=== PATIENT | female | born 1940 | race Caucasian/White ===

== ENCOUNTER → 2018-06-13 12:58 | Outpatient (CLI) | payer MEDICARE, SELFPAY ==
[2018-06-13 13:28] LABS: Abs Immature Grans 0.01 k/cumm (0.0-0.09); Absolute Basophil Count 0.02 k/cumm (0.0-0.2); Absolute Eosinophil Count 0.13 k/cumm (0.0-0.7); Absolute Lymphocyte Count 2.21 k/cumm (1.2-3.4); Absolute Monocyte Count 0.52 k/cumm (0.11-0.7); Absolute Neutrophil Count 5.07 k/cumm (1.2-6.7); Basophils % 0.3; Eosinophils % 1.6; HCT 43.7 % (36.0-46.0); HGB 13.7 g/dL (12.0-15.5); Immature Grans % 0.1; Lymphocytes % 27.8; Mean Corp. HGB Concentration 31.4 g/dL (32.0-36.0); Mean Corpuscular Hemoglobin 28.7 pg (27.0-33.0); Mean Corpuscular Volume 91.4 fL (80-95); Mean Platelet Volume 9.6 fL (8.0-11.0); Monocytes % 6.5; Neutrophils % 63.7; Platelet Count 222 x1000/uL (130-400); RBC 4.78 m/cumm (4.00-5.20); RBC Distribution Width 14.5 % (11.7-14.6); White Blood Cell Count 7.96 k/cumm (4.4-10.8)
[2018-06-13 13:50] LABS: ALT 19 U/L (12-78); AST 15 U/L (15-37); Albumin 3.5 g/dL (3.4-5.0); Alkaline Phosphatase 76 U/L (46-116); Anion Gap 8.9 mmol/L (3-11); BUN 17 mg/dL (7-18); Bilirubin, Total 0.2 mg/dL (0.2-1.0); CO2 30.1 mmol/L (21.0-32.0); CREATININE 1.22 mg/dL (0.55-1.02); Calcium 8.8 mg/dL (8.5-10.1); Chloride 104 mmol/L (98-107); Estimated GFR 42.85 (mL/min/1.73m2); Glucose 100 mg/dL (70-100); Potassium 3.7 mmol/L (3.5-5.1); Sodium 143 mmol/L (136-145); Total Protein 7.6 g/dL (6.4-8.2)
[2018-06-15 11:46] LABS: CEA 0.9 ng/ml
== END ==
PROVIDERS: PCP Family Medicine; Visit Provider Internal Medicine Hematology & Oncology
DX: C50.911 Malignant neoplasm of unspecified site of right female breast (principal); C18.2 Malignant neoplasm of ascending colon; Z17.0 Estrogen receptor positive status [ER+]
CPT/HCPCS: 36415; 80053; 82378; 85025

== ENCOUNTER 2018-08-07 10:46 | Outpatient (CLI) | payer MEDICARE, SELFPAY ==
[2018-08-07 11:08] LABS: Abs Immature Grans 0.01 k/cumm (0.0-0.09); Absolute Basophil Count 0.03 k/cumm (0.0-0.2); Absolute Lymphocyte Count 2.07 k/cumm (1.2-3.4); Absolute Monocyte Count 0.57 k/cumm (0.11-0.7); Absolute Neutrophil Count 3.74 k/cumm (1.2-6.7); Basophils % 0.5; Eosinophils % 1.5; HCT 43.6 % (36.0-46.0); HGB 13.6 g/dL (12.0-15.5); Immature Grans % 0.2; Lymphocytes % 31.7; Mean Corp. HGB Concentration 31.2 g/dL (32.0-36.0); Mean Corpuscular Hemoglobin 28.6 pg (27.0-33.0); Mean Corpuscular Volume 91.6 fL (80-95); Mean Platelet Volume 9.5 fL (8.0-11.0); Monocytes % 8.7; Neutrophils % 57.4; Platelet Count 249 x1000/uL (130-400); RBC 4.76 m/cumm (4.00-5.20); RBC Distribution Width 15.2 % (11.7-14.6); White Blood Cell Count 6.52 k/cumm (4.4-10.8)
[2018-08-07 11:16] LABS: ALT 23 U/L (12-78); AST 17 U/L (15-37); Albumin 3.5 g/dL (3.4-5.0); Alkaline Phosphatase 73 U/L (46-116); Anion Gap 8.6 mmol/L (3-11); BUN 15 mg/dL (7-18); Bilirubin, Total 0.2 mg/dL (0.2-1.0); CO2 31.4 mmol/L (21.0-32.0); CREATININE 1.12 mg/dL (0.55-1.02); Calcium 9.4 mg/dL (8.5-10.1); Chloride 102 mmol/L (98-107); Glucose 97 mg/dL (70-100); Sodium 142 mmol/L (136-145); Total Protein 7.5 g/dL (6.4-8.2)
[2018-08-08 10:03] LABS: CEA 1.3 ng/ml
== END 2018-08-07 11:06 ==
PROVIDERS: PCP Family Medicine; Visit Provider Nurse Practitioner Adult Health
DX: C50.911 Malignant neoplasm of unspecified site of right female breast (principal); Z17.0 Estrogen receptor positive status [ER+]; C18.2 Malignant neoplasm of ascending colon
CPT/HCPCS: 36415; 80053; 82378; 85025

== ENCOUNTER 2018-08-15 00:40 | Outpatient (CLI) | payer MEDICARE, SELFPAY ==
--- NOTE | 2018-08-15 08:55 | DI.NM_ITS ---
SYMPTOMS/DIAGNOSIS: RIGHT HIP PAIN, H/O COLON CA AND BREAST CA, ? METS, D05.90 , C18.2 WHOLE BODY BONE SCAN: Comparison is made with CT of the chest, abdomen and pelvis dated March,. 24.0 mCi of technetium 99m MDP were administered IV. There is mildly increased uptake in the mid thoracic spine and lower lumbar spine. Significant degenerative changes are seen on the CT. Mildly increased activity is also seen in both hips. Degenerative changes are seen at the inferior hip joints bilaterally. There are bilateral knee prostheses. There is increased activity in the right foot and ankle, also likely representing degenerative changes. IMPRESSION: Areas of increased activity consistent with degenerative changes in the spine, hips and right foot. There are no findings to suggest metastatic disease.
== END 2018-08-15 01:00 ==
PROVIDERS: PCP Family Medicine; Visit Provider Nurse Practitioner Adult Health
DX: M25.551 Pain in right hip (principal); M16.11 Unilateral primary osteoarthritis, right hip; M19.071 Primary osteoarthritis, right ankle and foot; Z96.653 Presence of artificial knee joint, bilateral
CPT/HCPCS: 78306

== ENCOUNTER 2018-10-04 14:55 | Outpatient (CLI) | payer MEDICARE, SELFPAY ==
[2018-10-04 15:39] LABS: Abs Immature Grans 0.01 k/cumm (0.0-0.09); Absolute Basophil Count 0.02 k/cumm (0.0-0.2); Absolute Eosinophil Count 0.13 k/cumm (0.0-0.7); Absolute Lymphocyte Count 1.85 k/cumm (1.2-3.4); Absolute Monocyte Count 0.59 k/cumm (0.11-0.7); Absolute Neutrophil Count 4.96 k/cumm (1.2-6.7); Basophils % 0.3; Eosinophils % 1.7; HCT 42.3 % (36.0-46.0); HGB 13.5 g/dL (12.0-15.5); Immature Grans % 0.1; Lymphocytes % 24.5; Mean Corp. HGB Concentration 31.9 g/dL (32.0-36.0); Mean Corpuscular Volume 90.8 fL (80-95); Mean Platelet Volume 9.5 fL (8.0-11.0); Monocytes % 7.8; Neutrophils % 65.6; Platelet Count 230 x1000/uL (130-400); RBC 4.66 m/cumm (4.00-5.20); RBC Distribution Width 14.7 % (11.7-14.6); White Blood Cell Count 7.56 k/cumm (4.4-10.8)
[2018-10-04 15:48] LABS: ALT 21 U/L (12-78); AST 16 U/L (15-37); Albumin 3.5 g/dL (3.4-5.0); Alkaline Phosphatase 86 U/L (46-116); Anion Gap 8.4 mmol/L (3-11); BUN 19 mg/dL (7-18); Bilirubin, Total 0.2 mg/dL (0.2-1.0); CO2 30.6 mmol/L (21.0-32.0); Calcium 8.8 mg/dL (8.5-10.1); Chloride 103 mmol/L (98-107); Estimated GFR 53.91 (mL/min/1.73m2); Glucose 119 mg/dL (70-100); Potassium 3.3 mmol/L (3.5-5.1); Sodium 142 mmol/L (136-145); Total Protein 7.4 g/dL (6.4-8.2)
== END 2018-10-04 15:15 ==
PROVIDERS: PCP Family Medicine; Visit Provider Nurse Practitioner Adult Health
DX: C18.2 Malignant neoplasm of ascending colon (principal); C50.911 Malignant neoplasm of unspecified site of right female breast; Z17.0 Estrogen receptor positive status [ER+]
CPT/HCPCS: 36415; 80053; 85025

== ENCOUNTER 2018-10-13 01:22 | Outpatient (CLI) | payer MEDICARE, SELFPAY ==
--- NOTE | 2018-10-13 10:15 | DI.CT_ITS ---
SYMPTOM/DIAGNOSIS: H/O COLON CA AND BREAST CA. RESTAGE, C50.911, Z17.0 CT CHEST, ABDOMEN AND PELVIS: The study is compared with the previous abdominal CT of 09/08/2017 and was carried out with an intravenous injection of 100 cc Omnipaque 350. CHEST CT: There are emphysematous changes in the lungs. No mass or infiltrate is seen. There is no evidence of hilar or mediastinal adenopathy. There is no pleural effusion. The heart is not enlarged. There is no pericardial effusion. There is no evidence of pulmonary emboli. There are atherosclerotic changes involving the aorta without evidence of an aneurysm. There are no bony findings to suggest metastatic disease. Note is made of bilateral breast implants. There is no evidence of implant rupture. SUMMARY: No evidence of metastatic disease in the chest. ABDOMINAL CT: The with intravenous contrast enhanced CT examination of the abdomen was carried out according to the usual protocol. The liver is intact. The patient is status post cholecystectomy. The pancreas is somewhat atrophic. There is no evidence of a pancreatic mass. There is no evidence of biliary dilatation. The spleen is intact. A small splenule is noted lying anterior to the tip of the spleen. The kidneys and bladder appear unremarkable save for a very small right renal cyst. There is prominence of the left adrenal gland is noted. The findings most likely represent hypertrophy. There is no demonstrated bowel abnormality identified. There is no evidence of obstruction. There is no evidence of an acute appendix. There is no evidence of free air or fluid in the intraperitoneal space in the abdomen or pelvis. Bladder wall thickening is noted likely on the basis of nondistension. The patient is status post hysterectomy. There are degenerative changes throughout the dorsal and lumbar spine in this patient with no evidence of a localized area of bony sclerosis, expansion or destruction. Nothing specific to suggest metastatic disease. When compared with the prior study there is nothing on today's examination to suggest metastatic disease involving the chest, abdomen or pelvis. Note is made of bilateral breast implants without evidence of implant rupture. She is status post hysterectomy. There is also no evidence of metastatic bony disease.
[2018-10-13] MEDS: Omnipaque 350 MG/ML 100 ML BTL IJ (10:21)
== END 2018-10-13 01:42 ==
PROVIDERS: PCP Family Medicine; Visit Provider Nurse Practitioner Adult Health
DX: Z85.038 Personal history of other malignant neoplasm of large intestine (principal); C50.911 Malignant neoplasm of unspecified site of right female breast; Z17.0 Estrogen receptor positive status [ER+]; Z98.82 Breast implant status
CPT/HCPCS: 74177; 71260; J3490

== ENCOUNTER 2018-11-07 10:36 | Outpatient (CLI) | payer MEDICARE, SELFPAY ==
[2018-11-07 11:20] LABS: Abs Immature Grans 0.01 k/cumm (0.0-0.09); Absolute Basophil Count 0.02 k/cumm (0.0-0.2); Absolute Eosinophil Count 0.09 k/cumm (0.0-0.7); Absolute Lymphocyte Count 2.06 k/cumm (1.2-3.4); Absolute Monocyte Count 0.48 k/cumm (0.11-0.7); Absolute Neutrophil Count 4.05 k/cumm (1.2-6.7); Basophils % 0.3; Eosinophils % 1.3; HGB 13.5 g/dL (12.0-15.5); Immature Grans % 0.1; Lymphocytes % 30.7; Mean Corp. HGB Concentration 31.4 g/dL (32.0-36.0); Mean Corpuscular Hemoglobin 28.7 pg (27.0-33.0); Mean Corpuscular Volume 91.3 fL (80-95); Monocytes % 7.2; Neutrophils % 60.4; Platelet Count 216 x1000/uL (130-400); RBC 4.71 m/cumm (4.00-5.20); RBC Distribution Width 14.2 % (11.7-14.6); White Blood Cell Count 6.71 k/cumm (4.4-10.8)
[2018-11-07 11:26] LABS: ALT 22 U/L (12-78); AST 16 U/L (15-37); Albumin 3.3 g/dL (3.4-5.0); Alkaline Phosphatase 78 U/L (46-116); Anion Gap 9.5 mmol/L (3-11); BUN 20 mg/dL (7-18); Bilirubin, Total 0.3 mg/dL (0.2-1.0); CO2 31.5 mmol/L (21.0-32.0); CREATININE 1.01 mg/dL (0.55-1.02); Calcium 9.3 mg/dL (8.5-10.1); Chloride 102 mmol/L (98-107); Estimated GFR 53.29 (mL/min/1.73m2); Glucose 93 mg/dL (70-100); Potassium 4.1 mmol/L (3.5-5.1); Sodium 143 mmol/L (136-145); Total Protein 7.4 g/dL (6.4-8.2)
[2018-11-09 10:24] LABS: CEA 0.8 ng/ml
== END 2018-11-07 10:56 ==
PROVIDERS: PCP Family Medicine; Visit Provider Nurse Practitioner Adult Health
DX: C50.911 Malignant neoplasm of unspecified site of right female breast (principal); Z17.0 Estrogen receptor positive status [ER+]; C18.2 Malignant neoplasm of ascending colon
CPT/HCPCS: 36415; 80053; 82378; 85025

== ENCOUNTER 2019-02-01 10:17 | Outpatient (CLI) | payer MEDICARE, SELFPAY ==
[2019-02-01 10:45] LABS: Abs Immature Grans 0.01 k/cumm (0.0-0.09); Absolute Basophil Count 0.02 k/cumm (0.0-0.2); Absolute Eosinophil Count 0.15 k/cumm (0.0-0.7); Absolute Lymphocyte Count 1.82 k/cumm (1.2-3.4); Absolute Monocyte Count 0.55 k/cumm (0.11-0.7); Absolute Neutrophil Count 4.86 k/cumm (1.2-6.7); Basophils % 0.3; HCT 42.9 % (36.0-46.0); HGB 13.5 g/dL (12.0-15.5); Immature Grans % 0.1; Lymphocytes % 24.6; Mean Corp. HGB Concentration 31.5 g/dL (32.0-36.0); Mean Corpuscular Hemoglobin 28.5 pg (27.0-33.0); Mean Corpuscular Volume 90.5 fL (80-95); Mean Platelet Volume 9.7 fL (8.0-11.0); Monocytes % 7.4; Neutrophils % 65.6; Platelet Count 223 x1000/uL (130-400); RBC 4.74 m/cumm (4.00-5.20); RBC Distribution Width 14.9 % (11.7-14.6); White Blood Cell Count 7.41 k/cumm (4.4-10.8)
[2019-02-01 11:30] LABS: ALT 28 U/L (12-78); AST 20 U/L (15-37); Albumin 3.4 g/dL (3.4-5.0); Alkaline Phosphatase 94 U/L (46-116); Anion Gap 7.5 mmol/L (3-11); BUN 14 mg/dL (7-18); Bilirubin, Total 0.3 mg/dL (0.2-1.0); CO2 30.5 mmol/L (21.0-32.0); CREATININE 1.08 mg/dL (0.55-1.02); Calcium 9.2 mg/dL (8.5-10.1); Chloride 102 mmol/L (98-107); Estimated GFR 49.33 (mL/min/1.73m2); Glucose 101 mg/dL (70-100); Potassium 4.1 mmol/L (3.5-5.1); Sodium 140 mmol/L (136-145); Total Protein 7.5 g/dL (6.4-8.2)
[2019-02-02 10:07] LABS: CEA 1.2 ng/ml
== END 2019-02-01 10:37 ==
PROVIDERS: PCP Family Medicine; Visit Provider Internal Medicine Hematology & Oncology
DX: C18.2 Malignant neoplasm of ascending colon (principal); R53.81 Other malaise
CPT/HCPCS: 36415; 80053; 82378; 85025

== ENCOUNTER 2019-05-14 00:40 | Outpatient (CLI) | payer MEDICARE, SELFPAY ==
[2019-05-14 11:47] LABS: Abs Immature Grans 0.02 k/cumm (0.0-0.09); Absolute Basophil Count 0.01 k/cumm (0.0-0.2); Absolute Eosinophil Count 0.11 k/cumm (0.0-0.7); Absolute Lymphocyte Count 2.03 k/cumm (1.2-3.4); Absolute Monocyte Count 0.49 k/cumm (0.11-0.7); Absolute Neutrophil Count 3.14 k/cumm (1.2-6.7); Basophils % 0.2; Eosinophils % 1.9; HCT 42.9 % (36.0-46.0); HGB 13.5 g/dL (12.0-15.5); Immature Grans % 0.3; Mean Corp. HGB Concentration 31.5 g/dL (32.0-36.0); Mean Corpuscular Hemoglobin 28.5 pg (27.0-33.0); Mean Corpuscular Volume 90.5 fL (80-95); Mean Platelet Volume 10.1 fL (8.0-11.0); Monocytes % 8.4; Neutrophils % 54.2; Platelet Count 233 x1000/uL (130-400); RBC 4.74 m/cumm (4.00-5.20); RBC Distribution Width 14.9 % (11.7-14.6)
[2019-05-14 12:05] LABS: ALT 23 U/L (12-78); AST 15 U/L (15-37); Albumin 3.3 g/dL (3.4-5.0); Alkaline Phosphatase 85 U/L (46-116); Anion Gap 8.6 mmol/L (3-11); BUN 16 mg/dL (7-18); Bilirubin, Total 0.3 mg/dL (0.2-1.0); CO2 28.4 mmol/L (21.0-32.0); CREATININE 1.08 mg/dL (0.55-1.02); Calcium 8.6 mg/dL (8.5-10.1); Chloride 105 mmol/L (98-107); Estimated GFR 49.19 (mL/min/1.73m2); Glucose 86 mg/dL (70-100); Potassium 4.1 mmol/L (3.5-5.1); Sodium 142 mmol/L (136-145); Total Protein 7.1 g/dL (6.4-8.2)
[2019-05-14] MEDS: Omnipaque 350 MG/ML 100 ML BTL IJ (12:25)
--- NOTE | 2019-05-14 12:30 | DI.CT_ITS ---
SYMPTOM/DIAGNOSIS: MALIGNANT NEOPLASM RIGHT BREAST C50.911 Z17.0, MALIGNANT NEOPLASM COLON C18.2 CT CHEST, ABDOMEN AND PELVIS: Comparison is 10/13/18, CT scan of the chest, abdomen and pelvis was performed following oral and intravenous contrast material. CT ABDOMEN AND PELVIS: The liver is normal in size. No suspicious hepatic mass is seen. The portal, superior mesenteric and splenic veins are patent. The patient is status post cholecystectomy. There is no biliary ductal dilatation. The pancreas is unremarkable as is the spleen. Incidental note is made of an accessory spleen. There is unchanged nodularity of the adrenal glands bilaterally. This has been stable compared to the older CT scan available on 01/23/17 The kidneys show normal and symmetric enhancement. There are stable bilateral renal cysts present. No suspicious renal masses are identified. No evidence of obstruction is present. The urinary bladder is intact. The patient appears to be status post hysterectomy. There is atherosclerosis of the abdominal aorta but no aneurysmal dilatation is present. No significant abdominal or pelvic adenopathy, ascites or pneumoperitoneum is present. There is diverticulosis of the colon but no evidence of acute diverticulitis. There is a moderate amount of retained stool throughout the colon. The bowel shows no evidence of obstruction or inflammation. There is no evidence of acute appendicitis present. Degenerative changes are seen in the spine. No evidence of osseous metastatic disease is present. IMPRESSION: No evidence of abdominal or pelvic metastatic disease. Incidental findings in the abdomen and pelvis as described above. CT CHEST: The thoracic aorta is of normal caliber with mild atherosclerosis. Heart size is within normal limits. No significant pericardial effusion is seen. Mild coronary artery calcifications present. No significant thoracic adenopathy is appreciated. No pleural effusion or pneumothorax is identified. Moderately severe central lobular emphysematous are present in the lungs. There is scarring in the lung bases. No focal consolidating infiltrates are seen. No suspicious noncalcified pulmonary nodules are appreciated. There is a triangular 5 mm nodule seen associated with the lateral aspect of the left major fissure likely reflecting an intrapulmonary lymph node. This is unchanged. The tracheobronchial tree is unremarkable. Degenerative changes are seen in the spine. No sclerotic lesions are seen in the bones. IMPRESSION: No evidence of thoracic metastatic disease.
== END 2019-05-14 01:00 ==
PROVIDERS: PCP Family Medicine; Visit Provider Nurse Practitioner Adult Health
DX: C50.911 Malignant neoplasm of unspecified site of right female breast (principal); Z17.0 Estrogen receptor positive status [ER+]; C18.2 Malignant neoplasm of ascending colon; Z90.49 Acquired absence of other specified parts of digestive tract; Z90.710 Acquired absence of both cervix and uterus
CPT/HCPCS: 36415; 74177; 80053; 71260; 82378; 85025; J3490

== ENCOUNTER → 2019-07-26 13:37 | Outpatient (BNVA) | payer MEDICARE, SELFPAY | PROVIDERS: PCP Family Medicine; Referring Provider Family Medicine; Visit Provider Nurse Practitioner Adult Health | DX: G56.21 Lesion of ulnar nerve, right upper limb (principal); G56.01 Carpal tunnel syndrome, right upper limb; I10 Essential (primary) hypertension; J44.9 Chronic obstructive pulmonary disease, unspecified | CPT/HCPCS: 95909; 99203; 99214 ==

== ENCOUNTER → 2019-07-30 08:50 | Outpatient (BNVA) | payer MEDICARE, SELFPAY | PROVIDERS: PCP Family Medicine; Referring Provider Family Medicine; Visit Provider Psychiatry & Neurology Neurology | DX: R69 Illness, unspecified (principal) ==

== ENCOUNTER 2019-09-10 09:02 | Outpatient (CLI) | payer MEDICARE, SELFPAY ==
[2019-09-10 09:29] LABS: Abs Immature Grans 0.01 k/cumm (0.0-0.09); Absolute Basophil Count 0.02 k/cumm (0.0-0.2); Absolute Eosinophil Count 0.09 k/cumm (0.0-0.7); Absolute Monocyte Count 0.49 k/cumm (0.11-0.7); Absolute Neutrophil Count 4.45 k/cumm (1.2-6.7); Basophils % 0.3; Eosinophils % 1.4; HCT 42.1 % (36.0-46.0); HGB 13.2 g/dL (12.0-15.5); Immature Grans % 0.2; Mean Corp. HGB Concentration 31.4 g/dL (32.0-36.0); Mean Corpuscular Hemoglobin 28.6 pg (27.0-33.0); Mean Corpuscular Volume 91.3 fL (80-95); Mean Platelet Volume 9.5 fL (8.0-11.0); Monocytes % 7.4; Neutrophils % 66.7; Platelet Count 243 x1000/uL (130-400); RBC 4.61 m/cumm (4.00-5.20); RBC Distribution Width 14.6 % (11.7-14.6); White Blood Cell Count 6.66 k/cumm (4.4-10.8)
[2019-09-10 09:42] LABS: ALT 26 U/L (14-59); AST 15 U/L (15-37); Albumin 3.4 g/dL (3.4-5.0); Alkaline Phosphatase 75 U/L (46-116); Anion Gap 6.7 mmol/L (3-11); BUN 18 mg/dL (7-18); Bilirubin, Total 0.3 mg/dL (0.2-1.0); CO2 32.3 mmol/L (21.0-32.0); CREATININE 1.06 mg/dL (0.55-1.02); Calcium 8.8 mg/dL (8.5-10.1); Chloride 102 mmol/L (98-107); Estimated GFR 50.27 (mL/min/1.73m2); Glucose 102 mg/dL (70-100); Potassium 3.8 mmol/L (3.5-5.1); Sodium 141 mmol/L (136-145); Total Protein 7.4 g/dL (6.4-8.2)
[2019-09-11 10:46] LABS: CEA 1.3 ng/mL (See Note)
== END 2019-09-10 09:22 ==
PROVIDERS: PCP Family Medicine; Visit Provider Internal Medicine Hematology & Oncology
DX: C18.2 Malignant neoplasm of ascending colon (principal)
CPT/HCPCS: 36415; 80053; 82378; 85025

== ENCOUNTER 2019-11-13 10:43 | Outpatient (CLI) | payer MEDICARE, SELFPAY ==
[2019-11-13 11:14] LABS: Abs Immature Grans 0.02 k/cumm (0.0-0.09); Absolute Basophil Count 0.02 k/cumm (0.0-0.2); Absolute Monocyte Count 0.53 k/cumm (0.11-0.7); Absolute Neutrophil Count 5.33 k/cumm (1.2-6.7); Basophils % 0.3; Eosinophils % 1.3; HCT 43.8 % (36.0-46.0); HGB 13.7 g/dL (12.0-15.5); Immature Grans % 0.3 %; Lymphocytes % 23.1; Mean Corp. HGB Concentration 31.3 g/dL (32.0-36.0); Mean Corpuscular Hemoglobin 28.5 pg (27.0-33.0); Mean Corpuscular Volume 91.1 fL (80-95); Mean Platelet Volume 9.3 fL (8.0-11.0); Monocytes % 6.8; Neutrophils % 68.2; Platelet Count 239 x1000/uL (130-400); RBC 4.81 m/cumm (4.00-5.20); RBC Distribution Width 14.6 % (11.7-14.6)
[2019-11-13 11:28] LABS: ALT 17 U/L (14-59); AST 15 U/L (15-37); Albumin 3.4 g/dL (3.4-5.0); Alkaline Phosphatase 75 U/L (46-116); Anion Gap 7.8 mmol/L (3-11); BUN 18 mg/dL (7-18); Bilirubin, Total 0.3 mg/dL (0.2-1.0); CO2 30.2 mmol/L (21.0-32.0); CREATININE 0.97 mg/dL (0.55-1.02); Calcium 9.4 mg/dL (8.5-10.1); Chloride 104 mmol/L (98-107); Estimated GFR 55.69 (mL/min/1.73m2); Glucose 98 mg/dL (74-106); Potassium 4.3 mmol/L (3.5-5.1); Sodium 142 mmol/L (136-145); Total Protein 7.3 g/dL (6.4-8.2)
[2019-11-14 10:20] LABS: CEA 0.8 ng/mL (See Note)
== END 2019-11-13 11:03 ==
PROVIDERS: PCP Family Medicine; Visit Provider Internal Medicine Hematology & Oncology
DX: C18.2 Malignant neoplasm of ascending colon (principal)
CPT/HCPCS: 36415; 80053; 82378; 85025

== ENCOUNTER 2019-11-16 15:06 | Outpatient (CLI) | payer MEDICARE, SELFPAY ==
[2019-11-16] MEDS: Omnipaque 350 MG/ML 100 ML BTL IJ (14:59)
--- NOTE | 2019-11-16 15:01 | DI.CT_ITS ---
EXAM: CT CHEST PE CTA CLINICAL HISTORY: BREAST CANCER C50.911, DYSPNEA R06.00, COLON CANCER C18.2 TECHNIQUE: CT angiography of the chest was performed with a bolus infusion of 100 cc of Omnipaque 35 0. COMPARISON: CT CHEST/ABD/PEL W from 05/14/2019 FINDINGS: Images obtained through the upper abdomen show unremarkable appearance of visualized portions of live r, spleen, pancreas, adrenals, and kidneys. There is a hiatal hernia. There is no evidence of pulmonary embolic disease. No thoracic aortic aneurysm or dissection. Lungs are generally clear. Pulmonary scarring noted at the lung bases and mild emphysematous changes are noted. No mediastinal or hilar adenopathy. 13 millimeter superior mediastinal node, probably unchanged from prior study of 05/14/2019. IMPRESSION: No evidence of pulmonary embolic disease. No gross evidence of intrathoracic metastatic disease in a patient with a history of breast carcinoma.
== END 2019-11-16 15:26 ==
PROVIDERS: PCP Family Medicine; Visit Provider Internal Medicine Hematology & Oncology
DX: R06.09 Other forms of dyspnea (principal); C18.2 Malignant neoplasm of ascending colon; C50.911 Malignant neoplasm of unspecified site of right female breast; K44.9 Diaphragmatic hernia without obstruction or gangrene; R59.0 Localized enlarged lymph nodes
CPT/HCPCS: 71275; J3490

== ENCOUNTER 2019-11-22 01:14 | Outpatient (CLI) | payer MEDICARE, SELFPAY ==
--- NOTE | 2019-11-22 10:46 | DI.NM_ITS ---
APPROVED REPORT Exam: Exercise Treadmill Patient Location: Out-Patient Room/Bed: Stress Nurse: Anu Naidu RN BMI: 37.90 Baseline Rhythm: Sinus Rhythm Indications: Patient reports since last June she has been having SOB and cough with activity (cl imbing stairs, showers, and making bed) that is associated with a ???dull ache??? across her anterior mid chest. The SOB and ???dull ache??? stops with rest. Medical History Medical History: Breast Cancer Cardiac Medications: Aspirin, Hydrochlorothiazide, Potassium Chloride Allergies: Sulfonamide, Letrozole Cardiac Risk Factors: FHX of CAD, HTN, Asthma, COPD Previous Cardiac Procedures: None Pretest Chest Pain Characteristics: None Exercise History: Sedentary Physical Disabilities: None Lung Sounds: Clear to auscultation Heart Sounds: Regular Stress Test Details Test: Exercise stress testing was performed using a Blair protocol. Nuclear Acquisition: Stress Tc-99m/Stress Tc-99m 1 day Rest Isotope: Tc-99m Sestamibi. Dose: 11.0 Date: 11/22/2019 Injection Time: 0930 Stress Isotope: Tc-99m Sestamibi. Dose: 33.0 Date: 11/22/2019 Injection Time: 1120 HR Max Heart Rate (APMHR): 143 bpm Resting HR Supine: 71 bpm Target HR (85% APMHR): 121 bpm Resting HR Standin bpm Max HR Achieved: 135 bpm % of APMHR: 94 HR response to stress: Normal HR response to stress BP Resting BP Supine: 140/82 mmHg Resting BP Standin/80 mmHg Max BP: 180/90 mmHg BP response to stress: Normal blood pressure response to stress. ECG Resting ECG: Sinus Rhythm ST Change: Normal Ectopy: none Stress ECG: Sinus Tachycardia ST Change: Normal Arrhythmia: None Recovery ECG: Sinus Rhythm Recovery ST Change: Normal Recovery Arrhythmia: None Clinical Reason for Termination: Dyspnea, Dizziness Stress Symptoms: Dyspnea Exercise duration: 3 min4 sec Highest Stage Achieved: Stage 2: 2.5 mph at 12% grade. Exercise capacity: 4.71 METs Functional Capacity: Mildly deminished capacity Stress ECG Conclusion 1. Patient exercised for 3 minutes (4.7 METS) 2. There was no evidence of ischemia on the ECG portion of this exam Protocol Used: Blair Protocol Stress Test Summary STAGE Time (mins) Speed (mph) Grade (%) HR BP SYMPTOMS METS Supine 71 140/82 Standing 82 150/80 1 3 1.7 10 4.6 2 6 2.5 12 7 3 9 3.4 14 10.2 4 12 4.2 16 12.9 5 15 5.0 18 17.2 1 min recovery 118 180/70 3 min recovery 90 180/90 6 min recovery 85 160/90 MPI Conclusion Ejection fraction was 71%. There were no wall motion abnormalities. There is no evidence of ischemia on the imaging portion of this exam. This represents a normal SPECT stress test.
== END 2019-11-22 01:34 ==
PROVIDERS: PCP Family Medicine; Visit Provider Family Medicine
DX: R07.89 Other chest pain (principal); R06.02 Shortness of breath; I10 Essential (primary) hypertension; R42 Dizziness and giddiness; R05 Cough; Z82.49 Family history of ischemic heart disease and other diseases of the circulatory system
CPT/HCPCS: 78452; 93016; 93018; 93017

== ENCOUNTER 2019-12-12 02:31 | Outpatient (CLI) | payer MEDICARE, SELFPAY ==
--- NOTE | 2019-12-12 07:29 | DI.US_ITS ---
APPROVED REPORT EXAM: Comprehensive 2D, Doppler, and color-flow Echocardiogram Patient Location: Out-Patient [employer] Specialist: Rimma Guevara RDCS (AE) Rhythm: NSR Indications: DYSPNEA R06.00, COUGH r05, COPD J44.9 Conclusion Mild concentric left ventricular hypertrophy. Estimated ejection fraction is 65 to 70%. The LV is s mall and hypercontractile Mildly dilated left atrium The aortic valve is trileaflet and sclerotic without stenosis or regurgitation Moderate mitral annular calcification. Mitral leaflets are thickened. There is mild mitral stenosis and mild regurgitation Mild tricuspid regurgitation Trace pulmonic regurgitation The ascending aorta is mildly dilated measuring 3.7 cm Wall motion Left Ventricle The left ventricle is normal size. Left ventricular systolic function is hyperdynamic. Mild left vent ricular hypertrophy. There is normal LV segmental wall motion. elevated left ventricular filling pres sures. LVEF is estimated to be 65-70%. Right Ventricle The right ventricle is normal size. The right ventricular systolic function is normal. Atria Left atrium is mildly dilated. The right atrium size is normal. Aortic Valve The Aortic valve is sclerotic. Aortic valve is trileaflet. There is no aortic valvular stenosis. No a ortic regurgitation is present. Mitral Valve Moderate mitral annular calcification. Mild mitral stenosis. Mild mitral regurgitation. Tricuspid Valve The tricuspid valve is normal in structure. Mild tricuspid regurgitation. Pulmonic Valve Trace to mild pulmonic regurgitation. . Great Vessels The aortic root is normal in size. The ascending aorta is mildly dilated. IVC is normal in size and c ollapses >50% with inspiration. Pericardium Prominent anterior epicardial fat pad is present. 2D Dimensions IVSD d PLAX 1.44 cm F: 0.6-1.0 LV Vol A2C d MOD 41.2 mL LVPW d PLAX 1.24 cm F: 0.6 - 1.0 LV Vol A4C d MOD 39.8 mL LVID d PLAX 4.14 cm F: 3.8 - 5.2 LA vol/ BSA A4C s A-L 34.1 mL/m2 LVDs 2.00 cm F: 2.2 - 3.5 LA Area A4C s MOD 20.38 cm2 Ao Root d 2.93 cm F: 2.7 - 3.3 LV EF A4C MOD 76.6 % RVID Base (AP4) 2.95 cm (M/F) 2.5-4.1 LV EF A2C MOD 65.0 % RA Area A4C 12.85 cm2 LV EF Biplane MOD 71.9 % RA Vol/ BSA A4C s A-L 15.8 mL/m2 IVC Diam exp d SLAX 1.05 cm Ao Asc Diam d 3.72 cm F: 2.3 - 3.1 LV EF Teichholz 82.6 % LVEF (Cash's) 71.89 % F: 54 - 74 LV Volume 31.34 mL F: 46 - 106 LV Volume Index 15.98 mL/m2 F: 29 - 61 LV Vol Biplane MOD 41.5 mL FS 50.95 % M-Mode TAPSE 2.04 cm (M/F) <1.7 LV Diastology MV E' medial 0.053 (>0.07 m/s) E/A Ratio 0.7 LV E/e MED 21.15 (<14) MV E Vmax 1.13 (0.4-1.3 m/s) MV E' lateral 0.045 (>0.1 m/s) MV A Vmax 1.65 (0.4-1.3 m/s) LV E/e LAT 24.80 (<14) MV E/A Ratio 0.67 MV E/E' medial 21.16 MV E/E' lateral 24.84 Aortic Valve LVOT Area 2.91 cm2 AoV Area Vmax 2.14 cm2 LVOT Vmax 1.08 m/s AoV Area/ BSA (Vmax) 1.09 cm2/m2 LVOT Mean Felipe. 0.79 m/s NOEMY Mean Felipe. 2.31 cm2 LVOT Peak Grad 4.6 mmHg NOEMY Mean Felipe. Index 1.18 cm2/m2 LVOT Mean Grad 2.7 mmHg LVOT VTI 0.268 m LVOT Diam s 1.90 cm (M/F) 1.5-2.5 AoV Vmax 1.47 (0.5-1.3 m/s) Velocity Ratio 0.73 AoV Mean Felipe. 0.99 m/s AoV Peak Grad 8.6 mmHg LVOT SV 78.10 mL AoV Mean Grad 4.4 (<5 mmHg) AoV VTI 0.318 (0.18-0.25 m) AoV Area VTI 2.45 (2.5-4.5 cm2) AoV Area/ BSA (VTI) 1.25 cm/m2 Mitral Valve MV DT 287 (160-240 msec) MV Peak Grad 14.2 mmHg MV Mean Grad 5.5 (<2mmHg) MV PHT 83 msec MV Area PHT 2.64 cm2 MV VTI 0.282 m MV Area VTI 2.77 (4.0-6.0 cm2) Pulmonary Valve RVOT Peak Gr. 3.10 mmHg RVOT Mean Gr. 1.95 mmHg RVOT VTI 0.214 m RVOT Vmax 0.88 m/s Tricuspid Valve TR Peak Grad 31.0 mmHg TR Vmax 2.79 m/s RA Pressure 3.00 mmHg RVSP (TR) 34.1 mmHg
== END 2019-12-12 02:51 ==
PROVIDERS: PCP Family Medicine; Visit Provider Family Medicine
DX: R06.09 Other forms of dyspnea (principal); R05 Cough; J44.9 Chronic obstructive pulmonary disease, unspecified; I34.2 Nonrheumatic mitral (valve) stenosis; I34.0 Nonrheumatic mitral (valve) insufficiency
CPT/HCPCS: 93306

== ENCOUNTER 2019-12-27 03:02 | Outpatient (CLI) | payer MEDICARE, SELFPAY ==
--- NOTE | 2019-12-27 12:36 | PFT_ITS ---
PULMONARY FUNCTION TEST REPORT DATE OF SERVICE: December 27, 2019 REQUESTING PROVIDER: Poly Copeland M.D. Spirometry shows mild obstructive airways disease with no significant bronchodilator response. Lung volumes show no evidence of restriction. Diffusion capacity moderately reduced, which is mildly reduced when corrected to alveolar volume. Airways resistance elevated. IMPRESSION: Mild obstructive airways disease with no significant bronchodilator response. This is associated with moderate diffusion defect. Clinical correlation recommended. When this study was compared to previous ones from 01/21/10, 07/05/11, 03/29/13 and 01/18/17, the patient has a basically stable FVC and slight decline in FEV1, a total of 200 cc's. JS/calosl D/
[2019-12-27] MEDS: Inhaler, Assist Device 1 EACH MC (16:18)
[2019-12-27] MEDS: Albuterol HFA 18 GM 200 PUFF INH IH (16:19)
== END 2019-12-27 03:22 ==
PROVIDERS: PCP Family Medicine; Visit Provider Family Medicine
DX: R06.09 Other forms of dyspnea (principal); J43.9 Emphysema, unspecified; J98.4 Other disorders of lung
CPT/HCPCS: 94060; 94726; 94729

== ENCOUNTER 2020-01-24 02:22 | Outpatient (CLI) | payer MEDICARE, SELFPAY ==
[2020-01-24 08:22] LABS: Abs Immature Grans 0.02 k/cumm (0.0-0.09); Absolute Basophil Count 0.02 k/cumm (0.0-0.2); Absolute Eosinophil Count 0.12 k/cumm (0.0-0.7); Absolute Monocyte Count 0.64 k/cumm (0.11-0.7); Absolute Neutrophil Count 5.41 k/cumm (1.2-6.7); Basophils % 0.2; Eosinophils % 1.5; HCT 43.6 % (36.0-46.0); HGB 13.9 g/dL (12.0-15.5); Immature Grans % 0.2 %; Lymphocytes % 22.5; Mean Corp. HGB Concentration 31.9 g/dL (32.0-36.0); Mean Corpuscular Hemoglobin 28.6 pg (27.0-33.0); Mean Corpuscular Volume 89.7 fL (80-95); Mean Platelet Volume 9.8 fL (8.0-11.0); Neutrophils % 67.6; Platelet Count 236 x1000/uL (130-400); RBC 4.86 m/cumm (4.00-5.20); RBC Distribution Width 14.9 % (11.7-14.6); White Blood Cell Count 8.01 k/cumm (4.4-10.8)
[2020-01-24 08:37] LABS: ALT 22 U/L (14-59); AST 15 U/L (15-37); Albumin 3.5 g/dL (3.4-5.0); Alkaline Phosphatase 78 U/L (46-116); Anion Gap 7.9 mmol/L (3-11); BUN 16 mg/dL (7-18); Bilirubin, Total 0.4 mg/dL (0.2-1.0); CO2 31.1 mmol/L (21.0-32.0); CREATININE 1.08 mg/dL (0.55-1.02); Calcium 9.6 mg/dL (8.5-10.1); Chloride 102 mmol/L (98-107); Estimated GFR 49.19 (mL/min/1.73m2); Glucose 108 mg/dL (74-106); Sodium 141 mmol/L (136-145); Total Protein 7.8 g/dL (6.4-8.2)
[2020-01-25 10:07] LABS: CEA 1.3 ng/mL (See Note)
== END 2020-01-24 02:42 ==
PROVIDERS: PCP Family Medicine; Visit Provider Internal Medicine Hematology & Oncology
DX: C18.2 Malignant neoplasm of ascending colon (principal)
CPT/HCPCS: 36415; 80053; 82378; 85025

== ENCOUNTER 2020-06-25 04:32 | Outpatient (CLI) | payer MEDICARE, SELFPAY ==
--- NOTE | 2020-06-25 | DI.CT_ITS ---
EXAM: CT CHEST/ABD/PEL W CLINICAL HISTORY: BREAST CA STAGE 1 RT, C50.911, NEOPLASM ASCENDING COLON TECHNIQUE: Imaging Protocol: Axial computed tomography images with coronal and sagittal reformatted images were created and reviewed CONTRAST MATERIAL: Intravenous: Omnipaque 350 Contrast volume:100 mL Oral: Yes COMPARISON: CR RIGHT SHOULDER COMPLETE from 07/05/[address] CHEST/ABD/PEL W from 05/14/[address] CHEST PE CTA from 11/16/2019 FINDINGS: CHEST: Tracheobronchial tree: Patent where visualized. Mediastinum and Dari: No dominant adenopathy or fluid collection. Hiatal hernia. Pulmonary parenchyma: No focal consolidation. Atelectasis or scarring is seen in the right middle lo be and left lingula. There are a few tiny noncalcified pulmonary nodules associated with the fissure s likely reflecting lymph nodes. These appears stable. There is a 3 mm pulmonary nodule in the supe rior segment of the left lower lobe not definitely appreciated on the prior examinations. Centrilobu lar emphysema. Pleura: No effusion or pneumothorax. Heart: The heart is not dilated. Mild coronary artery calcification. No pericardial effusion. Aorta: Thoracic aorta non-dilated. Atherosclerosis. Lymph nodes: Within normal limits. Bones:Degenerative changes. Soft tissues: Unremarkable. ABDOMEN: Liver: Normal density. No measurable mass. Portal, Superior Mesenteric, and Splenic Veins: Unremarkable. Gallbladder and Biliary Tract: Status post cholecystectomy. No biliary ductal dilatation. Pancreas: Normal density, no abnormal calcifications or inflammatory process. Spleen: Normal. Adrenals: Stable bilateral adrenal nodules. Kidneys: Normal size, contour and axis. No radiodense stones or obstructive uropathy. No masses seen. Abdominal Aorta: Abdominal portion non-dilated. Atherosclerosis. Bowel: No obstruction or bowel wall thickening. Appendix is unremarkable. Colonic diverticulosis. No evidence of acute diverticulitis. Small hiatal hernia. Peritoneal Cavity: No ascites, collection or mesenteric inflammatory response. Lymph Nodes: Within normal limits. Bones: Degenerative changes are present. Soft Tissues: Fat containing midline upper abdominal wall hernia. Fat containing bilateral inguinal hernia. PELVIS: Bladder: Symmetric distention, no gross wall thickening. Reproductive Organs: Status post hysterectomy. Lymph Nodes: Within normal limits. Bones: Degenerative changes. IMPRESSION: 1. Stable CT scan of the abdomen and pelvis. No evidence of abdominal or pelvic metastatic disease. 2. 3 mm pulmonary nodule in the superior segment of the left lower lobe. 3. Centrilobular emphysema. 4. Otherwise stable CT scan of the chest. RADIATION DOSE DELIVERED: Total DLP DATA REPOSITORY: All CT scans at this facility are submitted to the National Radiology Data Registry (NRDR) Dose Index Registry (DIR) with the [employer] (A[employer]). RADIATION OPTIMIZATION: All CT scans at this facility use at least one of these dose optimization te chniques: automated exposure control; mA and/or kV adjustment per patient size (includes targeted exa ms where dose is matched to clinical indication); or iterative reconstruction.
[2020-06-25] MEDS: Breeza Beverage 473 ML BTL PO ×2 (08:11→08:12)
[2020-06-25] MEDS: Omnipaque 350 MG/ML 50 ML BTL PO (08:12)
[2020-06-25 08:45] LABS: CREATININE 1.05 mg/dL (0.55-1.02); Estimated GFR 50.69 (mL/min/1.73m2)
[2020-06-25] MEDS: Normal Saline - Diluent 50 ML VIAL IV (10:00)
[2020-06-25] MEDS: Omnipaque 350 MG/ML 100 ML BTL IJ (10:10)
== END 2020-06-25 04:52 ==
PROVIDERS: PCP Family Medicine; Visit Provider Internal Medicine Hematology & Oncology
DX: C50.911 Malignant neoplasm of unspecified site of right female breast (principal); R91.1 Solitary pulmonary nodule; J43.2 Centrilobular emphysema
CPT/HCPCS: 74177; 71260; 82565; J3490; Q9967

== ENCOUNTER 2020-07-14 11:09 | Outpatient (CLI) | payer MEDICARE, SELFPAY ==
--- NOTE | 2020-07-11 | DI.US_ITS ---
EXAM: US LOWER EXTREMITY VENOUS RT CLINICAL HISTORY: RT LEG EDEMA, R60.0, H/O BREAST AND COLON CA, ? DVT. TECHNIQUE: Ultrasound performed using standard protocol. COMPARISON: US US ECHOCARDIOGRAM from 12/12/2019 FINDINGS: Duplex venous ultrasound was performed according to the usual protocol. The deep veins are freely com pressible throughout and there is normal flow augmentation with manual calf compression. 2D and Doppl er evaluation are unremarkable. IMPRESSION: No evidence of deep venous thrombosis of the right lower extremity DATA REPOSITORY:
== END 2020-07-14 11:29 ==
PROVIDERS: PCP Family Medicine; Visit Provider Internal Medicine Hematology & Oncology
DX: R60.0 Localized edema (principal)
CPT/HCPCS: 93971

== ENCOUNTER 2020-10-27 02:06 | Outpatient (CLI) | payer MEDICARE, SELFPAY ==
--- NOTE | 2020-10-27 | DI.CT_ITS ---
EXAM: CT CHEST W CLINICAL HISTORY: H/O BREAST AND COLON CA,C18.2,F/U NEW NODULE LT LOWER LOBE,R91.1. TECHNIQUE: Multi planar reconstructions were performed. CONTRAST MATERIAL: Omnipaque 350; 70 cc COMPARISON: CT CHEST WITH CONTRAST from 03/18/[address] CHEST/ABD/PEL W from 05/14/[address] CHEST PE CTA from 11/16/2019 FINDINGS: CHEST: LUNGS: In the right lung there is a pleural based noncalcified 5 millimeter nodule posteriorly in the right upper lobe which is unchanged. It is also unchanged from a chest CT a scan performed 11/16/19 and February 2017. also unchanged from CT scan April 2019. No new focal right lung findings. In the oppo site-left lung there are increased markings in the lingular segment which are unchanged from at least April 2019. No new focal left lung findings. No pleural effusions on either side. MEDIASTINUM: There is no new hilar nor mediastinal adenopathy. Previously described small benign-appe aring lymph node in the mediastinal fat is unchanged. There is no new mediastinal nor subcarinal gurjit opathy. There is no axillary adenopathy. Visualized thyroid unremarkable. CARDIAC: Heart size is normal. There is no pericardial effusion.Caliber of the thoracic aorta is wit hin normal limits. VISUALIZED UPPER ABDOMEN:There are no significant adrenal masses. Gallbladder surgically absent. Christopher ateral mastectomies. OSSEOUS: No significant osseous lesions.. IMPRESSION: 1. Stable bilateral pulmonary findings. No new ominous pulmonary nodules nor pleural effusions nor ne w significant intrathoracic adenopathy. 2. No new significant osseous lesions. 3. Small retrocardiac hiatal hernia noted. RADIATION DOSE DELIVERED: 557.18mGy.cm Total DLP DATA REPOSITORY: All CT scans at this facility are submitted to the National Radiology Data Registry (NRDR) Dose Index Registry (DIR) with the [employer] (ACR). RADIATION OPTIMIZATION: All CT scans at this facility use at least one of these dose optimization te chniques: automated exposure control; mA and/or kV adjustment per patient size (includes targeted exa ms where dose is matched to clinical indication); or iterative reconstruction.
[2020-10-27 12:29] LABS: Abs Immature Grans 0.02 10^3/uL (0.0-0.06); Absolute Basophil Count 0.03 10^3/uL (0.0-0.2); Absolute Eosinophil Count 0.13 10^3/uL (0.0-0.7); Absolute Lymphocyte Count 1.68 10^3/uL (1.2-3.4); Absolute Monocyte Count 0.45 10^3/uL (0.1-0.8); Basophils % 0.4; Eosinophils % 1.9; HCT 43.1 % (36.0-46.0); HGB 13.4 g/dL (11.2-15.7); Immature Grans % 0.3; Lymphocytes % 24.3; MCH 28.5 pg (27.0-33.0); MCHC 31.1 % (32.0-36.0); MCV 91.7 fL (80-95); MPV 9.9 fL (8.0-11.0); Monocytes % 6.5; Neutrophils % 66.6; Nucleated RBC 0 %; Platelet Count 234 10^3/uL (130-400); RDW 13.6 % (11.7-14.6); RDW-SD 46.5 fL; WBC 6.91 10^3/uL (4.4-10.8)
[2020-10-27 12:55] LABS: ALT 21 U/L (14-59); AST 18 U/L (15-37); Albumin 3.5 g/dL (3.4-5.0); Alkaline Phosphatase 70 U/L (46-116); Anion Gap 5.6 mmol/L (3-11); BUN 15 mg/dL (7-18); Bilirubin, Total 0.2 mg/dL (0.2-1.0); CO2 30.4 mmol/L (21.0-32.0); CREATININE 1.11 mg/dL (0.55-1.02); Calcium 9.1 mg/dL (8.5-10.1); Chloride 103 mmol/L (98-107); Estimated GFR 47.54 (mL/min/1.73m2); Glucose 111 mg/dL (74-106); Potassium 3.3 mmol/L (3.5-5.1); Sodium 139 mmol/L (136-145); Total Protein 7.5 g/dL (6.4-8.2)
[2020-10-27] MEDS: Omnipaque 350 MG/ML 100 ML BTL IV (13:17)
== END 2020-10-27 02:26 ==
PROVIDERS: PCP Family Medicine; Visit Provider Internal Medicine Hematology & Oncology
DX: C18.2 Malignant neoplasm of ascending colon (principal); R91.8 Other nonspecific abnormal finding of lung field; K44.9 Diaphragmatic hernia without obstruction or gangrene; I10 Essential (primary) hypertension
CPT/HCPCS: 80053; 71260; 82378; 85025; J3490

== ENCOUNTER 2021-02-27 16:08 | Emergency (ER) | payer MEDICARE, SELFPAY ==
[2021-02-27 16:27] VITALS: BP 181/95; PULSE 80; RESP 18; TEMP 36.4; O2SAT 98
--- NOTE | 2021-02-27 16:45 | DI.RAD_ITS ---
Exam(s) XR HAND LT COMPLETE EXAM: XR HAND LT COMPLETE CLINICAL HISTORY: 4th finger injury/lac. TECHNIQUE: 2D digital imaging was performed. COMPARISON: No exams were available for comparison FINDINGS: No evidence of acute fracture nor subluxation. Advanced degenerative changes at the articulation bet ween the thumb metacarpal and trapezium are noted. No osseous lesions.. There is mild soft tissue s welling around the proximal phalanx of the 4th-ring finger. No fracture at this level and no radiopa que foreign body. No erosions. IMPRESSION: DATA REPOSITORY: RADIATION DOSE DELIVERED:
--- NOTE | 2021-02-27 16:53 | ED.GENADUL_ITS ---
Discharge Plan Disposition Patient Disposition: HOME Condition: Stable Discharge Details Clinical Impression: Finger laceration Primary Care Provider: Poly Copeland ED Provider: Benoit Corado Home Meds and New Rx's Prescriptions: Continued [id number] 600 mg calcium- 800 unit-50 mg tablet 1 tab PO DAILY RF: 0 albuterol sulfate [Ventolin HFA] 90 mcg/actuation HFA aerosol inhaler 2 puff Inhalation QID PRN (Reason: bronchospasm) Qty: 3 RF: 4 cholecalciferol (vitamin D3) 1,000 unit capsule 1,000 unit PO DAILY RF: 0 telmisartan [Micardis] 40 mg tablet 40 mg PO DAILY Qty: 90 RF: 7 furosemide 40 mg tablet 40 mg PO DAILY Qty: 90 RF: 5 triamcinolone acetonide 0.1 % cream 1 applic TP BID PRNRF: 0 aspirin [Aspirin Low-Strength] 81 MG tablet,chewable 81 mg PO DAILY RF: 0 polyethylene glycol 3350 [Miralax] 527 GM powder 17 g PO .QOD PRNQty: 3 RF: 4 cyanocobalamin (vitamin B-12) 2,000 mcg tablet 2,000 mcg PO DAILY Qty: 100 RF: 12 potassium chloride 20 mEq tablet,ER particles/crystals 20 meq PO DAILY Qty: 90 RF: 4 fluticasone propion-salmeterol [Advair Diskus] 250-50 mcg/dose blister with device 1 inh Inhalation BID Qty: 180 RF: 4 omeprazole 20 mg capsule,delayed release(DR/EC) 20 mg PO DAILY Qty: 90 RF: 12 Incruse Ellipta 62.5 mcg/actuation blister with device 1 inh Inhalation DAILY Qty: 90 RF: 12 multivitamin [Daily Multiple] 1 EACH tablet 1 ea PO DAILY RF: 0 No Action Toviaz 8 mg tablet extended release 24 hr 8 mg PO DAILY Qty: 90 RF: 5 Discharge Instructions Instructions: Finger Laceration (ED) Additional Instructions: Laceration repaired with a total of 6 sutures. X-ray was unremarkable. Please keep the laceration clean and dry, leave the initial dressing on for the next 36-48 hours and then change daily. Rest, elevate, cool compresses as tolerated. Over the counter medications such as Tylenol as directed for discomfort. Please watch for new or worsening symptoms and return to the ER for any concerns. I would like you to have the sutures removed in approximately 10 days. I do recommend contacting your primary care provider for a wound recheck sometime next week to be sure there is no signs of infection. Discharge Data Discharge Date/Time-TO BE ENTERED AT DEPARTURE: 02/27/21 17:42 Medical Decision Making <SARAH Carrizales - Last Filed: 02/27/21 17:56> 80-year-old female, [id number] presents for a left fourth finger injury. It appears as though her last tetanus update was 2012. Will obtain x-ray to rule any bony involvement, will update tetanus, and this will need to be repaired. Neuro, vascular, tendon intact. Dr. Marquez personally evaluated the patient, please see his note. X-ray unremarkable as reviewed by me and confirmed by radiology. Discussed x-ray findings with patient. No indication for antibiotic therapy. Digital block was performed and laceration was repaired with difficulty, patient tolerated well. Wound was then dressed with a nonsticky antibiotic dressing. Patient has no additional questions or concerns and is comfortable discharge. Medical Records Medical records reviewed: Yes I reviewed the patient's medical records. Imaging Data Radiologic Study: Attestation: I personally reviewed and interpreted this imaging study as follows: Radiologist's impression: Left hand negative <Luke Marquez MD - Last Filed: 03/10/21 21:45> Patient seen, examined, and discussed with SARAH Corado. I agree with treatment plan as discussed/documented. HPI <SARAH Carrizales - Last Filed: 02/27/21 17:56> General Mode of arrival: ambulatory . Date/Time Provider Initiated Documentation: 02/27/21 16:37 . Limitations to Documentation: no limitations . Information obtained by: patient . HPI Narrative: This is a 80-year-old female, [id number], presenting to the ER for a left fourth digit injury that occurred just prior to arrival. She states that she was using a sewing machine at home, caught her fourth finger on the sewing machine needle and then pulled a way. Reports mild pain, denies any numbness, tingling, weakness. Denies any other injury. Unsure of her last tetanus status. Reports that the bleeding is controlled. Did not take any medication for discomfort prior to arrival. Patient with a past medical history of asthma, hypertension, GERD. Related Data Home Medications Medication Instructions Recorded Confirmed aspirin [Aspirin Low-Strength] 81 mg PO DAILY tab-cap 11/05/15 03/10/21 polyethylene glycol 3350 [Miralax] 17 g PO .QOD PRN #3 12/16/15 03/10/21 multivitamin [Daily Multiple] 1 ea PO DAILY 04/07/17 03/10/21 calcium 600 mg-D3 800 unit-mag11 1 tab PO DAILY 01/15/19 03/10/21 50 gi-hubv-wbrlcj-bandar-s.borat tablet cholecalciferol (vitamin D3) 25 1,000 unit PO DAILY 07/26/19 03/10/21 mcg (1,000 unit) capsule triamcinolone acetonide 0.1 % 1 applic TP BID PRN gm 11/19/19 03/10/21 topical cream albuterol sulfate 90 mcg/actuation 2 puff INHALATION QID PRN #3 ea 01/17/20 03/10/21 aerosol inhaler cyanocobalamin (vitamin B-12) 2,000 mcg PO DAILY #100 tab 02/10/21 03/10/21 2,000 mcg tablet fluticasone 250 mcg-salmeterol 50 1 inh INHALATION BID #180 each 02/10/21 03/10/21 mcg/dose blistr powdr for inhalation omeprazole 20 mg capsule,delayed 20 mg PO DAILY #90 tab-cap 02/10/21 03/10/21 release potassium chloride 20 mEq 20 meq PO DAILY #90 tab 02/10/21 03/10/21 tablet,extended release(part/cryst) umeclidinium 62.5 mcg/actuation 1 inh INHALATION DAILY #90 each 02/10/21 03/10/21 blister powder for inhalation Micardis 40 mg tablet 40 mg PO DAILY #90 tab NS 02/26/21 03/10/21 furosemide 40 mg tablet 40 mg PO DAILY #90 tab 02/26/21 03/10/21 Toviaz 8 mg tablet,extended release 8 mg PO DAILY #90 tab NS 03/05/21 03/10/21 Previous Rx's Medication Instructions Recorded albuterol sulfate 90 mcg/actuation 2 puff INHALATION QID PRN #3 ea 01/17/20 aerosol inhaler cyanocobalamin (vitamin B-12) 2,000 mcg PO DAILY #100 tab 02/10/21 2,000 mcg tablet fluticasone 250 mcg-salmeterol 50 1 inh INHALATION BID #180 each 02/10/21 mcg/dose blistr powdr for inhalation omeprazole 20 mg capsule,delayed 20 mg PO DAILY #90 tab-cap 02/10/21 release potassium chloride 20 mEq 20 meq PO DAILY #90 tab 02/10/21 tablet,extended release(part/cryst) umeclidinium 62.5 mcg/actuation 1 inh INHALATION DAILY #90 each 02/10/21 blister powder for inhalation Micardis 40 mg tablet 40 mg PO DAILY #90 tab NS 02/26/21 furosemide 40 mg tablet 40 mg PO DAILY #90 tab 02/26/21 Toviaz 8 mg tablet,extended release 8 mg PO DAILY #90 tab NS 03/05/21 Allergies Allergy/AdvReac Type Severity Reaction Status Date / Time Sulfa (Sulfonamide Allergy Intermediate BURNING Verified 03/10/21 09:38 Antibiotics) TONGUE letrozole AdvReac Intermediate Insomnia, Verified 03/10/21 09:38 depression General Stated Complaint: Laceration LALA: 4 Review of Systems <SARAH Carrizales - Last Filed: 02/27/21 17:56> Constitutional Constitutional: Denies fever(s) and Denies weakness Musculoskeletal Musculoskeletal: Denies arthralgias, Denies numbness and Denies tingling Integumentary/Breasts Skin/Breast: Denies erythema and Denies rash Neurologic Neurologic: Denies numbness, Denies tingling and Denies weakness [facility] <SARAH Carrizales - Last Filed: 02/27/21 17:56> Medical History Anticoagulated on warfarin W/U neg. Asthma Breast cancer Carpal tunnel syndrome Cholecystitis 10/29/09 unspecified Cholecystitis (10/29/09) Chronic obstructive lung disease, type A (03/26/13) Colon cancer Colon polyp COPD (chronic obstructive pulmonary disease) Disorder of vitamin B12 Diverticulosis Diverticulosis of colon without diverticulitis (11/19/08) As found during colonoscopy on 11/06/08 Essential hypertension (10/05/13) Gastroesophageal reflux disease without esophagitis Hiatal hernia (09/02/08) Hypertension Impacted cerumen of right ear 01/15/15 Impacted cerumen of right ear (01/15/15) Malignant neoplasm of female breast (12/21/08) left mastectomy Metastatic colon cancer in female (01/23/17) 01/23/2017; 11/06 L.N. + ; S/P RIGHT HEMICOLECTOMY Obesity Osteoarthritis of right knee (10/29/15) 10/29/15; END STAGE RIGHT KNEE Renal insufficiency, mild Sensory hearing loss, bilateral (01/15/15) Shortness of breath w/u neg Smoker 1PPD/47 years--quit 10/24/2002 Smoker Tinnitus (01/15/15) Urinary, incontinence, stress female (05/04/11) Vitamin D deficiency Vitamin D deficiency disease (08/12/08) Surgical History Arthroplasty 10/29/15; RIGHT KNEE; DR. FORBES Breast, Mastectomy Cholecystectomy (~10/2009) Colectomy right hemicolectomy. Colonoscopy - MAC (04/12/17) Colonoscopy - MAC (05/12/18) H/O mastectomy Hemicolectomy (01/23/17) RIGHT History of mastectomy Hysterectomy, Laproscopic (~1978) Replacement of total knee joint (~2002) LEFT S/P laparoscopic hysterectomy S/P left mastectomy 12/10/14 S/P total knee replacement left-2002; right-10/2005 Status post cholecystectomy Status post laparoscopic hysterectomy Status post left mastectomy (12/10/14) Status post total knee replacement Family History Mother , 71 Heart disease Colon cancer Father , 75 Essential hypertension Heart disease Alcohol abuse Maternal Grandfather , 82 Essential hypertension Heart disease Stroke Paternal Grandfather , 62 Heart disease Maternal Grandmother , 88 Essential hypertension Breast cancer Paternal Grandmother , 98 Diabetes Essential hypertension Stroke Sister Asthma Sister No problems noted. Sister No problems noted. Son No problems noted. Son No problems noted. Son No problems noted. 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 Pets and animals: No Sexually active: No Do you think of yourself as: straight/heterosexual Current gender identity: female What is your relationship status?: How often do you talk on the phone with friends or family?: three or more times per week How often do you get together with friends or relatives?: three or more times per week How often do you attend anabaptist or evangelical services?: decline to answer Do you belong to any clubs or organized social groups?: no Panel score (0-1 are the most socially isolated patients): 1 What type of physical activity do you participate in: other Details: Treadmill Duration: 15-30 minutes/day Frequency: daily Tabatha/Rastafari: Yazidi Special tabatha needs: No Seatbelt use: always Helmet use: No Drive intox or ride w/intox 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 Do you feel safe at home: Yes Exam <SARAH Carrizales - Last Filed: 02/27/21 17:56> Const General: cooperative, healthy appearing, comfortable and no acute distress Orientation: alert and awake [facility] Head: normal to inspection, normocephalic and atraumatic Eyes General: appearance normal, both eyes and all related structures Conjunctivae: conjunctivae normal Neck Neck: normal visual inspection, trachea midline and supple Resp Effort & Inspection: normal respiratory effort and able to speak in complete sentences Cardio Rate: regular rate Rhythm: regular rhythm Skin General skin exam: no rashes or lesions noted Neuro General: patient alert, patient awake, moves all extremities and no focal motor deficits Motor: muscle tone normal throughout Sensory Exam: no sensory deficits noted and normal double simultaneous stimulation Extrem General: full ROM and capillary refill normal Other: Left hand fourth digit along the flexor aspect at and distal to the DIP joint there is an irregular laceration approximately 2-1/2 cm in total length. This laceration is noncircumferential and does not evolve the nail. Neuro, vascular, tendon intact. No obvious foreign body. No arterial bleeding. 5 out of 5 strength. Psych Appearance: grossly normal Mental Status: mental status grossly normal Course <SARAH Carrizales - Last Filed: 02/27/21 17:56> Vital Signs Vital signs: Vital Signs Temperature 36.4 C L 02/27/21 16:27 Pulse 80 02/27/21 16:27 Respiratory Rate 18 02/27/21 16:27 Blood Pressure 181/95 H 02/27/21 16:27 Pulse Oximetry 98 02/27/21 16:27 Temperature 36.4 C L 02/27/21 16:27 Temperature Source Skin 02/27/21 16:27 Pulse 80 02/27/21 16:27 Respiratory Rate 18 02/27/21 16:27 Blood Pressure 181/95 H 02/27/21 16:27 Blood Pressure Position Sitting 02/27/21 16:27 Pulse Oximetry 98 02/27/21 16:27 Pain Level 2 02/27/21 16:27 Procedures <SARAH Carrizales - Last Filed: 02/27/21 17:56> Laceration Laceration 1: Site: hand Side (If applicable): left Size (cm): 2.5 Description: irregular Depth: simple, single layer Local Anesthetic: Lidocaine 1% Amount of anesthesia used (mL): 5 Pre-repair: wound explored, irrigated extensively and deep structures intact Skin layer closed with: nylon Size (cm): 4-0 Number of sutures: 6 Technique: simple, interrupted
--- NOTE | 2021-02-27 17:03 | DI.VRAD_ITS ---
PROCEDURE INFORMATION: Exam: XR Left Hand Exam date and time: 02/27/2021 4:38 PM Age: 80 years old Clinical indication: Other: 4th finger injury, lac; Additional info: Caught finger in knitting machine TECHNIQUE: Imaging protocol: XR Left hand. Views: 3 or more views. COMPARISON: NM WHOLE BODY BONE SCAN 08/15/2018 12:17 PM FINDINGS: Bones/joints: Hypertrophic degenerative changes of the 1st carpometacarpal joint are present with joint space narrowing and subchondral sclerosis. No acute fracture or dislocation is seen. Soft tissues: Soft tissue swelling is present involving the 4th finger. IMPRESSION: 1. Soft tissue swelling. 2. No acute fracture. 3. Chronic degenerative changes are present primarily at the 1st carpometacarpal joint. Dictated and Authenticated by: Gustavo Hays MD. Ordering:MARTINEZ Laboy MD
== END 2021-02-27 17:42 | disposition home or self-care (01) ==
PROVIDERS: Emergency Provider Physician Assistant; PCP Family Medicine
DX: S61.215A Laceration without foreign body of left ring finger without damage to nail, initial encounter (principal); W27.3XXA Contact with needle (sewing), initial encounter
CPT/HCPCS: 12001; 90471; 99281; 73130

== ENCOUNTER 2021-03-27 02:46 | Outpatient (CLI) | payer MEDICARE, SELFPAY ==
[2021-03-27 11:09] LABS: ALT 18 U/L (14-59); AST 16 U/L (15-37); Albumin 3.6 g/dL (3.4-5.0); Alkaline Phosphatase 75 U/L (46-116); BUN 19 mg/dL (7-18); Bilirubin, Total 0.3 mg/dL (0.2-1.0); Chloride 104 mmol/L (98-107); Estimated GFR 53.48 (mL/min/1.73m2); Glucose 89 mg/dL (74-106); NT-proBNP 121 pg/mL (<300); Potassium 4.1 mmol/L (3.5-5.1); Sodium 144 mmol/L (136-145); Total Protein 7.6 g/dL (6.4-8.2)
[2021-03-27 11:48] LABS: Vitamin B12 1721 pg/mL (193-986)
[2021-03-30 05:25] LABS: Vitamin D 25 Total 47.5 ng/mL (30-100)
== END 2021-03-27 02:47 | disposition home or self-care (01) ==
LOC: LBO 02:46
PROVIDERS: PCP Family Medicine; Visit Provider Family Medicine
DX: I10 Essential (primary) hypertension (principal); R06.09 Other forms of dyspnea; E55.9 Vitamin D deficiency, unspecified; E53.8 Deficiency of other specified B group vitamins
CPT/HCPCS: 36415; 80053; 82306; 82607; 83880

== ENCOUNTER 2021-05-11 01:35 | Outpatient (CLI) | payer MEDICARE, SELFPAY ==
--- NOTE | 2021-05-11 | DI.CT_ITS ---
Exam(s) CT CHEST/ABD/PEL W EXAM: CT CHEST/ABD/PEL W CLINICAL HISTORY: COLON CA,C18.2,S/P RT HEMICOLECTOMY,RESTAGING EXAM. TECHNIQUE: Imaging Protocol: Axial computed tomography images with coronal and sagittal reformatted images were created and reviewed CONTRAST MATERIAL: Intravenous: Omnipaque 350 Contrast volume:100 ml Oral: Yes COMPARISON: CT CT CHEST/ABD/PEL W from 06/25/2020 FINDINGS: CHEST: LUNGS: Infiltrate in the lingular segment of left lung is unchanged. No new areas of infiltrate in e ither lung field and there are no new pulmonary nodules. There are no pleural effusions. No focal f indings in trachea and mainstem bronchi. MEDIASTINUM: There is no hilar nor mediastinal adenopathy. Small-moderate size hiatal hernia noted, s imilar to previous. CARDIAC: Heart size upper normal. Mitral valve calcification noted.No pericardial effusion. OSSEOUS: No significant osseous lesions.. ABDOMEN: There is no ascites. LIVER: There are no focal hepatic lesions nor dilatation of intrahepatic ducts. GALLBLADDER/BILIARY: The gallbladder is again noted to be surgically absent. CBD is not dilated. PANCREAS: No evidence of pancreatic mass nor dilatation of the pancreatic duct. Few small calcifications are noted in the uncinate process tip of the pancreas, unchanged. No new pa ncreatic findings. \ SPLEEN: Spleen is not enlarged. There are no intrasplenic lesions. Splenic and portal veins are marcos nt. ADRENALS: There is slight thickening of the left adrenal gland which is unchanged. The lesser thicke marlyn of the right adrenal gland again noted KIDNEYS: There is 1 cm cyst again noted in the superior pole of the right, unchanged. LYMPH NODES: There is no retroperitoneal nor paraaortic adenopathy. ABDOMINAL WALL: No evidence of significant anterior abdominal wall hernia. GI: Again noted is partial right hemicolectomy. There is no evidence of small-bowel obstruction.No a bnormal collection around the level of the right-sided anastomosis. No mesenteric streaking PELVIS: LYMPH NODES: There is no intrapelvic nor inguinal adenopathy. GI: Appendix is surgically absent. There is extensive sigmoid diverticulosis. No obvious acute dive rticulitis. URINARY BLADDER: No calculi nor masses evident REPRODUCTIVE: Uterus is surgically absent. There are no abnormal adnexal masses nor free fluid in th e pelvis. OSSEOUS: No significant osseous lesions. IMPRESSION: 1. Compared to the previous study June 2020 there is again noted evidence of partial right hemic olectomy. There is no bowel obstruction. No free air. No abscess. No obvious lymphadenopathy. 2. Slight thickening of the left adrenal gland is again noted 3. No new intrathoracic findings evident. Previously present mild infiltrate in the lingular segment of the left lung is unchanged. No new pulmonary nodules nor pleural effusions are no intrathoracic adenopathy. 4. No significant osseous lesions. RADIATION DOSE DELIVERED: 2,192.37mGy.cm Total DLP DATA REPOSITORY: All CT scans at this facility are submitted to the National Radiology Data Registry (NRDR) Dose Index Registry (DIR) with the [employer] (A[employer]). RADIATION OPTIMIZATION: All CT scans at this facility use at least one of these dose optimization te chniques: automated exposure control; mA and/or kV adjustment per patient size (includes targeted exa ms where dose is matched to clinical indication); or iterative reconstruction.
[2021-05-11] MEDS: Breeza Beverage 473 ML BTL PO ×2 (08:39→08:41)
[2021-05-11] MEDS: Omnipaque 350 MG/ML 50 ML BTL PO (08:41)
[2021-05-11 09:16] LABS: Abs Immature Grans 0.02 10^3/uL (0.0-0.06); Absolute Basophil Count 0.02 10^3/uL (0.0-0.2); Absolute Eosinophil Count 0.13 10^3/uL (0.0-0.7); Absolute Lymphocyte Count 1.83 10^3/uL (1.2-3.4); Absolute Monocyte Count 0.62 10^3/uL (0.1-0.8); Absolute Neutrophil Count 5.35 10^3/uL (1.2-6.7); Basophils % 0.3; Eosinophils % 1.6; HCT 43.3 % (36.0-46.0); HGB 13.4 g/dL (11.2-15.7); Immature Grans % 0.3; MCH 27.9 pg (27.0-33.0); MCHC 30.9 % (32.0-36.0); MPV 10.3 fL (8.0-11.0); Monocytes % 7.8; Nucleated RBC 0 %; Platelet Count 219 10^3/uL (130-400); RBC 4.81 10^6/uL (3.93-5.22); RDW 14.6 % (11.7-14.6); RDW-SD 48.5 fL; WBC 7.97 10^3/uL (4.4-10.8)
[2021-05-11] MEDS: Normal Saline - Diluent 50 ML VIAL IV (09:30)
[2021-05-11] MEDS: Omnipaque 350 MG/ML 100 ML BTL IJ (09:30)
[2021-05-11] MEDS: Normal Saline Flush 10 ML SYR IVP (09:31)
[2021-05-11 10:10] LABS: ALT 22 U/L (14-59); AST 15 U/L (15-37); Albumin 3.5 g/dL (3.4-5.0); Alkaline Phosphatase 68 U/L (46-116); Anion Gap 6.4 mmol/L (3-11); BUN 23 mg/dL (7-18); Bilirubin, Total 0.2 mg/dL (0.2-1.0); CO2 31.6 mmol/L (21.0-32.0); CREATININE 1.1 mg/dL (0.55-1.02); Chloride 106 mmol/L (98-107); Estimated GFR 47.91 (mL/min/1.73m2); Glucose 100 mg/dL (74-106); Potassium 3.8 mmol/L (3.5-5.1); Sodium 144 mmol/L (136-145); Total Protein 7.8 g/dL (6.4-8.2)
[2021-05-11 17:17] LABS: CEA <2.0 ng/mL (See Note)
== END 2021-05-11 01:55 ==
PROVIDERS: PCP Family Medicine; Visit Provider Internal Medicine Hematology & Oncology
DX: C18.2 Malignant neoplasm of ascending colon (principal); E27.9 Disorder of adrenal gland, unspecified; R91.8 Other nonspecific abnormal finding of lung field; Z90.49 Acquired absence of other specified parts of digestive tract
CPT/HCPCS: 74177; 80053; 71260; 82378; 85025; J3490; Q9967

== ENCOUNTER 2021-06-02 16:46 | Emergency (ER) | payer MEDICARE, SELFPAY ==
[2021-06-02 16:51] VITALS: BP 168/87; PULSE 79; RESP 17; TEMP 37.1; O2SAT 93
--- NOTE | 2021-06-02 16:52 | ED.GENADUL_ITS ---
Discharge Plan Disposition Patient Disposition: HOME Condition: Stable Discharge Details Clinical Impression: Muscle strain of right upper arm, Contusion of arm, right Primary Care Provider: Poly Copeland ED Provider: Syl Durbin Home Meds and New Rx's Prescriptions: New methocarbamol 500 mg tablet 500 mg PO Q6H PRN (Reason: muscle spasm) Qty: 14 RF: 0 Continued [id number] 600 mg calcium- 800 unit-50 mg tablet 1 tab PO DAILY RF: 0 cholecalciferol (vitamin D3) 1,000 unit capsule 1,000 unit PO DAILY RF: 0 furosemide 40 mg tablet 40 mg PO DAILY Qty: 90 RF: 5 Trelegy Ellipta 100-62.5-25 mcg blister with device 1 inh inhalation DAILY Qty: 60 RF: 4 omeprazole 20 mg capsule,delayed release(DR/EC) 20 mg PO DAILY Qty: 90 RF: 12 triamcinolone acetonide 0.1 % cream 1 applic TP BID PRNRF: 0 aspirin [Aspirin Low-Strength] 81 MG tablet,chewable 81 mg PO DAILY RF: 0 polyethylene glycol 3350 [Miralax] 527 GM powder 17 g PO .QOD PRNQty: 3 RF: 4 potassium chloride 20 mEq tablet,ER particles/crystals 20 meq PO DAILY Qty: 90 RF: 4 Toviaz 8 mg tablet extended release 24 hr 8 mg PO DAILY Qty: 90 RF: 5 multivitamin [Daily Multiple] 1 EACH tablet 1 ea PO DAILY RF: 0 Discharge Instructions Instructions: Muscle Strain (ED), Contusion in Adults (ED) Additional Instructions: Apply ice to the affected area several times daily for 20 minutes at a time. Alternate tylenol and motrin as needed and directed for pain. Take the muscle relaxer and pain medication as needed and directed for pain not relieved with Tylenol or Motrin. Follow-up with your primary care doctor in 1 week and for referral to orthopedics if your symptoms do not improve or worsen. Return to the emergency department with any worsening or new concerning symptoms. Referrals: Andres Cast MD [ [facility] STAFF PHYSICIAN] - Discharge Data Discharge Date/Time-TO BE ENTERED AT DEPARTURE: 06/02/21 19:50 Discharge Physician: Syl Durbin Medical Decision Making 81-year-old female presents with right upper arm pain after slip and fall hitting her right arm on a table at home prior to arrival. She has tenderness at right upper arm with pain with range of motion. No tenderness or pain with range of motion to remainder of upper extremity. She is neurovascular intact. No obvious deformity. We will give a dose of oxycodone refer for x-rays. Right humerus x-ray negative. On reassessment, patient is now complaining of pain in her right elbow. She now has tenderness to palpation at the right radial head. She had no relief with oxycodone. Will obtain right elbow x-ray and give another dose of oxycodone and Valium. Right elbow x-ray negative. Patient reassessed and she had pain relief with the Valium. She feels that the sling causes her more pain. Her mechanism of injury with direct blunt injury of her right upper arm onto the table indicates most likely contusion but she is presenting with strain versus sprain as the x-rays are negative. She appears mainly to have pain in her right upper arm with abduction of her upper extremity and now with pain in her elbow with range of motion. She is advised to apply ice several times daily. We will give her sling to go. We will send a prescription for muscle relaxers electronically to her pharmacy. Advised to call her PCP tomorrow for follow-up. She was advised to follow-up with orthopedics if her symptoms do not improve or worsen. Usual and customary return precautions given prior to discharge. Medical Records Medical records reviewed: Yes I reviewed the patient's medical records. Imaging Data Radiologic Study: Radiologist's impression: XR Right Humerus Exam date and time: 06/02/2021 5:06 PM Age: 81 years old Clinical indication: Other: S/P fall , R/O acute FX TECHNIQUE: Imaging protocol: XR Right humerus. Views: 2 or more views. COMPARISON: NM WHOLE BODY BONE SCAN 08/15/2018 12:17 PM FINDINGS: Bones/joints: No fracture. No malalignment. Mild degenerative changes in the AC joint and glenohumeral joint. Soft tissues: Soft tissues are unremarkable. IMPRESSION: No acute osseous abnormality XR Right Elbow Exam date and time: 06/02/2021 6:50 PM Age: 81 years old Clinical indication: Injury or trauma; Blunt trauma (contusions or hematomas); Elbow; Right; Injury date: 06/02/21; Injury details: Fall, arm pain TECHNIQUE: Imaging protocol: XR Right elbow. Views: 3 or more views. COMPARISON: NM WHOLE BODY BONE SCAN 08/15/2018 12:17 PM FINDINGS: Bones/joints: No fracture. No malalignment. Question small joint effusion. Soft tissues: Normal. IMPRESSION: No evidence of acute osseous injury HPI General Mode of arrival: ambulatory . Date/Time Provider Initiated Documentation: 06/02/21 16:47 . Limitations to Documentation: no limitations . Information obtained by: patient . HPI Narrative: Patient is a 81-year-old female who presents with right upper arm pain after slip and fall at home prior to arrival. Patient states she was busy during multiple tasks at home when she lost her balance and turned and hit her right upper arm on the table. She is complaining of pain mainly in her right upper arm. She took 2 Tylenol prior to arrival without relief. She denies any head injury including head injury, neck pain or any other extremity injury. Related Data Home Medications Medication Instructions Recorded Confirmed aspirin [Aspirin Low-Strength] 81 mg PO DAILY tab-cap 11/05/15 06/02/21 polyethylene glycol 3350 [Miralax] 17 g PO .QOD PRN #3 12/16/15 06/02/21 multivitamin [Daily Multiple] 1 ea PO DAILY 04/07/17 06/02/21 calcium 600 mg-D3 800 unit-mag11 1 tab PO DAILY 01/15/19 06/02/21 50 vw-lkui-fntiun-bandar-s.borat tablet cholecalciferol (vitamin D3) 25 1,000 unit PO DAILY 07/26/19 06/02/21 mcg (1,000 unit) capsule triamcinolone acetonide 0.1 % 1 applic TP BID PRN gm 11/19/19 06/02/21 topical cream potassium chloride 20 mEq 20 meq PO DAILY #90 tab 02/10/21 06/02/21 tablet,extended release(part/cryst) furosemide 40 mg tablet 40 mg PO DAILY #90 tab 02/26/21 06/02/21 Toviaz 8 mg tablet,extended release 8 mg PO DAILY #90 tab NS 03/05/21 06/02/21 fluticasone fur. 100 mcg-umeclid 1 inh INHALATION DAILY #60 ea 04/07/21 06/02/21 62.5 mcg-vilant 25 mcg inhalat.powder omeprazole 20 mg capsule,delayed 20 mg PO DAILY #90 tab-cap 04/07/21 06/02/21 release methocarbamol 500 mg PO Q6H PRN #14 tab 06/02/21 Previous Rx's Medication Instructions Recorded potassium chloride 20 mEq 20 meq PO DAILY #90 tab 02/10/21 tablet,extended release(part/cryst) furosemide 40 mg tablet 40 mg PO DAILY #90 tab 02/26/21 Toviaz 8 mg tablet,extended release 8 mg PO DAILY #90 tab NS 03/05/21 fluticasone fur. 100 mcg-umeclid 1 inh INHALATION DAILY #60 ea 04/07/21 62.5 mcg-vilant 25 mcg inhalat.powder omeprazole 20 mg capsule,delayed 20 mg PO DAILY #90 tab-cap 04/07/21 release methocarbamol 500 mg PO Q6H PRN #14 tab 06/02/21 Allergies Allergy/AdvReac Type Severity Reaction Status Date / Time Sulfa (Sulfonamide Allergy Intermediate BURNING Verified 06/02/21 16:54 Antibiotics) TONGUE letrozole AdvReac Intermediate Insomnia, Verified 06/02/21 16:54 depression General LALA: 4 Review of Systems All systems reviewed & are unremarkable except as noted in HPI and below Constitutional Constitutional: Reports as per HPI, Denies chills and Denies fever(s) Eyes Eyes: Denies blurry vision ENT Ears, Nose, Mouth, and Throat: Denies dizziness, Denies sore throat and Denies throat swelling Cardiovascular Cardiovascular: Denies chest pain and Denies dyspnea Respiratory Respiratory: Denies cough and Denies dyspnea Gastrointestinal Gastrointestinal: Denies abdominal pain, Denies diarrhea and Denies vomiting Genitourinary Genitourinary: Denies hematuria and Denies dysuria Musculoskeletal Musculoskeletal: Denies back pain, Denies numbness and Reports other (R upper arm pain) Integumentary/Breasts Skin/Breast: Denies lesions and Denies rash Neurologic Neurologic: Denies dizziness, Denies localized weakness and Denies numbness Allergic/Immunologic Allergic/Immunologic: Denies throat swelling [facility] Medical History Anticoagulated on warfarin W/U neg. Asthma Breast cancer Carpal tunnel syndrome Cholecystitis 10/29/09 unspecified Cholecystitis (10/29/09) Chronic obstructive lung disease, type A (03/26/13) Colon cancer Colon polyp COPD (chronic obstructive pulmonary disease) Disorder of vitamin B12 Diverticulosis Diverticulosis of colon without diverticulitis (11/19/08) As found during colonoscopy on 11/06/08 Essential hypertension (10/05/13) Gastroesophageal reflux disease without esophagitis Hiatal hernia (09/02/08) Hypertension Impacted cerumen of right ear 01/15/15 Impacted cerumen of right ear (01/15/15) Malignant neoplasm of female breast (12/21/08) left mastectomy Metastatic colon cancer in female (01/23/17) 01/23/2017; 11/06 L.N. + ; S/P RIGHT HEMICOLECTOMY Obesity Osteoarthritis of right knee (10/29/15) 10/29/15; END STAGE RIGHT KNEE Renal insufficiency, mild Sensory hearing loss, bilateral (01/15/15) Shortness of breath w/u neg Smoker 1PPD/47 years--quit 10/24/2002 Smoker Tinnitus (01/15/15) Urinary, incontinence, stress female (05/04/11) Vitamin D deficiency Vitamin D deficiency disease (08/12/08) Surgical History Arthroplasty 10/29/15; RIGHT KNEE; DR. FORBES Breast, Mastectomy Cholecystectomy (~10/2009) Colectomy right hemicolectomy. Colonoscopy - MAC (04/12/17) Colonoscopy - MAC (05/12/18) H/O mastectomy Hemicolectomy (01/23/17) RIGHT History of mastectomy Hysterectomy, Laproscopic (~1978) Replacement of total knee joint (~2002) LEFT S/P laparoscopic hysterectomy S/P left mastectomy 12/10/14 S/P total knee replacement left-2002; right-10/2005 Status post cholecystectomy Status post laparoscopic hysterectomy Status post left mastectomy (12/10/14) Status post total knee replacement Family History Mother , 71 Heart disease Colon cancer Father , 75 Essential hypertension Heart disease Alcohol abuse Maternal Grandfather , 82 Essential hypertension Heart disease Stroke Paternal Grandfather , 62 Heart disease Maternal Grandmother , 88 Essential hypertension Breast cancer Paternal Grandmother , 98 Diabetes Essential hypertension Stroke Sister Asthma Sister No problems noted. Sister No problems noted. Son No problems noted. Son No problems noted. Son No problems noted. 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 Pets and animals: No Sexually active: No Do you think of yourself as: straight/heterosexual Current gender identity: female What is your relationship status?: How often do you talk on the phone with friends or family?: three or more times per week How often do you get together with friends or relatives?: three or more times per week How often do you attend presybeterian or baptist services?: decline to answer Do you belong to any clubs or organized social groups?: no Panel score (0-1 are the most socially isolated patients): 1 What type of physical activity do you participate in: other Details: Treadmill Duration: 15-30 minutes/day Frequency: daily Tabatha/Lutheran: Religious Special tabatha needs: No Seatbelt use: always Helmet use: No Drive intox or ride w/intox local hazmat driver: No Do you feel safe at home: Yes Do you feel safe in your relationship?: Yes Exam Const General: cooperative and no acute distress HENMT Head: normal to inspection Mouth: oral mucosae normal Eyes General: appearance normal, both eyes and all related structures Neck Neck: normal visual inspection Resp Effort & Inspection: normal respiratory effort and able to speak in complete sentences Cardio Rate: regular rate Skin General skin exam: no rashes or lesions noted Neuro General: patient alert, patient awake and patient oriented x3 Motor: muscle tone normal throughout Extrem Shoulder/upper arm images: 1. Tenderness to palpation to right proximal, mid and distal upper arm. There is no obvious deformity noted. No open wounds. Pain in right upper arm reprod ucible with movement and range of motion at right wrist and elbow. Other: Right radial and ulnar pulses intact. Psych Appearance: grossly normal Affect: normal affect
--- NOTE | 2021-06-02 17:00 | DI.RAD_ITS ---
Exam(s) XR HUMERUS RT EXAM: XR HUMERUS RT CLINICAL HISTORY: s/p fall, r/o acute fx. TECHNIQUE: 2D digital imaging was performed. COMPARISON: No exams were available for comparison FINDINGS: BONES: No acute fracture is present. No bony destructive lesion is seen. Visualized portion of elbow and shoulder joints are unremarkable. Degenerative changes are noted at the AC joint and glenohumera l joint. SOFT TISSUE: Normal. IMPRESSION: No acute abnormality. DATA REPOSITORY: RADIATION DOSE DELIVERED:
[2021-06-02] MEDS: oxyCODONE 5 MG TAB PO ×2 (17:20→19:01)
--- NOTE | 2021-06-02 18:00 | DI.VRAD_ITS ---
PROCEDURE INFORMATION: Exam: XR Right Humerus Exam date and time: 06/02/2021 5:06 PM Age: 81 years old Clinical indication: Other: S/P fall , R/O acute FX TECHNIQUE: Imaging protocol: XR Right humerus. Views: 2 or more views. COMPARISON: MD WHOLE BODY BONE SCAN 08/15/2018 12:17 PM FINDINGS: Bones/joints: No fracture. No malalignment. Mild degenerative changes in the AC joint and glenohumeral joint. Soft tissues: Soft tissues are unremarkable. IMPRESSION: No acute osseous abnormality Dictated and Authenticated by: Carlito Cuadra MD. Ordering:KAVON Streeter MD
--- NOTE | 2021-06-02 18:45 | DI.RAD_ITS ---
Exam(s) XR ELBOW RT COMPLETE EXAM: XR ELBOW RT COMPLETE CLINICAL HISTORY: s/p fall, r/o acute fx. TECHNIQUE: 2D digital imaging was performed. COMPARISON: No exams were available for comparison FINDINGS: BONES: No acute fracture is present. No bony destructive lesion is seen. Spurring at the epicondyles . JOINTS: The elbow is normally aligned. A small joint effusion is questioned. SOFT TISSUE: Normal. IMPRESSION: Question of a small joint effusion. No evidence of fracture.. DATA REPOSITORY: RADIATION DOSE DELIVERED:
[2021-06-02] MEDS: diazePAM 5 MG TAB PO (19:01)
--- NOTE | 2021-06-02 19:19 | DI.VRAD_ITS ---
PROCEDURE INFORMATION: Exam: XR Right Elbow Exam date and time: 06/02/2021 6:50 PM Age: 81 years old Clinical indication: Injury or trauma; Blunt trauma (contusions or hematomas); Elbow; Right; Injury date: 06/02/21; Injury details: Fall, arm pain TECHNIQUE: Imaging protocol: XR Right elbow. Views: 3 or more views. COMPARISON: NM WHOLE BODY BONE SCAN 08/15/2018 12:17 PM FINDINGS: Bones/joints: No fracture. No malalignment. Question small joint effusion. Soft tissues: Normal. IMPRESSION: No evidence of acute osseous injury Dictated and Authenticated by: Carlito Cuadra MD. Ordering:KAVON Streeter MD
[2021-06-02] MEDS: diazePAM 5 MG TAB 10 MG PO (19:49)
== END 2021-06-02 19:50 | disposition home or self-care (01) ==
PROVIDERS: Emergency Provider Physician Assistant; PCP Family Medicine
DX: S46.811A Strain of other muscles, fascia and tendons at shoulder and upper arm level, right arm, initial encounter (principal); S40.021A Contusion of right upper arm, initial encounter; W01.190A Fall on same level from slipping, tripping and stumbling with subsequent striking against furniture, initial encounter
CPT/HCPCS: 99284; 73060; 73080; 99283

== ENCOUNTER 2021-11-06 04:16 | Outpatient (CLI) | payer MEDICARE, SELFPAY ==
[2021-11-06 13:48] LABS: Abs Immature Grans 0.02 10^3/uL (0.0-0.06); Absolute Basophil Count 0.02 10^3/uL (0.0-0.2); Absolute Eosinophil Count 0.12 10^3/uL (0.0-0.7); Absolute Lymphocyte Count 0.87 10^3/uL (1.2-3.4); Absolute Monocyte Count 0.52 10^3/uL (0.1-0.8); Absolute Neutrophil Count 5.78 10^3/uL (1.2-6.7); Basophils % 0.3; Eosinophils % 1.6; HCT 43.9 % (36.0-46.0); HGB 13.4 g/dL (11.2-15.7); Immature Grans % 0.3; Lymphocytes % 11.9; MCHC 30.5 % (32.0-36.0); MCV 91.6 fL (80-95); MPV 9.3 fL (8.0-11.0); Monocytes % 7.1; Neutrophils % 78.8; Nucleated RBC 0 %; Platelet Count 207 10^3/uL (130-400); RBC 4.79 10^6/uL (3.93-5.22); RDW 13.8 % (11.7-14.6); RDW-SD 46.9 fL; WBC 7.33 10^3/uL (4.4-10.8)
[2021-11-06 15:11] LABS: ALT 22 U/L (14-59); AST 16 U/L (15-37); Albumin 3.6 g/dL (3.4-5.0); Alkaline Phosphatase 84 U/L (46-116); Anion Gap 10.3 mmol/L (3-11); BUN 19 mg/dL (7-18); Bilirubin, Total 0.3 mg/dL (0.2-1.0); CO2 25.7 mmol/L (21.0-32.0); CREATININE 1.3 mg/dL (0.55-1.02); Calcium 8.8 mg/dL (8.5-10.1); Chloride 103 mmol/L (98-107); Estimated GFR 39.51 (mL/min/1.73m2); Glucose 106 mg/dL (74-106); Potassium 4.1 mmol/L (3.5-5.1); Sodium 139 mmol/L (136-145); Total Protein 7.2 g/dL (6.4-8.2)
[2021-11-06 22:46] LABS: CEA 1.1 ng/mL (See Note)
== END 2021-11-06 04:17 | disposition home or self-care (01) ==
LOC: LBO 04:16
PROVIDERS: PCP Family Medicine; Visit Provider Internal Medicine Hematology & Oncology
DX: C18.2 Malignant neoplasm of ascending colon (principal)
CPT/HCPCS: 36415; 80053; 82378; 85025

== ENCOUNTER → 2021-11-26 11:24 | Outpatient (BNVA) | payer MEDICARE, SELFPAY | PROVIDERS: PCP Family Medicine; Referring Provider Family Medicine; Visit Provider Physical Therapy Assistant | DX: Z12.11 Encounter for screening for malignant neoplasm of colon (principal); Z85.038 Personal history of other malignant neoplasm of large intestine; Z80.0 Family history of malignant neoplasm of digestive organs; J44.9 Chronic obstructive pulmonary disease, unspecified ==

== ENCOUNTER 2021-12-28 04:06 | Outpatient (CLI) | payer MEDICARE, SELFPAY ==
[2021-12-28 12:47] LABS: Source Nasal/Nares
[2021-12-28 16:04] LABS: COVID-19 PCR Negative (Negative)
== END 2021-12-28 04:07 | disposition home or self-care (01) ==
LOC: LBO 04:06
PROVIDERS: PCP Family Medicine; Visit Provider Surgery
DX: Z20.822 Contact with and (suspected) exposure to COVID-19 (principal); Z01.818 Encounter for other preprocedural examination
CPT/HCPCS: 87635; U0005

== ENCOUNTER 2021-12-30 09:44 | Day surgery (SDC) | payer MEDICARE, SELFPAY ==
--- NOTE | 2021-12-30 06:55 | HPE_ITS ---
Assessment and Plan Assessment and plan (1) Screening for colon cancer: Status: Acute Assessment and plan: The patient is here for Colonoscopy pre-op. Her last screening was in 2018, which was unremarkable. Recommended 3 yr f/u secondary to personal history of colon cancer.? She reports a family history of colon cancer in her mother in her late 60s. She has not had any bowel habit changes. -Discussed colonoscopy bowel prep as well as the procedure. Discussed possible complications of the procedure to include bleeding, pain, perforation, missed small lesion/polyp, sore throat, aspiration and adverse reaction to the medications. Questions were answered to patient?s satisfaction. No guarantees were implied or given.? P// Colonoscopy under sedation. History of Present Illness Narrative: 81 y/o female with history of colon cancer (s/p right hemicolectomy in 2017; she was also treated with Chemotherapy), GERD, obesity and COPD presents for colonoscopy screening pre-op. Her last screening was in 2018, which was unremarkable. Recommended 3 yr f/u secondary to personal history of colon cancer.? She reports a family history of colon cancer in her mother in her late 60s. She denies any changes in bowel habits including black tarry stools, abdominal pain, diarrhea or constipation.? She describes intermittent bloody stools, which she relates to hemorrhoids. She denies constitutional symptoms. Denies use of marijuana or any other recreational or illegal drugs. She denies chest pain, palpitations, dyspnea or dyspnea with exertion. She states that she does have wheezing, which improves with use of her inhalers. She denies prior history or family history of adverse reactions or complications with anesthesia. The patient denies any history of stroke, SD, seizures, bleeding or clotting disorders. She has metal implanted in kiara. knees. Review of Systems Cardiovascular Cardiovascular: Denies chest pain, Denies chest pain at rest, Denies irregular heart rhythm, Denies palpitations and Denies dyspnea Respiratory Respiratory: Denies cough and Denies dyspnea Gastrointestinal Gastrointestinal: Reports as per HPI Endocrine Endocrine: Denies palpitations PFSH All Active Problems Essential hypertension (Acute 10/05/13) Screening for colon cancer (Acute) SOB (shortness of breath) (Acute) Ascending aorta dilatation (Acute) 3.7 cm on 11/2019 Obesity (Chronic) Gastroesophageal reflux disease without esophagitis (Chronic) Chronic obstructive lung disease, type A (Chronic 03/26/13) Medical History Anticoagulated on warfarin W/U neg. Asthma Breast cancer Carpal tunnel syndrome Cholecystitis 10/29/09 unspecified Colon polyp Contusion of arm, right Disorder of vitamin B12 Diverticulosis of colon without diverticulitis (11/19/08) As found during colonoscopy on 11/06/08 Edema Hiatal hernia (09/02/08) Impacted cerumen of right ear 01/15/15 Malignant neoplasm of female breast (12/21/08) left mastectomy Metastatic colon cancer in female (01/23/17) 01/23/2017; 11/06 L.N. + ; S/P RIGHT HEMICOLECTOMY Muscle strain of right upper arm Osteoarthritis of right knee (10/29/15) 10/29/15; END STAGE RIGHT KNEE Renal insufficiency, mild Sensory hearing loss, bilateral (01/15/15) Smoker 1PPD/47 years--quit 10/24/2002 Tinnitus (01/15/15) Ulnar neuropathy Urinary, incontinence, stress female (05/04/11) Vitamin D deficiency disease (08/12/08) Surgical History Arthroplasty 10/29/15; RIGHT KNEE; DR. FORBES Breast, Mastectomy Cholecystectomy (~10/2009) Colonoscopy - MAC (04/12/17) Colonoscopy - MAC (05/12/18) Hemicolectomy (01/23/17) RIGHT Hysterectomy, Laproscopic (~1978) S/P laparoscopic hysterectomy S/P total knee replacement left-2002; right-10/2005 Status post cholecystectomy Status post laparoscopic hysterectomy Status post left mastectomy (12/10/14) Family History Mother , 71 Heart disease Colon cancer Father , 75 Essential hypertension Heart disease Alcohol abuse Maternal Grandfather , 82 Essential hypertension Heart disease Stroke Paternal Grandfather , 62 Heart disease Maternal Grandmother , 88 Essential hypertension Breast cancer Paternal Grandmother , 98 Diabetes Essential hypertension Stroke Sister Asthma Sister No problems noted. Sister No problems noted. Son No problems noted. Son No problems noted. Son No problems noted. 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 Pets and animals: No Sexually active: No Do you think of yourself as: straight/heterosexual Current gender identity: female What is your relationship status?: How often do you talk on the phone with friends or family?: three or more times per week How often do you get together with friends or relatives?: three or more times per week How often do you attend christian or orthodoxy services?: decline to answer Do you belong to any clubs or organized social groups?: no Panel score (0-1 are the most socially isolated patients): 1 What type of physical activity do you participate in: other Details: Treadmill Duration: 15-30 minutes/day Frequency: daily Tabatha/Episcopalian: Jew Special tabatha needs: No Seatbelt use: always Helmet use: No Drive intox or ride w/intox airport shuttle driver: No Do you feel safe at home: Yes Do you feel safe in your relationship?: Yes Meds Allergies and Home Medications Allergies Allergy/AdvReac Type Severity Reaction Status Date / Time Sulfa (Sulfonamide Allergy Intermediate BURNING Verified 12/30/21 10:11 Antibiotics) TONGUE letrozole AdvReac Intermediate Insomnia, Verified 12/30/21 10:11 depression Home Medications Medication Instructions Recorded Confirmed Type aspirin 81 mg chewable tablet 81 mg PO DAILY tab-cap 11/05/15 12/30/21 History (Aspirin Low-Strength) polyethylene glycol 3350 17 17 g PO .QOD PRN #3 12/16/15 12/30/21 History gram/dose oral powder (Miralax) multivitamin (Daily Multiple) 1 ea PO DAILY 04/07/17 12/30/21 History calcium 600 mg-D3 800 unit-mag11 1 tab PO DAILY 01/15/19 12/30/21 History 50 sv-cyai-iajocd-bandar-s.borat tablet cholecalciferol (vitamin D3) 25 1,000 unit PO DAILY 07/26/19 12/30/21 History mcg (1,000 unit) capsule triamcinolone acetonide 0.1 % 1 applic TP BID PRN gm 11/19/19 12/29/21 History topical cream bisacodyl 5 mg tablet,delayed 5 mg PO ONCE #4 tab 11/26/21 12/30/21 Rx release (Dulcolax (bisacodyl)) polyethylene glycol 3350 17 17 g PO ONCE #238 g 11/26/21 12/30/21 Rx gram/dose oral powder fluticasone fur. 100 mcg-umeclid 1 inh INHALATION DAILY #180 ea 12/14/21 12/29/21 Rx 62.5 mcg-vilant 25 mcg inhalat.powder (Trelegy Ellipta) Toviaz 8 mg tablet,extended 8 mg PO DAILY #90 tab NS 12/15/21 12/30/21 Rx release (fesoterodine) furosemide 40 mg tablet 40 mg PO DAILY #90 tab 12/15/21 12/30/21 Rx omeprazole 20 mg capsule,delayed 20 mg PO DAILY #90 tab-cap 12/15/21 12/30/21 Rx release potassium chloride 20 mEq 20 meq PO DAILY #90 tab 12/15/21 12/30/21 Rx tablet,extended release(part/cryst) albuterol sulfate 90 mcg/actuation 2 puff INHALATION PRN PRN 12/30/21 12/30/21 History aerosol inhaler Exam Const General: cooperative, comfortable and no acute distress Resp Effort & Inspection: normal respiratory effort Auscultation: clear to auscultation bilaterally Cardio Rate: regular rate Rhythm: regular rhythm Heart Sounds: no gallops, no murmurs and no rubs
--- NOTE | 2021-12-30 06:58 | COLE_ITS ---
Colonoscopy Report Date of procedure: 12/30/21 Pre-op diagnosis general: Colon cancer screening and personal Hx of colon cancer Post-op diagnosis procedure note: same (polyps) Procedure: Colonoscopy with polypectomy Surgeon: Oneyda Alves Anesthesia Type: General:No Airway Estimated blood loss (mL): 3 Pathology: other (transverse polyp and rectal polyp) Complications: None Disposition: same day Indications: The patient is here for Colonoscopy pre-op. Her last screening was in 2018, which was unremarkable. Recommended 3 yr f/u secondary to personal history of colon cancer.? She reports a family history of colon cancer in her mother in her late 60s. She has not had any bowel habit changes. -Discussed colonoscopy bowel prep as well as the procedure. Discussed possible complications of the procedure to include bleeding, pain, perforation, missed small lesion/polyp, sore throat, aspiration and adverse reaction to the medications. Questions were answered to patient?s satisfaction. No guarantees were implied or given.? P// Colonoscopy under sedation. Prep: Miralax/Dulcolax Procedure Start Time: 12:35 Procedure End Time: 13:05 Findings: 2 small sessile polyps Procedure Description: After informed consent was obtained the patient was taken to the procedure room and placed in a left decubitous position. Monitors were applied and a time out was done. The patients name, date of , procedure, allergies to medications and metal in their body was reviewed. The patient was then sedated. Once sedated and comfortable a rectal exam was done. External exam was normal. Internal exam revealed a normal sphincter tone and no palpable masses. The scope was then introduced and retro-flexed. Grade 1 internal hemorrhoids were identified on retro-flexion. No polyps or masses were identified on retro- flexion. The scope was then advanced to the cecum with difficulty due to severe sigmoid diverticulosis. Theanastamosis was identified. The prep was adequate. The scope was then slowly retracted over 6 minutes back into the rectum. Polyps were removed with cold forceps in the transverse colon and rectum. There was severe sigmoid diverticulosis noted. The scope was removed and the patient was woken up and taken back to Same day surgery in stable condition. The patient tolerated the procedure well and there were no immediate complications. Follow up: Follow up will be as needed
--- NOTE | 2021-12-30 07:03 | W.PM.DSUDISC ---
Discharge Plan Disposition Patient Disposition: HOME Condition: Good Discharge Details Reason For Visit: Colonoscopy Attending Provider: Oneyda Alves Primary Care Provider: Poly Copeland Home Meds and New Rx's Prescriptions: Continued [id number] 600 mg calcium- 800 unit-50 mg tablet 1 tab PO DAILY 0RF cholecalciferol (vitamin D3) 1,000 unit capsule 1,000 unit PO DAILY 0RF furosemide 40 mg tablet 40 mg PO DAILY Qty: 90 5RF omeprazole 20 mg capsule,delayed release(DR/EC) 20 mg PO DAILY Qty: 90 12RF potassium chloride 20 mEq tablet,ER particles/crystals 20 meq PO DAILY Qty: 90 4RF Toviaz 8 mg tablet extended release 24 hr 8 mg PO DAILY Qty: 90 5RF triamcinolone acetonide 0.1 % cream 1 applic TP BID PRN0RF Rx Instructions: apply to back and chin aspirin [Aspirin Low-Strength] 81 MG tablet,chewable 81 mg PO DAILY 0RF polyethylene glycol 3350 [Miralax] 527 GM powder 17 g PO .QOD PRNQty: 3 4RF Trelegy Ellipta 100-62.5-25 mcg blister with device 1 inh inhalation DAILY Qty: 180 4RF Rx Instructions: please dispense 3 months albuterol sulfate 90 mcg/actuation HFA aerosol inhaler 2 puff INHALATION PRN PRN0RF Label Comments: INHALE TWO PUFFS BY MOUTH FOUR TIMES A DAY NEEDED FOR BRONCHOSPASM multivitamin [Daily Multiple] 1 EACH tablet 1 ea PO DAILY 0RF Discontinued bisacodyl [Dulcolax (bisacodyl)] 5 mg tablet,delayed release (DR/EC) 5 mg PO ONCE Qty: 4 0RF Rx Instructions: Take according to provider's instructions for colonoscopy prep. polyethylene glycol 3350 17 gram/dose powder 17 g PO ONCE Qty: 238 0RF Rx Instructions: To be taken as directed by prescriber's office for colonoscopy prep. Discharge Instructions Additional Instructions: Findings: 2 polyps Diverticulosis Follow up: as needed Please call if you develop: fevers >101.5 Nausea or Vomiting Abdominal pain that is not transient Rectal bleeding that is more then a tbsp A hard abdomen and inability to pass gas DAY SURGERY UNIT POST ENDOSCOPY INSTRUCTIONS Instructions for everyone who is given Anesthesia: For your safety, please do the following for the next 24 Hours: a. Do not drive or operate dangerous equipment b. Do not drink alcohol beverages or use any recreational drugs for the first 24 hours or while taking pain medications. The medications in your body may have a reaction that can be dangerous. c. Do not make any important decisions or sign any important papers 1. Generally there are no restrictions on your activity after a day or so has gone by, but you may feel a bit fatigued for a few days. 2. After you arrive home you may have a light meal and return to a normal diet as you can tolerate it without feeling sick to your stomach. 3. After surgery, you may feel pain or discomfort. This should be only transient, but if it persists please contact your doctor. 4. If there are any questions regarding the findings of your procedure, please feel free to contact your doctor. 6. If you are unable to contact your doctor with a problem, contact the hospital at [phone]. 7. Continue all your regular medications unless directed otherwise. I understand the above instructions and have no questions. Signature of Patient or Responsible Adult Escort Date/Time Name of Responsible Adult Escort Signature of Nurse Date/Time Activity:: Activity as Tolerated Diet:: As Tolerated Discharge Orders Discharge Orders: Discharge Order (Routine); Ordered 12/30/21 Ordered By: Oneyda Alves DS: Diagnosis Discharge Diagnosis (1) Screening for colon cancer: Status: Acute
--- NOTE | 2021-12-30 08:15 | W.ANESPRE ---
General Info Date of Service Date Performed: 12/30/21 Height: 5 ft 3 in Weight: 96.672 kg Body Mass Index (BMI): 37.7 Surgical Procedure: Operation Date: 12/30/21 11:50 Proposed Procedure Side Surgeon p Colonoscopy Oneyda Alves MD Meds Allergies and Home Medications Allergies Allergy/AdvReac Type Severity Reaction Status Date / Time Sulfa (Sulfonamide Allergy Intermediate BURNING Verified 12/30/21 10:11 Antibiotics) TONGUE letrozole AdvReac Intermediate Insomnia, Verified 12/30/21 10:11 depression Home Medication Medication Instructions Recorded aspirin 81 mg chewable tablet 81 mg PO DAILY tab-cap 11/05/15 (Aspirin Low-Strength) polyethylene glycol 3350 17 17 g PO .QOD PRN #3 12/16/15 gram/dose oral powder (Miralax) multivitamin (Daily Multiple) 1 ea PO DAILY 04/07/17 calcium 600 mg-D3 800 unit-mag11 1 tab PO DAILY 01/15/19 50 qz-ekgz-wecfxw-bandar-s.borat tablet cholecalciferol (vitamin D3) 25 1,000 unit PO DAILY 07/26/19 mcg (1,000 unit) capsule triamcinolone acetonide 0.1 % 1 applic TP BID PRN gm 11/19/19 topical cream bisacodyl 5 mg tablet,delayed 5 mg PO ONCE #4 tab 11/26/21 release (Dulcolax (bisacodyl)) polyethylene glycol 3350 17 17 g PO ONCE #238 g 11/26/21 gram/dose oral powder fluticasone fur. 100 mcg-umeclid 1 inh INHALATION DAILY #180 ea 12/14/21 62.5 mcg-vilant 25 mcg inhalat.powder (Trelegy Ellipta) Toviaz 8 mg tablet,extended 8 mg PO DAILY #90 tab NS 12/15/21 release (fesoterodine) furosemide 40 mg tablet 40 mg PO DAILY #90 tab 12/15/21 omeprazole 20 mg capsule,delayed 20 mg PO DAILY #90 tab-cap 12/15/21 release potassium chloride 20 mEq 20 meq PO DAILY #90 tab 12/15/21 tablet,extended release(part/cryst) albuterol sulfate 90 mcg/actuation 2 puff INHALATION PRN PRN 12/30/21 aerosol inhaler Current Visit Medications: Current Medications Generic Name Dose Route Start Last Admin Trade Name Freq PRN Reason Stop Dose Admin Hyoscyamine Sulfate 0.125 mg 12/30/21 07:04 Hyoscyamine 0.125 Mg Sl/Oral/Chew SL DIRECTED PRN Ringer's Solution 1,000 mls @ 80 mls/hr 12/30/21 06:00 IV 01/21/22 23:59 INFUSION [facility] IV Miscellaneous Supplies 1 each 12/30/21 06:00 Iv Access IV 01/21/22 23:59 DIRECTED JANET Ondansetron HCl 4 mg 12/30/21 07:04 Ondansetron 4 Mg/2 Ml Vial IVP Q4H PRN PRN Nausea / Vomiting Sodium Chloride 0 ml 12/30/21 06:00 Normal Saline Flush 10 Ml Syr IV 01/21/22 23:59 PRN PRN Sodium Chloride 0 ml 12/30/21 06:00 Normal Saline 10 Ml Vial IJ 01/21/22 23:59 DIRECTED PRN Sterile Water 0 ml 12/30/21 06:00 Water,Injection,Sterile 10 Ml Vial IJ 01/21/22 23:59 DIRECTED PRN PFSH Active Problems Active Problems: Problem Status Onset Code Essential hypertension 10/05/13 I10 Screening for colon cancer Z12.11 SOB (shortness of breath) R06.02 Ascending aorta dilatation I77.810 Obesity E66.9 Gastroesophageal reflux disease without esophagitis K21.9 Chronic obstructive lung disease, type A 03/26/13 J43.9 Medical History Medical History Anticoagulated on warfarin W/U neg. Asthma Breast cancer Carpal tunnel syndrome Cholecystitis 10/29/09 unspecified Colon polyp Contusion of arm, right Disorder of vitamin B12 Diverticulosis of colon without diverticulitis (11/19/08) As found during colonoscopy on 11/06/08 Edema Hiatal hernia (09/02/08) Impacted cerumen of right ear 01/15/15 Malignant neoplasm of female breast (12/21/08) left mastectomy Metastatic colon cancer in female (01/23/17) 01/23/2017; 11/06 L.N. + ; S/P RIGHT HEMICOLECTOMY Muscle strain of right upper arm Osteoarthritis of right knee (10/29/15) 10/29/15; END STAGE RIGHT KNEE Renal insufficiency, mild Sensory hearing loss, bilateral (01/15/15) Smoker 1PPD/47 years--quit 10/24/2002 Tinnitus (01/15/15) Ulnar neuropathy Urinary, incontinence, stress female (05/04/11) Vitamin D deficiency disease (08/12/08) Surgical History Surgical History Arthroplasty 10/29/15; RIGHT KNEE; DR. FORBES Breast, Mastectomy Cholecystectomy (~10/2009) Colonoscopy - MAC (04/12/17) Colonoscopy - MAC (05/12/18) Hemicolectomy (01/23/17) RIGHT Hysterectomy, Laproscopic (~1978) S/P laparoscopic hysterectomy S/P total knee replacement left-2002; right-10/2005 Status post cholecystectomy Status post laparoscopic hysterectomy Status post left mastectomy (12/10/14) Tobacco Smoking/Tobacco Use Status: Former Tobacco Use Second hand exposure: Yes Alcohol Alcohol Intake: never Substance Use Substance use: Never Substance use type: does not use Vital Signs and Lab Results Lab Results Blood Type / Crossmatch: No Data to Display Complete Blood Count: No Data to Display Complete Metabolic Panel: No Data to Display Liver Function Panel: No Data to Display Coagulation Panel: No Data to Display Cardiac Panel: No Data to Display Arterial Blood Gas: No Data to Display Venous Blood Gas: No Data to Display Pancreas Panel: No Data to Display Thyroid Panel: No Data to Display Infectious Disease: Coronavirus (COVID-19)(PCR) Negative (Negative) 12/28/21 09:24 12/28/21 Coronavirus 2019 Source Nasal/Nares 12/28/21 09:24 12/28/21 Blood Cultures: No Data to Display Toxicology Panel: No Data to Display Anesthesia Assessment and Plan Anesthesia History Personal History: No History of Anesthesia Complications Family History: No Family History of Anesthesia Complications Exercise Tolerance Exercise Tolerance: Metabolic Equivalents<4 Pertinent Negatives Pertinent Negatives: No Symptoms of GERD, No Major Cardiovascular Symptoms or Complaints, No Major Pulmonary Symptoms or Complaints and No History of CVA/TIA Cardiac & Pulmonary Exam Cardiac Exam: Normal S1/S2 Heart Sounds Pulmonary Exam: Clear Bilateral Breath Sounds Implantable Cardiac Device Does patient have a Pacemaker or an ICD?: No Airway Exam Known Difficult Airway: No Mallampati Class: 3 Mouth Opening: Narrow (< 3cm) Thyromental Distance: Less than 3 cm Neck Range of Motion: Full ROM Neck Circumference: Normal Teeth Condition: Removable Dentures/Plates Upper ASA Classification ASA Score: ASA 2 Emergency Case?: No NPO Status NPO Status: NPO Clears >2 hours, Solids >8 hours Anesthesia Plan Resuscitation Status: Full Code Anesthesia Technique: General Anesthesia Airway Planned: Natural Airway Monitors Used: Standard Monitors
[2021-12-30 10:17] VITALS: BP 154/67; PULSE 91; RESP 17; TEMP 36.4; O2SAT 94
[2021-12-30] MEDS: Lactated Ringers 1,000 ML 80 ML IV (10:50)
[2021-12-30 12:39] VITALS: BMI 37.7
--- NOTE | 2021-12-30 12:54 | BOWEL_PTH ---
PATIENT: Kelly Strickland LOC: [facility] U#:[id number] AGE/SX: 81/F ROOM: RE12/30/[address]: Oneyda Alves MD : [id number] BED: DIS: 12/30/2021 SPEC #: [id number] RECD: 12/30/21 13:16 STATUS: LANCE RE #: [id number] YUE: 12/30/21 12:[address]: Oneyda Alves DEPT: Surgical Specimen RECD BY: Naila Katz ENTERED: 12/30/21 13:17 SP TYPE: Bowel OTHR DR: Poly Copeland MD, DC Tissues: 1 - BIOPSY BOWEL 2 - BIOPSY BOWEL Procedures: GROSS AND MICRO LEVEL 4 Comments: [id number]
[2021-12-30 13:10] VITALS: BP 141/59; PULSE 77; RESP 16; TEMP 36; O2SAT 96
[2021-12-30 13:40] VITALS: BP 144/82; PULSE 73; RESP 16; TEMP 36.1; O2SAT 95
--- NOTE | 2021-12-30 15:31 | W.ANESPOSTOP ---
Postoperative Evaluation Date, Time and Location Date Performed: 12/30/21 Time Performed: 15:32 Patient Location: Day Surgery Unit Vital Signs Most Recent Imported Vital Signs: Most Recent Vital Signs Temp Pulse Resp BP Pulse Ox 36.1 C L 73 16 144/82 H 95 12/30/21 13:40 12/30/21 13:40 12/30/21 13:40 12/30/21 13:40 12/30/21 13:40 Pain Score Most Recent Pain Score: Most Recent Pain Score Pain Level 0 12/30/21 13:40 Assessment Mental Status: Awake (Alert & Oriented to Patient Baseline) Airway and Respiratory Function: Patent airway with normal (patient baseline) respiratory exam Cardiovascular Function: Hemodynamically Stable Hydration Status: Adequately Hydrated Nausea & Vomiting: No Nausea or Vomiting Pain: Pt. Denies Any Pain Peripheral Nerve Block: Patient did not receive a nerve block
== END 2021-12-30 14:00 | disposition home or self-care (01) ==
LOC: SUR 09:45
PROVIDERS: PCP Family Medicine; Visit Provider Surgery
PROC: 0DJD8ZZ Inspection of Lower Intestinal Tract, Via Natural or Artificial Opening Endoscopic (ICD-10-PCS; CPT 45378; principal; 2021-12-30 11:45)
DX: Z12.11 Encounter for screening for malignant neoplasm of colon (principal); Z80.0 Family history of malignant neoplasm of digestive organs; K63.5 Polyp of colon; Z85.038 Personal history of other malignant neoplasm of large intestine; J44.9 Chronic obstructive pulmonary disease, unspecified; K21.9 Gastro-esophageal reflux disease without esophagitis; Z98.0 Intestinal bypass and anastomosis status; K57.30 Diverticulosis of large intestine without perforation or abscess without bleeding; K62.1 Rectal polyp; K64.0 First degree hemorrhoids
CPT/HCPCS: 45380; 88305; J2001

== ENCOUNTER → 2022-02-01 13:22 | Outpatient (CLI) | payer MEDICARE, SELFPAY | PROVIDERS: PCP Family Medicine; Visit Provider Family Medicine ==

== ENCOUNTER → 2022-02-01 13:29 | Outpatient (CLI) | payer MEDICARE, SELFPAY ==
--- NOTE | 2022-02-01 11:00 | DI.RAD_ITS ---
Exam(s) XR HAND LT COMPLETE EXAM: XR HAND LT COMPLETE CLINICAL HISTORY: Contusion of Left Hand S60.222A. TECHNIQUE: 2D digital imaging was performed. Three views. COMPARISON: CR,XR XR HAND LT COMPLETE from 02/27/2021 FINDINGS: BONES: No acute fracture is present. No bony destructive lesion is seen. JOINTS: No dislocation present. Severe deep degenerative changes 1st CMC joint. Mild to moderate de generative changes of the interphalangeal joints. SOFT TISSUE: Dorsal soft tissue swelling over the metacarpal region.. No foreign body. IMPRESSION: Dorsal soft tissue swelling. No evidence of fracture. DATA REPOSITORY: RADIATION DOSE DELIVERED:
== END ==
PROVIDERS: PCP Family Medicine; Visit Provider Family Medicine
DX: S60.222A Contusion of left hand, initial encounter (principal); M18.12 Unilateral primary osteoarthritis of first carpometacarpal joint, left hand; M79.89 Other specified soft tissue disorders
CPT/HCPCS: 73130

== ENCOUNTER 2022-04-24 08:57 | Emergency (ER) | payer MEDICARE, SELFPAY ==
[2022-04-24 09:00] VITALS: BP 145/56; PULSE 94; RESP 16; TEMP 36.8; O2SAT 98
--- NOTE | 2022-04-24 09:18 | W.ED.GENAD ---
Discharge Plan Disposition Patient Disposition: HOME Condition: Stable Discharge Details Clinical Impression: Cellulitis, Tick bite Primary Care Provider: Poly Copeland ED Provider: Nicolas Scanlon Home Meds and New Rx's Prescriptions: New cephalexin 500 mg tablet 500 mg PO QID 7 Days Qty: 28 0RF Continued [id number]-vtc 600 mg calcium- 800 unit-50 mg tablet 1 tab PO DAILY cholecalciferol (vitamin D3) 1,000 unit capsule 1,000 unit PO DAILY furosemide 40 mg tablet 40 mg PO DAILY Qty: 90 5RF potassium chloride 20 mEq tablet,ER particles/crystals 20 meq PO DAILY Qty: 90 4RF Toviaz 8 mg tablet extended release 24 hr 8 mg PO DAILY Qty: 90 5RF triamcinolone acetonide 0.1 % cream 1 applic TP BID PRN Rx Instructions: apply to back and chin aspirin [Aspirin Low-Strength] 81 MG tablet,chewable 81 mg PO DAILY polyethylene glycol 3350 [Miralax] 527 GM powder 17 g PO .QOD PRNQty: 3 Trelegy Ellipta 100-62.5-25 mcg blister with device 1 inh inhalation DAILY Qty: 180 4RF Rx Instructions: please dispense 3 months omeprazole 20 mg capsule,delayed release(DR/EC) 20 mg PO DAILY Qty: 90 3RF albuterol sulfate 90 mcg/actuation HFA aerosol inhaler 2 puff INHALATION PRN PRN Label Comments: INHALE TWO PUFFS BY MOUTH FOUR TIMES A DAY NEEDED FOR BRONCHOSPASM multivitamin [Daily Multiple] 1 EACH tablet 1 ea PO DAILY Discharge Instructions Instructions: Cellulitis (ED), Tick Bite (ED) Additional Instructions: Continue to monitor your symptoms and if you have any significant worsening please return to the emergency department. Otherwise you should start having signs of improvement in the next 24 to 48 hours. If not improving by next week follow-up with your primary care provider for reassessment. We will contact you with the results of your send out test as these take a couple days to receive results. Referrals: Poly Copeland MD, [place] [Primary Care Provider] - Discharge Data Discharge Date/Time-TO BE ENTERED AT DEPARTURE: 04/24/22 09:31 Medical Decision Making Patient presenting to the emergency department for chief complaint of tick bite. Patient the tick was attached for less than 24 hours and was not engorged and was barelyattached. She stated that it came off with ease. Within the next 24 hours she started noticing worsening pain and discomfort and redness. Patient now complaining of having some chills and feeling somewhat ill physical exam is consistent with bite with surrounding erythema to the right calf. Physical exam is otherwise unremarkable. Given the short amount of attachment time, not engorged, not embedded, and symptoms starting shortly after I highly doubt Lyme disease or borne illness but physical exam findings of cellulitis infected bite. We will treat with Keflex and send tick panel but again have low suspicion of tickborne illness so will not treat prophylactically at this time. Due to patient's anxiety will send tick panel for further evaluation of symptoms. Patient encouraged to monitor symptoms and return for worsening or lack of improvement. After discussion of diagnosis and plan of care patient has no further needs, questions, or concerns and states clear understanding to return to the emergency department for any worsening symptoms. This documentation was generated using [employer] dictation system, please disregard any oddities of phrase or misspellings. HPI General Mode of arrival: ambulatory. Date/Time Provider Initiated Documentation: 04/24/22 09:06. Limitations to Documentation: no limitations. Information obtained by: patient and RN notes reviewed. History of Present Illness 82 year old F presents to the emergency department with the chief complaint of tick bite, described as similar to prior episodes, with intensity rated at 2. Quality is described as aching, and is localized to the back. Patient reports no radiation. Patient started experiencing this day(s) (4) and it has been constant. No relieving factors improve symptom(s), No exacerbating factors reported . Patient notes no other symptoms.. Patient did receive the following treatments prior to arrival, none Related Data Home Medications Medication Instructions Recorded Confirmed aspirin 81 mg chewable tablet 81 mg PO DAILY 11/05/15 04/24/22 (Aspirin Low-Strength) polyethylene glycol 3350 17 17 g PO .QOD PRN ##3 12/16/15 04/24/22 gram/dose oral powder (Miralax) multivitamin (Daily Multiple 1 ea PO DAILY 04/07/17 04/24/22 tablet) calcium 600 mg-D3 800 unit-mag11 1 tab PO DAILY 01/15/19 04/24/22 50 vb-iysb-yodwvj-bandar-s.borat tablet cholecalciferol (vitamin D3) 25 1,000 unit PO DAILY 07/26/19 04/24/22 mcg (1,000 unit) capsule triamcinolone acetonide 0.1 % 1 applic topical BID PRN 11/19/19 04/24/22 topical cream fluticasone fur. 100 mcg-umeclid 1 inh inhalation DAILY #180 ea 12/14/21 04/24/22 62.5 mcg-vilant 25 mcg inhalat.powder (Trelegy Ellipta) Toviaz 8 mg tablet,extended 8 mg PO DAILY #90 tabs 12/15/21 04/24/22 release (fesoterodine) furosemide 40 mg tablet 40 mg PO DAILY #90 tabs 12/15/21 04/24/22 potassium chloride 20 mEq 20 meq PO DAILY #90 tabs 12/15/21 04/24/22 tablet,extended release(part/cryst) albuterol sulfate 90 mcg/actuation 2 puff inhalation PRN PRN 12/30/21 04/24/22 aerosol inhaler omeprazole 20 mg capsule,delayed 20 mg PO DAILY #90 tab-caps 04/12/22 04/24/22 release cephalexin 500 mg tablet 500 mg PO QID 7 days #28 tabs 04/24/22 Previous Rx's Medication Instructions Recorded fluticasone fur. 100 mcg-umeclid 1 inh inhalation DAILY #180 ea 12/14/21 62.5 mcg-vilant 25 mcg inhalat.powder (Trelegy Ellipta) Toviaz 8 mg tablet,extended 8 mg PO DAILY #90 tabs 12/15/21 release (fesoterodine) furosemide 40 mg tablet 40 mg PO DAILY #90 tabs 12/15/21 potassium chloride 20 mEq 20 meq PO DAILY #90 tabs 12/15/21 tablet,extended release(part/cryst) omeprazole 20 mg capsule,delayed 20 mg PO DAILY #90 tab-caps 04/12/22 release cephalexin 500 mg tablet 500 mg PO QID 7 days #28 tabs 04/24/22 Allergies Allergy/AdvReac Type Severity Reaction Status Date / Time Sulfa (Sulfonamide Allergy Intermediate BURNING Verified 04/24/22 09:04 Antibiotics) TONGUE letrozole AdvReac Intermediate Insomnia, Verified 07/02/22 09:04 depression General Stated Complaint: Cellulitis LALA: 3 Review of Systems Constitutional Constitutional: Denies body ache(s), Reports chills, Denies fever(s), Denies headache(s) and Reports lethargy ENT Ears, Nose, Mouth, and Throat: Reports dizziness and Denies headache(s) Musculoskeletal Musculoskeletal: Denies myalgias, Denies arthralgias and Denies joint swelling Integumentary/Breasts Skin/Breast: Reports as per HPI, Denies erythema and Denies rash Neurologic Neurologic: Reports dizziness, Denies headache(s) and Denies paresthesias PFSH All Active Problems (Updated 04/24/22 @ 09:20 by Nicolas Scanlon NP) Cellulitis (Acute) Tick bite (Acute) Serrated adenoma of colon (Acute) Hyperplastic colon polyp (Acute) Essential hypertension (Acute 10/05/13) Screening for colon cancer (Acute) SOB (shortness of breath) (Acute) Ascending aorta dilatation (Acute) 3.7 cm on 11/2019 Obesity (Chronic) Gastroesophageal reflux disease without esophagitis (Chronic) Chronic obstructive lung disease, type A (Chronic 03/26/13) Medical History (Updated 04/24/22 @ 09:20 by Nicolas Scanlon NP) Anticoagulated on warfarin W/U neg. Asthma Breast cancer Carpal tunnel syndrome Cholecystitis 10/29/09 unspecified Colon polyp Contusion of arm, right Disorder of vitamin B12 Diverticulosis of colon without diverticulitis (11/19/08) As found during colonoscopy on 11/06/08 Edema Hiatal hernia (09/02/08) Impacted cerumen of right ear 01/15/15 Malignant neoplasm of female breast (12/21/08) left mastectomy Metastatic colon cancer in female (01/23/17) 01/23/2017; 11/06 L.N. + ; S/P RIGHT HEMICOLECTOMY Muscle strain of right upper arm Osteoarthritis of right knee (10/29/15) 10/29/15; END STAGE RIGHT KNEE Renal insufficiency, mild Sensory hearing loss, bilateral (01/15/15) Smoker 1PPD/47 years--quit 10/24/2002 Tinnitus (01/15/15) Ulnar neuropathy Urinary, incontinence, stress female (05/04/11) Vitamin D deficiency disease (08/12/08) Surgical History Arthroplasty 10/29/15; RIGHT KNEE; DR. FORBES Breast, Mastectomy Cholecystectomy (~10/2009) Colonoscopy - MAC (04/12/17) Colonoscopy - MAC (05/12/18) Hemicolectomy (01/23/17) RIGHT History of colonoscopy (~12/2021) Hysterectomy, Laproscopic (~1978) S/P laparoscopic hysterectomy S/P total knee replacement left-2002; right-10/2005 Status post cholecystectomy Status post laparoscopic hysterectomy Status post left mastectomy (12/10/14) Family History Mother , 71 Heart disease Colon cancer Father , 75 Essential hypertension Heart disease Alcohol abuse Maternal Grandfather , 82 Essential hypertension Heart disease Stroke Paternal Grandfather , 62 Heart disease Maternal Grandmother , 88 Essential hypertension Breast cancer Paternal Grandmother , 98 Diabetes Essential hypertension Stroke Sister Asthma Sister No problems noted. Sister No problems noted. Son No problems noted. Son No problems noted. Son No problems noted. 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 Pets and animals: No Sexually active: No Do you think of yourself as: straight/heterosexual Current gender identity: female What is your relationship status?: How often do you talk on the phone with friends or family?: three or more times per week How often do you get together with friends or relatives?: three or more times per week How often do you attend taoism or mu-ism services?: decline to answer Do you belong to any clubs or organized social groups?: no Panel score (0-1 are the most socially isolated patients): 1 What type of physical activity do you participate in: other Details: Treadmill Duration: 15-30 minutes/day Frequency: daily Tabatha/Christian: Pentecostalism Special tabatha needs: No Seatbelt use: always Helmet use: No Drive intox or ride w/intox entry level truck driver: No Do you feel safe at home: Yes Do you feel safe in your relationship?: Yes Exam Const General: cooperative, comfortable and no acute distress Orientation: alert, awake and oriented x3 Resp Effort & Inspection: normal respiratory effort and able to speak in complete sentences Auscultation: clear to auscultation bilaterally Cardio Rate: regular rate Rhythm: regular rhythm Heart Sounds: S1 normal and S2 normal Skin General skin exam: erythema (Circular area with central bite pan consistent with insect/tick bite), no fluctuance, no induration and other Rashes: no rashes Neuro General: patient alert, patient awake and patient oriented x3 Psych Appearance: grossly normal Mood: anxious mood Affect: anxious affect Course Vital Signs Vital signs: Vital Signs Temperature 36.8 C 04/24/22 09:00 Pulse 94 H 04/24/22 09:00 Respiratory Rate 16 04/24/22 09:00 Blood Pressure 145/56 H 04/24/22 09:00 Pulse Oximetry 98 04/24/22 09:00 Temperature 36.8 C 04/24/22 09:00 Temperature Source Temporal Artery Scan 04/24/22 09:00 Pulse 94 H 04/24/22 09:00 Respiratory Rate 16 04/24/22 09:00 Respiratory Effort Non-Labored 04/24/22 09:07 Blood Pressure 145/56 H 04/24/22 09:00 Blood Pressure Position Sitting 04/24/22 09:00 Pulse Oximetry 98 04/24/22 09:00 Oxygen Delivery Method Room Air 04/24/22 09:00 Oxygen Flow Rate 0 04/24/22 09:00 Pain Level 2 04/24/22 09:00
[2022-04-24] MEDS: Cephalexin 500 MG CAP PO (09:23)
[2022-04-25 13:16] LABS: COVID-19 RT-PCR UVMMC Result Negative (Negative)
[2022-04-26 11:58] LABS: Lyme Ab w Rflx to Lyme Confirm Negative (Negative)
[2022-04-28 18:59] LABS: B. miyamotoi PCR Negative (Negative); Babesia divergens/MO-1 Negative (Negative); Babesia duncani Negative (Negative); Babesia microti Negative (Negative); Ehrlichia chaffeensis Negative (Negative); Ehrlichia ewingii/canis Negative (Negative); Ehrlichia muris eauclairensis Negative (Negative)
[2022-04-28 20:13] LABS: Anaplasma phagocytophilum Positive (Negative)
== END 2022-04-24 09:31 | disposition home or self-care (01) ==
LOC: ER 09:28
PROVIDERS: Emergency Provider Nurse Practitioner Family; PCP Family Medicine
DX: S80.861A Insect bite (nonvenomous), right lower leg, initial encounter (principal); L03.115 Cellulitis of right lower limb; J45.909 Unspecified asthma, uncomplicated; Z20.822 Contact with and (suspected) exposure to COVID-19; Z79.51 Long term (current) use of inhaled steroids; Z87.891 Personal history of nicotine dependence; W57.XXXA Bitten or stung by nonvenomous insect and other nonvenomous arthropods, initial encounter
CPT/HCPCS: 36415; 87798; 99283; 99284; U0003; U0005; 86618

== ENCOUNTER 2022-05-03 15:57 | Outpatient (REF) | payer MEDICARE, SELFPAY ==
[2022-05-03 12:54] LABS: Abs Immature Grans 0.08 10^3/uL (0.0-0.06); Absolute Basophil Count 0.02 10^3/uL (0.0-0.2); Absolute Eosinophil Count 0.02 10^3/uL (0.0-0.7); Absolute Monocyte Count 0.32 10^3/uL (0.1-0.8); Absolute Neutrophil Count 6.15 10^3/uL (1.2-6.7); Basophils % 0.3; Eosinophils % 0.3; HCT 40.9 % (36.0-46.0); HGB 12.7 g/dL (11.2-15.7); Immature Grans % 1.1; MCH 28.2 pg (27.0-33.0); MCHC 31.1 % (32.0-36.0); MCV 91 fL (80-95); MPV 10.2 fL (8.0-11.0); Monocytes % 4.3; Platelet Count 183 10^3/uL (130-400); RBC 4.51 10^6/uL (3.93-5.22); RDW 15.2 % (11.7-14.6); WBC 7.49 10^3/uL (4.4-10.8)
[2022-05-03 13:32] LABS: ALT 151 U/L (14-59); AST 55 U/L (15-37); Albumin 2.8 g/dL (3.4-5.0); Alkaline Phosphatase 112 U/L (46-116); Anion Gap 10.9 mmol/L (3-11); BUN 13 mg/dL (7-18); Bilirubin, Total 0.4 mg/dL (0.2-1.0); CO2 28.1 mmol/L (21.0-32.0); Chloride 100 mmol/L (98-107); Estimated GFR 53.35 (mL/min/1.73m2); Glucose 111 mg/dL (74-106); Potassium 3.7 mmol/L (3.5-5.1); Sodium 139 mmol/L (136-145)
[2022-05-04 10:53] LABS: Lyme Ab w Rflx to Lyme Confirm Negative (Negative)
[2022-05-05 00:51] LABS: B. miyamotoi PCR Negative (Negative); Babesia divergens/MO-1 Negative (Negative); Babesia duncani Negative (Negative); Babesia microti Negative (Negative); Ehrlichia chaffeensis Negative (Negative); Ehrlichia ewingii/canis Negative (Negative); Ehrlichia muris eauclairensis Negative (Negative)
[2022-05-05 16:54] LABS: Anaplasma phagocytophilum Positive (Negative)
--- NOTE | 2022-05-11 21:51 | W.ED.FU ---
Date of service: 05/11/22 Time of Service: 21:52 Follow Up Plan: Called patient and she stated that she had been placed on doxycycline by her urgent care visit. She was informed that she had anaplasmosis prior to my phone call and states that she is significantly improving and that the medication is working. Discussed return and follow-up precautions as needed but reassured that she is feeling better and is on the appropriate medication. She does state that she was placed on doxycycline twice daily for 14 days.
== END 2022-05-03 15:58 | disposition home or self-care (01) ==
LOC: LBN 15:57
PROVIDERS: PCP Family Medicine; Visit Provider Physician Assistant Medical
DX: R50.9 Fever, unspecified; R51.9 Headache, unspecified; R53.83 Other fatigue; A69.20 Lyme disease, unspecified; W57.XXXA Bitten or stung by nonvenomous insect and other nonvenomous arthropods, initial encounter; T14.8XXA Other injury of unspecified body region, initial encounter
CPT/HCPCS: 80053; 87798; 85025; 86618

== ENCOUNTER 2022-05-17 14:59 | Outpatient (REF) | payer MEDICARE, SELFPAY ==
[2022-05-17 15:37] LABS: ALT 32 U/L (14-59); AST 26 U/L (15-37); Albumin 3.5 g/dL (3.4-5.0); Alkaline Phosphatase 84 U/L (46-116); Anion Gap 8.2 mmol/L (3-11); BUN 22 mg/dL (7-18); Bilirubin, Total 0.3 mg/dL (0.2-1.0); CO2 29.8 mmol/L (21.0-32.0); CREATININE 1.1 mg/dL (0.55-1.02); Calcium 9.2 mg/dL (8.5-10.1); Chloride 104 mmol/L (98-107); Estimated GFR 47.79 (mL/min/1.73m2); Glucose 97 mg/dL (74-106); NT-proBNP 264 pg/mL (<300); Potassium 4.5 mmol/L (3.5-5.1); Sodium 142 mmol/L (136-145); Total Protein 7.7 g/dL (6.4-8.2)
== END 2022-05-17 15:00 | disposition home or self-care (01) ==
LOC: LBN 14:59
PROVIDERS: PCP Family Medicine; Visit Provider Nurse Practitioner Family
DX: R06.02 Shortness of breath (principal); R60.0 Localized edema
CPT/HCPCS: 80053; 83880

== ENCOUNTER 2022-05-27 03:15 | Outpatient (CLI) | payer MEDICARE, SELFPAY ==
[2022-05-27 09:45] LABS: Abs Immature Grans 0.06 10^3/uL (0.0-0.06); Absolute Basophil Count 0.04 10^3/uL (0.0-0.2); Absolute Eosinophil Count 0.17 10^3/uL (0.0-0.7); Absolute Lymphocyte Count 2.16 10^3/uL (1.2-3.4); Absolute Monocyte Count 0.73 10^3/uL (0.1-0.8); Absolute Neutrophil Count 6.03 10^3/uL (1.2-6.7); Basophils % 0.4; Eosinophils % 1.8; HCT 42.6 % (36.0-46.0); HGB 13.2 g/dL (11.2-15.7); Immature Grans % 0.7; Lymphocytes % 23.5; MCH 28.1 pg (27.0-33.0); MCV 91 fL (80-95); MPV 9.6 fL (8.0-11.0); Monocytes % 7.9; Neutrophils % 65.7; Platelet Count 203 10^3/uL (130-400); RDW 15.4 % (11.7-14.6); RDW-SD 50.9 fL; WBC 9.19 10^3/uL (4.4-10.8)
[2022-05-27 10:01] LABS: ALT 28 U/L (14-59); AST 25 U/L (15-37); Albumin 3.1 g/dL (3.4-5.0); Alkaline Phosphatase 80 U/L (46-116); Anion Gap 5.5 mmol/L (3-11); BUN 19 mg/dL (7-18); Bilirubin, Total 0.3 mg/dL (0.2-1.0); CO2 31.5 mmol/L (21.0-32.0); CREATININE 1.1 mg/dL (0.55-1.02); Chloride 101 mmol/L (98-107); Estimated GFR 47.79 (mL/min/1.73m2); Glucose 99 mg/dL (74-106); Sodium 138 mmol/L (136-145); Total Protein 7.9 g/dL (6.4-8.2)
== END 2022-05-27 03:16 | disposition home or self-care (01) ==
LOC: LBO 03:15
PROVIDERS: PCP Family Medicine; Visit Provider Internal Medicine Hematology & Oncology
DX: C18.2 Malignant neoplasm of ascending colon (principal)
CPT/HCPCS: 36415; 80053; 82378; 85025

== ENCOUNTER → 2022-06-25 00:51 | Outpatient (CLI) | payer MEDICARE, SELFPAY ==
[2022-06-25] MEDS: Barium Sulfate 2% W/V-Berry Smoothie 450 ML BTL 900 ML PO (08:02)
--- NOTE | 2022-06-25 09:00 | DI.CT_ITS ---
Exam(s) CT CHEST/ABD/PEL W EXAM: CT CHEST/ABD/PEL W CLINICAL HISTORY: H/O STAGE III COLON CA, S/P RESECTION/ADJUVANT CHEMO, RESTAGING, C18.2 TECHNIQUE: CT examination of the chest, abdomen, and pelvis was performed utilizing intravenous inf usion of 100 cc of Omnipaque 350 with biphasic hepatic imaging. Oral contrast was also administered. COMPARISON: CT CT CHEST/ABD/PEL W from 05/11/2021 FINDINGS: Lungs are clear with a few small stable pleural based nodules. There are moderate to severe emphysem atous changes. No pleural effusion. No pleural based mass. No mediastinal or hilar adenopathy. No axillary or supraclavicular adenopathy. Tracheobronchial arpan e appears intact. No evidence of pulmonary embolic disease. Unremarkable appearance of thoracic aorta and major branch vessels. There is a prior hemicolectomy. The liver appears normal with no focal hepatic lesion identified. Spleen is unremarkable in appearance. Pancreas appears intact. Adrenals appear normal. Kidneys are unremarkable in appearance with no renal mass, hydronephrosis, or nephrolithiasis. Tiny right renal cysts incidentally noted. Abdominal aorta and major visceral branches appear intact. No focal bowel pathology. Appendix is normal. No evidence of diverticulitis. No abdominal or pelvic adenopathy. Uterus is atrophic or absent. No significant abdominal wall hernia. No focal bony lesion identified on scanning of the chest, abdomen, and pelvis. IMPRESSION: No evidence metastatic disease the chest, abdomen, pelvis in a patient with a history of colon carcin eusebio.. RADIATION DOSE DELIVERED: 2,321.07mGy.cm Total DLP 2,321.07mGy.cm Total DLP !Error CTDIvol DATA REPOSITORY: All CT scans at this facility are submitted to the National Radiology Data Registry (NRDR) Dose Index Registry (DIR) with the [employer] (ACR). RADIATION OPTIMIZATION: All CT scans at this facility use at least one of these dose optimization te chniques: automated exposure control; mA and/or kV adjustment per patient size (includes targeted exa ms where dose is matched to clinical indication); or iterative reconstruction.
[2022-06-25] MEDS: Omnipaque 350 MG/ML 100 ML BTL IV (09:56)
== END ==
PROVIDERS: PCP Family Medicine; Visit Provider Internal Medicine Hematology & Oncology
DX: C18.2 Malignant neoplasm of ascending colon (principal); Z92.21 Personal history of antineoplastic chemotherapy; R91.8 Other nonspecific abnormal finding of lung field; J43.8 Other emphysema; Z12.89 Encounter for screening for malignant neoplasm of other sites
CPT/HCPCS: 74177; 71260; J3490

== ENCOUNTER 2022-09-21 02:22 | Outpatient (CLI) | payer MEDICARE, SELFPAY ==
--- NOTE | 2022-09-21 07:15 | DI.RAD_ITS ---
Exam(s) XR ANKLE LT COMPLETE EXAM: XR ANKLE LT COMPLETE CLINICAL HISTORY: left ankle pain,M25.579 TECHNIQUE: 2D digital imaging was performed of the left ankle. Three images were obtained. AP, lat eral and oblique views were obtained. COMPARISON: No exams were available for comparison FINDINGS: BONES: No acute fracture is present. No bony destructive lesion is seen. There is a large plantar jonathan caneal spur. JOINTS:The ankle mortise is normally aligned. SOFT TISSUE: Normal. IMPRESSION: No acute abnormality. DATA REPOSITORY: RADIATION DOSE DELIVERED:
--- NOTE | 2022-09-21 07:15 | DI.RAD_ITS ---
Exam(s) XR CHEST 2V PA LATERAL EXAM: XR CHEST 2V PA LATERAL CLINICAL HISTORY: cough,SOB,R05.9,R06.02 TECHNIQUE: 2D digital imaging was performed of the chest. Two images were obtained. PA and lateral views were obtained. COMPARISON: CR RIGHT SHOULDER COMPLETE from 07/05/2017 FINDINGS: MEDIASTINUM: Normal. HEART: Normal. PULMONARY VASCULATURE: Normal. LUNGS: Clear. PLEURAL SPACE: No pleural effusion or pneumothorax. BONE:Within normal limits for the patient's age. OTHER FINDINGS:Surgical clips are seen in the right anterior chest wall. IMPRESSION: No acute pulmonary findings. DATA REPOSITORY: RADIATION DOSE DELIVERED:
== END 2022-09-21 02:42 ==
LOC: DI 02:22
PROVIDERS: PCP Family Medicine; Visit Provider Family Medicine
DX: M25.572 Pain in left ankle and joints of left foot (principal); R05.9 Cough, unspecified; R06.02 Shortness of breath
CPT/HCPCS: 71046; 73610

== ENCOUNTER 2022-09-21 04:01 | Outpatient (CLI) | payer MEDICARE, SELFPAY ==
[2022-09-21 12:23] LABS: HCT 43.3 % (36.0-46.0); HGB 13.5 g/dL (11.2-15.7); MCHC 31.2 % (32.0-36.0); MCV 90 fL (80-95); MPV 9.6 fL (8.0-11.0); Platelet Count 234 10^3/uL (130-400); RBC 4.82 10^6/uL (3.93-5.22); RDW 13.8 % (11.7-14.6); WBC 7.84 10^3/uL (4.4-10.8)
[2022-09-21 12:47] LABS: Hemoglobin A1C 6.1 % (<5.7)
[2022-09-21 13:06] LABS: ALT 29 U/L (14-59); AST 22 U/L (15-37); Albumin 3.5 g/dL (3.4-5.0); Alkaline Phosphatase 92 U/L (46-116); Anion Gap 7.2 mmol/L (3-11); BUN 14 mg/dL (7-18); Bilirubin, Total 0.2 mg/dL (0.2-1.0); CO2 29.8 mmol/L (21.0-32.0); CREATININE 1.4 mg/dL (0.55-1.02); Calcium 8.7 mg/dL (8.5-10.1); Chloride 103 mmol/L (98-107); Estimated GFR 38.03 (mL/min/1.73m2); Glucose 104 mg/dL (74-106); NT-proBNP 231 pg/mL (<300); Potassium 3.9 mmol/L (3.5-5.1); Sodium 140 mmol/L (136-145); TSH (W/Ref FT4) 5.55 uIU/mL (0.36-3.74); Total Protein 7.9 g/dL (6.4-8.2)
[2022-09-21 13:25] LABS: FREE T4 0.77 ng/dL (0.76-1.46)
[2022-09-21 14:05] LABS: Vitamin B12 320 pg/mL (193-986)
== END 2022-09-21 04:02 | disposition home or self-care (01) ==
LOC: LBO 04:01
PROVIDERS: PCP Family Medicine; Visit Provider Family Medicine
DX: E11.9 Type 2 diabetes mellitus without complications (principal); I10 Essential (primary) hypertension; R53.83 Other fatigue; R06.02 Shortness of breath; R05.8 Other specified cough; G56.02 Carpal tunnel syndrome, left upper limb; G62.9 Polyneuropathy, unspecified; R60.0 Localized edema; M25.572 Pain in left ankle and joints of left foot; I77.810 Thoracic aortic ectasia; E53.8 Deficiency of other specified B group vitamins
CPT/HCPCS: 36415; 80053; 85027; 71046; 73610; 82607; 83036; 83880; 84439; 84443

== ENCOUNTER 2022-09-29 12:18 | Outpatient (CLI) | payer MEDICARE, SELFPAY ==
--- NOTE | 2022-09-29 14:47 | DI.US_ITS ---
APPROVED REPORT EXAM: Comprehensive 2D, Doppler, and color-flow Echocardiogram Patient Location: Out[facility]Patient [facility]house Material Handler: Lesley Campbell RDCS (AE) Indications: Essential HTN, Ascending aorta dilatation, edema Other Information Study Quality: Adequate Conclusion Normal left ventricular chamber size. Mild concentric left ventricular hypertrophy. Estimated eject ion fraction is 60%. Wall motion is normal Normal right ventricular size and systolic function Both atria are normal in size Aortic valve is sclerotic and trileaflet without stenosis or regurgitation Moderate mitral annular calcification. Mild mitral regurgitation Normal tricuspid valve with trace regurgitation. Estimated right ventricular systolic pressure is 32 mmHg Mildly dilated ascending aorta measuring 3.62 cm Wall motion Left Ventricle The left ventricle is normal size. The left ventricular systolic function is normal. The left ventric ular ejection fraction is within the normal range. Mild concentric left ventricular hypertrophy. Ther e is normal LV segmental wall motion. There is no ventricular septal defect visualized. LVEF is 60%. Right Ventricle The right ventricle is normal size. The right ventricular systolic function is normal. The RVSP is 35 .2 mmHg. Atria The left atrium size is normal. The right atrium size is normal. The interatrial septum is intact wit h no evidence for an atrial septal defect. Aortic Valve Aortic valve is trileaflet. The Aortic valve is sclerotic. There is no aortic valvular stenosis. No aortic regurgitation is present. Mitral Valve Moderate mitral annular calcification. Mild mitral regurgitation. Tricuspid Valve The tricuspid valve is normal in structure. There is no tricuspid valve stenosis. Trace tricuspid reg urgitation. Pulmonic Valve The pulmonary valve is normal in structure. There is no pulmonic valvular stenosis. Trace pulmonic re gurgitation. Great Vessels The aortic root is normal in size. The ascending aorta is mildly dilated. IVC is normal in size and c ollapses >50% with inspiration. Pericardium There is no pericardial effusion. 2D Dimensions IVSD d PLAX 1.13 cm F: 0.6-1.0 LV Vol A2C d MOD 95.2 mL LVPW d PLAX 1.12 cm F: 0.6 - 1.0 LV Vol A4C d MOD 90.2 mL LVID d PLAX 4.33 cm F: 3.8 - 5.2 LA Area A4C s MOD 21.69 cm2 LVDs 2.80 cm F: 2.2 - 3.5 LA Area A2C s MOD 11.95 cm2 Ao Root d 2.85 cm F: 2.7 - 3.3 LV EF A4C MOD 59.6 % RA Area A4C 16.85 cm2 LV EF A2C MOD 60.1 % Ao Asc Diam d 3.62 cm F: 2.3 - 3.1 LV EF Biplane MOD 60.9 % LV EF Teichholz 63.5 % SV 58.41 mL LVEF (Cash's) 60.87 % F: 54 - 74 LV Volume 95.96 mL F: 46 - 106 LV Vol Biplane MOD 96.0 mL FS 34.20 % M-Mode TAPSE 2.46 cm (M/F) >1.7 LV Diastology MV E' medial 0.075 (>0.07 m/s) E/A Ratio 0.8 LV E/e MED 15.35 (<14) MV E Vmax 1.15 (0.4-1.3 m/s) MV E' lateral 0.088 (>0.1 m/s) MV A Vmax 1.50 (0.4-1.3 m/s) LV E/e LAT 13.05 (<14) MV E/A Ratio 0.77 MV E/E' medial 15.36 MV E/E' lateral 13.09 Aortic Valve LVOT Area 3.00 cm2 AoV Area Vmax 2.25 cm2 LVOT Vmax 1.36 m/s NOEMY Mean Felipe. 2.04 cm2 LVOT Mean Felipe. 0.87 m/s LVOT Peak Grad 7.4 mmHg LVOT Mean Grad 3.6 mmHg LVOT VTI 0.310 m LVOT Diam s 1.95 cm AoV Vmax 1.82 m/s Velocity Ratio 0.75 AoV Mean Felipe. 1.28 m/s AoV Peak Grad 13.2 mmHg LVOT SV 92.77 mL AoV Mean Grad 7.2 mmHg AoV VTI 0.350 m AoV Area VTI 2.65 cm2 Mitral Valve MV DT 343 (160-240 msec) MV PHT 99 msec MV Area PHT 2.21 cm2 MV VTI 0.397 m MV VTI Annulus 0.428 m MV Area VTI 2.54 (4.0-6.0 cm2) Pulmonary Valve PV Vmax 0.87 (0.5-1.5 m/s) RVOT Peak Gr. 2.52 mmHg PV Peak Grad 3.0 mmHg RVOT Mean Gr. 1.25 mmHg PV Mean Grad 1.5 mmHg RVOT VTI 0.161 m PV VTI 0.163 m RVOT Vmax 0.79 m/s Tricuspid Valve TR Peak Grad 32.1 mmHg TR Vmax 2.84 m/s RA Pressure 3.00 mmHg RVSP (TR) 35.2 mmHg
== END 2022-09-29 12:38 ==
LOC: DI 12:19
PROVIDERS: PCP Family Medicine; Visit Provider Family Medicine
DX: I10 Essential (primary) hypertension (principal); I77.810 Thoracic aortic ectasia; R60.9 Edema, unspecified
CPT/HCPCS: 93306

== ENCOUNTER → 2022-10-05 13:54 | Outpatient (BNVA) | payer MEDICARE, SELFPAY | PROVIDERS: PCP Family Medicine; Referring Provider Family Medicine; Visit Provider Nurse Practitioner Adult Health | DX: G56.02 Carpal tunnel syndrome, left upper limb (principal) | CPT/HCPCS: 95908; 99203; 99214 ==

== ENCOUNTER → 2022-12-09 08:52 | Outpatient (BNVA) | payer MEDICARE, SELFPAY | PROVIDERS: PCP Family Medicine; Referring Provider Family Medicine; Visit Provider Student in an Organized Health Care Education/Training Program | DX: G56.02 Carpal tunnel syndrome, left upper limb (principal) | CPT/HCPCS: 99213 ==

== ENCOUNTER 2023-02-02 07:09 | Day surgery (SDC) | payer MEDICARE, SELFPAY ==
--- NOTE | 2023-02-02 07:24 | W.PM.DSUDISC ---
Date of service: 02/02/23 Time of Service: 07:24 Discharge Plan Disposition Patient Disposition: Home Condition: Good Discharge Details Reason For Visit: L ECTR Attending Provider: Andres Cast Primary Care Provider: Poly Copeland Home Meds and New Rx's Prescriptions: New hydrocodone-acetaminophen 5-325 mg tablet 1 tab PO Q6H PRN (Reason: pain) Qty: 4 0RF acetaminophen 500 mg tablet 1,000 mg PO TID Qty: 90 0RF ibuprofen 600 mg tablet 600 mg PO TID PRN (Reason: pain) Qty: 90 0RF Continued [id number]-adzy-qsb-zvfx-ggn 600 mg calcium- 800 unit-50 mg tablet 1 tab PO DAILY cholecalciferol (vitamin D3) 1,000 unit capsule 1,000 unit PO DAILY furosemide 40 mg tablet 40 mg PO DAILY Qty: 90 5RF omeprazole 20 mg capsule,delayed release(DR/EC) 20 mg PO DAILY Qty: 90 3RF potassium chloride 20 mEq tablet,ER particles/crystals 20 meq PO DAILY Qty: 90 4RF Shingrix (PF) 50 mcg/0.5 mL suspension for reconstitution 0.5 ml IM ONCE Qty: 1 1RF Rx Instructions: as a single dose. Repeat in 2 months levothyroxine 75 mcg tablet 75 mcg PO DAILY Qty: 90 6RF triamcinolone acetonide 0.1 % cream 1 applic TP BID PRN Rx Instructions: apply to back and chin aspirin [Aspirin Low-Strength] 81 MG tablet,chewable 81 mg PO DAILY polyethylene glycol 3350 [Miralax] 527 GM powder 17 g PO .QOD PRNQty: 3 albuterol sulfate 90 mcg/actuation HFA aerosol inhaler 2 puff INHALATION QID PRN (Reason: shortness of breath or wheezing) Qty: 3 4RF fesoterodine [Toviaz] 8 mg tablet extended release 24 hr 8 mg PO DAILY Qty: 90 5RF solifenacin [Vesicare] 10 mg tablet 10 mg PO DAILY Qty: 30 12RF Trelegy Ellipta 100-62.5-25 mcg blister with device 1 inh inhalation DAILY Qty: 180 4RF Rx Instructions: please dispense 3 months multivitamin [Daily Multiple] 1 EACH tablet 1 ea PO DAILY Discharge Instructions Stand Alone Forms: [place] C. Tunnel Release Referrals: Andres Cast MD [ [facility] STAFF PHYSICIAN] - Activity:: Activity as Tolerated Remove Dressings/Wound Care:: 48 hours Shower/Bathe:: 48 hours Diet:: As Tolerated Discharge Orders Discharge Orders: Discharge Order (Routine); Ordered 02/02/23 Ordered By: Drake Shabazz
[2023-02-02 07:32] VITALS: BP 147/52; PULSE 78; RESP 16; TEMP 36.8; O2SAT 94
[2023-02-02] MEDS: Lactated Ringers 1,000 ML 80 ML IV (07:59)
--- NOTE | 2023-02-02 08:12 | W.ANESPRE ---
General Info Date of Service Date Performed: 02/02/23 Height: 5 ft 3 in Weight: 96.2 kg Body Mass Index (BMI): 37.5 Surgical Procedure: Operation Date: 02/02/23 09:55 Proposed Procedure Side Surgeon p Wrist ECTR Left Andres Cast MD Meds Allergies and Home Medications Allergies Allergy/AdvReac Type Severity Reaction Status Date / Time Sulfa (Sulfonamide Allergy Intermediate BURNING Verified 12/28/22 13:22 Antibiotics) TONGUE letrozole AdvReac Intermediate Insomnia, Verified 12/28/22 13:22 depression Home Medication Medication Instructions Recorded aspirin 81 mg chewable tablet 81 mg PO DAILY 11/05/15 (Aspirin Low-Strength) polyethylene glycol 3350 17 17 g PO .QOD PRN ##3 12/16/15 gram/dose oral powder (Miralax) multivitamin (Daily Multiple 1 ea PO DAILY 04/07/17 tablet) calcium 600 mg-D3 800 unit-mag11 1 tab PO DAILY 01/15/19 50 wj-kowc-ltoqvl-bandar-s.borat tablet cholecalciferol (vitamin D3) 25 1,000 unit PO DAILY 07/26/19 mcg (1,000 unit) capsule triamcinolone acetonide 0.1 % 1 applic topical BID PRN 11/19/19 topical cream albuterol sulfate 90 mcg/actuation 2 puff inhalation QID PRN 07/09/22 aerosol inhaler shortness of breath or wheezing #3 ea Toviaz 8 mg tablet,extended 8 mg PO DAILY #90 tabs 12/10/22 release (fesoterodine) fluticasone fur. 100 mcg-umeclid 1 inh inhalation DAILY #180 ea 12/11/22 62.5 mcg-vilant 25 mcg inhalat.powder (Trelegy Ellipta) solifenacin 10 mg tablet (Vesicare) 10 mg PO DAILY #30 tabs 12/11/22 furosemide 40 mg tablet 40 mg PO DAILY #90 tabs 12/28/22 levothyroxine 75 mcg tablet 75 mcg PO DAILY #90 tabs 12/28/22 omeprazole 20 mg capsule,delayed 20 mg PO DAILY #90 tab-caps 12/28/22 release potassium chloride 20 mEq 20 meq PO DAILY #90 tabs 12/28/22 tablet,extended release(part/cryst) varicella-zoster glycoE vacc-[id number] 0.5 ml IM ONCE #1 ea 12/28/22 adj(PF) 50 mcg/0.5 mL IM susp, kit (Shingrix (PF)) acetaminophen 500 mg tablet 1,000 mg PO TID #90 tabs 02/02/23 hydrocodone 5 mg-acetaminophen 325 1 tab PO Q6H PRN pain #4 tabs 02/02/23 mg tablet ibuprofen 600 mg tablet 600 mg PO TID PRN pain #90 tabs 02/02/23 Current Visit Medications: Current Medications Generic Name Dose Route Start Last Admin Trade Name Freq PRN Reason Stop Dose Admin Acetaminophen 650 mg 02/02/23 07:23 Acetaminophen 325 Mg Tab PO Q4H PRN PRN Hydrocodone Bitart/Acetaminophen 0 tab 02/02/23 07:23 Hydrocodone 5/Acetaminophen 325 Tab PO Q3H PRN PRN Pain Ringer's Solution 1,000 mls @ 80 mls/hr 02/02/23 06:00 02/02/23 07:59 IV 03/03/23 23:59 80 mls/hr INFUSION JANET Administration Cefazolin Sodium/Dextrose 2 gm in 50 mls @ 100 mls/hr 02/02/23 06:00 Ancef Duplex IVPB 02/02/23 16:00 PREOP JANET IV Miscellaneous Supplies 1 each 02/02/23 06:00 Iv Access IV 03/03/23 23:59 DIRECTED JANET Sodium Chloride 0 ml 02/02/23 06:00 Normal Saline Flush 10 Ml Syr IV 03/03/23 23:59 PRN PRN Sodium Chloride 0 ml 02/02/23 06:00 Normal Saline 10 Ml Vial IJ 03/03/23 23:59 DIRECTED PRN Sterile Water 0 ml 02/02/23 06:00 Water,Injection,Sterile 10 Ml Vial IJ 03/03/23 23:59 DIRECTED PRN PFSH Active Problems Active Problems: Problem Status Onset Code Chronic obstructive lung disease, type A 03/26/13 J43.9 Essential hypertension 10/05/13 I10 Gastroesophageal reflux disease without esophagitis K21.9 Obesity E66.9 Ascending aorta dilatation I77.810 SOB (shortness of breath) R06.02 Screening for colon cancer Z12.11 Hyperplastic colon polyp K63.5 Serrated adenoma of colon D12.6 Carpal tunnel syndrome G56.00 Cough R05.9 Peripheral neuropathy G62.9 Ankle pain M25.579 Edema R60.9 Left carpal tunnel syndrome G56.02 Hypoxia R09.02 Medical History Medical History Anticoagulated on warfarin W/U neg. Asthma Breast cancer Carpal tunnel syndrome Cholecystitis 10/29/09 unspecified Colon polyp Contusion of arm, right Disorder of vitamin B12 Diverticulosis of colon without diverticulitis (11/19/08) As found during colonoscopy on 11/06/08 Edema Hiatal hernia (09/02/08) Impacted cerumen of right ear 01/15/15 Malignant neoplasm of female breast (12/21/08) left mastectomy Metastatic colon cancer in female (01/23/17) 01/23/2017; 11/06 L.N. + ; S/P RIGHT HEMICOLECTOMY Muscle strain of right upper arm Osteoarthritis of right knee (10/29/15) 10/29/15; END STAGE RIGHT KNEE Renal insufficiency, mild Sensory hearing loss, bilateral (01/15/15) Smoker 1PPD/47 years--quit 10/24/2002 Tinnitus (01/15/15) Ulnar neuropathy Urinary, incontinence, stress female (05/04/11) Vitamin D deficiency disease (08/12/08) Surgical History Surgical History (Updated 02/02/23 @ 07:31 by Fili Montano) Arthroplasty 10/29/15; RIGHT KNEE; DR. FORBES Breast, Mastectomy Bilat Cholecystectomy (~10/2009) Colonoscopy - MAC (04/12/17) Colonoscopy - MAC (05/12/18) Hemicolectomy (01/23/17) RIGHT History of colonoscopy (~12/2021) History of total bilateral knee replacement (TKR) Hysterectomy, Laproscopic (~1978) S/P laparoscopic hysterectomy S/P total knee replacement left-2002; right-10/2005 Status post cholecystectomy Status post laparoscopic hysterectomy Status post left mastectomy (12/10/14) b/l Tobacco Smoking/Tobacco Use Status: Former Tobacco Use Passive smoking exposure: Yes Second hand exposure: Yes Alcohol Alcohol Intake: never Substance Use Substance use: Never Substance use type: does not use Vital Signs and Lab Results Vital Signs Most Recent Vital Signs in EMR: Most Recent Vital Signs Temp Pulse Resp BP Pulse Ox 36.8 C 78 16 147/52 H 94 02/02/23 07:32 02/02/23 07:32 02/02/23 07:32 02/02/23 07:32 02/02/23 07:32 Lab Results Blood Type / Crossmatch: No Data to Display Complete Blood Count: No Data to Display Complete Metabolic Panel: No Data to Display Liver Function Panel: No Data to Display Coagulation Panel: No Data to Display Cardiac Panel: No Data to Display Arterial Blood Gas: No Data to Display Venous Blood Gas: No Data to Display Pancreas Panel: No Data to Display Thyroid Panel: No Data to Display Infectious Disease: No Data to Display Blood Cultures: No Data to Display Toxicology Panel: No Data to Display Anesthesia Assessment and Plan Anesthesia History Personal History: No History of Anesthesia Complications Family History: No Family History of Anesthesia Complications Exercise Tolerance Exercise Tolerance: Metabolic Equivalents<4 Pertinent Negatives Pertinent Negatives: No Symptoms of GERD, No Major Cardiovascular Symptoms or Complaints and No Major Pulmonary Symptoms or Complaints (breathing is good today per patient) Cardiac & Pulmonary Exam Cardiac Exam: Normal S1/S2 Heart Sounds Pulmonary Exam: Clear Bilateral Breath Sounds Implantable Cardiac Device Does patient have a Pacemaker or an ICD?: No Airway Exam Known Difficult Airway: No Mallampati Class: 3 Mouth Opening: Narrow (< 3cm) Thyromental Distance: Less than 3 cm Neck Range of Motion: Full ROM Neck Circumference: Thick Teeth Condition: Normal Dentition (lower) and Removable Dentures/Plates Upper ASA Classification ASA Score: ASA 3 Emergency Case?: No NPO Status NPO Status: NPO Clears >2 hours, Solids >8 hours Anesthesia Plan Resuscitation Status: Full Code Anesthesia Technique: General Anesthesia Airway Planned: Natural Airway Monitors Used: Standard Monitors
[2023-02-02 08:14] VITALS: BMI 37.5
--- NOTE | 2023-02-02 09:02 | W.PREOPHP ---
Assessment and Plan Assessment and plan (1) Left carpal tunnel syndrome: Status: Acute Assessment and plan: Kelly is an 82-year-old female who has carpal tunnel syndrome of the left side. She is here today for carpal tunnel release. I once again reviewed the technical details of the procedure. I reviewed the risk to include bleeding, infection, pain, stiffness, continued numbness, recurrence or redevelopment of symptoms, inflammation and scarring. Despite these risk, she elects to proceed. History of Present Illness History of Present Illness Chief Complaint: Left carpal tunnel syndrome Narrative: Jenn is an 82-year-old female who has left carpal tunnel syndrome. Please see the previous office note for complete detailed history. The numbness and tingling are interfering with her daily activities despite nonoperative treatments. She has no medical history changes. She reports no recent illness. No upper respiratory infections. No chest pain or shortness of breath. Review of Systems All systems reviewed & are unremarkable except as noted in HPI and below PFSH All Active Problems Chronic obstructive lung disease, type A (Chronic 03/26/13) Essential hypertension (Acute 10/05/13) Gastroesophageal reflux disease without esophagitis (Chronic) Obesity (Chronic) Ascending aorta dilatation (Acute) 3.7 cm on 11/2019 SOB (shortness of breath) (Acute) Screening for colon cancer (Acute) Hyperplastic colon polyp (Acute) Serrated adenoma of colon (Acute) Carpal tunnel syndrome (Acute) Cough (Acute) Peripheral neuropathy (Acute) Ankle pain (Acute) Edema (Acute) Left carpal tunnel syndrome (Acute) Hypoxia (Acute) Medical History Anticoagulated on warfarin W/U neg. Asthma Breast cancer Carpal tunnel syndrome Cholecystitis 10/29/09 unspecified Colon polyp Contusion of arm, right Disorder of vitamin B12 Diverticulosis of colon without diverticulitis (11/19/08) As found during colonoscopy on 11/06/08 Edema Hiatal hernia (09/02/08) Impacted cerumen of right ear 01/15/15 Malignant neoplasm of female breast (12/21/08) left mastectomy Metastatic colon cancer in female (01/23/17) 01/23/2017; 11/06 L.N. + ; S/P RIGHT HEMICOLECTOMY Muscle strain of right upper arm Osteoarthritis of right knee (10/29/15) 10/29/15; END STAGE RIGHT KNEE Renal insufficiency, mild Sensory hearing loss, bilateral (01/15/15) Smoker 1PPD/47 years--quit 10/24/2002 Tinnitus (01/15/15) Ulnar neuropathy Urinary, incontinence, stress female (05/04/11) Vitamin D deficiency disease (08/12/08) Surgical History Arthroplasty 10/29/15; RIGHT KNEE; DR. FORBES Breast, Mastectomy Bilat Cholecystectomy (~10/2009) Colonoscopy - MAC (04/12/17) Colonoscopy - MAC (05/12/18) Hemicolectomy (01/23/17) RIGHT History of colonoscopy (~12/2021) History of total bilateral knee replacement (TKR) Hysterectomy, Laproscopic (~1978) S/P laparoscopic hysterectomy S/P total knee replacement left-2002; right-10/2005 Status post cholecystectomy Status post laparoscopic hysterectomy Status post left mastectomy (12/10/14) b/l Family History Mother , 71 Heart disease Colon cancer Father , 75 Essential hypertension Heart disease Alcohol abuse Maternal Grandfather , 82 Essential hypertension Heart disease Stroke Paternal Grandfather , 62 Heart disease Maternal Grandmother , 88 Essential hypertension Breast cancer Paternal Grandmother , 98 Diabetes Essential hypertension Stroke Sister Asthma Sister No problems noted. Sister No problems noted. Son No problems noted. Son No problems noted. Son No problems noted. 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 Pets and animals: No Sexually active: No Do you think of yourself as: straight/heterosexual Current gender identity: female What is your relationship status?: How often do you talk on the phone with friends or family?: three or more times per week How often do you get together with friends or relatives?: once per week How often do you attend presybeterian or synagogue services?: decline to answer Do you belong to any clubs or organized social groups?: no Panel score (0-1 are the most socially isolated patients): 1 What type of physical activity do you participate in: other Details: Treadmill Duration: 15-30 minutes/day Frequency: daily Tabatha/Gnosticism: Sikh Special tabatha needs: No Seatbelt use: always Helmet use: No Drive 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 or ride w/intox 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 Do you feel safe at home: Yes Do you feel safe in your relationship?: Yes Additional Social history: lives alone Meds Allergies and Home Medications Allergies Allergy/AdvReac Type Severity Reaction Status Date / Time Sulfa (Sulfonamide Allergy Intermediate BURNING Verified 12/28/22 13:22 Antibiotics) TONGUE letrozole AdvReac Intermediate Insomnia, Verified 12/28/22 13:22 depression Home Medications Medication Instructions Recorded Confirmed Type aspirin 81 mg chewable tablet 81 mg PO DAILY 11/05/15 02/01/23 History (Aspirin Low-Strength) polyethylene glycol 3350 17 17 g PO .QOD PRN ##3 12/16/15 02/01/23 History gram/dose oral powder (Miralax) multivitamin (Daily Multiple 1 ea PO DAILY 04/07/17 02/01/23 History tablet) calcium 600 mg-D3 800 unit-mag11 1 tab PO DAILY 01/15/19 02/01/23 History 50 cq-ltoe-tdinnv-bandar-s.borat tablet cholecalciferol (vitamin D3) 25 1,000 unit PO DAILY 07/26/19 02/01/23 History mcg (1,000 unit) capsule triamcinolone acetonide 0.1 % 1 applic topical BID PRN 11/19/19 12/28/22 History topical cream albuterol sulfate 90 mcg/actuation 2 puff inhalation QID PRN 07/09/22 02/01/23 Rx aerosol inhaler shortness of breath or wheezing #3 ea Toviaz 8 mg tablet,extended 8 mg PO DAILY #90 tabs 12/10/22 12/28/22 Rx release (fesoterodine) fluticasone fur. 100 mcg-umeclid 1 inh inhalation DAILY #180 ea 12/11/22 02/01/23 Rx 62.5 mcg-vilant 25 mcg inhalat.powder (Trelegy Ellipta) solifenacin 10 mg tablet (Vesicare) 10 mg PO DAILY #30 tabs 12/11/22 02/01/23 Rx furosemide 40 mg tablet 40 mg PO DAILY #90 tabs 12/28/22 02/01/23 Rx levothyroxine 75 mcg tablet 75 mcg PO DAILY #90 tabs 12/28/22 02/01/23 Rx omeprazole 20 mg capsule,delayed 20 mg PO DAILY #90 tab-caps 12/28/22 02/01/23 Rx release potassium chloride 20 mEq 20 meq PO DAILY #90 tabs 12/28/22 02/01/23 Rx tablet,extended release(part/cryst) varicella-zoster glycoE vacc-AS01B 0.5 ml IM ONCE #1 ea 12/28/22 12/28/22 Rx adj(PF) 50 mcg/0.5 mL IM susp, kit (Shingrix (PF)) acetaminophen 500 mg tablet 1,000 mg PO TID #90 tabs 02/02/23 Rx hydrocodone 5 mg-acetaminophen 325 1 tab PO Q6H PRN pain #4 tabs 02/02/23 Rx mg tablet ibuprofen 600 mg tablet 600 mg PO TID PRN pain #90 tabs 02/02/23 Rx Exam Resp Effort & Inspection: normal respiratory effort Auscultation: clear to auscultation bilaterally Cardio Rate: regular rate Rhythm: regular rhythm Results Last Vital Signs Temp 36.8 C 02/02/23 07:32 Pulse 78 02/02/23 07:32 Resp 16 02/02/23 07:32 BP 147/52 H 02/02/23 07:32 Pulse Ox 94 02/02/23 07:32
[2023-02-02] MEDS: Lidocaine 1% Multi-Dose W/EPI 1/100,000 50 ML VIAL ×2 (09:12→09:22)
[2023-02-02] MEDS: ceFAZolin 2 GM/50 ML BAG IVPB (09:12)
[2023-02-02 09:30] VITALS: BP 96/43; PULSE 79; RESP 16; TEMP 36.4; O2SAT 94
--- NOTE | 2023-02-02 09:55 | ROE_ITS ---
Date of service: 02/02/23 Time of Service: 09:30 Operative Note Operative Note DATE OF PROCEDURE: 02/02/23 PRE-OP DIAGNOSIS: Left Carpal Tunnel Syndrome POST-OP DIAGNOSIS: same PROCEDURE: Left Endoscopic Carpal Tunnel Release SURGEON: Andres Cast ANESTHESIA TYPE: General:No Airway Refer to Anesthesia Record ESTIMATED BLOOD LOSS: 0 PATHOLOGY: none sent TOURNIQUET TIME: 6 COMPLICATIONS: None Patient was transported to: same day Patient's condition: stable Indications: I have seen Kelly in clinic for symptoms of carpal tunnel syndrome. The numbness, tingling, and pain limited function. Clinical exam findings with nerve conduction tests confirmed the diagnosis of carpal tunnel syndrome. Nonoperative measures such as bracing, time, activity modifications had been tried but disability and pain persisted. I discussed carpal tunnel release with the patient. I reviewed the risks of the procedure to include, but not limited to, bleeding, infection, pain, stiffness, incomplete release, damage to nerves or vessels, persistent numbness, recurrence. Despite these risks, the patient elected to proceed. Findings: There was tightened carpal tunnel. This was dilated and released successfully with the endoscopic with increased space within the tunnel. The antebrachial fascia was released proximally freeing the median nerve at the wrist. Procedure Description: Kelly was greeted in the preoperative holding area where the correct side was identified and marked. The consent was reviewed with the patient and signed. The history and physical was updated. All questions were answered. She was taken back to the operating room. The patient was placed into the supine position on the operating room table with the left arm on an arm board. A nonsterile tourniquet was placed high onto the arm. All bony prominences were well padded. Prophylactic antibiotics in the form of Cefazolin were administered. The left arm was then prepped with Chloraprep and draped in a standard fashion with stockinette and extremity drape. A timeout to confirm correct identity, side and site, procedure, allergies, anesthesia, and medical concerns was performed. The surgical site was marked in the volar wrist creases in line with the radial border of the fourth ray. This area was anesthetized with approximately 6cc of 1% Lidocaine. The limb was then exsanguinated with an Esmarch. The skin was incised with a 15 blade, approximately 1cm. The skin only was cut and the deeper tissue was dissected bluntly with a tenotomy scissor, avoiding passing nerve and venous structures. The fascia was penetrated and opened bluntly. A two-prong skin hook was placed under this proximal fascial edge. A series of hamate finders were used to identify and dilate the carpal tunnel. Synovial elevator was used to free synovial attachments to the underside of the transverse carpal ligament. My thumb was kept in the palm to pan the distal extent of the carpal tunnel and correctly position the hand. The Microaire end oscope was inserted without difficulty and without resistance. Excellent visualization showed horizontally running fibers of the transverse carpal ligament (TCL). The distal extent of the TCL was visualized and the end of the scope palpated with the thumb. The blade was elevated and withdrawn from distal to proximal. The TCL was split into two flaps. The endoscope was reinserted to confirm complete release and any remnant ligament was incised. The scope was withdrawn and the proximal aspect of the carpal tunnel was grossly inspected and appeared release with the median nerve visible. The antebrachial fascia at the level of the wrist was then freed from the overlying skin and then the underlying median nerve with blunt dissection. This was transected longitudinally for about 3cm proximal to the wrist incision. The wound was then irrigated with easy flow of irrigant distally and proximally. The incision was closed with a single 4-0 Nylon suture. The wound was dressed with Xeroform, Gauze, Kerlix and Antonio. The tourniquet was deflated with the initial dressing and held with some pressure. Blood flow returned easily to all digits with capillary refill less than 2 seconds. The patient tolerated the procedure well and was returned to the Same Day Surgery area in a stable condition suffering no known complication.
[2023-02-02 10:02] VITALS: BP 97/59; PULSE 70; RESP 16; TEMP 36.5; O2SAT 93
--- NOTE | 2023-02-02 12:32 | W.ANESPOSTOP ---
Postoperative Evaluation Date, Time and Location Date Performed: 02/02/23 Time Performed: 10:20 Patient Location: Day Surgery Unit Vital Signs Most Recent Imported Vital Signs: Most Recent Vital Signs Temp Pulse Resp BP Pulse Ox 36.5 C 70 16 97/59 L 93 02/02/23 10:02 02/02/23 10:02 02/02/23 10:02 02/02/23 10:02 02/02/23 10:02 Pain Score Most Recent Pain Score: Most Recent Pain Score Pain Level 0 02/02/23 10:02 Assessment Mental Status: Awake (Alert & Oriented to Patient Baseline) Airway and Respiratory Function: Patent airway with normal (patient baseline) respiratory exam Cardiovascular Function: Hemodynamically Stable Hydration Status: Adequately Hydrated Nausea & Vomiting: No Nausea or Vomiting Pain: Pt. Denies Any Pain Peripheral Nerve Block: Patient did not receive a nerve block
== END 2023-02-02 10:43 | disposition home or self-care (01) ==
PROVIDERS: PCP Family Medicine; Visit Provider Student in an Organized Health Care Education/Training Program
PROC: 01N54ZZ Release Median Nerve, Percutaneous Endoscopic Approach (ICD-10-PCS; CPT 29848; principal; 2023-02-02 09:45)
DX: G56.02 Carpal tunnel syndrome, left upper limb (principal)
CPT/HCPCS: 29848; J0690; J2704

== ENCOUNTER → 2023-02-11 08:55 | Outpatient (BNVA) | payer MEDICARE, SELFPAY | PROVIDERS: PCP Family Medicine; Referring Provider Family Medicine; Visit Provider Physician Assistant | DX: Z47.89 Encounter for other orthopedic aftercare (principal); R60.0 Localized edema ==

== ENCOUNTER 2023-05-10 03:15 | Outpatient (CLI) | payer MEDICARE, SELFPAY ==
[2023-05-10 12:57] LABS: ALT 16 U/L (14-59); AST 14 U/L (15-37); Albumin 3.7 g/dL (3.4-5.0); Alkaline Phosphatase 97 U/L (46-116); Anion Gap 7.6 mmol/L (3-11); BUN 20 mg/dL (7-18); Bilirubin, Total 0.4 mg/dL (0.2-1.0); CO2 34.4 mmol/L (21.0-32.0); CREATININE 1.3 mg/dL (0.55-1.02); Chloride 101 mmol/L (98-107); Estimated GFR 41.31 (mL/min/1.73m2); Glucose 91 mg/dL (74-106); Potassium 3.4 mmol/L (3.5-5.1); Sodium 143 mmol/L (136-145); TSH (W/Ref FT4) 0.52 uIU/mL (0.36-3.74); Total Protein 7.9 g/dL (6.4-8.2)
== END 2023-05-10 03:16 | disposition home or self-care (01) ==
LOC: LBO 03:15
PROVIDERS: PCP Family Medicine; Visit Provider Family Medicine
DX: E03.9 Hypothyroidism, unspecified (principal); R60.0 Localized edema
CPT/HCPCS: 36415; 80053; 84443

== ENCOUNTER → 2023-06-06 10:44 | Outpatient (BNVA) | payer MEDICARE, SELFPAY | PROVIDERS: PCP Family Medicine; Referring Provider Family Medicine | DX: M65.352 Trigger finger, left little finger (principal) | CPT/HCPCS: 99213 ==

== ENCOUNTER 2023-06-21 06:14 | Day surgery (SDC) | payer MEDICARE, SELFPAY ==
[2023-06-21 06:30] VITALS: BP 159/60; PULSE 75; RESP 18; TEMP 36; O2SAT 97
--- NOTE | 2023-06-21 07:18 | W.PM.DSUDISC ---
Date of service: 06/21/23 Time of Service: 07:19 Discharge Plan Disposition Patient Disposition: Home Condition: Good Discharge Details Reason For Visit: Left little finger trigger finger Attending Provider: Andres Cast Primary Care Provider: Poly Copeland Home Meds and New Rx's Prescriptions: Continued [id number]-wndp-jna-wyjh-sss 600 mg calcium- 800 unit-50 mg tablet 1 tab PO DAILY cholecalciferol (vitamin D3) 1,000 unit capsule 1,000 unit PO DAILY omeprazole 20 mg capsule,delayed release(DR/EC) 20 mg PO DAILY Qty: 90 3RF Shingrix (PF) 50 mcg/0.5 mL suspension for reconstitution 0.5 ml IM ONCE Qty: 1 1RF Rx Instructions: as a single dose. Repeat in 2 months levothyroxine 75 mcg tablet 75 mcg PO DAILY Qty: 90 6RF aspirin [Aspirin Low-Strength] 81 MG tablet,chewable 81 mg PO DAILY polyethylene glycol 3350 [Miralax] 527 GM powder 17 g PO .QOD PRNQty: 3 albuterol sulfate 90 mcg/actuation HFA aerosol inhaler 2 puff INHALATION QID PRN (Reason: shortness of breath or wheezing) Qty: 3 4RF fesoterodine [Toviaz] 8 mg tablet extended release 24 hr 8 mg PO DAILY Qty: 90 5RF Trelegy Ellipta 100-62.5-25 mcg blister with device 1 inh inhalation DAILY Qty: 180 4RF Rx Instructions: please dispense 3 months torsemide 20 mg tablet See Rx Instructions PO BID Qty: 90 7RF Rx Instructions: 2 tabs am and 1 tab early PM orally twice a day; potassium chloride 20 mEq tablet,ER particles/crystals 20 meq PO BID Qty: 180 4RF acetaminophen 500 mg tablet 1,000 mg PO TID Qty: 90 0RF ibuprofen 600 mg tablet 600 mg PO TID PRN (Reason: pain) Qty: 90 0RF multivitamin [Daily Multiple] 1 EACH tablet 1 ea PO DAILY Discharge Instructions Stand Alone Forms: [employer] Finger Release Referrals: Andres Cast MD [ [facility] STAFF PHYSICIAN] - Activity:: Elevate Remove Dressings/Wound Care:: 48 hours Shower/Bathe:: 48 hours Diet:: As Tolerated Discharge Orders Discharge Orders: Discharge Order (Routine); Ordered 06/21/23 Ordered By: Magda Suarez
[2023-06-21] MEDS: Sodium Bicarbonate 50 MEQ/50 ML VIAL (07:32)
[2023-06-21] MEDS: Lidocaine 1% Pres-Free W/EPI 1/200,000 30 ML VIAL (07:32)
[2023-06-21 07:40] VITALS: BP 150/60; PULSE 74; RESP 16; TEMP 36.5; O2SAT 97
--- NOTE | 2023-06-21 07:42 | ROE_ITS ---
Date of service: 06/21/23 Time of Service: 07:43 Operative Note Operative Note DATE OF PROCEDURE: 06/21/23 PRE-OP DIAGNOSIS: Left Little Finger Trigger Finger POST-OP DIAGNOSIS: same PROCEDURE: Trigger Finger Release - Left Little Finger SURGEON: Andres Cast ANESTHESIA TYPE: Local By Surgeon Refer to Anesthesia Record ESTIMATED BLOOD LOSS: 0 PATHOLOGY: none sent COMPLICATIONS: None Patient was transported to: same day Patient's condition: stable Indications: I have seen Naila in clinic for symptoms of a trigger finger. The catching, cl icking, locking, and pain limited function. The diagnosis of trigger finger was evident. The symptoms had not responded to conservative measures. I discussed trigger finger release with the patient. I reviewed the risks of the procedure to include, but not limited to, bleeding, infection, pain, stiffness, incomplete release, damage to nerves or vessels, continued catching, recurrence. Despite these risks, the patient elected to proceed. Findings: There was a tightened A1 aaron which was released. The flexor tendons were inspected and the patient was able to move the finger without any catching, clicking, or locking. Procedure Description: Naila was greeted in the preoperative holding area where the correct side was identified and marked. The consent was reviewed with the patient and signed. All questions were answered. She was taken back to the operating room. The patient was placed into the supine position on the operating room table with the left arm on an arm board. All bony prominences were well padded. No prophylactic antibiotics were administered since this was a clean, elective hand surgical case. The [LATERALITY] arm was then prepped with Chloraprep and draped in a standard fashion with stockinette and extremity drape. A timeout to confirm correct identity, side and site, procedure, allergies, anesthesia, and medical concerns was performed. The surgical site was marked as a longitudinal incision directly over the A1 aaron of the involved digit. This was confirmed with palpation during finger flexion. This area, overlying the metacarpal head, was then anesthetized with 1% Lidocaine. The patient tolerated this well and once the anesthetic had setup, the procedure began. A longitudinal incision was made through skin only, approximately 1cm. The deep tissues were dissected bluntly. Once the A1 aaron and flexor tendons were identified the soft tissue including neurovascular structures were retracted medially and laterally. There were no crossing structures over the A1 aaron. The proximal edge of the aaron was identified and the aaron was incised with tenotomy scissors. There was a release of the tendons once this was fully released. The patient was asked to move the finger into deep flexion and back to extension. There was no recreation of the pre-operative symptoms. The hand was then once more inspected for any A0 aaron or area of possible constriction. The wound was then irrigated and the skin was closed with a 4-0 Nylon. This was dressed with gauze and a Conform dressing. The patient tolerated the procedure well and was returned to the Same Day Surgery area in a stable condition suffering no known complication.
== END 2023-06-21 07:52 | disposition home or self-care (01) ==
PROVIDERS: PCP Family Medicine; Visit Provider Student in an Organized Health Care Education/Training Program
PROC: (CPT 26055; principal; 2023-06-21 07:30)
DX: M65.352 Trigger finger, left little finger (principal)
CPT/HCPCS: 26055

== ENCOUNTER → 2023-07-01 09:57 | Outpatient (BNVA) | payer MEDICARE, SELFPAY | PROVIDERS: PCP Family Medicine; Referring Provider Family Medicine | DX: Z47.89 Encounter for other orthopedic aftercare (principal); M79.642 Pain in left hand; G56.02 Carpal tunnel syndrome, left upper limb ==

== ENCOUNTER → 2023-10-13 02:03 | Outpatient (CLI) | payer MEDICARE, SELFPAY | PROVIDERS: PCP Family Medicine; Visit Provider Family Medicine | DX: I10 Essential (primary) hypertension (principal); I77.810 Thoracic aortic ectasia | CPT/HCPCS: 93306 ==

== ENCOUNTER 2024-01-03 04:30 | Outpatient (CLI) | payer MEDICARE, SELFPAY ==
[2024-01-03 14:30] LABS: ALT 19 U/L (14-59); AST 16 U/L (15-37); Albumin 3.4 g/dL (3.4-5.0); Alkaline Phosphatase 111 U/L (46-116); Anion Gap 11.9 mmol/L (3-11); BUN 18 mg/dL (7-18); Bilirubin, Total 0.3 mg/dL (0.2-1.0); CO2 29.1 mmol/L (21.0-32.0); CREATININE 1.3 mg/dL (0.55-1.02); Chloride 103 mmol/L (98-107); Estimated GFR 41.31 (mL/min/1.73m2); Glucose 144 mg/dL (74-106); Potassium 3.5 mmol/L (3.5-5.1); Sodium 144 mmol/L (136-145); TSH (W/Ref FT4) 0.56 uIU/mL (0.36-3.74)
== END 2024-01-03 04:31 | disposition home or self-care (01) ==
LOC: LBO 04:30
PROVIDERS: PCP Family Medicine; Visit Provider Family Medicine
DX: I10 Essential (primary) hypertension (principal); E03.9 Hypothyroidism, unspecified
CPT/HCPCS: 36415; 80053; 84443

== ENCOUNTER 2024-01-16 05:28 | Outpatient (CLI) | payer MEDICARE, SELFPAY ==
[2024-01-16] MEDS: Levalbuterol HFA 15 GM INH 4 PUFF IH (17:09)
[2024-01-16] MEDS: Inhaler, Assist Device 1 EACH MC (17:09)
--- NOTE | 2024-01-17 09:41 | W.PFT ---
Date of service: 01/16/24 Time of Service: 15:02 Pulmonary Function Test Result Indications: COPD Interpretation Spirometry: There is moderate airflow limitation. Significant bronchodilator response. Lung Volumes: There is air trapping Diffusion Capacity: Decreased diffusion Airway Pressure: Increased airways resistance Impression Moderate airflow obstruction with a bronchodilator response, and decreased diffusion. This may represent COPD with emphysema or asthma-COPD overlap syndrome. Clinical Correlation therefore is recommended.
== END 2024-01-16 05:29 | disposition home or self-care (01) ==
LOC: RT 05:28
PROVIDERS: PCP Family Medicine; Visit Provider Family Medicine
DX: J44.9 Chronic obstructive pulmonary disease, unspecified (principal)
CPT/HCPCS: 94060; 94726; 94729

== ENCOUNTER → 2024-01-20 00:20 | Outpatient (CLI) | payer MEDICARE, SELFPAY ==
--- NOTE | 2024-01-20 08:15 | DI.CT_ITS ---
Exam(s) CT CHEST W EXAM: CT CHEST W CLINICAL HISTORY: SOB, worsening COPD J43.9 EMPHYSEMA TECHNIQUE: Imaging Protocol: Axial computed tomography images with coronal and sagittal reformatted images were created and reviewed CONTRAST MATERIAL: Intravenous: Omnipaque 350 Contrast volume:structured data ml. COMPARISON: CT CT CHEST/ABD/PEL W from 06/25/[address] CHEST/ABD/PEL W from 06/25/2022 CR XR CHEST 2V PA LATERAL from 09/21/2022 FINDINGS: Pulmonary parenchyma: No consolidation. No dominant measurable mass. Moderate emphysematous changes in the upper lobes. No significant interstitial changes. Stable small peripheral nodules, less than 5 millimeter in size. No suspicious nodule or suspicious mass. Tracheobronchial tree: No bronchiectasis or mucous plugging. Mediastinum and Dari: No dominant adenopathy or fluid collection. Pleura: No effusion. No pneumothorax. Heart: The heart is not dilated. Mild coronary artery calcifications are seen. Mitral valve is heavil y calcified. Aorta: Thoracic aorta non-dilated. Mild to moderate atherosclerotic changes. Upper abdomen: No acute findings. Status post cholecystectomy.. Bones: Degenerative changes in the spine. Soft tissues: Unremarkable. IMPRESSION: Moderate emphysematous changes in the upper lobes. No acute abnormality. RADIATION DOSE DELIVERED: Total DLP DATA REPOSITORY: All CT scans at this facility are submitted to the National Radiology Data Registry (NRDR) Dose Index Registry (DIR) with the [employer] (ACR). RADIATION OPTIMIZATION: All CT scans at this facility use at least one of these dose optimization te chniques: automated exposure control; mA and/or kV adjustment per patient size (includes targeted exa ms where dose is matched to clinical indication); or iterative reconstruction.
[2024-01-20] MEDS: Normal Saline - Diluent 50 ML VIAL IJ (15:18)
[2024-01-20] MEDS: Omnipaque 350 MG/ML 100 ML BTL IJ (15:19)
== END ==
PROVIDERS: PCP Family Medicine; Visit Provider Family Medicine
DX: R06.02 Shortness of breath (principal); J43.8 Other emphysema; J44.9 Chronic obstructive pulmonary disease, unspecified
CPT/HCPCS: 71260; J3490

== ENCOUNTER → 2024-01-31 09:12 | Outpatient (BNVA) | payer MEDICARE, SELFPAY | PROVIDERS: PCP Family Medicine; Referring Provider Family Medicine; Visit Provider Student in an Organized Health Care Education/Training Program | DX: J43.9 Emphysema, unspecified (principal); J96.91 Respiratory failure, unspecified with hypoxia; Z87.891 Personal history of nicotine dependence | CPT/HCPCS: 94618; 99205 ==

== ENCOUNTER 2024-02-03 02:41 | Outpatient (CLI) | payer MEDICARE, SELFPAY ==
--- NOTE | 2024-02-10 11:10 | W.NOCTURNAL ---
Date of service: 02/05/24 Time of Service: 20:50 Nocturnal Oximetry Note: Overnight Oximetry Amount of time analyzed: 8 hours 47 min on 2LPM O2 Number of minutes under 88%: 358.3 DENISE: 3.8 Appearance of oxygen saturation pattern: sharp and gradual decreases indicating possible MARTHA and cardiopulmonary disease Recommendation: Recommend sleep study Vanessa Nguyen MD Pulmonary & Critical Care Medicine
== END 2024-02-03 02:42 | disposition home or self-care (01) ==
LOC: RT 02:41
PROVIDERS: PCP Family Medicine; Visit Provider Student in an Organized Health Care Education/Training Program
DX: J96.91 Respiratory failure, unspecified with hypoxia (principal)
CPT/HCPCS: 94762

== ENCOUNTER → 2024-03-29 09:36 | Outpatient (BNVA) | payer MEDICARE, SELFPAY | PROVIDERS: PCP Family Medicine; Referring Provider Family Medicine; Visit Provider Student in an Organized Health Care Education/Training Program | DX: M65.342 Trigger finger, left ring finger (principal) | CPT/HCPCS: 20550; J1010 ==

== ENCOUNTER → 2024-05-01 09:43 | Outpatient (BNVA) | payer MEDICARE, SELFPAY | PROVIDERS: PCP Family Medicine; Referring Provider Family Medicine; Visit Provider Physician Assistant Surgical | DX: J43.9 Emphysema, unspecified (principal); J96.91 Respiratory failure, unspecified with hypoxia; Z87.891 Personal history of nicotine dependence | CPT/HCPCS: 99214 ==

== ENCOUNTER 2024-09-11 10:53 | Outpatient (CLI) | payer MEDICARE, SELFPAY ==
--- NOTE | 2024-09-11 10:30 | DI.RAD_ITS ---
Exam(s) XR CHEST 2V PA LATERAL EXAM: XR CHEST 2V PA LATERAL CLINICAL HISTORY: evaluate pneumonia, cough, r05.9. TECHNIQUE: 2D digital imaging was performed. COMPARISON: CR XR CHEST 2V PA LATERAL from 09/21/2022 FINDINGS: 2 views: Heart size is normal. The mediastinum is not widened. Lungs are clear. No infiltrates nor pleural effusions. IMPRESSION: No acute pulmonary findings. DATA REPOSITORY: RADIATION DOSE DELIVERED:
--- OUTSIDE RECORDS SUMMARY | 2024-09-11 10:56 | XMS_ITS | Encounter Summary ---
Author Organization [facility] Address [facility] [place] [address] Care Team Providers Care Glass Block Installer Name Role Phone Poly Copeland MD Primary Care Provider [phone] Reason for Visit * Consultation (Routine) - Specialty Diagnoses / Procedures Referred By Contac t Referred To Contact Hematology and Oncology Diagnoses Breast cancer s/p r br mastec on 5.25 c/w PT and KMR Procedures [facility] Poly Copeland MD [address] [place] [address] Mariano Manuel MD [facility] [address] HEMATOLOGY/[place] [address] Referral ID Status Reason Start Date Expiration Date V isits Requested Visits Authorized [id number] 04/05/2018 04/05/2019 1 1 Encounter Details Date Type Department Care Team (Late st Contact Info) Description 04/14/2018 12:00 PM EDT Office Visit Hematology/Oncology at [address] [phone] Mary Duque, BRANCH ACCOUNT EXECUTIVE [address] [facility] [place] [address] Malignant neoplasm of right breast in female, estrogen receptor positive, unspecified site of breast; Malignant neoplasm of ascending colon; High risk medication use Social History Tobacco Use Types Packs/Day Years Used Date Smoking Tobacco: Former Smokeless Tobacco: Never Comments:quite 17 years ago Sex and Gender Information Value Date Recorded Sex Assigned at Not on file Gender Identity Female 10/25/2020 5:11 AM EST Sexual Orientation Not on file documented as of this encounter Last Filed Vital Signs Vital Sign Reading Time Taken Comments Blood Pressure 142/55 04/14/2018 12:11 PM EDT Pulse 68 04/14/2018 12:11 PM EDT Temperature 36.3 ??C (97.3 ??F) 04/14/2018 12:11 PM E DT Respiratory Rate 16 04/14/2018 12:11 PM EDT Oxygen Saturation 98% 04/14/2018 12:11 PM EDT Inhaled Oxygen Concentration - - Weight 98 kg (216 lb) 04/14/2018 12:11 PM EDT Height 162 cm (5' 3.78) 04/14/2018 12:11 PM EDT Body Mass Index 37.33 04/14/2018 12:11 PM EDT documented in this encounter Progress Notes * Mary Duque, BRANCH ACCOUNT EXECUTIVE - 04/14/2018 12:00 PM EDT Subjective: Patient ID: Kelly Strickland is a 78 y.o. female. Problem List: 1. Colon cancer, pT4a, pN1a, M0 A. Presented with abdominal pain, nausea and vomiting 01/23/17 CT a/p - Rotated and distended cecum suspicious for a cecal volvulus. The ileocecal valve and appendix are seen in the LUQ. Question of thickening of the wall of the ascending colon. This may represent inflammatory, infectious or neoplastic process. B. 01/23/17 - Right hemicolectomy Path ([facility] [place] - CONSULTATION CASE Outside slide(s) labeled [id number], collection date 01/23/2017. Ascending colon, cecum, terminal ileum and appendix, right hemicolectomy: Invasive moderately to poorly differentiated adenocarcinoma of ascending colon, stage pT4a N1a, seesynoptic report. Appendix, negative for carcinoma. Synoptic report Specimen Parts: ?? A Specimen ?Specimen: ??Terminal ileum, Cecum, Appendix, Ascending colon ?Procedure: ??Right hemicolectomy ?Macroscopic Intactness of Mesorectum: ?Not applicable Tumor ?Primary Tumor Site: ?? Right (ascending) colon ?Histologic Type: ?? Adenocarcinoma ?Histologic Grade: ?? High-grade (poorly differentiated to undifferentiated) ? Specify: ??Moderately to poorly differentiated ?Tumor Size: ?? 6.3 x 6.0 x 0.3 cm ?Tumor Deposits: ?? Not identified ?Multiple Primary Sites: ?? No additional site(s) present ?Tumor Extent ? Site(s) of Direct Extent of Tumor: ?Right (ascending) colon ? Microscopic Tumor Extension: ?? Tumor penetrates to the surface of the visceral peritoneum (serosa) ? Macroscopic Tumor Perforation: ?? Not Identified ?Accessory Tumor Findings ? Lymph-Vascular Invasion: ?? Present ?Type of Lymph-Vascular Invasion: ?? Small vessel lymph- vascular invasion ? Histologic Features Suggestive of Microsatellite Instability ?Intratumoral Lymphocytic Response (tumor-infiltrating lymphocytes): Marked (3 or more per high-power field) ?Peritumor Lymphocytic Response (Crohn-like response): ?Mild to moderate ?Tumor Subtype and Differentiation: ?? High histologic grade (poorly differentiated) ? Perineural Invasion: ?? Present ? Treatment Effect: ?? Not known Margins ?Proximal Margin: ?? Uninvolved by invasive carcinoma ?Distal Margin: ?? Uninvolved by invasive carcinoma ?Circumferential (Radial) Margin: ?Uninvolved by invasive carcinoma ? Distance of Tumor from Margin: ?? 8.3 cm ?Mesenteric Margin: ?? Not applicable Lymph Nodes ?Number of Lymph Nodes Examined: ?14 ?Number of Lymph Nodes Involved: ?1 Stage (pTNM) ?Primary Tumor (pT): ?? pT4a: Tumor penetrates the visceral peritoneum ?Regional Lymph Nodes (pN): ?? pN1a: Metastasis in 1 regional lymph node ?Per outside report, the closest margin is radial margin (8.3 cm away from tumor). Thesubmitted outside immunostains show loss of nuclear staining for ? MLH1 and PMS2, while retention of nuclear staining for MSH2 and MSH6 in the tumor cells. CLINICALLY ACTIONABLE VARIANTS: BRAF: ??MUTATION c.1799T >A p.V600E Exon 15 HRAS: ??NEGATIVE KRAS: ??NEGATIVE NRAS: ??NEGATIVE C. Post-op course complicated by bonifacio-hepatic abscess, requiring drain placement D. CT chest 03/24/17 - no evidence of metastatic disease COPD Solitary 1.[address] in superior mediastinum E. Adjuvant therapy with Folfox started 03/30/17, s/p 9 cycles Oxaliplatin dose reduced for cycle 2 due to headaches and jaw pain Cycle 3 delayed due to headaches Stopped therapy after cycle 9 due to cumulative toxicity. Last cycle given 08/09/[address] c/a/p 09/08/17 - Impression: No evidence of metastatic disease involving the chest, abdomen or pelvis. 2. 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 Screening mammogram in January, revealed a 5mm asymmetry at 10:00 in the right breast. Call backs and u/s confirmed a solid mass. Biopsy revealed IDC which is strongly ER/IL+ and her2-. ??No otherlesions were noted in either breast. ?? Naila opted for mastectomy and sentinel node excision: ?? Procedure: Total mastectomy Specimen Laterality: Right Tumor Histologic Type: Invasive ductal carcinoma Histologic Grade (Karissa Histologic Score) Glandular (Acinar) / Tubular Differentiation: Score 3 Nuclear Pleomorphism: Score 2 Number of Mitoses per 10 High-Power Cedillo: 9 mitotic figures Mitotic Rate: Score 2 Overall Grade: Grade 2 (scores of 6 or 7) Tumor Size: 6 Millimeters (mm) Tumor Focality: Single focus of invasive carcinoma Ductal Carcinoma In Situ (DCIS): DCIS is present in specimen Ductal Carcinoma In Situ (DCIS): Negative for extensive intraductal component (EIC) Architectural Patterns: Solid Nuclear Grade: Grade II (intermediate) Necrosis: Present, focal (small foci or single cell necrosis) Tumor Extent Skin: Invasive carcinoma does not invade into the dermis or epidermis Nipple DCIS: DCIS does not involve the nipple epidermis Skeletal Muscle: No skeletal muscle is present Accessory Findings Lymphovascular Invasion: Not identified Microcalcifications: Present in non-neoplastic tissue Treatment Effect: No known presurgical therapy Margins DIAGNOSIS Invasive Carcinoma Margins: Uninvolved by invasive carcinoma Distance from Posterior Margin: 8 Millimeters (mm) DCIS Margins: Uninvolved by DCIS Distance from Other Specified Margin: All margins >10 Millimeters (mm) Lymph Nodes Number of Lymph Nodes with Macrometastases (> 2 mm): 0 Number of Lymph Nodes with Micrometastases (> 0.2 mm to 2 mm and / or > 200 cells): 0 Number of Lymph Nodes with Isolated Tumor Cells (<= 0.2 mm and <= 200 cells): 0 Number of Mina Nodes Examined: 2 Pathologic Stage Classification (pTNM, AJCC 8th Edition) Primary Tumor (Invasive Carcinoma) (pT): pT1b Regional Lymph Nodes (pN) Modifier: (sn): Only sentinel node(s) evaluated. Category (pN): pN0 Tumor Block(s): A3 2016 AJCC 8th Edition CAP Annual Release ER, IL, and HER2 studies (performed on prior biopsy, [id number]): ER: Positive (>90%, strong) IL: Positive (>90%, strong) HER2 FISH: Negative 3. HTN 4. COPD 5. S/p cholecystectomy 4. S/p hysterectomy 5. S/p bilateral TKA HPI Ms. Strickland is seen in f/u of stage III colon cancer. The history is summarized above. On 03/30/17, she began adjuvant therapy with Folfox. Cycle 1 was complicated by severe jaw pain with chewing and headaches. As a result, the oxaliplatin dose was reduced by 50% with cycle 2. The jaw pain improved but the headaches have been a persistent and significant issue. An MRI was done on 04/28 and showed minimal white matter changes consistent with microvascular ischemic disease and was otherwise negative. She was seen by Dr. Ambrose in Neuro-Oncology on 05/10. It was felt possible that the chemotherapy was the initial trigger for the headache and that she then developed a medication overuse headache due to daily NSAID use. She was given a prescription for amytriptyline and naproxen. The dose of amytriptyline has been increased to 50 mg per day. On presentation today, she is by herself. Her appetite is good and her weight is stable. Her bowelsare regular with no melena or BRBPR. She feels wonderful and is asymptomatic. She had a mastectomy on 03/17 for a Stage 1 6mm breast CA that was ER/IL+ and [id number]. She had a second mastectomy which was uneventful and has healed well. Soc Hx: , lives alone in [place], [place] Tob - Quit 17 years ago Etoh - None [employer] Fam Hx: Father - at age 81, heart disease, ischemic bowel Mother - at 71, colon cancer, COPD Sibs - 3 sisters, 2 in good health, 1 with COPD. No cancer Children - 3 sons, all in good health Review of Systems Constitutional: Negative for activity change, appetite change, fatigue, fever and unexpected weightchange. HENT: Negative for mouth sores. Cardiovascular: Negative. Gastrointestinal: Negative. Genitourinary: Negative. Musculoskeletal: Negative. Skin: Negative. Neurological: Negative. Negative for numbness. Hematological: Negative. Psychiatric/Behavioral: Negative. BP 142/55 (Patient Position: Sitting) Pulse 68 Temp 36.3 ??C (97.3 ??F) (Oral) Resp 16 Ht 162 cm (5' 3.78) Wt 98 kg (216 lb) SpO2 98% BMI 37.33 kg/m2 Wt Readings from Last 3 Encounters: 04/14/18 98 kg (216 lb) 04/05/18 99.3 kg (219 lb) 03/17/18 92.5 kg (204 lb) Objective: Physical Exam Constitutional: She is oriented to person, place, and time. She appears well- developed and well-nourished. No distress. HENT: Head: Normocephalic and atraumatic. Mouth/Throat: Oropharynx is clear and moist. No oropharyngeal exudate. Eyes: No scleral icterus. Cardiovascular: Normal rate and regular rhythm. Pulmonary/Chest: Effort normal. No respiratory distress. She has no wheezes. She has no rales. Abdominal: Soft. She exhibits no distension and no mass. There is no tenderness. There is no guarding. Musculoskeletal: She exhibits no edema. Lymphadenopathy: She has no cervical adenopathy. She has no axillary adenopathy. Right: No supraclavicular adenopathy present. Left: No supraclavicular adenopathy present. Neurological: She is alert and oriented to person, place, and time. Coordination normal. Skin: Skin is warm and dry. No rash noted. No erythema. Mastectomy scar on the R is well healed. Psychiatric: She has a normal mood and affect. Her behavior is normal. Vitals reviewed. Labs: 03/31/18 CBC: WBC 7.36 hemoglobin 12.6 platelets 232 CMP sodium 142 potassium 3.8 BUN 21 creatinine 1.06 glucose 95 calcium 8.5 total bilirubin 0.2 AST 15 ALT 19 alk phos 70 total protein 7.2 albumin 3.1 CEA: 03/31/18 1.5 12/30/17 0.9 09/08/17 0.8 05/27/17 <0.5 04/28/17 1.0 03/18/[address]: 03/29/18 CT CAP-unchanged pretracheal 13 mm node from 09/08/17. There is also a stable 16 mm leftpara-aortic node unchanged from 08/2017. Conclusion: No evidence of metastatic disease in a patient with history of colon carcinoma. Assessment and Plan: Ms. Strickland is a 77 yo female diagnosed with adenocarcinoma of the ascending colon in early 02/07 after presenting with abdominal pain, nausea and vomiting. On 01/23/17 she underwent a right hemicolectomy. The pathology report is above, high grade adenocarcinoma with 1/ LN's involved, margins negative. CT showed no evidence of metastatic disease. 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 ?? On 03/30/17, she began adjuvant therapy with Folfox and received 9 cycles, the last given on 08/11/17. Therapy was stopped at that point due to cumulative toxicity, including neuropathy. The CT done on 09/08/17, showed no evidence of metastatic disease. Clinically, she is doing well. CT scans will be done every 6 months for the first two years, then annually out to 5 years, unless needed sooner based on clinical assessment. She is already scheduled for a colonoscopy on 05/12. From abreast cancer perspective, will plan to get a dexa scan and lipid panel and she will RTC in 2- 3wks to speak with Dr. Del Toro regarding use of an AI as adjuvant therapy for her breast cancer. She does not want to use Tamoxifen as she is very worried about potential for stroke. Info on Arimidex was given to her today and s/e reviewed. She will return for a discussion with Dr. Del Toro. Mary Duque, MSN, HAMMERER TAB, AOCN Hematology/Oncology Nurse Practitioner [place], [place] [phone] documented in this encounter Plan of Treatment Not on file documented as of this encounter Visit Diagnoses Diagnosis Malignant neoplasm of right breast in female, estrogen receptor positive, unspecified site of breast Malignant neoplasm of ascending colon High risk medication use Encounter for long-term (current) use of other medications documented in this encounter Care Teams Glass Block Installer Relationship Specialty Start Date End Date Poly Copeland MD [address] [place] [address] PCP - General 09/15/10 documented as of this encounter
--- OUTSIDE RECORDS SUMMARY | 2024-09-11 10:56 | XMS_ITS ---
Author Organization [facility] Address [facility] [place] [address] Care Team Providers Care Monument Stonecutter Name Role Phone Poly Copeland MD Primary Care Provider [phone] Active Problems Problem Noted Date Diagnosed Date Malignant neoplasm of right breast in female, estrogen receptor positive 03/01/2018 Headache, chronic daily 05/10/2017 Malignant neoplasm of ascending colon 03/04/2017 Breast cancer in situ 10/27/2011 Current Oncology Plans No current plan information found. Past Plans ADULT TREATMENT Plan Name Start Date Discontinue Date Treatment Medications Discontinue Reason Plan Provider Cycles DH BCN AMB ONC GI COLORECTAL CANCER - FOLFOX-6 (14 DAY) 7 09/30/2017 fluorouraciL (ADRUCIL)fluorouraciL (AdruciL) in sodium chloride 0.9% 138 mL infusion (46 Hour - For Home Use)leucovorin (Wellcovorin) in dextrose 5% or sodium chloride 0.9% for infusionOXALIplatin (Eloxatin) in dextrose 5% 250 mL infusionPump Disconnect: Home Infusion Therapy Complete Raffi Del Toro MD 9 of 12 cycles started Radiation Treatments * No radiation treatments are documented for this patient in [facility]. Treatments may have been administered in another system.
--- OUTSIDE RECORDS SUMMARY | 2024-09-11 10:56 | XMS_ITS | Encounter Summary ---
Author Organization [facility] [place] [address] Care Team Providers Care Orthopedic Shoe Maker Name Role Phone Poly Copeland MD Primary Care Provider [phone] Encounter Details Date Type Department Care Team (Late st Contact Info) Description 08/10/2018 1:30 PM EDT Office Visit Hematology/Oncology at [address] [phone] Mary Duque, ARMHOLE FELLER HANDSTITCHING MACHINE [address] [facility] [place] [address] Carcinoma in situ of breast, unspecified laterality, unspecified type; Malignant neoplasm of ascending colon Social History Tobacco Use Types Packs/Day Years Used Date Smoking Tobacco: Former Smokeless Tobacco: Never Comments:quite 17 years ago Sex and Gender Information Value Date Recorded Sex Assigned at Not on file Gender Identity Female 10/25/2020 5:11 AM EST Sexual Orientation Not on file documented as of this encounter Last Filed Vital Signs Vital Sign Reading Time Taken Comments Blood Pressure 144/59 08/10/2018 1:36 PM EDT Pulse 83 08/10/2018 1:36 PM EDT Temperature 36.4 ??C (97.5 ??F) 08/10/2018 1:36 PM ED T Respiratory Rate 16 08/10/2018 1:36 PM EDT Oxygen Saturation 98% 08/10/2018 1:36 PM EDT Inhaled Oxygen Concentration - - Weight 99.3 kg (219 lb) 08/10/2018 1:36 PM EDT Height 162 cm (5' 3.78) 08/10/2018 1:36 PM EDT Body Mass Index 37.85 08/10/2018 1:36 PM EDT documented in this encounter Progress Notes * Mary Duque, ARMHOLE FELLER HANDSTITCHING MACHINE - 08/10/2018 1:30 PM EDT Subjective: Patient ID: Kelly Strickland is a 78 y.o. female. Problem List: 1. Cancer of the right breast, pT1b, N0, Int grade, ER/PA +, Her-2/odilon negative A. Right breast mammogram 01/25/18 ([facility] review) - IMPRESSION/recommendation: Right breast lesion 1 BI-RADS Category 0: Assessment incomplete. 0.6 cm mass 10:00 position 11 cm from the nipple. Recommend second look ultrasound to determine if this will get up graded to category4 and require biopsy Mammogram at [facility] 01/30/18 - IMPRESSION: Highly suspicious 0.7 cm mass associated with 2.5 cm area of fine linear pleomorphic calcificationsright breast 10:00 radian 9 cm from the nipple. Ultrasound-guided core biopsy is recommended. B. US guided bx of right breast mass 01/30/18 Path - Diagnosis: ??- Invasive ductal carcinoma with focal lobular features, intermediate grade. ? 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 ER immunoreactivity: Positive ( ??>90% cancer cells with immunostaining) Stain intensity: Strong PA immunoreactivity: Positive ( ??>90% cancer cells with immunostaining) Stain intensity: Positive NEGATIVE FOR HER2/ODILON AMPLIFICATION C. 03/17/18 - Simple mastectomy with SLN excision Path - DIAGNOSIS A - Right breast, mastectomy: 1. 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 Atypical lobular hyperplasia 4. Sclerosing adenosis, usual ductal hyperplasia, and apocrine metaplasia 5. Biopsy site changes B - Right axillary sentinel lymph node, excision: Two lymph nodes, no malignancy identified (0/2) Synoptic Report Specimen ?Procedure: ??Total mastectomy ?Specimen Laterality: ?? Right Tumor ?Histologic Type: ?? Invasive ductal carcinoma ?Histologic Grade (Hurley Histologic Score) ? Glandular (Acinar) / Tubular Differentiation: ?Score 3 ? Nuclear Pleomorphism: ?? Score 2 ? Number of Mitoses per 10 High-Power [place]: ?9 mitotic figures ? Mitotic Rate: ?? Score 2 ? Overall Grade: ?? Grade 2 (scores of 6 or 7) ?Tumor Size: ?? 6 Millimeters (mm) ?Tumor Focality: ?? Single focus of invasive carcinoma ?Ductal Carcinoma In Situ (DCIS): ?DCIS is present in specimen ? Ductal Carcinoma In Situ (DCIS): ?? Negative for extensive intraductal component (EIC) ? Architectural Patterns: ?? Solid ? Nuclear Grade: ?? Grade II (intermediate) ? Necrosis: ??Present, focal (small foci or single cell necrosis) ?Tumor Extent ? Skin: ??Invasive carcinoma does not invade into the dermis or epidermis ? Nipple DCIS: ??DCIS does not involve the nipple epidermis ? Skeletal Muscle: ?? No skeletal muscle is present ?Accessory Findings ? Lymphovascular Invasion: ?? Not identified ? Microcalcifications: ?? Present in non-neoplastic tissue ? Treatment Effect: ?? No known presurgical therapy Margins ?Invasive Carcinoma Margins: ?? Uninvolved by invasive carcinoma ? Distance from Posterior Margin: ?? 8 Millimeters (mm) ?DCIS Margins: ?? Uninvolved by DCIS ? Distance from Other Specified Margin: ?All margins >10 Millimeters (mm) Lymph Nodes ?Number of Lymph Nodes with Macrometastases ( ??> 2 mm): ?? 0 ?Number of Lymph Nodes with Micrometastases ( ??> 0.2 mm to 2 mm and / or ??> 200 cells): ??0 ?Number of Lymph Nodes with Isolated Tumor Cells ( ??<= 0.2 mm and ??<= 200 cells): 0 ?Number of Dundas Nodes Examined: ?2 Pathologic Stage Classification (pTNM, AJCC 8th Edition) ?Primary Tumor (Invasive Carcinoma) (pT): ?pT1b ?Regional Lymph Nodes (pN) ? Modifier: ??(sn): Only sentinel node(s) evaluated. ? Category (pN): ?? pN0 2. Colon cancer, pT4a, pN1a, M0 A. Presented with abdominal pain, nausea and vomiting 01/23/17 CT a/p - Rotated and distended cecum suspicious for a cecal volvulus. The ileocecal valve and appendix are seen in the LUQ. Question of thickening of the wall of the ascending colon. This may represent inflammatory, infectious or neoplastic process. B. 01/23/17 - Right hemicolectomy Path ([facility] review) - CONSULTATION CASE Outside slide(s) labeled [id number], collection date 01/23/2017. Ascending colon, cecum, terminal [...] Last cycle given 08/09/[address] c/a/p 03/31/18 - Impression: No evidence of metastatic disease in a patient with a history of colon carcinoma. 3. 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 No further therapy 4. HTN 5. COPD 6. S/p cholecystectomy 7. S/p hysterectomy 8. S/p bilateral TKA 9. Dexa scan 05/02/18 - Conclusion: Findings consistent with normal bone density. Lateral vertebral shows no evidence of a vertebral compression fracture. HPI Ms. Strickland is seen in f/u of stage III colon cancer and subsequent to initiation of adjuvant therapy for cancer of the right breast. The history is summarized above. She started having moderately severe hot flashes and mood swings as well as headaches and insomnia and stopped the femara about a month ago. A few weeks ago she started noticing that her right hip was painful. It worse when she is walking and worse when it is raining outside. She can take 2 Tylenol arthritis in the morning andthat the pain will ease off for a little bit. She thinks is arthritis but she is not sure. Otherwise she has no new symptoms to report, and all of the symptoms that she had on the Femara with the exception of hot flashes have resolved. Soc Hx: , lives alone in [place], [place] Tob - Quit 17 years ago Etoh - None Works [employer] Fam Hx: Father - at age 81, heart disease, ischemic bowel Mother - at 71, colon cancer, COPD Sibs - 3 sisters, 2 in good health, 1 with COPD. No cancer Children - 3 sons, all in good health Review of Systems Constitutional: Negative for activity change, appetite change, fatigue, fever and unexpected weightchange. HENT: Negative for mouth sores. Respiratory: Positive for shortness of breath (LONG, no change). Cardiovascular: Negative. Gastrointestinal: Negative. Genitourinary: Negative. Musculoskeletal: Positive for arthralgias (r hip). Skin: Negative. Neurological: Positive for numbness (tingling of fingers) and headaches (largely gone). Hematological: Negative. Psychiatric/Behavioral: Negative. BP 144/59 (Patient Position: Sitting) Pulse 83 Temp 36.4 ??C (97.5 ??F) (Oral) Resp 16 Ht 162 cm (5' 3.78) Wt 99.3 kg (219 lb) SpO2 98% BMI 37.85 kg/m?? Wt Readings from Last 3 Encounters: 08/10/18 99.3 kg (219 lb) 06/16/18 98.7 kg (217 lb 9.6 oz) 05/05/18 98.9 kg (218 lb) Objective: Physical Exam Constitutional: She is oriented to person, place, and time. She appears well- developed and well-nourished. No distress. HENT: Head: Normocephalic and atraumatic. Mouth/Throat: Oropharynx is clear and moist. No oropharyngeal exudate. Eyes: No scleral icterus. Cardiovascular: Normal rate and regular rhythm. Pulmonary/Chest: Effort normal. No respiratory distress. She has decreased breath sounds (throughout (COPD)). She has no wheezes. She has no [...] is warm and dry. No rash noted. Psychiatric: She has a normal mood and affect. Her behavior is normal. Vitals reviewed. Labs: 08/07/2018 CBC: WBC 6.52 hemoglobin 13.6 platelets 249 CMP: Sodium 142 potassium 4.0 BUN 15 creatinine 1.12 glucose 97 calcium 9.4 total bili 0.2 AST 17 ALT 23 alk phos 73 total protein 7.5 albumin 3.5 CEA: 08/07/2018 1.3 06/13/18 0.9 03/31/18 1.5 12/30/17 0.9 09/08/17 0.8 05/27/17 <0.5 04/28/17 1.0 03/18/17 <0.5 Assessment and Plan: Ms. Strickland is a 78 yo female seen in f/u of colon cancer and for management of a more recent diagnosis of breast cancer. A. Colon cancer: She was diagnosed with adenocarcinoma of the ascending colon in early 02/07 after presenting with abdominal pain, nausea and vomiting. On 01/23/17 she underwent a right hemicolectomy. The pathology report is above, high grade adenocarcinoma with 11/06 LN's involved, margins negative. CT showed no [...] toxicity, including neuropathy. The CT done on 03/31/18, showed no evidence of metastatic disease. Clinically, she is doing well. I will plan to recheck labs when I see her next month (in f/u of breast cancer) and will plan to repeatthe CT scan Around September. She had a colonoscopy scheduled on 05/[address] Caruso which was fine and he told her she didn't need to come back for 3yrs. CEA back down to 0.9 2mo ago but now at 1.3. Will continue to watch (F/u plan - CT scans will be done every 6 months for the first two years, then annually out to 5 years, unless needed sooner based on clinical assessment). B. Cancer of the right breast, T1b, N0, int grade, ER/PA strongly positive, Her- 2/odilon negative: Shehas a right breast mammogram (s/p prior left mastectomy for DCIS) done in early 02/08 which showed a0.6 cm mass at 10:00 in the right breast. Biopsy showed invasive ductal carcinoma wth lobular features, int grade, ER/PA positive and Her-2/odilon negative. On 03/17/18 she underwent a simple mastectomy w ith SLN excision.. The pathology showed a 0.6 cm invasive invasive ductal carcinoma, grade 2. The LNs were negative and margins of resection were negative. An order for Oncotype Dx was made to determine if she needed chemotherapy which was thought to be unlikely and she was started on Femara 2.5mg daily one month ago. Did well initially on Femara but more recently had hot flashes, very bad emotional mood swings, andnew R hip pain x several weeks. She does not want to use Tamoxifen as she is worried about strokes so will try Arimidex. RTC in Sep with CT scan- labs one week beforehand to determine Cr before contrast. In 09/10 she is scheduled to meet with our Genetics Counselor Mary Duque, MSN, HARNESS CUTTER, AOCN Hematology/Oncology Nurse Practitioner [place], [place] [phone] documented in this encounter Plan of Treatment Not on file documented as of this encounter Procedures Procedure Name Priority Date/Time Associated Diagnosis Comments CT SCAN (SCAN) 08/15/2018 12:00 AM EDT LAB SCAN 08/07/2018 12:00 AM EDT documented in this encounter Results * SCAN DOC: CT SCAN (08/15/2018 12:00 AM EDT) Anatomical Region Laterality Modality Other Narrative 08/15/2018 12:00 AM EDT Ordered by an unspecified provider. Scanning Provider MEDIA MGR SCAN EXT O RDR/RSLT * SCAN DOC: LAB (08/07/2018 12:00 AM EDT) Narrative 08/07/2018 12:00 AM EDT Ordered by an unspecified provider. Scanning Provider MEDIA MGR SCAN EXT O RDR/RSLT documented in this encounter Visit Diagnoses Diagnosis Carcinoma in situ of breast, unspecified laterality, unspecified type Malignant neoplasm of ascending colon documented in this encounter Care Teams Orthopedic Shoe Maker Relationship Specialty Start Date End Date Poly Copeland MD [address] [facility] [address] [place] [address] PCP - General 09/15/10 documented as of this encounter
--- OUTSIDE RECORDS SUMMARY | 2024-09-11 10:56 | XMS_ITS | Clinical Summary ---
Author Organization [facility] Address [facility] [place] [address] Care Team Providers Care Parts Cataloguer Name Role Phone Poly Copeland MD Primary Care Provider [phone] Allergies Active Allergy Reactions Criticality Noted Date Comments Sulfa (Sulfonamide Antibiotics) Medium CIS - mouth swells Medications Medication Sig Dispensed Refills Start Date End Date Status Cholecalciferol, Vitamin D3, (VITAMIN D) 1,000 unit Cap 09/30/2010 Active omeprazole (PRILOSEC) 20 mg Capsule, Delayed Release(E.C.) Take 20 mg by mouth daily. Active hydroCHLOROthiazide (HYDRODIURIL) 25 mg Tablet Take 40 mg by mouth daily. Active multivitamin (THERAGRAN) Tablet Take 1 tablet by mouth daily. Active acetaminophen (TYLENOL) 500 mg Tablet Take 1,000 mg by mouth every 6 hours as needed for Pain. Active aspirin 81 mg Tablet, Delayed Release (E.C.) Take 81 mg by mouth daily. Active potassium chloride (K-DUR/KLOR-CON) 20 mEq Tab Sust.Rel. Particle/CrystalIndic ations:Hypokalemia Take 1 tablet by mouth daily. 30 tablet 3 06/29/2017 Active calcium-vitamin D3 600 mg(1,500mg) -200 unit Tablet Take 2 tablets by mouth. Active albuteroL 90 mcg/actuation HFA Aerosol Inhaler Inhale 2 puffs into the lungs every 4 hours as needed for Wheezing. Use with spacer Active fluticasone/umeclidin /vilanter (TRELEGY ELLIPTA INHL) Inhale into the lungs daily. 1 puff daily Active Toviaz 8 mg Tablet Sustained Release 24 hr TAKE ONE TABLET BY MOUTH EVERY DAY 09/09/2021 Active Active Problems Problem Noted Date Diagnosed Date Malignant neoplasm of right breast in female, estrogen receptor positive 03/01/2018 Headache, chronic daily 05/10/2017 Malignant neoplasm of ascending colon 03/04/2017 Breast cancer in situ 10/27/2011 Immunizations Name Administration Dates Next Due Influenza Vaccine, Whole 08/26/2006,10/20/2005 Family History Medical History Relation Comments Breast Cancer Maternal Grandmother bilateral Colorectal Cancer Mother Brain Cancer Paternal Aunt Relation Status Comments Father (Age 74) Maternal Grandfather (Age 81) Maternal Grandmother (Age 80) Mother (Age 71) Paternal Aunt (Age 71) Paternal Grandfather (Age 65) Paternal Grandmother (Age 98) Sister 1 Alive Sister 2 Alive Sister 3 Alive Social History Tobacco Use Types Packs/Day Years Used Date Smoking Tobacco: Former Smokeless Tobacco: Never Comments:quite 17 years ago Sex and Gender Information Value Date Recorded Sex Assigned at Not on file Gender Identity Female 10/25/2020 5:11 AM EST Sexual Orientation Not on file Last Filed Vital Signs Vital Sign Reading Time Taken Comments Blood Pressure 145/61 07/02/2022 9:58 AM EDT Pulse 77 07/02/2022 9:58 AM EDT Temperature 36.1 ??C (96.9 ??F) 07/02/2022 9:58 AM ED T Respiratory Rate 16 07/02/2022 9:58 AM EDT Oxygen Saturation 99% 07/02/2022 9:58 AM EDT Inhaled Oxygen Concentration - - Weight 95.3 kg (210 lb) 07/02/2022 9:58 AM EDT Height 161.3 cm (5' 3.5) 07/02/2022 9:58 AM EDT Body Mass Index 36.62 07/02/2022 9:58 AM EDT Plan of Treatment Health Maintenance Due Date Last Done Comments Tetanus/Diphtheria/Pertussis Vaccines (1 - Tdap) 1961 Zoster vaccine (1 of 2) 1992 Bone Density Scan 2007 Pneumoccocal Vaccine: 65+ (1 of 1 - PCV) 2007 RSV Vaccine (1 - 1-dose 75+ series) 2017 Covid-19 Vaccine (1 - 2023-25 season) 2024 Influenza (Flu) vaccine (1 o f 1 - Influenza standard series) 06/24/2024 08/26/2006, 10/20/2005 Medical Devices Implanted Type Area Trolley Wire Installer Device Identifier Shelf Expiration Date Model / Serial / Lot Breast Clip-01/30/2018 Implanted:Qty: 1 on 01/30/2018 by Nguyen Hernandez MD Breast Clip Right: Breast Bard - [id number] jennifer clip 08/24/2020 [id number] / [id number] / Advance Directives Documents on File Type Date Recorded Patient Lifter Expl anation Advance Directives and Livin g Will 03/23/2018 7:51 AM 03/13/18 * Full Code (Latest Code Status on File) Date Activated Date Inactivated Comments 02/03/2017 12:18 PM 02/04/2017 4:37 AM Question Answer Comments Does patient have capacity to make decision: Yes Care Teams Parts Cataloguer Relationship Specialty Start Date End Date Poly Copeland MD [address] [place] [address] [place], [place] [address] PCP - General 09/15/10
--- OUTSIDE RECORDS SUMMARY | 2024-09-11 10:56 | XMS_ITS | Encounter Summary ---
Author Organization [facility] [place] [address] Care Team Providers Care Physical Optics Teacher Name Role Phone Poly Copeland MD Primary Care Provider [phone] Reason for Visit * Reason Onset Date Comments Medication Reaction 07/13/2018 Intolerant l etrozole Encounter Details Date Type Department Care Team (Late st Contact Info) Description 07/13/2018 Telephone Hematology/Oncology at [address] [phone] Mary Granda RN Medication Reaction (Intolerant letrozole) Social History Tobacco Use Types Packs/Day Years Used Date Smoking Tobacco: Former Smokeless Tobacco: Never Comments:quite 17 years ago Sex and Gender Information Value Date Recorded Sex Assigned at Not on file Gender Identity Female 10/25/2020 5:11 AM EST Sexual Orientation Not on file documented as of this encounter Miscellaneous Notes * Telephone Encounter - Mary Granda RN - 07/13/2018 9:24 AM EDT Patient called stating she had severe side effects from Letrozole. Unbearable hot flashes, insomniaunresponsive to medications, severe headache, uncontrollable crying. She stopped med one week ago and all symptoms resolved. Dr. Del Toro notified via this note. * Telephone Encounter - Mary Granda RN - 07/13/2018 9:23 AM EDT ----- Message from Leticia Cash sent at 07/13/2018 8:52 AM EDT ----- Regarding: Please Call Kelly called wanting to speak with a nurse about some questions she has. Thanks, Leticia documented in this encounter Plan of Treatment Not on file documented as of this encounter Visit Diagnoses Not on filedocumented in this encounter Care Teams Physical Optics Teacher Relationship Specialty Start Date End Date Poly Copeland MD [address] [place] [address] PCP - General 09/15/10 documented as of this encounter
--- OUTSIDE RECORDS SUMMARY | 2024-09-11 10:56 | XMS_ITS | Encounter Summary ---
Author Organization [facility] Address [facility] [place] [address] Care Team Providers Care Surgical Orderly Name Role Phone Poly Copeland MD Primary Care Provider [phone] Encounter Details Date Type Department Care Team (Latest Contact Info) Description 05/02/2018 - 05/02/2018 11:59 PM EDT Hospital Encounter Radiology Library at [facility] [place] [phone] Mary Duque, SUNNI [address] [facility] [place] [address] Discharge Disposition: Home Social History Tobacco Use Types Packs/Day Years Used Date Smoking Tobacco: Former Smokeless Tobacco: Never Comments:quite 17 years ago Sex and Gender Information Value Date Recorded Sex Assigned at Not on file Gender Identity Female 10/25/2020 5:11 AM EST Sexual Orientation Not on file documented as of this encounter Medications at Time of Discharge Medication Sig Dispensed Refills Start Date End Date potassium chloride (K-DUR/KLOR-CON) 20 mEq Tab Sust.Rel. Particle/CrystalIndica tions:Hypokalemia Take 1 tablet by mouth daily. 30 tablet 3 06/29/2017 aspirin 81 mg Tablet, Delayed Release (E.C.) Take 81 mg by mouth daily. acetaminophen (TYLENOL) 500 mg Tablet Take 1,000 mg by mouth every 6 hours as needed for Pain. multivitamin (THERAGRAN) Tablet Take 1 tablet by mouth daily. omeprazole (PRILOSEC) 20 mg Capsule, Delayed Release(E.C.) Take 20 mg by mouth daily. hydroCHLOROthiazide (HYDRODIURIL) 25 mg Tablet Take 40 mg by mouth daily. Cholecalciferol, Vitamin D3, (VITAMIN D) 1,000 unit Cap 09/30/2010 INCRUSE ELLIPTA 62.5 mcg/actuation Disk with Device Inhale 1 Inhalation into the lungs daily. 12 12/12/2017 05/15/2021 cyanocobalamin 1,000 mcg Tablet Take 1,000 mcg by mouth daily. 05/15/2021 Calcium Carbonate (TUMS) 300 mg (750 mg) Chew 09/30/2010 11/16/2019 documented as of this encounter Plan of Treatment Not on file documented as of this encounter Procedures Procedure Name Priority Date/Time Associated Diagnosis Comments FILM LIBRARY- STORAGE ONLY DXA IMAGES Routine 05/02/2018 12:00 AM EDT documented in this encounter Results * Film Library- Storage Only DXA Images (05/02/2018 12:00 AM EDT) Narrative KATELYN - 05/03/2018 5:14 AM EDT This exam is for storage only and is auto-finalizing. Mary Duque APRN IMG FILM LIBRARY ORD ERABLES [place], [place] documented in this encounter Visit Diagnoses Not on filedocumented in this encounter Care Teams Surgical Orderly Relationship Specialty Start Date End Date Poly Copeland MD [address] [place] [place] [address] PCP - General 09/15/10 documented as of this encounter
--- OUTSIDE RECORDS SUMMARY | 2024-09-11 10:56 | XMS_ITS | Encounter Summary ---
Author Organization [facility] Address [facility] [place] [address] Care Team Providers Care Casino Investigator Name Role Phone Poly Copeland MD Primary Care Provider [phone] Encounter Details Date Type Department Care Team (Late st Contact Info) Description 11/10/2018 11:30 AM EST Office Visit Hematology/Oncology at [address] [phone] Raffi Del Toro MD [facility] [place] [address] Malignant neoplasm of ascending colon; Breast cancer, stage 1, estrogen receptor positive, right Social History Tobacco Use Types Packs/Day Years Used Date Smoking Tobacco: Former Smokeless Tobacco: Never Comments:quite 17 years ago Sex and Gender Information Value Date Recorded Sex Assigned at Not on file Gender Identity Female 10/25/2020 5:11 AM EST Sexual Orientation Not on file documented as of this encounter Last Filed Vital Signs Vital Sign Reading Time Taken Comments Blood Pressure 146/68 11/10/2018 11:38 AM EST Pulse 87 11/10/2018 11:38 AM EST Temperature 36.4 ??C (97.5 ??F) 11/10/2018 11:[address] Respiratory Rate 16 11/10/2018 11:38 AM EST Oxygen Saturation 97% 11/10/2018 11:38 AM EST Inhaled Oxygen Concentration - - Weight 100.2 kg (221 lb) 11/10/2018 11:38 AM EST Height 162 cm (5' 3.78) 11/10/2018 11:38 AM EST Body Mass Index 38.2 11/10/2018 11:38 AM EST documented in this encounter Progress Notes * Raffi Del Toro MD - 11/10/2018 11:30 AM EST Subjective: Patient ID: Kelly Strickland is a 78 y.o. female. Problem List: 1. Cancer of the right breast, pT1b, N0, Int grade, ER/MS +, Her-2/odilon negative A. Right breast mammogram 01/25/18 ([facility] [place] review) - IMPRESSION/recommendation: Right breast lesion 1 BI-RADS Category 0: Assessment incomplete. ??0.6 cm mass 10:00 position 11 cmfrom the nipple. Recommend second look ultrasound to determine if this will get up graded to category 4 and require biopsy Mammogram at [facility] [place] 01/30/18 - IMPRESSION: [...] in-situ, solid, low nuclear grade, without necrosis. ?? ER immunoreactivity: Positive ( ??>90% cancer cells with immunostaining) Stain intensity: Strong MS immunoreactivity: Positive ( ??>90% cancer cells with [...] Type: ?? Invasive ductal carcinoma ?Histologic Grade (Karissa Histologic Score) ? Glandular (Acinar) / Tubular [...] and ??<= 200 cells): 0 ?Number of [place] Nodes Examined: ?2 Pathologic Stage Classification (pTNM, AJCC 8th Edition) ?Primary Tumor (Invasive Carcinoma) (pT): ?pT1b ?Regional Lymph Nodes (pN) ? Modifier: ??(sn): Only sentinel node(s) evaluated. ? Category (pN): ?? pN0 D. Oncotype Dx score - 7, in low risk range E. Adjuvant hormonal therapy with Letrozole, started in 04/2018. ??Stopped in 07/11 due to side effects, including hot flashes, headaches, emotional laiblity and arthralgias. ??Symptoms resolved after stopping. 07/2018 - began anastrozole. F. Bone scan 08/15/18 - Impression: ??Areas of increased activity consistent with degenerative disease in the spine, hips and right foot. ??There are no findings to suggest metastatic disease. 2. Colon cancer, pT4a, pN1a, M0 A. Presented with abdominal pain, nausea and vomiting 01/23/17 CT a/p - Rotated and distended cecum suspicious for a cecal volvulus. ??The ileocecal valve and appendix are seen in the LUQ. Question of thickening of the wall of the ascending colon. ??This may represent inflammatory, infectious or neoplastic process. B. 01/23/17 - Right hemicolectomy Path ([facility] [place] review) - CONSULTATION CASE Outside slide(s) labeled [id number], collection date 01/23/2017. Ascending colon, cecum, terminal [...] after cycle 9 due to cumulative toxicity. ??Last cycle given 08/09/17 F. Colonoscopy 05/12/18 - Moderate sigmoid diverticulosis. Grade 2 hemorrhoids Per note, f/u planned in one year. G. CT c/a/p 10/13/18 - ??When compared with the prior study, there is nothing on today's examination to suggest metastatic disease involving the chest, abdomen or pelvis. ?? Note is made of bilateralbreast implants without evidence of implant rupture. She is status post hysterectomy. ??There is also no evidence of bony metastatic disease. 3. DCIS of the left breast, diagnosed in 2006. ??S/p mastectomy. ??No further therapy 4. HTN 5. COPD 6. S/p cholecystectomy 7. S/p hysterectomy 8. S/p bilateral TKA 9. Dexa scan 05/02/18 - Conclusion: Findings consistent with normal bone density. ??Lateral vertebral shows no evidence of a vertebral compression fracture. 10. Genetic testing 08/2018 - Result: [employer]'s Common Hereditary Cancers Panel showed no mutation was detected. ??This means that Kelly does not carry a mutation in the genes detectable by this test. ??The following genes were evaluated for sequence changes and exonic deletions/duplications: APC, PALLAVI, AXIN2, BARD1, BMPR1A, BRCA1, BRCA2, BRIP1, CDH1, CDK4, CDKN2A (p14ARF), CDKN2A (h13PJB8j), CHEK2, CTNNA1, DICER1, EPCAM (EPCAM: Deletion/duplication testing only ([id number]), GREM1 (GREM1: Promoter region deletion/duplication testing only.), KIT, MEN1, MLH1, MSH2, MSH3, MSH6, MUTYH, NBN, NF1, PALB2, PDGFRA, PMS2, POLD1, POLE, PTEN, RAD50, RAD51C, RAD51D, SDHB, SDHC, SDHD, SMAD4, SMARCA4, STK11, TP53, TSC1, TSC2, VHL. ??The following genes were evaluated for sequence changes only: HOXB13 (c.251G>A, p.Ijv44Fin variant only), NTHL1 (NTHL1: Deletion/duplication analysis is not offered for this gene ([id number]), and SDHA. ??We are enclosing a printed copy of Kelly's test results. ?? HPI Ms. Strickland is seen in f/u of stage III colon cancer and cancer of the right breast. ??The history is summarized above. On presentation today, she is by herself. ??She is doing pretty well overall. She is tolerating theanastrozole better than she did the letrozole. She still has some hot flashes but they are mild andshe does not feel she needs anything for them. She no longer has symptoms of depression. She has had weight gain since staring hormonal therapy. Her weight is a couple of pounds higher than in 08/10.She is using a treadmill daily, for up to 20 minutes a couple of times per day. She has noticed that her RUE tends to fall asleep at night despite the fact that she is not sleeping on it. This can also happen when she is in a chair. It goes away when she moves the arm. The arm is not swollen. This is the opposite side from the breast cancer and is the side that the mediport was on ??Her bowels are regular with no melena or BRBPR. ?She has some arthralgias and no other areas of pain. ??No fevers. ??She has a rash on the posterior neck and a smaller area on the anterior aspect. It is pruritic. She has used a cortisone cream and this does help for a period of time but the rash really has not improved. She has been applying this twice a day. Soc Hx: , lives alone in [place], [place] Tob - Quit 17 years ago Etoh - None [employer] Fam Hx: Father - at age 81, heart disease, ischemic bowel Mother - at 71, colon cancer, COPD Sibs - 3 sisters, 2 in good health, 1 with COPD. ??No cancer Children - 3 sons, all in good health Review of Systems Objective: Physical Exam Constitutional: She is oriented to person, place, and time. She appears well- developed and well-nourished. No distress. HENT: Head: Normocephalic and atraumatic. Eyes: No scleral icterus. Cardiovascular: Normal rate and regular rhythm. Pulmonary/Chest: Effort normal. No respiratory distress. She has no wheezes. She has no rales. Abdominal: She exhibits no distension and no mass. There is no tenderness. There is no guarding. Genitourinary: Genitourinary Comments: Breast exam - s/p bilateral mastectomy. No evidence of locally recurrent disease. Musculoskeletal: She exhibits no edema. Lymphadenopathy: She has no cervical adenopathy. She has no axillary adenopathy. Right: No supraclavicular adenopathy present. Left: No supraclavicular adenopathy present. Neurological: She is alert and oriented to person, place, and time. Skin: Skin is warm and dry. Rash noted. Small pink area, mildly papular, Anterior lower neck. On back of neck, there is a more confluent, most macular area with scaling and some areas of excoriation. Psychiatric: She has a normal mood and affect. Vitals reviewed. Labs: WBC/ANC - 6., Hgb/Hct - 13.5/43, Plts - 216,000. ??BUN/Cr - 20/1.01. ??Alb - 3.3. ??Lytes and LFTs o/w unremarkable. Lipid panel 05/02/18 - Total chol - 211, LDL - 135, HDL - 41, Triglycerides - 193 CEA: 11/07/18 0.8 08/07/18 1.3 03/31/18 1.5 12/30/17 0.9 09/08/17 0.8 05/27/17 <0.5 04/28/17 1.0 03/18/[address] personally reviewed, report above Assessment and Plan: Ms. Strickland is a 78 yo female seen in f/u of colon cancer and right sided breast cancer. ?? A. Colon cancer: She was diagnosed with adenocarcinoma of the ascending colon in early 02/07 after presenting with abdominal pain, nausea and vomiting. ??On 01/23/17 she underwent a right hemicolectomy.??The pathology report is above, high grade adenocarcinoma with 11/06 LN's involved, margins negative. ??CT showed no evidence of metastatic disease. ?? 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 ? On 03/30/17, she began adjuvant therapy with Folfox and received 9 cycles, the last given on 08/11/17. ??Therapy was stopped at that point due to cumulative toxicity, including neuropathy. ? The CT done 10/13/18 showed no evidence of metastatic disease. ??Clinically, she is doing well. ??She had a colonoscopy on 05/12/[address] Caruso which showed diverticulosis and hemorrhoids but no recurrence and no polyps mentioned. ??Per pt, the plan is for f/u in three years. I will plan to see her in three months with labs and will repeat the CT in 6 months. (F/u plan - CT scans will be done every 6 months for the first two years, then annually out to 5 years, unless needed sooner based on clinical assessment). B. Cancer of the right breast, T1b, N0, int grade, ER/MS strongly positive, Her- 2/odilon negative: Shehad a right breast mammogram (s/p prior left mastectomy for DCIS) done in early 02/08 which showed a0.6 cm mass at 10:00 in the right breast. Biopsy showed invasive ductal carcinoma wth lobular features, int grade, ER/MS positive and Her-2/odilon negative. ??On 03/17/18 she underwent a simple mastectomy with SLN excision.. ??The pathology showed a 0.6 cm invasive invasive ductal carcinoma, grade 2. ??The LNs were negative and margins of resection were negative. ?? In 04/2018, she began adjuvant hormonal therapy with Letrozole. ??In 07/11 she stopped that due to side effects, including hot flashes, headache, emotional lability and arthralgias. ??A bone scan was done in 08/10 and showed findings consistent with degenerative disease and no evidence of metastatic disease. ??Symptoms resolved after stopping this. ??In 08/10 she began anastrozole. The dexa scan done 05/02/18 showed normal bone density. ??She is taking calcium with vitamin D. ??Wewill repeat the dexa scan in 04/2020. ??She has had bilateral mastectomy and therefore is not havingmammograms. The most recent lipid panel is noted above. ??I will defer management of this to Dr. Copeland. In addition, I suggested she see Dr. Copeland about the skin rash. ?? documented in this encounter Plan of Treatment Not on file documented as of this encounter Procedures Procedure Name Priority Date/Time Associated Diagnosis Comments LAB SCAN 11/07/2018 12:00 AM EST documented in this encounter Results * SCAN DOC: LAB (11/07/2018 12:00 AM EST) Narrative 11/07/2018 12:00 AM EST Ordered by an unspecified provider. Scanning Provider MEDIA MGR SCAN EXT O RDR/RSLT documented in this encounter Visit Diagnoses Diagnosis Malignant neoplasm of ascending colon Breast cancer, stage 1, estrogen receptor positive, right documented in this encounter Care Teams Casino Investigator Relationship Specialty Start Date End Date Poly Copeland MD [address] [place] [address] PCP - General 09/15/10 documented as of this encounter
--- OUTSIDE RECORDS SUMMARY | 2024-09-11 10:56 | XMS_ITS | Encounter Summary ---
Author Organization [facility] [place] [address] Care Team Providers Care Facilities Coordinator Name Role Phone Poly Copeland MD Primary Care Provider [phone] Reason for Visit * Reason Onset Date Comments Other 10/09/2018 Encounter Details Date Type Department Care Team (Late st Contact Info) Description 10/09/2018 Telephone Hematology/Oncology at [address] [phone] Vidhi Hughes RN Other Social History Tobacco Use Types Packs/Day Years Used Date Smoking Tobacco: Former Smokeless Tobacco: Never Comments:quite 17 years ago Sex and Gender Information Value Date Recorded Sex Assigned at Not on file Gender Identity Female 10/25/2020 5:11 AM EST Sexual Orientation Not on file documented as of this encounter Miscellaneous Notes * Telephone Encounter - Vidhi Hughes RN - 10/09/2018 9:04 AM EST Per Mary Duque MERCHANDISE WORKER called pt and asked her to drink at least a liter of fluid prior to and after ct scan on 10/13/18. Pt agrees with plan. documented in this encounter Plan of Treatment Not on file documented as of this encounter Visit Diagnoses Not on filedocumented in this encounter Care Teams Facilities Coordinator Relationship Specialty Start Date End Date Poly Copeland MD [address] [place], [place] [id number] PCP - General 09/15/10 documented as of this encounter
--- OUTSIDE RECORDS SUMMARY | 2024-09-11 10:56 | XMS_ITS | Encounter Summary ---
Author Organization [facility] Address [facility] [place] [address] Care Team Providers Care Coin Purse Assembler Name Role Phone Poly Copeland MD Primary Care Provider [phone] Encounter Details Date Type Department Care Team (Late st Contact Info) Description 05/12/2018 External [place] [id number] Provider, Scanning Social History Tobacco Use Types Packs/Day Years Used Date Smoking Tobacco: Former Smokeless Tobacco: Never Comments:quite 17 years ago Sex and Gender Information Value Date Recorded Sex Assigned at Not on file Gender Identity Female 10/25/2020 5:11 AM EST Sexual Orientation Not on file documented as of this encounter Plan of Treatment Not on file documented as of this encounter Procedures Procedure Name Priority Date/Time Associated Diagnosis Comments SURGICAL PATHOLOGY SCAN Routine 05/12/2018 documented in this encounter Results * Scan Doc: Surgical Pathology (05/12/2018) Raffi Del Toro MD MEDIA MGR SCAN EXT O RDR/RSLT documented in this encounter Visit Diagnoses Not on filedocumented in this encounter Care Teams Coin Purse Assembler Relationship Specialty Start Date End Date Poly Copeland MD [address] [place] [address] PCP - General 09/15/10 documented as of this encounter
--- OUTSIDE RECORDS SUMMARY | 2024-09-11 10:56 | XMS_ITS | Encounter Summary ---
Author Organization [facility] [place] [address] Care Team Providers Care Excel Vba Developer Name Role Phone Poly Copeland MD Primary Care Provider [phone] Reason for Visit * Reason Onset Date Comments Follow-up 10/05/2018 Encounter Details Date Type Department Care Team (Late st Contact Info) Description 10/05/2018 Telephone Hematology/Oncology at [address] [phone] Vidhi Hughes RN Follow-up Social History Tobacco Use Types Packs/Day Years Used Date Smoking Tobacco: Former Smokeless Tobacco: Never Comments:quite 17 years ago Sex and Gender Information Value Date Recorded Sex Assigned at Not on file Gender Identity Female 10/25/2020 5:11 AM EST Sexual Orientation Not on file documented as of this encounter Miscellaneous Notes * Telephone Encounter - Vidhi Hughes RN - 10/05/2018 11:33 AM EST Called pt to let her know per Mary Duque MORNING SHOW PRODUCER that her creatinine was 1 which is fine for the upcoming CT scan. documented in this encounter Plan of Treatment Not on file documented as of this encounter Visit Diagnoses Not on filedocumented in this encounter Care Teams Excel Vba Developer Relationship Specialty Start Date End Date Poly Copeland MD [address] [place], [place] [id number] PCP - General 09/15/10 documented as of this encounter
--- OUTSIDE RECORDS SUMMARY | 2024-09-11 10:56 | XMS_ITS | Encounter Summary ---
Author Organization [facility] [place] [address] Care Team Providers Care Cement Crusher Operator Name Role Phone Poly Copeland MD Primary Care Provider Encounter Details Date Type Department Care Team (Late st Contact Info) Description 01/24/2020 Telephone Hematology/Oncology at [address] [phone] Chip Rosas Social History Tobacco Use Types Packs/Day Years [...] on filedocumented in this encounter Care Teams Cement Crusher Operator Relationship Specialty Start Date End Date Poly Copeland MD [address] [place] [address] [address] [place], [place] [address] PCP - General 09/15/10 documented as of this encounter
--- OUTSIDE RECORDS SUMMARY | 2024-09-11 10:56 | XMS_ITS | Encounter Summary ---
Author Organization [facility] Address [facility] [place] [address] Care Team Providers Care Health Care Social Worker Name Role Phone Poly Copeland MD Primary Care Provider [phone] Reason for Referral * Consultation (Routine) - Specialty Diagnoses / Procedures Referred By Contac t Referred To Contact Diagnoses Malignant neoplasm of ascending colon BRBPR (bright red blood per rectum) Raffi Del Toro MD [facility] [place] [address] Morro Alves MD [address] [place] [address] Referral ID Status Reason Start Date Expiration Date Visits Requested Visits Authorized [id number] Specialty Service Requested 05/18/2019 11/14/2019 1 1 Encounter Details Date Type Department Care Team (Late st Contact Info) Description 05/18/2019 1:00 PM EDT Office Visit Hematology/Oncology at [address] [phone] Raffi Del Toro MD [facility] [place] [address] Breast cancer, stage 1, right; Malignant neoplasm of ascending colon; BRBPR (bright red blood per rectum) Social History Tobacco Use Types Packs/Day Years Used Date Smoking Tobacco: Former Smokeless Tobacco: Never Comments:quite 17 years ago Sex and Gender Information Value Date Recorded Sex Assigned at Not on file Gender Identity Female 10/25/2020 5:11 AM EST Sexual Orientation Not on file documented as of this encounter Last Filed Vital Signs Vital Sign Reading Time Taken Comments Blood Pressure 167/65 05/18/2019 12:51 PM EDT Pulse 79 05/18/2019 12:51 PM EDT Temperature 36.4 ??C (97.5 ??F) 05/18/2019 12:51 PM E DT Respiratory Rate 17 05/18/2019 12:51 PM EDT Oxygen Saturation 99% 05/18/2019 12:51 PM EDT Inhaled Oxygen Concentration - - Weight 100.2 kg (221 lb) 05/18/2019 12:51 PM EDT Height 162 cm (5' 3.78) 05/18/2019 12:51 PM EDT copied Body Mass Index 38.2 05/18/2019 12:51 PM EDT documented in this encounter Progress Notes * Raffi Del Toro MD - 05/18/2019 1:00 PM EDT Subjective: Patient ID: Kelly Strickland is a 79 y.o. female. Problem List: 1. Cancer of the right breast, pT1b, N0, Int grade, ER/NE +, Her-2/odilon negative A. Right breast mammogram 01/25/18 ([facility] review) - IMPRESSION/recommendation: Right breast lesion 1 BI-RADS Category 0: Assessment incomplete. ??0.6 cm mass 10:00 position 11 cmfrom the nipple. Recommend second look ultrasound to determine if this will get up graded to category 4 and require biopsy Mammogram at [facility] 01/30/18 - IMPRESSION: Highly suspicious 0.7 cm [...] cancer cells with immunostaining) Stain intensity: Strong NE immunoreactivity: Positive ( ??>90% cancer cells with [...] and ??<= 200 cells): 0 ?Number of [place] Nodes Examined: ?2 Pathologic Stage Classification (pTNM, [...] resolved after stopping. 07/2018 - began anastrozole. Stopped in 04/2019 due to fatigue, hot flashes and weight gain. F. Bone scan 08/15/18 - Impression: ??Areas [...] process. B. 01/23/17 - Right hemicolectomy Path ([facility] review) - CONSULTATION CASE Outside slide(s) labeled [id number], collection date 01/23/2017. Ascending colon, cecum, terminal [...] also no evidence of bony metastatic disease. CT ca/p 05/14/19 - Chest - Impression: No evidence of thoracic metastatic disease. Abd/pelvis - Impression: No evidence of abdominal or pelvic metastatic disease. Incidental findingsin the abdomen and pelvis. 3. DCIS of the left breast, diagnosed in 2006. ??S/p mastectomy. ??No further therapy 4. HTN 5. COPD 6. S/p cholecystectomy 7. S/p hysterectomy 8. S/p bilateral TKA 9. Dexa scan 05/02/18 - Conclusion: Findings consistent with normal bone density. ??Lateral vertebral shows no evidence of a vertebral compression fracture. 10. Genetic testing 08/2018 - Result: [employer] Common Hereditary Cancers Panel showed no mutation was detected. ??This means that Kelly does not carry a mutation in the genes detectable by this test. ??The following genes were evaluated for sequence changes and exonic deletions/duplications: APC, PALLAVI, AXIN2, BARD1, BMPR1A, BRCA1, BRCA2, BRIP1, CDH1, CDK4, CDKN2A (p14ARF), CDKN2A ([id number]), CHEK2, CTNNA1, DICER1, EPCAM (EPCAM: Deletion/duplication testing only (NM_[id number]), GREM1 (GREM1: Promoter region deletion/duplication testing only.), KIT, MEN1, MLH1, MSH2, MSH3, MSH6, MUTYH, NBN, NF1, PALB2, PDGFRA, PMS2, POLD1, POLE, PTEN, RAD50, RAD51C, RAD51D, SDHB, SDHC, SDHD, SMAD4, SMARCA4, STK11, TP53, TSC1, TSC2, VHL. ??The following genes were evaluated for sequence changes only: HOXB13 (c.251G>A, p.Mlp68Tbi variant only), NTHL1 (NTHL1: Deletion/duplication analysis is not offered for this gene ([id number]), and SDHA. ??We are enclosing a printed copy of Kelly's test results. ?? HPI Ms. Strickland is seen in f/u of stage III colon cancer and cancer of the right breast. ??The history is summarized above. On presentation today, she is by herself. ??She is doing pretty well overall. She was feeling poorly with fatigue, hot flashes and weight gain. She therefore stopped the anastrozole and has felt muchbetter since then. Her energy level is much better and she has been working out in the yard and garden. She has enjoying her grand children. Her appetite is good. Another area of concern today is that she has had blood in her stool intermittently for the past 1-2 months. It is bright red blood, mostly on the tissue although she has also had some blood dripping onto the floor after she is done. She has never had bleeding like this before. Soc Hx: , lives alone in [place], [place] Tob - Quit 17 years ago Etoh - None Works [employer] Fam Hx: Father - at age 81, heart disease, ischemic bowel Mother - at 71, colon cancer, COPD Sibs - 3 sisters, 2 in good health, 1 with COPD. ??No cancer Children - 3 sons, all in good health Review of Systems Constitutional: Negative for activity change, appetite change, fatigue (improved since stopping arimidex), fever and unexpected weight change. HENT: Negative. Respiratory: Negative. Cardiovascular: Negative. Gastrointestinal: Positive for blood in stool. Genitourinary: Negative. Musculoskeletal: Negative. Skin: Negative. Neurological: Negative. Hematological: Negative. Psychiatric/Behavioral: Negative. Objective: Physical Exam Constitutional: She is oriented [...] mastectomy. No evidence of locally recurrent disease. Rectal exam - appears to have a small external hemorrhoid. Internal exam not performed. Musculoskeletal: She exhibits no edema. Lymphadenopathy: She [...] and affect. Vitals reviewed. Labs: WBC/ANC - 5.05/3140, Hgb/Hct - 13.5/42.9, Plts - 233,000. ??BUN/Cr - 16/1.08. ??Alb - 3.3. ??Lytes and LFTs o/w unremarkable. Lipid panel 05/02/18 - Total chol - 211, LDL - 135, HDL - 41, Triglycerides - 193 CEA: 05/14/19 1.0 02/01/19 1.2 11/07/18 0.8 08/07/18 1.3 03/31/18 1.5 12/30/17 0.9 09/08/17 0.8 05/27/17 <0.5 04/28/17 1.0 03/18/[address] personally reviewed, report above Assessment and Plan: Ms. Strickland is a 79 yo female seen in f/u of colon cancer and right sided breast cancer. ?? A. Colon cancer: She was diagnosed with adenocarcinoma of the ascending colon in early 02/07 after presenting with abdominal pain, nausea and vomiting. ??On 01/23/17 she underwent a right hemicolectomy.??The pathology report is above, high grade adenocarcinoma with 1/ LN's involved, margins negative. ??CT showed no [...] toxicity, including neuropathy. ? The CT done 05/14/19 shows no evidence of metastatic disease. ? She had a colonoscopy on 05/12/[address] Caruso which showed diverticulosis and hemorrhoids but no recurrence and no polyps mentioned. ??The plan was for f/u in three years. However, given the intermittent bleeding, I will make a referral for her to see Dr. Alves for evaluation. This may be related to hemorrhoids. I will plan to see her in four months with labs and will repeat the CT in a year. (F/u plan - CT scans will be done every 6 months for the first two years, then annually out to 5 years, unless needed sooner based on clinical assessment). B. Cancer of the right breast, T1b, N0, int grade, ER/NE strongly positive, Her- 2/odilon negative: Shehad a right breast mammogram (s/p prior left mastectomy for DCIS) done in early 02/08 which showed a0.6 cm mass at 10:00 in the right breast. Biopsy showed invasive ductal carcinoma wth lobular features, int grade, ER/NE positive and Her-2/odilon negative. ??On 03/17/18 she [...] stopping this. ??In 08/10 she began anastrozole. She stopped thisa couple of weeks ok due to symptoms of fatigue, hot flashes and weight gain and mejía felt much better since then. We talked about options. She does not want to restart an AI because her QOL is much better off of this. Tamoxifen is an option. She is aware that there is an increased, although low, risk of thromboembolic complications. 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 Exemestaneis an option but she is clear that at this point she would like to be followed without further therapy. She understands that this does increase the risk of recurrence, but has considered this and is most comfortable with this approach. The dexa scan done 05/02/18 showed normal bone density. ??She is taking calcium with vitamin D. ??Wewill repeat the dexa scan in 04/2020. ??She has had bilateral mastectomy and therefore is not havingmammograms. The most recent lipid panel is noted above. ??This is followed by Dr. Copeland. documented in this encounter Plan of Treatment Scheduled Referrals Name Type Priority Associated Diagnoses Orde r Schedule Referral to General Surgery Outpatient Referral Routine Malignant neoplasm of ascending colon BRBPR (bright red blood per rectum) Ordered: 05/18/2019 documented as of this encounter Visit Diagnoses Diagnosis Breast cancer, stage 1, right Malignant neoplasm of ascending colon BRBPR (bright red blood per rectum) Hemorrhage of rectum and anus documented in this encounter Care Teams Health Care Social Worker Relationship Specialty Start Date End Date Poly Copeland MD [address] [facility] [address] [place] [address] PCP - General 09/15/10 documented as of this encounter
--- OUTSIDE RECORDS SUMMARY | 2024-09-11 10:56 | XMS_ITS | Encounter Summary ---
Author Organization [facility] Address [facility] [place] [address] Care Team Providers Care Cut Filer Name Role Phone Poly Copeland MD Primary Care Provider [phone] Encounter Details Date Type Department Care Team (Late st Contact Info) Description 05/14/2019 Ancillary Procedure Radiology Library at [facility] [place] [phone] Raffi Del Toro MD [facility] [address] Social History Tobacco Use Types Packs/Day Years [...] Name Priority Date/Time Associated Diagnosis Comments FILM LIBRARY STORAGE ONLY CT CHEST ABDOMEN PELVIS Routine 05/14/2019 12:00 AM EDT documented in this encounter Results * Film Library- Storage Only CT Chest Abdomen Pelvis (05/14/2019 12:00 AM EDT) Narrative KATELYN - 06/25/2020 10:02 PM EDT This exam is auto-finalizing. It's purpose is for storage only. Raffi Del Toro MD IMG FILM LIBRARY ORD ERABLES [facility] [place] documented in this encounter Visit Diagnoses Not on filedocumented in this encounter Care Teams Cut Filer Relationship Specialty Start Date End Date Poly Copeland MD [address] [place], [place] [address] [facility] 1 [place] [address] PCP - General 09/15/10 documented as of this encounter
--- OUTSIDE RECORDS SUMMARY | 2024-09-11 10:56 | XMS_ITS | Encounter Summary ---
Author Organization [facility] Address [facility] [place] [address] Care Team Providers Care Creative/Art Director Name Role Phone Poly Copeland MD Primary Care Provider [phone] Encounter Details Date Type Department Care Team (Late st Contact Info) Description 07/02/2022 10:00 AM EDT Office Visit Hematology/Oncology at [address] [phone] Raffi Del Toro MD [facility] [place] [address] Malignant neoplasm of ascending colon; Breast cancer, stage 1, right Social History Tobacco Use Types Packs/Day [...] Mass Index 36.62 07/02/2022 9:58 AM EDT documented in this encounter Progress Notes * Raffi Del Toro MD - 07/02/2022 10:00 AM EDT Subjective: Patient ID: Kelly Strickland is 82 y.o. Problem List: 1. Cancer of the right breast, pT1b, N0, Int grade, ER/ND +, Her-2/odilon negative A. Right breast mammogram 01/25/18 ([facility] review) - IMPRESSION/recommendation: Right breast lesion 1 BI-RADS Category 0: Assessment incomplete. ??0.6 cm mass 10:00 position 11 cmfrom the nipple. Recommend second look ultrasound to determine if this will get up graded to category 4 and require biopsy Mammogram at [facility] 01/30/18 - IMPRESSION: Highly suspicious 0.7 cm [...] cancer cells with immunostaining) Stain intensity: Strong ND immunoreactivity: Positive ( ??>90% cancer cells with [...] and ??<= 200 cells): 0 ?Number of [place] Nodes Examined: ?2 Pathologic Stage Classification (pTNM, [...] process. B. 01/23/17 - Right hemicolectomy Path ([facility] review) - CONSULTATION CASE Outside slide(s) labeled [id number], collection date 01/23/2017. Ascending colon, cecum, terminal [...] Moderate sigmoid diverticulosis. Grade 2 hemorrhoids Per pt, f/u planned in three years. G. CT ca/p 05/14/19 - Chest - Impression: No evidence of thoracic metastatic disease. Abd/pelvis - Impression: No evidence of abdominal or pelvic metastatic disease. Incidental findingsin the abdomen and pelvis. CT chest 11/16/19 - Impression: No evidence of pulmonary embolic disease. No gross evidence of intrathoracic metastatic disease in a patient with a history of breast carcinoma. H. CT c/a/p 06/25/20 - Impression: 1. Stable CT scan of the abdomen and pelvis 2. 3 mm pulmonary nodule in the superior segment of the left lower lobe 3. Centrilobular emphysema 4. Otherwise stable CT scan of the chest CT chest 10/27/20 - Impression: 1. Stable bilateral pulmonary findings. No new ominous pulmonary nodules nor new significant intrathoracic adenopathy 2. No new significant osseous lesions 3. Small retrocardiac hiatal hernia noted CT 05/11/21 - Impression 1. Compared to the previous study June 2020 there is again noted evidence of partial right hemicolectomy. There is no bowel obstruction. No free air. No abscess. No obvious lymphadenopathy. 2. Slight thickening of the left adrenal gland is again noted. 3. No new intrathoracic findings evident. Previously present mild infiltrate in the lingular segment of the left lung is unchanged. No new pulmonary nodules nor pleural effusions, no intrathoracic adenopathy 4. No significant osseous lesions I. Colonoscopy 12/30/21 Path - Final Diagnosis A. COLON, TRANSVERSE, POLYP, BIOPSY: - Sessile serrated adenoma. ?? B. RECTUM, POLYP, BIOPSY: - Hyperplastic polyp. J. CT c/a/p 06/25/22 - Impression: No evidence of metastatic disease the chest, abdomen, pelvis in a patient with a history of [...] fracture. 10. Genetic testing 08/2018 - Result: [employer] Common Hereditary Cancers Panel showed no mutation was detected. ??This means that Kelly does not carry a mutation in the genes detectable by this test. ??The following genes were evaluated for sequence changes and exonic deletions/duplications: APC, PALLAVI, AXIN2, BARD1, BMPR1A, BRCA1, BRCA2, BRIP1, CDH1, CDK4, CDKN2A (p14ARF), CDKN2A ([id number]), CHEK2, CTNNA1, DICER1, EPCAM (EPCAM: Deletion/duplication testing only ([id number]), GREM1 (GREM1: Promoter region deletion/duplication testing only.), KIT, MEN1, MLH1, MSH2, MSH3, MSH6, MUTYH, NBN, NF1, PALB2, PDGFRA, PMS2, POLD1, POLE, PTEN, RAD50, RAD51C, RAD51D, SDHB, SDHC, SDHD, SMAD4, SMARCA4, STK11, TP53, TSC1, TSC2, VHL. ??The following genes were evaluated for sequence changes only: HOXB13 (c.251G>A, p.Tzf30Fzt variant only), NTHL1 (NTHL1: Deletion/duplication analysis is not offered for this gene ([id number]), and SDHA. ??We are enclosing a printed copy of Kelly's test results. ?? HPI Ms. Strickland is seen in f/u of stage III colon cancer and cancer of the right breast. ??The history is summarized above. She is by herself in clinic today. She is feeling pretty pretty well. Her weight is a little lower which is intentional. She has made dietary changes such as eliminating snacks. She has some ongoing problems with COPD which is about the same. LONG limits how far she can walk. 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 She was treated with antibiotics. She is doing better now. She still has fatigue and intermittent headaches. Her bowels are regular. No melena or BRBPR. She has had symptoms of pins and needles discomfort as well as numbness of the thumb, index and middle finger of the left hand. It seems to bother her more at night. This may be carpal tunnel and she now wears a brace at night and this is better. 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 ??No cancer Children - 3 sons, all in good health Review of Systems Constitutional: Positive for fatigue. Negative for activity change, appetite change, fever and unexpected weight change. HENT: Negative. Respiratory: Positive for shortness of breath. Cardiovascular: Negative. Gastrointestinal: Negative. Genitourinary: Negative. Musculoskeletal: Negative. Skin: Negative. Neurological: Negative. Hematological: Negative. Psychiatric/Behavioral: Negative. Objective: Physical Exam Vitals reviewed. Constitutional: General: She is not in acute distress. HENT: Head: Normocephalic and atraumatic. Mouth/Throat: Pharynx: Oropharynx is clear. No oropharyngeal exudate. Eyes: General: No scleral icterus. Cardiovascular: Rate and Rhythm: Normal rate and regular rhythm. Pulmonary: Effort: Pulmonary effort is normal. No respiratory distress. Breath sounds: No wheezing or rales. Abdominal: General: There is no distension. Palpations: There is no mass. Tenderness: There is no abdominal tenderness. There is no guarding. Genitourinary: Comments: Breast exam - s/p bilateral mastectomy, no evidence of locally recurrent disease. Musculoskeletal: General: Swelling: Bilateral LE edema, Tr - 1+. Skin: General: Skin is warm and dry. Findings: No rash. Neurological: General: No focal deficit present. Mental Status: She is alert and oriented to person, place, and time. Coordination: Coordination normal. Psychiatric: Mood and Affect: Mood normal. Behavior: Behavior normal. Labs: WBC/ANC - 9., Hgb/Hct - 13.2/42.6, Plts - 203,000. ??BUN/Cr - 19/1.1. Alb - 3.1.?Lytes and LFTs o/w unremarkable Vit D - 47.5 on 03/27/21 CEA: 05/27/22 1.0 05/11/21 <2.0 10/27/20 1.0 06/25/20 Not done 01/24/20 1.3 11/13/19 0.8 05/14/19 1.0 02/01/19 1.2 11/07/18 0.8 08/07/18 1.3 03/31/18 1.5 12/30/17 0.9 09/08/17 0.8 05/27/17 <0.5 04/28/17 1.0 03/18/[address] personally reviewed, report above Assessment and Plan: Kelly Strickland is 82 yo, seen in f/u of colon cancer and right sided breast cancer. ?? A. Colon cancer, pT4a, N1a, ascending colon, MMR deficient: Dx'd with adenocarcinoma of the ascending colon in early 02/07 after presenting with abd pain, N/V. ??01/23/17 - right hemicolectomy. ??Path - high grade adenocarcinoma with 11/06 LN's involved, margins negative. ??CT - no evidence of metastatic disease. ?? 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 ? Adjuvant therapy with Folfox, s/p 9 cycles, the last given 08/11/17. ??Therapy stopped at that point due to cumulative toxicity, including neuropathy. ? The most recent colonoscopy was done on 12/30/[address] Alves. Two polyps were seen and removed, one of which was a sessile serrated adenoma. The other was a hyperplastic polyp. F/u was recommended CT scan done on 06/25/22 is negative for metastatic disease. As she is now 5 years from the completion of therapy, we will not plan further routine imaging. B. Cancer of the right breast, T1b, N0, int grade, ER/ND strongly positive, Her- 2/odilon negative: Right breast mammogram (s/p prior left mastectomy for DCIS) done in early 02/08 - 0.6 cm mass at 10:00 in the right breast. Bx - invasive ductal carcinoma with lobular features, int grade, ER/ND positive, Her-2/odilon negative. ?? 03/17/18 - simple mastectomy with SLN excision.. ?? Path - 0.6 cm invasive invasive ductal carcinoma, grade [...] ??In 08/10 she began anastrozole. She stopped thisin 04/2019 due to symptoms of fatigue, hot flashes and weight gain and felt much better after stopping it. We talked about options. She did not want to restart an AI because her QOL was much better off of this. Tamoxifen is an option. She is aware that there is an increased, although low, risk of thr omboembolic complications. 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 Exemestane is an option but she was clear that she would like to be followed without further therapy. She understandsthat this does increase the risk of recurrence, but has considered this and is most comfortable with this approach. The dexa scan done 05/02/18 showed normal bone density. ??She is taking calcium with vitamin D. ??She has had bilateral mastectomy and therefore is not having mammograms. Overall, she is doing well. For the colon cancer, she does not require further f/u other than consideration of f/u colonoscopy which would be due in three years. In terms of the breast cancer, this was early stage disease with low risk of recurrence. She sees her PCP, Dr. Copeland, every 6 months.I think it is reasonable for her to follow primarily with Dr. Copeland. If there are concerning symptoms or findings on testing, we are happy to see her back. She will discuss this with Dr. Copeland when she sees her next month to make sure Dr. Copeland is comfortable with that. If not, we are happy to see her in 6-12 months. documented in this encounter Plan of Treatment Not on file documented as of this encounter Visit Diagnoses Diagnosis Malignant neoplasm of ascending colon Breast cancer, stage 1, right documented in this encounter Care Teams Creative/Art Director Relationship Specialty Start Date End Date Ploy Copeland MD [address] [facility] [address] [place] [address] PCP - General 09/15/10 documented as of this encounter
--- OUTSIDE RECORDS SUMMARY | 2024-09-11 10:56 | XMS_ITS | Encounter Summary ---
Author Organization Formerly [facility], [facility] Address [facility] [place] [address] Care Team Providers Care Reticle Printer Name Role Phone Poly Copeland MD Primary Care Provider [phone] Encounter Details Date Type Department Care Team (Late st Contact Info) Description 11/16/2019 1:30 PM EST Office Visit Hematology/Oncology at [address] [address] Raffi Del Toro MD [facility] [place] [address] Roxana Salinas RN Breast cancer, stage 1, right; Malignant neoplasm of ascending colon; Dyspnea, unspecified type Social History Tobacco Use Types Packs/Day Years Used Date Smoking Tobacco: Former Smokeless Tobacco: Never Comments:quite 17 years ago Sex and Gender Information Value Date Recorded Sex Assigned at Not on file Gender Identity Female 10/25/2020 5:11 AM EST Sexual Orientation Not on file documented as of this encounter Last Filed Vital Signs Vital Sign Reading Time Taken Comments Blood Pressure 165/65 11/16/2019 1:24 PM EST Pulse 82 11/16/2019 1:24 PM EST Temperature 36.6 ??C (97.9 ??F) 11/16/2019 1 :24 PM EST Respiratory Rate 18 11/16/2019 1:24 PM EST Oxygen Saturation 99% 11/16/2019 1:2 4 PM EST Inhaled Oxygen Concentration - - Weight 99.2 kg (218 lb 12.8 oz) 11/16/2019 1:24 PM EST Height 162 cm (5' 3.78) 11/16/2019 1:2 4 PM EST Copied forward Body Mass Index 37.82 11/16/2019 1:24 PM EST documented in this encounter Progress Notes * Raffi Del Toro MD - 11/16/2019 1:30 PM EST Subjective: Patient ID: Kelly Strickland is a 79 y.o. female. Problem List: 1. Cancer of the right breast, pT1b, N0, Int grade, ER/IN +, Her-2/odilon negative A. Right breast mammogram 01/25/18 ([facility] review) - IMPRESSION/recommendation: Right breast lesion 1 BI-RADS Category 0: Assessment incomplete. ??0.6 cm mass 10:00 position 11 cmfrom the nipple. Recommend second look ultrasound to determine if this will get up graded to category 4 and require biopsy Mammogram at [facility] 01/30/18 - IMPRESSION: Highly [...] cancer cells with immunostaining) Stain intensity: Strong IN immunoreactivity: Positive ( ??>90% cancer cells with [...] Type: ?? Invasive ductal carcinoma ?Histologic Grade (Aurelia Histologic Score) ? Glandular (Acinar) / Tubular [...] and ??<= 200 cells): 0 ?Number of [place] Nodes Examined: ?2 Pathologic Stage Classification (pTNM, [...] process. B. 01/23/17 - Right hemicolectomy Path ([facility] review) - CONSULTATION CASE Outside slide(s) labeled [id number], collection date 01/23/2017. Ascending colon, cecum, terminal [...] patient with a history of breast carcinoma. 3. DCIS of the left breast, diagnosed in 2006. ??S/p mastectomy. ??No further therapy 4. HTN 5. COPD 6. S/p cholecystectomy 7. S/p hysterectomy 8. S/p bilateral TKA 9. Dexa scan 05/02/18 - Conclusion: Findings consistent with normal bone density. ??Lateral vertebral shows no evidence of a vertebral compression fracture. 10. Genetic testing 08/2018 - Result: [facility] Common Hereditary Cancers Panel showed no mutation was detected. ??This means that Kelly does not carry a mutation in the genes detectable by this test. ??The following genes were evaluated for sequence changes and exonic deletions/duplications: APC, PALLAVI, AXIN2, BARD1, BMPR1A, BRCA1, BRCA2, BRIP1, CDH1, CDK4, CDKN2A (p14ARF), CDKN2A (z47LQH6u), CHEK2, CTNNA1, DICER1, EPCAM (EPCAM: Deletion/duplication testing only ([id number]), GREM1 (GREM1: Promoter region deletion/duplication testing only.), KIT, MEN1, MLH1, MSH2, MSH3, MSH6, MUTYH, NBN, NF1, PALB2, PDGFRA, PMS2, POLD1, POLE, PTEN, RAD50, RAD51C, RAD51D, SDHB, SDHC, SDHD, SMAD4, SMARCA4, STK11, TP53, TSC1, TSC2, VHL. ??The following genes were evaluated for sequence changes only: HOXB13 (c.251G>A, p.Fyf68Kto variant only), NTHL1 (NTHL1: Deletion/duplication analysis is not offered for this gene ([id number]), and SDHA. ??We are enclosing a printed copy of Kelly's test results. ?? HPI Ms. Strickland is seen in f/u of stage III colon cancer and cancer of the right breast. ??The history is summarized above. On presentation today, she is by herself. ??She has some troublesome symptoms. She has a cough and SOB. This began in late summer or early fall and has become progressively. She can't make her bed without being out of breath and if she talks for too long she will have some trouble breathing. When she coughs, she sometimes brings up nothing and other times brings up some sputum which may be a little yellow tinged. She has bilateral LE edema, right more than left. It is not typical for her to have this. No LE pain. No fevers or chills. She has an intermittent dull ache in her mid chest, worse with activity. If she stops and rests, it gets better. It is not affected by eating. No radiation of the discomfort to her jaw her arm. No diaphoresis and no nausea. She does note wheezing on occasion.Her bowels are regular. No melena or BRBPR. No myalgias or arthralgias. Soc Hx: , lives alone in [place], [place] Tob - Quit 17 years ago Etoh - None Works [employer] Fam Hx: Father - at age 81, [...] for shortness of breath. Cardiovascular: Negative. Gastrointestinal: Negative for blood in stool (resolved). Genitourinary: Negative. Musculoskeletal: Negative. Skin: Negative. Neurological: Negative. Hematological: Negative. Psychiatric/Behavioral: Negative. Objective: Physical Exam Vitals signs reviewed. Constitutional: General: She is not in acute distress. Appearance: She is well-developed. HENT: Head: Normocephalic and atraumatic. Eyes: General: No scleral icterus. Cardiovascular: Rate and Rhythm: Normal rate and regular rhythm. Pulmonary: Effort: Pulmonary effort is normal. No respiratory distress. Breath sounds: No wheezing or rales. Abdominal: General: There is no distension. Palpations: There is no mass. Tenderness: There is no abdominal tenderness. There is no guarding. Genitourinary: Comments: Breast exam - s/p bilateral mastectomy. No evidence of locally recurrent disease. Musculoskeletal: General: Swelling (trace to 1+ bilateral) present. Lymphadenopathy: Cervical: No cervical adenopathy. Upper Body: Right upper body: No supraclavicular adenopathy. Left upper body: No supraclavicular adenopathy. Skin: General: Skin is warm and dry. Findings: No rash. Neurological: Mental Status: She is alert and oriented to person, place, and time. Labs: WBC/ANC - 7.05/5330, Hgb/Hct - 13.7/43.8, Plts - 239,000. ??BUN/Cr - 18/0.97. ?Lytes and LFTs unremarkable. Lipid panel 05/02/18 - Total chol - 211, LDL - 135, HDL - 41, Triglycerides - 193 CEA: 11/13/19 0.8 05/14/19 1.0 02/01/19 1.2 11/07/18 [...] plan was for f/u in three years. When seen in 04/2019, she mentioned blood per rectum. She saw Dr. Alves and was found to have hemorrhoids. The bleeding stopped and has not recurred. I will plan to see her in four months with labs and a CT which will be a year from the last one. (F/u plan - CT scans every 6 months for the first two years, then annually out to 5 years, unless needed sooner based on clinical assessment). B. Cancer of the right breast, T1b, N0, int grade, ER/IN strongly positive, Her- 2/odilon negative: Shehad a right breast mammogram (s/p prior left mastectomy for DCIS) done in early 02/08 which showed a0.6 cm mass at 10:00 in the right breast. Biopsy showed invasive ductal carcinoma with lobular features, int grade, ER/IN positive and Her-2/odilon negative. ??On 03/17/18 she [...] a stroke and she is very clear thatif there is the slightest risk of that, she does not want to take the medication. Exemestane [...] above. ??This is followed by Dr. Copeland. Of concern today is the progressive dyspnea that she has had. It sounds as though this has been worsening over the course of weeks to months. She has new bilateral LE edema. A CTA of the chest was done today. There is no evidence pulmonary emboli or of metastatic disease. There is some scarring andmild emphysematous changes. She has had some chest discomfort on occasion and a cardiac component is possible. Dr. Copeland was not available today but I spoke with madhu Simon in the office. They will try to see her next week for evaluation. I will plan to see her in three months. The next CT c/a/p would be planned in 6 months, ie a year from the last one. documented in this encounter Plan of Treatment Not on file documented as of this encounter Visit Diagnoses Diagnosis Breast cancer, stage 1, right Malignant neoplasm of ascending colon Dyspnea, unspecified type documented in this encounter Care Teams Reticle Printer Relationship Specialty Start Date End Date Poly Copeland MD [address] [place] [address] PCP - General 09/15/10 documented as of this encounter
--- OUTSIDE RECORDS SUMMARY | 2024-09-11 10:56 | XMS_ITS | Encounter Summary ---
Author Organization [facility] [address] Care Team Providers Care Vp Patient Name Role Phone Poly oCpeland MD Primary Care Provider [phone] Encounter Details Date Type Department Care Team (Late st Contact Info) Description 05/11/2021 1:40 PM EDT Ancillary Procedure Radiology Library at [facility] [place] [id number] Poly Copeland MD [facility] [address] [facility] [address] [place], [place] [id number] Social History Tobacco Use Types Packs/Day Years [...] STORAGE ONLY CT CHEST ABDOMEN PELVIS Routine 05/11/2021 1:38 PM EDT documented in this encounter Results * Film Library- Storage Only CT Chest Abdomen Pelvis (05/11/2021 1:38 PM EDT) Narrative [facility] - 05/11/2021 1:38 PM EDT This exam is auto-finalizing. It's purpose is for storage only. Poly Copeland MD [facility] FILM LIBRARY ORD ERABLES DH [place], [place] documented in this encounter Visit Diagnoses Not on filedocumented in this encounter Care Teams Vp Patient Relationship Specialty Start Date End Date Poly Copeland MD [address] [place] [address] PCP - General 09/15/10 documented as of this encounter
--- OUTSIDE RECORDS SUMMARY | 2024-09-11 10:56 | XMS_ITS | Encounter Summary ---
Author Organization [facility] [place] [address] Care Team Providers Care Sprinkler Fitter Apprentice Name Role Phone Poly Copeland MD Primary Care Provider [phone] Encounter Details Date Type Department Care Team (Late st Contact Info) Description 10/13/2018 6:00 PM EST Ancillary Procedure Radiology Library at [facility] [place] [address] Mary Duque APRN [address] [place] [address] [place] [address] Social History Tobacco Use Types Packs/Day Years [...] STORAGE ONLY CT CHEST ABDOMEN PELVIS Routine 10/13/2018 5:55 PM EST documented in this encounter Results * Film Library- Storage Only CT Chest Abdomen Pelvis (10/13/2018 5:55 PM EST) Narrative [facility] - 10/13/2018 5:55 PM EST This exam is for storage only and is auto-finalizing. Mary Duque APRN [facility] FILM LIBRARY ORD ERABLES [facility] [place] documented in this encounter Visit Diagnoses Not on filedocumented in this encounter Care Teams Sprinkler Fitter Apprentice Relationship Specialty Start Date End Date Poly Copeland MD [address] [place] [address] [address] [facility] [address] [place] [address] PCP - General 09/15/10 documented as of this encounter
--- OUTSIDE RECORDS SUMMARY | 2024-09-11 10:56 | XMS_ITS | Encounter Summary ---
[place] [address] Care Team Providers Care Wet Press Tender Name Role Phone Poly Copeland MD Primary Care Provider [phone] Reason for Referral * Diagnostic Test (Routine) - Closed Specialty Diagnoses / Procedures Referred By Contac t Referred To Contact Radiology Diagnoses Malignant neoplasm of right female breast, unspecified estrogen receptor status, unspecified site of breast Procedures NM [place] Node Injection Breast wo Imaging Samantha Mayen MD [facility] [place] [address] [facility] [place] [address] Referral ID Status Reason Start Date Expiration Date V isits Requested Visits Authorized [id number] Closed Specialty Service Requested 03/02/2018 03/02/2019 1 1 Reason for Visit * Diagnostic Test (Routine) - Closed Specialty Diagnoses / Procedures Referred By Contac t Referred To Contact Radiology Diagnoses Malignant neoplasm of right female breast, unspecified estrogen receptor status, unspecified site of breast Procedures NM [place] Node Injection Breast wo Samantha Mccullough MD [facility] [place] [address] [facility] [place] [address] Referral ID Status Reason Start Date Expiration Date V isits Requested Visits Authorized [id number] Closed Specialty Service Requested 03/02/2018 03/02/2019 1 1 Encounter Details Date Type Department Care Team (Latest Contact Info) Description 03/17/2018 9:10 AM EDT - 03/17/2018 9:58 AM EDT Hospital Encounter Nuclear Medicine at [facility] [place] [address] Samantha Mayen MD [facility] [place] [place] [address] Malignant neoplasm of right female breast, unspecified estrogen receptor status, unspecified site of breast Discharge Disposition: Home Social History Tobacco Use [...] 300 mg (750 mg) Chew 09/30/2010 11/16/2019 oxyCODONE (ROXICODONE) 5 mg Tablet Take 1 tablet by mouth every 4 hours as needed for Pain. 10 tablet 03/17/2018 04/05/2018 documented as of this encounter Plan of Treatment Not on file documented as of this encounter Procedures Procedure Name Priority Date/Time Associated Diagnosis Comments NM SENTINEL NODE INJECTION BREAST WITHOUT IMAGING Routine 03/17/2018 9:51 AM EDT Malignant neoplasm of right female breast, unspecified estrogen receptor status, unspecified site of breast documented in this encounter Results * NM [place] Node Injection Breast wo Imaging (03/17/2018 9:51 AM EDT) Anatomical Region Laterality Modality Nuclear Medicine Impressions 03/17/2018 1:18 PM EDT [place] node injections performed without complication. Narrative 03/17/2018 1:18 PM EDT EXAMINATION: NM SENTINEL NODE INJECTION BREAST WO IMAGING CLINICAL HISTORY: PLEASE INJECT RIGHT BREAST FOR LYMPHATIC MAPPING TECHNIQUE: Technetium-99m filtered sulfur colloid was administered in divided doses totaling 1.8 mCi in the right breast. COMPARISON: None FINDINGS: No imaging was performed. The patient left the department in good condition. Procedure Note Srinivas Monreal MD - 03/17/2018 EXAMINATION: NM SENTINEL NODE INJECTION BREAST WO IMAGING CLINICAL HISTORY: PLEASE INJECT RIGHT BREAST FOR LYMPHATIC MAPPING TECHNIQUE: Technetium-99m filtered sulfur colloid was administered individed doses totaling 1.8 mCi in the right breast. COMPARISON: None FINDINGS: No imaging was performed. The patient left the department ingood condition. IMPRESSION [place] node injections performed without complication. Samantha Mayen MD [facility] [place] ORDERABLES documented in this encounter Visit Diagnoses Diagnosis Malignant neoplasm of right female breast, unspecified estrogen receptor status, unspecified site of breast documented in this encounter Administered Medications Inactive Administered Medications - up to 3 most recent administrations Medication Order MAR Action Action Date Dose Rate Site technetium (Tc-99m) sulfur colloid injection 1.8 mCi 1.8 mCi, Intravenous, ONCE PRN, 1 dose, Starting on Tue03/17/18 at 0945, Until 03/17/18 at 0945, Per Protocol, RT Breast, Routine Given 03/17/2018 9:45 AM EDT 1.8 mCi documented in this encounter Care Teams Wet Press Tender Relationship Specialty Start Date End Date Poly Copeland MD [address] [place] [address] PCP - General 09/15/10 documented as of this encounter
--- OUTSIDE RECORDS SUMMARY | 2024-09-11 10:56 | XMS_ITS | Encounter Summary ---
Author Organization [facility] [place] [address] Care Team Providers Care Practice Management Consultant Name Role Phone Poly Copeland MD Primary Care Provider [phone] Encounter Details Date Type Department Care Team (Late st Contact Info) Description 05/08/2020 Telephone [place] [phone] Wendie Heart Social History Tobacco Use Types Packs/Day Years Used Date Smoking Tobacco: Former Smokeless Tobacco: Never Comments:quite 17 years ago Sex and Gender Information Value Date Recorded Sex Assigned at Not on file Gender Identity Female 10/25/2020 5:11 AM EST Sexual Orientation Not on file documented as of this encounter Miscellaneous Notes * Telephone Encounter - Wendie Mary - 05/08/2020 3:48 PM EDT Called Kelly to reschedule her follow up that she previously canceled with Selin Lucia. She declined follow up in Gen Surg, because she see's her Primary care provider and Dr. Del Toro. documented in this encounter Plan of Treatment Not on file documented as of this encounter Visit Diagnoses Not on filedocumented in this encounter Care Teams Practice Management Consultant Relationship Specialty Start Date End Date Poly Copeland MD [address] [place], [place] [address] PCP - General 09/15/10 documented as of this encounter
--- OUTSIDE RECORDS SUMMARY | 2024-09-11 10:56 | XMS_ITS | Encounter Summary ---
Author Organization [facility]ly [place] [address] Care Team Providers Care Auto Crane Driver Name Role Phone Poly Copeland MD Primary Care Provider [phone] Encounter Details Date Type Department Care Team (Late st Contact Info) Description 09/18/2018 Telephone Hematology [place] [phone] Britt Hoover LGC [facility] DR HEMATOLOGY/[place] [address] Social History Tobacco Use Types Packs/Day Years Used Date Smoking Tobacco: Former Smokeless Tobacco: Never Comments:quite 17 years ago Sex and Gender Information Value Date Recorded Sex Assigned at Not on file Gender Identity Female 10/25/2020 5:11 AM EST Sexual Orientation Not on file documented as of this encounter Miscellaneous Notes * Telephone Encounter - Britt Hoover LGC - 09/18/2018 10:46 AM EST Left message asking Kelly to call me back to go over her genetic test results. documented in this encounter Plan of Treatment Not on file documented as of this encounter Visit Diagnoses Not on filedocumented in this encounter Care Teams Auto Crane Driver Relationship Specialty Start Date End Date Poly Copeland MD [address] [place] [address] PCP - General 09/15/10 documented as of this encounter
--- OUTSIDE RECORDS SUMMARY | 2024-09-11 10:56 | XMS_ITS | Encounter Summary ---
Author Organization [place] [address] Care Team Providers Care Head Turning Machine Operator Name Role Phone Poly Copeland MD Primary Care Provider [phone] Encounter Details Date Type Department Care Team (Late st Contact Info) Description 06/16/2018 8:15 AM EDT Office Visit Hematology/Oncology at [address] [phone] Mary Duque, NURSING INFORMATICS CLINICAL ANALYST [address] [facility] [place] [address] Malignant neoplasm of right breast in female, estrogen receptor positive, unspecified site of breast; Malignant neoplasm of ascending colon Social History [...] Sign Reading Time Taken Comments Blood Pressure 127/62 06/16/2018 8:17 AM EDT Pulse 74 06/16/2018 8:17 AM EDT Temperature 36.6 ??C (97.9 ??F) 06/16/2018 8:17 AM ED T Respiratory Rate 18 06/16/2018 8:17 AM EDT Oxygen Saturation 100% 06/16/2018 8:17 AM EDT Inhaled Oxygen Concentration - - Weight 98.7 kg (217 lb 9.6 oz) 06/16/2018 8:17 A M EDT Height 162 cm (5' 3.78) 06/16/2018 8:17 AM EDT copied Body Mass Index 37.61 06/16/2018 8:17 AM EDT documented in this encounter Progress Notes * Dunia Mary A, NURSING INFORMATICS CLINICAL ANALYST - 06/16/2018 8:15 AM EDT Subjective: Patient ID: Kelly Strickland is a 78 y.o. female. Problem List: 1. Cancer of the right breast, pT1b, N0, Int grade, ER/ME +, Her-2/odilon negative A. Right breast mammogram 01/25/18 ([facility] review) - IMPRESSION/recommendation: Right breast lesion 1 BI-RADS Category 0: Assessment incomplete. 0.6 cm mass 10:00 position 11 cm from the nipple. Recommend second look ultrasound to determine if this will get up graded to category4 and require biopsy Mammogram at [facility] 01/30/18 - IMPRESSION: Highly suspicious 0.7 cm [...] cancer cells with immunostaining) Stain intensity: Strong ME immunoreactivity: Positive ( ??>90% cancer cells with [...] and ??<= 200 cells): 0 ?Number of [place] Nodes Examined: ?2 Pathologic Stage Classification (pTNM, [...] process. B. 01/23/17 - Right hemicolectomy Path ([facility] review) - CONSULTATION CASE Outside slide(s) labeled [id number], collection date 01/23/2017. Ascending colon, cecum, terminal [...] right breast. The history is summarized above. On presentation today, she is by herself. She is doing well overall. Her bowels are regular. Her energy level is good and she is enjoying the summer and knitting lots of sweaters. She uses a treadmill every couple of hours to keep moving and eating plenty of fruits and vegetables. She has not noticed any s/e from the Femara until questioned closely when she realized she might have had a couple ofhot flashes. 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 Musculoskeletal: Negative. Skin: Negative. Neurological: Positive for numbness (tingling of fingers) and headaches (largely gone). Hematological: Negative. Psychiatric/Behavioral: Negative. BP 127/62 (Patient Position: Sitting) Pulse 74 Temp 36.6 ??C (97.9 ??F) (Oral) Resp 18 Ht 162 cm (5' 3.78) Comment: copied Wt 98.7 kg (217 lb 9.6 oz) SpO2 100% BMI 37.61 kg/m2 Wt Readings from Last 3 Encounters: 06/16/18 98.7 kg (217 lb 9.6 oz) 05/05/18 98.9 kg (218 lb) 04/14/18 98 kg (216 lb) Objective: Physical Exam Constitutional: She is [...] Her behavior is normal. Vitals reviewed. Labs: 06/13/18 CBC: WBC 7.96 hemoglobin 13.7 Platelets 222 CMP: Sodium 143 potassium 3.7 BUN 17 creatinine 1.22 glucose 100 calcium 8.8 total bili 0.2 AST 15 ALT 19 alk phos 76 total protein 7.6 albumin 3.5 CEA 0.9 CEA: 06/13/18 0.9 03/31/18 1.5 12/30/17 0.9 09/08/17 [...] report is above, high grade adenocarcinoma with 1/14 LN's involved, margins negative. CT showed no [...] back for 3yrs. CEA back down to 0.9. (F/u plan - CT scans will be done every 6 months for the first two years, then annually out to 5 years, unless needed sooner based on clinical assessment). B. Cancer of the right breast, T1b, N0, int grade, ER/ME strongly positive, Her- 2/odilon negative: Shehas a right breast mammogram (s/p prior left mastectomy for DCIS) done in early 02/08 which showed a0.6 cm mass at 10:00 in the right breast. Biopsy showed invasive ductal carcinoma wth lobular features, int grade, ER/ME positive and Her-2/odilon negative. On 03/17/18 she [...] on Femara 2.5mg daily one month ago. She is here today to followup on initiating the Femara. She has not noted any side effects other than a few very mild hot flashes. Her labs are all normal aside from an elevated creatinine and she is drinking a lot of fluids which I encouraged. Healthy diet and exercise also enco uraged. RTC in Sep with CT scan- labs one week beforehand to determine Cr before contrast. In 09/10 she is scheduled to meet with our Genetics Counselor Mary Duque, MSN, TALENT PARTNER, AOCN Hematology/Oncology Nurse Practitioner [place], [place] [phone] documented in this encounter Plan of Treatment Not on file documented as of this encounter Procedures Procedure Name Priority Date/Time Associated Diagnosis Comments DIAGNOSTIC RADIOLOGY SCAN 03/17/2018 12:00 AM EDT documented in this encounter Results * SCAN DOC: DIAGNOSTIC RADIOLOGY (03/17/2018 12:00 AM EDT) Anatomical Region Laterality Modality Other Narrative 03/17/2018 12:00 AM EDT Ordered by an unspecified provider. Scanning Provider MEDIA MGR SCAN EXT O RDR/RSLT documented in this encounter Visit Diagnoses Diagnosis Malignant neoplasm of right breast in female, estrogen receptor positive, unspecified site of breast Malignant neoplasm of ascending colon documented in this encounter Care Teams Head Turning Machine Operator Relationship Specialty Start Date End Date Poly Copeland MD [address] [facility] [address] [place] [address] PCP - General 09/15/10 documented as of this encounter
--- OUTSIDE RECORDS SUMMARY | 2024-09-11 10:56 | XMS_ITS | Encounter Summary ---
[place] [address] Care Team Providers Care Diesel Scoop Operator Name Role Phone Poly Copeland MD Primary Care Provider Reason for Referral * Diagnostic Test (Routine) - Closed Specialty Diagnoses / Procedures Referred By Contac t Referred To Contact Cardiology Diagnoses Ascending aorta dilation Hypertension, unspecified type Procedures Mobile Echo Poly Copeland MD [address] [place] [address] [facility] [place] [address] Referral ID Status Reason Start Date Expiration Date V isits Requested Visits Authorized [id number] Closed Specialty Service Requested 10/13/2023 10/12/2024 1 1 Reason for Visit * Diagnostic Test (Routine) - Closed Specialty Diagnoses / Procedures Referred By Contac t Referred To Contact Cardiology Diagnoses Ascending aorta dilation Hypertension, unspecified type Procedures Mobile Echo Poly Copeland MD [address] [place] [address] [facility] [place] [address] Referral ID Status Reason Start Date Expiration Date V isits Requested Visits Authorized [id number] Closed Specialty Service Requested 10/13/2023 10/12/2024 1 1 Encounter Details Date Type Department Care Team (Late st Contact Info) Description 10/13/2023 1:22 PM EST - 10/13/2023 11:59 PM EST Hospital Encounter [place] [address] Poly Copeland MD [address] [place] [address] Ascending aorta dilation; Hypertension, unspecified type Discharge Disposition: Home Social History Tobacco Use [...] potassium chloride (K-DUR/KLOR-CON) 20 mEq Tab Sust.Rel. Particle/CrystalIndicati ons:Hypokalemia Take 1 tablet by mouth daily. 30 [...] D3, (VITAMIN D) 1,000 unit Cap 09/30/2010 Toviaz 8 mg Tablet Sustained Release 24 hr TAKE ONE TABLET BY MOUTH EVERY DAY 09/09/2021 albuteroL 90 mcg/actuation HFA Aerosol Inhaler Inhale 2 puffs into the lungs every 4 hours as needed for Wheezing. Use with spacer fluticasone/umeclidin/vi lanter (TRELEGY ELLIPTA INHL) Inhale into the lungs daily. 1 puff daily calcium-vitamin D3 600 mg(1,500mg) -200 unit Tablet Take 2 tablets by mouth. documented as of this encounter Plan of Treatment Not on file documented as of this encounter Procedures Procedure Name Priority Date/Time Associated Diagnosis Comments ECHO COMPLETE Routine 10/13/2023 3:26 PM EST Ascending aorta dilation Hypertension, unspecified type documented in this encounter Results * ECHO COMPLETE (10/13/2023 3:26 PM EST) Anatomical Region Laterality Modality Other 10/13/2023 7:40 AM EST Narrative 10/13/2023 4:28 PM EST 1 [place] [address] ? Echocardiogram Report Name: KELLY QUIÑONES ? Study Date: 10/13/2023 07:40 AMBP: 150/90 mmHg ? Patient Location: : 1940 ? Height: 160 cm ? Account: [id number] Age: 83 yrs ? Weight: 98 kg Gender: Female ?BSA: 2.0 m2 Ordering Physician: POLY COPELAND Referring Physician: POLY COPELAND Performed By: Shante Orellana RDCS Reason For Study: Ascending aorta dilation, Hypertension, unspecified type Exam Location: [facility]. Interpretation Summary Left ventricle is of normal size and systolic function. Left ventricular ejection fraction is estimated visually at 60-65%. There are no segmental wall motion abnormalities. Normal right ventricle. Mild aortic stenosis. Mean AV gradient 9 mmHg. NOEMY by continuity is 1.5 cm2. Mild mitral stenosis. Mean MV gradient 6 mmHg at HR 72 BPM. Mitral valve area is 2.9 cm2. No prior studies available for direct comparison. Procedure Complete-[id number]. Suboptimal quality. This study is limited because of body habitus. This study is limited because the patient was unable to turn. There is normal sinus rhythm. Left Ventricle Left ventricle is of normal size. Wall thickness is normal. There is no left ventricular outflow tract obstruction. There is no ventricular septal defect. Left ventricular systolic function is normal. Left ventricular ejection fraction is estimated visually at 60-65%. There are no segmental wall motion abnormalities. Right Ventricle The right ventricle is of normal size. Right ventricular systolic function is normal. Left Atrium The left atrium is normal. There is no evidence for a patent foramen ovale. Right Atrium The right atrium is normal. Aortic Valve The aortic valve is tricuspid. There is mild aortic stenosis. The mean gradient across the aortic valve is 8.8 mmHg. The aortic valve area calculated using the continuity equation is 1.5 cm^2. There is no aortic regurgitation. Mitral Valve The mitral valve leaflets are thickened. There is mitral annular calcification. There is mild mitral stenosis. The estimated mean gradient across the mitral valve is 5.7 mmHg . The mitral valve area using the pressure half-time is 2.9 cm2. There is trace mitral regurgitation. Tricuspid Valve The tricuspid valve is structurally normal. There is no tricuspid stenosis. There is mild tricuspid regurgitation. Pulmonic Valve The pulmonic valve appears to be structurally normal. There is no valvular pulmonic stenosis. There is mild pulmonic valve regurgitation. Great Arteries The diameter at the level of the sinuses of Valsalva is 2.7 cm. The maximum diameter of the proximal ascending aorta is 3.2 cm. No abnormalities of the pulmonary artery are identified. Venous Inferior vena cava is normal in size. Inferior vena cava collapse greater than 50% with respiration. Pericardium/Pleural The pericardium appears normal. A pericardial fat pad is present. Hemodynamics The peak right ventricular systolic pressure is 25 mmHg. The estimated right atrial pressure is 3mmHg. Left ventricular diastolic function is abnormal. ? 2D Measurements ? Volumes ?IVSd: 0.98 cm ?LA Volume Index: ?LVIDd: 4.7 cm ?LVIDs: 2.4 cm ?22.4 ml/m2 ?LVPWd: 0.91 cm ? SV(LVOT): 76.0 ml ? LV Stroke Volume: 74.9 ml ?LV mass(C)d: 154.7 grams ? SI(LVOT): 38.1 ml/m2 ?LV mass(C)dI: 77.6 grams/m2 ?Ao root diam: 2.7 cm ?Ao root diam index: 1.4 ?asc Aorta Diam: 3.2 cm ?LVOT diam: 1.8 cm ?TAPSE_phl: 2.6 cm Doppler ?3D/Strain/TomTec LV V1 VTI: 30.4 cm ?LV GLS (S3P): -17.3 % LVOT max Velocity: 117.0 cm/sec Ao V2 VTI: 52.2 cm Ao Max: 203.5 cm/sec Ao valve max: 16.7 mmHg Ao valve mean: 8.8 mmHg MV E max felipe: 163.4 cm/sec MV A max felipe: 153.9 cm/sec MV E/A: 1.1 MV dec time: 0.18 sec MV mean P.7 mmHg Lat Peak E' Felipe: 10.2 cm/sec E/ e' (lat): 16.0 Med Peak E' Felipe: 7.6 cm/sec E/e' (med): 21.6 E/e' Average: 18.8 NOEMY(I,D): 1.5 cm2 Dimensionless index Aov: 0.58 TR max felipe: 246.3 cm/sec RVSP(TR): 27.5 mmHg I ?WMSI = 1.00 ? % Normal = 100 ?Segments ??Size X - Cannot ?2 - ?4 - ?1-2 ? small Interpret ?1 - Normal ?? Hypokinetic 3 - Akinetic Dyskinetic ?? 3-5 ? moderate 5 - ? 6-14 ?large Aneurysmal ?15-16 ?? diffuse Procedure Note Marc Tan MD - 10/13/2023 1 [place] [address] Echocardiogram Report Name: KELLY QUIÑONES Study Date:10/13/2023 07:40 AMBP: 150/90 mmHg Patient Location: : 1940 Height: 160 cm Account: [id number] Age: 83 yrs Weight: 98 kg Gender: Female BSA: 2.0 m2 Ordering Physician: POLY COPELAND Referring Physician: POLY COPELAND Performed By: Shante Orellana RDCS Reason For Study: Ascending aorta dilation, Hypertension, unspecifiedtype Exam Location: [facility]. Interpretation Summary Left ventricle is of normal size and systolic function. Left ventricularejection fraction is estimated visually at 60-65%. There are no segmental wallmotion abnormalities. Normal right ventricle. Mild aortic stenosis. Mean AV gradient 9 mmHg. NOEMY by continuity is 1.5cm2. Mild mitral stenosis. Mean MV gradient 6 mmHg at HR 72 BPM. Mitral valvearea is 2.9 cm2. No prior studies available for direct comparison. Procedure Complete-[id number]. Suboptimal quality. This study is limited because of bodyhabitus. This study is limited because the patient was unable to turn. There isnormal sinus rhythm. Left Ventricle Left ventricle is of normal size. Wall thickness is normal. There is noleft ventricular outflow tract obstruction. There is no ventricular septaldefect. Left ventricular systolic function is normal. Left ventricular ejectionfraction is estimated visually at 60-65%. There are no segmental wall motionabnormalities. Right Ventricle The right ventricle is of normal size. Right ventricular systolic functionis normal. Left Atrium The left atrium is normal. There is no evidence for a patent foramenovale. Right Atrium The right atrium is normal. Aortic Valve The aortic valve is tricuspid. There is mild aortic stenosis. The meangradient across the aortic valve is 8.8 mmHg. The aortic valve area calculatedusing the continuity equation is 1.5 cm^2. There is no aortic regurgitation. Mitral Valve The mitral valve leaflets are thickened. There is mitral annularcalcification. There is mild mitral stenosis. The estimated mean gradient across themitral valve is 5.7 mmHg . The mitral valve area using the pressure half-time is 2.9cm2. There is trace mitral regurgitation. Tricuspid Valve The tricuspid valve is structurally normal. There is no tricuspidstenosis. There is mild tricuspid regurgitation. Pulmonic Valve The pulmonic valve appears to be structurally normal. There is novalvular pulmonic stenosis. There is mild pulmonic valve regurgitation. Great Arteries The diameter at the level of the sinuses of Valsalva is 2.7 cm. Themaximum diameter of the proximal ascending aorta is 3.2 cm. No abnormalities ofthe pulmonary artery are identified. Venous Inferior vena cava is normal in size. Inferior vena cava collapse greaterthan 50% with respiration. Pericardium/Pleural The pericardium appears normal. A pericardial fat pad is present. Hemodynamics The peak right ventricular systolic pressure is 25 mmHg. The estimatedright atrial pressure is 3mmHg. Left ventricular diastolic function isabnormal. 2D Measurements Volumes IVSd: 0.98 cm LA VolumeIndex: LVIDd: 4.7 cm LVIDs: 2.4 cm 22.4 ml/m2 LVPWd: 0.91 cm SV(LVOT): 76.0ml LV Stroke Volume:74.9 ml LV mass(C)d: 154.7 grams SI(LVOT): 38.1ml/m2 LV mass(C)dI: 77.6 grams/m2 Ao root diam: 2.7 cm Ao root diam index: 1.4 asc Aorta Diam: 3.2 cm LVOT diam: 1.8 cm TAPSE_phl: 2.6 cm Doppler 3D/Strain/TomTec LV V1 VTI: 30.4 cm LV GLS (S3P): -17.3 % LVOT max Velocity: 117.0 cm/sec Ao V2 VTI: 52.2 cm Ao Max: 203.5 cm/sec Ao valve max: 16.7 mmHg Ao valve mean: 8.8 mmHg MV E max felipe: 163.4 cm/sec MV A max felipe: 153.9 cm/sec MV E/A: 1.1 MV dec time: 0.18 sec MV mean P.7 mmHg Lat Peak E' Felipe: 10.2 cm/sec E/ e' (lat): 16.0 Med Peak E' Felipe: 7.6 cm/sec E/e' (med): 21.6 E/e' Average: 18.8 NOEMY(I,D): 1.5 cm2 Dimensionless index Aov: 0.58 TR max felipe: 246.3 cm/sec RVSP(TR): 27.5 mmHg I WMSI = 1.00 % Normal = 100 SegmentsSize X - Cannot 2 - 4 - 1-2small Interpret 1 - Normal Hypokinetic 3 - Akinetic Dyskinetic 3-5moderate 5 - 6-14large Aneurysmal 15-16diffuse Poly Copeland MD ECHO ORDERABLES documented in this encounter Visit Diagnoses Diagnosis Ascending aorta dilation Thoracic aortic ectasia Hypertension, unspecified type documented in this encounter Care Teams Diesel Scoop Operator Relationship Specialty Start Date End Date Poly Copeland MD [address] [place] [address] [address] [place] [address] PCP - General 09/15/10 documented as of this encounter
--- OUTSIDE RECORDS SUMMARY | 2024-09-11 10:56 | XMS_ITS | Encounter Summary ---
Author Organization [facility] Address [facility] [place] [address] Care Team Providers Care Keyboarding Teacher Name Role Phone Poly Copeland MD Primary Care Provider [phone] Encounter Details Date Type Department Care Team (Late st Contact Info) Description 10/31/2020 1:00 PM EST Office Visit Hematology/Oncology at [address] [phone] Raffi Del Toro MD [facility] [place] [address] Isis Ortiz, LOGISTICS LEAD [address] [place] [address] DR HEMATOLOGY ONCOLOGY [place], [place] [id number] Breast cancer, stage 1, right; Malignant neoplasm of ascending colon Social History [...] Sign Reading Time Taken Comments Blood Pressure 148/54 10/31/2020 12:56 PM EST Pulse 90 10/31/2020 12:56 PM EST Temperature 36.1 ??C (97 ??F) 10/31/2020 12:56 PM EST Respiratory Rate 18 10/31/2020 12:56 PM EST Oxygen Saturation 96% 10/31/2020 12:56 PM EST Inhaled Oxygen Concentration - - Weight 99.2 kg (218 lb 9.6 oz) 10/31/2020 12:56 PM EST Height 160 cm (5' 2.99) 10/31/2020 12:56 PM EST Body Mass Index 38.73 10/31/2020 12:56 PM EST documented in this encounter Progress Notes * Raffi Del Toro MD - 10/31/2020 1:00 PM EST Subjective: Patient ID: Kelly Strickland is a 80 y.o. female. Problem List: 1. Cancer of the right breast, pT1b, N0, Int grade, ER/[place] +, Her-2/odilon negative A. Right breast mammogram 01/25/18 ([facility] review) - IMPRESSION/recommendation: Right breast lesion 1 BI-RADS Category 0: Assessment incomplete. ??0.6 cm mass 10:00 position 11 cmfrom the nipple. Recommend second look ultrasound to determine if this will get up graded to category 4 and require biopsy Mammogram at [facility] 01/30/18 - IMPRESSION: Highly suspicious 0.7 [...] cancer cells with immunostaining) Stain intensity: Strong [place] immunoreactivity: Positive ( ??>90% cancer cells with [...] and ??<= 200 cells): 0 ?Number of [place] Nodes Examined: ?2 Pathologic Stage Classification (pTNM, [...] process. B. 01/23/17 - Right hemicolectomy Path ([facility] review) - CONSULTATION CASE Outside slide(s) labeled [id number], collection date 01/23/2017. Ascending colon, cecum, terminal [...] lesions 3. Small retrocardiac hiatal hernia noted 3. DCIS of the left breast, diagnosed in 2006. ??S/p mastectomy. ??No further therapy 4. HTN 5. COPD 6. S/p cholecystectomy 7. S/p hysterectomy 8. S/p bilateral TKA 9. Dexa scan 05/02/18 - Conclusion: Findings consistent with normal bone density. ??Lateral vertebral shows no evidence of a vertebral compression fracture. 10. Genetic testing 08/2018 - Result: [employer] Common Hereditary Cancers Panel showed no mutation was detected. ??This means that Kelly does not carry a mutation in the genes detectable by this test. ??The following genes were evaluated for sequence changes and exonic deletions/duplications: APC, PALLAVI, AXIN2, BARD1, BMPR1A, BRCA1, BRCA2, BRIP1, CDH1, CDK4, CDKN2A (p14ARF), CDKN2A (i53UUZ2m), CHEK2, CTNNA1, DICER1, EPCAM (EPCAM: Deletion/duplication testing only (NM_[id number]), GREM1 (GREM1: Promoter region deletion/duplication testing only.), KIT, MEN1, MLH1, MSH2, MSH3, MSH6, MUTYH, NBN, NF1, PALB2, PDGFRA, PMS2, POLD1, POLE, PTEN, RAD50, RAD51C, RAD51D, SDHB, SDHC, SDHD, SMAD4, SMARCA4, STK11, TP53, TSC1, TSC2, VHL. ??The following genes were evaluated for sequence changes only: HOXB13 (c.251G>A, p.Kpn20Ftr variant only), NTHL1 (NTHL1: Deletion/duplication analysis is not offered for this gene ([id number]), and SDHA. ??We are enclosing a printed copy of Kelly's test results. ?? HPI Ms. Strickland is seen in f/u of stage III colon cancer and cancer of the right breast. ??The history is summarized above. She is by herself in clinic today. She is feeling pretty pretty well. Her appetite is good and her weight is stable. No significant cough or SOB. Her bowels are regular. No melena or BRBPR. She has had symptoms of pins and needles discomfort as well as numbness of the thumb, index and middle fingerof the left hand. It seems to bother her more at night. Her bowels are regular with no melena or BRBPR. She has had bilateral mastectomy and has not noticed any areas of concern for local recurrence of disease. She has LE edema which is about the same. She has been very busy knitting. Soc Hx: , lives alone in [place], [place] Tob - Quit 17 years ago Etoh - None Works [employer] Fam Hx: Father - at age 81, [...] Swelling: Bilateral LE edema, Tr - 1+. Mild erythema Skin: General: Skin is warm and dry. Findings: No rash. Neurological: General: No focal deficit present. Mental Status: She is alert and oriented to person, place, and time. Coordination: Coordination normal. Psychiatric: Mood and Affect: Mood normal. Behavior: Behavior normal. Labs: WBC/ANC - 6., Hgb/Hct - 13.4/43.1, Plts - 234,000. ??BUN/Cr - 15/1.11. K - 3.3 ?Lytes and LFTs o/w unremarkable CEA: 10/27/20 1.0 06/25/20 Not done 01/24/20 1.3 11/13/19 0.8 05/14/19 1.0 02/01/19 1.2 11/07/18 0.8 08/07/18 1.3 03/31/18 1.5 12/30/17 0.9 09/08/17 0.8 05/27/17 <0.5 04/28/17 1.0 03/18/[address] personally reviewed, report above Doppler US - No evidence of deep venous thrombosis of the right lower extermity Assessment and Plan: Ms. Strickland is a 80 yo female seen in f/u of colon cancer and right sided breast cancer. ?? A. Colon cancer: Dx'd with adenocarcinoma of the ascending colon in early 02/07 after presenting with abd pain, N/V. ??01/23/17 - right hemicolectomy. ??Path - high grade adenocarcinoma with 1/14 LN's involved, margins negative. ??CT - no [...] including neuropathy. ? The CT done 05/14/19 showed no evidence of metastatic disease. ? She had a colonoscopy on 05/12/[address] Caruso which showed diverticulosis and hemorrhoids but no recurrence and no polyps mentioned. ??The plan was for f/u in three years. When seen in 04/2019, she mentioned blood per rectum. She saw Dr. Alves and was found to have hemorrhoids. The bleeding stopped and has not recurred. (F/u plan - CT scans every 6 months for the first two years, then annually out to 5 years, unless needed sooner based on clinical assessment). B. Cancer of the right breast, T1b, N0, int grade, ER/[place] strongly positive, Her- 2/odilon negative: Right breast mammogram (s/p prior left mastectomy for DCIS) done in early 02/08 - 0.6 cm mass at 10:00 in the right breast. Bx - invasive ductal carcinoma with lobular features, int grade, ER/[place] positive, Her-2/odilon negative. ?? 03/17/18 - simple [...] mastectomy and therefore is not having mammograms. The most recent lipid panel is noted above. ??This is followed by Dr. Copeland. A CT c/a/p was done on 06/25/20, report above. There were lung nodules which for the most part are stable and felt likely to represent intrapulmonary LNs. It was mentioned that there was a new tiny (3 mm) nodule in the superior segment of the LLL (for my reference - series 5/image 171). Given the very small size, it is not possible to define this further at this time. A repeat chest CT was done on 10/27/20 and is read overall as stable. The nodule in question looks less conspicuous to me. I will plan to see her in 6 months with labs and a repeat CT c/a/p at that time. Her potassium is low. She heard from Dr. Copeland and has doubled her potassium dose. documented in this encounter Plan of Treatment Not on file documented as of this encounter Visit Diagnoses Diagnosis Breast cancer, stage 1, right Malignant neoplasm of ascending colon documented in this encounter Care Teams Keyboarding Teacher Relationship Specialty Start Date End Date Poly Copeland MD [address] [place] [address] PCP - General 09/15/10 documented as of this encounter
--- OUTSIDE RECORDS SUMMARY | 2024-09-11 10:56 | XMS_ITS | Encounter Summary ---
Author Organization [facility] [place] [address] Care Team Providers Care Specialty Food Products Supervisor Name Role Phone Poly Copeland MD Primary Care Provider [phone] Encounter Details Date Type Department Care Team (Latest Contact Info) Description 01/25/2020 2:30 PM EDT TH Visit (TeleHealth) Hematology/Oncology at [address] [phone] Raffi Del Toro MD [facility] [place] [address] Roxana Salinas RN Breast cancer, stage 1, right; Malignant neoplasm of ascending colon Social History Tobacco Use Types Packs/Day Years Used Date Smoking Tobacco: Former Smokeless Tobacco: Never Comments:quite 17 years ago Sex and Gender Information Value Date Recorded Sex Assigned at Not on file Gender Identity Female 10/25/2020 5:11 AM EST Sexual Orientation Not on file documented as of this encounter Progress Notes * Raffi Del Toro MD - 01/25/2020 2:30 PM EDT Subjective: Patient ID: Kelly Strickland is a 79 y.o. female. Problem List: 1. Cancer of the right breast, pT1b, N0, Int grade, ER/RI +, Her-2/odilon negative A. Right breast mammogram 01/25/18 ([facility] review) - IMPRESSION/recommendation: Right breast lesion 1 BI-RADS Category 0: Assessment incomplete. ??0.6 cm mass 10:00 position 11 cmfrom the nipple. Recommend second look ultrasound to determine if this will get up graded to category 4 and require biopsy Mammogram at [facility] 01/30/18 - IMPRESSION: [...] cancer cells with immunostaining) Stain intensity: Strong [place] immunoreactivity: Positive ( ??>90% cancer cells with [...] Type: ?? Invasive ductal carcinoma ?Histologic Grade (Berry Histologic Score) ? Glandular (Acinar) / Tubular [...] and ??<= 200 cells): 0 ?Number of [place] Nodes Examined: ?2 Pathologic Stage Classification (pTNM, [...] process. B. 01/23/17 - Right hemicolectomy Path ([facility] review) - CONSULTATION CASE Outside slide(s) labeled [id number], collection date 01/23/2017. Ascending colon, cecum, terminal [...] fracture. 10. Genetic testing 08/2018 - Result: [employer] Common Hereditary Cancers Panel showed no mutation was detected. ??This means that Kelly does not carry a mutation in the genes detectable by this test. ??The following genes were evaluated for sequence changes and exonic deletions/duplications: APC, PALLAVI, AXIN2, BARD1, BMPR1A, BRCA1, BRCA2, BRIP1, CDH1, CDK4, CDKN2A (p14ARF), CDKN2A ([id number]), CHEK2, CTNNA1, DICER1, EPCAM (EPCAM: Deletion/duplication testing only (NM_[id number]), GREM1 (GREM1: Promoter region deletion/duplication testing only.), KIT, MEN1, MLH1, MSH2, MSH3, MSH6, MUTYH, NBN, NF1, PALB2, PDGFRA, PMS2, POLD1, POLE, PTEN, RAD50, RAD51C, RAD51D, SDHB, SDHC, SDHD, SMAD4, SMARCA4, STK11, TP53, TSC1, TSC2, VHL. ??The following genes were evaluated for sequence changes only: HOXB13 (c.251G>A, p.Jqq86Nii variant only), NTHL1 (NTHL1: Deletion/duplication analysis is not offered for this gene (NM_[id number]), and SDHA. ??We are enclosing a printed copy of Kelly's test results. ?? HPI Ms. Strickland is seen in f/u of stage III colon cancer and cancer of the right breast. ??The history is summarized above. This is a telephone enconter. She is feeling well. She has been staying home due to the coronaviruspandemic. She is eating well. She thinks she may have broken her 5th toe when she stubbed it on thebed post. Her appetite is good. She lost weight, down to 209#. She has tried to pay attention to what she is eating and she has been on the treadmill daily. Her bowels are perfect. She had an Echo a nd a stress test since her last visit and this apparently looked good with no particular areas of concern. It sounds as though the increased SOB that she had at the last visit is felt to attributableprimarily to her underlying COPD. She had PFTs repeated and says she was told that she likely will need oxygen at some point. Her bowels are regular. No melena or BRBPR. No myalgias or arthralgias. She has had bilateral mastectomy and has not noticed any areas of concern for local recurrence of disease. Soc Hx: , lives alone in [place], [place] Tob - Quit 17 years ago Etoh - None Works [employer] Fam Hx: Father - at age 81, [...] Hematological: Negative. Psychiatric/Behavioral: Negative. Objective: Physical Exam Genitourinary: Comments: Breast exam - not performed, telephone encounter Neurological: Mental Status: She is oriented to person, place, and time. Labs: WBC/ANC - 8.10/5409, Hgb/Hct - 13.9/43.6, Plts - 236,000. ??BUN/Cr - 08/11.08. ?Lytes and LFTs unremarkable. CEA: 01/24/20 1.3 11/13/19 0.8 05/14/19 1.0 02/01/19 [...] with 1/14 LN's involved, margins negative. ??CT showed no [...] the right breast, T1b, N0, int grade, ER/RI strongly positive, Her- 2/odilon negative: Shehad a right breast mammogram (s/p prior left mastectomy for DCIS) done in early 02/08 which showed a0.6 cm mass at 10:00 in the right breast. Biopsy showed invasive ductal carcinoma with lobular features, int grade, ER/RI positive and Her-2/odilon negative. ??On 03/17/18 she [...] above. ??This is followed by Dr. Copeland. Clinically, she is doing well. I will plan to see her in 3-4 months with labs and a CT which will be a year from the last one. This was a 15 minute telephone encounter, all of which was spent in direct patient communication. documented in this encounter Plan of Treatment Not on file documented as of this encounter Visit Diagnoses Diagnosis Breast cancer, stage 1, right Malignant neoplasm of ascending colon documented in this encounter Care Teams Specialty Food Products Supervisor Relationship Specialty Start Date End Date Poly Copeland MD [address] [place] [address] PCP - General 09/15/10 documented as of this encounter
--- OUTSIDE RECORDS SUMMARY | 2024-09-11 10:56 | XMS_ITS | Encounter Summary ---
Author Organization [facility] Address [facility] [place] [address] Care Team Providers Care Tool Maker Apprentice Name Role Phone Poly Copeland MD Primary Care Provider [phone] Reason for Referral * Physical Therapy (Routine) - Specialty Diagnoses / Procedures Referred By Contgail t Referred To Contact Physical Therapy Diagnoses Malignant neoplasm of right female breast, unspecified estrogen receptor status, unspecified site of breast Samantha Mayen MD [facility] [place] [address] Referral ID Status Reason Start Date Expiration Date V isits Requested Visits Authorized [id number] Evaluate and Treat 03/22/2018 09/18/2018 12 12 Encounter Details Date Type Department Care Team (Late st Contact Info) Description 03/22/2018 Orders Only [place] [phone] Samantha Mayen MD [facility] [place] [address] Malignant neoplasm of right female breast, unspecified estrogen receptor status, unspecified site of breast Social History Tobacco Use Types Packs/Day Years Used Date Smoking Tobacco: Former Smokeless Tobacco: Never Comments:quite 17 years ago Sex and Gender Information Value Date Recorded Sex Assigned at Not on file Gender Identity Female 10/25/2020 5:11 AM EST Sexual Orientation Not on file documented as of this encounter Plan of Treatment Scheduled Referrals Name Type Priority Associated Diagnoses Orde r Schedule Referral to Physical Therapy Outpatient Referral Routine Malignant neoplasm of right female breast, unspecified estrogen receptor status, unspecified site of breast Ordered: 03/22/2018 documented as of this encounter Visit Diagnoses Diagnosis Malignant neoplasm of right female breast, unspecified estrogen receptor status, unspecified site of breast documented in this encounter Care Teams Tool Maker Apprentice Relationship Specialty Start Date End Date Poly Copeland MD [address] [place] [address] PCP - General 09/15/10 documented as of this encounter
--- OUTSIDE RECORDS SUMMARY | 2024-09-11 10:56 | XMS_ITS | Encounter Summary ---
Author Organization [facility] [place] [address] Care Team Providers Care Behavioral Pediatrician Name Role Phone Poly Copeland MD Primary Care Provider [phone] Encounter Details Date Type Department Care Team (Late st Contact Info) Description 06/10/2022 Orders Only Hematology [place] [phone] Raffi Del Toro MD [facility] [place] [address] Malignant neoplasm of ascending colon Social History [...] Diagnoses Diagnosis Malignant neoplasm of ascending colon documented in this encounter Care Teams Behavioral Pediatrician Relationship Specialty Start Date End Date Poly Copeland MD [address] [place], [place] [id number] PCP - General 09/15/10 documented as of this encounter
--- OUTSIDE RECORDS SUMMARY | 2024-09-11 10:56 | XMS_ITS | Encounter Summary ---
Author Organization [facility] Address [facility] [place] [address] Care Team Providers Care Castings Drafter Name Role Phone Poly Copeland MD Primary Care Provider [phone] Reason for Visit * Reason Comments Genetic Evaluation bilateral breast can cer and colon cancer and fam hx of breast and colon cancer * Consultation (Routine) - Closed Specialty Diagnoses / Procedures Referred By Rajendra alvarez Referred To Contact Genetics / Hematology and Oncology Diagnoses Malignant neoplasm of upper-outer quadrant of right breast in female, estrogen receptor positive Genetic testing at [facility], due to b/l breast cancer and colon cancer Procedures Consult & Test Samantha Mayen MD [facility] [place] [address] Stj Hem Onc Office [address] [place] [phone] Referral ID Status Reason Start Date Expiration Date Visits Re quested Visits Authorized [id number] Closed 04/11/2018 04/11/2019 1 1 Encounter Details Date Type Department Care Team (Late st Contact Info) Description 09/06/2018 11:00 AM EST Office Visit Hematology/Oncology at [address] [phone] Britt Hoover, [facility] HEMATOLOGY/[place] [address] Ductal carcinoma in situ (DCIS) of left breast; Malignant neoplasm of ascending colon; Malignant neoplasm of lower-inner quadrant of right breast of female, estrogen receptor positive Social History Tobacco Use Types Packs/Day Years Used Date Smoking Tobacco: Former Smokeless Tobacco: Never Comments:quite 17 years ago Sex and Gender Information Value Date Recorded Sex Assigned at Not on file Gender Identity Female 10/25/2020 5:11 AM EST Sexual Orientation Not on file documented as of this encounter Progress Notes * Britt Hoover LGC - 09/06/2018 11:00 AM EST Ms. Strickland was seen by Alexandria Hoover MS [facility] in consultation at the request of Dr. Samantha Mayen to advise regarding possible heritable predisposition to cancer. I spent 30 minutes of this face to face encounter with the patient gathering medical and family history and discussing the likelihood of a genetic predisposition to cancer and the option of genetic testing. Reason for referral/Chief complaint Personal history of bilateral breast cancer and colon cancer and family history of breast, colon and brain cancer. Medical history Cancer hx and treatment: Kelly was diagnosed with ductal carcinoma of the left breast at age 68 treated with a mastectomy. At age 77, she was diagnosed with ascending colon cancer treated with a right hemicolectomy and chemotherapy. At age 78, she was diagnosed with contralateral breast cancer which was treated with a mastectomy. Her tumor was ER+/WV+/Her2-. She was started on Femara but discontinued due to side effects. She was started on another AI but also discontinued due to side effects. She will be meeting with a medical oncologist in a few weeks to discuss her options. Age at 1st menses: ? Age at 1st child: ? Menopause status: Postmenopausal; [place] w/o BSO at age 44 Hormone replacement therapy use: n/a Family History of Cancer Problem Relation Age of Onset ??? Colorectal Cancer Mother 70 ??? Breast Cancer Maternal Grandmother 70 bilateral ??? Brain Cancer Paternal Aunt 65 Maternal ethnic background is [place]ian. Paternal ethnic background is [place] and [place]ian. Genetic risk assessment Panel genetic testing for an inherited predisposition to cancer, including breast and colon, was discussed. The risks, benefits and limitations of panel genetic testing were reviewed, specifically a high rate of identifying a variant of uncertain significance (~20%), lack of knowledge of cancer risk for newly identified, moderate risk genes included in the panel and lack of effective screening, as well as cancer risk for other cancers not observed in the family. The likelihood that Kelly would be found to have a mutation in a cancer predisposition gene is high enough to offer the option ofgenetic testing. Kelly opted for testing with [employer] Common Hereditary Cancers Panel, a next generation sequencing panel that simultaneously analyzes 47 genes, including BRCA1 and BRCA2 and mismatch repair genes, that contribute to increased risk for cancer, including breast and colon. Kelly was consented. Her blood sample was drawn and sent to [facility]. Testing will take approximately 3 weeks. Kelly will be contacted via telephone once her test results become available. If positive, we will schedule an in person follow-up appointment. At that time, we will discuss with Kelly the implications that this test result may have for her, as well flaco family members. We will also provide Kelly with screening guidelines for cancer prevention and early detection, as well as answer any questions she may have. documented in this encounter Plan of Treatment Not on file documented as of this encounter Visit Diagnoses Diagnosis Ductal carcinoma in situ (DCIS) of left breast Malignant neoplasm of ascending colon Malignant neoplasm of lower-inner quadrant of right breast of female, estrogen receptor positive documented in this encounter Care Teams Castings Drafter Relationship Specialty Start Date End Date Poly Copeland MD [address] [place] [address] PCP - General 09/15/10 documented as of this encounter
--- OUTSIDE RECORDS SUMMARY | 2024-09-11 10:56 | XMS_ITS | Encounter Summary ---
Author Organization [facility] [place] [address] Care Team Providers Care Billposter Name Role Phone Poly Copeland MD Primary Care Provider [phone] Encounter Details Date Type Department Care Team (Late st Contact Info) Description 09/18/2018 Telephone Hematology [place] [phone] Britt Hoover [facility] HEMATOLOGY/[place] [address] Social History Tobacco Use Types Packs/Day Years Used Date Smoking Tobacco: Former Smokeless Tobacco: Never Comments:quite 17 years ago Sex and Gender Information Value Date Recorded Sex Assigned at Not on file Gender Identity Female 10/25/2020 5:11 AM EST Sexual Orientation Not on file documented as of this encounter Miscellaneous Notes * Telephone Encounter - Britt Hoover [facility] - 09/18/2018 4:15 PM EST This test result was discussed with the patient by phone. A copy of a letter sent to the patient containing these results is provided below. Please be advised that [place] law requires that allhealth care workers respect the confidentiality of this information and not pass it along to other health care providers, insurance companies, or individuals without the written permission of the patient. The Familial Cancer Program welcomes any questions about these matters. Our phone number is: [phone]. On September 06, 2018, Kelly underwent genetic testing for a hereditary predisposition to common hereditary cancers, including breast, gynecologic and gastrointestinal. Following are the results ofthis test. Result: [facility] Common Hereditary Cancers Panel showed no mutation was detected. This means that Palomo not carry a mutation in the genes detectable by this test. The following genes were evaluated for sequence changes and exonic deletions/duplications: APC, PALLAVI, AXIN2, BARD1, BMPR1A, BRCA1, BRCA2, BRIP1, CDH1, CDK4, CDKN2A (p14ARF), CDKN2A ([id number]), CHEK2, CTNNA1, DICER1, EPCAM (EPCAM: Deletion/duplication testing only (NM_002354.2), GREM1 (GREM1: Promoter region deletion/duplication testing only.), KIT, MEN1, MLH1, MSH2, MSH3, MSH6, MUTYH, NBN, NF1, PALB2, PDGFRA, PMS2, POLD1, POLE, PTEN, RAD50, RAD51C, RAD51D, SDHB, SDHC, SDHD, SMAD4, SMARCA4, STK11, TP53, TSC1, TSC2, VHL. The following genes were evaluated for sequence changes only: HOXB13 (c.251G>A, p.Cup69Xgq variant only), NTHL1 (NTHL1: Deletion/duplication analysis is not offered for this gene (NM_002528.6), and SDHA. We are enclosing a printed copy of Kelly's test results. Interpretation: Because the genetic basis, if any, of the bilateral breast and colon cancer in Kelly and breast and colon cancer in her family has not been identified, this negative test result does not necessarily mean that Alyssas cancers were sporadic (i.e. not attributable to an inherited predisposition). This is because of two important limitations of the test. First, not all inherited predisposition to cancer is attributable to the genes tested by this panel. Research has identified other genes that when mutated can increase one???s risk of cancer. Second, a small percentage of mutations in genestested by this panel may be missed by current technology. Additional genetic testing for Kelly or other family members is not recommended at this time. However, we recommend that Kelly recontact us from time to time to see if additional information has become available that could clarify her personal and family history. documented in this encounter Plan of Treatment Not on file documented as of this encounter Visit Diagnoses Not on filedocumented in this encounter Care Teams Billposter Relationship Specialty Start Date End Date Poly Copeland MD [address] [place] [address] PCP - General 09/15/10 documented as of this encounter
--- OUTSIDE RECORDS SUMMARY | 2024-09-11 10:56 | XMS_ITS | Encounter Summary ---
Author Organization [facility] [place] [address] Care Team Providers Care Library Consultant Name Role Phone Poly Copeland MD Primary Care Provider Encounter Details Date Type Department Care Team (Late st Contact Info) Description 03/27/2018 Telephone [place] [phone] Mimi Briones RN Social History Tobacco Use Types Packs/Day Years Used Date Smoking Tobacco: Former Smokeless Tobacco: Never Comments:quite 17 years ago Sex and Gender Information Value Date Recorded Sex Assigned at Not on file Gender Identity Female 10/25/2020 5:11 AM EST Sexual Orientation Not on file documented as of this encounter Miscellaneous Notes * Telephone Encounter - Mimi Briones RN - 03/27/2018 4:37 PM EDT I received a message from Magda Porras RN with [facility]. She is calling to report that the pt's drain is getting close to meeting criteria for removal. She requests orders be faxed to [facility] to remove the drain so they are prepared when it meets criteria. Plan: Orders faxed as well as the information sheet we give to patient's when their drains are removed. * Telephone Encounter - Mimi Briones RN - 03/27/2018 4:37 PM EDT Kelly Strickland 03/27/2018 4:37 PM Contact information for the General Surgery Nurses After clinic hours, weekday holidays or on the weekend please call and ask to speak to the Doctor semiconductor packages tester ?? You need to keep your drain site covered with bacitracin and a gauze dressing while it is draining. This usually lasts 24-48 hours. Your dressing needs to be changed when it becomes wet. A small amount of drainage is normal. ?? You may develop a seroma (which is a collection of fluid) at or around the drain site. A seroma may be firm or soft and can vary in shapes and size. This is not a medical emergency, but we would like a call if this develops. Call if you develop any of the followin. Fever greater than 100.5 or chills. 2. Continual drainage from your drain site. 3. Redness and or swelling of your drain site or surgical incision (pan the area with a permanent marker so you can tell if it is worsening). 4. Pain that is not controlled with Tylenol (acetaminophen), Advil (ibuprofen) or prescription painmedication. A copy of these instructions were given to Kelly Strickland who was able to verbalized their understanding and how to contact the clinic staff if they have any problems, questions or concerns. documented in this encounter Plan of Treatment Not on file documented as of this encounter Visit Diagnoses Not on filedocumented in this encounter Care Teams Library Consultant Relationship Specialty Start Date End Date Poly Copeland MD [address] [place] [address] PCP - General 09/15/10 documented as of this encounter
--- OUTSIDE RECORDS SUMMARY | 2024-09-11 10:56 | XMS_ITS | Encounter Summary ---
Author Organization [facility] [place] [address] Care Team Providers Care Integration Software Engineer Name Role Phone Poly Copeland MD Primary Care Provider [phone] Reason for Visit * Reason Onset Date Comments Letter/Form 05/05/2018 Request for ONc DX-type testing Encounter Details Date Type Department Care Team (Late st Contact Info) Description 05/05/2018 Telephone Hematology/Oncology at [address] [phone] Mary Granda RN Letter/Form (Request for ONc DX-type testing) Social History Tobacco Use Types Packs/Day Years Used Date Smoking Tobacco: Former Smokeless Tobacco: Never Comments:quite 17 years ago Sex and Gender Information Value Date Recorded Sex Assigned at Not on file Gender Identity Female 10/25/2020 5:11 AM EST Sexual Orientation Not on file documented as of this encounter Miscellaneous Notes * Telephone Encounter - Mary Granda RN - 05/05/2018 11:43 AM EDT Signed Onc DX testing form, demographics and office note faxed. Confirmation page received. documented in this encounter Plan of Treatment Not on file documented as of this encounter Visit Diagnoses Not on filedocumented in this encounter Care Teams Integration Software Engineer Relationship Specialty Start Date End Date Poly Copeland MD [address] [place] [address] PCP - General 09/15/10 documented as of this encounter
--- OUTSIDE RECORDS SUMMARY | 2024-09-11 10:56 | XMS_ITS | Encounter Summary ---
Author Organization [facility] Address [facility] [place] [address] Care Team Providers Care It Coordinator Name Role Phone Poly Copeland MD Primary Care Provider [phone] Encounter Details Date Type Department Care Team (Late st Contact Info) Description 07/11/2020 1:00 PM EDT Office Visit Hematology/Oncology at [address] [phone] Raffi Del Toro MD [facility] [place] [address] Isis Ortiz, FRAUD INVESTIGATOR [address] [place] [address] DR HEMATOLOGY ONCOLOGY [place], [place] [id number] Leg edema, right; Malignant neoplasm of ascending colon; Breast cancer, stage 1, right; Nodule of lower lobe of left lung Social History Tobacco Use Types Packs/Day Years Used Date Smoking Tobacco: Former Smokeless Tobacco: Never Comments:quite 17 years ago Sex and Gender Information Value Date Recorded Sex Assigned at Not on file Gender Identity Female 10/25/2020 5:11 AM EST Sexual Orientation Not on file documented as of this encounter Last Filed Vital Signs Vital Sign Reading Time Taken Comments Blood Pressure 153/69 07/11/2020 12:56 PM EDT Pulse 91 07/11/2020 12:56 PM EDT Temperature 36.1 ??C (97 ??F) 07/11/2020 12: 56 PM EDT Respiratory Rate 18 07/11/2020 12:5 6 PM EDT Oxygen Saturation 95% 07/11/2020 12: 56 PM EDT Inhaled Oxygen Concentration - - Weight 100.1 kg (220 lb 9.6 oz) 020 12:56 PM EDT Height 160 cm (5' 3) 07/11/2020 12:56 PM EDT Body Mass Index 39.08 07/11/2020 12:56 PM EDT documented in this encounter Progress Notes * Raffi Del Toro MD - 07/11/2020 1:00 PM EDT Subjective: Patient ID: Kelly Strickland is a 80 y.o. female. Problem List: 1. Cancer of the right breast, pT1b, N0, Int grade, ER/MO +, Her-2/odilon negative A. Right breast mammogram 01/25/18 ([facility] review) - IMPRESSION/recommendation: Right breast lesion 1 BI-RADS Category 0: Assessment incomplete. ??0.6 cm mass 10:00 position 11 cmfrom the nipple. Recommend second look ultrasound to determine if this will get up graded to category 4 and require biopsy Mammogram at [facility] 01/30/18 - IMPRESSION: Highly suspicious 0.7 cm [...] cancer cells with immunostaining) Stain intensity: Strong MO immunoreactivity: Positive ( ??>90% cancer cells with [...] and ??<= 200 cells): 0 ?Number of [place] Nodes Examined: ?2 Pathologic Stage Classification (pTNM, [...] process. B. 01/23/17 - Right hemicolectomy Path ([facility] review) - CONSULTATION CASE Outside slide(s) labeled [id number], collection date 01/23/2017. Ascending colon, cecum, terminal [...] Otherwise stable CT scan of the chest 3. DCIS of the left breast, diagnosed in 2006. ??S/p mastectomy. ??No further therapy 4. HTN 5. COPD 6. S/p cholecystectomy 7. S/p hysterectomy 8. S/p bilateral TKA 9. Dexa scan 05/02/18 - Conclusion: Findings consistent with normal bone density. ??Lateral vertebral shows no evidence of a vertebral compression fracture. 10. Genetic testing 08/2018 - Result: [facility] Common Hereditary Cancers Panel showed no mutation was detected. ??This means that Kelly does not carry a mutation in the genes detectable by this test. ??The following genes were evaluated for sequence changes and exonic deletions/duplications: APC, PALLAVI, AXIN2, BARD1, BMPR1A, BRCA1, BRCA2, BRIP1, CDH1, CDK4, CDKN2A (p14ARF), CDKN2A ([id number]), CHEK2, CTNNA1, DICER1, EPCAM (EPCAM: Deletion/duplication testing only (NM_[id number]), GREM1 (GREM1: Promoter region deletion/duplication testing only.), KIT, MEN1, MLH1, MSH2, MSH3, MSH6, MUTYH, NBN, NF1, PALB2, PDGFRA, PMS2, POLD1, POLE, PTEN, RAD50, RAD51C, RAD51D, SDHB, SDHC, SDHD, SMAD4, SMARCA4, STK11, TP53, TSC1, TSC2, VHL. ??The following genes were evaluated for sequence changes only: HOXB13 (c.251G>A, p.Ddo77Cpj variant only), NTHL1 (NTHL1: Deletion/duplication analysis is not offered for this gene (NM_[id number]), and SDHA. ??We are enclosing a printed copy of Kelly's test results. ?? HPI Ms. Strickland is seen in f/u of stage III colon cancer and cancer of the right breast. ??The history is summarized above. She is by herself in clinic today. She says it has been a difficult summer related to a number of issues, including the of brother in law and a number of other things. Physically, she seems to be doing pretty well. Her appetite is good and her weight is stable. She has a persistent cough which has been present for a number of months. It is not worse and does not occur every day. She brings up some sputum which has a yellowish tinge. No fevers or chills. No hemoptysis. She has SOB which isabout the same.Her bowels are regular. No melena or BRBPR. f She has tried to pay attention to what she is eating and she has been on the treadmill daily. Herbowels are perfect. She had an Echo and a stress test since her last visit and this apparently looked good with no particular areas of concern. It sounds as though the increased SOB that she had atthe last visit is felt to attributable primarily to her underlying COPD. She had PFTs repeated and says she was told that she likely will need oxygen at some point. Her bowels are regular. No melena or BRBPR. No myalgias or arthralgias. She has had bilateral mastectomy and has not noticed any areasof concern for local recurrence of disease. She has RLE edema. She says that this has been present for much of the summer. No leg pain. Soc Hx: , lives alone in [place], [place] Tob - Quit 17 years ago Etoh - None Works [employer] Fam Hx: Father - at age 81, [...] no guarding. Genitourinary: Comments: Breast exam - not performed, telephone encounter Musculoskeletal: General: Swelling (RLE edema, Tr - 1+. Mild erythema) present. Skin: General: Skin is warm and dry. Findings: No rash. Neurological: General: No focal deficit present. Mental Status: She is alert and oriented to person, place, and time. Coordination: Coordination normal. Psychiatric: Mood and Affect: Mood normal. Behavior: Behavior normal. Labs: WBC/ANC - Hgb/Hct - Plts - ??BUN/Cr - ?Lytes and LFTs CEA: 06/25/20 Not done 01/24/20 1.3 11/13/19 0.8 [...] the right breast, T1b, N0, int grade, ER/MO strongly positive, Her- 2/odilon negative: Shehad a right breast mammogram (s/p prior left mastectomy for DCIS) done in early 02/08 which showed a0.6 cm mass at 10:00 in the right breast. Biopsy showed invasive ductal carcinoma with lobular features, int grade, ER/MO positive and Her-2/odilon negative. ??On 03/17/18 she [...] was done on 06/25/20, report above. There are lung nodules which for the most part are stable and felt likely to represent intrapulmonary LNs. It is mentioned that there is a new tiny (3 mm)nodule in the superior segment of the LLL (for my reference - series 5/image 171). Given the very small size, it is not possible to define this further at this time. We will plan a CT chest (with contrast) in 3 months for re-evaluation. She has had RLE edema. This has been present for several weeks but she has not had problems with edema before that. A RLE doppler US was done today and is negative for DVT. She will f/u with her PCP next week. documented in this encounter Plan of Treatment Not on file documented as of this encounter Visit Diagnoses Diagnosis Leg edema, right Edema Malignant neoplasm of ascending colon Breast cancer, stage 1, right Nodule of lower lobe of left lung documented in this encounter Care Teams It Coordinator Relationship Specialty Start Date End Date Poly Copeland MD [address] [place] [address] [address] [place] [address] PCP - General 09/15/10 documented as of this encounter
--- OUTSIDE RECORDS SUMMARY | 2024-09-11 10:56 | XMS_ITS | Encounter Summary ---
Author Organization [facility] [address] Care Team Providers Care Group Leader Wafer Polishing Name Role Phone Poly Copeland MD Primary Care Provider [phone] Encounter Details Date Type Department Care Team (Late st Contact Info) Description 06/25/2022 Ancillary Procedure Radiology Library at [facility] [place] [phone] Raffi Del Toro MD [facility] [place] [address] Social History Tobacco Use Types Packs/Day Years [...] STORAGE ONLY CT CHEST ABDOMEN PELVIS Routine 06/25/2022 12:00 AM EDT documented in this encounter Results * Film Library- Storage Only CT Chest Abdomen Pelvis (06/25/2022 12:00 AM EDT) Narrative CITLALLI Hoffman 06/28/2022 1:32 PM EDT This exam is auto-finalizing. It's purpose is for storage only. Raffi Del Toro MD IMG FILM LIBRARY ORD ERABLES KATELYN [address] CT documented in this encounter Visit Diagnoses Not on filedocumented in this encounter Care Teams Group Leader Wafer Polishing Relationship Specialty Start Date End Date Poly Copeland MD [address] [place] [address] [address] [facility] [address] [place] [address] PCP - General 09/15/10 documented as of this encounter
--- OUTSIDE RECORDS SUMMARY | 2024-09-11 10:56 | XMS_ITS | Encounter Summary ---
Author Organization [facility] [place] [address] Care Team Providers Care Machining Supervisor Name Role Phone Poly Copeland MD Primary Care Provider [phone] Encounter Details Date Type Department Care Team (Late st Contact Info) Description 02/08/2019 1:30 PM EDT Office Visit Hematology/Oncology at [address] [phone] Mary Duque, LEACH TANK TENDER [address] [facility] [place] [address] Malignant neoplasm of right breast in female, [...] Sign Reading Time Taken Comments Blood Pressure 167/70 02/08/2019 1:29 PM EDT Pulse 91 02/08/2019 1:29 PM EDT Temperature 36.3 ??C (97.3 ??F) 02/08/2019 1:29 PM ED T Respiratory Rate 16 02/08/2019 1:29 PM EDT Oxygen Saturation 99% 02/08/2019 1:29 PM EDT Inhaled Oxygen Concentration - - Weight 100.7 kg (222 lb) 02/08/2019 1:29 PM EDT Height 162 cm (5' 3.78) 02/08/2019 1:29 PM EDT copied Body Mass Index 38.37 02/08/2019 1:29 PM EDT documented in this encounter Progress Notes * Mary Duque, LEACH TANK TENDER - 02/08/2019 1:30 PM EDT Subjective: Patient ID: Kelly Strickland is a 78 y.o. female. Problem List: 1. Cancer of the right breast, pT1b, N0, Int grade, ER/OR +, Her-2/odilon negative A. Right breast mammogram 01/25/18 ([facility] review) - IMPRESSION/recommendation: Right breast lesion 1 BI-RADS Category 0: Assessment incomplete. ??0.6 cm mass 10:00 position 11 cmfrom the nipple. Recommend second look ultrasound to determine if this will get up graded to category 4 and require biopsy Mammogram at [facility] 01/30/18 - IMPRESSION: Highly [...] cancer cells with immunostaining) Stain intensity: Strong OR immunoreactivity: Positive ( ??>90% cancer cells with [...] and ??<= 200 cells): 0 ?Number of [place] Nodes Examined: ?2 Pathologic Stage Classification (pTNM, [...] process. B. 01/23/17 - Right hemicolectomy Path ([facility] review) - CONSULTATION CASE Outside slide(s) labeled [id number], collection date 01/23/2017. Ascending colon, cecum, terminal [...] BRCA2, BRIP1, CDH1, CDK4, CDKN2A (p14ARF), CDKN2A ([id number]), CHEK2, CTNNA1, DICER1, EPCAM (EPCAM: Deletion/duplication testing only (NM_002354.2), GREM1 (GREM1: Promoter region deletion/duplication testing only.), KIT, MEN1, MLH1, MSH2, MSH3, MSH6, MUTYH, NBN, NF1, PALB2, PDGFRA, PMS2, POLD1, POLE, PTEN, RAD50, RAD51C, RAD51D, SDHB, SDHC, SDHD, SMAD4, SMARCA4, STK11, TP53, TSC1, TSC2, VHL. ??The following genes were evaluated for sequence changes only: HOXB13 (c.251G>A, p.Tvz81Nwg variant only), NTHL1 (NTHL1: Deletion/duplication analysis is [...] theanastrozole better than she did the letrozole. Soc Hx: , lives alone in [place], [place] Tob - Quit 17 years ago Etoh - None Works [employer] Fam Hx: Father - at age 81, heart disease, ischemic bowel Mother - at 71, colon cancer, COPD Sibs - 3 sisters, 2 in good health, 1 with COPD. ??No cancer Children - 3 sons, all in good health Review of Systems Constitutional: Positive for unexpected weight change (gaining on Arimidex). Negative for activity change. HENT: Negative. Respiratory: Negative. Cardiovascular: Negative. Gastrointestinal: Negative. Genitourinary: Negative. Musculoskeletal: Negative. Skin: Negative. Psychiatric/Behavioral: Negative. BP 167/70 (Patient Position: Sitting) Pulse 91 Temp 36.3 ??C (97.3 ??F) (Oral) Resp 16 Ht 162 cm (5' 3.78) Comment: copied Wt 100.7 kg (222 lb) SpO2 99% BMI 38.37 kg/m?? Wt Readings from Last 3 Encounters: 02/08/19 100.7 kg (222 lb) 11/10/18 100.2 kg (221 lb) 08/10/18 99.3 kg (219 lb) Objective: Physical Exam Constitutional: She is [...] time. Skin: Skin is warm and dry. Psychiatric: She has a normal mood and affect. Vitals reviewed. Labs: CBC and CMP are within expected limits CEA: 02/01/19 1.2 11/07/18 0.8 08/07/18 1.3 03/31/18 [...] the right breast, T1b, N0, int grade, ER/OR strongly positive, Her- 2/odilon negative: Shehad a right breast mammogram (s/p prior left mastectomy for DCIS) done in early 02/08 which showed a0.6 cm mass at 10:00 in the right breast. Biopsy showed invasive ductal carcinoma wth lobular features, int grade, ER/OR positive and Her-2/odilon negative. ??On 03/17/18 she [...] metastatic disease. ??Symptoms resolved after stopping this. ?? In 08/10 she began anastrozole for her second breast cancer. She is a bit upset by her weight gain which she attributes to this but understands that if she needs to be on it then she will remain on it. She is asking if she needs to stay on it much longer- she has been on it for one year. I encouraged her to discuss this further with Dr. Del Toro due to the fact that she has had a double mastectomy and had low risk disease. With respect to her colon cancer her tumor marker is relatively stable at 1.2 and she is completelyasymptomatic. She is 18mo out from her treatment. We will plan to see her back in 3-4 months to follow-up with a CBC CMP and CEA. The dexa scan done 05/02/18 showed normal bone density. ??She is taking calcium with vitamin D. ??Wewill repeat the dexa scan in 04/2020. ??She has had bilateral mastectomy and therefore is not havingmammograms. documented in this encounter Plan of Treatment Not on file documented as of this encounter Procedures Procedure Name Priority Date/Time Associated Diagnosis Comments CT SCAN (SCAN) 05/14/2019 12:00 AM EDT LAB SCAN 02/01/2019 12:00 AM EDT documented in this encounter Results * SCAN DOC: CT SCAN (05/14/2019 12:00 AM EDT) Anatomical Region Laterality Modality Other Narrative 05/14/2019 12:00 AM EDT Ordered by an unspecified provider. Scanning Provider MEDIA MGR SCAN EXT O RDR/RSLT * SCAN DOC: LAB (02/01/2019 12:00 AM EDT) Narrative 02/01/2019 12:00 AM EDT Ordered by an unspecified provider. Scanning Provider MEDIA MGR SCAN EXT O RDR/RSLT documented in this encounter Visit Diagnoses Diagnosis Malignant neoplasm of right breast in female, estrogen receptor positive, unspecified site of breast Malignant neoplasm of ascending colon documented in this encounter Care Teams Machining Supervisor Relationship Specialty Start Date End Date Poly Copeland MD [address] [facility] [address] [place] [address] PCP - General 09/15/10 documented as of this encounter
--- OUTSIDE RECORDS SUMMARY | 2024-09-11 10:56 | XMS_ITS | Encounter Summary ---
Author Organization [facility] [place] [address] Care Team Providers Care Valet Runner Name Role Phone Poly Copeland MD Primary Care Provider [phone] Reason for Visit * Reason Comments Follow-up Encounter Details Date Type Department Care Team (Late st Contact Info) Description 04/05/2018 3:30 PM EDT Office [place] [address] Samantha Mayen MD [facility] [place] [address] Malignant neoplasm of upper-outer quadrant of right breast in female, estrogen receptor positive Social History Tobacco [...] Sign Reading Time Taken Comments Blood Pressure - - Pulse - - Temperature - - Respiratory Rate - - Oxygen Saturation - - Inhaled Oxygen Concentration - - Weight 99.3 kg (219 lb) 04/05/2018 3:05 PM EDT Height - - Body Mass Index 38.79 03/17/2018 10:19 AM EDT documented in this encounter Progress Notes * Samantha Mayen MD - 04/05/2018 3:30 PM EDT KEDAR Yoo is a 77 yo female who returns in surgical follow up of newly diagnosed right breast cancer andhas a history of mastectomy for DCIS on the left. . Of note, Naila has recently completed surgery/chemotherapy for an obstructing colon cancer. She had a difficult surgical recovery but did well with chemotherapy and is currently feeling well. ?? Screening mammogram in January, revealed a 5mm asymmetry at 10:00 in the right breast. Call backs and u/s confirmed a solid mass. Biopsy revealed IDC which is strongly ER/MI+ and her2-. No other lesions were noted in either breast. Naila opted for mastectomy and sentinel node excision: Procedure: Total mastectomy Specimen Laterality: Right Tumor Histologic Type: Invasive ductal carcinoma Histologic Grade ([place] Histologic Score) Glandular (Acinar) / Tubular Differentiation: [...] and <= 200 cells): 0 Number of [place] Nodes Examined: 2 Pathologic Stage Classification (pTNM, AJCC 8th Edition) Primary Tumor (Invasive Carcinoma) (pT): pT1b Regional Lymph Nodes (pN) Modifier: (sn): Only sentinel node(s) evaluated. Category (pN): pN0 Tumor Block(s): A3 2016 AJCC 8th Edition CAP Annual Release ER, MI, and HER2 studies (performed on prior biopsy, [id number]): ER: Positive (>90%, strong) MI: Positive (>90%, strong) HER2 FISH: Negative ??Naila is doing very well. She has no complaints. SH: Has 3 sons, 5 grandchildren and 2 great-grandchildren. History of tobacco- quit 16 years ago. Rare hernandez jossie. 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 ?? PMH HTN Colon cancer DCIS RAD ?? FH: Mother with likely colon ca ( secondary to GI malignancy) Maternal grandmother with breast cancer ? Objective: Physical Exam Constitutional: She is oriented to person, place, and time. She appears well-nourished. HENT: Head: Atraumatic. Right chest wall with well healed mastectomy incision. No drainage or erythema. rom of the arm is normal. Left chest wall with redundant fat laterally which makes wearing bra difficult. ?? Assessment and Plan: 77 yo female with history of left DCIS and recent colon cancer now with stage I IDC of the right breast. No evidence of surgical complications. Plan follow up with Dr. Del Toro next week to discuss endocrine therapy. Naila has declined PT as she has full ROm of the arm. She would like to revise the left mastectomy scar and will call me to schedule after her next colonoscopy in April. Plan f/u in 1 year. Plan genetic counseling in [facility] given b/l breast cancer and colon cancer. documented in this encounter Plan of Treatment Not on file documented as of this encounter Visit Diagnoses Diagnosis Malignant neoplasm of upper-outer quadrant of right breast in female, estrogen receptor positive documented in this encounter Care Teams Valet Runner Relationship Specialty Start Date End Date Poly Copeland MD [address] [facility] [address] [place] [address] PCP - General 09/15/10 documented as of this encounter
--- OUTSIDE RECORDS SUMMARY | 2024-09-11 10:56 | XMS_ITS | Encounter Summary ---
Author Organization [facility] [place] [address] Care Team Providers Care Carpet Mechanic Name Role Phone Poly Copeland MD Primary Care Provider [phone] Encounter Details Date Type Department Care Team (Late st Contact Info) Description 06/25/2020 10:00 PM EDT Ancillary Procedure Radiology Library at [facility], [place] [place] [id number] Raffi Del Toro MD [place] [address] Social History Tobacco Use Types Packs/Day Years [...] STORAGE ONLY CT CHEST ABDOMEN PELVIS Routine 06/25/2020 9:59 PM EDT documented in this encounter Results * Film Library- Storage Only CT Chest Abdomen Pelvis (06/25/2020 9:59 PM EDT) Narrative KATELYN - 06/25/2020 9:59 PM EDT This exam is auto-finalizing. It's purpose is for storage only. Raffi Del Toro MD IMG FILM LIBRARY ORD ERABLES [facility] [place], [place] documented in this encounter Visit Diagnoses Not on filedocumented in this encounter Care Teams Carpet Mechanic Relationship Specialty Start Date End Date Poly Copeland MD [address] [place], [place] [address]Y [facility] 1 [place] [address] PCP - General 09/15/10 documented as of this encounter
--- OUTSIDE RECORDS SUMMARY | 2024-09-11 10:56 | XMS_ITS | Encounter Summary ---
Author Organization [facility] [place] [address] Care Team Providers Care Manager Money Name Role Phone Poly Copeland MD Primary Care Provider Encounter Details Date Type Department Care Team (Late st Contact Info) Description 05/02/2020 Orders Only Hematology/Oncology at [address] [phone] Raffi Del Toro MD [facility] [place] [address] Malignant neoplasm of right breast in female, estrogen receptor positive, unspecified site of breast Social History Tobacco [...] estrogen receptor positive, unspecified site of breast documented in this encounter Care Teams Manager Money Relationship Specialty Start Date End Date Poly Copeland MD [address] [place], [place] [id number] PCP - General 09/15/10 documented as of this encounter
--- OUTSIDE RECORDS SUMMARY | 2024-09-11 10:56 | XMS_ITS | Encounter Summary ---
Author Organization [facility] [place] [address] Care Team Providers Care Acid Etch Operator Name Role Phone Poly Copeland MD Primary Care Provider [phone] Encounter Details Date Type Department Care Team (Latest Contact Info) Description 11/10/2018 12:00 PM EST Clinical Support Hematology/Oncology at [address] [phone] [facility] [place] [address] Ductal carcinoma in situ (DCIS) of left breast Social History Tobacco Use Types Packs/Day Years Used Date Smoking Tobacco: Former Smokeless Tobacco: Never Comments:quite 17 years ago Sex and Gender Information Value Date Recorded Sex Assigned at Not on file Gender Identity Female 10/25/2020 5:11 AM EST Sexual Orientation Not on file documented as of this encounter Progress Notes * Lorraine Tan RD - 11/10/2018 12:00 PM EST [facility] Dietitian Follow Up Assessment Seen By: Deisi Tan MS, RD, DUSTER TENDER, LD Referred by: Mary Duque APRN Reason for visit: Patient and diagnosis: Colon cancer, stage IV. Assessment: HPI: Patient Active Problem List Diagnosis Code ??? Breast cancer in situ D05.90 ??? Malignant neoplasm of ascending colon C18.2 ??? Headache, chronic daily R51 ??? Malignant neoplasm of right breast in female, estrogen receptor positive C50.911, Z17.0 Meds: reviewed Labs: reviewed Ht: 162 cm Wt: 06/10/17: stable Wt Readings from Last 3 Encounters: 08/10/18 99.3 kg (219 lb) 06/16/18 98.7 kg (217 lb 9.6 oz) 05/05/18 98.9 kg (218 lb) Wt Hx: UBW: 215 lbs in February 2017. Fluctuates between 200-215lbs % UBW: IBW: 52.7 kg +/- 10% % IBW: BMI: 36.4 ___ Edema ___ Ascites ___Muscle wasting Calorie needs: 1000 - 1300 Protein needs: 80 Fluid needs: 1.5 L Food Intake: Banana QD, OJ and miralax. Does admit to a sweet tooth. Am: Banana, OJ and Miralax, coffee Noon: Tries to make this her bigger meal of the day. Didn't eat yet today or yesterday Pm: hotdog, pot salad, coleslaw, mac salad, beans, and strawberry shortcake Snacks: not typically, if she does, pop corn Fluids: 1 cup coffee/d, water during the day (at least 4, 16 oz glasses/d) Supplements/Frequency: ___ Ensure/Plus ___ Boost/Plus ___ CIB ___ Other: Teas, vitamins, or other nutritional supplements: B12, D3, Tums for Ca, MVI, Food allergies or avoidances: knfa Appetite: 10/10 scale Nausea: denies Vomiting: denies Chewing: denies Dentition: Swallowing: uncomfortable with swallowing, if she speaks a lot, her voice will go hoarse. Taste Changes: some hypogeusia, tongue feldman. Uses biotene mouthwash, BID and baking soda and waterduring the day. Bowels: miralaxm, prn: does not early satiety Other: quit smoking 17 years ago Food availability/purchasing, meal planning and preparation: She does Depression: Social Support: Economic Issues: Physical Activity: Has a treadmill in living room and does 10-20 min/d. Depends on weather and COPD. Level of Motivation/Readiness to Change: Nutrition Diagnosis: We discussed the concept of food as medicine and the importance of eating small, frequent, calorically dense, protein-rich meals and snacks throughout the day. Recommended soft, moist, bland foods when mouth sores are present. Recommended sugar-free lozenges or candies to help with xerostomia. Reviewed foods rich in Potassium. Also discussed the benefits of light physical activity, 20-30 minutes,most days of the week to help with fatigue, stimulate appetite, and preserve muscle mass during treatment. 05/13/17: Met briefly with Lesli while in clinic today for followup. She offers no complaints. Tastes and burning sensation have improved with biotene and baking soda/salt rinses. She is scheduled for the next cycle of chemo on 05/16 with a reduced dose oxaliplatin again and reduction of the 5FU dose by 25% to see if this helps w/ JACOBO and jaw pain. Per Dr. Del Toro She is going to start the amytriptyline and naproxen as prescribed by Dr. Ambrose to see if this relieves her JACOBO. 05/26/17: Weight stable. Unable to see her at encounter. Offers no complaints nutritionally to nursing staff or Mary Duque APRN. 06/10/17: Weight is stable. 11/10/18: Weight is stable. Met briefly with Kelly as she was leaving clinic. She denies any issues with intake. She is currently not at nutritional risk. Nutrition Intervention: ? Increase caloric needs: reviewed ? Modify diet consistency: ? Increase frequency of meals and snacks: Q 2-3 hrs ? Need for supplements: BID or TID Nutrition Goals: weight stability and LBM preservation Educational Handouts provided: -- Soft, moist protein foods -- Increasing Fluid intake -- Sore Mouth -- Foods high in K Other Recommendations: ? Monitoring and Evaluation: Will follow up with jac. I have provided her with my card and contact information should she have any questions in the mean time. Thank you for this consult. documented in this encounter Plan of Treatment Not on file documented as of this encounter Visit Diagnoses Diagnosis Ductal carcinoma in situ (DCIS) of left breast documented in this encounter Care Teams Acid Etch Operator Relationship Specialty Start Date End Date Poly Copeland MD [address] [place] [address] 1 [place] [address] PCP - General 09/15/10 documented as of this encounter
--- OUTSIDE RECORDS SUMMARY | 2024-09-11 10:56 | XMS_ITS | Encounter Summary ---
Author Organization [facility] [place] [address] Care Team Providers Care Clinical Informatics Specialist Name Role Phone Poly Copeland MD Primary Care Provider [phone] Encounter Details Date Type Department Care Team (Late st Contact Info) Description 11/23/2021 10:30 AM EST Office Visit Hematology/Oncology at [address] [phone] Isis Ortiz WEAVING PROFESSOR [address] [place] [address] DR HEMATOLOGY ONCOLOGY [place], [place] [id number] Breast cancer, stage 1, right; Malignant neoplasm [...] Sign Reading Time Taken Comments Blood Pressure 173/76 11/23/2021 10:24 AM EST Pulse 79 11/23/2021 10:24 AM EST Temperature 36.1 ??C (96.9 ??F) 11/23/2021 10:[address] Respiratory Rate 20 11/23/2021 10:24 AM EST Oxygen Saturation 97% 11/23/2021 10:24 AM EST Inhaled Oxygen Concentration - - Weight 96.6 kg (213 lb) 11/23/2021 10:24 AM EST Height 161.5 cm (5' 3.58) 11/23/2021 10:[address] Body Mass Index 37.04 11/23/2021 10:24 AM EST documented in this encounter Progress Notes * Isis Ortiz, WEAVING PROFESSOR - 11/23/2021 10:30 AM EST Subjective Patient ID: Kelly Strickland is a 81 y.o. female. Patient Active Problem List Diagnosis Code ??? Breast cancer in situ D05.90 ??? Malignant neoplasm of ascending colon C18.2 ??? Headache, chronic daily R51.9 ??? Malignant neoplasm of right breast in female, estrogen receptor positive C50.911, Z17.0 HPI Kelly Strickland is 81 yo, seen in f/u of colon cancer [...] due to cumulative toxicity, including neuropathy. ? She had a colonoscopy on 05/12/18 [...] the right breast, T1b, N0, int grade, ER/IL strongly positive, Her- 2/odilon negative: Right breast mammogram (s/p prior left mastectomy for DCIS) done in early 02/08 - 0.6 cm mass at 10:00 in the right breast. Bx - invasive ductal carcinoma with lobular features, int grade, ER/IL positive, Her-2/odilon negative. ?? 03/17/18 - simple [...] above. ??This is followed by Dr. Copeland. ?? A CT c/a/p was done on 05/11/21, report above. There is no evidence of metastatic disease. The previously seen lung nodules are stable. ?? No further intervention is planned at this time. I will plan to see her in 6 months with labs and plan to repeat the CT in a year. A referral will be made to Dr. Alves for colonoscopy. ??1:32 PM Office Visit on 05/15/2021 INTERVAL HPI 11/23/21 Ashley Strickland is a 81 yo female diagnosed with ascending colon cancer in 02/07 and cancer of the right breast in 2018, IDC, -LNs, ER/IL+, Her-2 odilon neg. . 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 Kelly returns to the [facility]- oncology clinic in [facility] today for routine follow-upof colon cancer and breast cancer. Ashley is feeling well today. 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 She hasa good appetite, and has intentionally been trying to lose a few pounds. She has recently lost 10 pounds. She has good energy and feels young at heart, telling me 80 is just a number and it doesn't pertain to her. She has a treadmill in her home and tries to use it daily. Her activity is somewhat limited by her COPD, but she does the best she can. She had previously not tolerated both anastrozole and letrozole and opted not to take Tamoxifen dueto thromboembolic risks. She has not noticed any lumps or bumps in her axillary areas or chest wall. She has not had swelling or pain in shoulder, axillary areas or either arm. She denies abdominal pain or cramping. She has regular bowel movements every morning. She has not noticed any blood in stool. She has noticed a small amount of rectal bleeding maybe once every 2 months which she attributes to hemhoiroids. She has had all COVID vaccinations and flu shot. She reports chronic edema in her ankles and LEs bilaterally. She denies peripheral neuropathy. She denies fevers, chills, night sweats or any recent new illnesses. Allergies Allergen Reactions ??? Sulfa (Sulfonamide Antibiotics) CIS - mouth swells Current Medications ??? Toviaz 8 mg Tablet Sustained Release 24 hr ??? albuteroL 90 mcg/actuation HFA Aerosol Inhaler ??? fluticasone/umeclidin/vilanter (TRELEGY ELLIPTA INHL) ??? calcium-vitamin D3 600 mg(1,500mg) -200 unit Tablet ??? potassium chloride (K-DUR/KLOR-CON) 20 mEq Tab Sust.Rel. Particle/Crystal ??? aspirin 81 mg Tablet, Delayed Release (E.C.) ??? acetaminophen (TYLENOL) 500 mg Tablet ??? multivitamin (THERAGRAN) Tablet ??? omeprazole (PRILOSEC) 20 mg Capsule, Delayed Release(E.C.) ??? hydroCHLOROthiazide (HYDRODIURIL) 25 mg Tablet ??? Cholecalciferol, Vitamin D3, (VITAMIN D) 1,000 unit Cap Social History Tobacco Use ??? Smoking status: Former Smoker ??? Smokeless tobacco: Never Used ??? Tobacco comment: quite 17 years ago Substance Use Topics ??? Alcohol use: Not on file ??? Drug use: Not on file Review of Systems Constitutional: Negative. Negative for fatigue and fever. HENT: Negative. Respiratory: Positive for shortness of breath. Cardiovascular: Negative for chest pain. Gastrointestinal: Positive for anal bleeding. Genitourinary: Negative. Musculoskeletal: Negative. Skin: Negative. Neurological: Negative. Hematological: Negative. Psychiatric/Behavioral: Negative. Objective Physical Exam Vitals reviewed. Constitutional: Appearance: Normal appearance. She is not ill-appearing. Eyes: Extraocular Movements: Extraocular movements intact. Cardiovascular: Rate and Rhythm: Normal rate and regular rhythm. Pulmonary: Breath sounds: No wheezing or rales. Chest: Breasts: Right: No axillary adenopathy or supraclavicular adenopathy. Left: No axillary adenopathy or supraclavicular adenopathy. Abdominal: General: Bowel sounds are normal. There is no distension. Palpations: Abdomen is soft. Tenderness: There is no abdominal tenderness. Musculoskeletal: Right lower leg: Edema present. Left lower leg: Edema present. Comments: +2 edema lower LEs and ankles bilaterally Lymphadenopathy: Cervical: No cervical adenopathy. Upper Body: Right upper body: No supraclavicular or axillary adenopathy. Left upper body: No supraclavicular or axillary adenopathy. Skin: General: Skin is warm and dry. Neurological: Mental Status: She is alert and oriented to person, place, and time. Coordination: Coordination normal. Psychiatric: Mood and Affect: Mood normal. Thought Content: Thought content normal. Judgment: Judgment normal. Chest wall exam - No new masses noted on chest wall, along mastectomy scars, or in axillary areas. BP 173/76 (Patient Position: Sitting) Pulse 79 Temp 36.1 ??C (96.9 ??F) (Temporal) Resp 20 Ht 161.5 cm (5' 3.58) Wt 96.6 kg (213 lb) SpO2 97% BMI 37.04 kg/m?? LABS 11/06/21 WBC 7.33; ANC 5.78; H/H 13.4/43.9; PLT 207; BUN 19; CREAT 1.3; LFTs normal. CEA 11/06/21 - 1.1 IMAGING 05/11/21 - CT C/A/P - DANIEL, chest abdomen or pelvis. Assessment & Plan Ashley Strickland is a 81 yo female diagnosed with ascending colon cancer in 02/07 and cancer of the right breast in 2018, IDC, -LNs, ER/IL+, Her-2 odilon neg. . 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 Kelly returns to the [facility]- oncology clinic in [facility] today for routine follow-upof colon cancer and breast cancer. Ashley is doing very well without signs of clinical recurrence of breast or colon cancers. CBC, CMP and CEA reviewed with Ashley today. Continue good attention to losing weight, daily exercise, and good daily oral hydration. RTC in 6 months for clinic visit, labs, and last anticipated surveillance CT . documented in this encounter Plan of Treatment Not on file documented as of this encounter Visit Diagnoses Diagnosis Breast cancer, stage 1, right Malignant neoplasm of ascending colon documented in this encounter Care Teams Clinical Informatics Specialist Relationship Specialty Start Date End Date Poly Copeland MD [address] [place] [address] PCP - General 09/15/10 documented as of this encounter
--- OUTSIDE RECORDS SUMMARY | 2024-09-11 10:56 | XMS_ITS | Encounter Summary ---
Author Organization [facility] Address [facility] [place] [address] Care Team Providers Care Crm Campaign Manager Name Role Phone Poly Copeland MD Primary Care Provider [phone] Encounter Details Date Type Department Care Team (Latest Contact Info) Description 03/31/2018 - 03/31/2018 11:59 PM EDT Hospital Encounter Radiology Library at [facility] [place] [phone] Raffi Del Toro MD [facility] [place] [address] Discharge Disposition: Home Social History Tobacco Use [...] STORAGE ONLY CT CHEST ABDOMEN PELVIS Routine 03/31/2018 12:00 AM EDT documented in this encounter Results * Film Library- Storage Only CT Chest Abdomen Pelvis (03/31/2018 12:00 AM EDT) Narrative [facility] - 04/11/2018 12:18 PM EDT This exam is for storage only and is auto-finalizing. Raffi Del Toro MD IMG FILM LIBRARY ORD ERABLES [place], [place] documented in this encounter Visit Diagnoses Not on filedocumented in this encounter Care Teams Crm Campaign Manager Relationship Specialty Start Date End Date Poly Copeland MD [address] [place] [address] [address] [place] [address] PCP - General 09/15/10 documented as of this encounter
--- OUTSIDE RECORDS SUMMARY | 2024-09-11 10:56 | XMS_ITS | Encounter Summary ---
Author Organization [facility] Address [facility] [place] [address] Care Team Providers Care Wall Covering Installer Name Role Phone Poly Copeland MD Primary Care Provider [phone] Encounter Details Date Type Department Care Team (Late st Contact Info) Description 05/05/2018 10:30 AM EDT Office Visit Hematology/Oncology at [address] [phone] Raffi Del Toro MD [facility] [place] [address] Malignant neoplasm of right breast in female, [...] Sign Reading Time Taken Comments Blood Pressure 138/62 05/05/2018 10:35 AM EDT Pulse 72 05/05/2018 10:35 AM EDT Temperature 36.7 ??C (98.1 ??F) 05/05/2018 10:35 AM E DT Respiratory Rate 16 05/05/2018 10:35 AM EDT Oxygen Saturation 97% 05/05/2018 10:35 AM EDT Inhaled Oxygen Concentration - - Weight 98.9 kg (218 lb) 05/05/2018 10:35 AM EDT Height 162 cm (5' 3.78) 05/05/2018 10:35 AM EDT copied Body Mass Index 37.68 05/05/2018 10:35 AM EDT documented in this encounter Progress Notes * Raffi Del Troo MD - 05/05/2018 10:30 AM EDT Subjective: Patient ID: Kelly Strickland is a 78 y.o. female. Problem List: 1. Cancer of the right breast, pT1b, N0, Int grade, ER/IA +, Her-2/odilon negative A. Right breast mammogram [place]/25/18 [place] [place] - IMPRESSION/recommendation: Right breast lesion 1 BI-RADS Category 0: Assessment incomplete. 0.6 cm mass 10:00 position 11 cm from the nipple. Recommend second look ultrasound to determine if this will get up graded to category4 and require biopsy Mammogram [place] [facility] [place] - IMPRESSION: Highly suspicious 0.7 cm [...] cancer cells with immunostaining) Stain intensity: Strong IA immunoreactivity: Positive ( ??>90% cancer cells with [...] Type: ?? Invasive ductal carcinoma ?Histologic Grade (Malcolm Histologic Score) ? Glandular (Acinar) / Tubular [...] and ??<= 200 cells): 0 ?Number of [place] Nodes Examined: ?2 Pathologic Stage Classification (pTNM, [...] process. B. 01/23/17 - Right hemicolectomy Path ([facility] [place]) - CONSULTATION CASE Outside slide(s) labeled [id number], collection date 01/23/2017. Ascending colon, cecum, terminal [...] f/u of stage III colon cancer and for discussion of adjuvant therapy for cancer of the right breast. The history is summarized above. On presentation today, she is by herself. She is doing well overall. The symptoms of neuropathy that she had following chemotherapy have resolved. She is eating well and her weight has increased overthe past few months. Her bowels are regular with no melena or BRBPR. She has healed well from the mastectomy. She had a drain in for two weeks after that and is glad to have it out. No swelling in the area of the surgery. She has some arthralgias and no other areas of pain. No fevers. Her energy level is good and she is enjoying the summer. Soc Hx: , lives alone in [place], [place] Tob - Quit 17 years ago Etoh - None Works [employer] Fam Hx: Father - at age 81, [...] headaches (largely gone). Hematological: Negative. Psychiatric/Behavioral: Negative. Objective: Physical Exam [...] is no guarding. Genitourinary: Genitourinary Comments: Breast exam: S/p bilateral mastectomy. On right the incision appears to be healing well without evidence of infections. No evidence of disease recurrence on either side. Musculoskeletal: She exhibits no edema. Lymphadenopathy: She has no cervical adenopathy. She has no axillary adenopathy. Right: No supraclavicular adenopathy present. Left: No supraclavicular adenopathy present. Neurological: She is alert and oriented to person, place, and time. Coordination normal. Skin: Skin is warm and dry. No rash noted. Psychiatric: She has a normal mood and affect. Her behavior is normal. Vitals reviewed. Labs(03/31/18): WBC/ANC - 7., Hgb/Hct - 12.6/40, Plts - 232,000. BUN/Cr - 21/1.06. Alb - 3.1 Lytes and LFTs o/w unremarkable. Lipid panel 05/02/18 - Total chol - 211, LDL - 135, HDL - 41, Triglycerides - 193 CEA: 03/31/18 1.5 12/30/17 0.9 09/08/17 0.8 [...] to repeatthe CT scan Around September. She has a colonoscopy scheduled on 05/[address] Caruso (F/u plan - CT scans will be done every 6 months for the first two years, then annually out to 5 years, unless needed sooner based on clinical assessment). B. Cancer of the right breast, T1b, N0, int grade, ER/IA strongly positive, Her- 2/odilon negative: Shehas a right breast mammogram (s/p prior left mastectomy for DCIS) done in early 02/08 which showed a0.6 cm mass at 10:00 in the right breast. Biopsy showed invasive ductal carcinoma wth lobular features, int grade, ER/IA positive and Her-2/odilon negative. On 03/17/18 she underwent a simple mastectomy w ith SLN excision.. The pathology showed a 0.6 cm invasive invasive ductal carcinoma, grade 2. The LNs were negative and margins of resection were negative. We talked about adjuvant systemic therapy. I would recommend adjuvant hormonal therapy. Based on clinical features, the risk of recurrence is low and as a result the expected benefit of chemotherapy would be very low and I would not recommend that, again based on clinical features of the cancer. Wediscussed that NCCN guidelines recommend consideration of performing a 21 gene assay such as Oncotype Dx for tumor greater than 5 mm in size. If the score on this assay fell within a high risk range,systemic chemotherapy could be considered. We talked about this and decided to send this although Ithink it is very unlikely that we will be recommending chemotherapy. I gave her a prescription for femara, 2.5 mg per day and will see her in a month or so to see how she is doing with this and we will review the result of the Oncotype Dx testing at that time as well. We reviewed potential side effects of femara including hot flashes, myalgias/arthralgias, headache, dizziness, depression, elevated lipid levels, thinning of the bones and others. She was given an informational handout regarding femara. The dexa scan done 05/02/18 shows normal bone density. She will continue to take calcium with vitamin D. The lipid panel is noted above. I will defer management of this to her PCP whom she will be seeing in June. In 09/10 she is scheduled to meet with our Genetics Counselor documented in this encounter Plan of Treatment Not on file documented as of this encounter Procedures Procedure Name Priority Date/Time Associated Diagnosis Comments SCAN DOC: COLONOSCOPY 05/12/2018 12:00 AM EDT DIAGNOSTIC RADIOLOGY SCAN 05/02/2018 12:00 AM EDT documented in this encounter Results * SCAN DOC: COLONOSCOPY (05/12/2018 12:00 AM EDT) Narrative 05/12/2018 12:00 AM EDT Ordered by an unspecified provider. Scanning Provider MEDIA MGR SCAN EXT O RDR/RSLT * SCAN DOC: DIAGNOSTIC RADIOLOGY (05/02/2018 12:00 AM EDT) Anatomical Region Laterality Modality Other Narrative 05/02/2018 12:00 AM EDT Ordered by an unspecified provider. Scanning Provider MEDIA MGR SCAN EXT O RDR/RSLT documented in this encounter Visit Diagnoses Diagnosis Malignant neoplasm of right breast in female, estrogen receptor positive, unspecified site of breast Malignant neoplasm of ascending colon documented in this encounter Care Teams Wall Covering Installer Relationship Specialty Start Date End Date Poly Copeland MD [address] [place] [address] PCP - General 09/15/10 documented as of this encounter
--- OUTSIDE RECORDS SUMMARY | 2024-09-11 10:56 | XMS_ITS | Encounter Summary ---
Author Organization [facility] Address [facility] [place] [address] Care Team Providers Care Senior Engineering Technician Name Role Phone Poly Copeland MD Primary Care Provider [phone] Reason for Referral * Consultation (Routine) - Specialty Diagnoses / Procedures Referred By Contgail t Referred To Contact Diagnoses Malignant neoplasm of ascending colon Raffi Del Toro MD [facility] [place] [address] Morro Alves MD [address] [place] [address] Referral ID Status Reason Start Date Expiration Date V isits Requested Visits Authorized [id number] Consult, Test & Treat 05/15/2021 11/11/2021 1 1 Encounter Details Date Type Department Care Team (Late st Contact Info) Description 05/15/2021 1:00 PM EDT Office Visit Hematology/Oncology at [address] [phone] Raffi Del Toro MD [facility] [place] [address] Isis Ortiz APRN [address] [place] [address] DR HEMATOLOGY ONCOLOGY [place], [place] [id number] Malignant neoplasm of ascending colon; Breast cancer, [...] Sign Reading Time Taken Comments Blood Pressure 136/86 05/15/2021 1:07 PM EDT Pulse 78 05/15/2021 1:07 PM EDT Temperature 36.2 ??C (97.1 ??F) 05/15/2021 1:07 PM ED T Respiratory Rate 18 05/15/2021 1:07 PM EDT Oxygen Saturation 100% 05/15/2021 1:07 PM EDT Inhaled Oxygen Concentration - - Weight 100 kg (220 lb 6.4 oz) 05/15/2021 1:07 PM EDT Height 157.5 cm (5' 2) 05/15/2021 1:07 PM EDT Body Mass Index 40.31 05/15/2021 1:07 PM EDT documented in this encounter Progress Notes * Raffi Del Toro MD - 05/15/2021 1:00 PM EDT Subjective: Patient ID: Kelly Strickland is 81 y.o. Problem List: 1. Cancer of the right breast, pT1b, N0, Int grade, ER/SC +, Her-2/odilon negative A. Right breast mammogram 01/25/18 ([facility] [place] review) - IMPRESSION/recommendation: Right breast lesion 1 BI-RADS Category 0: Assessment incomplete. ??0.6 cm mass 10:00 position 11 cmfrom the nipple. Recommend second look ultrasound to determine if this will get up graded to category 4 and require biopsy Mammogram at [facility] [place] 01/30/18 - IMPRESSION: [...] cancer cells with immunostaining) Stain intensity: Strong SC immunoreactivity: Positive ( ??>90% cancer cells with [...] Type: ?? Invasive ductal carcinoma ?Histologic Grade (Basye Histologic Score) ? Glandular (Acinar) / Tubular [...] and ??<= 200 cells): 0 ?Number of [place] Nodes Examined: ?2 Pathologic Stage Classification (pTNM, [...] process. B. 01/23/17 - Right hemicolectomy Path ([facility] [place] review) - CONSULTATION CASE Outside slide(s) labeled [id number], collection date 01/23/2017. Ascending colon, cecum, terminal [...] NRAS: ??NEGATIVE C. Post-op course complicated by boinfacio-hepatic abscess, requiring drain placement D. CT chest [...] intrathoracic adenopathy 4. No significant osseous lesions 3. DCIS of the left breast, diagnosed in 2006. ??S/p mastectomy. ??No further therapy 4. HTN 5. COPD 6. S/p cholecystectomy 7. S/p hysterectomy 8. S/p bilateral TKA 9. Dexa scan 05/02/18 - Conclusion: Findings consistent with normal bone density. ??Lateral vertebral shows no evidence of a vertebral compression fracture. 10. Genetic testing 08/2018 - Result: [employer] Common Hereditary Cancers Panel showed no mutation was detected. ??This means that Kelly does not carry a mutation in the genes detectable by this test. ??The following genes were evaluated for sequence changes and exonic deletions/duplications: APC, PALLAVI, AXIN2, BARD1, BMPR1A, BRCA1, BRCA2, BRIP1, CDH1, CDK4, CDKN2A (p14ARF), CDKN2A (q34UYH5t), CHEK2, CTNNA1, DICER1, EPCAM (EPCAM: Deletion/duplication testing only ([id number]), GREM1 (GREM1: Promoter region deletion/duplication testing only.), KIT, MEN1, MLH1, MSH2, MSH3, MSH6, MUTYH, NBN, NF1, PALB2, PDGFRA, PMS2, POLD1, POLE, PTEN, RAD50, RAD51C, RAD51D, SDHB, SDHC, SDHD, SMAD4, SMARCA4, STK11, TP53, TSC1, TSC2, VHL. ??The following genes were evaluated for sequence changes only: HOXB13 (c.251G>A, p.Eli28Bhq variant only), NTHL1 (NTHL1: Deletion/duplication analysis is not offered for this gene ([id number]), and SDHA. ??We are enclosing a printed copy of Kelly's test results. ?? HPI Ms. Strickland is seen in f/u of stage III colon cancer and cancer of the right breast. ??The history is summarized above. She is by herself in clinic today. She is feeling pretty pretty well. She has some ongoing problemswith COPD. She is now on Trelegy but that has not helped. Her breathing is worse on hot humid days.Her appetite is good and her weight is stable. Her bowels are regular. No melena or [...] noticed any areas of concern for local recurrenceof disease. She has LE edema which is about the same. She has been very busy knitting. Soc Hx: , lives alone in [place], [place] Tob - Quit 17 years ago Etoh - None Works [employer] Fam Hx: Father - at age 81, [...] normal. Behavior: Behavior normal. Labs: WBC/ANC - 7., Hgb/Hct - 13.4/43.3, Plts - 219,000. ??BUN/Cr - 23/1.11.?Lytes and LFTs unremarkable Vit D - 47.5 on 03/27/21 CEA: 05/11/21 <2.0 10/27/20 1.0 06/25/20 Not done 01/24/20 1.3 11/13/19 0.8 05/14/19 1.0 02/01/19 1.2 11/07/18 0.8 08/07/18 1.3 03/31/18 1.5 12/30/17 0.9 09/08/17 0.8 05/27/17 <0.5 04/28/17 1.0 03/18/[address] personally reviewed, report above Assessment and Plan: Kelly Strickland is 81 yo, seen in [...] the right breast, T1b, N0, int grade, ER/SC strongly positive, Her- 2/odilon negative: Right breast mammogram (s/p prior left mastectomy for DCIS) done in early 02/08 - 0.6 cm mass at 10:00 in the right breast. Bx - invasive ductal carcinoma with lobular features, int grade, ER/SC positive, Her-2/odilon negative. ?? 03/17/18 - simple [...] Copeland. A CT c/a/p was done on 05/11/21, report above. There is no evidence of metastatic disease. The previously seen lung nodules are stable. No further intervention is planned at this time. I will plan to see her in 6 months with labs and plan to repeat the CT in a year. A referral will be made to Dr. Alves for colonoscopy. documented in this encounter Plan of Treatment Scheduled Referrals Name Type Priority Associated Diagnoses Orde r Schedule Referral to General Surgery Outpatient Referral Routine Malignant neoplasm of ascending colon Ordered: 05/15/2021 documented as of this encounter Visit Diagnoses Diagnosis Malignant neoplasm of ascending colon Breast cancer, stage 1, right documented in this encounter Care Teams Senior Engineering Technician Relationship Specialty Start Date End Date Poly Copeland MD [address] [place] [address] PCP - General 09/15/10 documented as of this encounter
--- OUTSIDE RECORDS SUMMARY | 2024-09-11 10:56 | XMS_ITS | Encounter Summary ---
Author Organization [facility] [place] [address] Care Team Providers Care Weigh Box Tender Name Role Phone Poly Copeland MD Primary Care Provider [phone] Encounter Details Date Type Department Care Team (Late st Contact Info) Description 09/06/2018 Notes Only [place]ematology [place] [address] Mariano Manuel MD [facility] DR HEMATOLOGY/[place] [address] Social History Tobacco Use Types Packs/Day Years Used Date Smoking Tobacco: Former Smokeless Tobacco: Never Comments:quite 17 years ago Sex and Gender Information Value Date Recorded Sex Assigned at Not on file Gender Identity Female 10/25/2020 5:11 AM EST Sexual Orientation Not on file documented as of this encounter Progress Notes * Mariano Manuel MD - 09/06/2018 11:46 AM EST I have reviewed the patient's record and given personal and/or family history of cancer she should be seen by genetic counselor. This will happen today. documented in this encounter Plan of Treatment Not on file documented as of this encounter Visit Diagnoses Not on filedocumented in this encounter Care Teams Weigh Box Tender Relationship Specialty Start Date End Date Poly Copeland MD [address] [place] [address] PCP - General 09/15/10 documented as of this encounter
--- OUTSIDE RECORDS SUMMARY | 2024-09-11 10:56 | XMS_ITS | Encounter Summary ---
Author Organization [facility] Address [facility] [place] [address] Care Team Providers Care Design Studio Consultant Name Role Phone Poly Copeland MD Primary Care Provider [phone] Encounter Details Date Type Department Care Team (Latest Contact Info) Description 08/15/2018 - 08/15/2018 11:59 PM EDT Hospital Encounter Radiology Library at [facility] [place] [phone] Mary Duque, SUNNI [address] [facility] [place] [address] Discharge Disposition: Home Social History Tobacco Use [...] 300 mg (750 mg) Chew 09/30/2010 11/16/2019 anastrozole (ARIMIDEX) 1 mg Tablet Take 1 tablet by mouth daily. 30 tablet 11 08/10/2018 11/16/2019 documented as of this encounter Plan of Treatment Not on file documented as of this encounter Procedures Procedure Name Priority Date/Time Associated Diagnosis Comments FILM LIBRARY STORAGE ONLY NUCLEAR MEDICINE Routine 08/15/2018 12:00 AM EDT documented in this encounter Results * Film Library- Storage Only nuclear medicine (08/15/2018 12:00 AM EDT) Narrative [facility] - 08/16/2018 10:28 AM EDT This exam is for storage only and is auto-finalizing. Mary Duque APRN [employer] FILM LIBRARY ORD ERABLES [place], [place] documented in this encounter Visit Diagnoses Not on filedocumented in this encounter Care Teams Design Studio Consultant Relationship Specialty Start Date End Date Poly Copeland MD [address] [place] [address] [address] [facility] [address] [place] [address] PCP - General 09/15/10 documented as of this encounter
--- OUTSIDE RECORDS SUMMARY | 2024-09-11 10:57 | XMS_ITS | Encounter Summary ---
Author Organization Formerly [facility] [place] [address] Care Team Providers Care Fundraising Consultant Name Role Phone Poly Copeland MD Primary Care Provider [phone] Encounter Details Date Type Department Care Team (Latest Contact Info) Description 03/17/2018 9:59 AM EDT - 03/17/2018 4:00 PM EDT Hospital Encounter [place]patient [place] [address] Deandre Mayen MD [facility] [place] [address] Discharge Disposition: Home Social History Tobacco Use [...] Sign Reading Time Taken Comments Blood Pressure 118/53 03/17/2018 2:15 PM EDT Pulse 65 03/17/2018 2:30 PM EDT Temperature 36.4 ??C (97.5 ??F) 03/17/2018 1:29 PM ED T Respiratory Rate 16 03/17/2018 2:15 PM EDT Oxygen Saturation 94% 03/17/2018 2:30 PM EDT Inhaled Oxygen Concentration - - Weight 92.5 kg (204 lb) 03/17/2018 10:19 AM EDT Height 160 cm (5' 3) 03/17/2018 10:19 AM EDT Body Mass Index 36.14 03/17/2018 10:19 AM EDT documented in this encounter Discharge Instructions * Discharge Instructions* Deandre Mayen MD - 03/17/2018 11:23 AM EDT General Anesthesia Discharge Instructions Go home and rest. You may be sleepy for several hours. Take it easy as sudden position changes may cause nausea and/or dizziness. Use caution on stairs. Follow a light to regular diet as tolerated today. If nausea occurs, start with clear liquids, and progress slowly to a regular diet. Do not drive, operate machinery, drink alcoholic beverages or make any legal decisions after havinggeneral anesthesia. The medications given change your reaction time and alter your judgement. IV site -- slight redness is normal, you can use warm compresses. If tenderness and redness increases or foul drainage occurs, please contact your M.D. Patients who have had endotracheal tubes/LMA (tubes used by the anesthesia staff to ensure a safe airway during your operation) may have a sore throat. This is normal and cold liquids or soothing lozenges will help ease this discomfort. Narcotic pain medications can cause constipation, please ask the surgeons office what they recommend for prevention of this. Some non-pharmaceutical means of constipation prevention include increasing intake of fluids, eating more fruits and vegetables as well as fruit juices. If you are uncomfortable and/or unable to urinate within 8 hours of discharge and it is before 5 pm, call your physician. If it is after 5pm go to the closest emergency room or call the hospital engine lathe set up operator at [phone] and ask for physician chemical operations and training covering for your physician. Questions or problems after 5pm or on a weekend: Call the [facility] engine lathe set up operator at and ask for the physician chemical operations and training covering for your doctor. At 10:45 am you received 1000 mg of acetaminophen- Your next dose should not be taken before 8 hours have passed. Next dose not before- 6:45 pm You should not take more than a total of 3000 mg of acetaminophen in a 24 hour period. Okay to shower 24 hours; you should place a towel around your neck and pin drain to the towel for your shower Activity as tolerated-- do not do any strenuous activity with your right arm until the drain is removed Call [phone] with any questions steristrips will fall off 7-14 days Wear bra as needed for comfort only. You may remove it as you wish Do not soak incision for 2 weeks Will call with pathology results in 5-7 days Ice pack to chest as needed oxycodone 1-2 tablets every 4 hours as needed Stool softeners as needed while on oxycodone May use tylenol and/or ibuprofen as needed for pain as needed Empty drain twice daily and record output Call clinic at [phone] for drain removal when output less than 30cc per day for [address] when off dilaudid by day and you feel comfortable turning quickly if you need to twist your body documented in this encounter Medications at Time of Discharge [...] 03/17/2018 04/05/2018 documented as of this encounter Progress Notes * Karely Villar, RN - 03/17/2018 4:00 PM EDT 14:40: Discharge instructions, VNA referral and H&P faxed to [facility]. I called and , from [facility] didn't have any questions, said the report was recieved and said patient should expect a call from their nurse in the morning. Patient and family aware. 1520: Patient's HEIDI bulb had already lost suction since her arrival to the unit. When she had arrived there was nothing in the bulb and it was not compressed. Dr. Mayen aware and it was then compressed. It did drain 10ml of sanguinous drainage when emptied at 1520. Dr. Mayen notified andshe stated to assess incision and monitor for another 30 minutes. Wound was checked and bra was repositioned. Dressing/incision remains WDL. Right chest area all soft when palpating. 15:55: HEIDI drain re-assessed. It appears to be functioning normally. There is drainage in the bulb and tubing. The bulb is compressed. I emptied it for another 10 ml of sanguinous drainage. Patient encouraged to notify us if she was concerned at all/if the area got hard and stopped draining. Discharge instructions and medications reviewed with patient and her son, JORGE and daughter in law, Edith. They verbalized understanding. Drain teaching done with patient and Edith, they verbalized understanding. Patient stated she has had a drain before. All questions answered and written copy sent home with patient. Patient has all belongings and supplies needed. Prescription given to patient. Patient/escort encouraged to call with questions or concerns. documented in this encounter H&P Notes * Deandre Mayen MD - 03/17/2018 6:46 AM EDT KEDAR Yoo is a 77 yo female who is seen in surgical consultation at the request of Dr. Hernandez. 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 . Of note, Naila has recently completed surgery/chemotherapy for an obstructing colon cancer. She had a difficult surgical recovery but did well with chemotherapy and is currently feeling well. ?? Screening mammogram in January, revealed a 5mm asymmetry at 10:00 in the right breast. Call backs and u/s confirmed a solid mass. Biopsy revealed IDC which is strongly ER/DC+ and her2-. No other lesions were noted in either breast. Naila denies breast masses, nipple discharge, adenopathy ?? SH: Has 3 sons, 5 grandchildren and 2 great-grandchildren. History of tobacco- quit 16 years ago. Rare david sethi. 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 ?? PMH HTN Colon cancer DCIS RAD ?? FH: Mother with likely colon ca ( secondary to GI malignancy) Maternal grandmother with breast cancer ? Review of Systems Constitutional: Negative. HENT: Negative. Eyes: Negative. Respiratory: Positive for shortness of breath (able to walk a flight of stairs slowly without stopping). Cardiovascular: Negative. Gastrointestinal: Negative. Endocrine: Negative. Genitourinary: Negative. Vaginal pain: DJD. Musculoskeletal: Positive for arthralgias. Skin: Negative. Allergic/Immunologic: Negative. Neurological: Negative. Hematological: Negative. Psychiatric/Behavioral: Negative. ? Objective: Physical Exam Constitutional: She is oriented to person, place, and time. She appears well-nourished. HENT: Head: Atraumatic. Cardiovascular: Normal rate and regular rhythm. Pulmonary/Chest: Effort normal and breath sounds normal. Breasts are asymmetrical. Abdominal: Soft. Musculoskeletal: Normal range of motion. Lymphadenopathy: She has no axillary adenopathy. Neurological: She is alert and oriented to person, place, and time. Skin: Skin is warm and dry. Psychiatric: She has a normal mood and affect. ?? Imaging: as in HPI CBC, LFTs normal 2 ?? 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 We discussed options for therapy including mastectomy or lumpectomy. Naila has alreadydecided she would like to proceed with mastectomy (she actually had requested CPM in 2008). She is not interested in breast reconstruction. Naila and I discussed the role of sentinel node excision at the time of mastectomy and we will proceed with this as well. Risks of bleeding, infection and lymphedema discussed. ?? I will set Naila up to see Dr Del Toro to discuss AI therapy post operatively. She will also see PT for ROM of the right arm. I do not suspect there will be a role for PMRT and unlikely she will requireany additional chemotherapy. Discussed genetic testing given personal history- we will set up appointment for this. Stable for OzR documented in this encounter Miscellaneous Notes * Op Note - Deandre Mayen MD - 03/17/2018 1:22 PM EDT [facility] Operative Note Patient Name: Kelly Strickland : [id number] MR#: [id number] Case Date: 03/17/2018 Surgeon: Surgeon(s) and Role: * Deandre Mayen MD - Primary Preoperative diagnosis: RIGHT BREAST CANCER Postoperative diagnosis: RIGHT BREAST CANCER Procedure(s) (LRB): MASTECTOMY, SIMPLE, COMPLETE (WRVU 15.85) (Right) BIOPSY OR EXCISION OF LYMPH NODE(S), OPEN, DEEP AXILLARY NODE(S) (WRVU 6.43) (Right) INTRAOPERATIVE ID (MAPPING) SENTINEL LYMPH NODE,INCLUDES INJECTION (WRVU 2.5) (Right) MODIFIER SENTINEL NODE EXCISION (Right) Anesthesia: General Estimated Blood Loss: 150 mL Specimens removed during surgery: Order Name Source Comment Collection Info Order Time SPECIMEN TO PATHOLOGY RIGHT BREAST CANCER Right breast. Short stitch superior, Long stitch lateral. excision Yes 03/17/2018 12:13 PM Number of tissue samples (in container) 1 Time specimen removed from patient: 12:12 PM SPECIMEN TO PATHOLOGY Fresh specimen. RIGHT BREAST CANCER Right axillary sentinel lymph node. excision No 03/17/2018 12:17 PM Number of tissue samples (in container) 1 Time specimen removed from patient: 12:16 PM Drains: Drain/Device Site 02/03/17 1325 Right upper quadrant collapsible closed device (Active) Drain/Device Site 03/17/18 1235 Right breast collapsible closed device (Active) Surgical Closure: Primary Closure - closure of ALL tissue levels during the original surgery regardless of wires, wickes, drains, or other devices extruding through the incision Disposition: awakened from anesthesia, extubated and taken to the recovery room in a stable condition, having suffered no apparent untoward event. Condition: doing well without problems (Please see the Surgical Encounter Summary for any Implant and Specimen details pertinent to this patient.) HPI/Surgical Indications: Naila is a 77 yo female with right breast cancer. Plan mastectomy and sentinel node excision. Procedure Description: Naila presented to radiology for technetium injection in the right breast for lymphatic mapping. Shethesincere was admitted through Same Day Surgery. She was brought to the Operating Room and laid supine on the operating table. General anesthetics were administered, and an LMA was placed for airway protection. Time-out confirmed the patient's identity, the correct surgical site, and the administration of prophylactic antibiotics. Once this had been confirmed, attention was turned to the right breast. An elliptical incision inclusive the nipple-areolar complex was made sharply. This was brought through the dermis using electrocautery. Skin flaps were elevated circumferentially inferiorly to the inframammary fold, laterally to the latissimus border, medially to the sternal border, and superiorly to the infraclavicular border. The breast was then mobilized inclusive of the underlying pectoralis major fascia. Attention was turned to the right axilla where 2 sentinel nodes identified with the gamma probe andwere excised. The wound was irrigated, hemostased, and closed over a 19-Estonian Pasquale drain. Steriledressings were applied. Infection Bundle used? N/A Attestation: Case Date: 03/17/2018 I performed this procedure without the involvement of a resident. DEANDRE MAYEN MD 03/17/2018 documented in this encounter Plan of Treatment Not on file documented as of this encounter Procedures Procedure Name Priority Date/Time Associated Diagnosis Comments ORDS - PROVIDER CARE SCAN 03/27/2018 12:00 AM EDT SPECIMEN TO PATHOLOGY Routine 03/17/2018 12:17 PM EDT SPECIMEN TO PATHOLOGY Routine 03/17/2018 12:13 PM EDT SURGICAL PATHOLOGY REPORT Routine 03/17/2018 12:12 PM EDT MODIFIER SENTINEL NODE EXCISION 03/17/2018 11:23 AM EDT RIGHT BREAST CANCER Case Notes Right breast- 1.360 kg. Counts: right axillary sentinel node-158, remaining count-47. INTRAOPERATIVE ID (MAPPING) SENTINEL LYMPH NODE,INCLUDES INJECTION (WRVU 2.5) 03/17/2018 11:23 AM EDT RIGHT BREAST CANCER Case Notes Right breast- 1.360 kg. Counts: right axillary sentinel node-158, remaining count-47. BIOPSY OR EXCISION OF LYMPH NODE(S), OPEN, DEEP AXILLARY NODE(S) (WRVU 6.43) 03/17/2018 11:23 AM EDT RIGHT BREAST CANCER Case Notes Right breast- 1.360 kg. Counts: right axillary sentinel node-158, remaining count-47. MASTECTOMY, SIMPLE, COMPLETE (WRVU 15) 03/17/2018 11:23 AM EDT RIGHT BREAST CANCER Case Notes Right breast- 1.360 kg. Counts: right axillary sentinel node-158, remaining count-47. documented in this encounter Results * SCAN DOC: ORDS - PROVIDER CARE (03/27/2018 12:00 AM EDT) Narrative 03/27/2018 12:00 AM EDT Ordered by an unspecified provider. Scanning Provider MEDIA MGR SCAN EXT O RDR/RSLT * Specimen to Pathology (03/17/2018 12:17 PM EDT) AP Specimen 03/17/2018 12:1 7 PM EDT 03/17/2018 12:17 PM EDT Narrative [facility] - 03/17/2018 12:17 PM EDT Specimen requisition ordered. ??Separate Pathology report to follow Deandre Mayen MD PATHOLOGY/CYTOLOGY ORDERABLES [facility] [place] [address] * Specimen to Pathology (03/17/2018 12:13 PM EDT) AP Specimen 03/17/2018 12:1 3 PM EDT 03/17/2018 12:13 PM EDT Narrative [facility] - 03/17/2018 12:13 PM EDT Specimen requisition ordered. ??Separate Pathology report to follow Deandre Mayen MD PATHOLOGY/CYTOLOGY ORDERABLES [facility] [place] [address] * Surgical Pathology Report (03/17/2018 12:12 PM EDT) Final Diagnosis ? Location: [facility] The signing pathologist has (i) examined the relevant preparation(s) for the specimen(s) and (ii) rendered or confirmed the diagnosis(es). . ? Addendum ADDENDUM DISCUSSION SPECIAL TEST PERFORMED: Test: ??Oncotype DX [facility] Case: ??, block A3 Performing Lab: ??[id number] [employer] Performing Lab Case: ??[id number] Reported by Lavon العلي MD Date reported: ??05/11/2018 For the full text of the [facility] [employer] report please refer to [facility] Pathology in the electronic health record (eDH). Electronically signed by: ??José Miguel MEDRANO, Fili Campbell Verified: ??05/17/2018 ?Pathologist Performed at: ??-[facility] Dept. of Pathology, [place], [place] ?Surgical Pathology DIAGNOSIS A - Right breast, mastectomy: 1. 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 Atypical lobular hyperplasia 4. Sclerosing adenosis, usual ductal hyperplasia, and apocrine metaplasia 5. Biopsy site changes B - Right axillary sentinel lymph node, excision: Two lymph nodes, no malignancy identified (0/2) Synoptic Report Specimen ? Procedure: ??Total mastectomy ? Specimen Laterality: ?? Right Tumor ? Histologic Type: ?? Invasive ductal carcinoma ? Histologic Grade ([place] Histologic Score) ?Glandular (Acinar) / Tubular Differentiation: ?Score 3 ?Nuclear Pleomorphism: ?? Score 2 ?Number of Mitoses per 10 High-Power [place]: ?9 mitotic figures ?Mitotic Rate: ?? Score 2 ?Overall Grade: ?? Grade 2 (scores of 6 or 7) ? Tumor Size: ?? 6 Millimeters (mm) ? Tumor Focality: ?? Single focus of invasive carcinoma ? Ductal Carcinoma In Situ (DCIS): ?DCIS is present in specimen ?Ductal Carcinoma In Situ (DCIS): ?? Negative for extensive intraductal ? component (EIC) ?Architectural Patterns: ?? Solid ?Nuclear Grade: ?? Grade II (intermediate) ?Necrosis: ??Present, focal (small foci or single cell necrosis) ? Tumor Extent ?Skin: ??Invasive carcinoma does not invade into the dermis or epidermis ?Nipple DCIS: ??DCIS does not involve the nipple epidermis ?Skeletal Muscle: ?? No skeletal muscle is present . DIAGNOSIS ? Accessory Findings ?Lymphovascular Invasion: ?? Not identified ?Microcalcificati ons: ?? Present in non-neoplastic tissue ?Treatment Effect: ?? No known presurgical therapy Margins ? Invasive Carcinoma Margins: ?? Uninvolved by invasive carcinoma ?Distance from Posterior Margin: ?? 8 Millimeters (mm) ? DCIS Margins: ?? Uninvolved by DCIS ?Distance from Other Specified Margin: ?All margins >10 Millimeters (mm) Lymph Nodes ? Number of Lymph Nodes with Macrometastases ( ??> 2 mm): ?? 0 ? Number of Lymph Nodes with Micrometastases ( ??> 0.2 mm to 2 mm and / or ??> 200 ?cells): ??0 ? Number of Lymph Nodes with Isolated Tumor Cells ( ??<= 0.2 mm and ??<= 200 cells): ? 0 ? Number of [place] Nodes Examined: ?2 Pathologic Stage Classification (pTNM, AJCC 8th Edition) ? Primary Tumor (Invasive Carcinoma) (pT): ?pT1b ? Regional Lymph Nodes (pN) ?Modifier: ??(sn): Only sentinel node(s) evaluated. ?Category (pN): ?? pN0 Tumor Block(s): ?? A3 2016 AJCC 8th Edition CAP Annual Release ER, DC, and HER2 studies (performed on prior biopsy, -[id number]): ER: Positive ( >90%, strong) DC: Positive ( >90%, strong) HER2 FISH: Negative Electronically signed by: ??Fili Valdez MD Verified: ??03/22/2018 ?Pathologist Performed at: ??-[facility] Dept. of Pathology, [facility], [place], [place] DISCUSSION The tumor measures at least 6 mm in the prior core biopsy, [id number]. In this specimen, the greatest microscopic measurement of residual tumor is 5 mm. CLINICAL INFORMATION Specimen Submitted: A - Right breast, short stitch superior, long stitch lateral B - Right axillary sentinel lymph node Clinical History and Diagnosis: Right breast cancer SPECIMEN PROCESSING A - ??Labeled/Fixative : Right breast. Short stitch superior, long stitch lateral, fresh Qty/Size/Weight: Single, 36.0 x 23.5 x 4.5 cm, 1360 grams. SPECIMEN DESCRIPTION Resection Specimen: Right simple mastectomy. Orientation: Suture oriented as follows: Short superior, long stitch lateral. The superior margin is inked orange, inferior margin green, lateral margin yellow, and the deep margin black Skin: 33.5 x 12.5 cm, no gross lesions present Nipple: 1.2 cm diameter, partially flattened but otherwise unremarkable. Deep Margin: Intact, no lesions ??. LESION Description: Mass. Location: 10 o 'clock. Size: 1.0 x 0.7 x 0.7 cm. . SPECIMEN PROCESSING Color: Lino-pink with yellow-white discoloration adjacent to the inserted [place] biopsy site marker. Consistency: Firm. Borders: Well circumscribed, rounded. Clip: A Polina biopsy site clip is present. Margins: Within 1.0 cm of the deep (black) margin; ?>5 cm from skin. OTHER Additional lesions: None grossly identified. Parenchyma: Predominant fatty, lobulated and focally hemorrhagic. Lymph Nodes: None present with the specimen. SECTIONS/PROCESSIN G: ?? (1) superficial nipple; (2) nipple base; (3-4) lesion and deep (black) margin; (5) adjacent inferior parenchyma; (6) Security Solutions Engineer lower outer quadrant parenchyma; (7) Security Solutions Engineer upper outer quadrant parenchyma; (8) cash posting representative upper inner quadrant parenchyma; (9) Security Solutions Engineer lower inner quadrant parenchyma. ?? (R9) Ischemic Time: 2 hours, 45 minutes B - ?? Labeled/Fixative: Right axillary sentinel lymph node, fresh. Quantity/Size: Two, 1.0 x 0.7 x 0.5 cm and 1.5 x 1.0 x 0.7 cm Tissue Description: Cortes-brown lymph nodes with surrounding adipose tissue Sections/Processin g: Both lymph nodes are serially sectioned and entirely submitted (T2) ??bradley 05/17/2018 4:49 PM EDT [facility] SENTINEL LYMPH NODE / Unknown 03/17/2018 12:12 PM EDT 03/17/2018 12:12 PM EDT SENTINEL LYMPH NODE / Unknown 03/17/2018 12:12 PM EDT 03/17/2018 12:12 PM EDT Deandre Mayen MD PATHOLOGY/CYTOLOGY ORDERABLES [facility] [place] [address] documented in this encounter Visit Diagnoses Not on filedocumented in this encounter Administered Medications Inactive Administered Medications - up to 3 most recent administrations Medication Order MAR Action Action Date Dose Rate Site acetaminophen (TYLENOL) tablet 1,000 mg 1,000 mg, Oral, ONCE, 1 dose, On Tue03/17/18 at 0630, Maximum dose of acetaminophen is 4000 mg from all sources in 24 hours., Routine Given 03/17/2018 10:39 AM EDT 1,000 mg lactated Ringers infusion 1,000 mL 1,000 mL, at 100 mL/hr, Intravenous, CONTINUOUS, Starting on Tue03/17/18 at 1100, Until Tue03/17/18 at 1619, Day of Surgery (Day of Procedure) New Bag 03/17/2018 11:16 AM EDT 1,000 mLs 100 mL/hr oxyCODONE (ROXICODONE) immediate release tablet 5 mg 5 mg, Oral, ONCE, 1 dose, On Tue03/17/18 at 1415, Routine Given 03/17/2018 1:56 PM EDT 5 mg documented in this encounter Active and Recently Administered Medications Times are shown in EDT. Scheduled Medication Order 03/15/2018 03/16/2018 03/17/2018 acetaminophen (TYLENOL) tablet 1,000 mg (COMPLETED) 1,000 mg, Oral, ONCE, 1 dose, On Tue03/17/18 at 0630, Maximum dose of acetaminophen is 4000 mg from all sources in 24 hours., Routine 1039 (Given - Provid er: Susanna Rao RN) ceFAZolin (ANCEF) 2g in dextrose 5% 100 mL (COMPLETED) 2 g, Intravenous, EVERY 3 HOURS, 1 dose, First dose on Tue03/17/18 at 1100, Administer over 30 Minutes, Intra-Operative (Intra-Procedure), Indication for (Active or Suspected): Prophylaxis 1140 (Given - Provid er: Kait Velez CRNA) oxyCODONE (ROXICODONE) immediate release tablet 5 mg (COMPLETED) 5 mg, Oral, ONCE, 1 dose, On Tue03/17/18 at 1415, Routine 1356 (Given - Provid er: Karely Villar RN) Continuous Medication Order 03/15/2018 03/16/2018 03/17/2018 lactated Ringers infusion 1,000 mL (CANCELED) 1,000 mL, at 100 mL/hr, Intravenous, CONTINUOUS, Starting on Tue03/17/18 at 1100, Until Tue03/17/18 at 1619, Day of Surgery (Day of Procedure) 1116 (New Bag - Prov ider: Susanna Rao RN)1330 (Stopped - Provider: Kait Velez CRNA) documented in this encounter Care Teams Fundraising Consultant Relationship Specialty Start Date End Date Poly Copeland MD [address] [place] [address] [address] [place] [address] PCP - General 09/15/10 documented as of this encounter"
--- OUTSIDE RECORDS SUMMARY | 2024-09-11 10:57 | XMS_ITS | Encounter Summary ---
Author Organization [facility] [place] [address] Care Team Providers Care Build Manager Name Role Phone Poly Copeland MD Primary Care Provider [phone] Encounter Details Date Type Department Care Team (Late st Contact Info) Description 08/04/2017 3:00 PM EDT Office Visit Hematology/Oncology at [address] [address] Mary Duque, RIGGING SUPERVISOR [address] [facility] [place] [address] Malignant neoplasm of ascending colon Social History [...] Sign Reading Time Taken Comments Blood Pressure 151/84 08/04/2017 3:04 PM EDT Pulse 93 08/04/2017 3:04 PM EDT Temperature 36.3 ??C (97.3 ??F) 08/04/2017 3:04 PM ED T Respiratory Rate 16 08/04/2017 3:04 PM EDT Oxygen Saturation 100% 08/04/2017 3:04 PM EDT Inhaled Oxygen Concentration - - Weight 96.2 kg (212 lb) 08/04/2017 3:04 PM EDT Height 162 cm (5' 3.78) 08/04/2017 3:04 PM EDT Body Mass Index 36.64 08/04/2017 3:04 PM EDT documented in this encounter Progress Notes * Mary Duque, RIGGING SUPERVISOR - 08/04/2017 3:45 PM EDT Subjective: Patient ID: Kelly Strickland is a 77 y.o. female. Problem List: 1. Colon cancer, [...] process. B. 01/23/17 - Right hemicolectomy Path ([facility] review) - CONSULTATION CASE Outside slide(s) labeled [id number], collection date 01/23/2017. Ascending colon, cecum, terminal [...] Adjuvant therapy with Folfox started 03/30/17, s/p 7 cycles Oxaliplatin dose reduced for cycle 2 due to headaches and jaw pain Cycle 3 delayed due to headaches 2. 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 No further therapy 3. HTN 4. COPD 5. S/p cholecystectomy [...] presentation today, she is by herself. She has had a little bit of trouble over the past week. The skin of her palms is somewhat red and dry and cracked. She states she uses lotion once a day on them. A few days ago she ate some chili and ended up with diarrhea which has been ongoing for 4 days.She ran out of her potassium pills 2 days ago and has not taken them over the past 2 days. She notes that the Tuesday after she gets treated-on Tuesday-is quite bad and she spends the entire day in bed. Despite all of this she states symptoms are not too bad and she is willing to continue on. Ana we are seeing her nearly a week early-practically midcycle at this point so I am not surprisedthat she is having a few difficulties at this time. She does look somewhat pale. Her headaches havereturned however she states they are only occasionally an issue and resolved with her lying down and relaxing. She has lost quite a few friends and family members who were around her age over the past summer which has made her more determined to continue on with treatment. She notes her granddaughter is somewhat distraught over all of this and very worried about her. Soc Hx: , lives alone in [place], [place] Tob - Quit 17 years ago Etoh - None Works [employer] Fam Hx: Father - at age 81, heart disease, ischemic bowel Mother - at 71, colon cancer, COPD Sibs - 3 sisters, 2 in good health, 1 with COPD. No cancer Children - 3 sons, all in good health Review of Systems Constitutional: Negative for activity change, appetite change, fatigue, fever and unexpected weightchange. HENT: Negative. Respiratory: Positive for shortness of breath (LONG, no change). Cardiovascular: Negative. Gastrointestinal: Positive for diarrhea (. After eating some chili x 4d). Genitourinary: Negative. Musculoskeletal: Negative. Skin: Positive for color change (.Left earlobe is swollen and erythematous). Palms are slightly erythematous and dry Neurological: Positive for headaches (Occasional). Hematological: Negative. Psychiatric/Behavioral: Negative. BP 151/84 (Patient Position: Sitting) Pulse 93 Temp 36.3 ??C (97.3 ??F) (Oral) Resp 16 Ht 162 cm (5' 3.78) Wt 96.2 kg (212 lb) SpO2 100% BMI 36.64 kg/m2 Wt Readings from Last 3 Encounters: 08/04/17 96.2 kg (212 lb) 07/27/17 97.3 kg (214 lb 8 oz) 07/22/17 96.9 kg (213 lb 9.6 oz) Objective: Physical Exam Constitutional: She is oriented to person, place, and time. She appears well- developed and well-nourished. No distress. HENT: Head: Normocephalic and atraumatic. Mouth/Throat: Oropharynx is clear and moist. No oropharyngeal exudate. Eyes: No scleral icterus. Cardiovascular: Normal rate and regular rhythm. Pulmonary/Chest: Effort normal. No respiratory distress. She has no wheezes. She has no rales. Diminished air movement throughout Abdominal: Soft. She exhibits no distension and no mass. There is no tenderness. There is no guarding. Midline incision well healed. Musculoskeletal: She exhibits no edema. Lymphadenopathy: She has no cervical adenopathy. She has no axillary adenopathy. Right: No supraclavicular adenopathy present. Left: No supraclavicular adenopathy present. Neurological: She is alert and oriented to person, place, and time. Coordination normal. Skin: Skin is warm and dry. No rash noted. Psychiatric: She has a normal mood and affect. Her behavior is normal. Vitals reviewed. Labs: 08/04/17 CBC: WBC 7.27 hemoglobin 11 platelets 185 CMP: Sodium 141 potassium 3.0 BUN 17 creatinine 0.99 glucose 124 calcium 9.0 total bili 0.28 AST 21ALT 18 alk phos 91 total protein 6.8 albumin 3.3 CEA: 05/27/17 <0.5 04/28/17 1.0 03/18/17 <0.5 ONCBCN ONCOLOGY (AMB) 07/27/2017 Day, Cycle Day 1, Cycle 8 fluorouracil (ADRUCIL) IV 300 mg/m2/dose = 627 mg leucovorin IV 350 mg OXALIplatin (ELOXATIN) IV 55.25 mg/m2/dose = 115 mg ONCBCN ONCOLOGY (AMB) 07/27/2017 Day, Cycle fluorouracil (ADRUCIL) IV 1,800 mg/m2/dose = 3,762 mg leucovorin IV OXALIplatin (ELOXATIN) IV Assessment and Plan: Ms. Strickland is a 77 yo female diagnosed with adenocarcinoma of the ascending colon in early 02/07 after presenting with abdominal pain, nausea and vomiting. On 01/23/17 she underwent a right hemicolectomy. The pathology report is above, high grade adenocarcinoma with 11/06 LN's involved, margins negative. CT showed no evidence of metastatic disease. We met and discussed the diagnosis, prognosis and treatment options. She was told that, given the LN involvement, this represents stage III colon cancer and is associated with an increased risk of disease recurrence. The high grade nature of the cancer is also concerning. In the setting of stage III colon cancer, adjuvant chemotherapy is considered standard of care and has been shown to reduce the risk of disease recurrence. ?? 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 ?? The finding of MMR deficiency also has implications for the choice of adjuvant therapy as this finding has been found to confer relative resistance to fluoropyrimidines alone. However, the efficacy of oxaliplatin based therapy appears to be retained. Therefore, although we would often consider capecitabine or Fluorouracil alone for a patient in this age group, I recommended Folfox in her case. On 03/30/17, she began adjuvant therapy with Folfox and has received 8 cycles. Cycle 1 was complicated by severe jaw pain with chewing and headaches. As a result, the oxaliplatin dose was reduced. The jaw pain improved but the headaches have been a persistent and significant issue. An MRI was done on04/28 and showed minimal white matter changes consistent with microvascular ischemic disease and was otherwise negative. She was seen by Dr. Ambrose in Neuro- Oncology on 05/10, please see above. She elected to continue with the chemotherapy. Her H/A disappeared however we are not sure why at this point. After 2 weeks free of headaches, she is now getting them again occasionally. They are no worsethan before. She does have some mouth sores but I think this will be cleared up by next week when she gets treated. In addition I have asked her to double up on her potassium for the next couple of days to correct her hypokalemia. I am hopeful her diarrhea will pass soon and encouraged Imodium to help it along if needed. It is becoming increasingly difficult to make sure that she is okay for treatment given the lack time a week before her next cycle. Therefore I have adjusted her cycle to be on Tuesday of next week-aday early-we will plan to see her back on Fridays so that the interval between seen and treatment is shortened. She will receive cycle 9 on 08/09 and we will see her again in two weeks. Mary Duque, MSN, LOADER ENGINEER, AOCN Hematology/Oncology Nurse Practitioner [place], [place] [phone] documented in this encounter Plan of Treatment Not on file documented as of this encounter Procedures Procedure Name Priority Date/Time Associated Diagnosis Comments LAB SCAN 08/04/2017 12:00 AM EDT documented in this encounter Results * SCAN DOC: LAB (08/04/2017 12:00 AM EDT) Narrative 08/04/2017 12:00 AM EDT Ordered by an unspecified provider. Scanning Provider MEDIA MGR SCAN EXT O RDR/RSLT documented in this encounter Visit Diagnoses Diagnosis Malignant neoplasm of ascending colon documented in this encounter Care Teams Build Manager Relationship Specialty Start Date End Date Poly Copeland MD [address] [place] [address] [address] [facility] [address] [place] [address] PCP - General 09/15/10 documented as of this encounter
--- OUTSIDE RECORDS SUMMARY | 2024-09-11 10:57 | XMS_ITS | Encounter Summary ---
Author Organization [facility] Address [facility] [place] [address] Care Team Providers Care Human Factors Advisor Lead Name Role Phone Poly Copeland MD Primary Care Provider [phone] Encounter Details Date Type Department Care Team (Latest Contact Info) Description 01/24/2018 - 01/24/2018 12:04 AM EDT Hospital Encounter Radiology Library at [facility] [place] [address] Tucker Calle MD [facility] [place] [address] Discharge Disposition: Home Social History Tobacco Use [...] 300 mg (750 mg) Chew 09/30/2010 11/16/2019 gabapentin (NEURONTIN) 100 mg CapsuleIndications:Ma lignant neoplasm of ascending colon,Neuropathic pain Take 1 capsule by mouth 3 times daily. 90 capsule 5 12/30/2017 03/02/2018 naproxen sodium (ANAPROX) 550 mg TabletIndications:Hea dache, chronic daily Take 1 tablet by mouth 2 times daily (with meals). After one week, may decrease to PRN 60 tablet 12 05/10/2017 03/02/2018 UMECLIDINIUM BROMIDE (INCRUSE ELLIPTA INHL) Inhale into the lungs daily. 03/02/2018 documented as of this encounter Plan of Treatment Not on file documented as of this encounter Procedures Procedure Name Priority Date/Time Associated Diagnosis Comments FILM LIBRARY-STORAGE ONLY US BREAST Routine 01/24/2018 12:00 AM EDT documented in this encounter Results * Film Library Storage Only US Breast (01/24/2018 12:00 AM EDT) Narrative [facility] - 01/25/2018 9:41 AM EDT This exam is for storage only and is auto-finalizing. Tucker Calle MD IMG FILM LIBRARY ORD ERABLES [place], [place] documented in this encounter Visit Diagnoses Not on filedocumented in this encounter Care Teams Human Factors Advisor Lead Relationship Specialty Start Date End Date Poly Copeland MD [address] [place] [address] PCP - General 09/15/10 documented as of this encounter
--- OUTSIDE RECORDS SUMMARY | 2024-09-11 10:57 | XMS_ITS | Encounter Summary ---
Author Organization [facility] [place] [address] Care Team Providers Care Cable Lacer Name Role Phone Poly Copeland MD Primary Care Provider [phone] Encounter Details Date Type Department Care Team (Late st Contact Info) Description 03/13/2018 Telephone Hematology [place] [address] Giana Mitchell RN Social History Tobacco Use Types Packs/Day Years Used Date Smoking Tobacco: Former Smokeless Tobacco: Never Comments:quite 17 years ago Sex and Gender Information Value Date Recorded Sex Assigned at Not on file Gender Identity Female 10/25/2020 5:11 AM EST Sexual Orientation Not on file documented as of this encounter Miscellaneous Notes * Telephone Encounter - Giana Mitchell RN - 03/13/2018 12:55 PM EDT Comprehensive Breast Program (CBP) Note ?? Kelly Strickland, who goes by Naila, is a 77 y.o. 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 Mayen. Reason for call: Contacted patient per request of Kina in CBP. Kelly had questions regarding needle localization (which she remembers from her first contralateral surgery, partial mastectomy). She remembered this as being very unpleasant. She states she is going to [facility] prior to surgery on dayof surgery. We discussed that the plan is for sentinel lymph node mapping in 3[facility] on 03/17 and not for needle localization. Plan: Questions were asked and answered to her satisfaction. Reminded her that we requested [facility] to come into her home to help with drain and post operative cares on 03/18 (request faxed 03/13). She is in agreement with the plan and thanked us for our time. Addendum 03/13/18: [facility] does not provide services in [place]. Referral for post operative VNA services faxed to [facility], [facility] and [facility], [place], [place] and they were also called. documented in this encounter Plan of Treatment Not on file documented as of this encounter Visit Diagnoses Not on filedocumented in this encounter Care Teams Cable Lacer Relationship Specialty Start Date End Date Poly Copeland MD [address] [place] [address] PCP - General 09/15/10 documented as of this encounter
--- OUTSIDE RECORDS SUMMARY | 2024-09-11 10:57 | XMS_ITS | Encounter Summary ---
Author Organization [facility] [place] [address] Care Team Providers Care Media Manager Name Role Phone Poly Copeland MD Primary Care Provider [phone] Encounter Details Date Type Department Care Team (Late st Contact Info) Description 02/02/2018 Orders [place] [address] Samantha Mayen MD [facility] [place] [address] Malignant neoplasm of right breast in female, [...] on file documented as of this encounter Results * (ABNORMAL) Comprehensive metabolic panel (non-fasting) (03/01/2018 8:57 AM EDT) Glucose 105 65 - 199 mg/dL [facility] Comment:Diabetes: >=200 mg/d L plus symptoms Blood Urea Nitrogen 16 8 - 18 mg/dL [facility] Creatinine 0.96 0.70 - 1.20 mg/dL [facility] Sodium 143 135 - 145 mmol/L [facility] Potassium 4.4 3.5 - 5.0 mmol/L [facility] Comment: Please note: ??Patients with WBC >100,000 may have falsely elevated Potassium levels. ??For accurate Potassium quantification in these patients send serum separator tube (gold top) for subsequent determinations. ??Contact the Clinical Chemistry Laboratory if there are any questions. Chloride 99 98 - 107 mmol/L [facility] Carbon Dioxide 30 22 - 31 mmol/L [facility] Anion Gap 14 5 - 15 mmol/L [facility] Calcium 9.7 8.5 - 10.5 mg/dL [facility] Protein, Total 7.4 6.1 - 8.0 gm/dL [facility] Albumin 4.5 3.2 - 5.2 gm/dL [facility] Aspartate Aminotransferase 17 0 - 30 unit/L [facility] Alanine Aminotransferase 14 0 - 30 unit/L [facility] Alkaline Phosphatase 72 40 - 104 unit/L [facility] Bilirubin, Total 0.3 0.2 - 1.3 mg/dL [facility] Est Glomerular Filtration Rate 57(L) >=60 [facility] Comment: The reported eGFR should be multiplied by 1.2 for patients. The MDRD is not an appropriate measure of renal function for patients with body mass extremes or in patients with acute kidney failure. [email or web address] [email or web address] Blood specimen (specimen) 03/01/2018 8:57 AM EDT 03/01/2018 9:01 AM EDT Narrative Resulting Agency Comment Spec In Lab Samantha Mayen MD CHEMISTRY ORDERABLE S [facility] [place] [address] documented in this encounter Visit Diagnoses Diagnosis Malignant neoplasm of right breast in female, estrogen receptor positive, unspecified site of breast documented in this encounter Care Teams Media Manager Relationship Specialty Start Date End Date Poly Copeland MD [address] [place] [address] PCP - General 09/15/10 documented as of this encounter
--- OUTSIDE RECORDS SUMMARY | 2024-09-11 10:57 | XMS_ITS | Encounter Summary ---
Author Organization [facility] Address [facility] [place] [address] Care Team Providers Care Hotel Services Supervisor Name Role Phone Poly Copeland MD Primary Care Provider [phone] Encounter Details Date Type Department Care Team (Latest Contact Info) Description 01/24/2018 12:05 AM EDT - 01/24/2018 11:59 PM EDT Hospital Encounter Radiology Library at [facility] [place] [place] [phone] Tucker Calle MD [facility] [place] [address] Discharge Disposition: Home Social History Tobacco Use [...] Associated Diagnosis Comments FILM LIBRARY STORAGE ONLY MAMMO Routine 01/24/2018 12:05 AM EDT documented in this encounter Results * Film Library- Storage Only Mammo (01/24/2018 12:05 AM EDT) Narrative [facility] - 01/25/2018 9:41 AM EDT This exam is for storage only and is auto-finalizing. Tucker Calle MD IMG FILM LIBRARY ORD ERABLES [place], [place] documented in this encounter Visit Diagnoses Not on filedocumented in this encounter Care Teams Hotel Services Supervisor Relationship Specialty Start Date End Date Poly Copeland MD [address] [place] [address] PCP - General 09/15/10 documented as of this encounter
--- OUTSIDE RECORDS SUMMARY | 2024-09-11 10:57 | XMS_ITS | Encounter Summary ---
Author Organization [facility] [place] [address] Care Team Providers Care Sandwich Counter Attendant Name Role Phone Poly Copeland MD Primary Care Provider [phone] Encounter Details Date Type Department Care Team (Late st Contact Info) Description 03/16/2018 Notes Only [place] [phone] Giana Mitchell RN Social History Tobacco Use Types Packs/Day Years Used Date Smoking Tobacco: Former Smokeless Tobacco: Never Comments:quite 17 years ago Sex and Gender Information Value Date Recorded Sex Assigned at Not on file Gender Identity Female 10/25/2020 5:11 AM EST Sexual Orientation Not on file documented as of this encounter Progress Notes * Giana Mitchell, RN - 03/16/2018 2:13 PM EDT Face to Face faxed to [facility], per their request,in advance of 03/17 mastectomy and SLNB. documented in this encounter Plan of Treatment Not on file documented as of this encounter Visit Diagnoses Not on filedocumented in this encounter Care Teams Sandwich Counter Attendant Relationship Specialty Start Date End Date Poly Copeland MD [address] [place], [place] [address] PCP - General 09/15/10 documented as of this encounter
--- OUTSIDE RECORDS SUMMARY | 2024-09-11 10:57 | XMS_ITS | Encounter Summary ---
Author [facility] [place] [address] Care Team Providers Care Supervisor Core Shop Name Role Phone Poly Copeland MD Primary Care Provider [phone] Encounter Details Date Type Department Care Team (Late st Contact Info) Description 03/17/2018 11:23 AM EDT Anesthesia Event [place] [id number] Chidi Butterfield MD [facility] [address] [place] [address] Theo Cobb MD [facility] [place] [address] Anesthesia Record Procedure Summary Procedure Name Responsible Anesthesiologist Anesthesia Start Time Anesthesia Stop Time MASTECTOMY, SIMPLE, COMPLETE (WRVU 15) (Right: Breast) Chidi Butterfield MD 03/17/18 1123 03/17/18 1330 Events Date Time Event Comment 03/17/2018 1123 AN Verify 1123 Start 1123 An Start Data 1132 An Induction 1132 An Intubation 1140 Anesthesia Ready 1151 Skin Incision 1152 Break/Relief In Zuleyma M Heliam tt, SHINGLE INSPECTOR 1220 Break/Relief Out 1320 Extubation/LMA Out 1322 an stop data 1330 Recovery or ICU Handoff Ramila ent care was transferred to the destination unit staff after review of the patient's medical history, current anesthetic/surgical status and plan, according to the Provider Handoff Checklist. 1330 Stop 1456 Meds Name Total Midazolam 0.5 mg fentaNYL 200 mcg Propofol 150 mg Propofol INF 441.6 mg Dexamethasone 8 mg Ondansetron 8 mg ePHEDrine 10 mg ceFAZolin (ANCEF) 2g in dextrose 5% 100 mL 2 g lactated Ringers infusion 1,000 mL 1,000 mL * Agents Name O2 Air N2O Sevoflurane (et) * Blood No blood administrations on file. Lines, Drains, and Airways Type Details Placement Removal Drain/Device Site 02/03/17; 1325; Righ t; upper quadrant; collapsible closed device (pigtail; #10 Swedish); Dr. Durbin 02/03/17 1325 by Juanita Gonzalez, RN (RETIRED) Implanted Port - Single Lumen (non-apheresis) 03/15/17; 1200; infraclavicular fossa, left; power injectable port; superior vena cava; Maddy Gardiner MD at [facility] 03/15/17 1200 by Mary Granda, RN Drain/Device Site 03/17/18; 1235; Righ t; breast; collapsible closed device ([address] Dr[address] Tello 03/17/18 1235 by Makayla Etienne, RN (RETIRED) Peripheral IV Line - Single Lumen 03/17/18; 1112; metacarpal vein (top of hand), right; 20 gauge; VJ Anesth; distraction, intradermal injection, tolerated well, appears comfortable; 1; metacarpal vein (top of hand), left; site benign ; no longer indicated, catheter/device intact, removed per policy/procedure; 03/17/18; 1345 03/17/18 1112 by Susanna Rao RN 03/17/18 1345 by Karely Villar, KENNEDY Supraglottic Mask Ventilation: Ea sy (1); LMA Type: iGel; LMA Size: 3; Inserted by: JEANNE Campoverde; Removal Date: 03/17/18; Removal Time: 131903/17/18 1132 by Kait Velez CRNA 03/17/18 1320 by Kait Velez, SHINGLE INSPECTOR Incision 03/17/18; 1150; [address]; 06/21/22 (LDA cleanup utility RA#[id number]); 1715 (LDA cleanup utility RA#[id number]) 03/17/18 1150 by Shirin Quintanilla RN 06/21/22 1715 by Daniele Ardon documented in this encounter Social History Tobacco Use Types Packs/Day Years Used Date Smoking Tobacco: Former Smokeless Tobacco: Never Comments:quite 17 years ago Sex and Gender Information Value Date Recorded Sex Assigned at Not on file Gender Identity Female 10/25/2020 5:11 AM EST Sexual Orientation Not on file documented as of this encounter OR Notes * Anesthesia Postprocedure Evaluation - Chidi Butterfield MD - 03/17/2018 2:57 PM EDT [facility] Department of Anesthesiology Post-procedure Note Patient: Kelly Strickland Procedure Summary Date Anesthesia Start Anesthesia Stop Room / Location 03/17/18 1123 1330 [facility] OR / [facility] Procedure Diagnosis Surgeon Responsible Provider MASTECTOMY, SIMPLE, COMPLETE (WRVU 15.85) (Right Breast); BIOPSY OR EXCISION OF LYMPH NODE(S), OPEN, DEEP AXILLARY NODE(S) (WRVU 6.43) (Right Axilla); INTRAOPERATIVE ID (MAPPING) SENTINEL LYMPH NODE,INCLUDES INJECTION (WRVU 2.5) (Right Axilla); MODIFIER SENTINEL NODE EXCISION (Right Axilla) (RIGHT BREAST CANCER) Samantha Mayen MD Nguyen, Tung T, MD All Anesthesia Providers: Anesthesiologist: Chidi Butterfield MD SHINGLE INSPECTOR: Kait Velez CRNA Most Recent Vitals: 03/17/18 1430 BP: Pulse: 65 Resp: Temp: SpO2: 94% Pain 3 (03/17/18 1430) Patient Location: PACU/[facility] Level of Consciousness: Awake and Alert Pain Management: Satisfactory Analgesia PONV: None Cardiovascular Status: At Baseline Respiratory Status: At Baseline Postoperative Fluid Status: Intravascular EUvolemia Possible Anesthetic Complications: NONE apparent at time of evaluation Final Primary Anesthesia Type: General (The anesthetic type performed was the same as planned.) Comments: * Anesthesia Procedure Notes - Chidi Butterfield MD - 03/17/2018 11:45 AM EDT Associated Order(s): ANESTHESIA BLOCK Procedure: Anesthesia Block Block: Post-op Pain Control, PEC block Start time: 03/17/2018 11:38 AM End time: 03/17/2018 11:41 AM Patient Location: Other - add comment below [facility] Indication/Prep Position: supine Prep: patient draped, chlorhexidine, mask, cap, sterile gloves, hand hygeine Laterality: right Injection Information Ultrasound Guidance: live and in-plane Ultrasound guidance was used to identify the targeted neuronal structure. Ultrasound was also used to identify needle positon and to identify surrounding tissue (bone, muscle, and blood vessels) to prevent inadvertent intraneural or intravascular needle placement and injection. The spread of local anesthetic was confirmed with live ultrasound imaging. Injection technique:single-shot Needle Length: 10 cm Gauge: 21 Needle Type: M-biiyk-[id number] Medication injection made incrementally with aspirations. Nerve infiltration solution through a needle Bupivicaine 0.5% 30 mL Resident: Second Resident: Fellow: Attending Physician: CHIDI BUTTERFIELD ~~~~~~~~~~~~~~~~~~~~~~~~~~~~~~~~~~~~~~~~~~~~~~~~~~~~~~~~~~~~ * Anesthesia Preprocedure Evaluation - Chidi Butterfield MD - 03/16/2018 4:37 PM EDT Images from the original note were not included. Pre-Anesthesia Evaluation for: Kelly Strickland a 77 y.o. female. Procedure(s): MASTECTOMY, SIMPLE, COMPLETE (WRVU 15.85) BIOPSY OR EXCISION OF LYMPH NODE(S), OPEN, DEEP AXILLARY NODE(S) (WRVU 6.43) INTRAOPERATIVE ID (MAPPING) SENTINEL LYMPH NODE,INCLUDES INJECTION (WRVU 2.5) MODIFIER SENTINEL NODE EXCISION Patient Active Problem List Diagnosis ??? Malignant neoplasm of right breast in female, estrogen receptor positive ??? Headache, chronic daily ??? Malignant neoplasm of ascending colon ??? Breast cancer in situ No past medical history on file. No past surgical history on file. Social History Substance Use Topics ??? Smoking status: Former Smoker ??? Smokeless tobacco: Never Used Comment: quite 17 years ago ??? Alcohol use Not on file History Drug Use Not on file Allergies Allergen Reactions ??? Sulfa (Sulfonamide Antibiotics) CIS - mouth swells Medications: MAR and/or home medications have been reviewed. Physical Exam: There were no vitals filed for this visit. There is no height or weight on file to calculate BMI. Airway Assessment: Mallampati: II TM distance: >3 FB Neck ROM: full Cardiovascular Assessment: Rhythm: regular Rate: normal Pulmonary Assessment: breath sounds clear to auscultation Dental Assessment: (+) upper dentures Misc Assessment: Patient is wearing No contact(s). Anesthesia Plan: ASA 2 general, with a(n) intravenous induction Region - Other Informed Consent: Anesthetic plan and risks discussed with patient. PAT Staff Note Attending NOTE Brief HPI: 77 y.o. with RIGHT breast CA to OR for RIGHT complete mastectomy + LN excision Diagnosis ??? Hx of ascending colon CA ??? COPD: stable, no hx of hospitalizations for COPD ??? Malignant neoplasm of right breast in female, estrogen receptor positive METS:4 (baseline) Cardiac Symptoms: denies EKG: none ECHO: none LABS: Lab Results Component Value Date HGB 13.7 03/01/2018 PLATELET 207 03/01/2018 NA 143 03/01/2018 K 4.4 03/01/2018 CREATININE 0.96 03/01/2018 Type and Screen: No results found for: ABORH Past anesthetic problems: denies Previous airway notes (on eDH): none NPO status: Reviewed and appropriate Anesthetic Plan: GA, unilateral PEC blocks Monitoring: Standard ASA monitors documented in this encounter Plan of Treatment Not on file documented as of this encounter Procedures Procedure Name Priority Date/Time Associated Diagnosis Comments ANESTHESIA BLOCK Routine 03/17/2018 11:4 7 AM EDT Procedure Note - Chidi Butterfield MD - 03/17/2018 11:45 AM EDTThis note is in progress. Procedure: Anesthesia Block Block: Post-op Pain Control, PEC block Start time: 03/17/2018 11:38 AM End time: 03/17/2018 11:41 AM Patient Location: Other - add comment below [facility] Indication/Prep Position: supine Prep: patient draped, chlorhexidine, mask, cap, sterile gloves, handhygeine Laterality: right Injection Information Ultrasound Guidance: live and in-plane Ultrasound guidance was used to identify the targeted neuronalstructure. Ultrasound was also used to identify needle positon and toidentify surrounding tissue (bone, muscle, and blood vessels) to preventinadvertent intraneural or intravascular needle placement and injection.The spread of local anesthetic was confirmed with live ultrasoundimaging. Injection technique:single-shot Needle Length: 10 cm Gauge: 21 Needle Type: Q-crlro-xgqjl Medication injection made incrementally with aspirations. Nerve infiltration solution through a needle Bupivicaine 0.5% 30 mL Resident: Second Resident: Fellow: Attending Physician: CHIDI BUTTERFIELD ~~~~~~~~~~~~~~~~~~~~~~~~~~~~~~~~~~~~~~~~~~~~~~~~~~~~~~~~~~~~ documented in this encounter Visit Diagnoses Not on filedocumented in this encounter Administered Medications Inactive Administered Medications - up to 3 most recent administrations Medication Order MAR Action Action Date Dose Rate Site ceFAZolin (ANCEF) 2g in dextrose 5% 100 mL 2 g, Intravenous, EVERY 3 HOURS, 1 dose, First dose on Tue03/17/18 at 1100, Administer over 30 Minutes, Intra-Operative (Intra-Procedure), Indication for (Active or Suspected): Prophylaxis Given 03/17/2018 11:40 AM EDT 2 g dexamethasone (DECADRON) injection PRN, Starting on Tue03/17/18 at 1136, Until Tue03/17/18 at 1330, Anesthesia Intra-op, Routine Given 03/17/2018 11:36 AM EDT 8 mg ePHEDrine 5 mg/mL multi-dose injection PRN, Starting on Tue03/17/18 at 1251, Until Tue03/17/18 at 1330, Anesthesia Intra-op, Routine Given 03/17/2018 12:51 PM EDT 10 mg fentaNYL 50 mcg/mL multi-dose injection PRN, Starting on Tue03/17/18 at 1134, Until Tue03/17/18 at 1330, Pain, Anesthesia Intra-op, Routine Given 03/17/2018 12:21 PM EDT 50 mcg Given 03/17/2018 12:10 PM EDT 50 mcg Given 03/17/2018 11:56 AM EDT 25 mcg midazolam (PF) (VERSED) 1 mg/mL multi-dose injection PRN, Starting on Tue03/17/18 at 1123, Until Tue03/17/18 at 1330, Sleep, Anesthesia Intra-op, Routine Given 03/17/2018 11:23 AM EDT 0.5 mg ondansetron (ZOFRAN) injection PRN, Starting on Tue03/17/18 at 1136, Until Tue03/17/18 at 1330, Nausea, Anesthesia Intra-op, Routine Given 03/17/2018 1:18 PM EDT 4 mg Given 03/17/2018 11:36 AM EDT 4 mg propofol (DIPRIVAN) 10 mg/mL bolus injection (Anesthesia) PRN, Starting on Tue03/17/18 at 1132, Until Tue03/17/18 at 1330, Anesthesia Intra-op Given 03/17/2018 11:32 AM EDT 150 mg propofol (DIPRIVAN) infusion CONTINUOUS PRN, Starting on Tue03/17/18 at 1136, Until Tue03/17/18 at 1330, Anesthesia Intra-op, Routine New Bag 03/17/2018 11:36 AM EDT 50 mcg/kg/min 27.6 mL/hr documented in this encounter Care Teams Supervisor Core Shop Relationship Specialty Start Date End Date Poly Copeland MD [address] [place], [place] [address] [facility] [address] [place] [address] PCP - General 09/15/10 documented as of this encounter
--- OUTSIDE RECORDS SUMMARY | 2024-09-11 10:57 | XMS_ITS | Encounter Summary ---
Author Organization [facility] Address [facility] [place] [address] Care Team Providers Care Social Media Sr Strategy Manager Name Role Phone Poly Copeland MD Primary Care Provider [phone] Encounter Details Date Type Department Care Team (Latest Contact Info) Description 01/30/2018 2:27 PM EDT - 01/30/2018 11:59 PM EDT Hospital En[place] [phone] Anabell Muñoz MD [facility] [place] [address] Abnormal mammogram Discharge Disposition: Home Social History Tobacco Use [...] Procedure Name Priority Date/Time Associated Diagnosis Comments MAMMO US BIOPSY RIGHT Routine 01/30/2018 2:50 PM EDT Abnormal mammogram SPECIMEN TO PATHOLOGY Routine 01/30/2018 2:49 PM EDT SURGICAL PATHOLOGY REPORT Routine 01/30/2018 2:45 PM EDT documented in this encounter Results * Mammo Us Biopsy Right (01/30/2018 2:50 PM EDT) Anatomical Region Laterality Modality Breast Right Mammography Impressions 02/01/2018 5:34 PM EDT Concordant malignant result RECOMMENDATION: Definitive surgical management. I phoned these results to the patient on 02/01/2018. REVIEW PATH CONFERENCE?: No Narrative 02/01/2018 5:34 PM EDT RIGHT BREAST ULTRASOUND GUIDED AUTOMATED CORE BIOPSY CLINICAL HISTORY: abnormal mammogram. 0.7 cm right breast mass (associated with 2.5 cm fine linear pleomorphic calcifications) at the right breast 10:00 radian 9 cm from the nipple. PROCEDURAL DETAILS: Informed consent was obtained and a timeout procedure was performed per protocol. Using local anesthetic (less than 5 cc of 1% lidocaine), sterile technique, and ultrasound guidance the lesion in the right breast was localized and sampled. Multiple satisfactory core biopsy specimens were obtained using a 14-gauge automated device. A [address] 14G marker clip was placed. The clip was in satisfactory position both sonographically and at follow-up cranio-caudal and true lateral digital mammography. COMPLICATIONS: None. PROCEDURAL ATTESTATION: Resident: None I performed the procedure without a resident. IMAGING DIFFERENTIAL DIAGNOSIS: Invasive carcinoma PATHOLOGIC DIAGNOSIS: Invasive carcinoma, ductal Anabell Muñoz MD IMG MAMMO ORDERABL ES * Specimen to Pathology (01/30/2018 2:49 PM EDT) AP Specimen 01/30/2018 2:49 PM EDT 01/30/2018 2:49 PM EDT Narrative [facility] - 01/30/2018 2:49 PM EDT Specimen requisition ordered. ??Separate Pathology report to follow Anabell Muñoz MD PATHOLOGY/CYTOLOGY ORDERABLES [facility] [place] [address] * Surgical Pathology Report (01/30/2018 2:45 PM EDT) Final Diagnosis [id number] ? Location: 3L The signing pathologist has (i) examined the relevant preparation(s) for the specimen(s) and (ii) rendered or confirmed the diagnosis(es). . ?Molecular Genetics RESULTS TEST: ??HER2(ERBB2)FISH, Breast METHOD: ??Fluorescence in situ hybridization (FISH) with chromosome 17 centromere (17p11.1-q11.1) probe and a locus specific probe for the HER2 gene locus (17q11.2- q12). SAMPLE ANALYZED: A1-6 RESULT: ?NEGATIVE FOR HER2/CYNDI AMPLIFICATION ? TOTAL # SIGNALS/TOTAL # NUCLEI COUNTED FOR HER2 PROBE = 85 ? TOTAL # SIGNALS/TOTAL # NUCLEI COUNTED FOR CEP-17 PROBE = 81 ? HER2 TO CEP-17 RATIO = 1.0 ? (NORMAL RANGE ? <2.0) ? TOTAL # NUCLEI COUNTED = 40 Interpretation: ??Paraffin-embedde d tissue sections were submitted for HER2(ERBB2)gene amplification analysis by FISH. ??Direct analysis was performed using the SueEasy Kit. ??Slide adequacy and signal enumeration were evaluated and satisfactory for both control and patient slides. ??A signal ratio derived from the HER2 probe and the CEP-17 centromere probe of ?2.0 is considered positive for HER2 gene amplification. The 2013 ASCO/CAP guideline recommendation for HER2 testing in breast cancer states that samples with a HER2 to CEP-17 ratio of less than 2.0 are non-amplified. Specimens with a HER2 to CEP-17 range of ?2.0 are considered amplified. This test is approved by the U.S. FDA for clinical diagnostic use. Reference: Veronika SOTOMAYOR, et al. Recommendations for human epidermal growth factor receptor 2 testing in breast cancer: [place] Society of Clinical Oncology/College of [place] Pathologists clinical practice guideline update. J Clin Oncol.2013 Nov . Reviewed by: Magda Rosa MD Hospital Personnel Director, Molecular Pathology _ Electronically signed by: ??[place] MEDRANO, Rashaun Verified: ??02/03/2018 ?Pathologist Performed at: ??-[facility] Dept. of Pathology, [place], [place] ?Surgical Pathology DIAGNOSIS Needle biopsies: ??Right breast. 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 Microcalcification s: ??NA . DIAGNOSIS On A1 - ER immunoreactivity: Positive ( ??>90% cancer cells with immunostaining) Stain intensity: Strong WI immunoreactivity: Positive ( ??>90% cancer cells with immunostaining) Stain intensity: Positive HER2 FISH: separate report to follow ? *Diagnostic catherine for hormone receptors (ASCO/CAP GUIDELINES, 2010): ?Negative immunoreactivity: ?? <1% tumor cells with immunostaining ?Positive immunoreactivity: ?? >1% tumor cells with immunostaining Immunohistochemica l assays were performed on paraffin-embedded tissue sections fixed in 10% neutral buffered formalin for 6-72 hours using the polymer system technique with appropriate controls. The assays were performed according to the underwriting intern ? 's instructions using Anti-ER (SP1) and Anti-WI (16) antibodies. Electronically signed by: ??Sonia Oh DO Verified: ??02/01/2018 ?Pathologist Performed at: ??-[facility] Dept. of Pathology, [place], [place] CLINICAL INFORMATION Specimen Submitted: A - Right breast mass, biopsy (3) Clinical History: Right breast mass; IDC, ILC Report to: Poly Copeland SPECIMEN PROCESSING A - ??Labeled/Fixative : Right breast ultrasound biopsy 14-gauge, formalin. Quantity/Size: Three cores plus fragments, from 0.7 x 0.1 cm to 1.6 x 0.1 cm. Tissue Description: Fatty, salamanca-yellow needle core biopsies. Ischemic Time: Less than one minute . Sections/Processin g: (T1) ??pps 02/03/2018 6:15 PM EDT [facility] BREAST STRUCTURE / Unknown 01/30/2018 2:45 PM EDT 01/30/2018 2:45 PM EDT Anabell Muñoz MD PATHOLOGY/CYTOLOGY ORDERABLES [facility] [place] [address] documented in this encounter Visit Diagnoses Diagnosis Abnormal mammogram Abnormal mammogram, unspecified documented in this encounter Administered Medications Inactive Administered Medications - up to 3 most recent administrations Medication Order MAR Action Action Date Dose Rate Site lidocaine (XYLOCAINE) 10 mg/mL (1 %) injection 10 mg 10 mg, Intradermal, ONCE, 1 dose, On Tue01/30/18 at 1515, Routine Given 01/30/2018 2:40 PM EDT 10 mg documented in this encounter Care Teams Social Media Sr Strategy Manager Relationship Specialty Start Date End Date Poly Copeland MD [address] [place] [address] [place] [address] PCP - General 09/15/10 documented as of this encounter
--- OUTSIDE RECORDS SUMMARY | 2024-09-11 10:57 | XMS_ITS | Encounter Summary ---
Author Organization [facility] Address [facility] [place] [address] Care Team Providers Care [employer] Dean Name Role Phone Poly Copeland MD Primary Care Provider Reason for Visit * Reason Comments Chemotherapy Cycle 9, Day 1 -- Fo lfox * Treatment/Therapy Plan Authorization (Routine) - Closed Specialty Diagnoses / Procedures Referred By Contac t Referred To Contact Diagnoses Malignant neoplasm of ascending colon Raffi Del Toro MD [facility] [place] [address] Referral ID Status Reason Start Date Expiration Date Visits Re quested Visits Authorized [id number] Closed 03/04/2017 03/04/2018 1 1 Encounter Details Date Type Department Care Team (Late st Contact Info) Description 08/09/2017 11:30 AM EDT Infusion Hematology Oncology at [address] [phone] Malignant neoplasm of ascending colon Social History [...] Sign Reading Time Taken Comments Blood Pressure 123/75 08/09/2017 11:48 AM EDT Pulse 83 08/09/2017 11:48 AM EDT Temperature 36.6 ??C (97.9 ??F) 08/09/2017 11:48 AM E DT Respiratory Rate 18 08/09/2017 11:48 AM EDT Oxygen Saturation 100% 08/09/2017 11:48 AM EDT Inhaled Oxygen Concentration - - Weight 98.7 kg (217 lb 9.6 oz) 08/09/2017 11:48 AM EDT Height 162 cm (5' 3.78) 08/09/2017 11:48 AM EDT copied Body Mass Index 37.61 08/09/2017 11:48 AM EDT documented in this encounter Progress Notes * Mary Granda RN - 08/09/2017 11:30 AM EDT INFUSION THERAPY ADMINISTRATION NOTES DIAGNOSIS: Colon cancer CYCLE #: Cycle 9, Day 1 -- Folfox REASON FOR VISIT: To receive chemotherapy. SUBJECTIVE: Ashley offers no complaints. OBJECTIVE: VSS. Labs evaluated and are wnl for treatment. LAB DATA: WBC - 7.27, H/H - 10.8/34.2, Plt Ct - 159, ANC - 3.50, Lytes wnl, BUN/CR - 17/0.94 IV ACCESS: Port accessed off site, flushes readily with brisk blood return. Pre administration: Chemotherapy orders independently verified for drug name, route, and dosage per patient's height, weight and BSA by Starla Granda Rn and Mitali Richter [facility]. REACTIONS (DESCRIPTION, TIME, INTERVENTION AND EFFECTIVENESS) none ASSESSMENT: Kelly was awake, alert and tolerated treatment well. ASSESSMENT CADD pump provided by [employer], pump was double checked by Starla Granda RN and Libertad Lobo RN prior to connection. Pump was checked 15min after connection and 0.8 cc was infused. Patient was awake, alert and tolerated treatment well. PLAN Patient is aware to call clinic with any questions and concerns M-F 8am to 5pm and to call [employer] with any questions and concerns in the off hours. Return to clinic for provider visit and disconnect. documented in this encounter Plan of Treatment Not on file documented as of this encounter Procedures Procedure Name Priority Date/Time Associated Diagnosis Comments LAB SCAN 08/09/2017 12:00 AM EDT documented in this encounter Results * SCAN DOC: LAB (08/09/2017 12:00 AM EDT) Narrative 08/09/2017 12:00 AM EDT Ordered by an unspecified provider. Scanning Provider MEDIA MGR SCAN EXT O RDR/RSLT documented in this encounter Visit Diagnoses Diagnosis Malignant neoplasm of ascending colon documented in this encounter Administered Medications Inactive Administered Medications - up to 3 most recent administrations Medication Order MAR Action Action Date Dose Rate Site dexamethasone (DECADRON) tablet 10 mg 10 mg, Oral, ONCE, 1 dose, On Tue08/09/17 at 1145, Administer prior to chemotherapy, Routine Given 08/09/2017 12:10 PM EDT 10 mg fluorouracil (ADRUCIL) 3,762 mg in sodium chloride 0.9% 138 mL chemo infusion 3,762 mg (1,800 mg/m2/dose ? 2.09 m2 Treatment Plan BSA from Recorded weight), Intravenous, ONCE, 1 dose, On Tue08/09/17 at 1415, Administer over 46 Hours, Warning Vesicant/Irritant Medication To be infused via an ambulatory infusion CADD Legacy Plus pump continuously IV at 3 mL/hr for 46 hours. Pump contains a 46 hour supply and provides a daily dose of 1200 mg/m2/day = 2400 mg/m2 IV over 46 hours with 12 mL of overfill in bag. Given 08/09/2017 3:02 PM EDT 3,762 mg 3 mL/hr fluorouracil (ADRUCIL) chemo injection 627 mg 627 mg (300 mg/m2/dose ? 2.09 m2 Treatment Plan BSA from Recorded weight), Intravenous, ONCE, 1 dose, On Tue08/09/17 at 1245, Administer over 5 Minutes Given 08/09/2017 2:53 PM EDT 627 mg 150.5 mL/hr leucovorin 350 mg in dextrose 5% 535 mL infusion 350 mg, Intravenous, ONCE, 1 dose, On Tue08/09/17 at 1245, Administer over 85 Minutes, May Y-site with OXALIplatin New Bag 08/09/2017 1:13 PM EDT 350 mg 378 mL/hr ondansetron (ZOFRAN) 8 mg in sodium chloride 0.9% 50 mL 8 mg, Intravenous, ONCE, 1 dose, On Tue08/09/17 at 1145, Administer over 15 Minutes New Bag 08/09/2017 12:10 PM EDT 8 mg 216 mL/hr OXALIplatin (ELOXATIN) 115 mg in dextrose 5% 273 mL chemo infusion 115 mg (rounded from 115.4725 mg = 55.25 mg/m2/dose ? 2.09 m2 Treatment Plan BSA from Recorded weight), Intravenous, ONCE, 1 dose, On Tue08/09/17 at 1245, Administer over 85 Minutes, Compatible with dextrose-containing solution only. Warning Vesicant/Irritant Medication New Bag 08/09/2017 1:14 PM EDT 115 mg 193 mL/hr documented in this encounter Care Teams [employer] Dean Relationship Specialty Start Date End Date Poly Copeland MD [address] [place] [address] PCP - General 09/15/10 documented as of this encounter
--- OUTSIDE RECORDS SUMMARY | 2024-09-11 10:57 | XMS_ITS | Encounter Summary ---
Author Organization [facility] Address [facility] [place] [address] Care Team Providers Care Social Services Aide Name Role Phone Poly Copeland MD Primary Care Provider Encounter Details Date Type Department Care Team (Late st Contact Info) Description 08/19/2017 11:00 AM EDT Office Visit Hematology/Oncology at [address] [phone] [address] [facility] [address] Malignant neoplasm of ascending colon; Skin infection Social History Tobacco Use Types Packs/Day Years Used Date Smoking Tobacco: Former Smokeless Tobacco: Never Comments:quite 17 years ago Sex and Gender Information Value Date Recorded Sex Assigned at Not on file Gender Identity Female 10/25/2020 5:11 AM EST Sexual Orientation Not on file documented as of this encounter Last Filed Vital Signs Vital Sign Reading Time Taken Comments Blood Pressure 168/59 08/19/2017 10:20 AM EDT Pulse 97 08/19/2017 10:20 AM EDT Temperature 36.6 ??C (97.9 ??F) 08/19/2017 10:20 AM E DT Respiratory Rate 18 08/19/2017 10:20 AM EDT Oxygen Saturation 100% 08/19/2017 10:20 AM EDT Inhaled Oxygen Concentration - - Weight 95.7 kg (211 lb) 08/19/2017 10:20 AM EDT Height 162 cm (5' 3.78) 08/19/2017 10:20 AM EDT copied Body Mass Index 36.47 08/19/2017 10:20 AM EDT documented in this encounter Progress Notes * Raffi Del Toro MD - 08/19/2017 11:00 AM EDT Subjective: Patient ID: Kelly Strickland [...] process. B. 01/23/17 - Right hemicolectomy Path ([facility] review) - CONSULTATION CASE Outside slide(s) labeled [id number], collection date 01/23/2017. Ascending colon, cecum, terminal [...] today, she is by herself. She is feeling fair. She has continued chronic headaches which are the same. She doesn't consider this a big issue. She also has mouth sores which have been worse for the past 4 weeks. These are located on the inner aspect of her lower lip. She is using baking soda rinses. These have improved but have not gone away. She has small amounts of blood when sheblows her nose. 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 This is a newer symptom. She has tingling in her hands and also says they go into spasm. She still has that with cold exposure. She has loose stools on occasion. She has had no nausea or vomiting. Her eating has been limited by the mouth sores. Her weight is down 6# compared with the last recorded weight done here on 08/09. Her energy level is good. No fevers or signs/symptoms of infection. Soc Hx: , lives alone in [place], [place] Tob - Quit 17 years ago Etoh - None Works [employer] Fam Hx: Father - at age 81, heart disease, ischemic bowel Mother - at 71, colon cancer, COPD Sibs - 3 sisters, 2 in good health, 1 with COPD. No cancer Children - 3 sons, all in good health Review of Systems Constitutional: Negative for activity change, appetite change, fatigue, fever and unexpected weightchange. HENT: Positive for mouth sores. Respiratory: Positive for shortness of breath (LONG, no change). Cardiovascular: Negative. Gastrointestinal: Negative. Genitourinary: Negative. Musculoskeletal: Negative. Skin: Negative. Neurological: Positive for numbness (tingling of fingers) and headaches. Hematological: Negative. Psychiatric/Behavioral: Negative. Objective: Physical Exam [...] is warm and dry. No rash noted. There is erythema (at mediport site). Psychiatric: She has a normal mood and affect. Her behavior is normal. Vitals reviewed. Labs: WBC/ANC - 6., Hgb/Hct - 11.4/34.5, Plts - 176,000. BUN/Cr -15/1.08. Alb - 3.3 Lytes and LFTs o/w unremarkable. CEA: 05/27/17 <0.5 04/28/17 1.0 03/18/17 <0.5 Assessment [...] adjuvant therapy with Folfox and has received 9 cycles. Cycle 1 was complicated by severe [...] She elected to continue with the chemotherapy. She is starting to have some increased toxicity related to the therapy, including an increase in neuropathy as well new onset of stomatitis. Options include continuing therapy at the current doses with the risk of increased and potentially permanent neuropathy and increased (although reversible) problems with stomatitis or stopping therapy. We talked about duration of therapy and the data looking at this question. A study looking at 3 months vs 6 monthsof therapy showed the shorter duration to be nearly equivalent to longer duration of therapy. She has received on intermediate duration of therapy and therefore, I think it is reasonable to stop therapy at this point and she seems to be comfortable with that. I will plan to see her in a month with labs and a CT c/a/p. For the redness at the [facility] site, I gave her a prescription today for Keflex. documented in this encounter Plan of Treatment Not on file documented as of this encounter Procedures Procedure Name Priority Date/Time Associated Diagnosis Comments CT SCAN (SCAN) 09/08/2017 12:00 AM EST LAB SCAN 08/19/2017 12:00 AM EDT documented in this encounter Results * SCAN DOC: CT SCAN (09/08/2017 12:00 AM EST) Anatomical Region Laterality Modality Other Narrative 09/08/2017 12:00 AM EST Ordered by an unspecified provider. Scanning Provider MEDIA MGR SCAN EXT O RDR/RSLT * SCAN DOC: LAB (08/19/2017 12:00 AM EDT) Narrative 08/19/2017 12:00 AM EDT Ordered by an unspecified provider. Scanning Provider MEDIA MGR SCAN EXT O RDR/RSLT documented in this encounter Visit Diagnoses Diagnosis Malignant neoplasm of ascending colon Skin infection Unspecified local infection of skin and subcutaneous tissue documented in this encounter Care Teams Social Services Aide Relationship Specialty Start Date End Date Poly Copeland MD [address] [place] [address] PCP - General 09/15/10 documented as of this encounter
--- OUTSIDE RECORDS SUMMARY | 2024-09-11 10:57 | XMS_ITS | Encounter Summary ---
Author Organization [facility] Address [facility] [place] [address] Care Team Providers Care Feature Writer Name Role Phone Poly Copeland MD Primary Care Provider [phone] Encounter Details Date Type Department Care Team (Latest Contact Info) Description 01/30/2018 2:26 PM EDT Hospital [place] [phone] Anabell Muñoz MD [facility] [place] [address] Abnormal mammogram Discharge Disposition: Home Social History [...] Name Priority Date/Time Associated Diagnosis Comments MAMMO DIAGNOSTIC WITHOUT CAD RIGHT Routine 01/30/2018 3:13 PM EDT Abnormal mammogram documented in this encounter Results * Mammo Diagnostic Without Cad Right (01/30/2018 3:13 PM EDT) Anatomical Region Laterality Modality Breast [...] obtained using a 14-gauge automated device. A Procyrion Polina 14G marker clip was placed. The clip was in satisfactory position both sonographically and at follow-up cranio-caudal and true lateral digital mammography. COMPLICATIONS: None. PROCEDURAL ATTESTATION: Resident: None I performed the procedure without a resident. IMAGING DIFFERENTIAL DIAGNOSIS: Invasive carcinoma PATHOLOGIC DIAGNOSIS: Invasive carcinoma, ductal Anabell Muñoz MD IMG MAMMO ORDERABL ES documented in this encounter Visit Diagnoses Diagnosis Abnormal mammogram Abnormal mammogram, unspecified documented in this encounter Care Teams Feature Writer Relationship Specialty Start Date End Date Poly Copeland MD [address] [place] [address] PCP - General 09/15/10 documented as of this encounter
--- OUTSIDE RECORDS SUMMARY | 2024-09-11 10:57 | XMS_ITS | Encounter Summary ---
Author Organization [facility] Address [facility] [place] [address] Care Team Providers Care Gas Blender Name Role Phone Poly Copeland MD Primary Care Provider [phone] Reason for Visit * Reason Comments Chemotherapy Cycle 6 Day 3 * Treatment/Therapy Plan Authorization (Routine) - Closed Specialty Diagnoses / Procedures Referred By Contac t Referred To Contact Diagnoses Malignant neoplasm of ascending colon Raffi Del Toro MD [facility] [place] [address] Referral ID Status Reason Start Date Expiration Date Visits Re quested Visits Authorized [id number] Closed 03/04/2017 03/04/2018 1 1 Encounter Details Date Type Department Care Team (Late st Contact Info) Description 07/01/2017 12:00 PM EDT Infusion Hematology Oncology at [address] [phone] Malignant neoplasm of ascending colon [...] Sign Reading Time Taken Comments Blood Pressure 136/90 07/01/2017 12:32 PM EDT Pulse 80 07/01/2017 12:32 PM EDT Temperature 36.5 ??C (97.7 ??F) 07/01/2017 12:32 PM E DT Respiratory Rate 18 07/01/2017 12:32 PM EDT Oxygen Saturation 100% 07/01/2017 12:32 PM EDT Inhaled Oxygen Concentration - - Weight - - Height - - Body Mass Index - - documented in this encounter Progress Notes * Alise Fatima RN - 07/01/2017 12:00 PM EDT INFUSION THERAPY ADMINISTRATION NOTES DIAGNOSIS: 1. Malignant neoplasm of ascending colon Core Assembly Supervisor orders intended for Ambulatory Clinic, Inpatient and Home Infusion use. Home Infusion: Pump Disconnect heparin, porcine 100 unit/mL flush 500 Units sodium chloride 0.9 % flush 5-20 mL Core Assembly Supervisor orders intended for Ambulatory Clinic, Inpatient and Home Infusion use. REASON FOR VISIT: Discontinue 5FU home infusion and deaccess mediport SUBJECTIVE Kelly Strickland denies any complaints. OBJECTIVE: VITAL SIGNS: BP 136/90 (Patient Position: Sitting) Pulse 80 Temp 36.5 ??C (97.7 ??F) (Oral) Resp 18 [id number]% REACTIONS (DESCRIPTION, TIME, INTERVENTION AND EFFECTIVENESS) none ASSESSMENT Kelly Strickland was awake, alert and he tolerated treatment well. PLAN Return to clinic per routine. documented in this encounter Plan of Treatment Not on file documented as of this encounter Visit Diagnoses Diagnosis Malignant neoplasm of ascending colon documented in this encounter Administered Medications Inactive Administered Medications - up to 3 most recent administrations Medication Order MAR Action Action Date Dose Rate Site heparin, porcine 100 unit/mL flush 500 Units 500 Units, Intravenous, ONCE PRN, Starting on Tue07/01/17 at 1248, Until Tue07/01/17 at 1854, Line Care, Refer to Intravenous (IV) Procedure: Accessing Implanted Vascular Access Devices (654) procedure and/or Intravenous (IV) Job Aid: Adult Flushing & Catheter Care (2948) job aid for additional information regarding guidelines and administration., Routine Given 07/01/2017 1:00 PM EDT 500 Units sodium chloride 0.9 % flush 5-20 mL 5-20 mL, Intravenous, EVERY 1 MIN PRN, Starting on Tue07/01/17 at 1248, Until Tue07/01/17 at 1854, Line Care, Flush pertains to all indwelling lines. Flush per protocol found in the job aid using the link provided on this medication record. Refer to Intravenous (IV) Job Aid: Adult Flushing & Catheter Care (1234) job aid for additional information regarding guidelines and administration., Routine Given 07/01/2017 1:00 PM EDT 20 mLs documented in this encounter Care Teams Gas Blender Relationship Specialty Start Date End Date Poly Copeland MD [address] [place] [address] PCP - General 09/15/10 documented as of this encounter
--- OUTSIDE RECORDS SUMMARY | 2024-09-11 10:57 | XMS_ITS | Encounter Summary ---
Author Organization [facility] Address [facility] [place] [address] Care Team Providers Care Field Case Manager Name Role Phone Poly Copeland MD Primary Care Provider [phone] Reason for Visit * Reason Comments Chemotherapy FOLFOX, Cycle 8, Day 1 * Treatment/Therapy Plan Authorization (Routine) - Closed Specialty Diagnoses / Procedures Referred By Contac t Referred To Contact Diagnoses Malignant neoplasm of ascending colon Raffi Del Toro MD [facility] [place] [address] Referral ID Status Reason Start Date Expiration Date Visits Re quested Visits Authorized [id number] Closed 03/04/2017 03/04/2018 1 1 Encounter Details Date Type Department Care Team (Late st Contact Info) Description 07/27/2017 8:00 AM EDT Infusion Hematology Oncology at [address] [phone] Malignant neoplasm of ascending colon [...] Sign Reading Time Taken Comments Blood Pressure 134/61 07/27/2017 8:07 AM EDT Pulse 79 07/27/2017 8:07 AM EDT Temperature 36.8 ??C (98.2 ??F) 07/27/2017 8:07 AM ED T Respiratory Rate 20 07/27/2017 8:07 AM EDT Oxygen Saturation 98% 07/27/2017 8:07 AM EDT Inhaled Oxygen Concentration - - Weight 97.3 kg (214 lb 8 oz) 07/27/2017 8:07 AM EDT Height 162 cm (5' 3.78) 07/27/2017 8:07 AM EDT copied Body Mass Index 37.07 07/27/2017 8:07 AM EDT documented in this encounter Progress Notes * Naila Ayala RN - 07/27/2017 8:00 AM EDT INFUSION THERAPY ADMINISTRATION NOTES DIAGNOSIS: Colon cancer CYCLE #8, Day 1 REASON FOR VISIT: FOLFOX infusion and initiation of continunous home 5FU infusion via CADD pump provided by [employer] FRANSISCA Mendoza offers no complaints. OBJECTIVE LAB DATA: WNL for today's infusion Pre administration: Chemotherapy orders independently verified for drug name, route, and dosage per patient's height, weight and BSA by Naila Ayala RN and On-site phaarmacist. At time of administration Patient identity verified using patient's name and date of at the chair/bedside by double RN check just prior to initiating the patient's home infusion chemotherapy via CADD pump provided by [employer]. Fluorouracil 3,762 mg over 46 hours, IV via CADD pump. Amount infused verified by double RN check after 15 minutes and appropriate amount had infused. REACTIONS (DESCRIPTION, TIME, INTERVENTION AND EFFECTIVENESS) none ASSESSMENT Ashley was awake, alert and tolerated treatment well. PLAN Return to clinic on 07/29/17 @ 0930 for disconnect. documented in this encounter Plan of Treatment Not on file documented as of this encounter Procedures Procedure Name Priority Date/Time Associated Diagnosis Comments LAB SCAN 07/27/2017 12:00 AM EDT documented in this encounter Results * SCAN DOC: LAB (07/27/2017 12:00 AM EDT) Narrative 07/27/2017 12:00 AM EDT Ordered by an unspecified [...] 10 mg, Oral, ONCE, 1 dose, On Tue07/27/17 at 0845, Administer prior to chemotherapy, Routine Given 07/27/2017 8:45 AM EDT 10 mg fluorouracil (ADRUCIL) 3,762 mg in sodium chloride 0.9% 138 mL chemo infusion 3,762 mg (1,800 mg/m2/dose ? 2.09 m2 Treatment Plan BSA from Recorded weight), Intravenous, ONCE, 1 dose, On Tue07/27/17 at 1115, Administer over 46 Hours, Warning Vesicant/Irritant Medication To be infused via an ambulatory infusion CADD Legacy Plus pump continuously IV at 3 mL/hr for 46 hours. Pump contains a 46 hour supply and provides a daily dose of 1200 mg/m2/day = 2400 mg/m2 IV over 46 hours with 12 mL of overfill in bag. Given 07/27/2017 11:18 AM EDT 3,762 mg 3 mL/hr fluorouracil (ADRUCIL) chemo injection 627 mg 627 mg (300 mg/m2/dose ? 2.09 m2 Treatment Plan BSA from Recorded weight), Intravenous, ONCE, 1 dose, On Tue07/27/17 at 0945, Administer over 5 Minutes Given 07/27/2017 11:13 AM EDT 627 mg 150.5 mL/hr leucovorin 350 mg in dextrose 5% 535 mL infusion 350 mg, Intravenous, ONCE, 1 dose, On Tue07/27/17 at 0945, Administer over 85 Minutes, May Y-site with OXALIplatin New Bag 07/27/2017 9:23 AM EDT 350 mg 378 mL/hr ondansetron (ZOFRAN) 8 mg in sodium chloride 0.9% 50 mL 8 mg, Intravenous, ONCE, 1 dose, On Tue07/27/17 at 0845, Administer over 15 Minutes New Bag 07/27/2017 8:54 AM EDT 8 mg 216 mL/hr OXALIplatin (ELOXATIN) 115 mg in dextrose 5% 273 mL chemo infusion 115 mg (rounded from 115.4725 mg = 55.25 mg/m2/dose ? 2.09 m2 Treatment Plan BSA from Recorded weight), Intravenous, ONCE, 1 dose, On Tue07/27/17 at 0945, Administer over 85 Minutes, Compatible with dextrose-containing solution only. Warning Vesicant/Irritant Medication New Bag 07/27/2017 9:24 AM EDT 115 mg 193 mL/hr documented in this encounter Care Teams Field Case Manager Relationship Specialty Start Date End Date Poly Copeland MD [address] [place] [address] PCP - General 09/15/10 documented as of this encounter
--- OUTSIDE RECORDS SUMMARY | 2024-09-11 10:57 | XMS_ITS | Encounter Summary ---
Author Organization Formerly [facility] Address [facility] [place] [address] Care Team Providers Care Layout Operator Name Role Phone Poly Copeland MD Primary Care Provider [phone] Encounter Details Date Type Department Care Team (Late st Contact Info) Description 07/22/2017 1:30 PM EDT Office Visit Hematology/Oncology at [address] [phone] Raffi Del Toro MD [facility] [place] [address] Malignant neoplasm of ascending colon Social History [...] Sign Reading Time Taken Comments Blood Pressure 140/55 07/22/2017 1:29 PM EDT Pulse 90 07/22/2017 1:29 PM EDT Temperature 36.4 ??C (97.5 ??F) 07/22/2017 1:29 PM ED T Respiratory Rate 16 07/22/2017 1:29 PM EDT Oxygen Saturation 100% 07/22/2017 1:29 PM EDT Inhaled Oxygen Concentration - - Weight 96.9 kg (213 lb 9.6 oz) 07/22/2017 1:29 P M EDT Height 162 cm (5' 3.78) 07/22/2017 1:29 PM EDT copied Body Mass Index 36.92 07/22/2017 1:29 PM EDT documented in this encounter Progress Notes * Raffi Del Toro MD - 07/22/2017 1:30 PM EDT Subjective: Patient ID: Kelly [...] process. B. 01/23/17 - Right hemicolectomy Path ([facility] review) - CONSULTATION CASE Outside slide(s) labeled [id number], collection date 01/23/2017. Ascending colon, cecum, terminal [...] she is by herself. She is feeling well. She had some jaw pain after the mostrecent cycle of therapy. It resolved after about two days after treatment. Shortly after she ate some ice cream and had what she describes as a spasm with abnormal movement of the mouth. She has had recurrence of headaches but says it is mild, not nearly as bad as it had been in the past. She otherwise tolerated therapy well and is feeling well in general. No symptoms of neuropathy in the hands or feet. She had no nausea and is eating well. Her weight is stable. Her energy level is good. No fevers or signs/symptoms of infection. Soc Hx: , lives alone in [place], [place] Tob - Quit 17 years ago Etoh - None Works [employer] Fam Hx: Father - at age 81, heart disease, ischemic bowel Mother - at 71, colon cancer, COPD Sibs - 3 sisters, 2 in good health, 1 with COPD. No cancer Children - 3 sons, all in good health Review of Systems Constitutional: Negative for activity change, appetite change, fatigue, fever and unexpected weightchange. Respiratory: Positive for shortness of breath (LONG, no change). Cardiovascular: Negative. Gastrointestinal: Negative. Genitourinary: Negative. Musculoskeletal: Negative. Skin: Negative. Neurological: Negative for headaches (none for 6 days). Hematological: Negative. Psychiatric/Behavioral: Negative. Objective: Physical Exam [...] reviewed. Labs: WBC/ANC - 6., Hgb/Hct - 11.6/35.9, Plts - 208,000. BUN/Cr -18/1.06. Lytes and LFTs o/wunremarkable. CEA: 05/27/17 <0.5 04/28/17 1.0 03/18/17 <0.5 [...] adjuvant therapy with Folfox and has received 7 cycles. Cycle 1 was complicated by severe [...] She elected to continue with the chemotherapy. For uncertain reasons, she has not had a headache for 6 days. She will receive cycle 8 on 07/27 and we will see her again in two weeks. documented in this encounter Plan of Treatment Not on file documented as of this encounter Procedures Procedure Name Priority Date/Time Associated Diagnosis Comments LAB SCAN 07/22/2017 12:00 AM EDT documented in this encounter Results * SCAN DOC: LAB (07/22/2017 12:00 AM EDT) Narrative 07/22/2017 12:00 AM EDT Ordered by an unspecified provider. Scanning Provider MEDIA MGR SCAN EXT O RDR/RSLT documented in this encounter Visit Diagnoses Diagnosis Malignant neoplasm of ascending colon documented in this encounter Care Teams Layout Operator Relationship Specialty Start Date End Date Poly Copeland MD [address] [place] [address] PCP - General 09/15/10 documented as of this encounter
--- OUTSIDE RECORDS SUMMARY | 2024-09-11 10:57 | XMS_ITS | Encounter Summary ---
Author Organization [facility]ly [facility] [place] [address] Care Team Providers Care Bait Man Name Role Phone Poly Copeland MD Primary Care Provider [phone] Reason for Visit * Reason Onset Date Comments Labs Only 12/30/2017 Encounter Details Date Type Department Care Team (Late st Contact Info) Description 12/30/2017 Telephone Hematology/Oncology at [address] [phone] Ruth Mcdonald, RN Labs Only Social History Tobacco Use Types Packs/Day Years Used Date Smoking Tobacco: Former Smokeless Tobacco: Never Comments:quite 17 years ago Sex and Gender Information Value Date Recorded Sex Assigned at Not on file Gender Identity Female 10/25/2020 5:11 AM EST Sexual Orientation Not on file documented as of this encounter Miscellaneous Notes * Telephone Encounter - Ruth Mcdonald RN - 12/30/2017 4:25 PM EST Called Pt to let her know her CMP labs were reviewed by Dr Del Toro and look good. Advised to take her entire potassium dose as her potassium was 3.4 today. She will call with any questions. documented in this encounter Plan of Treatment Not on file documented as of this encounter Visit Diagnoses Not on filedocumented in this encounter Care Teams Bait Man Relationship Specialty Start Date End Date Poly Copeland MD [address] [place] [address] PCP - General 09/15/10 documented as of this encounter
--- OUTSIDE RECORDS SUMMARY | 2024-09-11 10:57 | XMS_ITS | Encounter Summary ---
Author Organization [facility] [place] [address] Care Team Providers Care Grades 7 And 8 Teacher Name Role Phone Poly Copeland MD Primary Care Provider [phone] Encounter Details Date Type Department Care Team (Latest Contact Info) Description 03/01/2018 9:05 AM EDT Laboratory Appointment Lab [address] [place] [phone] Malignant neoplasm of right breast in female, [...] Procedure Name Priority Date/Time Associated Diagnosis Comments HEMOGRAM Routine 03/01/2018 8:57 AM EDT Malignant neoplasm of right breast in female, estrogen receptor positive, unspecified site of breast DIFFERENTIAL, AUTOMATED Routine 03/01/2018 8:57 AM EDT Malignant neoplasm of right breast in female, estrogen receptor positive, unspecified site of breast CBC (WITH DIFF) Routine 03/01/2018 8:57 AM EDT Malignant neoplasm of right breast in female, estrogen receptor positive, unspecified site of breast COMPREHENSIVE METABOLIC PANEL Routine 03/01/2018 8:57 AM EDT Malignant neoplasm of right breast in female, estrogen receptor positive, unspecified site of breast documented in this encounter Results * Differential, Automated (03/01/2018 8:57 AM EDT) Neutrophil % 57.1 % [facility] Neutrophil Absolute 4.31 1.70 - 6.10 x10(3)/[facility] Lymph % 31.3 % [facility] Lymphocytes Abs 2.4 0.9 - 3.2 x10(3)/[facility] Monocyte % 8.9 % [facility] Monocyte Abs 0.7 0.3 - 0.9 x10(3)/[facility] Eos % 1.9 % [facility] Eosinophils Abs 0.1 0.0 - 0.4 x10(3)/[facility] Basophil % 0.5 % [facility] Baso Absolute 0.0 0.0 - 0.1 x10(3)/[facility] Immature Gran % 0.30 % [facility] Comment: Immature granulocytes(IG's)percentage and absolute count will include metamyelocytes, myelocytes, and promyelocytes. Blood smears from CBCs yielding IG's will be scanned manually for concordance. If this scan disagrees with the automated IG or if promyelocytes are noted, a manual differential will be performed. Immature Gran Absolute 0.02 0.00 - 0.04 x10(3)/[facility] Blood specimen (specimen) 03/01/2018 8:57 AM EDT 03/01/2018 9:01 AM EDT Narrative Resulting Agency Comment Spec In Lab Samantha Mayen MD HEMATOLOGY ORDERABL ES [facility] [place] [address] * (ABNORMAL) Hemogram (03/01/2018 8:57 AM EDT) White Blood Cell 7.5 4.0 - 9.5 x10(3)/mc L [facility] Red Blood Cell 4.78 4.00 - 5.21 x10(6)/mc L [facility] Hemoglobin 13.7 11.7 - 15.5 gm/dL [facility] Hematocrit 43.0 35.7 - 45.8 % [facility] Mean Cell Volume 90.0 82.6 - 94.4 fL [facility] Mean Cell Hemoglobin 28.7 27.1 - 32.0 pg [facility] Mean Cell Hemoglobin Concentration 31.9 31.7 - 35.0 gm/dL [facility] Platelet 207 145 - 357 x10(3)/ L [facility] RDW Standard Deviation 46.6(H) 37.0 - 46.0 [facility] RDW coefficient of variation 14.1 11.5 - 14.1 % [facility] Mean Platelet Volume 9.5 7.6 - 12.9 [facility] NRBC% auto 0.0 % [facility] NRBC Absolute 0.000 0.000 - 0.000 x10(3)/[facility] Blood specimen (specimen) 03/01/2018 8:57 AM EDT 03/01/2018 9:01 AM EDT Narrative Resulting Agency Comment Spec In Lab Samantha Mayen MD HEMATOLOGY ORDERABL ES [facility] [place] [address] * (ABNORMAL) Comprehensive metabolic panel (non-fasting) (03/01/2018 8:57 AM EDT) Glucose 105 65 - 199 mg/dL [facility] Comment:Diabetes: >=200 mg/d L plus symptoms Blood Urea Nitrogen 16 8 - 18 mg/dL [facility] Creatinine 0.96 0.70 - 1.20 mg/dL [facility] Sodium 143 135 - 145 mmol/L [facility] Potassium 4.4 3.5 - 5.0 mmol/L [facility] Comment: Please note: ??Patients with WBC >100,000 may have falsely elevated Potassium levels. ??For accurate Potassium quantification in these patients send serum separator tube (gold top) for subsequent determinations. ??Contact the Clinical Chemistry Laboratory if there are any questions. Chloride 99 98 - 107 mmol/L [facility] Carbon Dioxide 30 22 - 31 mmol/L [facility] Anion Gap 14 5 - 15 mmol/L [facility] Calcium 9.7 8.5 - 10.5 mg/dL [facility] Protein, Total 7.4 6.1 - 8.0 gm/dL [facility] Albumin 4.5 3.2 - 5.2 gm/dL [facility] Aspartate Aminotransferase 17 0 - 30 unit/L [facility] Alanine Aminotransferase 14 0 - 30 unit/L [facility] Alkaline Phosphatase 72 40 - 104 unit/L [facility] Bilirubin, Total 0.3 0.2 - 1.3 mg/dL [facility] Est Glomerular Filtration Rate 57(L) >=60 [facility] Comment: The reported eGFR should be multiplied by 1.2 for patients. The MDRD is not an appropriate measure of renal function for patients with body mass extremes or in patients with acute kidney failure. http://[employer]/DHnkdep http://[employer]/DHMCnkf Blood specimen (specimen) 03/01/2018 8:57 AM EDT 03/01/2018 9:01 AM EDT Narrative Resulting Agency Comment Spec In Lab Samantha Mayen MD CHEMISTRY ORDERABLE S [facility] [place] [address] documented in this encounter Visit Diagnoses Diagnosis Malignant neoplasm of right breast in female, estrogen receptor positive, unspecified site of breast documented in this encounter Care Teams Grades 7 And 8 Teacher Relationship Specialty Start Date End Date Dobbertin, Poly, MD [address] [place] [address] PCP - General 09/15/10 documented as of this encounter
--- OUTSIDE RECORDS SUMMARY | 2024-09-11 10:57 | XMS_ITS | Encounter Summary ---
Author Organization [facility] [place] [address] Care Team Providers Care Product Safety Officer Name Role Phone Poly Copeland MD Primary Care Provider [phone] Reason for Visit * Reason Comments Chemotherapy CADD pump disconnect and port flush Encounter Details Date Type Department Care Team (Late st Contact Info) Description 07/15/2017 2:00 PM EDT Infusion Hematology Oncology at [address] [phone] Malignant neoplasm of ascending colon Social History Tobacco Use Types Packs/Day Years Used Date Smoking Tobacco: Former Smokeless Tobacco: Never Comments:quite 17 years ago Sex and Gender Information Value Date Recorded Sex Assigned at Not on file Gender Identity Female 10/25/2020 5:11 AM EST Sexual Orientation Not on file documented as of this encounter Progress Notes * Alise Fatima RN - 07/15/2017 2:00 PM EDT INFUSION THERAPY ADMINISTRATION NOTES DIAGNOSIS: 1. Malignant neoplasm of ascending colon Home Infusion: Pump Disconnect heparin, porcine 100 unit/mL flush 500 Units sodium chloride 0.9 % flush 5-20 mL REASON FOR VISIT: Discontinue 5FU home infusion and deaccess mediport SUBJECTIVE Jhonathancarlos Strickland denies any complaints. OBJECTIVE: VITAL SIGNS: There were no vitals taken for this visit. REACTIONS (DESCRIPTION, TIME, INTERVENTION AND EFFECTIVENESS) none ASSESSMENT Kelly Strickland was awake, alert and he tolerated treatment well. PLAN Return to clinic per routine. documented in this encounter Plan of Treatment Not on file documented as of this encounter Visit Diagnoses Diagnosis Malignant neoplasm of ascending colon documented in this encounter Care Teams Product Safety Officer Relationship Specialty Start Date End Date Poly Copeland MD [address] [facility] [facility] [place] [address] PCP - General 09/15/10 documented as of this encounter
--- OUTSIDE RECORDS SUMMARY | 2024-09-11 10:57 | XMS_ITS | Encounter Summary ---
Author Organization [facility] Address [facility] [place] [address] Care Team Providers Care Service Center Coordinator Name Role Phone Poly Copeland MD Primary Care Provider [phone] Encounter Details Date Type Department Care Team (Late st Contact Info) Description 07/08/2017 11:30 AM EDT Office Visit Hematology/Oncology at [address] [phone] Raffi Del Toro MD [facility] [place] [address] Malignant neoplasm of ascending colon Social History [...] Sign Reading Time Taken Comments Blood Pressure 124/60 07/08/2017 11:26 AM EDT Pulse 86 07/08/2017 11:26 AM EDT Temperature 36.7 ??C (98.1 ??F) 07/08/2017 11:26 AM E DT Respiratory Rate 16 07/08/2017 11:26 AM EDT Oxygen Saturation 98% 07/08/2017 11:26 AM EDT Inhaled Oxygen Concentration - - Weight 96.6 kg (213 lb) 07/08/2017 11:26 AM EDT Height 162 cm (5' 3.78) 07/08/2017 11:26 AM EDT Body Mass Index 36.81 07/08/2017 11:26 AM EDT documented in this encounter Progress Notes * Raffi Del Toro MD - 07/08/2017 11:30 AM EDT Subjective: Patient ID: Kelly Strickland [...] B. 01/23/17 - Right hemicolectomy Path ([facility] review) - CONSULTATION CASE Outside slide(s) labeled [id number], collection date 01/23/2017. Ascending colon, cecum, terminal [...] Adjuvant therapy with Folfox started 03/30/17, s/p 6 cycles Oxaliplatin dose reduced for cycle 2 [...] she is by herself. She is feeling well and is in very good spirits because she has not had a headache for 6 days. She has not been taking the naproxen or the amytriptyline. Sheis tolerating the chemotherapy fairly well. She did have jaw pain which lasted about a week. She did not let it affect her eating. On days 4 and 5 she was very fatigued. She says with the most recentcycle she decided not to fight it and just rested. The symptoms improved after that. No symptoms ofneuropathy in her hands and feet. Soc Hx: , lives alone in [place], [place] Tob - Quit 17 years ago Etoh - None Works [employer] Fam Hx: Father - at age [...] is normal. Vitals reviewed. Labs: WBC/ANC - 8., Hgb/Hct - 10.8/33.9, Plts - 199,000. BUN/Cr -20/1.06. Alb - 3.1. Lytes and LFTs o/w unremarkable. CEA: 05/27/17 <0.5 04/28/17 1.0 03/18/17 <0.5 Assessment and Plan: Ms. Strickland is a 77 yo female diagnosed with adenocarcinoma of the ascending colon in early 02/07 after presenting with abdominal pain, nausea and vomiting. On 01/23/17 she underwent a right hemicolectomy. The pathology report is above, high grade adenocarcinoma with 1/14 LN's involved, margin negative. CT shows no evidence of metastatic disease. We discussed the diagnosis, prognosis and treatment options today. She was told that, given the LN [...] adjuvant therapy with Folfox and has received 6 cycles. Cycle 1 was complicated by severe [...] for 6 days. She will receive cycle 7 on 07/13 and we will see her again in two weeks. documented in this encounter Plan of Treatment Not on file documented as of this encounter Procedures Procedure Name Priority Date/Time Associated Diagnosis Comments LAB SCAN 07/08/2017 12:00 AM EDT documented in this encounter Results * SCAN DOC: LAB (07/08/2017 12:00 AM EDT) Narrative 07/08/2017 12:00 AM EDT Ordered by an unspecified provider. Scanning Provider MEDIA MGR SCAN EXT O RDR/RSLT documented in this encounter Visit Diagnoses Diagnosis Malignant neoplasm of ascending colon documented in this encounter Care Teams Service Center Coordinator Relationship Specialty Start Date End Date Poly Copeland MD [address] [place] [address] PCP - General 09/15/10 documented as of this encounter
--- OUTSIDE RECORDS SUMMARY | 2024-09-11 10:57 | XMS_ITS | Encounter Summary ---
Author Organization [facility] Address [facility] [place] [address] Care Team Providers Care Cpas Name Role Phone Poly Copeland MD Primary Care Provider [phone] Encounter Details Date Type Department Care Team (Late st Contact Info) Description 02/03/2018 Notes [place] [phone] Sheryl Au MSW Social History Tobacco Use Types Packs/Day Years Used Date Smoking Tobacco: Former Smokeless Tobacco: Never Comments:quite 17 years ago Sex and Gender Information Value Date Recorded Sex Assigned at Not on file Gender Identity Female 10/25/2020 5:11 AM EST Sexual Orientation Not on file documented as of this encounter Progress Notes * Sheryl Au MSW - 02/03/2018 12:11 PM EDT [facility] contacted pt after Dr. Galvan informed her that her breast biopsy results indicated she has right breast, IDC/DCIS. 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 Pt states she is coping well with her diagnosis and has support from her family. I gave pt information about the Pt Support Adore and she declined having someone attend her surgical consult to take minutes. Pt was given instructions on how to sign-up for My . I addressed pt's questions and encouraged her to contact me withany additional concerns. P- [facility] will continue to assess and address pt's psychosocial needs. documented in this encounter Plan of Treatment Not on file documented as of this encounter Visit Diagnoses Not on filedocumented in this encounter Care Teams Cpas Relationship Specialty Start Date End Date Poly Copeland MD [address] [place] [address] [address] [facility] [address] [place] [address] PCP - General 09/15/10 documented as of this encounter
--- OUTSIDE RECORDS SUMMARY | 2024-09-11 10:57 | XMS_ITS | Encounter Summary ---
Author Organization [facility] [place] [address] Care Team Providers Care Hospital Pharmacy Technician Name Role Phone Poly Copeland MD Primary Care Provider [phone] Reason for Visit * Consultation (Routine) - Closed Specialty Diagnoses / Procedures Referred By Contgail t Referred To Contact Hematology and Oncology Diagnoses Abnormal findings on imaging test Poly Copeland MD [address] [place] [address] [facility] [address] [place] [address] Referral ID Status Reason Start Date Expiration Date Visits Re quested Visits Authorized [id number] Closed 01/25/2018 01/25/2019 1 1 Encounter Details Date Type Department Care Team (Late st Contact Info) Description 01/30/2018 1:32 PM EDT - 01/30/2018 2:25 PM EDT Hospital En[place] [address] Dulce Zavala MD [facility] [place] [address] Abnormal mammogram Discharge Disposition: Home Social History [...] Name Priority Date/Time Associated Diagnosis Comments MAMMO BREAST US LIMITED RIGHT Routine 01/30/2018 2:10 PM EDT Abnormal mammogram documented in this encounter Results * US Breast Limited Right (01/30/2018 2:10 PM EDT) Anatomical Region Laterality Modality Breast Right Mammography Addenda Addendum by Anabell Muñoz MD on 02/01/2018 7:38 AM EDT --------ADDENDUM #1-------- Please note: Under EXAMINATION the diagnostic mammogram without computer aided detection was performed of the RIGHT breast, not the left breast. --------ORIGINAL REPORT -------- EXAMINATION: US BREAST LIMITED RIGHT, MAMMO DIAGNOSTIC WITHOUT CAD LEFT CLINICAL HISTORY: Abnormal mammogram TECHNIQUE: Magnification CC and magnification true lateral views were obtained of the right upper outer quadrant. High-resolution ultrasound was performed of the right breast 10:00 radian 9 cm from the nipple. COMPARISON: This study was compared with prior images. FINDINGS: Ultrasound: There is a suspicious irregular solid mass in the right breast 10:00 radian 9 cm from the nipple measuring 0.7 cm in diameter, including the fibrotic rim. The mammogram from the outside facility suggested new microcalcifications therefore magnification CC and magnification true lateral views were obtained. This imaging confirms new suspicious area regular fine linear pleomorphic calcifications spanning 2.5 cm adjacent to the suspicious microlobulated spiculated mass. IMPRESSION: Highly suspicious 0.7 cm mass associated with 2.5 cm area of fine linear pleomorphic calcifications right breast 10:00 radian 9 cm from the nipple. Ultrasound-guided core biopsy is recommended. This is performed and dictated separately on the day of the patient's visit. BI-RADS Category 5: Highly Suggestive of Malignancy - Appropriate Action Should Be Taken Impressions 01/30/2018 3:26 PM EDT Highly suspicious 0.7 cm mass associated with 2.5 cm area of fine linear pleomorphic calcifications right breast 10:00 radian 9 cm from the nipple. Ultrasound-guided core biopsy is recommended. This is performed and dictated separately on the day of the patient's visit. BI-RADS Category 5: Highly Suggestive of Malignancy - Appropriate Action Should Be Taken Narrative 01/30/2018 3:26 PM EDT EXAMINATION: US BREAST LIMITED RIGHT, MAMMO DIAGNOSTIC WITHOUT CAD LEFT CLINICAL HISTORY: Abnormal mammogram TECHNIQUE: Magnification CC and magnification true lateral views were obtained of the right upper outer quadrant. High-resolution ultrasound was performed of the right breast 10:00 radian 9 cm from the nipple. COMPARISON: This study was compared with prior images. FINDINGS: Ultrasound: There is a suspicious irregular solid mass in the right breast 10:00 radian 9 cm from the nipple measuring 0.7 cm in diameter, including the fibrotic rim. The mammogram from the outside facility suggested new microcalcifications therefore magnification CC and magnification true lateral views were obtained. This imaging confirms new suspicious area regular fine linear pleomorphic calcifications spanning 2.5 cm adjacent to the suspicious microlobulated spiculated mass. Dulce Zavala MD IMG MAMMO ORDERABLES documented in this encounter Visit Diagnoses Diagnosis Abnormal mammogram Abnormal mammogram, unspecified documented in this encounter Care Teams Hospital Pharmacy Technician Relationship Specialty Start Date End Date Poly Copeland MD [address] [place] [address] PCP - General 09/15/10 documented as of this encounter
--- OUTSIDE RECORDS SUMMARY | 2024-09-11 10:57 | XMS_ITS | Encounter Summary ---
[place] [address] Care Team Providers Care Boiler Blower Name Role Phone Poly Copeland MD Primary Care Provider [phone] Encounter Details Date Type Department Care Team (Late st Contact Info) Description 03/02/2018 Orders Only [place] [phone] Elizabeth Sharif, RN Social History Tobacco Use Types Packs/Day [...] on filedocumented in this encounter Care Teams Boiler Blower Relationship Specialty Start Date End Date Poly Copeland MD [address] [place] [address] [address] [place], [place] [address] PCP - General 09/15/10 documented as of this encounter
--- OUTSIDE RECORDS SUMMARY | 2024-09-11 10:57 | XMS_ITS | Encounter Summary ---
Author Organization [facility], [facility] Address [facility] [place] [address] Care Team Providers Care Industrial Technology Education Teacher Name Role Phone Poly Copeland MD Primary Care Provider [phone] Encounter Details Date Type Department Care Team (Late st Contact Info) Description 12/30/2017 1:30 PM EST Office Visit Hematology/Oncology at [address] [phone] Raffi Del Toro MD [facility] [place] [address] Malignant neoplasm of ascending colon; Neuropathic pain Social History Tobacco Use Types Packs/Day Years Used Date Smoking Tobacco: Former Smokeless Tobacco: Never Comments:quite 17 years ago Sex and Gender Information Value Date Recorded Sex Assigned at Not on file Gender Identity Female 10/25/2020 5:11 AM EST Sexual Orientation Not on file documented as of this encounter Last Filed Vital Signs Vital Sign Reading Time Taken Comments Blood Pressure 152/84 12/30/2017 1:29 PM EST Pulse 98 12/30/2017 1:29 PM EST Temperature 36.3 ??C (97.3 ??F) 12/30/2017 1:29 PM ES T Respiratory Rate 18 12/30/2017 1:29 PM EST Oxygen Saturation 99% 12/30/2017 1:29 PM EST Inhaled Oxygen Concentration - - Weight 97.1 kg (214 lb) 12/30/2017 1:29 PM EST Height 162 cm (5' 3.78) 12/30/2017 1:29 PM EST copied Body Mass Index 36.99 12/30/2017 1:29 PM EST documented in this encounter Progress Notes * Raffi Del Toro MD - 12/30/2017 1:30 PM EST Subjective: Patient ID: Kelly [...] process. B. 01/23/17 - Right hemicolectomy Path ([facility] [place] - CONSULTATION CASE Outside slide(s) labeled [id number], collection date 01/23/2017. Ascending colon, cecum, terminal [...] otherwise negative. She was seen by Dr. Abmrose in Neuro-Oncology on 05/10. It was felt possible that the chemotherapy was the initial trigger for the headache and that she then developed a medication overuse headache due to daily NSAID use. She was given a prescription for amytriptyline and naproxen. The dose of amytriptyline has been increased to 50 mg per day. On presentation today, she is by herself. She feels very well. She just got back from 10 days in [place]. The weather was wonderful and she had a great time. Her appetite is good and her weight is stable. Her energy level is good. No areas of pain. She does have persistent numbness and tingling in her fingers. It varies from day to day, in particular in terms of tingling. The numbness is there all of the time. Her feet don't bother her at all. She does still have headaches pretty frequently, a couple of times per week. These tend to be frontal and have a throbbing character. No aura, photosensitivity or associated visual change. Tylenol or laying down with a cool cloth help. No fevers or signs/symptoms of infection. Her bowels are regular with no melena or BRBPR. Soc Hx: , lives alone in [place], [place] Tob - Quit 17 years ago Etoh - None Works [employer] Fam Hx: Father - at age 81, [...] is normal. Vitals reviewed. Labs: WBC/ANC - 6.05/4390, Hgb/Hct - 12.8/40.4, Plts - 191,000. BUN/Cr - 15/1.08. K - 3.4, Alb - 3.3Lytes and LFTs o/w unremarkable. CEA: 12/30/17 pending 09/08/17 0.8 05/27/17 <0.5 04/28/17 1.0 03/18/17 [...] metastatic disease. Clinically, she is doing well. For the symptoms of neuropathy, we are going to try gabapentin, starting at 100 mg per day and increasing if tolerated over the course of a week to 100 mg tid. If that does not help, I asked her to call and we will consider increasing further. I will plan to see her back in three months with labs evelyn CT scan. (F/u plan - CT scans will be done every 6 months for the first two years, then annually out to 5 years, unless needed sooner based on clinical assessment. She is already scheduled for a colonoscopy around 04/10, about a year from her surgery). documented in this encounter Plan of Treatment Not on file documented as of this encounter Procedures Procedure Name Priority Date/Time Associated Diagnosis Comments LAB SCAN 12/30/2017 12:00 AM EST LAB SCAN 12/28/2017 12:00 AM EST documented in this encounter Results * SCAN DOC: LAB (12/30/2017 12:00 AM EST) Narrative 12/30/2017 12:00 AM EST Ordered by an unspecified provider. Scanning Provider MEDIA MGR SCAN EXT O RDR/RSLT * SCAN DOC: LAB (12/28/2017 12:00 AM EST) Narrative 12/28/2017 12:00 AM EST Ordered by an unspecified provider. Scanning Provider MEDIA MGR SCAN EXT O RDR/RSLT documented in this encounter Visit Diagnoses Diagnosis Malignant neoplasm of ascending colon Neuropathic pain Neuralgia, neuritis, and radiculitis, unspecified documented in this encounter Care Teams Industrial Technology Education Teacher Relationship Specialty Start Date End Date Poly Copeland MD [address] [place] [address] PCP - General 09/15/10 documented as of this encounter
--- OUTSIDE RECORDS SUMMARY | 2024-09-11 10:57 | XMS_ITS | Encounter Summary ---
Author Organization [facility] Address [facility] [place] [address] Care Team Providers Care Material Coordinator Name Role Phone Poly Copeland MD Primary Care Provider [phone] Reason for Visit * Reason Comments Chemotherapy Cycle 7 Day 1 Folfox * Treatment/Therapy Plan Authorization (Routine) - Closed Specialty Diagnoses / Procedures Referred By Contac t Referred To Contact Diagnoses Malignant neoplasm of ascending colon Raffi Del Toro MD [facility] [place] [address] Referral ID Status Reason Start Date Expiration Date Visits Re quested Visits Authorized [id number] Closed 03/04/2017 03/04/2018 1 1 Encounter Details Date Type Department Care Team (Late st Contact Info) Description 07/13/2017 10:00 AM EDT Infusion Hematology Oncology at [address] [phone] Malignant neoplasm of ascending colon [...] Sign Reading Time Taken Comments Blood Pressure 154/56 07/13/2017 9:47 AM EDT Pulse 77 07/13/2017 9:47 AM EDT Temperature 36.6 ??C (97.9 ??F) 07/13/2017 9:47 AM ED T Respiratory Rate 18 07/13/2017 9:47 AM EDT Oxygen Saturation 100% 07/13/2017 9:47 AM EDT Inhaled Oxygen Concentration - - Weight 97.1 kg (214 lb) 07/13/2017 9:47 AM EDT Height 162 cm (5' 3.78) 07/13/2017 9:47 AM EDT copied Body Mass Index 36.99 07/13/2017 9:47 AM EDT documented in this encounter Progress Notes * Alise Fatima RN - 07/13/2017 10:00 AM EDT INFUSION THERAPY ADMINISTRATION NOTES DIAGNOSIS: Colon cancer CYCLE # 7 Day 1 REASON FOR VISIT: FOLFOX infusion and initiation of continunous home 5FU infusion via CADD pump provided by [employer] FRANSISCA Mendoza offers no complaints. OBJECTIVE LAB DATA: WBC 4.34 Hgb11.1,Hct 35.4, ANC 1.83, plt 193 K 4.2 Creatinine 1.12 Pre administration: Chemotherapy orders independently verified for drug name, route, and dosage per patient's height, weight and BSA by [facility] At time of administration Patient identity verified using patient's name and date of at the chair/bedside by double RN check just prior to initiating the patient's home infusion chemotherapy via CADD pump provided by [employer]. Fluorouracil 3,762 mg over 46 hours, IV via CADD pump. Amount infused verified by double RN check after 15 minutes and appropriate amount had infused. REACTIONS (DESCRIPTION, TIME, INTERVENTION AND EFFECTIVENESS) none ASSESSMENT Ashley was awake, alert and tolerated treatment well. PLAN Return to clinic Tuesday for disconnect. documented in this encounter Plan of Treatment Not on file documented as of this encounter Procedures Procedure Name Priority Date/Time Associated Diagnosis Comments LAB SCAN 07/13/2017 12:00 AM EDT documented in this encounter Results * SCAN DOC: LAB (07/13/2017 12:00 AM EDT) Narrative 07/13/2017 12:00 AM EDT Ordered by an unspecified provider. Scanning Provider MEDIA MGR SCAN EXT O RDR/RSLT documented in this encounter Visit Diagnoses Diagnosis Malignant neoplasm of ascending colon documented in this encounter Administered Medications Inactive Administered Medications - up to 3 most recent administrations Medication Order MAR Action Action Date Dose Rate Site alteplase (CATHFLO) injection 2 mg 2 mg, Intravenous, ONCE PRN, Starting on Tue07/13/17 at 1006, Until Tue07/13/17 at 1651, Line Occlusion, Refer to Cathflo Activase (Alteplase) Administration policy for additional information regarding guidelines and administration., Routine Given 07/13/2017 10:19 AM EDT 2 mg dexamethasone (DECADRON) tablet 10 mg 10 mg, Oral, ONCE, 1 dose, On Tue07/13/17 at 1130, Administer prior to chemotherapy, Routine Given 07/13/2017 11:29 AM EDT 10 mg fluorouracil (ADRUCIL) 3,762 mg in sodium chloride 0.9% 138 mL chemo infusion 3,762 mg (1,800 mg/m2/dose ? 2.09 m2 Treatment Plan BSA from Recorded weight), Intravenous, ONCE, 1 dose, On Tue07/13/17 at 1400, Administer over 46 Hours, Warning Vesicant/Irritant Medication To be infused via an ambulatory infusion CADD Legacy Plus pump continuously IV at 3 mL/hr for 46 hours. Pump contains a 46 hour supply and provides a daily dose of 1200 mg/m2/day = 2400 mg/m2 IV over 46 hours with 12 mL of overfill in bag. Given 07/13/2017 2:31 PM EDT 3,762 mg 3 mL/hr fluorouracil (ADRUCIL) chemo injection 627 mg 627 mg (300 mg/m2/dose ? 2.09 m2 Treatment Plan BSA from Recorded weight), Intravenous, ONCE, 1 dose, On Tue07/13/17 at 1230, Administer over 5 Minutes Given 07/13/2017 2:22 PM EDT 627 mg 150.5 mL/hr leucovorin 350 mg in dextrose 5% 535 mL infusion 350 mg, Intravenous, ONCE, 1 dose, On Tue07/13/17 at 1230, Administer over 85 Minutes, May Y-site with OXALIplatin New Bag 07/13/2017 12:29 PM EDT 350 mg 378 mL/hr ondansetron (ZOFRAN) 8 mg in sodium chloride 0.9% 50 mL 8 mg, Intravenous, ONCE, 1 dose, On Tue07/13/17 at 1130, Administer over 15 Minutes New Bag 07/13/2017 11:57 AM EDT 8 mg 216 mL/hr OXALIplatin (ELOXATIN) 115 mg in dextrose 5% 273 mL chemo infusion 115 mg (rounded from 115.4725 mg = 55.25 mg/m2/dose ? 2.09 m2 Treatment Plan BSA from Recorded weight), Intravenous, ONCE, 1 dose, On Tue07/13/17 at 1230, Administer over 85 Minutes, Compatible with dextrose-containing solution only. Warning Vesicant/Irritant Medication New Bag 07/13/2017 12:30 PM EDT 115 mg 193 mL/hr documented in this encounter Care Teams Material Coordinator Relationship Specialty Start Date End Date Poly Copeland MD [address] [facility] [address] [place] [address] PCP - General 09/15/10 documented as of this encounter
--- OUTSIDE RECORDS SUMMARY | 2024-09-11 10:57 | XMS_ITS | Encounter Summary ---
Author Organization [facility] Address [facility] [place] [address] Care Team Providers Care Food Production Associate Name Role Phone Ploy Copeland MD Primary Care Provider [phone] Encounter Details Date Type Department Care Team (Late st Contact Info) Description 01/30/2018 [place] [address] Anabell Muñoz MD [facility] [place] [address] Social History Tobacco Use Types Packs/Day Years Used Date Smoking Tobacco: Former Smokeless Tobacco: Never Comments:quite 17 years ago Sex and Gender Information Value Date Recorded Sex Assigned at Not on file Gender Identity Female 10/25/2020 5:11 AM EST Sexual Orientation Not on file documented as of this encounter Progress Notes * Anabell Muñoz MD - 01/30/2018 2:35 PM EDT Pre-procedure note for needle breast biopsies performed in radiology. Procedure date: Today Procedure type: right breast ultrasound guided biopsy Allergies: Sulfa (sulfonamide antibiotics) Medications: Current Outpatient Prescriptions: ??? gabapentin (NEURONTIN) 100 mg Capsule, Take 1 capsule by mouth 3 times daily., Disp: 90 capsule, Rfl: 5 ??? potassium chloride (K-DUR/KLOR-CON) 20 mEq Tab Sust.Rel. Particle/Crystal, Take 1 tablet by mouth daily., Disp: 30 tablet, Rfl: 3 ??? aspirin 81 mg Tablet, Delayed Release (E.C.), Take 81 mg by mouth daily., Disp: , Rfl: ??? amitriptyline (ELAVIL) 25 mg Tablet, Take 1 tablet by mouth nightly., Disp: 30 tablet, Rfl: 0 ??? naproxen sodium (ANAPROX) 550 mg Tablet, Take 1 tablet by mouth 2 times daily (with meals). After one week, may decrease to PRN, Disp: 60 tablet, Rfl: 12 ??? acetaminophen (TYLENOL) 500 mg Tablet, Take 1,000 mg by mouth every 6 hours as needed for Pain., Disp: , Rfl: ??? cyanocobalamin 1,000 mcg Tablet, Take 1,000 mcg by mouth daily., Disp: , Rfl: ??? multivitamin (THERAGRAN) Tablet, Take 1 tablet by mouth daily., Disp: , Rfl: ??? UMECLIDINIUM BROMIDE (INCRUSE ELLIPTA INHL), Inhale into the lungs daily., Disp: , Rfl: ??? omeprazole (PRILOSEC) 20 mg Capsule, Delayed Release(E.C.), Take 20 mg by mouth daily., Disp: ,Rfl: ??? hydroCHLOROthiazide (HYDRODIURIL) 25 mg Tablet, Take 25 mg by mouth daily., Disp: , Rfl: ??? solifenacin (VESICARE) 5 mg tablet, Take 5 mg by mouth daily., Disp: , Rfl: ??? fluticasone-salmeterol (ADVAIR) 250-50 mcg/dose diskus inhaler, Inhale 1 puff into the lungs 2 times daily., Disp: , Rfl: ??? Cholecalciferol, Vitamin D3, (VITAMIN D) 1,000 unit Cap, , Disp: , Rfl: ??? Calcium Carbonate (TUMS) 300 mg (750 mg) Chew, , Disp: , Rfl: Anticoagulation status: low dose aspirin stopped on: N/A Imaging reviewed and procedural plan approved by Dr. ANABELL MUÑOZ MD documented in this encounter Plan of Treatment Not on file documented as of this encounter Visit Diagnoses Not on filedocumented in this encounter Care Teams Food Production Associate Relationship Specialty Start Date End Date Poly Copeland MD [address] [place] [address] PCP - General 09/15/10 documented as of this encounter
--- OUTSIDE RECORDS SUMMARY | 2024-09-11 10:57 | XMS_ITS | Encounter Summary ---
Author Organization [facility] [place] [address] Care Team Providers Care Wool Sacker Name Role Phone Poly Copeland MD Primary Care Provider [phone] Reason for Referral * Home Health Care (Routine) - Specialty Diagnoses / Procedures Referred By Contac t Referred To Contact Home Health Agency Diagnoses Malignant neoplasm of right breast in female, estrogen receptor positive, unspecified site of breast Samantha Mayen MD [facility] [place] [address] Referral ID Status Reason Start Date Expiration Date V isits Requested Visits Authorized [id number] Continuity of Care 03/13/2018 09/09/2018 1 1 Encounter Details Date Type Department Care Team (Late st Contact Info) Description 03/13/2018 Orders [place] [address] Samantha Mayen MD [facility] [place] [address] Malignant neoplasm of right breast in female, [...] Associated Diagnoses Orde r Schedule Referral to Home Health - Clinic Use Outpatient Referral Routine Malignant neoplasm of right breast in female, estrogen receptor positive, unspecified site of breast Ordered: 03/13/2018 documented as of this encounter Visit Diagnoses Diagnosis Malignant neoplasm of right breast in female, estrogen receptor positive, unspecified site of breast documented in this encounter Care Teams Wool Sacker Relationship Specialty Start Date End Date Poly Copeland MD [address] [facility] 1 [place] [address] PCP - General 09/15/10 documented as of this encounter
--- OUTSIDE RECORDS SUMMARY | 2024-09-11 10:57 | XMS_ITS | Encounter Summary ---
Author Organization [facility] [place] [address] Care Team Providers Care Installation & Maintenance Executive Name Role Phone Poly Copeland MD Primary Care Provider Encounter Details Date Type Department Care Team (Late st Contact Info) Description 03/13/2018 Notes Only Hematology and Oncology at [facility] [place] [phone] Giana Mitchell, RN Social History Tobacco Use Types Packs/Day Years Used Date Smoking Tobacco: Former Smokeless Tobacco: Never Comments:quite 17 years ago Sex and Gender Information Value Date Recorded Sex Assigned at Not on file Gender Identity Female 10/25/2020 5:11 AM EST Sexual Orientation Not on file documented as of this encounter Progress Notes * Giana Mitchell RN - 03/13/2018 3:46 PM EDT 03/13/18 Referral to: [facility], [address] [facility] [address] REFERRAL FORM 24 hour Referral *Fax (Office Hours M-F 8:00-4:3 PM): [phone] Referral Date03/13/2018 New Admission: Re-Admission: Resumption of Care: PATIENT INFORMATION Last Name: First Name: Kelly Mailing Address: Service Address: City: [facility] Emergency Contact: Phone Number: Contact Phone: : Gender: female Marital Status: REFERRAL INFORMATION Visit to occur within 24 hours of discharge Requested First Visit Date: Home Care: Admit Date: SN: PT: OT: ST: Discharge Date: REFERRAL SOURCE INFORMATION [facility] [address] L Address: [facility] City: [place] State: [place] Zip: [address] Referral Contact:General Surgery Nurses for 1st visit: Samantha Mayen MD Fax: MD whose signature will cover the order(s) for the next 60 days: Phone: Fax: Primary Care Physician: Poly Copeland MD Phone: DIAGNOSES Primary Diagnosis: Surgical Procedures: Date: Date: INSURANCE INFORMATION Medicare#: Eff. Date: Medicaid#: Eff. Date: Commercial Insurance: Group#: Policy#: Phone Number: Fax Number: CLINICAL INFORMATION and HOME CARE ORDERS Medication and Allergies: Attached Send two days supply home with patient Referral Taken By: Signature: *Faxes should be accompanied by a confirmation phone call to insure receipt. Procedure: right mastectomy and sentinel lymph node excision Expected Date: 03/17/18 Home care orders: RN visits initially once a day for post-operative assessment. Home Care Orders: Snf (RN) ?? Inspect incision and drain site daily for signs and symptoms of infection. (Hot, red, swelling, pain, bleeding or drainage noted) ?? Remove original dressing on day 2; no further dressing necessary unless draining. ?? Teach dressing care/changes as appropriate. ?? Do not use any products on incision or drain site unless instructed. ?? Do not submerge the incision for 2 weeks or drain site for 2 weeks after removal. ?? Assess bowel functions: Stool softeners and laxatives are recommended to prevent constipation while using narcotics. ?? Assess bladder function: Urinary retention requires quick assessment, treatment and follow up. Call Doc bonderite operator or Clinic ?? Pain assessment 0-10 scale: Teach narcotic awareness (keep medications locked up, do not discussmedications with people who do not need to know), teach compliance, weaning, side effects and risk factors. ?? Use ibuprofen and acetaminophen alternating- Do not exceed maximum 24 hour dose. ?? Teach comfort measures: rest, ice, warmth, elevation, and positioning. ?? Reinforce drain teaching (i.e. emptying the drain, care of the drain, stripping the tubing and monitoring the output). ?? Avoid repetitious movement of affected extremity while the drain is in. ?? If drain amounts increase, assess activity; curtailing activity of affected extremity may resultin a decrease of drain output. ?? Teach troubleshooting techniques for drain and site care. ?? When the drain output is less than 30 cc's in a 24 hour period for 2 days; call to arrange drainremoval. ?? When the drain has been removed, apply bacitracin dressings to the site to absorb drainage. ?? Assess for and teach about seroma. ?? Teach and reinforce after breast surgery exercises per instruction sheet. ?? Assess nutritional status and encourage the following daily goals. ?? Daily multivitamin ?? 60 grams of protein consumption ?? 64 ounces of hydrating fluids ?? Teach the importance of ambulation, ankle exercises, deep breathing and coughing. Teach self-assessment for infection, pneumonia, deep vein thrombosis and other post-operative complications. documented in this encounter Plan of Treatment Not on file documented as of this encounter Visit Diagnoses Not on filedocumented in this encounter Care Teams Installation & Maintenance Executive Relationship Specialty Start Date End Date Poly Copeland MD [address] [place] [address] PCP - General 09/15/10 documented as of this encounter
--- OUTSIDE RECORDS SUMMARY | 2024-09-11 10:57 | XMS_ITS | Encounter Summary ---
Author Organization [facility] Address [facility] [place] [address] Care Team Providers Care Social Science Analyst Name Role Phone Poly Copeland MD Primary Care Provider [phone] Reason for Visit * Reason Comments IV Medication * Treatment/Therapy Plan Authorization (Routine) - Closed Specialty Diagnoses / Procedures Referred By Contac t Referred To Contact Diagnoses Malignant neoplasm of ascending colon Raffi Del Toro MD [facility] [place] [address] Referral ID Status Reason Start Date Expiration Date Visits Re quested Visits Authorized [id number] Closed 03/04/2017 03/04/2018 1 1 Encounter Details Date Type Department Care Team (Late st Contact Info) Description 07/29/2017 11:30 AM EDT Infusion Hematology Oncology at [address] [phone] Malignant neoplasm of ascending colon Social History Tobacco Use Types Packs/Day Years Used Date Smoking Tobacco: Former Smokeless Tobacco: Never Comments:quite 17 years ago Sex and Gender Information Value Date Recorded Sex Assigned at Not on file Gender Identity Female 10/25/2020 5:11 AM EST Sexual Orientation Not on file documented as of this encounter Progress Notes * Yahaira Hinton RN - 07/29/2017 11:30 AM EDT INFUSION THERAPY ADMINISTRATION NOTES DIAGNOSIS: 1. [...] 500 Units, Intravenous, ONCE PRN, Starting on Tue07/29/17 at 0944, Until Tue07/29/17 at 1200, Line Care, Refer to Intravenous (IV) Procedure: Accessing Implanted Vascular Access Devices (654) procedure and/or Intravenous (IV) Job Aid: Adult Flushing & Catheter Care (9362) job aid for additional information regarding guidelines and administration., Routine Given 07/29/2017 9:45 AM EDT 500 Units sodium chloride 0.9 % flush 5-20 mL 5-20 mL, Intravenous, EVERY 1 MIN PRN, Starting on Tue07/29/17 at 0944, Until Tue07/29/17 at 1200, Line Care, Flush pertains to all indwelling lines. Flush per protocol found in the job aid using the link provided on this medication record. Refer to Intravenous (IV) Job Aid: Adult Flushing & Catheter Care (3571) job aid for additional information regarding guidelines and administration., Routine Given 07/29/2017 9:45 AM EDT 20 mLs documented in this encounter Care Teams Social Science Analyst Relationship Specialty Start Date End Date Poly Copeland MD [address] [facility] 1 [place] [address] PCP - General 09/15/10 documented as of this encounter
--- OUTSIDE RECORDS SUMMARY | 2024-09-11 10:57 | XMS_ITS | Encounter Summary ---
Author Organization [facility] Address [facility] [place] [address] Care Team Providers Care Community Engagement Representative Name Role Phone Poly Copeland MD Primary Care Provider [phone] Encounter Details Date Type Department Care Team (Late st Contact Info) Description 03/01/2018 [place] [phone] Sheryl Au MSW Social History Tobacco Use Types Packs/Day Years Used Date Smoking Tobacco: Former Smokeless Tobacco: Never Comments:quite 17 years ago Sex and Gender Information Value Date Recorded Sex Assigned at Not on file Gender Identity Female 10/25/2020 5:11 AM EST Sexual Orientation Not on file documented as of this encounter Progress Notes * Sheryl Au MSW - 03/01/2018 12:16 PM EDT OFFICE OF CARE MANAGEMENT/CONTINUING HEEL PAINTER Reason for referral: Kelly Strickland is a 77 year old, female who was seen in the multidisciplinary breast care clinic for a surgical consult as she was recently diagnosed with right breast, IDC/DCIS. 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 After meeting with Dr. Mayen, pt has decided to have a mastectomy. She will receive her medical oncology care at the [facility] with Dr. Del Toro who treated her colon cancer. [facility] met with pt to complete a psychosocial assessment and to explain my role in the breast program. Pt was encouraged to contact me if she has any questions or concerns. Living arrangements/social supports: Pt lives alone in [place], [place]. She has three sons. Two live in [place] in the [facility] and one resides in [place]. Pt states she has support from her family and her son, MERRICK, accompanied her to today's visit. 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 She has Medicare A and B and has been approved for financial assistance at [facility]. Pthas prescription coverage through [employer], a [place] prescription program. Tobacco/drug/alcohol history: Pt states she quit smoking 16 years ago and has an occasional drink. Advance Directives: Pt has completed advance directives but they are not on file in her medical record. Pt was asked to provide copies of her ADs so they can be scanned into her medical record. Adjustment to illness/Mental Health Concerns: Pt feels she is coping well with her second occurrence of breast cancer. She states she has support from her family. Pt recently completed treatment for colon cancer at the [facility] and will continue her breast cancer care with Dr. Del Toro, her medical oncologist. Pt is aware of the support and services available to her in cancer center. Plan: [facility] will continue to follow pt to assess and assist with their psychosocial needs. [facility] [phone] Pager #[phone] documented in this encounter Plan of Treatment Not on file documented as of this encounter Visit Diagnoses Not on filedocumented in this encounter Care Teams Community Engagement Representative Relationship Specialty Start Date End Date Poly Copeland MD [address] [facility] [address] [place] [address] PCP - General 09/15/10 documented as of this encounter
--- OUTSIDE RECORDS SUMMARY | 2024-09-11 10:57 | XMS_ITS | Encounter Summary ---
Author Organization [facility] Address [facility] [place] [address] Care Team Providers Care Scheduler Name Role Phone Poly Copeland MD Primary Care Provider [phone] Encounter Details Date Type Department Care Team (Latest Contact Info) Description 09/08/2017 - 09/08/2017 11:59 PM EST Hospital Encounter Radiology Library at [facility] [place] [phone] Raffi Del Toro MD [facility] [place] [address] Discharge Disposition: Home Social History Tobacco Use [...] D3, (VITAMIN D) 1,000 unit Cap 09/30/2010 cyanocobalamin 1,000 mcg Tablet Take 1,000 mcg by mouth daily. 05/15/2021 Calcium Carbonate (TUMS) 300 mg (750 mg) Chew 09/30/2010 11/16/2019 naproxen sodium (ANAPROX) 550 mg TabletIndications:Hea dache, chronic daily Take 1 tablet by mouth 2 times daily (with meals). After one week, may decrease to PRN 60 tablet 12 05/10/2017 03/02/2018 prochlorperazine (COMPAZINE) 10 mg TabletIndications:Adalberto g-induced nausea and vomiting Take 1 tablet by mouth every 6 hours as needed for Nausea. 20 tablet 3 03/25/2017 12/30/2017 ondansetron (ZOFRAN) 8 mg TabletIndications:Adalberto g-induced nausea and vomiting Take 1 tablet by mouth every 8 hours as needed for Nausea. Do not take for first 3 days after chemotherapy 20 tablet 3 03/25/2017 12/30/2017 UMECLIDINIUM BROMIDE (INCRUSE ELLIPTA INHL) Inhale into the lungs daily. 03/02/2018 documented as of this encounter Plan of Treatment Not on file documented as of this encounter Procedures Procedure Name Priority Date/Time Associated Diagnosis Comments LAB SCAN 09/08/2017 12:00 AM EST FILM LIBRARY STORAGE ONLY CT CHEST ABDOMEN PELVIS Routine 09/08/2017 12:00 AM EST documented in this encounter Results * Film Library- Storage Only CT Chest Abdomen Pelvis (09/08/2017 12:00 AM EST) Narrative [facility] - 09/08/2017 6:13 PM EST This exam is for storage only and is auto-finalizing. Raffi Del Toro MD IMRena FILM LIBRARY ORD ERABLES [facility] * SCAN DOC: LAB (09/08/2017 12:00 AM EST) Narrative 09/08/2017 12:00 AM EST Ordered by an unspecified provider. Scanning Provider MEDIA MGR SCAN EXT O RDR/RSLT documented in this encounter Visit Diagnoses Not on filedocumented in this encounter Care Teams Scheduler Relationship Specialty Start Date End Date Poly Copeland MD [address] [place] [address] PCP - General 09/15/10 documented as of this encounter
--- OUTSIDE RECORDS SUMMARY | 2024-09-11 10:57 | XMS_ITS | Encounter Summary ---
Author Organization [facility] [place] [address] Care Team Providers Care Capping Machine Operator Name Role Phone Poly Copeland MD Primary Care Provider [phone] Encounter Details Date Type Department Care Team (Late st Contact Info) Description 09/30/2017 Orders Only Hematology [place] [phone] Raffi Del Toro MD [facility] [place] [address] Social History Tobacco Use Types Packs/Day Years [...] on filedocumented in this encounter Care Teams Capping Machine Operator Relationship Specialty Start Date End Date Poly Copeland MD [address] [place] [address] PCP - General 09/15/10 documented as of this encounter
--- OUTSIDE RECORDS SUMMARY | 2024-09-11 10:57 | XMS_ITS | Encounter Summary ---
Author Organization [facility] Address [facility] [place] [address] Care Team Providers Care Esl Tutor Name Role Phone Poly Copeland MD Primary Care Provider [phone] Reason for Referral * Consultation (Routine) - Specialty Diagnoses / Procedures Referred By Contgail t Referred To Contact Diagnoses Malignant neoplasm of ascending colon Raffi Del Toro MD [facility] [place] [address] Arnaldo Gardiner, DO [address] [place] [id number] Referral ID Status Reason Start Date Expiration Date V isits Requested Visits Authorized [id number] Consult, Test & Treat 09/16/2017 03/15/2018 1 1 Encounter Details Date Type Department Care Team (Late st Contact Info) Description 09/16/2017 2:00 PM EST Office Visit Hematology/Oncology at [address] [phone] Raffi Del Toro MD [facility] [place] [address] Malignant neoplasm of ascending colon Social History [...] Sign Reading Time Taken Comments Blood Pressure 143/70 09/16/2017 1:47 PM EST Pulse 81 09/16/2017 1:47 PM EST Temperature 36.5 ??C (97.7 ??F) 09/16/2017 1:47 PM ES T Respiratory Rate 18 09/16/2017 1:47 PM EST Oxygen Saturation 99% 09/16/2017 1:47 PM EST Inhaled Oxygen Concentration - - Weight 97.1 kg (214 lb) 09/16/2017 1:47 PM EST Height 162 cm (5' 3.78) 09/16/2017 1:47 PM EST copied Body Mass Index 36.99 09/16/2017 1:47 PM EST documented in this encounter Progress Notes * Raffi Del Toro MD - 09/16/2017 2:00 PM EST Subjective: Patient ID: Kelly Strickland [...] B. 01/23/17 - Right hemicolectomy Path ([facility] review) - CONSULTATION CASE Outside slide(s) labeled [id number], collection date 01/23/2017. Ascending colon, cecum, terminal [...] is by herself. She is feeling well in general. She does have persistent numbness and tingling in her fingers. She has not noticed any improvement in this yet. No other complaints. She is eating well and has gained a couple of pounds. Her energy level is good. The headaches have improved. The mouth sores have resolved as well. This was actually the most difficult aspect of the most recent treatment. No fevers or signs/symptoms of infection. Soc Hx: , lives alone in [place], [place] Tob - Quit 17 years ago Etoh - None Works [employer] Fam Hx: Father - at age 81, [...] is normal. Vitals reviewed. Labs: WBC/ANC - 7., Hgb/Hct - 12/38.8, Plts - 205,000. BUN/Cr -20/1.05. Alb - 3.3 Lytes and LFTs o/w unremarkable. CEA: 09/08/17 0.8 05/27/17 <0.5 04/28/17 1.0 03/18/[address] personally reviewed, report krystal Assessment and Plan: Ms. Strickland is a [...] therapy with Folfox and has received 9 cycles, the last given on 08/11/17. Therapy was stopped at that point due to cumulative toxicity, including neuropathy. The CT done on 09/08/17, shows no evidence of metastatic disease. We will make a referral for mediport removal. I will plan to see her back in three months with labs. F/u CT scans will be done every 6 months for the first two years, then annually out to 5 years, unless needed sooner based on clinical assessment. She is already scheduled for a colonoscopy around 02/08, about a year from her surgery. documented in this encounter Plan of Treatment Scheduled Referrals Name Type Priority Associated Diagnoses Orde r Schedule Referral to General Surgery Outpatient Referral Routine Malignant neoplasm of ascending colon Ordered: 09/16/2017 documented as of this encounter Procedures Procedure Name Priority Date/Time Associated Diagnosis Comments LAB SCAN 09/16/2017 12:00 AM EST documented in this encounter Results * SCAN DOC: LAB (09/16/2017 12:00 AM EST) Narrative 09/16/2017 12:00 AM EST Ordered by an unspecified provider. Scanning Provider MEDIA MGR SCAN EXT O RDR/RSLT documented in this encounter Visit Diagnoses Diagnosis Malignant neoplasm of ascending colon documented in this encounter Care Teams Esl Tutor Relationship Specialty Start Date End Date Poly Copeland MD [address] [place] [address] [address] [facility] 1 [place] [address] PCP - General 09/15/10 documented as of this encounter
--- OUTSIDE RECORDS SUMMARY | 2024-09-11 10:57 | XMS_ITS | Encounter Summary ---
Author Organization [facility] [place] [address] Care Team Providers Care Blood Typer Name Role Phone Poly Copeland MD Primary Care Provider [phone] Encounter Details Date Type Department Care Team (Late st Contact Info) Description 03/06/2018 Telephone Hematology [place] [phone] Kina Tay Social History Tobacco Use Types Packs/Day Years Used Date Smoking Tobacco: Former Smokeless Tobacco: Never Comments:quite 17 years ago Sex and Gender Information Value Date Recorded Sex Assigned at Not on file Gender Identity Female 10/25/2020 5:11 AM EST Sexual Orientation Not on file documented as of this encounter Miscellaneous Notes * Telephone Encounter - Kina Tay - 03/06/2018 10:44 AM EDT Age at diagnosis: 77 Date of diagnosis: February 02, 2018 Place of diagnosis: Internal Date of initial appointment: 18 Surgeon: Faheem Referral to Medical Oncology: Yes, Internal Medical Oncologist:Kaleb Referral to Radiation Oncology:No Radiation Oncologist: Other Referral to Plastic Surgery: No documented in this encounter Plan of Treatment Not on file documented as of this encounter Visit Diagnoses Not on filedocumented in this encounter Care Teams Blood Typer Relationship Specialty Start Date End Date Poly Copeland MD [address] [place] [address] PCP - General 09/15/10 documented as of this encounter
--- OUTSIDE RECORDS SUMMARY | 2024-09-11 10:57 | XMS_ITS | Encounter Summary ---
Author Organization [facility] [place] [address] Care Team Providers Care Watch Crystal Cutter Name Role Phone Poly Copeland MD Primary Care Provider [phone] Encounter Details Date Type Department Care Team (Late st Contact Info) Description 06/29/2017 Orders Only Hematology [place] [phone] Raffi Del Toro MD [facility] [place] [address] Hypokalemia Social History Tobacco Use Types Packs/Day Years Used Date Smoking Tobacco: Former Smokeless Tobacco: Never Comments:quite 17 years ago Sex and Gender Information Value Date Recorded Sex Assigned at Not on file Gender Identity Female 10/25/2020 5:11 AM EST Sexual Orientation Not on file documented as of this encounter Plan of Treatment Not on file documented as of this encounter Visit Diagnoses Diagnosis Hypokalemia Hypopotassemia documented in this encounter Care Teams Watch Crystal Cutter Relationship Specialty Start Date End Date Poly Copeland MD [address] [place], [place] [address] PCP - General 09/15/10 documented as of this encounter
--- OUTSIDE RECORDS SUMMARY | 2024-09-11 10:57 | XMS_ITS | Encounter Summary ---
Author Organization [facility] [place] [address] Care Team Providers Care Wet Machine Tender Name Role Phone Poly Copeland MD Primary Care Provider [phone] Encounter Details Date Type Department Care Team (Late st Contact Info) Description 01/25/2018 3:20 PM EDT - 01/25/2018 11:59 PM EDT Hospital Encounter Radiology Library at [facility] [place] [phone] Poly Copeland MD [address] [place], [place] [id number] Breast mass, right Discharge Disposition: Home Social History Tobacco Use [...] Procedure Name Priority Date/Time Associated Diagnosis Comments REQUEST FOR 2ND READ MAMMO Routine 01/25/2018 3:20 PM EDT Breast mass, right documented in this encounter Results * Request for 2nd read Mammo (01/25/2018 3:20 PM EDT) Anatomical Region Laterality Modality SO Narrative 01/27/2018 10:34 AM EDT INTERPRETATION OF OUTSIDE BREAST IMAGING I have been asked to consult on this patient by Dr. Poly Copeland because he/she believes a review of this study may change or alter the care of this patient. STUDIES FROM: [facility] DATES: August 17, 2011 plus recent comparison dated January 24, 2018. CLINICAL HISTORY: 77-year-old female present for outside interpretation diagnostic mammogram findings, specifically correlating to a BI-RADS Category 4 lesion along 10:00 region of the RIGHT breast, 9 cm from the nipple. Right Breast Nodule 10 O'CLOCK, CAT 4; Bx More Imaging; What Modality is the exam? Diagnostic; Body Part (please add comments as necessary): Right Breast; I believe a reinterpretation of this exam may alter care of Patient. Yes. ?? COMPARISONS: Multiple prior screening diagnostic exams. Interpretation of outside MRI studies is limited due to site-specific protocols and inability to assess dynamic contrast enhancement features. Please note: Breast ultrasound is pump station operator dependent. Complete assessment of the breast tissue is not possible through static images or cine loops. Because breast ultrasound is a dynamic process the interpretive value of outside images is limited. FINDINGS: Diagnostic ultrasound January 24, 2018: 0.5 cm x 0.4 cm x 0.5 cm round, hypoechoic lesion, along the 10:00 radian, 9 cm from the nipple, with a hyperechoic rim, without detectable internal vascularity, however, the inferior most margin shows minimal angularity (time stamp 2:20:34). Diagnostic mammographic findings January 24, 2018: There is a 0.6 cm asymmetry/mass within the RIGHT breast, upper outer quadrant, approximately 10:00 radian, 11.3 cm from the nipple, with partially obscured margins and associated punctate calcifications. ??There are no other suspicious masses, suspicious microcalcifications, or areas of architectural distortion within the RIGHT breast. IMPRESSION/recommendation: Right breast lesion 1 BI-RADS Category 0: Assessment incomplete. ??0.6 cm mass 10:00 position 11 cm from the nipple. Recommend second look ultrasound to determine if this will get up graded to category 4 and require biopsy I have personally reviewed the image(s) and the residents interpretation and agree with the findings, Dulce Zavala at 01/27/2018 10:34 AM Procedure Note Dulce Zavala MD - 01/27/2018 INTERPRETATION OF OUTSIDE BREAST IMAGING I have been asked to consult on this patient by Dr. Poly Piersonause he/she believes a review of this study may change or alter the care ofthis patient. STUDIES FROM: [facility] DATES: August 17, 2011 plus recent comparison dated January 24, 2018. CLINICAL HISTORY: 77-year-old female present for outside interpretation diagnostic mammogram findings, specifically correlating to a BI-RADSCategory 4 lesion along 10:00 region of the RIGHT breast, 9 cm from the nipple. Right Breast Nodule 10 O'CLOCK, CAT 4; Bx More Imaging; What Modality isthe exam? Diagnostic; Body Part (please add comments as necessary): RightBreast; I believe a reinterpretation of this exam may alter care of Patient. Yes. COMPARISONS: Multiple prior screening diagnostic exams. Interpretation of outside MRI studies is limited due to site-specificprotocols and inability to assess dynamic contrast enhancement features. Please note: Breast ultrasound is pump station operator dependent. Complete assessmentof the breast tissue is not possible through static images or cine loops.Because breast ultrasound is a dynamic process the interpretive value of outsideimages is limited. FINDINGS: Diagnostic ultrasound January 24, 2018: 0.5 cm x 0.4 cm x 0.5 cm round, hypoechoic lesion, along the 10:00 radian,9 cm from the nipple, with a hyperechoic rim, without detectable internal vascularity, however, the inferior most margin shows minimal angularity(time stamp 2:20:34). Diagnostic mammographic findings January 24, 2018: There is a 0.6 cm asymmetry/mass within the RIGHT breast, upper outerquadrant, approximately 10:00 radian, 11.3 cm from the nipple, with partiallyobscured margins and associated punctate calcifications. There are no othersuspicious masses, suspicious microcalcifications, or areas of architecturaldistortion within the RIGHT breast. IMPRESSION/recommendation: Right breast lesion 1 BI-RADS Category 0: Assessment incomplete. 0.6 cmmass 10:00 position 11 cm from the nipple. Recommend second look ultrasoundto determine if this will get up graded to category 4 and require biopsy I have personally reviewed the image(s) and the residents interpretationand agree with the findings, Dulce Zavala at 01/27/2018 10:34 AM Poly Copeland MD IMG OUTSIDE INTERPRE TATION ORDERABLES documented in this encounter Visit Diagnoses Diagnosis Breast mass, right Lump or mass in breast documented in this encounter Care Teams Wet Machine Tender Relationship Specialty Start Date End Date Poly Copeland MD [address] [place] [address] PCP - General 09/15/10 documented as of this encounter
--- OUTSIDE RECORDS SUMMARY | 2024-09-11 10:57 | XMS_ITS | Encounter Summary ---
Author Organization [facility] Address [facility] [place] [address] Care Team Providers Care Spring Crater Name Role Phone Poly Copeland MD Primary Care Provider [phone] Reason for Referral * Diagnostic Test (Routine) - Closed Specialty Diagnoses / Procedures Referred By Contac t Referred To Contact Radiology Diagnoses Malignant neoplasm of right female breast, unspecified estrogen receptor status, unspecified site of breast Procedures NM Paul Node Injection Breast wo Imaging Samantha Mayen MD [facility] [place] [address] [place] [address] Referral ID Status Reason Start Date Expiration Date V isits Requested Visits Authorized [id number] Closed Specialty Service Requested 03/02/2018 03/02/2019 1 1 Encounter Details Date Type Department Care Team (Late st Contact Info) Description 03/01/2018 Orders Only [place] [phone] Samantha Mayen MD [facility] [place] [address] Malignant neoplasm of right female breast, unspecified [...] documented as of this encounter Results * NM Paul Node Injection Breast wo Imaging (03/17/2018 9:51 AM EDT) Anatomical Region Laterality Modality Nuclear Medicine Impressions 03/17/2018 1:18 PM EDT Paul node injections performed without complication. Narrative 03/17/2018 [...] patient left the department ingood condition. IMPRESSION Paul node injections performed without complication. Samantha Mayen MD [facility] [place] ORDERABLES documented in this encounter Visit Diagnoses Diagnosis Malignant neoplasm of right female breast, unspecified estrogen receptor status, unspecified site of breast Malignant neoplasm of right female breast, unspecified estrogen receptor status, unspecified site of breast documented in this encounter Care Teams Spring Crater Relationship Specialty Start Date End Date Poly Copeland MD [address] [facility] 1 [place] [address] PCP - General 09/15/10 documented as of this encounter
--- OUTSIDE RECORDS SUMMARY | 2024-09-11 10:57 | XMS_ITS | Encounter Summary ---
Author Organization [facility] Address [facility] [place] [address] Care Team Providers Care [employer] Rep Name Role Phone Poly Copeland MD Primary Care Provider [phone] Encounter Details Date Type Department Care Team (Late st Contact Info) Description 01/30/2018 1:31 PM EDT Hospital Encounter [place] [phone] Dulce Zavala MD [facility] [place] [address] Abnormal mammogram Discharge Disposition: Home Social History [...] Priority Date/Time Associated Diagnosis Comments MAMMO DIAGNOSTIC CAD RIGHT Routine 01/30/2018 2:20 PM EDT Abnormal mammogram documented in this encounter Results * Mammo Diagnostic Cad Right (01/30/2018 2:20 PM EDT) Anatomical Region Laterality Modality Breast [...] unspecified documented in this encounter Care Teams [employer] Rep Relationship Specialty Start Date End Date Poly Copeland MD [address] [place] [address] PCP - General 09/15/10 documented as of this encounter
--- OUTSIDE RECORDS SUMMARY | 2024-09-11 10:57 | XMS_ITS | Encounter Summary ---
Author Organization [facility] Address [facility] [place] [address] Care Team Providers Care Sheet Metal Assembler Name Role Phone Poly Copeland MD Primary Care Provider [phone] Encounter Details Date Type Department Care Team (Latest Contact Info) Description 07/22/2017 - 07/22/2017 11:59 PM EDT Hospital Encounter Radiology Library at [facility] [place] [address] Tucker Calle MD [facility] [address] [place] [address] Discharge Disposition: Home Social History Tobacco Use [...] Comments FILM LIBRARY STORAGE ONLY MAMMO Routine 07/22/2017 12:00 AM EDT documented in this encounter Results * Film Library- Storage Only Mammo (07/22/2017 12:00 AM EDT) Narrative [facility] - 01/25/2018 9:42 AM EDT This exam is for storage only and is auto-finalizing. Tucker Calle MD IMG FILM LIBRARY ORD ERABLES [place], [place] documented in this encounter Visit Diagnoses Not on filedocumented in this encounter Care Teams Sheet Metal Assembler Relationship Specialty Start Date End Date Poly Copeland MD [address] [place] [address] PCP - General 09/15/10 documented as of this encounter
--- OUTSIDE RECORDS SUMMARY | 2024-09-11 10:57 | XMS_ITS | Encounter Summary ---
Author Organization [facility] Address [facility] [place] [address] Care Team Providers Care Underground Supervisor Name Role Phone Poly Copeland MD Primary Care Provider [phone] Reason for Visit * Consultation (Routine) - Specialty Diagnoses / Procedures Referred By Contac t Referred To Contact Surgical Oncology / Hematology and Oncology Diagnoses Breast cancer right breast idc - pt wants mastectomy. s/p l breast mastec in 2008 with Lisa just finished chemo with Dr. Del Toro for Colon Cancer. Procedures [facility] Poly Copeland MD [address] [place] [address] Samantha Mayen MD [facility] [place] [address] Referral ID Status Reason Start Date Expiration Date V isits Requested Visits Authorized [id number] 03/01/2018 03/01/2019 1 1 Encounter Details Date Type Department Care Team (Late st Contact Info) Description 03/01/2018 10:00 AM EDT Office Visit Hematology [place] [address] Samantha Mayen MD [facility] [place] [address] Giana Mitchell, RN Malignant neoplasm of upper-outer quadrant of right [...] Sign Reading Time Taken Comments Blood Pressure 133/53 03/01/2018 9:56 AM EDT Pulse 69 03/01/2018 9:56 AM EDT Temperature 36.4 ??C (97.5 ??F) 03/01/2018 9:56 AM ED T Respiratory Rate 18 03/01/2018 9:56 AM EDT Oxygen Saturation 96% 03/01/2018 9:56 AM EDT Inhaled Oxygen Concentration - - Weight 98 kg (216 lb) 03/01/2018 9:56 AM EDT Height 162 cm (5' 3.78) 03/01/2018 9:56 AM EDT Body Mass Index 37.33 03/01/2018 9:56 AM EDT documented in this encounter Progress Notes * Samantha Mayen MD - 03/01/2018 10:00 AM EDT Subjective: Patient ID: Kelly Strickland is a 77 y.o. female. KEDAR Yoo is a 77 yo female [...] with chemotherapy and is currently feeling well. Screening mammogram in January, revealed a 5mm asymmetry at 10:00 in the right breast. Call backs and u/s confirmed a solid mass. Biopsy revealed IDC which is strongly ER/VT+ and her2-. No other lesions were noted in either breast. Naila denies breast masses, nipple discharge, adenopathy SH: Has 3 sons, 5 grandchildren and 2 great-grandchildren. History of tobacco- quit 16 years ago. Rare david sethi. 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 PMH HTN Colon cancer DCIS RAD FH: Mother with likely colon ca ( secondary to GI malignancy) Maternal grandmother with breast cancer Review of Systems Constitutional: Negative. HENT: Negative. [...] She has a normal mood and affect. Imaging: as in HPI CBC, LFTs normal 12/11 Assessment and Plan: 77 yo female with [...] Risks of bleeding, infection and lymphedema discussed. I will set Naila up to see Dr Del Toro to discuss AI therapy post operatively. She will also see PT for ROM of the right arm. I do not suspect there will be a role for PMRT and unlikely she will requireany additional chemotherapy. Discussed genetic testing given personal history- we will set up appointment for this. * Giana Mitchell RN - 03/01/2018 10:00 AM EDT Comprehensive Breast Program Note Kelly Strickland, who goes by Naila, is a 77 y.o. female with right breast cancer. 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 SPECIFIC TEACHIN. Breast Cancer Treatment Handbook (Michelle Gupta, 2012) was received via mail. 2. Information from our Shared Decision-Marking Program on Early-Stage Breast Cancer was sent to her. 3. She understands she will meet with her medical oncologist (prefers Dr. Del Toro in [facility]) and possibly a radiation oncologist ([facility]) after surgery. 4. Contact phone number for questions or concerns in the immediate post- operative period. 5. Comprehensive Breast Program Binder. 6. Post Breast Surgery Exercises handout created by physical therapists at [facility]. 7. Breast Cancer Treatment Process care map provided and reviewed. 8. Things to Consider...What I Wish I Knew advice from breast cancer patients handout provided. 9. Contact information for the General Surgery Clinic Nurses was given and the Doctor environmental services director system explained. She verbalized understanding of the plan of care and states all her questions were answered. Fifteen minutes was spent in education and providing support. Naila has our contact information. She will schedule surgery on way out (in 4L) today. Pre-op MRI: No Pre- Operative Breast Surgery Instructions. Kelly Strickland presents to the General Surgery Clinic to receive pre operative teaching on drain care. A Talha Farnsworth drain model was used to teach drain care along with the milking/ stripping techniques. Written information was reviewed with and given to Kelly along with a tally sheet to keep track of amounts, a marsupial pouch and a measuring cup. The Prevention of Deep Vein Thrombosis pamphlet, the Breast Surgery Discharge Instructions and PostBreast Surgery Exercises were reviewed and given to Kelly. A Visiting Nurse referral was offered to [facility]. Plan to refer her to [facility] once surgery date is known. Contact information for the General Surgery Clinic Nurses was given and the Doctor environmental services director system explained. documented in this encounter Plan of Treatment Not on file documented as of this encounter Visit Diagnoses Diagnosis Malignant neoplasm of upper-outer quadrant of right breast in female, estrogen receptor positive documented in this encounter Care Teams Underground Supervisor Relationship Specialty Start Date End Date Poly Copeland MD [address] [place] [address] 1 [place] [address] PCP - General 09/15/10 documented as of this encounter
--- OUTSIDE RECORDS SUMMARY | 2024-09-11 10:57 | XMS_ITS | Encounter Summary ---
Author Organization [facility] Address [facility] [place] [address] Care Team Providers Care On Car Supervisor Name Role Phone Poly Copeland MD Primary Care Provider [phone] Reason for Visit * Reason Comments IV Access pump disconnect and IVF * Treatment/Therapy Plan Authorization (Routine) - Closed Specialty Diagnoses / Procedures Referred By Contac t Referred To Contact Diagnoses Malignant neoplasm of ascending colon Raffi Del Toro MD [facility] [place] [address] Referral ID Status Reason Start Date Expiration Date Visits Re quested Visits Authorized [id number] Closed 03/04/2017 03/04/2018 1 1 Encounter Details Date Type Department Care Team (Late st Contact Info) Description 08/11/2017 12:30 PM EDT Infusion Hematology Oncology at [address] [address] Malignant neoplasm of ascending colon [...] Sign Reading Time Taken Comments Blood Pressure 136/75 08/11/2017 1:52 PM EDT Pulse 76 08/11/2017 1:52 PM EDT Temperature 36.4 ??C (97.5 ??F) 08/11/2017 1:52 PM ED T Respiratory Rate 18 08/11/2017 1:52 PM EDT Oxygen Saturation 97% 08/11/2017 1:52 PM EDT Inhaled Oxygen Concentration - - Weight - - Height - - Body Mass Index - - documented in this encounter Progress Notes * Ruth Mcdonald RN - 08/11/2017 12:30 PM EDT INFUSION THERAPY ADMINISTRATION NOTES DIAGNOSIS: 1. Malignant neoplasm of ascending colon sodium chloride 0.9% infusion Home Infusion: Pump Disconnect heparin, porcine 100 unit/mL flush 500 Units sodium chloride 0.9 % flush 5-20 mL REASON FOR VISIT: Discontinue 5FU home infusion and deaccess mediport SUBJECTIVE Kelly Strickland reports new neuropathy symptoms, tingling in and hands and feet. Mary Duque APRN made aware. OBJECTIVE: VITAL SIGNS: BP 136/75 (Patient Position: Sitting) Pulse 76 Temp 36.4 ??C (97.5 ??F) (Oral) Resp 18 ItV381% REACTIONS (DESCRIPTION, TIME, INTERVENTION AND EFFECTIVENESS) none ASSESSMENT Kelly Strickland was awake, alert and he tolerated treatment well. 1L NS infused after disconnectof pump. Port flushed with 20cc NS and 500 units Heparin then de-accessed after completion of treatment. Pump cleaned and returned to pharmacy. PLAN Return to clinic per routine. documented [...] 500 Units, Intravenous, ONCE PRN, Starting on Ayesha 08/11/17 at 1349, Until Ayesha 08/11/17 at 1714, Line Care, Refer to Intravenous (IV) Procedure: Accessing Implanted Vascular Access Devices (214) procedure and/or Intravenous (IV) Job Aid: Adult Flushing & Catheter Care (1474) job aid for additional information regarding guidelines and administration., Routine Given 08/11/2017 3:05 PM EDT 500 Units sodium chloride 0.9 % flush 5-20 mL 5-20 mL, Intravenous, EVERY 1 MIN PRN, Starting on Ayesha 08/11/17 at 1349, Until Ayesha 08/11/17 at 1714, Line Care, Flush pertains to all indwelling lines. Flush per protocol found in the job aid using the link provided on this medication record. Refer to Intravenous (IV) Job Aid: Adult Flushing & Catheter Care (4661) job aid for additional information regarding guidelines and administration., Routine Given 08/11/2017 3:05 PM EDT 20 mLs sodium chloride 0.9% infusion 1,000 mL/hr, Intravenous, ONCE, 1 dose, On Ayesha 08/11/17 at 1415 New Bag 08/11/2017 2:05 PM EDT 1,000 mL/hr 1000 mL/hr documented in this encounter Care Teams On Car Supervisor Relationship Specialty Start Date End Date Poly Copeland MD [address] [place] [address] PCP - General 09/15/10 documented as of this encounter
--- OUTSIDE RECORDS SUMMARY | 2024-09-11 10:57 | XMS_ITS | Encounter Summary ---
Author Organization [facility] [place] [address] Care Team Providers Care Blow Down Operator Name Role Phone Poly Copeland MD Primary Care Provider [phone] Encounter Details Date Type Department Care Team (Late st Contact Info) Description 03/17/2018 11:12 AM EDT - 03/17/2018 1:13 PM EDT Surgery [facility] [place] [id number] Deandre Mayen MD [facility] [place] [address] MASTECTOMY, SIMPLE, COMPLETE (WRVU 15) Social History Tobacco Use Types Packs/Day Years Used Date Smoking Tobacco: Former Smokeless Tobacco: Never Comments:quite 17 years ago Sex and Gender Information Value Date Recorded Sex Assigned at Not on file Gender Identity Female 10/25/2020 5:11 AM EST Sexual Orientation Not on file documented as of this encounter Last Filed Vital Signs Vital Sign Reading Time Taken Comments Blood Pressure 127/62 03/17/2018 10:19 AM EDT Pulse 77 03/17/2018 10:19 AM EDT Temperature 36.1 ??C (97 ??F) 03/17/2018 10:19 AM EDT Respiratory Rate 16 03/17/2018 10:19 AM EDT Oxygen Saturation 96% 03/17/2018 10:19 AM EDT Inhaled Oxygen Concentration - - [...] closest emergency room or call the hospital strap machine operator at [phone] and ask for physician navigation officer covering for your physician. Questions or problems after 5pm or on a weekend: Call the [facility] strap machine operator at and ask for the physician navigation officer covering for your doctor. At 10:45 am [...] arm until the drain is removed Call [phone] with any questions steristrips will fall off [...] daily and record output Call clinic at [phone] for drain removal when output less than [...] of this encounter Progress Notes * Karely Villar RN - 03/17/2018 4:00 PM EDT 14:40: Discharge instructions, VNA referral and H&P faxed to [facility]. I called and , from A didn't have any questions, said the report [...] mass. 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 No other lesions were noted in either breast. Naila denies breast masses, nipple discharge, adenopathy ?? SH: Has 3 sons, 5 grandchildren and 2 great-grandchildren. History of tobacco- quit 16 years ago. Angela sethi. 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 ?? PMH HTN Colon cancer DCIS RAD [...] Imaging: as in HPI CBC, LFTs normal 218 ?? Assessment and Plan: 77 yo female [...] MD - 03/17/2018 1:22 PM EDT [facility] Operative Note Patient Name: Kelly Strickland : [id number] MR#: [id number] Case Date: 03/17/2018 Surgeon: Surgeon(s) and Role: [...] was irrigated, hemostased, and closed over a 19-Swazi Pasquale drain. Steriledressings were applied. Infection Bundle [...] PM EDT 03/17/2018 12:17 PM EDT Narrative [facility] - 03/17/2018 12:17 PM EDT Specimen requisition ordered. ??Separate Pathology report to follow Deandre Mayen MD PATHOLOGY/CYTOLOGY ORDERABLES [facility] [place] [address] * Specimen to Pathology (03/17/2018 12:13 PM EDT) AP Specimen 03/17/2018 12:1 3 PM EDT 03/17/2018 12:13 PM EDT Narrative [facility] - 03/17/2018 12:13 PM EDT Specimen requisition ordered. ??Separate Pathology report to follow Deandre Mayen MD PATHOLOGY/CYTOLOGY ORDERABLES [facility] [place] [address] * Surgical Pathology Report (03/17/2018 12:12 PM EDT) Final Diagnosis ? Location: [facility] The signing pathologist has (i) examined the relevant preparation(s) for the specimen(s) and (ii) rendered or confirmed the diagnosis(es). . ? Addendum ADDENDUM DISCUSSION SPECIAL TEST PERFORMED: Test: ??Oncotype DX [facility] Case: ??, block A3 Performing Lab: ??[facility] Performing Lab Case: ??[id number] Reported by Lavon العلي MD Date reported: ??05/11/2018 For the full text of the [facility] report please refer to [facility] Pathology in the electronic health record (eDH). Electronically signed by: ??José Miguel MEDRANO, Fili Campbell Verified: ??05/17/2018 ?Pathologist Performed at: ??-[facility] Dept. of Pathology, [place], [place] ?Surgical Pathology DIAGNOSIS A - Right [...] ?? Invasive ductal carcinoma ? Histologic Grade ([place] Histologic Score) ?Glandular (Acinar) / Tubular Differentiation: [...] 200 cells): ? 0 ? Number of [place] Nodes Examined: ?2 Pathologic Stage Classification (pTNM, AJCC 8th Edition) ? Primary Tumor (Invasive Carcinoma) (pT): ?pT1b ? Regional Lymph Nodes (pN) ?Modifier: ??(sn): Only sentinel node(s) evaluated. ?Category (pN): ?? pN0 Tumor Block(s): ?? 2016 AJCC 8th Edition CAP Annual Release ER, LA, and HER2 studies (performed on prior biopsy, 959[address]): ER: Positive ( >90%, strong) LA: Positive ( >90%, strong) HER2 FISH: Negative Electronically signed by: ??Fili Valdez MD Verified: ??03/22/2018 ?Pathologist Performed at: ??-[facility] Dept. of Pathology, [facility], [place], [place] DISCUSSION The tumor measures at least 6 mm in the prior core biopsy, [address]. In this specimen, the greatest microscopic measurement [...] with yellow-white discoloration adjacent to the inserted [place] biopsy site marker. Consistency: Firm. Borders: Well [...] (black) margin; (5) adjacent inferior parenchyma; (6) Mixologist lower outer quadrant parenchyma; (7) Mixologist upper outer quadrant parenchyma; (8) livestock sales representative upper inner quadrant parenchyma; (9) Mixologist lower inner quadrant parenchyma. ?? (R9) Ischemic Time: 2 hours, 45 minutes B - ?? Labeled/Fixative: Right axillary sentinel lymph node, fresh. Quantity/Size: Two, 1.0 x 0.7 x 0.5 cm and 1.5 x 1.0 x 0.7 cm Tissue Description: Cortes-brown lymph nodes with surrounding adipose tissue Sections/Processin g: Both lymph nodes are serially sectioned and entirely submitted (T2) ??bradley 05/17/2018 4:49 PM EDT [facility] SENTINEL LYMPH NODE / Unknown 03/17/2018 12:12 PM EDT 03/17/2018 12:12 PM EDT SENTINEL LYMPH NODE / Unknown 03/17/2018 12:12 PM EDT 03/17/2018 12:12 PM EDT Deandre Mayen MD PATHOLOGY/CYTOLOGY ORDERABLES [facility] [place] [address] documented in this encounter Visit Diagnoses Not [...] CRNA) documented in this encounter Care Teams Blow Down Operator Relationship Specialty Start Date End Date Poly Copeland MD [address] [place] [address] [address] [facility] [address] [place] [address] PCP - General 09/15/10 documented as of this encounter
--- OUTSIDE RECORDS SUMMARY | 2024-09-11 10:58 | XMS_ITS | Encounter Summary ---
Author Organization [facility] [place] [address] Care Team Providers Care Rn Document Improvement Specialist Name Role Phone Poly Copeland MD Primary Care Provider [phone] Encounter Details Date Type Department Care Team (Latest Contact Info) Description 01/23/2017 - 01/23/2017 12:14 AM EDT Hospital Encounter Radiology Library at [facility] [place] [address] Landry Ng MD [facility] [place] [address] Pain Discharge Disposition: Home Social History Tobacco Use Types Packs/Day Years Used Date Smoking Tobacco: Former Sex and Gender Information Value Date Recorded Sex Assigned at Not on file Gender Identity Female 10/25/2020 5:11 AM EST Sexual Orientation Not on file documented as of this encounter Medications at Time of Discharge Medication Sig Dispensed Refills Start Date End Date Cholecalciferol, Vitamin D3, (VITAMIN D) 1,000 unit Cap 09/30/2010 Calcium Carbonate (TUMS) 300 mg (750 mg) Chew 09/30/2010 020 TIOTROPIUM BROMIDE (SPIRIVA WITH HANDIHALER INHL) Inhale into the lungs. 03/04/2017 ACETAMINOPHEN/DP-HYDRAM HCL (TYLENOL PM ORAL) 09/30/20102016 documented as of this encounter Plan of Treatment Not on file documented as of this encounter Procedures Procedure Name Priority Date/Time Associated Diagnosis Comments FILM LIBRARY STORAGE ONLY DX ABDOMEN STAT 01/23/2017 12:00 AM EDT Pain documented in this encounter Results * Film Library- Storage Only DX Abdomen (01/23/2017 12:00 AM EDT) Narrative [facility] - 02/22/2017 10:32 AM EDT This exam is for storage only and is auto-finalizing. Landry Ng MD IMG FILM LIBRARY ORD ERABLES Performing Organization Address City/State/[facility] Co de Phone Number [place], [place] documented in this encounter Visit Diagnoses Diagnosis Pain Generalized pain documented in this encounter Care Teams Rn Document Improvement Specialist Relationship Specialty Start Date End Date Poly Copeland MD [address] [place] [address] PCP - General 09/15/10 documented as of this encounter
--- OUTSIDE RECORDS SUMMARY | 2024-09-11 10:58 | XMS_ITS | Encounter Summary ---
Author Organization [facility] [place] [address] Care Team Providers Care Skiver Sock Linings Name Role Phone Poly Copeland MD Primary Care Provider [phone] Encounter Details Date Type Department Care Team (Latest Contact Info) Description 01/23/2017 12:15 AM EDT - 01/23/2017 11:59 PM EDT Hospital Encounter Radiology Library at [facility] [address] Landry Ng MD [facility] HEMAT[facility] [place] [address] Pain Discharge Disposition: Home Social History Tobacco [...] LIBRARY STORAGE ONLY DX ABDOMEN STAT 01/23/2017 12:15 AM EDT Pain documented in this encounter Results * Film Library- Storage Only DX Abdomen (01/23/2017 12:15 AM EDT) Narrative [facility] - 02/22/2017 10:33 AM EDT This exam is for storage only and is auto-finalizing. Landry Ng MD IMG FILM LIBRARY ORD ERABLES Performing Organization Address City/State/[facility] Co de Phone Number [place], [place] documented in this encounter Visit Diagnoses Diagnosis Pain Generalized pain documented in this encounter Care Teams Skiver Sock Linings Relationship Specialty Start Date End Date Poly Copeland MD [address] [place] [address] PCP - General 09/15/10 documented as of this encounter
--- OUTSIDE RECORDS SUMMARY | 2024-09-11 10:58 | XMS_ITS | Encounter Summary ---
Author Organization [facility] Address [facility] [place] [address] Care Team Providers Care Pipe Covering Molder Name Role Phone Poly Copeland MD Primary Care Provider [phone] Reason for Visit * Reason Comments Chemotherapy Cycle 1, Day 1 -- Fo lfox * Treatment/Therapy Plan Authorization (Routine) - Closed Specialty Diagnoses / Procedures Referred By Contac t Referred To Contact Diagnoses Malignant neoplasm of ascending colon Raffi Del Toro MD [facility] [place] [address] Referral ID Status Reason Start Date Expiration Date Visits Re quested Visits Authorized [id number] Closed 03/04/2017 03/04/2018 1 1 Encounter Details Date Type Department Care Team (Late st Contact Info) Description 03/30/2017 9:00 AM EDT Infusion Hematology Oncology at [address] [phone] Malignant neoplasm of ascending colon Social History Tobacco Use Types Packs/Day Years Used Date Smoking Tobacco: Former Sex and Gender Information Value Date Recorded Sex Assigned at Not on file Gender Identity Female 10/25/2020 5:11 AM EST Sexual Orientation Not on file documented as of this encounter Last Filed Vital Signs Vital Sign Reading Time Taken Comments Blood Pressure 130/65 03/30/2017 8:49 AM EDT Pulse 79 03/30/2017 8:49 AM EDT Temperature 36.5 ??C (97.7 ??F) 03/30/2017 8:49 AM ED T Respiratory Rate 18 03/30/2017 8:49 AM EDT Oxygen Saturation 100% 03/30/2017 8:49 AM EDT Inhaled Oxygen Concentration - - Weight 95.3 kg (210 lb) 03/30/2017 8:49 AM EDT Height 162 cm (5' 3.78) 03/30/2017 8:49 AM EDT Body Mass Index 36.3 03/30/2017 8:49 AM EDT documented in this encounter Progress Notes * Mary Granda, RN - 03/30/2017 9:00 AM EDT INFUSION THERAPY ADMINISTRATION NOTES DIAGNOSIS: colorectal cancer CYCLE #: Cycle 1, Day 1 -- Folfox REASON FOR VISIT: To receive first cycle of Folfox SUBJECTIVE: Lesli offers no complaints. OBJECTIVE: accompanied by granddaughter. VSS, weight stable. LAB DATA: WBC - 7.23, H/H - 11.4/38.1, Plt Ct - 302, ANC - 3.36, Lytes wnl, BUN/CR - 15/0.93 IV ACCESS: port accessed off site, flushes readily with brisk blood return. Patient notes that whenshe applies pressure to the left arm, such as lifting out of a chair she experiences a sharp stabbing pain at the left clavicular site. This lasts a few seconds. There is no pain or swelling noted when the port is accessed or medications administered. José Luis Pritchett RN evaluated the site with me and we can see nothing abnormal. This will be monitored. Pre administration: Chemotherapy orders independently verified for drug name, route, and dosage per patient's height, weight and BSA by Starla Granda RN and Radha Ayala [facility]. REACTIONS (DESCRIPTION, TIME, INTERVENTION AND EFFECTIVENESS) none ASSESSMENT: Lesli was awake, alert and tolerated treatment well. CADD pump provided by [employer], pump was double checked by Starla Granda RN and José Luis Pritchett RN prior to connection. Pump was checked 15min after connection and 1.15 cc was infused. Note patient and grand daughter wayched the [employer] video, were given a chenmo spill kit and instructions on the workingof the pump and how to contact [employer]. Pt. chemo teaching instructions included: During clinic hours (8am-5pm Tuesday-Tuesday): pt. can call [phone] with questions or concerns. After clinic hours (5pm-8am Tuesday-Tuesday and weekends) pt can call [phone] and ask for the mid level game designer/oncologist [employer] officer for Dr. Del Toro. Jhonathancarlos Ray Marco A verbalized understanding of potential chemotherapy side effects and home care including but not limited to- handwashing to prevent infection, signs and symptoms of low blood counts(fever, fatigue, bleeding), to call with a fever of 100.4 or greater, (was given a thermometer), any significant constipation/diarrhea, importance of nutrition and fluid intake (drinking at least 32-64 ounces of non-caffeinated beverages/day), mouth care. Jhonathancarlos Ray Marco A verbalized understanding of how to take prescription medications given for home use after chemotherapy. She has a prescription for compazine and this was reviewed with patient. Also specific instruction on Oxaliplatin's cold intolerance and neuropathy, Leucovorin and Fluorouracil. PLAN Patient is aware to call clinic with any questions and concerns M-F 8am to 5pm and to call [employer] with any questions and concerns in the off hours. Return to clinic per routine. PLAN Return to clinic per routine. documented in this encounter Plan of Treatment Not on file documented as of this encounter Procedures Procedure Name Priority Date/Time Associated Diagnosis Comments LAB SCAN 03/30/2017 12:00 AM EDT documented in this encounter Results * SCAN DOC: LAB (03/30/2017 12:00 AM EDT) Narrative 03/30/2017 12:00 AM EDT Ordered by an unspecified provider. Scanning Provider MEDIA MGR SCAN EXT O RDR/RSLT documented in this encounter Visit Diagnoses Diagnosis Malignant neoplasm of ascending colon documented in this encounter Administered Medications Inactive Administered Medications - up to 3 most recent administrations Medication Order MAR Action Action Date Dose Rate Site dexamethasone (DECADRON) injection 10 mg 10 mg, Intravenous, ONCE, 1 dose, On Tue03/30/17 at 0930, Administer prior to chemotherapy Given 03/30/2017 9:45 AM EDT 10 mg fluorouracil (ADRUCIL) 4,992 mg in sodium chloride 0.9% 138 mL chemo infusion 4,992 mg (2,400 mg/m2/dose ? 2.08 m2 Treatment Plan BSA from Recorded weight), Intravenous, ONCE, 1 dose, On Tue03/30/17 at 1200, Administer over 46 Hours, Warning Vesicant/Irritant Medication To be infused via an ambulatory infusion CADD Legacy Plus pump continuously IV at 3 mL/hr for 46 hours. Pump contains a 46 hour supply and provides a daily dose of 1200 mg/m2/day = 2400 mg/m2 IV over 46 hours with 12 mL of overfill in bag. Given 03/30/2017 12:17 PM EDT 4,992 mg 3 mL/hr fluorouracil (ADRUCIL) chemo injection 832 mg 832 mg (400 mg/m2/dose ? 2.08 m2 Treatment Plan BSA from Recorded weight), Intravenous, ONCE, 1 dose, On Tue03/30/17 at 1030, Administer over 5 Minutes Given 03/30/2017 12:10 PM EDT 832 mg 199.7 mL/hr leucovorin 350 mg in dextrose 5% 535 mL infusion 350 mg, Intravenous, ONCE, 1 dose, On Tue03/30/17 at 1030, Administer over 85 Minutes, May Y-site with OXALIplatin New Bag 03/30/2017 10:31 AM EDT 350 mg 378 mL/hr OXALIplatin (ELOXATIN) 177 mg in dextrose 5% 285.4 mL chemo infusion 177 mg (rounded from 176.8 mg = 85 mg/m2/dose ? 2.08 m2 Treatment Plan BSA from Recorded weight), Intravenous, ONCE, 1 dose, On Tue03/30/17 at 1030, Administer over 85 Minutes, Compatible with dextrose-containing solution only. Warning Vesicant/Irritant Medication New Bag 03/30/2017 10:32 AM EDT 177 mg 202 mL/hr palonosetron (ALOXI) injection 0.25 mg 0.25 mg, Intravenous, ONCE, 1 dose, On Tue03/30/17 at 0930, Administer over 30 seconds. Administer prior to chemotherapy, Routine Given 03/30/2017 9:50 AM EDT 0.25 mg documented in this encounter Care Teams Pipe Covering Molder Relationship Specialty Start Date End Date Poly Copeland MD [address] [place] [address] [address] [place] [address] PCP - General 09/15/10 documented as of this encounter
--- OUTSIDE RECORDS SUMMARY | 2024-09-11 10:58 | XMS_ITS | Encounter Summary ---
Author Organization [facility] [place] [address] Care Team Providers Care Cloth Cutting Inspector Name Role Phone Poly Copeland MD Primary Care Provider [phone] Encounter Details Date Type Department Care Team (Latest Contact Info) Description 06/10/2017 1:45 PM EDT Clinical Support Hematology/Oncology at [address] [phone] [facility] [place] [address] Dietary counseling Social History Tobacco Use Types Packs/Day Years Used Date Smoking Tobacco: Former Smokeless Tobacco: Never Comments:quite 17 years ago Sex and Gender Information Value Date Recorded Sex Assigned at Not on file Gender Identity Female 10/25/2020 5:11 AM EST Sexual Orientation Not on file documented as of this encounter Progress Notes * Lorraine Tan RD - 06/10/2017 1:45 PM EDT [facility] Initial Dietitian Assessment Seen By: Deisi Tan, MS, RD, LION HUNTER, LD Referred by: Mary Duque APRN Reason for visit: Patient and diagnosis: Colon cancer, stage IV. Assessment: HPI: Problem List: 1. Colon cancer, pT4a, pT1a A. Presented with abdominal pain, nausea and vomiting 01/23/17 CT a/p - Rotated and distended cecum suspicious for a cecal volvulus. The ileocecal valve and appendix are seen in the LUQ. Question of thickening of the wall of the ascending colon. This may represent inflammatory, infectious or neoplastic process. ?? B. 01/23/17 - Right hemicolectomy Path ([facility] review) - CONSULTATION CASE Outside slide(s) labeled [id number], collection date 01/23/2017. Ascending colon, cecum, terminal [...] MSH2 and MSH6 in the tumor cells. C. Post-op course complicated by bonifacio-hepatic abscess, requiring drain placement D. 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 2. 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 No further therapy 3. HTN 4. COPD 5. S/p cholecystectomy 4. S/p hysterectomy 5. S/p bilateral TKA Patient Active Problem List Diagnosis Code ??? Breast cancer in situ D05.90 ??? Malignant neoplasm of ascending colon C18.2 ??? Headache, chronic daily R51 Meds: reviewed Labs: reviewed Ht: 162 cm Wt: 06/10/17: stable Wt Readings from Last 3 Encounters: 06/10/17 97.5 kg (215 lb) 06/01/17 97.5 kg (215 lb) 05/27/17 97.3 kg (214 lb 9.6 oz) Wt Hx: UBW: 215 lbs in February [...] Mary Duque APRN. 06/10/17: Weight is stable. Nutrition Intervention: ? Increase caloric needs: reviewed [...] Monitoring and Evaluation: Will follow up with jac Sparks. I have provided her with my card and contact information should she have any questions in the mean time. Thank you for this consult. documented in this encounter Plan of Treatment Not on file documented as of this encounter Visit Diagnoses Diagnosis Dietary counseling Dietary surveillance and counseling documented in this encounter Care Teams Cloth Cutting Inspector Relationship Specialty Start Date End Date Poly Copeland MD [address] [place] [address] PCP - General 09/15/10 documented as of this encounter
--- OUTSIDE RECORDS SUMMARY | 2024-09-11 10:58 | XMS_ITS | Encounter Summary ---
Author Organization [facility] [place] [address] Care Team Providers Care Factory Expert Name Role Phone Poly Copeland MD Primary Care Provider [phone] Encounter Details Date Type Department Care Team (Latest Contact Info) Description 05/27/2017 9:00 AM EDT Clinical Support Hematology/Oncology at [address] [phone] [facility] [place] [address] Dietary counseling Social History Tobacco Use Types Packs/Day Years Used Date Smoking Tobacco: Former Smokeless Tobacco: Never Comments:quite 17 years ago Sex and Gender Information Value Date Recorded Sex Assigned at Not on file Gender Identity Female 10/25/2020 5:11 AM EST Sexual Orientation Not on file documented as of this encounter Progress Notes * Lorraine Tan RD - 05/27/2017 9:[address] [facility] Initial Dietitian Assessment Seen By: Deisi Tan, MS, RD, CUPOLA TAPPER, LD Referred by: Mary Duque APRN Reason [...] ?? B. 01/23/17 - Right hemicolectomy Path ([facility]) - CONSULTATION CASE Outside slide(s) labeled [id number], collection date 01/23/2017. Ascending colon, cecum, terminal [...] reviewed Labs: reviewed Ht: 162 cm Wt: Wt Readings from Last 3 Encounters: 05/27/17 97.3 kg (214 lb 9.6 oz) 05/16/17 96.8 kg (213 lb 8 oz) 05/13/17 95.3 kg (210 lb) Wt Hx: UBW: 215 lbs in [...] MVI, Food allergies or avoidances: knfa Appetite: 4/10 scale Nausea: denies Vomiting: denies Chewing: denies Dentition: Swallowing: uncomfortable with swallowing, if she speaks a lot, her voice will go hoarse. Taste Changes: some hypogeusia, tongue feldman. Uses biotene mouthwash, BID and baking soda and waterduring the day. Bowels: miralax QOD, does not early satiety Other: quit smoking [...] to nursing staff or Mary Duque APRN. Nutrition Intervention: ? Increase caloric needs: reviewed [...] Monitoring and Evaluation: Will follow up with in 2 week (s) to re-evaluate. I have provided her with my card and contact information should she have any questions in the mean time. Thank you for this consult. documented in this encounter Plan of Treatment Not on file documented as of this encounter Procedures Procedure Name Priority Date/Time Associated Diagnosis Comments LAB SCAN 05/27/2017 12:00 AM EDT documented in this encounter Results * SCAN DOC: LAB (05/27/2017 12:00 AM EDT) Narrative 05/27/2017 12:00 AM EDT Ordered by an unspecified provider. Scanning Provider MEDIA MGR SCAN EXT O RDR/RSLT documented in this encounter Visit Diagnoses Diagnosis Dietary counseling Dietary surveillance and counseling documented in this encounter Care Teams Factory Expert Relationship Specialty Start Date End Date Poly Copeland MD [address] [place] [address] [address] [facility] [address] [place] [address] PCP - General 09/15/10 documented as of this encounter
--- OUTSIDE RECORDS SUMMARY | 2024-09-11 10:58 | XMS_ITS | Encounter Summary ---
Author Organization [facility] [place] [address] Care Team Providers Care Rn Military Name Role Phone Poly Copeland MD Primary Care Provider [phone] Encounter Details Date Type Department Care Team (Latest Contact Info) Description 04/22/2017 1:00 PM EDT Clinical Support Hematology/Oncology at [address] [phone] [facility] [place] [address] Dietary counseling Social History Tobacco Use Types Packs/Day Years Used Date Smoking Tobacco: Former Smokeless Tobacco: Never Sex and Gender Information Value Date Recorded Sex Assigned at Not on file Gender Identity Female 10/25/2020 5:11 AM EST Sexual Orientation Not on file documented as of this encounter Progress Notes * Lorraine Tan RD - 04/22/2017 1:00 PM EDT [facility] Initial Dietitian Assessment Seen By: Deisi Tan, , RD, RETAIL BAKERY MANAGER, LD Referred by: Mary Duque APRN Reason [...] ?? B. 01/23/17 - Right hemicolectomy [place] [place] - CONSULTATION CASE Outside slide(s) labeled [id number], collection date 01/23/2017. Ascending colon, cecum, terminal [...] ??? Malignant neoplasm of ascending colon C18.2 Meds: reviewed Labs: reviewed Ht: 162 cm Wt: Wt Readings from Last 3 Encounters: 04/22/17 95.3 kg (210 lb) 04/13/17 94.8 kg (209 lb) 04/08/17 95.7 kg (211 lb) Wt Hx: UBW: 215 lbs in [...] go hoarse. Taste Changes: some hypogeusia, tongue feldman Bowels: miralax QOD, does not early satiety [...] appetite, and preserve muscle mass during treatment. Nutrition Intervention: ? Increase caloric needs: reviewed [...] and Evaluation: Will follow up with in 1-2 week (s) to re-evaluate. I have provided her with my card and contact information should she have any questions in the mean time. Thank you for this consult. documented in this encounter Plan of Treatment Not on file documented as of this encounter Visit Diagnoses Diagnosis Dietary counseling Dietary surveillance and counseling documented in this encounter Care Teams Rn Military Relationship Specialty Start Date End Date Poly Copeland MD [address] [place] [address] PCP - General 09/15/10 documented as of this encounter
--- OUTSIDE RECORDS SUMMARY | 2024-09-11 10:58 | XMS_ITS | Encounter Summary ---
Author Organization [facility] [place] [address] Care Team Providers Care Systems Design Engineer Name Role Phone Poly Copeland MD Primary Care Provider [phone] Encounter Details Date Type Department Care Team (Late st Contact Info) Description 01/28/2017 External Results XRay at [address] [place] [phone] Provider, Scanning Social History Tobacco Use Types Packs/Day Years Used Date Smoking Tobacco: Former Sex and Gender Information Value Date Recorded Sex Assigned at Not on file Gender Identity Female 10/25/2020 5:11 AM EST Sexual Orientation Not on file documented as of this encounter Plan of Treatment Not on file documented as of this encounter Procedures Procedure Name Priority Date/Time Associated Diagnosis Comments MAMMOGRAM SCAN Routine 01/18/2017 MAMMOGRAM SCAN Routine 12/23/2015 MAMMOGRAM SCAN Routine 12/24/2014 MAMMOGRAM SCAN Routine 10/25/2013 MAMMOGRAM SCAN Routine 08/28/2012 MAMMOGRAM SCAN Routine 08/17/2011 MAMMOGRAM SCAN Routine 01/03/2009 MAMMOGRAM SCAN Routine 01/01/2009 documented in this encounter Results * Scan Doc: Mammogram (01/18/2017) Anatomical Region Laterality Modality Other Scanning Provider MEDIA MGR SCAN EXT O RDR/RSLT * Scan Doc: Mammogram (12/23/2015) Anatomical Region Laterality Modality Other Scanning Provider MEDIA MGR SCAN EXT O RDR/RSLT * Scan Doc: Mammogram (12/24/2014) Anatomical Region Laterality Modality Other Scanning Provider MEDIA MGR SCAN EXT O RDR/RSLT * Scan Doc: Mammogram (10/25/2013) Anatomical Region Laterality Modality Other Scanning Provider MEDIA MGR SCAN EXT O RDR/RSLT * Scan Doc: Mammogram (08/28/2012) Anatomical Region Laterality Modality Other Scanning Provider MEDIA MGR SCAN EXT O RDR/RSLT * Scan Doc: Mammogram (08/17/2011) Anatomical Region Laterality Modality Other Scanning Provider MEDIA MGR SCAN EXT O RDR/RSLT * Scan Doc: Mammogram (01/03/2009) Anatomical Region Laterality Modality Other Scanning Provider MEDIA MGR SCAN EXT O RDR/RSLT * Scan Doc: Mammogram (01/01/2009) Anatomical Region Laterality Modality Other Scanning Provider MEDIA MGR SCAN EXT O RDR/RSLT documented in this encounter Visit Diagnoses Not on filedocumented in this encounter Care Teams Systems Design Engineer Relationship Specialty Start Date End Date Poly Copeland MD [address] [place] [address] PCP - General 09/15/10 documented as of this encounter
--- OUTSIDE RECORDS SUMMARY | 2024-09-11 10:58 | XMS_ITS | Encounter Summary ---
Author Organization [facility] [place] [address] Care Team Providers Care Glue Clamp Operator Name Role Phone Poly Copeland MD Primary Care Provider [phone] Encounter Details Date Type Department Care Team (Late st Contact Info) Description 06/10/2017 1:45 PM EDT Office Visit Hematology/Oncology at [address] [phone] Mary Duque, SERVICE STATION MANAGER [address] [facility] [place] [address] Malignant neoplasm of ascending colon Social History [...] Sign Reading Time Taken Comments Blood Pressure 153/57 06/10/2017 1:40 PM EDT Pulse 93 06/10/2017 1:40 PM EDT Temperature 36.5 ??C (97.7 ??F) 06/10/2017 1:40 PM ED T Respiratory Rate 16 06/10/2017 1:40 PM EDT Oxygen Saturation 98% 06/10/2017 1:40 PM EDT Inhaled Oxygen Concentration - - Weight 97.5 kg (215 lb) 06/10/2017 1:40 PM EDT Height 162 cm (5' 3.78) 06/10/2017 1:40 PM EDT Body Mass Index 37.16 06/10/2017 1:40 PM EDT documented in this encounter Progress Notes * Mary Duque, SERVICE STATION MANAGER - 06/10/2017 1:45 PM EDT Subjective: Patient ID: Kelly Strickland [...] process. B. 01/23/17 - Right hemicolectomy Path ([facility] review) - CONSULTATION CASE Outside slide(s) labeled [id number], collection date 01/23/2017. Ascending colon, cecum, terminal [...] Adjuvant therapy with Folfox started 03/30/17, s/p 2 cycles Oxaliplatin dose reduced for cycle 2 [...] by Dr. Ambrose in Neuro-Oncology on 05/10. That note is not available at this time but Mary Duque had spoken with Dr. Ambrose. It was felt possible that the oxaliplatin initiated the headache but that the more chronic headache may have been related to the regular use of ibuprofen. She recommended stopping the ibuprofen and felt it was ok to try to continue the chemotherapy. She was given a prescription for amytriptyline and naproxen. On presentation today, she reports no issues with cold neuropathy however H/A continues without a reliable pattern of waxing and waning. She's had no issues with other symptoms and remains afebrile and otherwise well. She very clearly states that if she had to choose between her cancer coming back and the headaches, she would choose to have the headaches so she is determined to be as aggressive as possible with chemotherapy. Soc Hx: , lives alone in [place], [place] Tob - Quit 17 years ago Etoh - None Works [employer] Fam Hx: Father - at age 81, heart disease, ischemic bowel Mother - at 71, colon cancer, COPD Sibs - 3 sisters, 2 in good health, 1 with COPD. No cancer Children - 3 sons, all in good health Review of Systems Constitutional: Negative for activity change, appetite change, fatigue, fever and unexpected weightchange. Respiratory: Positive for shortness of breath. Cardiovascular: Negative. Gastrointestinal: Negative. Genitourinary: Negative. Musculoskeletal: Negative. Skin: Negative. Neurological: Positive for headaches. Hematological: Negative. Psychiatric/Behavioral: Negative. BP 153/57 (Patient Position: Sitting) Pulse 93 Temp 36.5 ??C (97.7 ??F) (Oral) Resp 16 Ht 162 cm (5' 3.78) Wt 97.5 kg (215 lb) SpO2 98% BMI 37.16 kg/m2 Wt Readings from Last 3 Encounters: 06/10/17 97.5 kg (215 lb) 06/01/17 97.5 kg (215 lb) 05/27/17 97.3 kg (214 lb 9.6 oz) Objective: Physical Exam Constitutional: [...] Her behavior is normal. Vitals reviewed. Labs: 06/10/17 CBC: WBC 8.24 hemoglobin 12.4 platelets 204 CMP: Sodium 144 potassium 3.6 BUN 18 creatinine 1.18 glucose 114 calcium 9.0 total bili 0.26 AST 19ALT 23 alkaline phosphatase 85 total protein 7.2 albumin 3.3 DATE CEA 05/27/17 <0.5 05/13/17 .8 04/28/17 [facility] 06/01/2017 Day, Cycle Day 1, Cycle 4 fluorouracil (ADRUCIL) IV 300 mg/m2/dose = 621 mg leucovorin IV 350 mg OXALIplatin (ELOXATIN) IV 55.25 mg/m2/dose = 114 [facility] 06/01/2017 Day, Cycle fluorouracil (ADRUCIL) IV 1,800 mg/m2/dose = 3,726 mg leucovorin IV OXALIplatin (ELOXATIN) IV Assessment [...] seen by Dr. Ambrose in Neuro-Oncology on 05/10, please see above. After extensive discussion, she proceeded with chemotherapy with the reduced dose oxaliplatin again and lower 5FU dose by 50%. Today after discussion with Dr. Ambrose and Dr. Del Toro it has been decided that she will go ahead with treatment on Tuesday at a dose reduction level of 65%. This represents a smallincrease from her last cycle. The goal is to continue to [address] Ambrose, we increased amitriptyline from 10 mg to 25 mg and added a rapid taper of high-dose prednisone, starting at 60 mg and decreasing every 2 days by 20 mg. overall, her headaches remain unchanged. The steroids appeared not to make any difference. Therefore I will try to increase amitriptyline to 50 mg daily to see if this changes the pattern of her headaches. She states at this point they are still tolerable and she would like to continue with therapy. She will return to clinic in 2 weeks for reevaluation. She knows to call for any worsening symptoms or other bothersome issues. The plan now is to get 6 cycles of chemo in which includes oxaliplatin and then move forward without the oxaliplatin. Mary Duque, MSN, MACHINE II CUTTER, AOCN Hematology/Oncology Nurse Practitioner [place], [place] [phone] documented in this encounter Plan of Treatment Not on file documented as of this encounter Procedures Procedure Name Priority Date/Time Associated Diagnosis Comments LAB SCAN 06/10/2017 12:00 AM EDT documented in this encounter Results * SCAN DOC: LAB (06/10/2017 12:00 AM EDT) Narrative 06/10/2017 12:00 AM EDT Ordered by an unspecified provider. Scanning Provider MEDIA MGR SCAN EXT O RDR/RSLT documented in this encounter Visit Diagnoses Diagnosis Malignant neoplasm of ascending colon documented in this encounter Care Teams Glue Clamp Operator Relationship Specialty Start Date End Date Poly Copeland MD [address] [place] [address] PCP - General 09/15/10 documented as of this encounter
--- OUTSIDE RECORDS SUMMARY | 2024-09-11 10:58 | XMS_ITS | Encounter Summary ---
[place] [address] Care Team Providers Care Seam Rubber Name Role Phone Poly Copeland MD Primary Care Provider [phone] Reason for Referral * Consultation (Routine) - Closed Specialty Diagnoses / Procedures Referred By Contac t Referred To Contact Hematology and Oncology Diagnoses Malignant neoplasm of ascending colon Carcinoma in situ of breast, unspecified laterality, unspecified type Mary Duque APRN [address] [place] [address] [facility] [address] [place] [address] Referral ID Status Reason Start Date Expiration Date V isits Requested Visits Authorized [id number] Closed Consult, Test & Treat 04/29/2017 04/29/2018 1 1 Encounter Details Date Type Department Care Team (Late st Contact Info) Description 04/29/2017 3:15 PM EDT Office Visit Hematology/Oncology at [address] [phone] Mary Duque APRN [address] [facility] [place] [address] Malignant neoplasm of ascending colon; Carcinoma in situ of breast, unspecified laterality, unspecified type Social History Tobacco Use Types Packs/Day Years Used Date Smoking Tobacco: Former Smokeless Tobacco: Never Sex and Gender Information Value Date Recorded Sex Assigned at Not on file Gender Identity Female 10/25/2020 5:11 AM EST Sexual Orientation Not on file documented as of this encounter Last Filed Vital Signs Vital Sign Reading Time Taken Comments Blood Pressure 132/60 04/29/2017 3:05 PM EDT Pulse 87 04/29/2017 3:05 PM EDT Temperature 36.4 ??C (97.5 ??F) 04/29/2017 3:05 PM ED T Respiratory Rate 16 04/29/2017 3:05 PM EDT Oxygen Saturation 98% 04/29/2017 3:05 PM EDT Inhaled Oxygen Concentration - - Weight 97.1 kg (214 lb) 04/29/2017 3:05 PM EDT Height 162 cm (5' 3.78) 04/29/2017 3:05 PM EDT Body Mass Index 36.99 04/29/2017 3:05 PM EDT documented in this encounter Progress Notes * Mary Duque, WOOD CASKET MAKER - 04/29/2017 4:00 PM EDT Subjective: Patient ID: Kelly Strickland is a 77 y.o. female. Problem List: 1. Colon cancer, pT4a, pT1a A. Presented with abdominal pain, nausea and vomiting 01/23/17 CT a/p - Rotated and distended cecum suspicious for a cecal volvulus. The ileocecal valve and appendix are seen in the LUQ. Question of thickening of the wall of the ascending colon. This may represent inflammatory, infectious or neoplastic process. B. 01/23/17 - Right hemicolectomy Path ([facility] review) - CONSULTATION CASE Outside slide(s) labeled [id number], collection date 01/23/2017. Ascending colon, cecum, terminal [...] 1.[address] in superior mediastinum E. Colonoscopy: 04/12/17-patent with an inadequate prep with good visualization to the ileal colonicanastomosis. There were no polyps or masses noted. Patient did have sigmoid diverticula present. Recommended return for colonoscopy in one year. 2. 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 No further therapy 3. HTN 4. COPD 5. S/p cholecystectomy 4. S/p hysterectomy 5. S/p bilateral TKA HPI Ms. Strickland is seen for evaluation and management of stage IV colon cancer. The history is summarized above. On presentation today, she is with her son. Her jaw pain was much improved with the dose decrease and oxaliplatin however she had a persistent headache since starting treatment with 5FU and oxaliplatin. C1 she got aloxi and this was changed to zofran 8mg on C2 for the h/a but without benefit. She feels the headache was slowly getting worse. It had caused her some minor vision changes and she had no past history of headaches or migraines. She had not had any nausea and bowels are regulated on MiraLAX. She had a hoarse throat which was been uncomfortable and did have sores in her mouth over this past cycle. She finds it difficult to actually get her throat clear. This week all her other symptoms have resolved but her headache is worse and no longer responds to tylenol. Soc Hx: , lives alone in [place], [place] Tob - Quit 17 years ago Etoh - None Works [employer] Fam Hx: Father - at age 81, heart disease, ischemic bowel Mother - at 71, colon cancer, COPD Sibs - 3 sisters, 2 in good health, 1 with COPD. No cancer Children - 3 sons, all in good health Review of Systems Constitutional: Positive for fatigue (Requires a nap in the middle of the day). Negative for activity change, appetite change, fever and unexpected weight change. HENT: Positive for mouth sores (A few days after chemotherapy mild). Negative for congestion, dental problem, postnasal drip, sinus pressure and trouble swallowing. Eyes: Positive for visual disturbance (noted in association with h/a). Respiratory: Positive for shortness of breath. Cardiovascular: Negative. Gastrointestinal: Negative. Genitourinary: Negative. Musculoskeletal: Negative. Skin: Negative. Neurological: Positive for headaches (Moderate and constant-started a few days after chemotherapy and is persistent through today. Worsening over time.). Hematological: Negative. Psychiatric/Behavioral: Negative. BP 132/60 Pulse 87 Temp 36.4 ??C (97.5 ??F) (Oral) Resp 16 Ht 162 cm (5' 3.78) Wt 97.1 kg (214 lb) SpO2 98% BMI 36.99 kg/m2 Wt Readings from Last 3 Encounters: 04/29/17 97.1 kg (214 lb) 04/22/17 95.3 kg (210 lb) 04/13/17 94.8 kg (209 lb) Objective: Physical Exam Constitutional: She is [...] Her behavior is normal. Vitals reviewed. Labs: 04/28/17 CBC: WBC 5.39 hemoglobin 11.4 platelets 164 ANC 1.9 Sodium 143 potassium 3.8 BUN 16 creatinine 0.98 glucose 106 calcium 8.4 total bili 0.29 AST 25 ALT 28 alkaline phosphatase 77 total protein 6.9 albumin 3.2 CEA is pending ONCBCN ONCOLOGY (AMB) 03/30/2017 Day, Cycle Day 1, Cycle 1 fluorouracil (ADRUCIL) IV 400 mg/m2/dose = 832 mg leucovorin IV 350 mg OXALIplatin (ELOXATIN) IV 85 mg/m2/dose = 177 mg ONCBCN ONCOLOGY (AMB) 03/30/2017 Day, Cycle fluorouracil (ADRUCIL) IV 2,400 mg/m2/dose = 4,992 mg leucovorin IV OXALIplatin (ELOXATIN) IV ONCBCN ONCOLOGY (AMB) 04/13/2017 Day, Cycle Day 1, Cycle 2 fluorouracil (ADRUCIL) IV 400 mg/m2/dose = 832 mg leucovorin IV 350 mg OXALIplatin (ELOXATIN) IV 42.5 mg/m2/dose = 88 mg ONCBCN ONCOLOGY (AMB) 04/13/2017 Day, Cycle fluorouracil (ADRUCIL) IV 2,400 mg/m2/dose = 4,992 mg leucovorin IV OXALIplatin (ELOXATIN) IV MRI brain: 04/28/17 Conclusion: Minimal white matter findings consistent with microvascular 16 change. No other abnormality seen. Assessment and Plan: Ms. 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 ?? Here for evaluation for C2 FOLFOX. She had significant neuropathy with severe jaw pain when initiating eating for approximately 12 out of the 14 days of her cycle. Therefore in consultation with Dr. Del Toro we decreased her oxaliplatin dose by 50% with the intention that if she tolerates it then increase from that point. Due to the fact that she is ML H1 and PMS 2 deficient the use of 5-FU alone will likely not be beneficial. There is no role for irinotecan in this setting given current research. Therefore we will do our best to make the oxaliplatin tolerable. We can think about initiating gabapentin if necessary however due to the fact that she is elderly and lives alone we have to be very c areful about dosing. I would start at 100mg qhs and titrate up slowly. With respect to her headaches, we did an MRI of the brain to evaluate for an acute process and heldC3 last week. The MRI is negative for acute process that would explain the h/a. We have scheduled an appt for heel washer stringing machine operator for Tuesday and plan to refer her to neuro-onc next week to see if they have any ideas. In the meantime plan to hold treatment until this is sorted out. In the meantime I encouraged her to try ibuprofen to see if this was any more effective. She was scheduled for a colonoscopy on 04/[address] Caruso and this was negative for polyps or masses. They did see sigmoid diverticula. Mary Duque, MSN, HYDROGEN POWER PLANT ENGINEER, AOCN Hematology/Oncology Nurse Practitioner [place], [place] [phone] documented in this encounter Plan of Treatment Scheduled Referrals Name Type Priority Associated Diagnoses Orde r Schedule Referral to Neuro-Oncology Outpatient Referral Routine Malignant neoplasm of ascending colon Carcinoma in situ of breast, unspecified laterality, unspecified type Ordered: 04/29/2017 documented as of this encounter Procedures Procedure Name Priority Date/Time Associated Diagnosis Comments LAB SCAN 04/29/2017 12:00 AM EDT documented in this encounter Results * SCAN DOC: LAB (04/29/2017 12:00 AM EDT) Narrative 04/29/2017 12:00 AM EDT Ordered by an unspecified provider. Scanning Provider MEDIA MGR SCAN EXT O RDR/RSLT documented in this encounter Visit Diagnoses Diagnosis Malignant neoplasm of ascending colon Carcinoma in situ of breast, unspecified laterality, unspecified type documented in this encounter Care Teams Seam Rubber Relationship Specialty Start Date End Date Poly Copeland MD [address] [place] [address] [address] [facility] [place] [address] PCP - General 09/15/10 documented as of this encounter
--- OUTSIDE RECORDS SUMMARY | 2024-09-11 10:58 | XMS_ITS | Encounter Summary ---
Author Organization [facility] [place] [address] Care Team Providers Care Service Technician Name Role Phone Poly Copeland MD Primary Care Provider [phone] Encounter Details Date Type Department Care Team (Latest Contact Info) Description 05/13/2017 11:00 AM EDT Clinical Support Hematology/Oncology at [address] [phone] [facility] [place] [address] Dietary counseling Social History Tobacco Use Types Packs/Day Years Used Date Smoking Tobacco: Former Smokeless Tobacco: Never Comments:quite 17 years ago Sex and Gender Information Value Date Recorded Sex Assigned at Not on file Gender Identity Female 10/25/2020 5:11 AM EST Sexual Orientation Not on file documented as of this encounter Progress Notes * Lorraine Tan RD - 05/13/2017 11:00 AM EDT [facility] Initial Dietitian Assessment Seen By: Deisi Tan, MS, RD, DAY TRADER, LD Referred by: Mary Duque APRN Reason [...] ?? B. 01/23/17 - Right hemicolectomy Path ([facility] review) - CONSULTATION CASE Outside slide(s) labeled [id number], collection date 01/23/2017. Ascending colon, cecum, terminal [...] Wt: Wt Readings from Last 3 Encounters: 05/10/17 96.8 kg (213 lb 6.4 oz) 04/29/17 97.1 kg (214 lb) 04/22/17 95.3 kg (210 lb) Wt Hx: UBW: [...] to see if this relieves her JACOBO. Nutrition Intervention: ? Increase caloric needs: reviewed [...] counseling documented in this encounter Care Teams Service Technician Relationship Specialty Start Date End Date Poly Copeland MD [address] [place] [address] PCP - General 09/15/10 documented as of this encounter
--- OUTSIDE RECORDS SUMMARY | 2024-09-11 10:58 | XMS_ITS | Encounter Summary ---
Author Organization [facility] [place] [address] Care Team Providers Care Cellophane Press Operator Name Role Phone Poly Copeland MD Primary Care Provider [phone] Encounter Details Date Type Department Care Team (Late st Contact Info) Description 04/08/2017 9:00 AM EDT Office Visit Hematology/Oncology at [address] [phone] Mary Duque, PCAS [address] [facility] [place] [place] [address] Malignant neoplasm of ascending colon Social History Tobacco Use Types Packs/Day Years Used Date Smoking Tobacco: Former Smokeless Tobacco: Never Sex and Gender Information Value Date Recorded Sex Assigned at Not on file Gender Identity Female 10/25/2020 5:11 AM EST Sexual Orientation Not on file documented as of this encounter Last Filed Vital Signs Vital Sign Reading Time Taken Comments Blood Pressure 151/69 04/08/2017 8:39 AM EDT Pulse 95 04/08/2017 8:39 AM EDT Temperature 36.8 ??C (98.2 ??F) 04/08/2017 8:39 AM ED T Respiratory Rate 16 04/08/2017 8:39 AM EDT Oxygen Saturation 100% 04/08/2017 8:39 AM EDT Inhaled Oxygen Concentration - - Weight 95.7 kg (211 lb) 04/08/2017 8:39 AM EDT Height 162 cm (5' 3.78) 04/08/2017 8:39 AM EDT Body Mass Index 36.47 04/08/2017 8:39 AM EDT documented in this encounter Progress Notes * Mary Duque, PCAS - 04/08/2017 9:00 AM EDT Subjective: Patient ID: Kelly Strickland [...] process. B. 01/23/17 - Right hemicolectomy Path ([facility] review) - CONSULTATION CASE Outside slide(s) labeled [id number], collection date 01/23/2017. 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 No further therapy 3. HTN 4. COPD 5. S/p cholecystectomy 4. S/p hysterectomy 5. S/p bilateral TKA HPI Ms. Strickland is seen for evaluation and management of stage IV colon cancer. The history is summarized above. On presentation today, she is alone. No fevers, chills or sweats. No pain. She had lost some weightbut has gained that back. Her energy level is good. Her activity is limited by LONG. She manages well at home. She did not have any trouble with nausea however had severe jaw pain when initiating eating. It has not affected her appetite however has been quite painful, lasting for several seconds with the first bite. She noted this was a problem up until yesterday. She also had a few days of mouth sores which were mild and self-limiting. She is using the baking soda salt water rinses effectively. Soc Hx: , lives alone in [place], [place] Tob - Quit 17 years ago Etoh - None [employer] Fam Hx: Father - at age 81, [...] postnasal drip, sinus pressure and trouble swallowing. Respiratory: Positive for shortness of breath. Cardiovascular: Negative. Gastrointestinal: Negative. Genitourinary: Negative. Musculoskeletal: Negative. Skin: Negative. Neurological: Positive for headaches (mild constant-started a few days after chemotherapy and is persistent through today). Hematological: Negative. Psychiatric/Behavioral: Negative. BP 151/69 (Patient Position: Sitting) Pulse 95 Temp 36.8 ??C (98.2 ??F) (Oral) Resp 16 Ht 162 cm (5' 3.78) Wt 95.7 kg (211 lb) SpO2 100% BMI 36.47 kg/m2 Wt Readings from Last 3 Encounters: 04/08/17 95.7 kg (211 lb) 03/30/17 95.3 kg (210 lb) 03/25/17 97.5 kg (215 lb) Objective: Physical Exam Constitutional: She is [...] tenderness. There is no guarding. Midline incision with small open areas in mid and inferior aspects. Packing in place in lower area.Both appear clean and without evidence of infection. Musculoskeletal: She exhibits no edema. Lymphadenopathy: She has no cervical adenopathy. She has no axillary adenopathy. Right: No supraclavicular adenopathy present. Left: No supraclavicular adenopathy present. Neurological: She is alert and oriented to person, place, and time. Coordination normal. Skin: Skin is warm and dry. No rash noted. Psychiatric: She has a normal mood and affect. Her behavior is normal. Vitals reviewed. Labs: 04/08/17 CBC: WBC 8.14 hemoglobin 11.2 platelets 245 CMP: Sodium 144 potassium 3.4 BUN 15 creatinine 1.0 glucose 123 calcium 8.4 total bili 0.18 AST 13 ALT 13 alkaline phosphatase 78 total protein 7.1 albumin 3.2 ONCBCN ONCOLOGY (AMB) 03/30/2017 Day, Cycle Day 1, Cycle 1 fluorouracil (ADRUCIL) IV 400 mg/m2/dose = 832 mg leucovorin IV 350 mg OXALIplatin (ELOXATIN) IV 85 mg/m2/dose = 177 mg ONCBCN ONCOLOGY (AMB) 03/30/2017 Day, Cycle fluorouracil (ADRUCIL) IV 2,400 mg/m2/dose = 4,992 mg leucovorin IV OXALIplatin (ELOXATIN) IV Assessment [...] in consultation with Dr. Del Toro we will plan to decrease her oxaliplatin dose by 50% and if she tolerates it then increase from [...] she is elderly and lives alone we would have to be very careful about dosing. With respect to her headaches, I will makes adjustments assuming that the premeds are responsible for the headaches-she had no trouble with nausea so I will reduce them and see howshe does. She'll return to clinic in 2 weeks for evaluation for cycle #3. I cautioned her regarding 5-FU and the need for sunscreen . She is scheduled for a colonoscopy on 04/[address] Caruso. Mary Duque, MSN, SUPERVISOR SANDBLASTER, AOCN Hematology/Oncology Nurse Practitioner [place], [place] [phone] documented in this encounter Plan of Treatment Not on file documented as of this encounter Procedures Procedure Name Priority Date/Time Associated Diagnosis Comments LAB SCAN 04/08/2017 12:00 AM EDT documented in this encounter Results * SCAN DOC: LAB (04/08/2017 12:00 AM EDT) Narrative 04/08/2017 12:00 AM EDT Ordered by an unspecified provider. Scanning Provider MEDIA MGR SCAN EXT O RDR/RSLT documented in this encounter Visit Diagnoses Diagnosis Malignant neoplasm of ascending colon documented in this encounter Care Teams Cellophane Press Operator Relationship Specialty Start Date End Date Poly Copeland MD [address] [place] [address] PCP - General 09/15/10 documented as of this encounter
--- OUTSIDE RECORDS SUMMARY | 2024-09-11 10:58 | XMS_ITS | Encounter Summary ---
Author Organization [facility] Address [facility] [place] [address] Care Team Providers Care Display And Banner Designer Name Role Phone Poly Copeland MD Primary Care Provider [phone] Encounter Details Date Type Department Care Team (Latest Contact Info) Description 01/18/2017 - 01/18/2017 11:59 PM EDT Hospital Encounter Radiology Library at [facility] [place] [address] Tucker Calle MD [facility] [place] [address] Screening breast examination Discharge Disposition: Home Social History Tobacco Use [...] Comments FILM LIBRARY STORAGE ONLY MAMMO Routine 01/18/2017 12:00 AM EDT Screening breast examination documented in this encounter Results * Film Library- Storage Only Mammo (01/18/2017 12:00 AM EDT) Narrative RAD - 01/28/2017 11:36 AM EDT This exam is for storage only and is auto-finalizing. Tucker Calle MD IMG FILM LIBRARY ORD ERABLES [place], [place] documented in this encounter Visit Diagnoses Diagnosis Screening breast examination Other screening breast examination documented in this encounter Care Teams Display And Banner Designer Relationship Specialty Start Date End Date Poly Copeland MD [address] [place] [address] PCP - General 09/15/10 documented as of this encounter
--- OUTSIDE RECORDS SUMMARY | 2024-09-11 10:58 | XMS_ITS | Encounter Summary ---
Author Organization [facility] [place] [address] Care Team Providers Care Automatic Spooler Operator Name Role Phone Poly Copeland MD Primary Care Provider [phone] Reason for Visit * Reason Onset Date Comments Follow-up 04/04/2017 Encounter Details Date Type Department Care Team (Late st Contact Info) Description 04/04/2017 Telephone Hematology/Oncology at [address] [address] Vidhi Hughes RN Follow-up Social History Tobacco Use Types Packs/Day Years Used Date Smoking Tobacco: Former Sex and Gender Information Value Date Recorded Sex Assigned at Not on file Gender Identity Female 10/25/2020 5:11 AM EST Sexual Orientation Not on file documented as of this encounter Miscellaneous Notes * Telephone Encounter - Vidhi Hughes RN - 04/04/2017 8:51 AM EDT Spoke with Jenn to see if she had anymore episodes of blood in her urine and she states she has not. She is still having some jaw pain when she takes her first bite of any food wether room temperature or hot. She states it was quite painful the first three days post chem. It is getting better. She is wondering what she can do for it. I told her it will continue to get better with time but willcome back with next treatment. She can try some tylenol to see if that helps. I told he I would update Dr. Del Toro on this issue. She also reports tiredness. I told her that is to be expected with first week of treatment and that would also get better. Pt knows she can call with any questions or conc erns. documented in this encounter Plan of Treatment Not on file documented as of this encounter Visit Diagnoses Not on filedocumented in this encounter Care Teams Automatic Spooler Operator Relationship Specialty Start Date End Date Poly Copeland MD [address] [place] [address] PCP - General 09/15/10 documented as of this encounter
--- OUTSIDE RECORDS SUMMARY | 2024-09-11 10:58 | XMS_ITS | Encounter Summary ---
Author Organization [facility] Address [facility] [place] [address] Care Team Providers Care President [place] Name Role Phone Poly Copeland MD Primary Care Provider [phone] Encounter Details Date Type Department Care Team (Latest Contact Info) Description 04/28/2017 - 04/28/2017 11:59 PM EDT Hospital Encounter Radiology Library at [facility] [place] [address] Raffi Del Toro MD [facility] [place] [address] Pain Discharge Disposition: Home Social History Tobacco Use Types Packs/Day Years Used Date Smoking Tobacco: Former Smokeless Tobacco: Never Sex and Gender Information Value Date Recorded Sex Assigned at Not on file Gender Identity Female 10/25/2020 5:11 AM EST Sexual Orientation Not on file documented as of this encounter Medications at Time of Discharge Medication Sig Dispensed Refills Start Date End Date acetaminophen (TYLENOL) 500 mg Tablet Take 1,000 [...] 300 mg (750 mg) Chew 09/30/2010 11/16/2019 prochlorperazine (COMPAZINE) 10 mg TabletIndications:Adalberto g-induced nausea [...] INHL) Inhale into the lungs daily. 03/02/2018 ACETAMINOPHEN/DP-HYDR AM HCL (TYLENOL PM ORAL) 09/30/2010 06/24/2017 documented as of this encounter Plan of Treatment Not on file documented as of this encounter Procedures Procedure Name Priority Date/Time Associated Diagnosis Comments FILM LIBRARY STORAGE ONLY MR HEAD Routine 04/28/2017 12:00 AM EDT Pain documented in this encounter Results * Film Library- Storage Only MR Head (04/28/2017 12:00 AM EDT) Narrative [facility] - 04/28/2017 8:53 PM EDT This exam is for storage only and is auto-finalizing. Raffi Del Toro MD IMG FILM LIBRARY ORD ERABLES Performing Organization Address City/State/[facility] Co de Phone Number [place], [place] documented in this encounter Visit Diagnoses Diagnosis Pain Generalized pain documented in this encounter Care Teams President [place] Relationship Specialty Start Date End Date Poly Copeland MD [address] [place] [address] PCP - General 09/15/10 documented as of this encounter
--- OUTSIDE RECORDS SUMMARY | 2024-09-11 10:58 | XMS_ITS | Encounter Summary ---
Author Organization [facility] [place] [address] Care Team Providers Care Mold Shop Supervisor Name Role Phone Poly Copeland MD Primary Care Provider [phone] Encounter Details Date Type Department Care Team (Latest Contact Info) Description 02/02/2017 - 02/02/2017 11:59 PM EDT Hospital Encounter Radiology Library at [facility] [place] [address] Art Guerra MD [facility] [place] [address] Pain Discharge Disposition: Home Social History Tobacco [...] Diagnosis Comments FILM LIBRARY STORAGE ONLY CT ABDOMEN AND PELVIS Routine 02/02/2017 12:00 AM EDT Pain documented in this encounter Results * Film Library- Storage Only CT Abdomen & Pelvis (02/02/2017 12:00 AM EDT) Narrative [facility] - 02/03/2017 7:31 AM EDT This exam is for storage only and is auto-finalizing. Art Guerra MD IMG FILM LIBRARY ORD ERABLES [place], [place] documented in this encounter Visit Diagnoses Diagnosis Pain Generalized pain documented in this encounter Care Teams Mold Shop Supervisor Relationship Specialty Start Date End Date Poly Copeland MD [address] [place] [address] PCP - General 09/15/10 documented as of this encounter
--- OUTSIDE RECORDS SUMMARY | 2024-09-11 10:58 | XMS_ITS | Encounter Summary ---
[place] [address] Care Team Providers Care Quality And Reliability Engineer Name Role Phone Poly Copeland MD Primary Care Provider [phone] Reason for Referral * Diagnostic Test (Routine) - Closed Specialty Diagnoses / Procedures Referred By Contac t Referred To Contact Radiology Diagnoses Abdominal abscess Procedures IR all drainage procedures [facility] [place] [address] [place] [address] Referral ID Status Reason Start Date Expiration Date V isits Requested Visits Authorized [id number] Closed Specialty Service Requested 02/03/2017 02/03/2018 1 1 Reason for Visit * Diagnostic Test (Routine) - Closed Specialty Diagnoses / Procedures Referred By Contac t Referred To Contact Radiology Diagnoses Abdominal abscess Procedures IR all drainage procedures [facility] [place] [address] [place] [address] Referral ID Status Reason Start Date Expiration Date V isits Requested Visits Authorized [id number] Closed Specialty Service Requested 02/03/2017 02/03/2018 1 1 Encounter Details Date Type Department Care Team (Latest Contact Info) Description 02/03/2017 11:38 AM EDT - 02/03/2017 11:59 PM EDT Hospital [place] [address] [facility] DR DIAGNOSTIC [place] [address] Abdominal abscess Discharge Disposition: Home Social History Tobacco Use Types Packs/Day Years Used Date Smoking Tobacco: Former Sex and Gender Information Value Date Recorded Sex Assigned at Not on file Gender Identity Female 10/25/2020 5:11 AM EST Sexual Orientation Not on file documented as of this encounter Last Filed Vital Signs Vital Sign Reading Time Taken Comments Blood Pressure 128/33 02/03/2017 2:10 PM EDT Pulse 82 02/03/2017 1:34 PM EDT Temperature 35.8 ??C (96.4 ??F) 02/03/2017 1:45 PM ED T Respiratory Rate 18 02/03/2017 2:10 PM EDT Oxygen Saturation 96% 02/03/2017 2:10 PM EDT Inhaled Oxygen Concentration - - Weight - - Height - - Body Mass Index - - documented in this encounter Discharge Instructions * Discharge Instructions* Juanita Gonzalez RN - 02/03/2017 1:23 PM EDT Images from the original note were not included. INTERVENTIONAL RADIOLOGY DRAIN CARE INSTRUCTIONS Drains help to keep fluid from collecting by removing the extra blood and fluid from under the skinor from an abscess within the body. A drain is temporary. It stays in place until the drainage has slowed down or stopped. Your Provider will decide when each drain should be removed. This is usuallyafter each drain has 30cc or less in 24 hours for 2-3 days in a row. You will then be scheduled for what is called a Sinogram to check and see if the fluid collection has gotten smaller. How do I care for the drains at home? Pin your drain/s to your clothing by using a safety pin through the plastic loop on the top of the bulb. If the drain is not attached to your clothing, it may pull out from under your skin. Also, a drain usually feels more comfortable when it???s attached. To care for the drain at home, you will have to empty the drain, ???strip?? the drain tubing, and change the dressing if applicable. * See the following pages for instructions on how to do this. What problems may I have with my drain? The bulb is not compressed- The bulb may not be squeezed tightly enough, the plug may not be closed securely, or the tube has slipped out a bit and is leaking. Follow the instructions on how to empty the drain. If the bulb remains expanded, then notify your doctor or nurse during business hours. ??? No drainage or sudden decrease in amount of drainage- This may be due to a plug in the drain. Please notify your doctor or nurse during business hours. ??? The tube accidentally falls out- If this happens, place a dry gauze dressing over the drain site and notify your doctor or nurse during business hours. ??? Increased redness, swelling, or heat around the tube insertion site- This may be a sign of infection. Take your temperature: if it is higher than 101F or 38.8C, call your doctor or nurse immediately. Otherwise, notify your doctor or nurse during business hours and keep the dressing clean and dry. How to Empty Your Drain Note: Wash your hands thoroughly before emptying your drain(s). Unpin the drain from your clothing. 1. Turn the white stopcock so it is not parallel (in line) with the tubing. 2. Unscrew the tubing with the bulb attached from stopcock. Make sure you keep everything clean. 3. Attach the syringe with sterile saline to the stopcock. 4. Inject saline per MD order, usually 3-5 cc's. 5. Re-attach the tubing with the bulb to the stopcock. 6. Invert the bulb and pull open the plug. 7. Have the plastic measuring cup from the hospital ready to collect and measure the drainage. Please measure the output at the same time every 24 hours and record the amount. 8. Turn the drain upside down and squeeze the contents of the bulb into the measuring cup. Be sure to empty the bulb as completely as possible. Flush the contents in the toilet. 9. Use the drain output log chart to record the amount of drainage twice a day or any time the bulbis full. Record the total for 24 hours for each drain you have. 10. If you have more than one drain, remember to record the drainage from each drain separately. 11. To prevent infection, do not let the stopper or top of the bottle touch the measuring cup or any other surface. 1. 2. Use one hand to squeeze all of the air from the drain. With the drain still squeezed, use your other hand to replace the top. This creates the suction necessary to remove the fluids from your body. 3. Pin the drain back on your clothing to avoid pulling it out accidently. 4. Wash your hands again. Remember to wash your hands before and after the procedure to reduce the risk of infection. Flushing the Drain: Your doctor may want the drain to be flushed once or twice daily to keep the fluid from plugging the drain. Flush the drain with 3-5 cc daily with the syringes supplied to you. When to call the Interventional Radiology Department: Please call with any questions or concerns. If it is during regular office hours, please call [phone]. If it is after regular office hours, or on weekends or holidays, please call [phone] and ask to speak to the Airframe And Power Plant Mechanic rural health consultant for Interventional Radiology. XXXX You have received medication during your procedure to help lesson anxiety and keep you comfortable. These medications affect judgement and reaction time. We recommend that you do not drive, operate equipment, sign any important documents, or smoke unattended for 24 hours following your procedure. Because of the sedation, be careful on stairs, as you may be unsteady on your feet. You may resume your regular diet as tolerated. IV site -- slight redness, or tenderness is normal, you can use a warm compress. If tenderness and redness increases or foul drainage occurs, please contact your M. D. Revised 11/07/15 Drainage Record NAME: Date of Surgery: Date: Time: If more than one drain, which one: Drainage Amount (per drain) Total Amount (per drain; in 24 hours) documented in this encounter Medications at Time of Discharge Medication Sig Dispensed Refills Start Date End Date Cholecalciferol, Vitamin D3, (VITAMIN D) 1,000 unit Cap 09/30/2010 Calcium Carbonate (TUMS) 300 mg (750 mg) Chew 09/30/2010 020 TIOTROPIUM BROMIDE (SPIRIVA WITH HANDIHALER INHL) Inhale into the lungs. 03/04/2017 ACETAMINOPHEN/DP-HYDRAM HCL (TYLENOL PM ORAL) 09/30/20102016 documented as of this encounter Progress Notes * Juanita Gonzalez RN - 02/03/2017 9:17 AM EDT ANGIO NURSING DATABASE Name: JOSE QUIÑONES Date of : 1940 AGE 76 y.o. [address]: [address] [place] [phone] (home) Mobile: Referring Provider: Gilmer Nunez REASON FOR VISIT: Low Molecular Weight Heparin Reason for exam and clinical history: Right jocelyn-abdomen abscess- Ordering Dr jesusita Caruso [facility] Exam/Procedure requested: Ultrasound guided abscess drain placement Does patient require sedation? IV (Assessment/plan from provider's note, bottom of workup) Copy/paste from provider's note (for all CT's) Assessment / Plan: 76 y.o. female is POD # 10 from jocelyn-colectomy secondary to obstructing mass, found to be Cancer. Pt was recovering well and then developed fever and chills, CT scan showed large air filled fluid collection, most likely representing an abscess. Plan for ultrasound guided drain placement. Pt to return to [facility] following procedure. ?? Prophylactic antibiotic: None Medications to hold: Lovenox Planned access site: right jocelyn-abdomen Position: supine Consent: pending arrival in Anticoagulant/antiplatelet/herbal med. stopped on per MD order. Allergies Allergen Reactions ??? Sulfa (Sulfonamide Antibiotics) CIS - mouth swells Pertinent PMH: Patient Active Problem List Diagnosis Code ??? 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 Date/Procedure Med's given/comments 02/03/17 RUQ abdominal drain (bonifacio-hepatic) Fentanyl 50 mcg IV, Versed 1 mg IV Laboratory Results: Medications: Prior to Admission medications Medication Sig Start Date End Date Taking? Authorizing Provider solifenacin (VESICARE) 5 mg tablet Take 5 mg by mouth daily. PROVIDER, HISTORICAL fluticasone-salmeterol (ADVAIR) 250-50 mcg/dose diskus inhaler Inhale 1 puff into the lungs 2 timesdaily. PROVIDER, HISTORICAL TIOTROPIUM BROMIDE (SPIRIVA WITH HANDIHALER INHL) Inhale into the lungs. PROVIDER, HISTORICAL Cholecalciferol, Vitamin D3, (VITAMIN D) 1,000 unit Cap 09/30/10 Calcium Carbonate (TUMS) 300 mg (750 mg) Chew 09/30/10 ACETAMINOPHEN/DP-HYDRAM HCL (TYLENOL PM ORAL) 09/30/10 * Rodrigue Borrero, WORM FARMER - 02/03/2017 9:05 AM EDT Images from the original note were not included. IR PRE-PROCEDURE NOTE Name: Jose Quiñones Date of : 1940 Referring Physician: Dr. Oc Caruso, [facility] Indication: Large abdominal abscess in right jocelyn-abdomen, POD # 10 following jocelyn-colectomy. Planned Procedure: Ultrasound guided drain placement Chief Complaint/HPI: 76 y.o. female is POD # 10 from jocelyn-colectomy secondary to obstructing mass, found to be Cancer. Pt was recovering well and then developed fever and chills, CT scan showed largeair filled fluid collection, most likely representing an abscess. IR consulted for ultrasound guided drain placement. Pt to return to [facility] following procedure. Patient Active Problem List Diagnosis Code ??? 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 Sulfa (Sulfonamide Antibiotics) CIS - mouth swells Labs: No results found for: WBC, ANC, HGB, HCT, PLATELET, INR, BUN, CREATININE Imagin02/02/2017 GEN: NAD CV: RRR No R/G/M PULM: CTA bilaterally ASA 3 MALLAMPATI 3 Assessment / Plan: 76 y.o. female is POD # 10 from jocelyn-colectomy secondary to obstructing mass, found to be Cancer. Pt was recovering well and then developed fever and chills, CT scan showed large air filled fluid collection, most likely representing an abscess. Plan for ultrasound guided drain placement. Pt to return to [facility] following procedure. Prophylactic antibiotic: None Medications to hold: Lovenox Planned access site: right jocelyn-abdomen Position: supine Consent: pending arrival in IR. Gilmer Nunez IR Fellow Pager# [phone] documented in this encounter Plan of Treatment Not on file documented as of this encounter Procedures Procedure Name Priority Date/Time Associated Diagnosis Comments IR ALL DRAINAGE PROCEDURES Routine 02/03/2017 1:46 PM EDT Abdominal abscess ANAEROBIC CULTURE Routine 02/03/2017 1:2 0 PM EDT BODY FLUID CULTURE, AEROBIC & ANAEROBIC Routine 02/03/2017 1:20 PM EDT BODY FLUID CULTURE, AEROBIC Routine 02/03/2017 1:20 PM EDT documented in this encounter Results * IR all drainage procedures (02/03/2017 1:46 PM EDT) Anatomical Region Laterality Modality X-Ray Angiograph y Narrative 02/03/2017 2:10 PM EDT INTERVENTIONAL RADIOLOGY PROCEDURE NOTE Procedure: US guided drain placement in perihepatic abscess Indication for Procedure: obstructing colon mass s/p resection with post-operative abscess, fevers, chills Consent: After discussing the risks (including infection, hemorrhage, damage to surrounding structures, respiratory depression) and benefits, the patient consented to the procedure. Method of Sedation: ??Due to the painful nature of the procedure, patient received split doses of intravenous fentanyl and versed from the IR nurse while pulse, pressure, and oxygen saturation were continuously monitored. 1% lidocaine was used for local analgesia. Technique: Prior to beginning the procedure, a standard time out Moment of Truth was performed to confirm all catherine aspects (including the patient's identity, informed consent, medical record number, allergies, planned procedure and laterality if appropriate) all of which were correct. The patient was positioned supine on the procedure table. ??A localizing ultrasound scan was performed. ??A site for drain placement was chosen and identified on the skin. ??The skin was marked and prepped. Maximum sterile barrier technique was used through out the procedure. Lidocaine was used for local anesthesia. An 18 ga needle was directed into right bonifacio-hepatic abscess the collection with ultrasound guidance. A guide wire was advanced through the needle in the collection. ??The access tract was dilated and a 10 Fr locking pigtail drainage catheter was placed in the collection. Purulent foul smelling fluid was aspirated. ?? Roughly 60 ccs of fluid was aspirated and the catheter connected to bulb suction drainage. ??Sample sent for gram stain and cultures. Medications: Lidocaine 1% <10 mL SQ, Versed 1 mg IV, Fentanyl ??50 mcg IV EBL: <5 cc Complications: ??No immediate Specimens: abdominal abscess fluid for GS&Cx Findings: Planning US showed a ~10 cm complex gas-containing bonifacio-hepatic fluid collection corresponding to the abscess present on recent CT. Intra-procedure US showed the needle and then drain in the targeted perihepatic abscess. Final US, after 60 mL purulent fluid removed showed the collection to be much smaller. Impression: Successful drain placement in bonifacio-hepatic abscess. Plan/Disposition: 1) To Angio recovery room, may transfer back to [facility] when meets criteria. 2) I spoke with the ordering provider, Dr. Caruso and he feels comfortable managing the drain. He will contact IR if he has any questions and the drain needs additional assessment. 3) Abdominal drain to bulb suction drainage 4) Monitor/Record output 5) Flush with 5mL normal saline QSHIFT 6) Routine dressing changes per RN protocol. 7) If output is less than 10 cc/day for 3 days, and symptoms have resolved, call for drain check (possible removal) 8) If output increases to over 50 cc / day, call for drain check (evaluate for fistula) 9) If symptoms (fever, white count) do not improve after 2-3 days, call for re-check ??(drain obstruction or incomplete drainage) Voicer(s): Resident/Fellow: ??none Attending: Audi Durbin MD Procedure/Teaching Attestation: I performed the procedure. Moderate Sedation Attestation: I was present during the intraservice time as documented by the IR nurse. Art Guerra MD IMG IR ORDERABLES * (ABNORMAL) Anaerobic Culture (02/03/2017 1:20 PM EDT) Anaerobic Culture Many Bacteroides fragilis(A) [facility] Organism Bacteroides fragilis(A) [facility] Fluid specimen (specimen) 02/03/2017 1:20 PM EDT 02/03/2017 2:11 PM EDT Comment:ABDOMINAL PERIHEPATI C ABCSESS. Narrative Resulting Agency Comment Spec In Lab Oc Harryen DO MICROBIOLOGY - GENER AL ORDERABLES [facility] [place] [address] * (ABNORMAL) Body fluid culture (02/03/2017 1:20 PM EDT) Body Fluid Culture Many Escherichia coli Rare mixed Gram Positive organisms (A) [facility] Gram Stain Few White Blood Cells seen Many Gram Negative Rods seen Few Gram Positive Rods seen (A) [facility] Organism Escherichia coli(A) [facility] Organism Gram Negative Rods(A) [facility] Organism Gram Positive Rods(A) [facility] Fluid specimen (specimen) 02/03/2017 1:20 PM EDT 02/03/2017 2:11 PM EDT Comment:ABDOMINAL PERIHEPATI C ABCSESS. Narrative Resulting Agency Comment Spec In Lab Organism Antibiotic Method Susceptibility Escherichia coli Amikacin MICROSCAN METHOD Sensitive Escherichia coli Ampicillin MICROSCAN METHOD Resistant Escherichia coli Ampicillin + Sulbactam MICROSCAN METH OD Resistant Escherichia coli Aztreonam MICROSCAN METHOD Sensitive Escherichia coli Cefazolin MICROSCAN METHOD Resistant Escherichia coli Cefepime MICROSCAN METHOD Sensitive Escherichia coli Ceftazidime MICROSCAN METHOD Sensitive Escherichia coli Ceftriaxone MICROSCAN METHOD Sensitive Escherichia coli Cefuroxime MICROSCAN METHOD Sensitive Escherichia coli Ciprofloxacin MICROSCAN METHOD Sensitive Escherichia coli Gentamicin MICROSCAN METHOD Resistant Escherichia coli Levofloxacin MICROSCAN METHOD Sensitive Escherichia coli Meropenem MICROSCAN METHOD Sensitive Escherichia coli Piperacillin/Tazobactam MICROSCAN MET HOD Intermediate Escherichia coli Tetracycline MICROSCAN METHOD Sensitive Escherichia coli Tigecycline MICROSCAN METHOD Sensitive Escherichia coli Tobramycin MICROSCAN METHOD Resistant Escherichia coli Trimethoprim/Sulfa MICROSCAN METHOD Sensitive Ocortega Caruso DO MICROBIOLOGY - GENER AL ORDERABLES [facility] [place] [address] documented in this encounter Visit Diagnoses Diagnosis Abdominal abscess Peritoneal abscess documented in this encounter Administered Medications Inactive Administered Medications - up to 3 most recent administrations Medication Order MAR Action Action Date Dose Rate Site fentaNYL 50 mcg/mL multi-dose injection 25-50 mcg, Intravenous, EVERY 5 MIN PRN, Starting on Ayesha 02/03/17 at 1149, Until Ayesha 02/03/17 at 1337, Pain, per unit protocol, - Start dose 50 mcg (reduce dose to 25 mcg if history of sedation sensitivity). - Titration dose 25-50 mcg IV, (based on patient response) every 3 minutes PRN, to maintain procedural pain less than 2 per pain Scale. Maximum dose: 50 mcg/dose, 250 mcg/hour For use in Interventional Radiology (IR) only for procedural sedation with direct provider supervision and verbal order., Angio/IR (Intra-Procedure), Routine Given 02/03/2017 1:19 PM EDT 25 mcg Given 02/03/2017 1:09 PM EDT 25 mcg lidocaine (XYLOCAINE) 10 mg/mL (1 %) injection 10 mg 10 mg, Subcutaneous, ONCE, 1 dose, On Ayesha 02/03/17 at 1215, For use in Interventional Radiology (IR) only for procedure with direct provider supervision and verbal order., Angio/IR (Intra-Procedure), Routine Given 02/03/2017 1:20 PM EDT 10 mg midazolam (PF) (VERSED) 1 mg/mL multi-dose injection 0.5-1 mg 0.5-1 mg, Intravenous, EVERY 3 MIN PRN, Starting on Ayesha 02/03/17 at 1149, Until Ayesha 02/03/17 at 1337, Sleep, - Start dose; 1 mg (Reduce dose to 0.5 mg if history of sedation sensitivity). - Titration dose: 0.5 mg - 1 mg (based on patient response) every 3 minutes PRN to obtain RASS score of -3. Maximum dose: 1 mg per dose, 5 mg/hour. For use in Interventional Radiology (IR) only for procedural sedation with direct provider supervision and verbal order., Angio/IR (Intra-Procedure), Routine Given 02/03/2017 1:19 PM EDT 0.5 mg Given 02/03/2017 1:09 PM EDT 0.5 mg documented in this encounter Care Teams Quality And Reliability Engineer Relationship Specialty Start Date End Date Poly Copeland MD [address] [facility] [address] [place] [address] PCP - General 09/15/10 documented as of this encounter
--- OUTSIDE RECORDS SUMMARY | 2024-09-11 10:58 | XMS_ITS | Encounter Summary ---
Author Organization [facility] Address [facility] [place] [address] Care Team Providers Care Checker Stocker Name Role Phone Poly Copeland MD Primary Care Provider [phone] Reason for Visit * Reason Comments IV Access pump disconnect * Treatment/Therapy Plan Authorization (Routine) - Closed Specialty Diagnoses / Procedures Referred By Contac t Referred To Contact Diagnoses Malignant neoplasm of ascending colon Raffi Del Toro MD [facility] [place] [address] Referral ID Status Reason Start Date Expiration Date Visits Re quested Visits Authorized [id number] Closed 03/04/2017 03/04/2018 1 1 Encounter Details Date Type Department Care Team (Late st Contact Info) Description 06/03/2017 3:30 PM EDT Infusion Hematology Oncology at [address] [address] Malignant neoplasm of ascending colon [...] Sign Reading Time Taken Comments Blood Pressure 153/90 06/03/2017 10:40 AM EDT Pulse 72 06/03/2017 10:40 AM EDT Temperature 36.5 ??C (97.7 ??F) 06/03/2017 10:40 AM E DT Respiratory Rate 18 06/03/2017 10:40 AM EDT Oxygen Saturation 99% 06/03/2017 10:40 AM EDT Inhaled Oxygen Concentration - - Weight - - Height - - Body Mass Index - - documented in this encounter Progress Notes * Ruth Mcdonald RN - 06/03/2017 3:30 PM EDT INFUSION THERAPY ADMINISTRATION NOTES DIAGNOSIS: colon cancer REASON FOR VISIT: Discontinue 5FU home infusion and deaccess mediport SUBJECTIVE Kelly Strickland reports continued headaches when receiving chemotherapy but they are tolerableand will continue with prednisone taper per neuro-oncology. OBJECTIVE VSS and weight stable. ASSESSMENT Kelly Strickland was awake, alert and she tolerated treatment well. Port flushed with 20cc NS [id number] units Heparin then de-accessed. PLAN Return to clinic per routine. documented [...] 500 Units, Intravenous, ONCE PRN, Starting on Tue06/03/17 at 1112, Until Tue06/03/17 at 1419, Line Care, Refer to Intravenous (IV) Procedure: Accessing Implanted Vascular Access Devices (654) procedure and/or Intravenous (IV) Job Aid: Adult Flushing & Catheter Care (7527) job aid for additional information regarding guidelines and administration., Routine Given 06/03/2017 11:15 AM EDT 500 Units sodium chloride 0.9 % flush 5-20 mL 5-20 mL, Intravenous, EVERY 1 MIN PRN, Starting on Tue06/03/17 at 1112, Until Tue06/03/17 at 1419, Line Care, Flush pertains to all indwelling lines. Flush per protocol found in the job aid using the link provided on this medication record. Refer to Intravenous (IV) Job Aid: Adult Flushing & Catheter Care (3489) job aid for additional information regarding guidelines and administration., Routine Given 06/03/2017 11:15 AM EDT 20 mLs documented in this encounter Care Teams Checker Stocker Relationship Specialty Start Date End Date Poly Copeland MD [address] [place] [address] [place] [address] PCP - General 09/15/10 documented as of this encounter
--- OUTSIDE RECORDS SUMMARY | 2024-09-11 10:58 | XMS_ITS | Encounter Summary ---
Author Organization Formerly [facility] Address [facility] [place] [address] Care Team Providers Care Furnace Repairer Helper Name Role Phone Poly Copeland MD Primary Care Provider [phone] Reason for Visit * Reason Comments IV Access 5FU pump disconnect * Treatment/Therapy Plan Authorization (Routine) - Closed Specialty Diagnoses / Procedures Referred By Contac t Referred To Contact Diagnoses Malignant neoplasm of ascending colon Raffi Del Toro MD [facility] [place] [address] Referral ID Status Reason Start Date Expiration Date Visits Re quested Visits Authorized [id number] Closed 03/04/2017 03/04/2018 1 1 Encounter Details Date Type Department Care Team (Late st Contact Info) Description 05/18/2017 12:30 PM EDT Infusion Hematology Oncology at [address] [phone] Malignant neoplasm of ascending colon Social History Tobacco Use Types Packs/Day Years Used Date Smoking Tobacco: Former Smokeless Tobacco: Never Comments:quite 17 years ago Sex and Gender Information Value Date Recorded Sex Assigned at Not on file Gender Identity Female 10/25/2020 5:11 AM EST Sexual Orientation Not on file documented as of this encounter Progress Notes * Naila Aylaa RN - 05/18/2017 12:30 PM EDT INFUSION THERAPY ADMINISTRATION NOTES DIAGNOSIS: colon cancer REASON FOR VISIT: Discontinue 5FU home infusion and deaccess mediport SUBJECTIVE Kelly Strickland denies any complaints OBJECTIVE REACTIONS (DESCRIPTION, TIME, INTERVENTION AND EFFECTIVENESS) none ASSESSMENT Kelly Strickland was awake, alert and she tolerated treatment well. Port flushed with 20cc NS [id number] units Heparin then de-accessed. PLAN Return to [...] 500 Units, Intravenous, ONCE PRN, Starting on Tue05/18/17 at 1101, Until Tue05/18/17 at 1309, Line Care, Refer to Intravenous (IV) Procedure: Accessing Implanted Vascular Access Devices (654) procedure and/or Intravenous (IV) Job Aid: Adult Flushing & Catheter Care (9822) job aid for additional information regarding guidelines and administration., Routine Given 05/18/2017 11:07 AM EDT 500 Units sodium chloride 0.9 % flush 5-20 mL 5-20 mL, Intravenous, EVERY 1 MIN PRN, Starting on Tue05/18/17 at 1101, Until Tue05/18/17 at 1309, Line Care, Flush pertains to all indwelling lines. Flush per protocol found in the job aid using the link provided on this medication record. Refer to Intravenous (IV) Job Aid: Adult Flushing & Catheter Care (3521) job aid for additional information regarding guidelines and administration., Routine Given 05/18/2017 11:07 AM EDT 20 mLs documented in this encounter Care Teams Furnace Repairer Helper Relationship Specialty Start Date End Date Poly Copeland MD [address] [place] [address] PCP - General 09/15/10 documented as of this encounter
--- OUTSIDE RECORDS SUMMARY | 2024-09-11 10:58 | XMS_ITS | Encounter Summary ---
Author Organization [facility] Address [facility] [place] [address] Care Team Providers Care Upper Leather Sorter Name Role Phone Poly Copeland MD Primary Care Provider Reason for Visit * Reason Comments IV Access pump disconnect * Treatment/Therapy Plan Authorization (Routine) - Closed Specialty Diagnoses / Procedures Referred By Contac t Referred To Contact Diagnoses Malignant neoplasm of ascending colon Raffi Del Toro MD [facility] [place] [address] Referral ID Status Reason Start Date Expiration Date Visits Re quested Visits Authorized [id number] Closed 03/04/2017 03/04/2018 1 1 Encounter Details Date Type Department Care Team (Late st Contact Info) Description 04/01/2017 1:00 PM EDT Infusion Hematology Oncology at [address] [phone] Malignant neoplasm of ascending colon Social History Tobacco Use Types Packs/Day Years Used Date Smoking Tobacco: Former Sex and Gender Information Value Date Recorded Sex Assigned at Not on file Gender Identity Female 10/25/2020 5:11 AM EST Sexual Orientation Not on file documented as of this encounter Last Filed Vital Signs Vital Sign Reading Time Taken Comments Blood Pressure 119/49 04/01/2017 10:20 AM EDT Pulse 72 04/01/2017 10:20 AM EDT Temperature 36.6 ??C (97.9 ??F) 04/01/2017 10:20 AM E DT Respiratory Rate 18 04/01/2017 10:20 AM EDT Oxygen Saturation 98% 04/01/2017 10:20 AM EDT Inhaled Oxygen Concentration - - Weight - - Height - - Body Mass Index - - documented in this encounter Progress Notes * Ruth Mcdonald RN - 04/01/2017 1:00 PM EDT INFUSION THERAPY ADMINISTRATION NOTES DIAGNOSIS: colon cancer REASON FOR VISIT: Discontinue 5FU home infusion and deaccess mediport SUBJECTIVE Kelly Strickland reports small amount of blood on poise pad and some on tissue after pericare. Ptreports no dysuria. Dr Del Toro made aware and ordered UA. UA shows trace blood and negative for everything else. Pt made and aware and will continue to monitor. She currently reports no further hematuria at this time. OBJECTIVE REACTIONS (DESCRIPTION, TIME, INTERVENTION AND EFFECTIVENESS) none ASSESSMENT Kelly Strickland was awake, alert and he tolerated treatment well. Port flushed with 20cc NS and 500 units Heparin then de-accessed. PLAN Return to clinic per routine. documented in this encounter Plan of Treatment Not on file documented as of this encounter Procedures Procedure Name Priority Date/Time Associated Diagnosis Comments LAB SCAN 04/01/2017 12:00 AM EDT documented in this encounter Results * SCAN DOC: LAB (04/01/2017 12:00 AM EDT) Narrative 04/01/2017 12:00 AM EDT Ordered by an unspecified [...] 500 Units, Intravenous, ONCE PRN, Starting on Tue04/01/17 at 1020, Until Tue04/01/17 at 1642, Line Care, Refer to Intravenous (IV) Procedure: Accessing Implanted Vascular Access Devices (364) procedure and/or Intravenous (IV) Job Aid: Adult Flushing & Catheter Care (3465) job aid for additional information regarding guidelines and administration., Routine Given 04/01/2017 10:30 AM EDT 500 Units sodium chloride 0.9 % flush 5-20 mL 5-20 mL, Intravenous, EVERY 1 MIN PRN, Starting on Tue04/01/17 at 1020, Until Tue04/01/17 at 1642, Line Care, Flush pertains to all indwelling lines. Flush per protocol found in the job aid using the link provided on this medication record. Refer to Intravenous (IV) Job Aid: Adult Flushing & Catheter Care (0392) job aid for additional information regarding guidelines and administration., Routine Given 04/01/2017 10:30 AM EDT 20 mLs documented in this encounter Care Teams Upper Leather Sorter Relationship Specialty Start Date End Date Poly Copeland MD [address] [facility] [place] [address] PCP - General 09/15/10 documented as of this encounter
--- OUTSIDE RECORDS SUMMARY | 2024-09-11 10:58 | XMS_ITS | Encounter Summary ---
Author Organization [facility] [place] [address] Care Team Providers Care Gas Examiner Name Role Phone Poly Copeland MD Primary Care Provider [phone] Encounter Details Date Type Department Care Team (Late st Contact Info) Description 03/14/2017 Telephone Hematology/Oncology at [address] [phone] Chip Rosas Social History Tobacco Use Types Packs/Day Years Used Date Smoking Tobacco: Former Sex and Gender Information Value Date Recorded Sex Assigned at Not on file Gender Identity Female 10/25/2020 5:11 AM EST Sexual Orientation Not on file documented as of this encounter Miscellaneous Notes * Telephone Encounter - Chip Rosas - 03/14/2017 10:12 AM EDT Called pt to inform her of her CT scan on Sunday 03/18 @ 1:45 with a port draw at 1:15. PT agreed. documented in this encounter Plan of Treatment Not on file documented as of this encounter Visit Diagnoses Not on filedocumented in this encounter Care Teams Gas Examiner Relationship Specialty Start Date End Date Poly Copeland MD [address] [place] [address] PCP - General 09/15/10 documented as of this encounter
--- OUTSIDE RECORDS SUMMARY | 2024-09-11 10:58 | XMS_ITS | Encounter Summary ---
Author Organization [facility] [place] [address] Care Team Providers Care Solution Spec Name Role Phone Poly Copeland MD Primary Care Provider [phone] Reason for Visit * Reason Onset Date Comments Follow-up 03/31/2017 1st chemo f/u ca ll Encounter Details Date Type Department Care Team (Late st Contact Info) Description 03/31/2017 Telephone Hematology/Oncology at [address] [phone] Ruth Mcdonald, RN Follow-up (1st chemo f/u call) Social History Tobacco Use Types Packs/Day Years Used Date Smoking Tobacco: Former Sex and Gender Information Value Date Recorded Sex Assigned at Not on file Gender Identity Female 10/25/2020 5:11 AM EST Sexual Orientation Not on file documented as of this encounter Miscellaneous Notes * Telephone Encounter - Ruth Mcdonald RN - 03/31/2017 12:27 PM EDT Post chemo call Placed call to patient to assess tolerance of first time chemotherapy treatment. Regimen received: Folfox Date of treatment: 03/30/17 Assessment: Symptom?? Present (yes[y]/no[n]/ stable[s] from baseline)?? Additional information/Assessment?? GI? Nausea?? N? Vomiting?? N ?? Nausea medication?? N ?? Tolerating diet?? Y ?? Maintaining fluid intake (indicate volume)?? Y ?? Bowel movements regular?? Y Regular BM this AM Diarrhea?? N Mouth sores?? N ?? General? Pain (0 none - 10 high)?? N Does report immense shooting jaw pain upon taking first bite of food but then resolves thereafter Using pain medications?? N Fever?? N ?? Neuro? Level of fatigue (0 - 5)?? N ?? Falls?? N ?? Numbness/tingling in arms/legs?? N ?? Cognitive changes?? N ?? Skin? Skin changes?? N ?? Pinpoint red dots?? N ?? Other s/s of bleeding?? N ?? IV site/VAD problems?? N Musculoskeletal? Joint swelling or tenderness?? N ?? Arthralgias or myalgias?? N ? Voiding problems?? N ?? Color and quality of urine?? Clear, yellow ?? Cardio-pulmonary? Shortness of breath?? N ?? Chest pain?? N ?? Swelling in legs?? N ?? Calf pain or tenderness?? N ?? Cough (productive/non-productive)?? N ?? Psychosocial? Coping?? Y ? Need prescription renewals? Other issues :??None reported at this time Education provided: ?? Plan:? 1. Report jaw pain to Dr Del Toro via this note. 2. Reinforced to patient/care-esl tutor to call facility 16/05 with any new/worsening signs and symptomsor concerns or questions.?? Phone number provided.?? Pt verbalized understanding and is in agreement with plan. ? documented in this encounter Plan of Treatment Not on file documented as of this encounter Visit Diagnoses Not on filedocumented in this encounter Care Teams Solution Spec Relationship Specialty Start Date End Date Poly Copeland MD [address] [place] [address] PCP - General 09/15/10 documented as of this encounter
--- OUTSIDE RECORDS SUMMARY | 2024-09-11 10:58 | XMS_ITS | Encounter Summary ---
Author Organization [facility] Address [facility] [place] [address] Care Team Providers Care Human Resources Analyst Name Role Phone Poly Copeland MD Primary Care Provider [phone] Reason for Visit * Reason Comments Chemotherapy Cycle 6 Day 1 Folfox * Treatment/Therapy Plan Authorization (Routine) - Closed Specialty Diagnoses / Procedures Referred By Contac t Referred To Contact Diagnoses Malignant neoplasm of ascending colon Raffi Del Toro MD [facility] [place] [address] Referral ID Status Reason Start Date Expiration Date Visits Re quested Visits Authorized [id number] Closed 03/04/2017 03/04/2018 1 1 Encounter Details Date Type Department Care Team (Late st Contact Info) Description 06/29/2017 10:00 AM EDT Infusion Hematology Oncology at [address] [phone] Malignant neoplasm of ascending colon [...] Sign Reading Time Taken Comments Blood Pressure 131/58 06/29/2017 10:00 AM EDT Pulse 85 06/29/2017 10:00 AM EDT Temperature 36.7 ??C (98.1 ??F) 06/29/2017 10:00 AM E DT Respiratory Rate 18 06/29/2017 10:00 AM EDT Oxygen Saturation 97% 06/29/2017 10:00 AM EDT Inhaled Oxygen Concentration - - Weight 98 kg (216 lb 0.8 oz) 06/29/2017 10:00 AM EDT Height 162 cm (5' 3.78) 06/29/2017 10:00 AM EDT copied Body Mass Index 37.34 06/29/2017 10:00 AM EDT documented in this encounter Progress Notes * Alise Fatima RN - 06/29/2017 10:00 AM EDT INFUSION THERAPY ADMINISTRATION NOTES DIAGNOSIS: Colon cancer CYCLE # 6 Day 1 REASON FOR VISIT: FOLFOX infusion and initiation of continunous home 5FU infusion via CADD pump provided by [employer] SUBJECTIVE Kelly offers no complaints. OBJECTIVE LAB DATA: WBC 7.08 Hgb10.9,Hct 34.3, ANC 3.49, plt 193 K 3.2 Creatinine 1.05 Pre administration: Chemotherapy orders independently verified for drug name, route, and dosage per patient's height, weight and BSA by [facility]. At time of administration Patient identity verified [...] was awake, alert and tolerated treatment well. Dr Del Toro notified of labs. Kcl 20 meq givenas ordered and prescription called to pharmacy by Dr. Del Toro PLAN Return to clinic Tuesday for disconnect. documented in this encounter Plan of Treatment Not on file documented as of this encounter Procedures Procedure Name Priority Date/Time Associated Diagnosis Comments LAB SCAN 06/29/2017 12:00 AM EDT documented in this encounter Results * SCAN DOC: LAB (06/29/2017 12:00 AM EDT) Narrative 06/29/2017 12:00 AM EDT Ordered by an unspecified [...] 10 mg, Oral, ONCE, 1 dose, On Tue06/29/17 at 1115, Administer prior to chemotherapy, Routine Given 06/29/2017 11:04 AM EDT 10 mg fluorouracil (ADRUCIL) 3,762 mg in sodium chloride 0.9% 138 mL chemo infusion 3,762 mg (1,800 mg/m2/dose ? 2.09 m2 Treatment Plan BSA from Recorded weight), Intravenous, ONCE, 1 dose, On Tue06/29/17 at 1345, Administer over 46 Hours, Warning Vesicant/Irritant Medication To be infused via an ambulatory infusion CADD Legacy Plus pump continuously IV at 3 mL/hr for 46 hours. Pump contains a 46 hour supply and provides a daily dose of 1200 mg/m2/day = 2400 mg/m2 IV over 46 hours with 12 mL of overfill in bag. Given 06/29/2017 2:02 PM EDT 3,762 mg 3 mL/hr fluorouracil (ADRUCIL) chemo injection 627 mg 627 mg (300 mg/m2/dose ? 2.09 m2 Treatment Plan BSA from Recorded weight), Intravenous, ONCE, 1 dose, On Tue06/29/17 at 1215, Administer over 5 Minutes Given 06/29/2017 1:54 PM EDT 627 mg 150.5 mL/hr leucovorin 350 mg in dextrose 5% 535 mL infusion 350 mg, Intravenous, ONCE, 1 dose, On Tue06/29/17 at 1215, Administer over 85 Minutes, May Y-site with OXALIplatin New Bag 06/29/2017 12:08 PM EDT 350 mg 377.6 mL/hr ondansetron (ZOFRAN) 8 mg in sodium chloride 0.9% 50 mL 8 mg, Intravenous, ONCE, 1 dose, On Tue06/29/17 at 1115, Administer over 15 Minutes New Bag 06/29/2017 11:36 AM EDT 8 mg 216 mL/hr OXALIplatin (ELOXATIN) 115 mg in dextrose 5% 273 mL chemo infusion 115 mg (rounded from 115.4725 mg = 55.25 mg/m2/dose ? 2.09 m2 Treatment Plan BSA from Recorded weight), Intravenous, ONCE, 1 dose, On Tue06/29/17 at 1215, Administer over 85 Minutes, Compatible with dextrose-containing solution only. Warning Vesicant/Irritant Medication New Bag 06/29/2017 12:13 PM EDT 115 mg 193 mL/hr potassium chloride (K-DUR/KLOR-CON) extended release tablet 20 mEq 20 mEq, Oral, ONCE, 1 dose, On Tue06/29/17 at 1130, Routine Given 06/29/2017 12:27 PM EDT 20 mEq documented in this encounter Care Teams Human Resources Analyst Relationship Specialty Start Date End Date Poly Copeland MD [address] [place] [address] [address] [facility] 1 [place] [address] PCP - General 09/15/10 documented as of this encounter
--- OUTSIDE RECORDS SUMMARY | 2024-09-11 10:58 | XMS_ITS | Encounter Summary ---
Author Organization [facility] Address [facility] [place] [address] Care Team Providers Care Multiple Drill Operator Name Role Phone Poly Copeland MD Primary Care Provider [phone] Reason for Visit * Reason Comments Chemotherapy Cycle 2, Day 1 -- Fo lfox * Treatment/Therapy Plan Authorization (Routine) - Closed Specialty Diagnoses / Procedures Referred By Contac t Referred To Contact Diagnoses Malignant neoplasm of ascending colon Raffi Del Toro MD [facility] [place] [address] Referral ID Status Reason Start Date Expiration Date Visits Re quested Visits Authorized [id number] Closed 03/04/2017 03/04/2018 1 1 Encounter Details Date Type Department Care Team (Late st Contact Info) Description 04/13/2017 9:00 AM EDT Infusion Hematology Oncology at [address] [phone] Malignant neoplasm of ascending colon [...] Sign Reading Time Taken Comments Blood Pressure 126/54 04/13/2017 8:41 AM EDT Pulse 66 04/13/2017 8:41 AM EDT Temperature 36.6 ??C (97.9 ??F) 04/13/2017 8:41 AM ED T Respiratory Rate 18 04/13/2017 8:41 AM EDT Oxygen Saturation 99% 04/13/2017 8:41 AM EDT Inhaled Oxygen Concentration - - Weight 94.8 kg (209 lb) 04/13/2017 8:40 AM EDT Height 162 cm (5' 3.78) 04/13/2017 8:41 AM EDT copied Body Mass Index 36.12 04/13/2017 8:40 AM EDT documented in this encounter Progress Notes * Mary Gradna RN - 04/13/2017 9:00 AM EDT INFUSION THERAPY ADMINISTRATION NOTES DIAGNOSIS: Colon cancer CYCLE #: Cycle 2, Day 1 -- Folfox REASON FOR VISIT: To receive chemotherapy SUBJECTIVE: Kelly feels well today and offers no complaints. OBJECTIVE: VSS, weight stable LAB DATA: WBC - 4.25, H/H - 11.2/36.1, Plt Ct - 214, ANC - 1.60, Lytes wnl, BUN/CR - 9/0.99 IV ACCESS: Port accessed off site. Flushes readily with brisk blood return. Pre administration: Chemotherapy orders independently verified for drug name, route, and dosage per patient's height, weight and BSA by Starla Granda RN and [facility]. REACTIONS (DESCRIPTION, TIME, INTERVENTION AND EFFECTIVENESS) none ASSESSMENT: Kelly was awake, alert and tolerated treatment well. CADD pump provided by [id number], pump was double checked by Starla Granda RN and José Luis Pritchett RN prior to connection. Pump was checked 15min after connection and 1 cc was infused. Patient was awake, alert and tolerated treatment well. PLAN Patient is aware to call clinic with any questions and concerns M-F 8am to 5pm and to call [employer] with any questions and concerns in the off hours. Return to clinic on Tuesday for disconnect. documented in this encounter Plan of Treatment Not on file documented as of this encounter Procedures Procedure Name Priority Date/Time Associated Diagnosis Comments LAB SCAN 04/13/2017 12:00 AM EDT documented in this encounter Results * SCAN DOC: LAB (04/13/2017 12:00 AM EDT) Narrative 04/13/2017 12:00 AM EDT Ordered by an unspecified [...] 10 mg, Oral, ONCE, 1 dose, On Tue04/13/17 at 0915, Administer prior to chemotherapy, Routine Given 04/13/2017 9:08 AM EDT 10 mg fluorouracil (ADRUCIL) 4,992 mg in sodium chloride 0.9% 138 mL chemo infusion 4,992 mg (2,400 mg/m2/dose ? 2.08 m2 Treatment Plan BSA from Recorded weight), Intravenous, ONCE, 1 dose, On Tue04/13/17 at 1145, Administer over 46 Hours, Warning Vesicant/Irritant Medication To be infused via an ambulatory infusion CADD Legacy Plus pump continuously IV at 3 mL/hr for 46 hours. Pump contains a 46 hour supply and provides a daily dose of 1200 mg/m2/day = 2400 mg/m2 IV over 46 hours with 12 mL of overfill in bag. Given 04/13/2017 12:11 PM EDT 4,992 mg 3 mL/hr fluorouracil (ADRUCIL) chemo injection 832 mg 832 mg (400 mg/m2/dose ? 2.08 m2 Treatment Plan BSA from Recorded weight), Intravenous, ONCE, 1 dose, On Tue04/13/17 at 1015, Administer over 5 Minutes Given 04/13/2017 12:04 PM EDT 832 mg 199.7 mL/hr leucovorin 350 mg in dextrose 5% 535 mL infusion 350 mg, Intravenous, ONCE, 1 dose, On Tue04/13/17 at 1015, Administer over 85 Minutes, May Y-site with OXALIplatin New Bag 04/13/2017 10:25 AM EDT 350 mg 378 mL/hr ondansetron (ZOFRAN) 8 mg in sodium chloride 0.9% 50 mL 8 mg, Intravenous, ONCE, 1 dose, On Tue04/13/17 at 0915, Administer over 15 Minutes Given 04/13/2017 9:21 AM EDT 8 mg 216 mL/hr OXALIplatin (ELOXATIN) 88 mg in dextrose 5% 267.6 mL chemo infusion 88 mg (rounded from 88.4 mg = 42.5 mg/m2/dose ? 2.08 m2 Treatment Plan BSA from Recorded weight), Intravenous, ONCE, 1 dose, On Tue04/13/17 at 1015, Administer over 85 Minutes, Compatible with dextrose-containing solution only. Warning Vesicant/Irritant Medication New Bag 04/13/2017 10:26 AM EDT 88 mg 189 mL/hr documented in this encounter Care Teams Multiple Drill Operator Relationship Specialty Start Date End Date Poly Copeland MD [facility] [address] [place] [address] PCP - General 09/15/10 documented as of this encounter
--- OUTSIDE RECORDS SUMMARY | 2024-09-11 10:58 | XMS_ITS | Encounter Summary ---
Author Organization [facility]ly [facility] Address [facility] [place] [address] Care Team Providers Care Briefcase Sewer Name Role Phone Poly Copeland MD Primary Care Provider [phone] Encounter Details Date Type Department Care Team (Latest Contact Info) Description 03/18/2017 - 03/18/2017 11:59 PM EDT Hospital Encounter Radiology Library at [facility] [place] [phone] Raffi Del Toro MD [facility] [place] [address] Pain Discharge Disposition: Home Social History Tobacco Use Types Packs/Day Years Used Date Smoking Tobacco: Former Sex and Gender Information Value Date Recorded Sex Assigned at Not on file Gender Identity Female 10/25/2020 5:11 AM EST Sexual Orientation Not on file documented as of this encounter Medications at Time of Discharge Medication Sig Dispensed Refills Start Date End Date omeprazole (PRILOSEC) 20 mg Capsule, Delayed Release(E.C.) Take 20 mg by mouth daily. hydroCHLOROthiazide (HYDRODIURIL) 25 mg Tablet Take 40 mg by mouth daily. Cholecalciferol, Vitamin D3, (VITAMIN D) 1,000 unit Cap 09/30/2010 Calcium Carbonate (TUMS) 300 mg (750 mg) Chew 09/30/2010 020 UMECLIDINIUM BROMIDE (INCRUSE ELLIPTA INHL) Inhale into the lungs daily. 03/02/2018 ACETAMINOPHEN/DP-HYDRAM HCL (TYLENOL PM ORAL) 09/30/20102016 documented as of this encounter Plan of Treatment Not on file documented as of this encounter Procedures Procedure Name Priority Date/Time Associated Diagnosis Comments CT SCAN (SCAN) 03/18/2017 12:00 AM EDT LAB SCAN 03/18/2017 12:00 AM EDT FILM LIBRARY STORAGE ONLY CT CHEST Routine 03/18/2017 12:00 AM EDT Pain documented in this encounter Results * Film Library- Storage Only CT Chest (03/18/2017 12:00 AM EDT) Narrative [facility] - 03/18/2017 5:16 PM EDT This exam is for storage only and is auto-finalizing. Raffi Del Toro MD IMG FILM LIBRARY ORD ERABLES [place], [place] * SCAN DOC: LAB (03/18/2017 12:00 AM EDT) Narrative 03/18/2017 12:00 AM EDT Ordered by an unspecified provider. Scanning Provider MEDIA MGR SCAN EXT O RDR/RSLT * SCAN DOC: CT SCAN (03/18/2017 12:00 AM EDT) Anatomical Region Laterality Modality SO Narrative 03/18/2017 12:00 AM EDT Ordered by an unspecified provider. Scanning Provider MEDIA MGR SCAN EXT O RDR/RSLT documented in this encounter Visit Diagnoses Diagnosis Pain Generalized pain documented in this encounter Care Teams Briefcase Sewer Relationship Specialty Start Date End Date Poly Copeland MD [address] [place] [address] PCP - General 09/15/10 documented as of this encounter
--- OUTSIDE RECORDS SUMMARY | 2024-09-11 10:58 | XMS_ITS | Encounter Summary ---
Author Organization [facility] Address [facility] [place] [address] Care Team Providers Care Landscaping Supervisor Name Role Phone Poly Copeland MD Primary Care Provider [phone] Reason for Visit * Reason Comments IV Access 5FU pump disconnect * Treatment/Therapy Plan Authorization (Routine) - Closed Specialty Diagnoses / Procedures Referred By Contac t Referred To Contact Diagnoses Malignant neoplasm of ascending colon Raffi Del Toro MD [facility] [place] [address] Referral ID Status Reason Start Date Expiration Date Visits Re quested Visits Authorized [id number] Closed 03/04/2017 03/04/2018 1 1 Encounter Details Date Type Department Care Team (Late st Contact Info) Description 06/17/2017 11:00 AM EDT Infusion Hematology Oncology at [address] [phone] Malignant neoplasm of ascending colon Social History Tobacco Use Types Packs/Day Years Used Date Smoking Tobacco: Former Smokeless Tobacco: Never Comments:quite 17 years ago Sex and Gender Information Value Date Recorded Sex Assigned at Not on file Gender Identity Female 10/25/2020 5:11 AM EST Sexual Orientation Not on file documented as of this encounter Progress Notes * Naila Ayala RN - 06/17/2017 11:00 AM EDT INFUSION THERAPY ADMINISTRATION NOTES DIAGNOSIS: [...] TIME, INTERVENTION AND EFFECTIVENESS) none ASSESSMENT Kelly Strickladn was awake, alert and he tolerated treatment [...] 500 Units, Intravenous, ONCE PRN, Starting on Tue06/17/17 at 1226, Until Tue06/17/17 at 1459, Line Care, Refer to Intravenous (IV) Procedure: Accessing Implanted Vascular Access Devices (654) procedure and/or Intravenous (IV) Job Aid: Adult Flushing & Catheter Care (6233) job aid for additional information regarding guidelines and administration., Routine Given 06/17/2017 12:45 PM EDT 500 Units sodium chloride 0.9 % flush 5-20 mL 5-20 mL, Intravenous, EVERY 1 MIN PRN, Starting on Tue06/17/17 at 1226, Until Tue06/17/17 at 1459, Line Care, Flush pertains to all indwelling lines. Flush per protocol found in the job aid using the link provided on this medication record. Refer to Intravenous (IV) Job Aid: Adult Flushing & Catheter Care (6408) job aid for additional information regarding guidelines and administration., Routine Given 06/17/2017 12:45 PM EDT 20 mLs documented in this encounter Care Teams Landscaping Supervisor Relationship Specialty Start Date End Date Poly Copeland MD [address] [place] [address] PCP - General 09/15/10 documented as of this encounter
--- OUTSIDE RECORDS SUMMARY | 2024-09-11 10:58 | XMS_ITS | Encounter Summary ---
Author Organization [facility] Address [facility] [place] [address] Care Team Providers Care Airline Lounge Receptionist Name Role Phone Poly Copeland MD Primary Care Provider [phone] Reason for Visit * Reason Comments Chemotherapy * Treatment/Therapy Plan Authorization (Routine) - Closed Specialty Diagnoses / Procedures Referred By Contac t Referred To Contact Diagnoses Malignant neoplasm of ascending colon Raffi Del Toro MD [facility] [place] [address] Referral ID Status Reason Start Date Expiration Date Visits Re quested Visits Authorized [id number] Closed 03/04/2017 03/04/2018 1 1 Encounter Details Date Type Department Care Team (Late st Contact Info) Description 05/16/2017 9:00 AM EDT Infusion Hematology Oncology at [address] [phone] Malignant neoplasm of ascending colon Social History [...] Sign Reading Time Taken Comments Blood Pressure 152/60 05/16/2017 9:02 AM EDT Pulse 78 05/16/2017 9:02 AM EDT Temperature 36.3 ??C (97.3 ??F) 05/16/2017 9:02 AM ED T Respiratory Rate 18 05/16/2017 9:02 AM EDT Oxygen Saturation 99% 05/16/2017 9:02 AM EDT Inhaled Oxygen Concentration - - Weight 96.8 kg (213 lb 8 oz) 05/16/2017 9:02 AM EDT Height 162 cm (5' 3.78) 05/16/2017 9:02 AM EDT copied Body Mass Index 36.9 05/16/2017 9:02 AM EDT documented in this encounter Progress Notes * Yahaira Hinton RN - 05/16/2017 9:00 AM EDT INFUSION THERAPY ADMINISTRATION NOTES DIAGNOSIS: Colon cancer CYCLE #: Cycle 3, Day 1 -- Folfox REASON FOR VISIT: To receive chemotherapy SUBJECTIVE: Kelly feels well today and offers no complaints. OBJECTIVE: VSS, weight stable IV ACCESS: Port accessed off site. Flushes with ease with positive blood return. O: Chemotherapy orders independently verified for correct drug name, route and dosage per patient'sheight, weight and BSA by Reed BENAVIDES and onsite pharmacist REACTIONS (DESCRIPTION, TIME, INTERVENTION AND EFFECTIVENESS) none ASSESSMENT: Kelly was awake, alert and tolerated treatment well. CADD pump provided by [employer], pump was double checked by KENNEDY Mcbride and Ariadna Valdez prior to connection. Pump was checked 15min [...] 10 mg, Oral, ONCE, 1 dose, On 05/16/17 at 1015, Administer prior to chemotherapy, Routine Given 05/16/2017 10:06 AM EDT 10 mg fluorouracil (ADRUCIL) 3,726 mg in sodium chloride 0.9% 138 mL chemo infusion 3,726 mg (1,800 mg/m2/dose ? 2.07 m2 Treatment Plan BSA from Recorded weight), Intravenous, ONCE, 1 dose, On Tue05/16/17 at 1245, Administer over 46 Hours, Warning Vesicant/Irritant Medication To be infused via an ambulatory infusion CADD Legacy Plus pump continuously IV at 3 mL/hr for 46 hours. Pump contains a 46 hour supply and provides a daily dose of 1200 mg/m2/day = 2400 mg/m2 IV over 46 hours with 12 mL of overfill in bag. Given 05/16/2017 1:25 PM EDT 3,726 mg 3 mL/hr fluorouracil (ADRUCIL) chemo injection 621 mg 621 mg (300 mg/m2/dose ? 2.07 m2 Treatment Plan BSA from Recorded weight), Intravenous, ONCE, 1 dose, On Tue05/16/17 at 1115, Administer over 5 Minutes Given 05/16/2017 1:20 PM EDT 621 mg 149 m L/hr leucovorin 350 mg in dextrose 5% 500 mL infusion 350 mg, Intravenous, ONCE, 1 dose, On Tue05/16/17 at 1115, Administer over 85 Minutes, May Y-site with OXALIplatin New Bag 05/16/2017 10:55 AM EDT 350 mg 353 mL/hr ondansetron (ZOFRAN) 8 mg in sodium chloride 0.9% 50 mL 8 mg, Intravenous, ONCE, 1 dose, On Tue05/16/17 at 1015, Administer over 15 Minutes Given 05/16/2017 10:15 AM EDT 8 mg 216 mL/hr OXALIplatin (ELOXATIN) 88 mg in dextrose 5% 267.6 mL chemo infusion 88 mg (rounded from 87.975 mg = 42.5 mg/m2/dose ? 2.07 m2 Treatment Plan BSA from Recorded weight), Intravenous, ONCE, 1 dose, On Tue05/16/17 at 1115, Administer over 85 Minutes, Compatible with dextrose-containing solution only. Warning Vesicant/Irritant Medication New Bag 05/16/2017 10:55 AM EDT 88 mg 189 mL/hr sodium chloride 0.9 % flush 5-20 mL 5-20 mL, Intravenous, EVERY 1 MIN PRN, Starting on Tue05/16/17 at 0950, Until Tue05/16/17 at 1740, Line Care, Flush pertains to all indwelling lines. Flush per protocol found in the job aid using the link provided on this medication record. Refer to Intravenous (IV) Job Aid: Adult Flushing & Catheter Care (9465) job aid for additional information regarding guidelines and administration., Routine Given 05/16/2017 9:00 AM EDT 20 mLs documented in this encounter Care Teams Airline Lounge Receptionist Relationship Specialty Start Date End Date Poly Copeland MD [address] [place] [address] [address] [place] [address] PCP - General 09/15/10 documented as of this encounter
--- OUTSIDE RECORDS SUMMARY | 2024-09-11 10:58 | XMS_ITS | Encounter Summary ---
Author Organization [facility] [place] [address] Care Team Providers Care Strategic Account Manager Name Role Phone Poly Copeland MD Primary Care Provider [phone] Encounter Details Date Type Department Care Team (Late st Contact Info) Description 05/03/2017 Telephone Hematology [place] [phone] Mary Duque APRN [address] [place] [address] [place] [address] Social History Tobacco Use Types Packs/Day Years Used Date Smoking Tobacco: Former Smokeless Tobacco: Never Sex and Gender Information Value Date Recorded Sex Assigned at Not on file Gender Identity Female 10/25/2020 5:11 AM EST Sexual Orientation Not on file documented as of this encounter Miscellaneous Notes * Telephone Encounter - Mary Duque APRN - 05/03/2017 10:13 AM EDT I called pt to [facility] on her visit with her head baggage porter. They found no explanation for her headache which currently persists. She is scheduled to see neuro-onc next Tuesday so I will plan to move our [facility] appt for this week to the following week to allow neuro-onc to weigh-in as to whether her h/a isor isn't related to oxaliplatin. Kelly is agreeable with the plan. Mary Duque, MSN, STEAM SHOVEL OPERATOR, AOCN Hematology/Oncology Nurse Practitioner [place], [place] [phone] documented in this encounter Plan of Treatment Not on file documented as of this encounter Visit Diagnoses Not on filedocumented in this encounter Care Teams Strategic Account Manager Relationship Specialty Start Date End Date Poly Copeland MD [address] [place] [address] PCP - General 09/15/10 documented as of this encounter
--- OUTSIDE RECORDS SUMMARY | 2024-09-11 10:58 | XMS_ITS | Encounter Summary ---
Author Organization [facility] Address [facility] [place] [address] Care Team Providers Care Orchard Hand Name Role Phone Poly Copeland MD Primary Care Provider Encounter Details Date Type Department Care Team (Late st Contact Info) Description 03/25/2017 1:00 PM EDT Office Visit Hematology/Oncology at [address] [phone] Raffi Del Toro MD [facility] [place] [address] Malignant neoplasm of ascending colon; Drug-induced nausea and vomiting Social History Tobacco Use Types Packs/Day Years Used Date Smoking Tobacco: Former Sex and Gender Information Value Date Recorded Sex Assigned at Not on file Gender Identity Female 10/25/2020 5:11 AM EST Sexual Orientation Not on file documented as of this encounter Last Filed Vital Signs Vital Sign Reading Time Taken Comments Blood Pressure 141/83 03/25/2017 12:50 PM EDT Pulse 93 03/25/2017 12:50 PM EDT Temperature 36.6 ??C (97.9 ??F) 03/25/2017 12:50 PM E DT Respiratory Rate 16 03/25/2017 12:50 PM EDT Oxygen Saturation 98% 03/25/2017 12:50 PM EDT Inhaled Oxygen Concentration - - Weight 97.5 kg (215 lb) 03/25/2017 12:50 PM EDT Height 162 cm (5' 3.78) 03/25/2017 12:50 PM EDT Body Mass Index 37.16 03/25/2017 12:50 PM EDT documented in this encounter Progress Notes * Raffi Del Toro MD - 03/25/2017 1:00 PM EDT Subjective: Patient ID: Kelly [...] process. B. 01/23/17 - Right hemicolectomy Path ([facility] review) - CONSULTATION CASE Outside slide(s) labeled [id number], collection date 01/23/2017. Ascending colon, cecum, terminal [...] summarized above. On presentation today, she is accompanied by her son JORGE. She had a mediport placed a couple of weeks ago by Dr. Caruso. She has some pain and swelling which does seem to be improving with time but isnot gone. No swelling of the arm on that side (the left). Denies fevers or chills. The port was accessed for lab draw today and worked well. is anxious but physically feeling well. She is recovering well from the surgery. The incision is healing pretty well. She has two open areas which have improved. The bonifacio-hepatic abscess drain that she had placed has been removed. She has been off of antibiotics for over two weeks. No fevers, chills or sweats. No pain. Her appetite is too good. She had lost some weight but has gained that back. Her energy level is good. Her activity is limited by LONG. She is not very physically active but spends a lot of time knitting. She manages well at home. 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 Labs: WBC/ANC - 7., Hgb/Hct - 11.4/38.1, Plts - 302,000. BUN/Cr -15/0.93. Lytes and LFTs unremarkable. Assessment and Plan: Ms. 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 I had asked that BRAF testing to be done for further analysis of this and I confirmed with pathology that that result is pending. If a BRAF mutation is present, this would suggest that this is acquired, related to hypermethylation. If a BRAF mutation is not present, then germline testing should be done for Renteria syndrome. This would have important implications for family members. ?? The finding of MMR deficiency also has implications for the choice of adjuvant therapy as this finding has been found to confer relative resistance to fluoropyrimidines alone. However, the efficacy of oxaliplatin based therapy appears to be retained. Therefore, although we would often consider capecitabine or Fluorouracil alone for a patient in this age group, I recommended Folfox in her case. Oleg reviewed the schedule and potential side effects and she is in agreement with proceeding. She is scheduled to begin treatment on 03/30/17. We will see her in two weeks. She is scheduled for a colonoscopy on 04/[address] Caruso. documented in this encounter Plan of Treatment Not on file documented as of this encounter Procedures Procedure Name Priority Date/Time Associated Diagnosis Comments LAB SCAN 03/28/2017 12:00 AM EDT documented in this encounter Results * SCAN DOC: LAB (03/28/2017 12:00 AM EDT) Narrative 03/28/2017 12:00 AM EDT Ordered by an unspecified provider. Scanning Provider MEDIA MGR SCAN EXT O RDR/RSLT documented in this encounter Visit Diagnoses Diagnosis Malignant neoplasm of ascending colon Drug-induced nausea and vomiting Nausea with vomiting documented in this encounter Care Teams Orchard Hand Relationship Specialty Start Date End Date Poly Copeland MD [address] [place] [address] [address] [facility] [address] [place] [address] PCP - General 09/15/10 documented as of this encounter
--- OUTSIDE RECORDS SUMMARY | 2024-09-11 10:58 | XMS_ITS | Encounter Summary ---
Author Organization [facility] Address [facility] [place] [address] Care Team Providers Care Electromechanical Equipment Tester Name Role Phone Poly Copeland MD Primary Care Provider [phone] Reason for Visit * Reason Comments Chemotherapy * Treatment/Therapy Plan Authorization (Routine) - Closed Specialty Diagnoses / Procedures Referred By Contac t Referred To Contact Diagnoses Malignant neoplasm of ascending colon Raffi Del Toro MD [facility] [place] [address] Referral ID Status Reason Start Date Expiration Date Visits Re quested Visits Authorized [id number] Closed 03/04/2017 03/04/2018 1 1 Encounter Details Date Type Department Care Team (Late st Contact Info) Description 04/15/2017 1:30 PM EDT Infusion Hematology Oncology at [address] [phone] Malignant neoplasm of ascending colon Social History Tobacco Use Types Packs/Day Years Used Date Smoking Tobacco: Former Smokeless Tobacco: Never Sex and Gender Information Value Date Recorded Sex Assigned at Not on file Gender Identity Female 10/25/2020 5:11 AM EST Sexual Orientation Not on file documented as of this encounter Last Filed Vital Signs Vital Sign Reading Time Taken Comments Blood Pressure 140/57 04/15/2017 9:51 AM EDT Pulse 60 04/15/2017 9:51 AM EDT Temperature 36.5 ??C (97.7 ??F) 04/15/2017 9:51 AM ED T Respiratory Rate 18 04/15/2017 9:51 AM EDT Oxygen Saturation 97% 04/15/2017 9:51 AM EDT Inhaled Oxygen Concentration - - Weight - - Height - - Body Mass Index - - documented in this encounter Progress Notes * Alise Fatima RN - 04/15/2017 1:30 PM EDT INFUSION THERAPY ADMINISTRATION NOTES DIAGNOSIS: colon cancer REASON FOR VISIT: Discontinue 5FU home infusion and deaccess mediport SUBJECTIVE Kelly Strickland denies any complaints OBJECTIVE REACTIONS (DESCRIPTION, TIME, INTERVENTION AND EFFECTIVENESS) none ASSESSMENT Kelly Strickland was awake, alert and she tolerated treatment well. Port flushed with 20cc NS [id number] units Heparin then de-accessed. PLAN Return to [...] 500 Units, Intravenous, ONCE PRN, Starting on Tue04/15/17 at 0950, Until Tue04/15/17 at 1316, Line Care, Refer to Intravenous (IV) Procedure: Accessing Implanted Vascular Access Devices (654) procedure and/or Intravenous (IV) Job Aid: Adult Flushing & Catheter Care (7441) job aid for additional information regarding guidelines and administration., Routine Given 04/15/2017 10:00 AM EDT 500 Units sodium chloride 0.9 % flush 5-20 mL 5-20 mL, Intravenous, EVERY 1 MIN PRN, Starting on Tue04/15/17 at 0950, Until Tue04/15/17 at 1316, Line Care, Flush pertains to all indwelling lines. Flush per protocol found in the job aid using the link provided on this medication record. Refer to Intravenous (IV) Job Aid: Adult Flushing & Catheter Care (8757) job aid for additional information regarding guidelines and administration., Routine Given 04/15/2017 10:00 AM EDT 20 mLs documented in this encounter Care Teams Electromechanical Equipment Tester Relationship Specialty Start Date End Date Poly Copeland MD [address] [place] [address] PCP - General 09/15/10 documented as of this encounter
--- OUTSIDE RECORDS SUMMARY | 2024-09-11 10:58 | XMS_ITS | Encounter Summary ---
Author Organization [facility] [place] [address] Care Team Providers Care Draw Furnace Tender Name Role Phone Poly Copeland MD Primary Care Provider [phone] Encounter Details Date Type Department Care Team (Late st Contact Info) Description 06/24/2017 9:00 AM EDT Office Visit Hematology/Oncology at [address] [phone] Raffi Del Toro MD [facility] [place] [address] Malignant neoplasm of ascending colon Social History [...] Sign Reading Time Taken Comments Blood Pressure 136/64 06/24/2017 8:23 AM EDT Pulse 91 06/24/2017 8:23 AM EDT Temperature - - Respiratory Rate 16 06/24/2017 8:23 AM EDT Oxygen Saturation 98% 06/24/2017 8:23 AM EDT Inhaled Oxygen Concentration - - Weight 97.1 kg (214 lb) 06/24/2017 8:23 AM EDT Height 162 cm (5' 3.78) 06/24/2017 8:23 AM EDT Body Mass Index 36.99 06/24/2017 8:23 AM EDT documented in this encounter Progress Notes * Raffi Del Toro MD - 06/24/2017 9:00 AM EDT Subjective: Patient ID: Kelly [...] process. B. 01/23/17 - Right hemicolectomy Path ([facility] [place]) - CONSULTATION CASE Outside slide(s) labeled [id number], collection date 01/23/2017. Ascending colon, cecum, terminal [...] Adjuvant therapy with Folfox started 03/30/17, s/p 5 cycles Oxaliplatin dose reduced for cycle 2 [...] per day. On presentation today, she is accompanied by her great grandson Jacob. She feels well other than the headache. She says she has gotten used to the headaches. There is a constant level of headache that is often in just in the background and is manageable. However, at other times it is worse and there is not a clear pattern to this in terms of time of day or exacerbating factors. She thinks the more severe pain is becoming less often. When the pain is bad she takes the naproxen and this helps.She takes this about twice a week. She does have the jaw pain after the chemotherapy which is felt to be related to the oxaliplatin. This has been better with the dose reduction and is manageable. 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 She is eating well and her weight is stable. Her energy level is great. Her activity is limited by LONG. No visual changes. Soc Hx: , lives alone in [place], [place] Tob - Quit 17 years ago Etoh - None Works [employer] Fam Hx: Father - at age 81, [...] Positive for headaches. Hematological: Negative. Psychiatric/Behavioral: Negative. Objective: Physical [...] reviewed. Labs: WBC/ANC - 8., Hgb/Hct - 11.7/35.8, Plts - 212,000. BUN/Cr -15/0.95. K - 3.3, Alb - 3.1. Lytes and LFTs o/w [...] adjuvant therapy with Folfox and has received 5 cycles. Cycle 1 was complicated by severe [...] Oncology on 05/10, please see above. She has elected to continue with the chemotherapy. Overall she feels that she is tolerating this well. The headaches persist but are manageable. We talked today about adding Valproic acid, 250 mg bid (based on discussion between Mary Duque APRN and Dr. Rauschkolb) but the patient feels she is managing well with the amitryptyline nad naproxen and does not want to add a new medication. She will receive cycle 6 on 06/29 and we will see her again in two weeks. documented in this encounter Plan of Treatment Not on file documented as of this encounter Visit Diagnoses Diagnosis Malignant neoplasm of ascending colon documented in this encounter Care Teams Draw Furnace Tender Relationship Specialty Start Date End Date Poly Copeland MD [address] [place] [address] PCP - General 09/15/10 documented as of this encounter
--- OUTSIDE RECORDS SUMMARY | 2024-09-11 10:58 | XMS_ITS | Encounter Summary ---
[place] [address] Care Team Providers Care Traffic Rate Clerk Name Role Phone Poly Copeland MD Primary Care Provider [phone] Reason for Referral * Diagnostic Test (Routine) - Closed Specialty Diagnoses / Procedures Referred By Contgail t Referred To Contact Radiology Diagnoses Abdominal abscess Procedures IR all drainage procedures Gilmer Nunez [facility] [place] [address] [place] [address] Referral ID Status Reason Start Date Expiration Date V isits Requested Visits Authorized [id number] Closed Specialty Service Requested 02/03/2017 02/03/2018 1 1 Encounter Details Date Type Department Care Team (Late st Contact Info) Description 02/03/2017 [place] [phone] Gilmer Nunez [facility] [place] [address] Abdominal abscess Social History Tobacco Use Types Packs/Day Years Used Date Smoking Tobacco: Former Sex and Gender Information Value Date Recorded Sex Assigned at Not on file Gender Identity Female 10/25/2020 5:11 AM EST Sexual Orientation Not on file documented as of this encounter Plan of Treatment Not on file documented as of this encounter Results * IR all drainage [...] Angio recovery room, may transfer back to [facility] when meets criteria. 2) I spoke with [...] for re-check ??(drain obstruction or incomplete drainage) Order Builder Loader(s): Resident/Fellow: ??none Attending: Audi Durbin MD Procedure/Teaching Attestation: I performed the procedure. Moderate Sedation Attestation: I was present during the intraservice time as documented by the IR nurse. Art Guerra MD IMG IR ORDERABLES documented in this encounter Visit Diagnoses Diagnosis Abdominal abscess Peritoneal abscess Abdominal abscess Peritoneal abscess documented in this encounter Care Teams Traffic Rate Clerk Relationship Specialty Start Date End Date Poly Copeland MD [address] [place] [address] PCP - General 09/15/10 documented as of this encounter
--- OUTSIDE RECORDS SUMMARY | 2024-09-11 10:58 | XMS_ITS | Encounter Summary ---
Author Organization [facility] [place] [address] Care Team Providers Care Business Intelligence Administrator Name Role Phone Poly Copeland MD Primary Care Provider [phone] Encounter Details Date Type Department Care Team (Late st Contact Info) Description 05/27/2017 9:00 AM EDT Office Visit Hematology/Oncology at [address] [address] Mary Duque, GRAPHIC DESIGN ASSISTANT [address] [facility] [place] [address] Malignant neoplasm of ascending colon; Headache, chronic daily Social History Tobacco Use Types Packs/Day Years Used Date Smoking Tobacco: Former Smokeless Tobacco: Never Comments:quite 17 years ago Sex and Gender Information Value Date Recorded Sex Assigned at Not on file Gender Identity Female 10/25/2020 5:11 AM EST Sexual Orientation Not on file documented as of this encounter Last Filed Vital Signs Vital Sign Reading Time Taken Comments Blood Pressure 138/57 05/27/2017 8:25 AM EDT Pulse 71 05/27/2017 8:25 AM EDT Temperature 36.6 ??C (97.9 ??F) 05/27/2017 8:25 AM ED T Respiratory Rate 16 05/27/2017 8:25 AM EDT Oxygen Saturation 98% 05/27/2017 8:25 AM EDT Inhaled Oxygen Concentration - - Weight 97.3 kg (214 lb 9.6 oz) 05/27/2017 8:25 A M EDT Height 162 cm (5' 3.78) 05/27/2017 8:25 AM EDT Body Mass Index 37.09 05/27/2017 8:25 AM EDT documented in this encounter Progress Notes * Dunia Mary A, GRAPHIC DESIGN ASSISTANT - 05/27/2017 9:00 AM EDT Subjective: Patient ID: Kelly [...] process. B. 01/23/17 - Right hemicolectomy Path ([facility]) - CONSULTATION CASE Outside slide(s) labeled [id number], collection date 01/23/2017. Ascending colon, cecum, terminal [...] for amytriptyline and naproxen. On presentation today, L arm is a little tingly. Still having h/a, today 06/02. She reports no issues with cold neuropathy. With respect to her headaches she noted that the Tuesday after her disconnect on day 4 she woke up and had no headache whatsoever which is the first time since starting treatment that she has been without a headache. On Tuesday she woke up and had an extremely bad headache that was not responsive to the Naprosyn for the entire day. This subsequently resolved Tuesday back to her baseline. On Tuesday day 7 she again had another day of no headaches followed again by another very bad day on Tuesday. Currently her headaches have lobe without back to their baseline and are responsive to Naprosyn. She notes no association with any environmental factors. The only change she has noted is that the community has been high and her breathing has been harder recently. She's had no issues with other symptoms and remains afebrile and otherwise well. She very clearly states that if she had to choose between her cancer coming back and the headaches, she would choose to have the headaches so she is determined to be as aggressive as possible with chemotherapy. Soc Hx: , lives alone in [place], [place] Tob - Quit 17 years ago Etoh - None Works [employer] Fam Hx: Father - at age 81, [...] for headaches. Hematological: Negative. Psychiatric/Behavioral: Negative. BP 138/57 (BP Location (NBP): Left arm) Pulse 71 Temp 36.6 ??C (97.9 ??F) (Oral) Resp 16 Ht162 cm (5' 3.78) Wt 97.3 kg (214 lb 9.6 oz) SpO2 98% BMI 37.09 kg/m2 Wt Readings from Last 3 Encounters: 05/27/17 97.3 kg (214 lb 9.6 oz) 05/16/17 96.8 kg (213 lb 8 oz) 05/13/17 95.3 kg (210 lb) Objective: Physical Exam Constitutional: She is [...] Her behavior is normal. Vitals reviewed. Labs: 05/27/17 CBC: WBC 6.18 hemoglobin 11.8 platelets 2:15 Sodium 146 potassium 4.0 BUN 12 creatinine 1.12 glucose 112 calcium 8.8 total bili 0.31 AST exchange ALT 18 alkaline phosphatase 73 total protein 6.9 albumin 3.3 CEA is pending ONCBCN ONCOLOGY (AMB) 03/30/2017 [...] IV OXALIplatin (ELOXATIN) IV ONCBCN ONCOLOGY (AMB) 05/16/2017 Day, Cycle Day 1, Cycle 3 fluorouracil (ADRUCIL) IV 300 mg/m2/dose = 621 mg leucovorin IV 350 mg OXALIplatin (ELOXATIN) IV 42.5 mg/m2/dose = 88 mg ONCBCN ONCOLOGY (AMB) 05/16/2017 Day, Cycle fluorouracil (ADRUCIL) IV 1,800 mg/m2/dose = 3,726 mg leucovorin IV OXALIplatin (ELOXATIN) IV Assessment and Plan: Ms. Strickland is a 77 yo female diagnosed with adenocarcinoma of the ascending colon in early 02/07 after presenting with abdominal pain, nausea and vomiting. On 01/23/17 she underwent a right hemicolectomy. The pathology report is above, high grade adenocarcinoma with 11/06 LN's involved, margin negative. CT shows no [...] to continue to 6 cycles at least. In addition, per Dr. Ambrose, we will increase amitriptyline from 10 mg to 25 mg and add a rapid taper of high-dose prednisone, starting at 60 mg and decreasing every 2 days by 20 mg. I have given her prescription for both of these today. She will return to clinic in 2 weeks for reevaluation. She knows to call for any worsening symptoms or other bothersome issues. Mary Duque, MSN, RUBY DEVELOPER, AOCN Hematology/Oncology Nurse Practitioner [place], [place] [phone] documented in this encounter Plan of Treatment Not on file documented as of this encounter Visit Diagnoses Diagnosis Malignant neoplasm of ascending colon Headache, chronic daily Headache documented in this encounter Care Teams Business Intelligence Administrator Relationship Specialty Start Date End Date Poly Copeland MD [address] [place] [address] PCP - General 09/15/10 documented as of this encounter
--- OUTSIDE RECORDS SUMMARY | 2024-09-11 10:58 | XMS_ITS | Encounter Summary ---
Author Organization [facility] [place] [address] Care Team Providers Care Client Advocate Name Role Phone Poly Copeland MD Primary Care Provider [phone] Encounter Details Date Type Department Care Team (Latest Contact Info) Description 02/22/2017 - 02/22/2017 11:59 PM EDT Hospital Encounter Radiology Library at [facility], [place] [address] Landry Ng MD [facility] HEMATOLOGY [place] [address] Pain Discharge Disposition: Home Social History Tobacco [...] FILM LIBRARY STORAGE ONLY DX ABDOMEN STAT 02/22/2017 12:00 AM EDT Pain documented in this encounter Results * Film Library- Storage Only DX Abdomen (02/22/2017 12:00 AM EDT) Narrative [facility] - 02/22/2017 10:29 AM EDT This exam is for storage only and is auto-finalizing. Landry Ng MD IMG FILM LIBRARY ORD ERABLES Performing Organization Address City/State/[facility] Co de Phone Number [place], [place] documented in this encounter Visit Diagnoses Diagnosis Pain Generalized pain documented in this encounter Care Teams Client Advocate Relationship Specialty Start Date End Date Poly Copeland MD [address] [place] [address] PCP - General 09/15/10 documented as of this encounter
--- OUTSIDE RECORDS SUMMARY | 2024-09-11 10:58 | XMS_ITS | Encounter Summary ---
Author Organization [facility] [place] [address] Care Team Providers Care Poultry Buyer Name Role Phone Poly Copeland MD Primary Care Provider [phone] Reason for Visit * Reason Comments Schedule Office Case * Consultation (Routine) - Closed Specialty Diagnoses / Procedures Referred By Contac t Referred To Contact Hematology and Oncology Diagnoses Malignant neoplasm of ascending colon Carcinoma in situ of breast, unspecified laterality, unspecified type Mary Duque, SCIENCE INTERN [address] [place] [address] [facility] [address] [place] [address] Referral ID Status Reason Start Date Expiration Date V isits Requested Visits Authorized [id number] Closed Consult, Test & Treat 04/29/2017 04/29/2018 1 1 Encounter Details Date Type Department Care Team (Late st Contact Info) Description 05/10/2017 10:30 AM EDT Office Visit [place]ology [place] [address] Yanely Ambrose, [facility] [place] [address] Headache, chronic daily Social History Tobacco Use [...] Sign Reading Time Taken Comments Blood Pressure 134/60 05/10/2017 10:12 AM EDT Pulse 66 05/10/2017 10:12 AM EDT Temperature 36.6 ??C (97.9 ??F) 05/10/2017 10:12 AM E DT Respiratory Rate 18 05/10/2017 10:12 AM EDT Oxygen Saturation 99% 05/10/2017 10:12 AM EDT Inhaled Oxygen Concentration - - Weight 96.8 kg (213 lb 6.4 oz) 05/10/2017 10:12 AM EDT Height 162 cm (5' 3.78) 05/10/2017 10:12 AM EDT Body Mass Index 36.88 05/10/2017 10:12 AM EDT documented in this encounter Progress Notes * Yanely Ambrose, - 05/10/2017 10:30 AM EDT Images from the original note were not included. NEURO-ONCOLOGY CLINIC [place] [id number] NEURO-ONCOLOGY CONSULTATION Date of service: 05/10/17 Reason for Consultation: We are seeing Kelly Strickland at the request of Mary Duque APRN and Poly Copeland MD for evaluation of headaches and recommendations for management. HPI: Ms. Kelly Strickland is a 77yo woman who presented with abdominal pain, nausea and vomiting and was diagnosed with adenocarcinoma of the ascending colon. On 01/23/17, she underwent right hemicolectomy. Pathology was interpreted as invasive moderately to poorly differentiated adenocarcinoma, stage [id number], involving 1/14 lymph nodes. She began treatment with FOLFOX on 03/30/17. Following the first infusion, she developed severe jaw pain which persisted for 12/14 days of the cycle, leading to a 50% dose reduction (oxaliplatin) for the second cycle. After the second infusion, she developed headaches. They were initially daily episodic headaches, but have since become constant. She now has a dull headache at all times, with intermittent exacerbations that last several hours to a full 24 hours. Character is pressure-like, not sharp or throbbing in nature. Location is in the retro-orbital, bifrontal and bitemporal regions. Exacerbations are more likely to occur in the afternoon. Sunlight is a trigger. Sleep is often helpful. No associated neurological symptoms, e.g., speech diffculty, vision changes, dizziness, focal numbness or weakness, ataxia. She initially used acetaminophen, and when this became ineffective, transitioned to ibuprofen. She takes 3-4 ibuprofen at a time, and uses the drug at least once per day. She underwent MRI and ophthalmological exam, neither or which were revealing for factors contributing to headache. No past medical history on file. No family history on file. Social History Social History ??? Marital status: Spouse name: N/A ??? Number of children: N/A ??? Years of education: N/A Occupational History ??? Not on file. Social History Main Topics ??? Smoking status: Former Smoker ??? Smokeless tobacco: Never Used Comment: quite 17 years ago ??? Alcohol use Not on file ??? Drug use: Not on file ??? Sexual activity: Not on file Other Topics Concern ??? Not on file Social History Narrative Current Outpatient Prescriptions on File Prior to Visit Medication Sig Dispense Refill ??? acetaminophen (TYLENOL) 500 mg Tablet Take 1,000 mg by mouth every 6 hours as needed for Pain. ??? cyanocobalamin 1,000 mcg Tablet Take 1,000 mcg by mouth daily. ??? multivitamin (THERAGRAN) Tablet Take 1 tablet by mouth daily. ??? UMECLIDINIUM BROMIDE (INCRUSE ELLIPTA INHL) Inhale into the lungs daily. ??? omeprazole (PRILOSEC) 20 mg Capsule, Delayed Release(E.C.) Take 20 mg by mouth daily. ??? hydroCHLOROthiazide (HYDRODIURIL) 25 mg Tablet Take 25 mg by mouth daily. ??? solifenacin (VESICARE) 5 mg tablet Take 5 mg by mouth daily. ??? fluticasone-salmeterol (ADVAIR) 250-50 mcg/dose diskus inhaler Inhale 1 puff into the lungs 2 times daily. ??? Cholecalciferol, Vitamin D3, (VITAMIN D) 1,000 unit Cap ??? Calcium Carbonate (TUMS) 300 mg (750 mg) Chew ??? ACETAMINOPHEN/DP-HYDRAM HCL (TYLENOL PM ORAL) ??? prochlorperazine (COMPAZINE) 10 mg Tablet Take 1 tablet by mouth every 6 hours as needed for Nausea. (Patient not taking: Reported on 04/08/2017) 20 tablet 3 ??? ondansetron (ZOFRAN) 8 mg Tablet Take 1 tablet by mouth every 8 hours as needed for Nausea. Do not take for first 3 days after chemotherapy (Patient not taking: Reported on 04/08/2017) 20 tablet 3 No current facility-administered medications on file prior to visit. Allergies Allergen Reactions ??? Sulfa (Sulfonamide Antibiotics) CIS - mouth swells Physical Exam BP 134/60 (Patient Position: Sitting) Pulse 66 Temp 36.6 ??C (97.9 ??F) (Oral) Resp 18 Ht 162 cm (5' 3.78) Wt 96.8 kg (213 lb 6.4 oz) SpO2 99% BMI 36.88 kg/m2 Gen: 77 y.o. well-nourished, well-developed female in NAD. NCAT. Sclerae anicteric, no conjunctivalinjection. Oropharynx clear. No oral candidiasis. Neck supple. RRR. No calf swelling, asymmetry or tenderness to palpation. No rashes or suspicious lesions on exposed skin. No abnormal/excessive bruising. Neurological Exam MS: Alert and oriented. Speech fluent, comprehension intact. Recent and remote memory intact. Good attention, concentration and fund of knowledge. CN: PERRL, EOMI w/o nystagmus, VF full to confrontation. Sensation intact and symmetric V1-3. No facial weakness. Hearing intact to finger rub bilaterally. Symmetric palate elevation. Full strength in trapezii. Tongue protrudes midline. Motor: Full strength proximally and distally in all four extremities. No pronator drift. Sensory: Sensation intact and symmetric to touch in all four extremities. Coord: Performs FNF well bilaterally. Gait: Normal primary gait. DATA REVIEW Imaging: I personally reviewed the brain MRI performed on 04/28/17. I do not appreciate any evidence of metastatic lesions, leptomeningeal involvement, or any other findings that would contribute to headache. ASSESSMENT/PLAN: Ms. Kelly Strickland is a 77yo woman with high-grade adenocarcinoma of the ascending colon, currently being treated with FOLFOX who presents for evaluation of chronic daily headacheswith intermittent exacerbations and recommendations for management. I had lengthy discussion today with the patient regarding the details of new- onset headaches. Her MRI scan reveals no apparent cause for headaches, her neurological exam is normal, and there are no signs or symptoms highly suggestive of occult leptomeningeal disease. Headaches are temporally-associated with initiation of treatment, so it is possible that this is indeed the trigger. However, basedon current characteristics, I suspect that she has since developed a medication-overuse headache due to daily NSAID use. I think the first step is to completely discontinue acetaminophen and/or ibuprofen. She will transition to naproxen sodium, and will use it on a scheduled basis for the first week (550mg BID). If headaches begin to homa, she can then transition to PRN use. As an adjunct measure, we will also initiate treatment with low-dose amitriptyline. If insufficient, a next step could be a prednisone burst, but I would prefer to hold on this initially due to risk of GI irritation if used along with naproxen. The patient sees Mary Duque APRN and Dr. Del Toro in [facility]. I explained that we could try to manage this remotely without the need to drive to [facility] for follow-up directly with me. I will discuss this with Mary Duque as well. However, I would be glad to see her in follow-up at any point. I spent 45 minutes in [id number] contact with the patient. Of this time, 35 minutes were spent incounseling and/or coordination of care, as detailed in the assessment and plan above. documented in this encounter Plan of Treatment Not on file documented as of this encounter Visit Diagnoses Diagnosis Headache, chronic daily Headache documented in this encounter Care Teams Poultry Buyer Relationship Specialty Start Date End Date Poly Copeland MD [address] [place] [address] PCP - General 09/15/10 documented as of this encounter
--- OUTSIDE RECORDS SUMMARY | 2024-09-11 10:58 | XMS_ITS | Encounter Summary ---
Author Organization [facility] [place] [address] Care Team Providers Care Boat Engines Installer Name Role Phone Poly Copeland MD Primary Care Provider [phone] Encounter Details Date Type Department Care Team (Late st Contact Info) Description 03/30/2017 Notes Only Hematology Oncology at [address] [phone] Jillian Villalobos MSW OFFICE OF CARE MANAGEMENT Social History Tobacco Use Types Packs/Day Years Used Date Smoking Tobacco: Former Sex and Gender Information Value Date Recorded Sex Assigned at Not on file Gender Identity Female 10/25/2020 5:11 AM EST Sexual Orientation Not on file documented as of this encounter Progress Notes * Jillina Villalobos MSW - 03/30/2017 11:26 AM EDT Reason for Referral: Brief assessment of social and emotional needs. Met with pt and granddaughter Cherri during infusion today. Social Supports: Pt is x 4 years. She has a son and daughter in law in [place]. She has several grandchildren and a great grand son. Living Situation/Daily Activities/Transportation: Pt lives in her own home and manages her daily chores and activities. She does not expect any problems with transportation. 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 She has medicare A & B. She has applied for financial assistance through [facility]. She has been approved for financial assistance at [facility]. Advance Directives: Pt has completed her advance directive. Requested a copy for her record. Utilization of Community Resources: None at this time. Adjustment to Illness/Mental Health Issues: Pt reports she feels she is coping well. She feels wellsupported by her family and friends. She keeps active. Identified Needs: Pt did not identify any specific needs at this time. Referrals: None at this time. Plan: Informed pt and granddaughter of my availability. Will follow for support and resources. documented in this encounter Plan of Treatment Not on file documented as of this encounter Visit Diagnoses Not on filedocumented in this encounter Care Teams Boat Engines Installer Relationship Specialty Start Date End Date Poly Copeland MD [address] [place] [address] PCP - General 09/15/10 documented as of this encounter
--- OUTSIDE RECORDS SUMMARY | 2024-09-11 10:58 | XMS_ITS | Encounter Summary ---
Author Organization [facility] [place] [address] Care Team Providers Care Pulp Mill Operator Name Role Phone Poly Copeland MD Primary Care Provider [phone] Encounter Details Date Type Department Care Team (Late st Contact Info) Description 04/01/2017 Orders Only Hematology/Oncology at [address] [address] Raffi Del Toro MD [facility] [place] [address] Malignant neoplasm of ascending colon Social History [...] colon documented in this encounter Care Teams Pulp Mill Operator Relationship Specialty Start Date End Date Poly Copeland MD [address] [place] [address] PCP - General 09/15/10 documented as of this encounter
--- OUTSIDE RECORDS SUMMARY | 2024-09-11 10:58 | XMS_ITS | Encounter Summary ---
Author Organization [facility] [place] [address] Care Team Providers Care Print Journalist Name Role Phone Poly Copeland MD Primary Care Provider [phone] Encounter Details Date Type Department Care Team (Late st Contact Info) Description 04/22/2017 1:00 PM EDT Office Visit Hematology/Oncology at [address] [phone] Mary Duque, TANKERMAN [address] [facility] [place] [address] Malignant neoplasm of ascending colon; Carcinoma in [...] Sign Reading Time Taken Comments Blood Pressure 138/56 04/22/2017 12:52 PM EDT Pulse 81 04/22/2017 12:52 PM EDT Temperature 36.4 ??C (97.5 ??F) 04/22/2017 12:52 PM E DT Respiratory Rate 16 04/22/2017 12:52 PM EDT Oxygen Saturation 100% 04/22/2017 12:52 PM EDT Inhaled Oxygen Concentration - - Weight 95.3 kg (210 lb) 04/22/2017 12:52 PM EDT Height 162 cm (5' 3.78) 04/22/2017 12:52 PM EDT Body Mass Index 36.3 04/22/2017 12:52 PM EDT documented in this encounter Progress Notes * Mary Duque, TANKERMAN - 04/22/2017 1:00 PM EDT Subjective: Patient ID: Kelly [...] process. B. 01/23/17 - Right hemicolectomy Path ([facility] [place]) - CONSULTATION CASE Outside slide(s) labeled [id number], collection date 01/23/2017. Ascending colon, cecum, terminal [...] above. On presentation today, she is alone. Her jaw pain was much improved with the dose decrease and oxaliplatin however she has had a persistent headache since starting treatment. She feels the headache is slowly getting worse. It has caused her some minor vision changes and she has no past history of headaches or migraines. She has not had any nausea and bowels are regulated on MiraLAX. She has had ahoarse throat which has been uncomfortable and did have sores in her mouth over this past cycle. She finds it difficult to actually get her throat clear. She is quite fatigued. Her legs feel like lead. 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 Hematological: Negative. Psychiatric/Behavioral: Negative. BP 138/56 (Patient Position: Sitting) Pulse 81 Temp 36.4 ??C (97.5 ??F) (Oral) Resp 16 Ht 162 cm (5' 3.78) Wt 95.3 kg (210 lb) SpO2 100% BMI 36.3 kg/m2 Wt Readings from Last 3 Encounters: 04/22/17 95.3 kg (210 lb) 04/13/17 94.8 kg (209 lb) 04/08/17 95.7 kg (211 lb) Objective: Physical Exam Constitutional: She is [...] Her behavior is normal. Vitals reviewed. Labs: 04/22/17 CBC: W BC 5.85 hemoglobin 11.5 platelets 235 ANC 1.97 CMP: Sodium 142 potassium 3.7 BUN 17 creatinine 0.94 calcium 8.4 total bili 0.2 AST 14 ALT 18 alkaline phosphatase 82 total protein 7.2 albumin 3.4 ONCBCN ONCOLOGY (AMB) 03/30/2017 Day, Cycle Day 1, Cycle 1 fluorouracil (ADRUCIL) IV 400 mg/m2/dose = 832 mg leucovorin IV 350 mg OXALIplatin (ELOXATIN) IV 85 mg/m2/dose = [facility] 03/30/2017 Day, Cycle fluorouracil (ADRUCIL) IV 2,400 mg/m2/dose = 4,992 mg leucovorin IV OXALIplatin (ELOXATIN) IV [facility] ONCOLOGY ([facility]) 04/13/2017 Day, Cycle Day 1, Cycle 2 fluorouracil (ADRUCIL) IV 400 mg/m2/dose = 832 mg leucovorin IV 350 mg OXALIplatin (ELOXATIN) IV 42.5 mg/m2/dose = 88 mg [facility]) 04/13/2017 Day, Cycle fluorouracil (ADRUCIL) IV 2,400 [...] about dosing. With respect to her headaches, in consultation with Dr. Del Toro, we will be making an appointment for an MRI of the brain to evaluate for an acute process. This may represent a chemo effect so we will plan to hold C3 today and re-evaluate next week. She was scheduled for a colonoscopy on 04/[address] Caruso. Mary Duque, MSN, [employer] SALES ENGINEER, AOCN Hematology/Oncology Nurse Practitioner [place], [place] [phone] documented in this encounter Plan of Treatment Not on file documented as of this encounter Procedures Procedure Name Priority Date/Time Associated Diagnosis Comments MRI/MRA SCAN 04/28/2017 12:00 AM EDT LAB SCAN 04/22/2017 12:00 AM EDT SCAN DOC: COLONOSCOPY 04/12/2017 12:00 AM EDT documented in this encounter Results * SCAN DOC: MRI/MRA (04/28/2017 12:00 AM EDT) Anatomical Region Laterality Modality Other Narrative 04/28/2017 12:00 AM EDT Ordered by an unspecified provider. Scanning Provider MEDIA MGR SCAN EXT O RDR/RSLT * SCAN DOC: LAB (04/22/2017 12:00 AM EDT) Narrative 04/22/2017 12:00 AM EDT Ordered by an unspecified provider. Scanning Provider MEDIA MGR SCAN EXT O RDR/RSLT * SCAN DOC: COLONOSCOPY (04/12/2017 12:00 AM EDT) Narrative 04/12/2017 12:00 AM EDT Ordered by an unspecified provider. Scanning Provider MEDIA MGR SCAN EXT O RDR/RSLT documented in this encounter Visit Diagnoses Diagnosis Malignant neoplasm of ascending colon Carcinoma in situ of breast, unspecified laterality, unspecified type documented in this encounter Care Teams Print Journalist Relationship Specialty Start Date End Date Poly Coepland MD [address] [place] [address] [address] [place] [address] PCP - General 09/15/10 documented as of this encounter
--- OUTSIDE RECORDS SUMMARY | 2024-09-11 10:58 | XMS_ITS | Encounter Summary ---
Author Organization [facility] [place] [address] Care Team Providers Care Chicken Dresser Name Role Phone Poly Copeland MD Primary Care Provider [phone] Encounter Details Date Type Department Care Team (Late st Contact Info) Description 04/07/2017 Telephone Hematology/Oncology at [address] [phone] Chip Rosas Social History Tobacco Use Types Packs/Day Years Used Date Smoking Tobacco: Former Sex and Gender Information Value Date Recorded Sex Assigned at Not on file Gender Identity Female 10/25/2020 5:11 AM EST Sexual Orientation Not on file documented as of this encounter Miscellaneous Notes * Telephone Encounter - Chip Rosas - 04/07/2017 11:43 AM EDT Pt called to confirm her apt here and up at port draw tomorrow. She was confused because she said she knew about her port draw at 8 but didn't know she had to come here after. I confirmed all apt's with her and the pt agreed. documented in this encounter Plan of Treatment Not on file documented as of this encounter Visit Diagnoses Not on filedocumented in this encounter Care Teams Chicken Dresser Relationship Specialty Start Date End Date Poly Copeland MD [address] [place] [address] PCP - General 09/15/10 documented as of this encounter
--- OUTSIDE RECORDS SUMMARY | 2024-09-11 10:58 | XMS_ITS | Encounter Summary ---
Author Organization [facility] [place] [address] Care Team Providers Care Information Specialist Name Role Phone Poly Copeland MD Primary Care Provider [phone] Encounter Details Date Type Department Care Team (Late st Contact Info) Description 05/13/2017 10:00 AM EDT Office Visit Hematology/Oncology at [address] [phone] Raffi Del Toro MD [facility] [place] [address] Malignant neoplasm of ascending colon Social History [...] Sign Reading Time Taken Comments Blood Pressure 142/60 05/13/2017 10:05 AM EDT Pulse 78 05/13/2017 10:05 AM EDT Temperature 36.8 ??C (98.2 ??F) 05/13/2017 10:05 AM E DT Respiratory Rate 16 05/13/2017 10:05 AM EDT Oxygen Saturation 96% 05/13/2017 10:05 AM EDT Inhaled Oxygen Concentration - - Weight 95.3 kg (210 lb) 05/13/2017 10:05 AM EDT Height 162 cm (5' 3.78) 05/13/2017 10:05 AM EDT Body Mass Index 36.3 05/13/2017 10:05 AM EDT documented in this encounter Progress Notes * Raffi Del Toro MD - 05/13/2017 10:00 AM EDT Subjective: Patient ID: Kelly [...] process. B. 01/23/17 - Right hemicolectomy Path ([facility] [place] [place]) - CONSULTATION CASE Outside slide(s) labeled [id number], collection date 01/23/2017. Ascending colon, cecum, terminal [...] amytriptyline and naproxen. On presentation today, she is accompanied by her son JORGE. The headaches continue and are constant. They are located in the frontal region and are relatively mild. She has not started the amytriptylineor naproxen because she wasn't sure why she needed an antidepressant and was worried about potential side effects of both medications. She otherwise feels well. She is eating well and her weight is stable. Her energy level is good. Her activity is limited by LONG. She is not very physically active but spends a lot of time knitting. No symptoms of neuropathy. No visual changes. 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 Labs: WBC/ANC - 7., Hgb/Hct - 12.3/39.3, Plts - 202,000. BUN/Cr -16/1.01. Alb - 3.2. Lytes and LFTs o/w unremarkable. Assessment and Plan: Ms. Strickland is [...] please see above. After extensive discussion, she would like to proceed with chemotherapy. She is scheduled for 05/16 and we willgive the reduced dose oxaliplatin again and I am also going to lower the 5FU dose by 25%. She is going to start the amytriptyline and naproxen as prescribed by Dr. Ambrose. We will see her again in two weeks. If she does well, we could consider trying to increase the doses. We will see her againin two weeks. documented in this encounter Plan of Treatment Not on file documented as of this encounter Procedures Procedure Name Priority Date/Time Associated Diagnosis Comments LAB SCAN 05/16/2017 12:00 AM EDT LAB SCAN 05/13/2017 12:00 AM EDT documented in this encounter Results * SCAN DOC: LAB (05/16/2017 12:00 AM EDT) Narrative 05/16/2017 12:00 AM EDT Ordered by an unspecified provider. Scanning Provider MEDIA MGR SCAN EXT O RDR/RSLT * SCAN DOC: LAB (05/13/2017 12:00 AM EDT) Narrative 05/13/2017 12:00 AM EDT Ordered by an unspecified provider. Scanning Provider MEDIA MGR SCAN EXT O RDR/RSLT documented in this encounter Visit Diagnoses Diagnosis Malignant neoplasm of ascending colon documented in this encounter Care Teams Information Specialist Relationship Specialty Start Date End Date Poly Copeland MD [address] [place] [address] PCP - General 09/15/10 documented as of this encounter
--- OUTSIDE RECORDS SUMMARY | 2024-09-11 10:58 | XMS_ITS | Encounter Summary ---
Author Organization [facility] [place] [address] Care Team Providers Care Media Consultant Outside Sales Name Role Phone Poly Copeland MD Primary Care Provider [phone] Encounter Details Date Type Department Care Team (Latest Contact Info) Description 01/18/2017 Hospital Encounter Radiology Library at [facility] [place] [phone] Tucker Calle MD [facility] [place] [address] Discharge Disposition: Home Social History Tobacco Use [...] Comments FILM LIBRARY-STORAGE ONLY US BREAST Routine 01/18/2017 12:00 AM EDT documented in this encounter Results * Film Library Storage Only US Breast (01/18/2017 12:00 AM EDT) Narrative RAD - 01/25/2018 9:42 AM EDT This exam is for storage only and is auto-finalizing. Tucker Calle MD IMG FILM LIBRARY ORD ERABLES [place], [place] documented in this encounter Visit Diagnoses Not on filedocumented in this encounter Care Teams Media Consultant Outside Sales Relationship Specialty Start Date End Date Poly Copeland MD [address] [place] [address] PCP - General 09/15/10 documented as of this encounter
--- OUTSIDE RECORDS SUMMARY | 2024-09-11 10:58 | XMS_ITS | Encounter Summary ---
[facility] [place] [address] Care Team Providers Care Managing Attorney Name Role Phone Poly Copeland MD Primary Care Provider [phone] Encounter Details Date Type Department Care Team (Latest Contact Info) Description 02/24/2017 3:21 PM EDT - 02/24/2017 11:59 PM EDT Hospital [place] [id number] Discharge Disposition: Home Social History Tobacco Use [...] Priority Date/Time Associated Diagnosis Comments SURGICAL PATHOLOGY REPORT Routine 02/24/2017 4:16 PM EDT MOLECULAR GENETICS REPORT Routine 02/24/2017 1:54 PM EDT documented in this encounter Results * Surgical Pathology Report (02/24/2017 4:16 PM EDT) Pathologist [facility] Final Diagnosis [id number] ?Location: [facility] The signing pathologist has (i) examined the relevant preparation(s) for the specimen(s) and (ii) rendered or confirmed the diagnosis(es). . ?Surgical Pathology DIAGNOSIS CONSULTATION CASE Outside slide(s) labeled [id number], collection date 01/23/2017. Ascending colon, cecum, terminal ileum and appendix, right hemicolectomy: Invasive moderately to poorly differentiated adenocarcinoma of ascending colon, stage pT4a N1a, see synoptic report. Appendix, negative for carcinoma. Synoptic report Specimen Parts: ?? A Specimen ? Specimen: ??Terminal ileum, Cecum, Appendix, Ascending colon ? Procedure: ??Right hemicolectomy ? Macroscopic Intactness of Mesorectum: ?Not applicable Tumor ? Primary Tumor Site: ?? Right (ascending) colon ? Histologic Type: ?? Adenocarcinoma ? Histologic Grade: ?? High-grade (poorly differentiated to undifferentiated) ?Specify: ??Moderately to poorly differentiated ? Tumor Size: ?? 6.3 x 6.0 x 0.3 cm ? Tumor Deposits: ?? Not identified ? Multiple Primary Sites: ?? No additional site(s) present ? Tumor Extent ?Site(s) of Direct Extent of Tumor: ?Right (ascending) colon ?Microscopic Tumor Extension: ?? Tumor penetrates to the surface of the ? visceral peritoneum (serosa) ?Macroscopic Tumor Perforation: ?? Not Identified ? Accessory Tumor Findings ?Lymph-Vascular Invasion: ?? Present ? Type of Lymph-Vascular Invasion: ?? Small vessel lymph-vascular invasion ?Histologic Features Suggestive of Microsatellite Instability ? Intratumoral Lymphocytic Response (tumor-infiltratin g lymphocytes): ? Marked (3 or more per high-power field) ? Peritumor Lymphocytic Response (Crohn-like response): ?Mild to moderate ? Tumor Subtype and Differentiation: ?? High histologic grade (poorly ?differentiated) ?Perineural Invasion: ?? Present ?Treatment Effect: ?? Not known Margins ? Proximal Margin: ?? Uninvolved by invasive carcinoma ? Distal Margin: ?? Uninvolved by invasive carcinoma ? Circumferential (Radial) Margin: ?Uninvolved by invasive carcinoma ?Distance of Tumor from Margin: ?? 8.3 cm ? Mesenteric Margin: ?? Not applicable Lymph Nodes ? Number of Lymph Nodes Examined: ?14 ? Number of Lymph Nodes Involved: ?1 Stage (pTNM) ? Primary Tumor (pT): ?? pT4a: Tumor penetrates the visceral peritoneum ? Regional Lymph Nodes (pN): ?? pN1a: Metastasis in 1 regional lymph node Tumor Block(s): ?? [id number] A-10, A-11, A-20 Normal Block(s): ?? [id number] A-01 Comments . DIAGNOSIS ? Per outside report, the closest margin is radial margin (8.3 cm away from ?tumor). The submitted outside immunostains show loss of nuclear staining for ?MLH1 and PMS2, while retention of nuclear staining for MSH2 and MSH6 in the ?tumor cells. [facility] e[facility] December 2015 Annual Release Electronically signed by: ??Thea Latif MD Verified: ??02/28/2017 ?Pathologist ADDITIONAL STUDIES Whole slide scan: [id number] A-10, 11, 12, 13, 14, 15, 20, 22, 27 CLINICAL INFORMATION Specimen Submitted: CONSULTATION CASE A - 27 slide(s) labeled [id number], collection date 01/23/2017. [id number] Report to: [facility] Surgical Pathology Department [facility], [address] [place] [id number] SPECIMEN PROCESSING [facility] ([facility]) pathology slide(s) are reviewed. ??Refer to Diagnosis and Specimen Submitted for specific case information. For the full text of the [facility] report(s) please refer to Non-DH Documentation Pathology in the electronic health record (eDH). 02/28/2017 6:27 PM EDT [facility] Consult Case 02/24/2017 4:16 PM EDT 02/24/2017 4:16 PM EDT Raffi Del Toro MD PATHOLOGY/CYTOLOGY O REBECCA [facility] [place] [address] * Molecular Genetics Report (02/24/2017 1:54 PM EDT) Molecular Report [id number] ?Location: [facility] The signing pathologist has (i) examined the relevant preparation(s) for the specimen(s) and (ii) rendered or confirmed the diagnosis(es). . ?Molecular Genetics RESULTS CONSULTATION CASE Outside labeled [id number], collection date 01/23/2017. [facility] #: [id number] Report to: [facility] Surgical Pathology Department [facility], [facility], [address] [place], [place] ??[address] Please refer to Surgical Pathology Report [id number] for final pathology diagnosis. INDICATION FOR STUDY: ?? 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 [id number] Solid Tumor Fusion Panel Analysis: ?? Examination of RNA extracted from formalin-fixed paraffin-embedded tumor tissue for somatic mutation analysis. Results: ?? The following gene fusions were identified in the submitted tissue: PTPRK - > RSPO3 Interpretation: ?? After review of the pathology report and slides, the specimen ([id number]) was selected for fusion analysis using a panel of 53 partner genes. Therapeutic options related to the presence or absence of mutations should be carefully assessed. ??Availability of other therapeutic indications and clinical trials may be possible. These results may indicate clinical trial eligibility; consider presenting at the [facility] Molecular Tumor Board for further interpretation and discussion by contacting ??Glo ??. Methods: ?? Solid Tumor Fusion Panel ??- Hematoxylin and eosin (H ??&E) stained slides for each sample were reviewed by an attending pathologist to determine the tumor area and estimate the percent of neoplastic cells present in the tissue. ??RNA was extracted from macro-dissected FFPE tissue sections using the AllPrep DNA/RNA FFPE Kit. ??RNA was converted to cDNA, and sample quality was assessed using a qPCR assay, requiring a minimum cycle threshold (Ct) value of 29. ??Preparation of libraries was performed by a fully trained [facility] technologist using a clinically validated [employer] Solid Tumor Panel assay protocol. ??A total of five Putty Tinter Maker Checkpoints (QC Checkpoints) were established: (1) QC1: pre RNA extraction, (2) QC2: RNA quantification, (3) QC3: RNA quality, (4) QC4: library quantification, and (5) QC5: post-sequencing metrics. . RESULTS Sequencing was performed on an Illumina MiSeq or MiSeqDX instrument using 150bp paired-end sequencing reads with a minimum of 3.0 million sequencing reads per sample. ??The minimum fusion detection limit was 5%. ??Novel fusions were confirmed using a laboratory developed procedure. ??Sequencing reads were aligned to the hg19 reference genome build, and analyzed using the [employer] Analysis ?Appy[employer]oo Software. ??Variant were reviewed and curated using both peer-reviewed literature and publicly available databases. ??Sources are listed below and in the references section of this report. http://www.mycance rgenome.org https://ckb.evita.or g/gene/grid https://targetedca ncercare.[employer].org/My-Trial-Gu chris.aspx The 53 genes assessed by the Solid Tumor Fusion assay include: ? AKT3, ALK, QGHVUN17, JACKY, BRAF, BRD3, BRD4, EGFR, ERG, ESR1, ETV1, ETV4, ETV5, ETV6, EWSR1, FGFR1, FRFR2, FGFR3, FGR, INSR, MAML2, MAST1, MAST2, MET, MSMB, MUSK, MYB, NOTCH1, NOTCH2, NRG1, NTRK1, NTRK2, NTRK3, NUMBL, NUTM1, PDGFRA, PDGFRB, PIK3CA, PKN1, PPARG, PRKCA, PRKCB, RAF1, RELA, RET, ROS1, RSPO2, RSPO3, TERT, TFE3, TFEB, THADA, and TMPRSS2. While DNA testing is very accurate, rare diagnostic errors due to various pre- and post-analytical variables do occur. This test was developed and its performance characteristics determined by the Clinical Genomics and Advanced Technology ? (CGAT) Laboratory at [facility]. It has not been cleared or approved by the FDA. The laboratory is regulated under CLIA as qualified to perform high-complexity testing. This test is used for clinical purposes. It should not be regarded as investigational or for research. Assay Limitations : (1) Fusions outside of the target region and below the limit of detection will not be detected. References: ?1. ??Domenica Osei Mertens F. The impact of translocations and gene ? fusions on cancer causation. Nature Reviews Cancer 2007;7:233-245. ?2. ??Domenica Peters Fioretos T, Mitelman F. The emerging complexity of ? gene fusions in cancer. Nature Reviews Cancer 2015;15:371-381. Reviewed by: Myrna Villarreal, PhD, [facility]-Screen Printing Equipment Setter ?04/15/17 12:15 Reviewed by: Raffi Colon, PhD, [facility], Director-[facility] ([facility], 04/22/17 12:14) Electronically signed by: ??Darlene Blackmon, Raffi So Verified: ??04/22/2017 ?Director, Molecular Pathology ?Molecular Genetics RESULTS CONSULTATION CASE Outside labeled [id number], collection date 01/23/2017. [facility] #: [id number] Report to: [facility] Surgical Pathology Department [facility], [address] [place] [id number] . RESULTS Please refer to Surgical Pathology Report [id number] for final pathology diagnosis. INDICATION FOR STUDY: ?? 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 [id number] Analysis: ??Examination of DNA extracted from formalin-fixed paraffin-embedded tumor tissue for somatic mutation analysis. Results: ??The following gene variants were identified in the submitted tissue: CLINICALLY ACTIONABLE VARIANTS: BRAF: ??MUTATION c.1799T >A p.V600E Exon 15 HRAS: ??NEGATIVE KRAS: ??NEGATIVE NRAS: ??NEGATIVE OTHER DETECTED VARIANTS: N/A Interpretation: ?? After review of the pathology report and slides, the specimen ([id number]) was selected for mutation analysis from a panel of 50 genes. The results of this test indicate that tumor cells comprising 70.0% of the tissue specimen analyzed were normal for hotspots in the HRAS, KRAS, NRAS, and 46 other genes. 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 The V600E mutation suggests that this patient may not benefit from anti-EGFR therapy but may respond to select BRAF inhibitors. This mutation occurs within the activation segment of the kinase domain. Most mutant BRAF proteins have increased kinase activity. ?? Therapeutic options related to the presence or absence of mutations should be carefully assessed. Availability of other therapeutic indications and clinical trials may be possible. These results may indicate clinical trial eligibility; please consider presenting at the [facility] Molecular Tumor Board for further interpretation and discussion by contacting ??[email or web address] ??. For additional information on clinically actionable variants, please visit the following websites: http://www.mycance rgenome.org/conten t/disease/colorect al-cancer http://www.nccn.or g/professionals/ph ysician_gls/nichole_anthony jacob.asp Methods: ??Genomic DNA was extracted from formalin-fixed paraffin-embedded tumor tissue. DNA sequencing was performed using the 50-gene Cancer Hotspot Panel ([employer]) for each gene reported. ??Sequences were aligned to the hg19 (GRCh37) reference genome. ??This panel is designed to examine previously described and . RESULTS recurring somatic mutations in human tumors. ? Next-generation sequencing analysis of these genes was further confirmed by other assays during validation in our CLIA-certified laboratory. ? Normal (non-tumor) tissue from this patient has not been tested, therefore, the possibility of any detected mutations being a germline mutation cannot be ruled out. The genes assessed by the Cancer Hotspot Panel v2 include: ABL1, AKT1, ALK, APC, PALLAVI, BRAF, CDH1, CDKN2A, CSF1R, CTNNB1, EGFR, ERBB2, ERBB4, EZH2, FBXW7, FGFR1, FGFR2, FGFR3, FLT3, GNA11, GNAQ, GNAS, HNF1A, HRAS, IDH1, IDH2, JAK2, JAK3, KDR, KIT, KRAS, MET, MLH1, MPL, NOTCH1, NPM1, NRAS, PDGFRA, PIK3CA, PTEN, PTPN11, RB1, RET, SMAD4, SMARCB1, SMO, SRC, STK11, TP53, and VHL. While DNA testing is very accurate, rare diagnostic errors due to various pre- and post-analytical variables do occur. This test was developed and its performance characteristics determined by the Clinical Genomics and Advanced Technology ? (CGAT) Laboratory at [facility]. It has not been cleared or approved by the FDA. The laboratory is regulated under CLIA as qualified to perform high-complexity testing. This test is used for clinical purposes. It should not be regarded as investigational or for research. References : ??Humberto SHABAZZ, et al. J Mol Diagn. 2013 Dec 15(2):234-247; Kristin Agudelo et al. J Mol Diagn 2012 15(2):171-176; Vince RR et al. J Mol Diagn 2012 15(5):607-622; Darlene SANCHEZ, et al. Clin Chem Lab Med Sep 2013;13:1-8. Reviewed by: Myrna Villarreal, PhD, CGAT-Screen Printing Equipment Setter ?03/25/17 17:23 Electronically signed by: ??Radames Mack MD Verified: ??03/29/2017 ?Pathologist [facility] 02/24/2017 1:54 PM EDT Raffi Del Toro MD PATHOLOGY/CYTOLOGY O RDERABLES [facility] [place] [address] documented in this encounter Visit Diagnoses Not on filedocumented in this encounter Care Teams Managing Attorney Relationship Specialty Start Date End Date Poly Copeland MD [address] [place] [address] PCP - General 09/15/10 documented as of this encounter
--- OUTSIDE RECORDS SUMMARY | 2024-09-11 10:58 | XMS_ITS | Encounter Summary ---
Author Organization [facility] Address [facility] [place] [address] Care Team Providers Care Strike Off Machine Operator Name Role Phone Poly Copeland MD Primary Care Provider [phone] Reason for Visit * Reason Comments Chemotherapy Cycle 5 day 1 * Treatment/Therapy Plan Authorization (Routine) - Closed Specialty Diagnoses / Procedures Referred By Contac t Referred To Contact Diagnoses Malignant neoplasm of ascending colon Raffi Del Toro MD [facility] [place] [address] Referral ID Status Reason Start Date Expiration Date Visits Re quested Visits Authorized [id number] Closed 03/04/2017 03/04/2018 1 1 Encounter Details Date Type Department Care Team (Late st Contact Info) Description 06/15/2017 10:00 AM EDT Infusion Hematology Oncology at [address] [address] Malignant neoplasm of ascending colon [...] Sign Reading Time Taken Comments Blood Pressure 120/57 06/15/2017 9:44 AM EDT Pulse 83 06/15/2017 9:44 AM EDT Temperature 36.6 ??C (97.9 ??F) 06/15/2017 9:44 AM ED T Respiratory Rate 18 06/15/2017 9:44 AM EDT Oxygen Saturation 95% 06/15/2017 9:44 AM EDT Inhaled Oxygen Concentration - - Weight 97.5 kg (215 lb) 06/15/2017 9:44 AM EDT Height 162 cm (5' 3.78) 06/15/2017 9:44 AM EDT copied Body Mass Index 37.16 06/15/2017 9:44 AM EDT documented in this encounter Progress Notes * Jeri Pritchett RN - 06/15/2017 10:00 AM EDT INFUSION THERAPY ADMINISTRATION NOTES DIAGNOSIS: Colon cancer CYCLE # 5 Day 1 REASON FOR VISIT: FOLFOX infusion and initiation of continunous home 5FU infusion via CADD pump provided by [employer] SUBJECTIVE Kelly offers no complaints. OBJECTIVE LAB DATA: WNL Pre administration: Chemotherapy orders independently verified for drug name, route, and dosage per patient's height, weight and BSA by Rajani Ayala [facility]. and Jeri Pritchett, [place]. At time of administration Patient identity verified using patient's name and date of at the chair/bedside by double RN check just prior to initiating the patient's home infusion chemotherapy via CADD pump provided by [employer]. Fluorouracil 3,726 mg over 46 hours, IV via CADD [...] Priority Date/Time Associated Diagnosis Comments LAB SCAN 06/15/2017 12:00 AM EDT documented in this encounter Results * SCAN DOC: LAB (06/15/2017 12:00 AM EDT) Narrative 06/15/2017 12:00 AM EDT Ordered by an unspecified [...] 10 mg, Oral, ONCE, 1 dose, On Tue06/15/17 at 1015, Administer prior to chemotherapy, Routine Given 06/15/2017 10:26 AM EDT 10 mg fluorouracil (ADRUCIL) 3,726 mg in sodium chloride 0.9% 138 mL chemo infusion 3,726 mg (1,800 mg/m2/dose ? 2.07 m2 Treatment Plan BSA from Recorded weight), Intravenous, ONCE, 1 dose, On Tue06/15/17 at 1245, Administer over 46 Hours, Warning Vesicant/Irritant Medication To be infused via an ambulatory infusion CADD Legacy Plus pump continuously IV at 3 mL/hr for 46 hours. Pump contains a 46 hour supply and provides a daily dose of 1200 mg/m2/day = 2400 mg/m2 IV over 46 hours with 12 mL of overfill in bag. Given 06/15/2017 1:49 PM EDT 3,726 mg 3 mL/hr fluorouracil (ADRUCIL) chemo injection 621 mg 621 mg (300 mg/m2/dose ? 2.07 m2 Treatment Plan BSA from Recorded weight), Intravenous, ONCE, 1 dose, On Tue06/15/17 at 1115, Administer over 5 Minutes Given 06/15/2017 1:45 PM EDT 621 mg 149 mL/hr leucovorin 350 mg in dextrose 5% 535 mL infusion 350 mg, Intravenous, ONCE, 1 dose, On Tue06/15/17 at 1115, Administer over 85 Minutes, May Y-site with OXALIplatin New Bag 06/15/2017 11:56 AM EDT 350 mg 378 mL/hr ondansetron (ZOFRAN) 8 mg in sodium chloride 0.9% 50 mL 8 mg, Intravenous, ONCE, 1 dose, On Tue06/15/17 at 1015, Administer over 15 Minutes New Bag 06/15/2017 10:43 AM EDT 8 mg 216 mL/hr OXALIplatin (ELOXATIN) 114 mg in dextrose 5% 272.8 mL chemo infusion 114 mg (rounded from 114.3675 mg = 55.25 mg/m2/dose ? 2.07 m2 Treatment Plan BSA from Recorded weight), Intravenous, ONCE, 1 dose, On Tue06/15/17 at 1115, Administer over 85 Minutes, Compatible with dextrose-containing solution only. Warning Vesicant/Irritant Medication New Bag 06/15/2017 11:56 AM EDT 114 mg 192.6 mL/hr documented in this encounter Care Teams Strike Off Machine Operator Relationship Specialty Start Date End Date Poly Copeland MD [address] [place] [address] PCP - General 09/15/10 documented as of this encounter
--- OUTSIDE RECORDS SUMMARY | 2024-09-11 10:58 | XMS_ITS | Encounter Summary ---
Author Organization Count Includes [facility] Address [facility] [place] [address] Care Team Providers Care Radiology Teacher Name Role Phone Poly Copeland MD Primary Care Provider [phone] Encounter Details Date Type Department Care Team (Latest Contact Info) Description 12/24/2014 - 12/24/2014 11:59 PM EST Hospital Encounter Radiology Library at [facility] [place] [address] Tucker Calle MD [facility] [place] [address] Screening breast examination Discharge Disposition: Home Social [...] Comments FILM LIBRARY STORAGE ONLY MAMMO Routine 12/24/2014 12:00 AM EST Screening breast examination documented in this encounter Results * Film Library- Storage Only Mammo (12/24/2014 12:00 AM EST) Narrative RAD - 01/28/2017 11:39 AM EDT This exam is for storage only and is auto-finalizing. Tucker Calle MD IMG FILM LIBRARY ORD ERABLES [place], [place] documented in this encounter Visit Diagnoses Diagnosis Screening breast examination Other screening breast examination documented in this encounter Care Teams Radiology Teacher Relationship Specialty Start Date End Date Poly Copeland MD [address] [place] [address] PCP - General 09/15/10 documented as of this encounter
--- OUTSIDE RECORDS SUMMARY | 2024-09-11 10:58 | XMS_ITS | Encounter Summary ---
Author Organization [facility] Address [facility] [place] [address] Care Team Providers Care Student Records Coordinator Name Role Phone Poly Copeland MD Primary Care Provider [phone] Encounter Details Date Type Department Care Team (Late st Contact Info) Description 02/25/2017 External [place] [id number] Provider, Scanning Social History Tobacco Use Types [...] Associated Diagnosis Comments SURGICAL PATHOLOGY SCAN Routine 02/25/2017 documented in this encounter Results * Scan Doc: Surgical Pathology (02/25/2017) Raffi Del Toro MD MEDIA MGR SCAN EXT O RDR/RSLT documented in this encounter Visit Diagnoses Not on filedocumented in this encounter Care Teams Student Records Coordinator Relationship Specialty Start Date End Date Poly Copeland MD [address] [place] [address] PCP - General 09/15/10 documented as of this encounter
--- OUTSIDE RECORDS SUMMARY | 2024-09-11 10:58 | XMS_ITS | Encounter Summary ---
Author Organization [facility] Address [facility] [place] [address] Care Team Providers Care Chief Nurse Name Role Phone Poly Copeland MD Primary Care Provider [phone] Reason for Referral * Consultation (Routine) - Specialty Diagnoses / Procedures Referred By Rajendra alvarez Referred To Contact General Surgery Diagnoses Malignant neoplasm of ascending colon Raffi Del Toro MD [facility] [place] [address] Oc Caruso DO [address] [place] [address] Referral ID Status Reason Start Date Expiration Date Visits Requested Visits Authorized Specialty Service Requested 03/04/2017 08/31/2017 1 1 Reason for Visit * Consultation (Routine) - Closed Specialty Diagnoses / Procedures Referred By Contac t Referred To Contact Hematology and Oncology Diagnoses Colon cancer COLON CANCER Procedures TREATMENT OPTIONS Oc Caruso DO [address] [place] [address] St Hem Onc Office [address] [place] [phone] Referral ID Status Reason Start Date Expiration Date Visits Re quested Visits Authorized [id number] Closed 02/22/2017 02/22/2018 1 1 Encounter Details Date Type Department Care Team (Late st Contact Info) Description 03/04/2017 3:00 PM EDT Office Visit Hematology/Oncology at [address] [address] Raffi Del Toro MD [facility] [place] [address] Malignant neoplasm of ascending colon Social History Tobacco Use Types Packs/Day Years Used Date Smoking Tobacco: Former Sex and Gender Information Value Date Recorded Sex Assigned at Not on file Gender Identity Female 10/25/2020 5:11 AM EST Sexual Orientation Not on file documented as of this encounter Last Filed Vital Signs Vital Sign Reading Time Taken Comments Blood Pressure 147/64 03/04/2017 3:11 PM EDT Pulse 92 03/04/2017 3:11 PM EDT Temperature 36.7 ??C (98.1 ??F) 03/04/2017 3:11 PM ED T Respiratory Rate 16 03/04/2017 3:11 PM EDT Oxygen Saturation 98% 03/04/2017 3:11 PM EDT Inhaled Oxygen Concentration - - Weight 96.6 kg (213 lb) 03/04/2017 3:11 PM EDT Height 162 cm (5' 3.78) 03/04/2017 3:11 PM EDT Body Mass Index 36.81 03/04/2017 3:11 PM EDT documented in this encounter Progress Notes * Raffi Del Toro MD - 03/04/2017 3:00 PM EDT Subjective: Patient ID: Kelly Strickland is a 76 y.o. female. Problem List: 1. Colon cancer, [...] process. B. 01/23/17 - Right hemicolectomy Path ([facility] [place]) - CONSULTATION CASE Outside slide(s) labeled [id number], collection date 01/23/2017. Ascending colon, cecum, terminal [...] complicated by bonifacio-hepatic abscess, requiring drain placement 2. 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 No further therapy 3. HTN 4. COPD 5. S/p cholecystectomy 4. S/p hysterectomy 5. S/p bilateral TKA HPI Ms. Strickland is seen for evaluation and management of stage IV colon cancer. The history is summarized above. On presentation today, she is accompanied by her son MERRICK and grand-daughter, Cherri. She is anxiousbut physically feeling well. She is recovering well [...] weight but has gained that back. Her energylevel is good. Her activity is limited by LONG. She is not very physically active but spends a lot of time knitting. She manages well at home. Soc Hx: , lives alone in [place], [place] Tob - Quit 17 years ago [...] Her behavior is normal. Vitals reviewed. Labs: not done Assessment and Plan: Ms. Strickland is a 76 yo female diagnosed with adenocarcinoma of the ascending colon in early 02/07 after presenting with abdominal pain, nausea and vomiting. On 01/23/17 she underwent a right hemicolectomy. The pathology report is above, high grade adenocarcinoma with 1/14 LN's involved, margin negative. The CT abd/pelvis did not show evidence of metastatic disease. She did not have a chest CT done. I will order that. We discussed the diagnosis, prognosis and treatment options today. She was told that, given the LN involvement (and assuming the chest CT is negative), this represents stage III colon cancer and [...] to a germline mutation, ie Renteria Syndrome. Will ask that BRAF testing to be done for further analysis of this. If aBRAF mutation is present, this would suggest that this is acquired, related to hypermethylation. Ifa BRAF mutation is not present, then germline [...] a patient in this age group, I would recommend Folfox in her case. We went over the schedule of therapy - 5FU, leucovorin and oxaliplatin are given day followed by a46-48 hour infusion of 5FU with cycles repeated every two weeks. The current recommended duration of treatment is 12 cycles or about 6 months. Potential side effects were discussed, including nausea and vomiting, myelosuppression with associated risks of bleeding, infection and dose delays, stomatitis, diarrhea, dehydration, fatigue, peripheral neuropathy which may be exacerbated by cold exposurebut which may be cumulative and permanent even in the absence of cold, laryngeal dysesthesia, angina/IL, hypersensitivity reactions and others. Because of the infusional component of therapy, a mediport is required. She was given informational handouts regarding these medications. Her son asked about a colonoscopy. Because she presented with a bowel obstruction, she did not havethis done and I agree that it should be done. I will defer timing of that to Dr. Caruso. Therefore, will order chest CT, referral to Dr. Caruso for mediport and discussion of colonoscopy and will plan to see her again in three weeks. If she is doing well and the abdominal incisions continue to heal, we will plan to start therapy soon thereafter. documented in this encounter Plan of Treatment Scheduled Orders Name Type Priority Associated Diagnoses Orde r Schedule Specimen to Pathology Additional Testing Pathology/Cytol ogy Routine Malignant neoplasm of ascending colon Ordered: 03/03/2017 Scheduled Referrals Name Type Priority Associated Diagnoses Orde r Schedule Referral to General Surgery Outpatient Referral Routine Malignant neoplasm of ascending colon Ordered: 03/04/2017 documented as of this encounter Procedures Procedure Name Priority Date/Time Associated Diagnosis Comments IMPLANTABLE DEVICES SCAN 03/15/2017 12:00 AM EDT documented in this encounter Results * SCAN DOC: IMPLANTABLE DEVICES (03/15/2017 12:00 AM EDT) Narrative 03/15/2017 12:00 AM EDT Ordered by an unspecified provider. Scanning Provider MEDIA MGR SCAN EXT O RDR/RSLT documented in this encounter Visit Diagnoses Diagnosis Malignant neoplasm of ascending colon documented in this encounter Care Teams Chief Nurse Relationship Specialty Start Date End Date Poly Copeland MD [address] [address] PCP - General 09/15/10 documented as of this encounter
--- OUTSIDE RECORDS SUMMARY | 2024-09-11 10:58 | XMS_ITS | Encounter Summary ---
Author Organization [facility] Address [facility] [place] [address] Care Team Providers Care Street Worker Name Role Phone Poly Copeland MD Primary Care Provider [phone] Encounter Details Date Type Department Care Team (Latest Contact Info) Description 12/23/2015 - 12/23/2015 11:59 PM EST Hospital Encounter Radiology Library at [facility] [place] [place] [address] Tucker Calle MD [facility] [place] [address] Screening breast examination Discharge Disposition: Home Social [...] Comments FILM LIBRARY STORAGE ONLY MAMMO Routine 12/23/2015 12:00 AM EST Screening breast examination documented in this encounter Results * Film Library- Storage Only Mammo (12/23/2015 12:00 AM EST) Narrative RAD - 01/28/2017 11:38 AM EDT This exam is for storage only and is auto-finalizing. Tucker Calle MD IMG FILM LIBRARY ORD ERABLES [place], [place] documented in this encounter Visit Diagnoses Diagnosis Screening breast examination Other screening breast examination documented in this encounter Care Teams Street Worker Relationship Specialty Start Date End Date Poly Copeland MD [address] [place] [address] PCP - General 09/15/10 documented as of this encounter
--- OUTSIDE RECORDS SUMMARY | 2024-09-11 10:59 | XMS_ITS | Encounter Summary ---
Author Organization [facility] Address [address] [place] [address] Care Team Providers Care Guinea Pig Breeder Name Role Phone Poly Copeland MD Primary Care Provider [phone] Encounter Details Date Type Department Care Team (Late st Contact Info) Description 01/24/2020 Lab Requisition [facility] Pathology & Laboratory Medicine - [facility] [address] [place] [address] Unknown, Provider, Social History Tobacco Use Types Packs/Day Years Used Date Smoking Tobacco: Never Assessed Comments Unknown Sex and Gender Information Value Date Recorded Sex Assigned at Not on file Legal Sex Female 18:26 EST Gender Identity Not on file Sexual Orientation Not on file documented as of this encounter Plan of Treatment Not on file documented as of this encounter Procedures Procedure Name Priority Date/Time Associated Diagnosis Comments CEA Routine 01/24/2020 8:16 EDT documented in this encounter Results * CEA (01/24/2020 8:16 EDT) CEA 1.3 See Note ng/mL 01/25/2020 10:02 EDT [facility] Comment: % Distribution of CEA (ng/mL): ??0.0 - 2.5 in 98.2% of Nonsmokers and 87.3% of Smokers ??2.6 - 5 in 1.8% of Nonsmokers and 8% of Smokers ??5.1 - 10.1 in 4.7% of Smokers NOTE: Serum CEA concentration should not be interpeted as absolute evidence for the presence or absence of malignant disease. ?? Assayed on Siemens ADVIA Centaur XPT using chemiluminescent technology. ??Values obtained by different assay methods cannot be used interchangeably. Blood VENOUS BLOOD / Unknown 01/24/2020 8:16 EDT 01/24/2020 15:49 EDT us Provider Unknown CHEMISTRY & BLOOD GAS ORDERA BLES Final Result [facility] [address] [place] [address] documented in this encounter Visit Diagnoses Not on filedocumented in this encounter Care Teams Guinea Pig Breeder Relationship Specialty Start Date End Date Poly Copeland MD [address] [place] [address] PCP - General 10/29/09 documented as of this encounter
--- OUTSIDE RECORDS SUMMARY | 2024-09-11 10:59 | XMS_ITS | Encounter Summary ---
Author Organization [facility] Address [address] [place] [address] Care Team Providers Care Warp Picker Name Role Phone Poly Copeland MD Primary Care Provider [phone] Encounter Details Date Type Department Care Team (Late st Contact Info) Description 12/29/2010 Results Only [facility] [phone] Marcio Em MD [address] [address] Social History Tobacco Use Types Packs/Day Years [...] Procedure Name Priority Date/Time Associated Diagnosis Comments CYTOPATHOLOGY Routine 12/29/2010 0:00 EST documented in this encounter Results * CYTOPATHOLOGY (12/29/2010 0:00 EST) Pathology Report: CYTOPATHOLOGY REPORT ? Reports generated via electronic interface contain original data; ? however they are lacking the format of the original report. ? Caution should be taken when reading/interpreti ng unformatted reports. ? Name: ? KELLY QUIÑONES ? Accession #: ? [id number] ? : ? 1940 (Age: 70) ??F ?Collect Date: ? 12/29/2010 ? Location: ? [facility] ? Receive Date: ? 12/30/2010 ? Provider: ? MARCIO NISBET MD ? Copy to: ?POLY M DOBBERTIN MD ? CYTOLOGIC DIAGNOSIS: ? Urine, voided, cytologic evaluation: ? - No malignant cells identified. ? Document reviewed and electronically signed by: ? KARAN L HAN MD ? Report Date: ??12/30/2010 13:42 ? By the signature above, the attending physician certifies that he/she has ? personally conducted a gross and/or microscopic examination of the described ? specimens and rendered or confirmed the above diagnosis. ? Specimen Type: ? Urine, Voided ? Clinical History: ? Hematuria. ? Gross Description: ? One vial of Cytolyt was received and processed by selective cellular ? enhancement technique. ? End of Report ? [facility] 12/29/2010 12/30/2010 7:5 4 EST us Marcio Em MD PATHOLOGY ORDERABLES Final Re sult [facility] [address] [place] [address] documented in this encounter Visit Diagnoses Not on filedocumented in this encounter Care Teams Warp Picker Relationship Specialty Start Date End Date Poly Copeland MD [address] [place] [address] PCP - General 10/29/09 documented as of this encounter
--- OUTSIDE RECORDS SUMMARY | 2024-09-11 10:59 | XMS_ITS | Encounter Summary ---
Author Organization [facility] Address [address] [place] [address] Care Team Providers Care Emblem Fuser Tender Name Role Phone Poly Copeland MD Primary Care Provider [phone] Encounter Details Date Type Department Care Team (Late st Contact Info) Description 01/11/2001 Results Only [facility] [address] [place] [address] Radha Lau FNP [address] [place] [address] Social History Tobacco Use Types Packs/Day Years [...] Priority Date/Time Associated Diagnosis Comments CYTOPATHOLOGY Routine 01/11/2001 0:00 EST documented in this encounter Results * CYTOPATHOLOGY (01/11/2001 0:00 EST) Pathology Report: CYTOPATHOLOGY REPORT Reports generated via electronic interface contain original data; however they are lacking the format of the original report. Caution should be taken when reading/interpreti ng unformatted reports. Name: ? KELLY QUIÑONES ? Accession #: ? [id number] : ? 1940 (Age: 60) ??F ?Collect Date: ? 01/11/2001 Location: ? [facility] ? Receive Date: ? 01/16/2001 Provider: ?RADHA BANGURAP Copy to: ? Specimen/Source: ?Conventional Pap Test, Source Not Provided Last Menstrual Period: ? Treatment History: ? Hysterectomy ? SPECIMEN ADEQUACY ? Satisfactory for evaluation. GENERAL CATEGORIZATION ? Within Normal Limits ? Document reviewed and electronically signed by: ? Edith Peñaloza, ??SCT(ASCP) ? Report Date: ??01/17/2001 07:35 End of Report [facility] 01/11/2001 01/16/2001 us Radha CHATMAN PATHOLOGY ORDERABLES Final Resul t [facility] [address] [place] [address] documented in this encounter Visit Diagnoses Not on filedocumented in this encounter Care Teams Emblem Fuser Tender Relationship Specialty Start Date End Date Poly Copeland MD [address] [place] [address] [address] [place] [address] PCP - General 10/29/09 documented as of this encounter
--- OUTSIDE RECORDS SUMMARY | 2024-09-11 10:59 | XMS_ITS | Encounter Summary ---
Author Organization [facility] [place] [address] Care Team Providers Care Technology Solutions Architect Name Role Phone Poly Copeland MD Primary Care Provider Encounter Details Date Type Department Care Team (Latest Contact Info) Description 08/17/2011 - 08/17/2011 11:59 PM EDT Hospital Encounter Radiology Library at [facility] [place] [address] Tucker Calle MD [facility] [address] [address] Screening breast examination Discharge Disposition: Home Social History Tobacco Use Types Packs/Day Years Used Date Smoking Tobacco: Never Assessed Sex and Gender Information Value Date Recorded Sex Assigned at Not on file Gender Identity Female 10/25/2020 5:11 AM EST Sexual Orientation Not on file documented as of this encounter Medications at Time of Discharge Medication Sig Dispensed Refills Start Date End Date Cholecalciferol, Vitamin D3, (VITAMIN D) 1,000 unit Cap 09/30/2010 Calcium Carbonate (TUMS) 300 mg (750 mg) Chew 09/30/2010 11/16/2019 ACETAMINOPHEN/DP-HYDRAM HCL (TYLENOL PM ORAL) 09/30/2010 06/24/2017 documented as of this encounter Plan of Treatment Not on file documented as of this encounter Procedures Procedure Name Priority Date/Time Associated Diagnosis Comments FILM LIBRARY STORAGE ONLY MAMMO Routine 08/17/2011 12:00 AM EDT Screening breast examination documented in this encounter Results * Film Library- Storage Only Mammo (08/17/2011 12:00 AM EDT) Narrative RAD - 01/28/2017 11:44 AM EDT This exam is for storage only and is auto-finalizing. Tucker Calle MD IMG FILM LIBRARY ORD ERABLES [place], [place] documented in this encounter Visit Diagnoses Diagnosis Screening breast examination Other screening breast examination documented in this encounter Care Teams Technology Solutions Architect Relationship Specialty Start Date End Date Poly Copeland MD [address] [place] [address] PCP - General 09/15/10 documented as of this encounter
--- OUTSIDE RECORDS SUMMARY | 2024-09-11 10:59 | XMS_ITS | Encounter Summary ---
Author Organization [facility] Address [address] [place] [address] Care Team Providers Care Clerk To Justice Name Role Phone Poly Copeland MD Primary Care Provider [phone] Encounter Details Date Type Department Care Team (Late st Contact Info) Description 11/13/2019 Lab Requisition [facility] Pathology & Laboratory Medicine - [facility] [address] [place] [address] Unknown, Provider, Social History Tobacco Use Types [...] Priority Date/Time Associated Diagnosis Comments CEA Routine 11/13/2019 11:06 EST documented in this encounter Results * CEA (11/13/2019 11:06 EST) CEA 0.8 See Note ng/mL 11/14/2019 10:16 EST [facility] Comment: % Distribution of CEA [...] used interchangeably. Blood VENOUS BLOOD / Unknown 11/13/2019 11:06 EST 11/13/2019 16:58 EST us Provider Unknown CHEMISTRY & BLOOD GAS ORDERA BLES Final Result Performing Organization Address City/State/[facility] Co de Phone Number [facility] [address] [place] [address] documented in this encounter Visit Diagnoses Not on filedocumented in this encounter Care Teams Clerk To Justice Relationship Specialty Start Date End Date Poly Copeland MD [address] [place] [address] PCP - General 10/29/09 documented as of this encounter
--- OUTSIDE RECORDS SUMMARY | 2024-09-11 10:59 | XMS_ITS | Encounter Summary ---
Author Organization [facility] Address [facility] [place] [address] Care Team Providers Care Fusion Juncture Grinder Name Role Phone Poly Copeland MD Primary Care Provider [phone] Encounter Details Date Type Department Care Team (Late st Contact Info) Description 02/19/2009 Orders Only [place] [address] James Gonzalez MD [facility] [place] [address] Social History Tobacco Use Types Packs/Day Years [...] Associated Diagnosis Comments SURGICAL PATHOLOGY REPORT Routine 02/19/2009 3:10 PM EDT documented in this encounter Results * Surgical Pathology Report (02/19/2009 3:10 PM EDT) Surgical Pathology Report - [id number] ? Location: [facility] The signing pathologist has (i) examined the relevant preparation(s) for the specimen(s) and (ii) rendered or confirmed the diagnosis(es). . ?Pathology Surgical Pathology Final Report Clinical Information Specimen Submitted: A - Left Partial Mastectomy: Left Breast Clinical History: Not provided Clinical Diagnosis: Left breast DCIS Gross Description Labeled/Fixative: ? Left partial mastectomy, left breast; fresh. Qty/Size/Weight: ?Single, 9.8 x 8.1 x 1.7 cm, 90 g. Radiograph: ? Received showing two needle localization wires ?traveling parallel to each other. ??The wire closer to the caudal surface travels directly adjacent to a hyperintense area with irregular margins. ??There is a biopsy clip at the center of this area. ??Wire runs through an area with punctate calcifications. ??The tip of this needle localization wire extends out beyond the edge of the specimen. Tissue Description: ?? According to the established protocol, the ink ?designations are red (medial), yellow (lateral), ?orange (cranial), green (caudal), black (deep), and ?blue (superficial). Tissue Sections: ?The specimen is serially sectioned perpendicular to ?the long axis from red/medial to yellow/lateral into ?sixteen slices, each averaging 0.61 cm in thickness. Lesion: ? Present. ? Size: ?3.0 x 1.5 x 1.4 cm. ? Color: ? Yellow-cortes. ? Consistency: ? Firm. ??The lesion consists of a biopsy site ?with surrounding area of firmness. ? Location: ?Lesion spans slices VII-XII. ? Nearest margin: ?In slice VII the lesion appears to be at the ?black margin, and 0.2 cm from the green margin. ?Lesion is 0.5 cm from the red margin in slice ?XI. Parenchyma: ? Cortes-yellow and fatty. Wire/Clip: ?Wire tip is located in slice IV. ??Biopsy clip is ?located in slice X in the center of the lesion. Sections/Processing : ??(1) slice I in its entirety; (2) half of slice III; ?(3) portion of slice V; (4-5) half of slice ; (6-7) half of slice VII with lesion approaching green and black margins; (8-10) half of slice VIII with lesion approaching green and black margins; (11-12) portion of slice IX with lesion approaching green and black margins; (13-15) portion of slice X with lesion; (16) portion of slice XI with lesion approaching red margin; (17-18) additional sections of lesion from slice XI; (19) retail sales representative section of slice XII; (20-21) retail sales representative sections of slice XIII; (22) retail sales representative section of slice XIV; (23) retail sales representative section of slice XVI. ??(R23) ??aje/LCS Microscopic Description Slides reviewed, microscopic description not recorded. . Diagnosis Specimen: ? Breast, left, partial mastectomy. 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 Grade: ? Low (High, Intermediate, Low) ?? Necrosis: ?Present (Present / Absent) ?? Pattern(s): ?Solid and cribriform Tumor Size: ? 4.9 cm (spanning slices -XIII) Resection Margins (RM): ?? Distance, RM(s): ? < 0.1 cm to green/caudal (A6) ?0.10 cm to black/deep (A12) Microcalcifications : ?Present and associated with ductal carcinoma ?in situ and fibrocystic disease Nipple Involvement: ? NA Correlation Bx's/Cytology: [id number] Other findings: ? 1. Fibrocystic disease with microcystic ? change, fibrosis and apocrine metaplasia. ?2. Prior biopsy site. Estrogen/progestin receptors: Performed on Block A15 ?? ER immunoreactivity: ? Positive (see Diagnostic Linder*) ?? [place] immunoreactivity: ? Positive (see Diagnostic Linder*) pTNM: pTis pNX pMX (AJCC, 6th edition, 2003) ? -------- *DIAGNOSIS LINDER ?? Negative immunoreactivity (no staining). ?? Equivocal immunoreactivity (1-15% staining). ?? Positive immunoreactivity (>15% staining). 02/21/09 CCB 02/21/09 Verified by: ? Adriano DOSonia ?Pathologist ?(Electronic Signature) The attending pathologist whose signature appears on this report has reviewed all diagnostic slides and has edited the gross and/or microscopic portion of the report in rendering the final pathologic diagnosis. BARON NAVARRO 02/19/2009 3:10 PM EDT James Gonzalez MD PATHOLOGY/CYTOLOGY ORDERABLES Performing Organization Address City/State/[facility] Co ak Phone Number BARON NAVARRO documented in this encounter Visit Diagnoses Not on filedocumented in this encounter Care Teams Fusion Juncture Grinder Relationship Specialty Start Date End Date Poly Copeland MD [address] [place] [address] PCP - General 09/15/10 documented as of this encounter
--- OUTSIDE RECORDS SUMMARY | 2024-09-11 10:59 | XMS_ITS | Encounter Summary ---
Author Organization [facility] Address [address] [place] [address] Care Team Providers Care Manager Material Name Role Phone Unavailable Primary Care Provider Unavailabl e Encounter Details Date Type Department Care Team (Late st Contact Info) Description 11/06/2008 Before PRISM Converted Visit ([facility]) [facility] Medicine [address] [phone] Tulio Maxwell MD [address] [place] [address] Social History Tobacco Use Types Packs/Day Years [...] Priority Date/Time Associated Diagnosis Comments SURGICAL PATHOLOGY Routine 11/06/2008 0:00 EST documented in this encounter Results * SURGICAL PATHOLOGY (11/06/2008 0:00 EST) Pathology Report: SURGICAL PATHOLOGY REPORT ? Reports generated via electronic interface contain original data; ? however they are lacking the format of the original report. ? Caution should be taken when reading/interpreti ng unformatted reports. ? Name: ? ISHMAEL, KELLY Ray ? Accession #: ? [id number] ? : ? 1940 (Age: 68) ??F ? Collect Date: ? 11/06/2008 ? Location: ? [facility] ? Receive Date: ? 11/06/2008 ? Provider: TULIO WALKO MD ? Copy to: JONAH M DOBBERTIN MD ? Final Pathologic Diagnosis: ? A. ?Colon, ascending, polyp, biopsy: ? 1. ?Tubular adenoma. ? B. ?Colon, sigmoid, 20 cm, polyp, biopsy: ? 1. ?Hyperplastic polyp. ? Document reviewed and electronically signed by: ? Lesley Velazco MD ? Report ??Date: 11/08/2008 15:21 ? By the signature above, the attending physician certifies that he/she has ? personally conducted a gross and/or microscopic examination of the described ? specimens and rendered or confirmed the above diagnosis. ? Specimen(s) Received: ? A. ?Polyp ascending colon ? B. ? Polyp sigmoid 20 cm ? Clinical History: ? Change in bowel habits ? Gross Description: ? Received in [facility]'s fixative labelled Ishmael and 1 ??polyp ascending colon is a 0.2 x 0.2 x 0.2 cm polypoid biopsy. ??The specimen is submitted ? intact as (A). ? [facility] fix[facility] labelled Ishmael and 2 ??polyp sigmoid 20 cm is a 0.4 x 0.3 x 0.3 cm polypoid biopsy. ??The specimen is submitted intact as ?? (B). ??(KELLEY Tessitore)/lgk ? End of Report ? [facility] 11/06/2008 11/06/2008 8:2 7 EST us Tulio Maxwell MD PATHOLOGY ORDERABLES Final Resul t [facility] [address] [place] [address] documented in this encounter Visit Diagnoses Not on filedocumented in this encounter
--- OUTSIDE RECORDS SUMMARY | 2024-09-11 10:59 | XMS_ITS | Encounter Summary ---
Author Organization [facility] Address [address] [place] [address] Care Team Providers Care Assisted Living Administrator Name Role Phone Unavailable Primary Care Provider Unavailabl e Encounter Details Date Type Department Care Team (Late st Contact Info) Description 10/27/2009 Orders Only [facility] Laboratory Services - [facility] ([facility] [address] [place] [address] Dylan Tiwari MD [address] [place] [address] Social History Tobacco Use Types Packs/Day Years [...] Date/Time Associated Diagnosis Comments SURGICAL PATHOLOGY Routine 10/27/2009 0:00 EST documented in this encounter Results * SURGICAL PATHOLOGY (10/27/2009 0:00 EST) Pathology Report: SURGICAL PATHOLOGY REPORT ? Reports generated via electronic interface contain original data; ? however they are lacking the format of the original report. ? Caution should be taken when reading/interpreti ng unformatted reports. ? Name: ? ISHMAEL, KELLY Ray ? Accession #: ? [id number] ? : ? 1940 (Age: 69) ??F ? Collect Date: ? 10/27/2009 ? Location: ? [facility] ? Receive Date: ? 10/28/2009 ? Provider: DYLAN TIWARI MD ? Copy to: JONAH M DOBBERTIN MD ? Final Pathologic Diagnosis: ? Gallbladder, cholecystectomy: ? 1. ?Acute and chronic cholecystitis with reactive epithelial changes. ?? 2. ? Cholelithiasis. ? 3. ? Cystic duct lymph node with reactive features. ? Document reviewed and electronically signed by: ? Lima Cheema, ? Report ??Date: 10/29/2009 22:14 ? By the signature above, the attending physician certifies that he/she has ? personally conducted a gross and/or microscopic examination of the described ? specimens and rendered or confirmed the above diagnosis. ? Specimen(s) Received: ? GB and stone ? Clinical History: ? Biliary colic ? Gross Description: ? Received in formalin labelled Ishmael, Preciousnetta and gallbladder and ? stone is a 10.5 cm in length by 4.0 cm in diameter gallbladder, received ? closed, which includes a 1.5 cm in length by 0.4 cm in diameter cystic duct. ? The proximal cystic duct margin is black inked. ??There is a 2.0 x 1.2 x 1.0 cm ?? salamanca, focally salamanca-red, firm cystic duct lymph node. ??The gallbladder is impacted with dozens of fragments of mixed type choleliths which range from 2.0 cm to 0.2 cm in greatest dimension. ??The gallbladder mucosa is salamanca-light red to focally ?? salamanca-dark red, slightly trabecular, and distally is hyperemic. ??The gallbladder ?? wall measures 0.2 cm in thickness. ??The serosa is dull, salamanca-white, and focally ?? hyperemic. ??Sections of the specimen are submitted as follows: ? BLOCK CALDERÓN ? A1 ?Cystic duct margin (en face) and two sections of gallbladder ? A2, A3 ?Cystic duct lymph node, five sections, submitted entirely ? (SarayKathryn Betancourtervin)/ljn ? End of Report ? [facility] 10/27/2009 10/28/2009 9:0 3 EST us Dylan Tiwari MD PATHOLOGY ORDERABLES Final Result [facility] [address] [place] [address] documented in this encounter Visit Diagnoses Not on filedocumented in this encounter
--- OUTSIDE RECORDS SUMMARY | 2024-09-11 10:59 | XMS_ITS | Encounter Summary ---
Author Organization [facility] Address [address] [place] [address] Care Team Providers Care Travel Journalist Name Role Phone Poly Copeland MD Primary Care Provider [phone] Encounter Details Date Type Department Care Team (Late st Contact Info) Description 04/24/2022 Lab Requisition [facility] Pathology & Laboratory Medicine - [address] [id number] Outr Resulting Lab, Provider Social History Tobacco Use Types Packs/Day Years Used Date Smoking Tobacco: Never Assessed Interpersonal Safety Answer Date Record ed Physically Hurt Never 05/25/2020 Verbally Threaten Not on file 05/25/2020 Comments Unknown Sex and Gender Information Value Date Recorded Sex Assigned at Not on file Legal Sex Female 18:26 EST Gender Identity Not on file Sexual Orientation Not on file documented as of this encounter Plan of Treatment Not on file documented as of this encounter Procedures Procedure Name Priority Date/Time Associated Diagnosis Comments LYME AB Routine 04/24/2022 9:27 EDT documented in this encounter Results * LYME AB (04/24/2022 9:27 EDT) Lyme Ab Negative Negative 04/26/2022 11:53 EDT [facility] Blood VENOUS BLOOD / Unknown 04/24/2022 9:27 EDT 04/25/2022 18:29 EDT us Provider Outr Resulting Lab IMMUNOLOGY AND SEROL OGY ORDERABLES Final Result [facility] [address] [place] [address] documented in this encounter Visit Diagnoses Not on filedocumented in this encounter Care Teams Travel Journalist Relationship Specialty Start Date End Date Poly Copeland MD [address] [place] [address] PCP - General 10/29/09 documented as of this encounter
--- OUTSIDE RECORDS SUMMARY | 2024-09-11 10:59 | XMS_ITS | Clinical Summary ---
Author Organization [facility] Address [address] [place] [address] Care Team Providers Care Hydrographic Engineer Name Role Phone Poly Copeland MD Primary Care Provider [phone] Social History Tobacco Use Types Packs/Day Years Used Date Smoking Tobacco: Never Assessed Interpersonal Safety Answer Date Record ed Physically Hurt Never 05/25/2020 Verbally Threaten Not on file 05/25/2020 Comments Unknown Sex and Gender Information Value Date Recorded Sex Assigned at Not on file Legal Sex Female 18:26 EST Gender Identity Not on file Sexual Orientation Not on file Plan of Treatment Health Maintenance Due Date Last Done Comments Fall Risk Screening 2007 RSV Immunization ( o r 60+ Years) (1 - 1-dose 75+ series) 2017 COVID-19 Vaccine ( season) 2024 Insurance MEDICARE Care Teams Hydrographic Engineer Relationship Specialty Start Date End Date Poly Copeland MD [address] [place] [address] [address] [place] [address] PCP - General 10/29/09
--- OUTSIDE RECORDS SUMMARY | 2024-09-11 10:59 | XMS_ITS | Encounter Summary ---
Author Organization [facility] Address [address] [place] [address] Care Team Providers Care Comic Illustrator Name Role Phone Poly Copeland MD Primary Care Provider [phone] Encounter Details Date Type Department Care Team (Late st Contact Info) Description 12/30/2021 Lab Requisition [facility] Pathology & Laboratory Medicine - [facility] [address] [place] [address] Morro Alves MD [address] [place] [address] Encounter for screening for malignant neoplasm of colon Social History Tobacco Use Types Packs/Day [...] Priority Date/Time Associated Diagnosis Comments SURGICAL PATHOLOGY Today 12/30/2021 12 :54 EST Encounter for screening for malignant neoplasm of colon documented in this encounter Results * SURGICAL PATHOLOGY (12/30/2021 12:54 EST) Note to Patient The following pathology results have been interpreted by your pathologist and may be available to you before your health provider has had the opportunity to review them. Please allow time for your provider to receive these results and explore management options, if applicable. 12/31/2021 11:01 [facility] Final Diagnosis A. COLON, TRANSVERSE, POLYP, BIOPSY: - Sessile serrated adenoma. B. RECTUM, POLYP, BIOPSY: - Hyperplastic polyp. 12/31/2021 11:01 [facility] Attestation By the signature below, the attending physician certifies that they have 1) personally conducted a gross and/or microscopic examination of the described specimen(s), and/or personally interpreted the results of laboratory testing of the described specimen(s), and 2) personally rendered or confirmed the above diagnosis. 12/31/2021 11:01 [facility] at [address] Clinical History Hx colon cancer/screening; clinical diagnosis code: Z12.11 12/31/2021 11:01 [facility] Gross Description A. Received in formalin labelled with proper patient identification (initials J, L) and transverse colon polyp are 2 light salamanca tissues measuring 0.3 x 0.2 x 0.1 cm and 0.5 x 0.3 x 0.1 cm. Submitted intact in A1. B. Received in formalin labelled with proper patient identification (initials J, L) and rectal polyp are 2 light salamanca tissues measuring 0.3 x 0.2 x 0.1 cm and 0.4 x 0.2 x 0.1 cm. Submitted intact in B1. SARAH MARCUM(ASCP) 12/30/2021 18:35 12/31/2021 11:01 [facility] Performing Lab [facility] 12/31/2021 11:01 [facility] Scanned Images 12/31/2021 11:01 [facility] Tissue SPECIMEN FROM RECTUM / Unknown 12/30/2021 12:54 EST 12/30/2021 16:40 EST Tissue specimen (specimen) SPECIMEN FROM RECTUM / Unknown 12/30/2021 12:54 EST 12/30/2021 16:40 EST us Morro Alves MD PATHOLOGY ORDERABLES Fin al Result [facility] [address] [place] [address] documented in this encounter Visit Diagnoses Diagnosis Encounter for screening for malignant neoplasm of colon Special screening for malignant neoplasms, colon documented in this encounter Care Teams Comic Illustrator Relationship Specialty Start Date End Date Poly Copeland MD [address] [place] [address] PCP - General 10/29/09 documented as of this encounter
--- OUTSIDE RECORDS SUMMARY | 2024-09-11 10:59 | XMS_ITS | Referral Summary ---
Author Organization [facility] Address [address] [place] [address] Care Team Providers Care Branch Customer Service Representative Name Role Phone Poly Copeland MD Primary Care Provider [phone] Social History Tobacco Use Types Packs/Day Years Used Date Smoking Tobacco: Never Assessed Interpersonal Safety Answer Date Record ed Physically Hurt Never 05/25/2020 Verbally Threaten Not on file 05/25/2020 Comments Unknown Sex and Gender Information Value Date Recorded Sex Assigned at Not on file Legal Sex Female 18:26 EST Gender Identity Not on file Sexual Orientation Not on file Plan of Treatment Not on file Insurance Care Teams Branch Customer Service Representative Relationship Specialty Start Date End Date Poly Copeland MD [address] [place] [address] PCP - General 10/29/09
--- OUTSIDE RECORDS SUMMARY | 2024-09-11 10:59 | XMS_ITS | Encounter Summary ---
Author Organization [facility] [place] [address] Care Team Providers Care Early Childhood Teacher Name Role Phone Poly Copeland MD Primary Care Provider [phone] Encounter Details Date Type Department Care Team (Latest Contact Info) Description 08/28/2012 - 08/28/2012 11:59 PM EST Hospital Encounter Radiology Library at [facility] [place] [address] Tucker Calle MD [facility] [place] [address] Screening breast examination Discharge Disposition: Home Social [...] Comments FILM LIBRARY STORAGE ONLY MAMMO Routine 08/28/2012 12:00 AM EST Screening breast examination documented in this encounter Results * Film Library- Storage Only Mammo (08/28/2012 12:00 AM EST) Narrative RAD - 01/28/2017 11:43 AM EDT This exam is for storage only and is auto-finalizing. Tucker Calle MD IMG FILM LIBRARY ORD ERABLES [place], [place] documented in this encounter Visit Diagnoses Diagnosis Screening breast examination Other screening breast examination documented in this encounter Care Teams Early Childhood Teacher Relationship Specialty Start Date End Date Poly Copeland MD [address] [place] [address] PCP - General 09/15/10 documented as of this encounter
--- OUTSIDE RECORDS SUMMARY | 2024-09-11 10:59 | XMS_ITS | Encounter Summary ---
Author Organization [facility] [place] [address] Care Team Providers Care Principal Hardware Architect Name Role Phone Poly Copeland MD Primary Care Provider [phone] Encounter Details Date Type Department Care Team (Late st Contact Info) Description 07/30/2011 Orders [place] [address] James Gonzalez MD [facility] [place] [address] Breast cancer (Primary Dx) Social History Tobacco Use Types Packs/Day Years Used Date Smoking Tobacco: Never Assessed Sex and Gender Information Value Date Recorded Sex Assigned at Not on file Gender Identity Female 10/25/2020 5:11 AM EST Sexual Orientation Not on file documented as of this encounter Plan of Treatment Not on file documented as of this encounter Visit Diagnoses Diagnosis Breast cancer- Primary Malignant neoplasm of breast (female), unspecified site documented in this encounter Care Teams Principal Hardware Architect Relationship Specialty Start Date End Date Poly Copeland MD [address] [place] [address] PCP - General 09/15/10 documented as of this encounter
--- OUTSIDE RECORDS SUMMARY | 2024-09-11 10:59 | XMS_ITS | Encounter Summary ---
Author Organization [facility] Address [address] [place] [address] Care Team Providers Care Vp Product Management Name Role Phone Poly Copeland MD Primary Care Provider [phone] Encounter Details Date Type Department Care Team (Late st Contact Info) Description 08/11/2011 Results Only [facility] Laboratory Services - [facility] ([facility]) [address] [place], [place] [address] Poly Copeland MD [address] [place] [address] [address] [place] [address] Social History Tobacco Use Types Packs/Day Years [...] Procedure Name Priority Date/Time Associated Diagnosis Comments PAP TEST- RESULT ONLY Routine 08/11/2011 0:00 EDT documented in this encounter Results * PAP TEST- RESULT ONLY (08/11/2011 0:00 EDT) Pathology Report: CYTOPATHOLOGY REPORT Reports generated via electronic interface contain original data; however they are lacking the format of the original report. Caution should be taken when reading/interpreti ng unformatted reports. Name: ? KELLY QUIÑONES ? Accession #: ? [id number] ? : ? 1940 (Age: 71) ??F ?Collect Date: ? 08/11/2011 ? Location: ? [facility] ? Receive Date: ? 08/13/2011 ? Provider: POLY COPELAND MD Copy to: ? Final Report SPECIMEN ADEQUACY ? Satisfactory for Evaluation - assessment of transformation zone component not applicable ( e.g. atrophy, vaginal sample, hysterectomy) GENERAL CATEGORIZATION ? Negative for Intraepithelial Lesion or Malignancy ?? Menstural/Pregnanc y Status: ??Post Menopausal Other: Additional clinical information: H/O Breast CA Specimen/Source: ??Pap Test, Cervix/Endocervix, ThinPrep Imaging System with manual evaluation Document reviewed and electronically signed by: ? Elysia Be, CT(ASCP) ? Report ??Date: 08/19/2011 09:45 HPV with Pap Test ? Date Ordered: ? 08/19/2011 ? Status: ?? Signed Out ?Date Complete: ? 08/23/2011 ? By: ??System Interface ? Date Reported: ? 08/23/2011 ? Interpretation RESULT: Negative for HPV types 16, 18, 31, 33, 35, 39, 45, 51, 52, 56, 58, 59, and 68. Comments Document reviewed and electronically signed by: ? System Interface ? Report date: 08/23/2011 By the signature above, the attending physician certifies that he/she has personally conducted a gross and/or microscopic examination of the described specimens and rendered or confirmed the above diagnosis. End of Report [facility] 08/11/2011 08/13/2011 us Poly Copeland MD PATHOLOGY ORDERABLES Final Result Performing Organization Address City/State/[facility] Co de Phone Number [facility] [address] [place] [address] documented in this encounter Visit Diagnoses Not on filedocumented in this encounter Care Teams Vp Product Management Relationship Specialty Start Date End Date Poly Copeland MD [address] [place] [id number] PCP - General 10/29/09 documented as of this encounter
--- OUTSIDE RECORDS SUMMARY | 2024-09-11 10:59 | XMS_ITS | Encounter Summary ---
Author Organization [facility] [place] [address] Care Team Providers Care Qc Analyst Name Role Phone Poly Copeland MD Primary Care Provider [phone] Encounter Details Date Type Department Care Team (Late st Contact Info) Description 08/25/2014 Notes [place] [phone] Luisito Preciado RN Social History Tobacco Use Types Packs/Day Years Used Date Smoking Tobacco: Former Sex and Gender Information Value Date Recorded Sex Assigned at Not on file Gender Identity Female 10/25/2020 5:11 AM EST Sexual Orientation Not on file documented as of this encounter Progress Notes * Luisito Preciado RN - 08/25/2014 9:29 AM EST Comprehensive Breast Program Surgery Follow Up Note Range of motion of surgical arm complete Lymphedema present No Cosmesis-surgeon reported Cosmesis-patient reported Local or regional recurrence No Contralateral cancer present No Distant recurrence present No Date of last follow up 10/27/2011 LUISITO PRECIADO RN 08/25/2014 documented in this encounter Plan of Treatment Not on file documented as of this encounter Visit Diagnoses Not on filedocumented in this encounter Care Teams Qc Analyst Relationship Specialty Start Date End Date Poly Copeland MD [address] [place], [place] [address] PCP - General 09/15/10 documented as of this encounter
--- OUTSIDE RECORDS SUMMARY | 2024-09-11 10:59 | XMS_ITS | Encounter Summary ---
Author Organization [facility] Address [facility] [place] [address] Care Team Providers Care Hostess Cashier Name Role Phone Poly Copeland MD Primary Care Provider [phone] Encounter Details Date Type Department Care Team (Latest Contact Info) Description 10/25/2013 - 10/25/2013 11:59 PM EST Hospital Encounter Radiology Library [facility] [place] [address] Tucker Calle MD [facility] [place] [address] Screening breast examination Discharge Disposition: Home Social [...] Comments FILM LIBRARY STORAGE ONLY MAMMO Routine 10/25/2013 12:00 AM EST Screening breast examination documented in this encounter Results * Film Library- Storage Only Mammo (10/25/2013 12:00 AM EST) Narrative RAD - 01/28/2017 11:41 AM EDT This exam is for storage only and is auto-finalizing. Tucker Calle MD IMG FILM LIBRARY ORD ERABLES [place], [place] documented in this encounter Visit Diagnoses Diagnosis Screening breast examination Other screening breast examination documented in this encounter Care Teams Hostess Cashier Relationship Specialty Start Date End Date Poly Copeland MD [address] [place] [address] PCP - General 09/15/10 documented as of this encounter
--- OUTSIDE RECORDS SUMMARY | 2024-09-11 10:59 | XMS_ITS | Encounter Summary ---
Author Organization [facility] Address [facility] [place] [address] Care Team Providers Care Weaving Inspector Name Role Phone Poly Copeland MD Primary Care Provider [phone] Encounter Details Date Type Department Care Team (Late st Contact Info) Description 01/21/2009 Orders [place] [address] Katrina Holt MD [facility] DR DIAGNOSTIC [place] [address] Social History Tobacco Use Types Packs/Day Years [...] Associated Diagnosis Comments SURGICAL PATHOLOGY REPORT Routine 01/21/2009 12:02 PM EDT documented in this encounter Results * Surgical Pathology Report (01/21/2009 12:02 PM EDT) Surgical Pathology Report - [id number] ? Location: [facility]W The signing pathologist has (i) examined the relevant preparation(s) for the specimen(s) and (ii) rendered or confirmed the diagnosis(es). . ?Pathology Surgical Pathology Final Report Clinical Information Specimen Submitted: A - Left breast SBX 10 gauge Clinical History: Four calcs L breast Clinical Diagnosis: DCIS, FCD Report to: Poly Copeland MD [facility] [address] [place] [address] Gross Description Specimen: ?Received in two containers. 1 - Labeled/Fixativ e: ??Left breast calcs, formalin. Qty/Size/Weight : ? Three needle core biopsies, ranging from 1.0 cm to ? 2.0 cm. ??cylindrical cores of schaefer-white and ? yellow-white, fatty and fibrofatty tissue. Sections/Proces sing: ?? Submitted in (A1). 2 - Labeled/Fixativ e: ??Left breast no calcs, formalin. Qty/Size/Weight : ? Three needle core biopsies, ranging from 1.6 cm to ? 3.0 cm. ??Partially fragmented cylindrical cores of ? schaefer-white and yellow-white, fatty and fibrofatty ? tissue. Sections/Proces sing: ?? Submitted in (A2). ??(T2) ??aje/EJR Microscopic Description Slides reviewed, microscopic description not recorded. Diagnosis Needle biopsies: ?Left breast. 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 Zane Collier MD ?Pathologist ?(Electronic Signature) The attending pathologist whose signature appears on this report has reviewed all diagnostic slides and has edited the gross and/or microscopic portion of the report in rendering the final pathologic diagnosis. BARON NAVARRO 01/21/2009 12:0 2 PM EDT Katrina Calhoun MD PATHOLOG Y/CYTOLOGY ORDERABLES Performing Organization Address City/State/[facility] Co de Phone Number [facility] documented in this encounter Visit Diagnoses Not on filedocumented in this encounter Care Teams Weaving Inspector Relationship Specialty Start Date End Date Poly Copeland MD [address] [place] [address] PCP - General 09/15/10 documented as of this encounter
--- OUTSIDE RECORDS SUMMARY | 2024-09-11 10:59 | XMS_ITS | Encounter Summary ---
Author Organization [facility] Address [address] [place] [address] Care Team Providers Care Accident Examiner Name Role Phone Poly Copeland MD Primary Care Provider [phone] Encounter Details Date Type Department Care Team (Late st Contact Info) Description 11/06/2021 Lab Requisition [facility] Pathology & Laboratory Medicine - [facility] [address] [place], [place] [id number] Outr Resulting Lab, Provider Social History Tobacco [...] Priority Date/Time Associated Diagnosis Comments CEA Routine 11/06/2021 13:39 EST documented in this encounter Results * CEA (11/06/2021 13:39 EST) CEA 1.1 See Note ng/mL 11/06/2021 22:41 EST [facility] Comment: % Distribution of CEA [...] used interchangeably. Blood VENOUS BLOOD / Unknown 11/06/2021 13:39 EST 11/06/2021 21:35 EST us Provider Outr Resulting Lab CHEMISTRY & BLOOD GA S ORDERABLES Final Result Performing Organization Address City/State/[facility] Co de Phone Number [facility] [address] [place] [address] documented in this encounter Visit Diagnoses Not on filedocumented in this encounter Care Teams Accident Examiner Relationship Specialty Start Date End Date Poly Copeland MD [address] [place] [address] PCP - General 10/29/09 documented as of this encounter
--- OUTSIDE RECORDS SUMMARY | 2024-09-11 10:59 | XMS_ITS | Encounter Summary ---
Author Organization [facility] Address [address] [place] [address] Care Team Providers Care High Rigger Name Role Phone Poly Copeland MD Primary Care Provider [phone] Encounter Details Date Type Department Care Team (Late st Contact Info) Description 10/27/2020 Lab Requisition [facility] Pathology & Laboratory Medicine - [facility] [address] [place], [place] [id number] Outr Resulting Lab, Provider Social History Tobacco [...] Priority Date/Time Associated Diagnosis Comments CEA Routine 10/27/2020 12:00 EST documented in this encounter Results * CEA (10/27/2020 12:00 EST) CEA 1.0 See Note ng/mL 10/27/2020 20:14 EST [facility] Comment: % Distribution of [...] used interchangeably. Blood VENOUS BLOOD / Unknown 10/27/2020 12:00 EST 10/27/2020 16:10 EST us Provider Outr Resulting Lab CHEMISTRY & BLOOD GA S ORDERABLES Final Result Performing Organization Address City/State/[facility] Co de Phone Number [facility] [address] [place] [address] documented in this encounter Visit Diagnoses Not on filedocumented in this encounter Care Teams High Rigger Relationship Specialty Start Date End Date Poly Copeland MD [address] [place] [address] PCP - General 10/29/09 documented as of this encounter
--- OUTSIDE RECORDS SUMMARY | 2024-09-11 10:59 | XMS_ITS | Encounter Summary ---
Author Organization [facility] Address [address] [place] [address] Care Team Providers Care Retail Worker Name Role Phone Poly Copeland MD Primary Care Provider [phone] Encounter Details Date Type Department Care Team (Late st Contact Info) Description 09/10/2019 Lab Requisition [facility] Pathology & Laboratory Medicine - [facility] [address] [place] [address] Unknown, Provider, Social History Tobacco Use Types [...] Priority Date/Time Associated Diagnosis Comments CEA Routine 09/10/2019 9:23 EST documented in this encounter Results * CEA (09/10/2019 9:23 EST) CEA 1.3 See Note ng/mL 09/11/2019 10:42 EST [facility] Comment: % Distribution of [...] used interchangeably. Blood VENOUS BLOOD / Unknown 09/10/2019 9:23 EST 09/10/2019 15:39 EST us Provider Unknown CHEMISTRY & BLOOD GAS ORDERA BLES Final Result [facility] [address] [place] [address] documented in this encounter Visit Diagnoses Not on filedocumented in this encounter Care Teams Retail Worker Relationship Specialty Start Date End Date Poly Copeland MD [address] [place] [address] PCP - General 10/29/09 documented as of this encounter
--- OUTSIDE RECORDS SUMMARY | 2024-09-11 10:59 | XMS_ITS | Encounter Summary ---
Author Organization [facility] Address [address] [place] [address] Care Team Providers Care Food Cooking Machine Operator Name Role Phone Poly Copeland MD Primary Care Provider [phone] Encounter Details Date Type Department Care Team (Late st Contact Info) Description 05/11/2021 Lab Requisition [facility] Pathology & Laboratory Medicine - [facility] [address] [place], [place] [id number] Outr Resulting Lab, Provider Social History Tobacco [...] Priority Date/Time Associated Diagnosis Comments CEA Routine 05/11/2021 9:00 EDT documented in this encounter Results * CEA (05/11/2021 9:00 EDT) CEA <2.0 See Note ng/mL 05/11/2021 17:13 EDT [facility] Comment: % Distribution of [...] used interchangeably. Blood VENOUS BLOOD / Unknown 05/11/2021 9:00 EDT 05/11/2021 15:47 EDT us Provider Outr Resulting Lab CHEMISTRY & BLOOD GA S ORDERABLES Final Result [facility] [address] [place] [address] documented in this encounter Visit Diagnoses Not on filedocumented in this encounter Care Teams Food Cooking Machine Operator Relationship Specialty Start Date End Date Poly Copeland MD [address] [place] [address] PCP - General 10/29/09 documented as of this encounter
--- OUTSIDE RECORDS SUMMARY | 2024-09-11 10:59 | XMS_ITS | Encounter Summary ---
Author Organization [facility] Address [address] [place] [address] Care Team Providers Care Asbestos Hazard Abatement Worker Name Role Phone Poly Copeland MD Primary Care Provider [phone] Encounter Details Date Type Department Care Team (Late st Contact Info) Description 05/27/2022 Lab Requisition [facility] Pathology & Laboratory Medicine - [facility] [address] [place], [place] [address] Outr Resulting Lab, Provider Social History Tobacco [...] Priority Date/Time Associated Diagnosis Comments CEA Routine 05/27/2022 9:34 EDT documented in this encounter Results * CEA (05/27/2022 9:34 EDT) CEA 1.0 See Note ng/mL 05/28/2022 9:15 EDT [facility] Comment: % Distribution [...] used interchangeably. Blood VENOUS BLOOD / Unknown 05/27/2022 9:34 EDT 05/27/2022 16:57 EDT us Provider Outr Resulting Lab CHEMISTRY & BLOOD GA S ORDERABLES Final Result [facility] [address] [place] [address] documented in this encounter Visit Diagnoses Not on filedocumented in this encounter Care Teams Asbestos Hazard Abatement Worker Relationship Specialty Start Date End Date Poly Copeland MD [address] [place] [address] PCP - General 10/29/09 documented as of this encounter
--- OUTSIDE RECORDS SUMMARY | 2024-09-11 10:59 | XMS_ITS | Encounter Summary ---
Author Organization [facility] [place] [address] Care Team Providers Care Chief Librarian Extension Department Name Role Phone Poly Copeland MD Primary Care Provider [phone] Reason for Visit * Reason Comments Breast Cancer left DCIS Encounter Details Date Type Department Care Team (Late st Contact Info) Description 10/27/2011 11:15 AM EST Follow-Up [place] [phone] aJmes Gonzalez MD [facility] [place] [address] Breast cancer in situ (Primary Dx) Discharge Disposition: Home Social History Tobacco Use Types Packs/Day Years Used Date Smoking Tobacco: Former Sex and Gender Information Value Date Recorded Sex Assigned at Not on file Gender Identity Female 10/25/2020 5:11 AM EST Sexual Orientation Not on file documented as of this encounter Last Filed Vital Signs Vital Sign Reading Time Taken Comments Blood Pressure 131/71 10/27/2011 11:19 AM EST Pulse 77 10/27/2011 11:19 AM EST Temperature 36.4 ??C (97.5 ??F) 10/27/2011 11:[address] Respiratory Rate 16 10/27/2011 11:19 AM EST Oxygen Saturation - - Inhaled Oxygen Concentration - - Weight 96.7 kg (213 lb 3 oz) 10/27/2011 11:19 AM EST Height 162 cm (5' 3.78) 10/27/2011 11:19 AM EST Body Mass Index 36.85 10/27/2011 11:19 AM EST documented in this encounter Progress Notes * James Gonzalez MD - 10/27/2011 11:56 AM EST Diagnosis: Left breast DCIS. Reason for Evaluation: Patient returns for yearly routine surgical followup visit. 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 This surgery was in February of 2009. She continues for followup, as well as yearly mammograms. She had a mammogram of the right breast performed in July of 2011 at [facility]. This was within normal limits. The patient has no subjective complaints relative to the operative site or the right breast. Examination: In general the patient is a well-developed, well-nourished female in no apparent distress. She is oriented x3. Vital signs are per the nursing notes. Examination of the head and neck: Pupils are equal and reactive. Sclerae are nonicteric. No gross abnormalities of ear, nose, or throat. Lymphatics: No palpable cervical, supraclavicular, or axillary adenopathy. The left chest wall incision is well healed. No palpable or visible evidence of local recurrence. The right breast is without a palpable mass. No skin or nipple changes are noted. The abdomen is soft without palpable abnormality. Assessment: DANIEL. Plan: I will see her back in one year. She is due for repeat right breast mammogram in July, which she gets at [facility]. documented in this encounter Plan of Treatment Not on file documented as of this encounter Visit Diagnoses Diagnosis Breast cancer in situ- Primary Carcinoma in situ of breast documented in this encounter Care Teams Chief Librarian Extension Department Relationship Specialty Start Date End Date Poly Copeland MD [address] [place] [address] PCP - General 09/15/10 documented as of this encounter
--- OUTSIDE RECORDS SUMMARY | 2024-09-11 10:59 | XMS_ITS | Encounter Summary ---
Author Organization [facility] Address [address] [place] [address] Care Team Providers Care Biztalk Developer Name Role Phone Poly Copeland MD Primary Care Provider [phone] Encounter Details Date Type Department Care Team (Late st Contact Info) Description 06/12/2018 Documentation Visit [facility] Hematology & Oncology - [facility] [address] [place], [place] [address] Sofia Bishop, MS [address] [place], [place] [id number] Social History Tobacco Use Types Packs/Day Years Used Date Smoking Tobacco: Never Assessed Comments Unknown Sex and Gender Information Value Date Recorded Sex Assigned at Not on file Legal Sex Female 18:26 EST Gender Identity Not on file Sexual Orientation Not on file documented as of this encounter Progress Notes * Sofia Bishop, MS - 06/12/2018 1442 EDT See nolen syndrome screening document flowsheet documented in this encounter Plan of Treatment Not on file documented as of this encounter Visit Diagnoses Not on filedocumented in this encounter Care Teams Biztalk Developer Relationship Specialty Start Date End Date Poly Copeland MD [address] [place] [phone] PCP - General 10/29/09 documented as of this encounter
--- OUTSIDE RECORDS SUMMARY | 2024-09-11 10:59 | XMS_ITS | Encounter Summary ---
Author Organization [facility] Address [address] [place] [address] Care Team Providers Care Therapist Speech Name Role Phone Poly Copeland MD Primary Care Provider [phone] Encounter Details Date Type Department Care Team (Latest Contact Info) Description 01/23/2017 13:33 EDT - 01/23/2017 23:59 EDT Hospital Encounter [address] [address] Unknown, Provider, MD Discharge Disposition: Home or Self Care Social History Tobacco Use Types Packs/Day Years Used Date Smoking Tobacco: Never Assessed Comments Unknown Sex and Gender Information Value Date Recorded Sex Assigned at Not on file Legal Sex Female 18:26 EST Gender Identity Not on file Sexual Orientation Not on file documented as of this encounter Discharge Disposition Disposition Code Departure Means Destination Home or Self [facility] documented in this encounter Plan of Treatment Not on file documented as of this encounter Visit Diagnoses Not on filedocumented in this encounter Care Teams Therapist Speech Relationship Specialty Start Date End Date Poly Copeland MD [address] [place] [address] [address] [place] [address] PCP - General 10/29/09 documented as of this encounter
--- OUTSIDE RECORDS SUMMARY | 2024-09-11 10:59 | XMS_ITS | Encounter Summary ---
Author Organization [facility] [place] [address] Care Team Providers Care Grain Broker And Market Operator Name Role Phone Poly Copeland MD Primary Care Provider [phone] Encounter Details Date Type Department Care Team (Late st Contact Info) Description 09/30/2010 11:00 AM EST [place] [address] James Gonzalez MD [facility] [place] [address] Discharge Disposition: Home Social History Tobacco Use [...] on filedocumented in this encounter Care Teams Grain Broker And Market Operator Relationship Specialty Start Date End Date Poly Copeland MD [address] [place] [address] PCP - General 09/15/10 documented as of this encounter
--- OUTSIDE RECORDS SUMMARY | 2024-09-11 10:59 | XMS_ITS | Encounter Summary ---
Author Organization [facility] Address [address] [place] [address] Care Team Providers Care Naval Designer Name Role Phone Poly Copeland MD Primary Care Provider [phone] Encounter Details Date Type Department Care Team (Late st Contact Info) Description 04/24/2022 Lab Requisition [facility] Pathology & Laboratory Medicine - [facility] [address] [place], [place] [address] Outr Resulting Lab, Provider Social History Tobacco [...] Procedure Name Priority Date/Time Associated Diagnosis Comments ZZCOVID-19 TEST [facility] PCR Today 04/24/2022 9:21 EDT COVID-19 TESTING Routine 04/24/2022 9:21 EDT documented in this encounter Results * COVID-19 TEST [facility] PCR (04/24/2022 9:21 EDT) Swab 04/24/2022 9:21 EDT 04/24/2022 21:51 EDT us Provider Outr Resulting Lab MICROBIOLOGY - GENER AL ORDERABLES Final Result [facility] [address] [place] [address] * COVID-19 TESTING (04/24/2022 9:21 EDT) COVID-19 rt-PCR Result Negative Negative 04/25/2022 13:11 EDT [facility] Comment: This test has not been FDA cleared or approved. This test has been authorized by FDA under an EUA for use by authorized laboratories. This test has been authorized only for detection of nucleic acid from 2019-nCoV, not for any other viruses or pathogens. This test is only authorized for the duration of the declaration that circumstances exist justifying the authorization of emergency use of in vitro diagnostic tests for detection and/or diagnosis of 2019-nCoV under section 564(b)(1) of Act, 21 U.S.C ?? 360bbb-3(b) (1), unless the authorization is terminated or revoked sooner. Negative results do not preclude 2019-nCoV infection and should not be used as the sole basis for treatment or other patient management decisions. Negative results must be combined with clinical observations, patient history, and epidemiological information. Testing was performed using the tre SARS-CoV-2 assay ([employer] on the Tre 6800 System Performing Lab Tre 6800 [facility] 04/25/2022 13:11 EDT [facility] Swab 04/24/2022 9:21 EDT 04/24/2022 21:51 EDT us Provider Outr Resulting Lab MICROBIOLOGY - GENER AL ORDERABLES Final Result [facility] [address] [place] [address] documented in this encounter Visit Diagnoses Not on filedocumented in this encounter Care Teams Naval Designer Relationship Specialty Start Date End Date Poly Copeland MD [address] [place] [address] PCP - General 10/29/09 documented as of this encounter
--- OUTSIDE RECORDS SUMMARY | 2024-09-11 10:59 | XMS_ITS | Encounter Summary ---
Author Organization [facility] Address [address] [place] [address] Care Team Providers Care Hot Dip Galvanizer Name Role Phone Poly Copeland MD Primary Care Provider [phone] Encounter Details Date Type Department Care Team (Late st Contact Info) Description 01/23/2017 Results Only [facility] [phone] Cece Costa, DO [address] [place] [address] Social History Tobacco Use Types Packs/Day Years [...] Date/Time Associated Diagnosis Comments SURGICAL PATHOLOGY Routine 01/23/2017 21 :46 EDT documented in this encounter Results * SURGICAL PATHOLOGY (01/23/2017 21:46 EDT) Pathology Report: SURGICAL PATHOLOGY REPORT Reports generated via electronic interface contain original data; however they are lacking the format of the original report. Caution should be taken when reading/interpreting unformatted reports. Name: ? KELLY QUIÑONES ? Accession #: ? [id number] ? : ? 1940 (Age: 76) ??F ? Collect Date: ? 01/23/2017 ? Location: ? [facility] ? Receive Date: ? 01/24/2017 ? Provider: CECE COSTA DO Copy to: POLY RUBY MS ? Final Pathologic Diagnosis: A. 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 See synoptic report and comment. - ??AJCC 8th ed.: PT4a pN1a. - ??Metastatic carcinoma involves one of fourteen regional lymph nodes (11/06). - ??Lymph-vascular and perineural invasions identified. - ??Distal and proximal resection margins and appendix negative for carcinoma. ? Specimen ? Specimen: Right colon, terminal ileum, appendix ? Procedure: Right hemicolectomy ? Specimen Length: 19 cm , en toto ? Primary Tumor Site: Ascending colon ? Additional Sites Involved by Tumor: Not identified ? Multiple Primary Sites: Not identified ? Macroscopic Tumor Perforation: Not identified ? Macroscopic Intactness of Mesorectum: Not applicable Tumor ? Histologic Type: Moderate to poorly differentiated, microsatellite instability-high adenocarcinoma ? Histologic Grade: High grade ? Microsatellite instability high cancer, see comment section Extent ? Tumor Location: Right colon (ascending colon) ? Tumor Size: 6.3 cm ?Additional dimensions: 6.0 x 0.3 cm ? Microscopic Tumor Extension: Invasive through the muscularis propria into the mesentery and focally serosa Margins ? Status of Margin Involvement: Uninvolved ?Distance of Invasive Carcinoma from Closest Margin: 8.3 cm from the radial margin ?Margin: ?? radial margin ? Proximal Margin: Uninvolved by carcinoma or dysplasia ? Distal Margin: Uninvolved by carcinoma or dysplasia ? Circumferential (Radial) or Mesenteric Margin: Uninvolved by carcinoma ? Deep Margin: Not applicable ? Accessory Findings ? Treatment Effect: ?? Not identified/ not known ? Lymph-Vascular Invasion: Identified ? Perineural Invasion: Identified ? Tumor Deposits (discontinuous extramural extension: Not identified ? Type of Polyp in Which Invasive Carcinoma Arose: adenomatous Pathologic Staging (pTNM) ? TNM Descriptors: ? Primary Tumor (pT): ??pT4a ? Regional Lymph Nodes (pN): ??pN1a: ??Metastasis to 1 regional lymph node ?Number of Lymph Nodes Examined: 14 ?Number of Lymph Nodes Involved: 1 ? Distant Metastasis (pM): not applicable/ not known Additional Pathologic Findings: Appendix with serrated/ hyperplastic change (serrated adenoma), negative for high-grade dysplasia or carcinoma. Background colon with patchy mucosal ischemia; colon and small bowel with serositis with adhesions. ? Ancillary Studies: Immunohistochemical staining for mismatched repair proteins. See below Comment: Preliminary results were reported to Dr. Costa at 12:30 PM on 01/28/2017. Results of immunohistochemical staining: ??Loss of MLH1/PMS2 and retention of MSH2 and MSH6 proteins The majority of colon cancers that have loss of MLH1/PMS2 protein are associated with somatic changes rather than an inherited mutation (Renteria syndrome). However, if additional testing to rule out Renteria syndrome is warranted in this individual, additional molecular testing, specifically MLH1 Promoter Methylation can be ordered upon obtaining preauthorization. ?? ANTIBODY(CLONE)(BLOCK) :RESULT MLH1 (M1, [place]) (11): Loss of expression in the tumor PMS2 (CIN0281, [place]) (11): Loss of expression in the tumor MSH2 ([id number], [place]) (11): Retained expression in tumor MSH6 (44, [place]) (11): Retained expression in tumor NOTE: ??One or more of the reagents used in immunohistochemical testing in this case may not have been cleared or approved by the U.S. Food and Drug Administration (FDA). ??The FDA has determined that such clearance or approval is not necessary. ??These tests are used for clinical purposes. ??They should not be regarded as investigational or for research. ??These reagents' performance characteristics have been determined by [facility]. ??The positive and negative controls worked appropriately. This laboratory is certified under the Clinical Laboratory Improvement Amendments of 1988 (CLIA-88) as qualified to perform high complexity clinical laboratory testing. ?? Document reviewed and electronically signed by: AMILCAR CHEW MD Report ??Date: 02/01/2017 14:58 By the signature above, the attending physician certifies that he/she has personally conducted a gross and/or microscopic examination of the described specimens and rendered or confirmed the above diagnosis. Specimen(s) Received: Ascending colon and staple line Clinical History: Cecal volvulus Gross Description: ? Received in formalin labelled with proper patient identification (initials J, L) and ascending colon and staple line is a segment of bowel, received open, that includes terminal ileum (3.0 cm in length x 4.5 cm in luminal circumference), cecum and ascending colon (16.0 cm in length x 7.5 cm in luminal circumference), and appendix (5.9 cm in length x 0.4 cm in diameter), with an unremarkable-appearing mesentery. ? There is an ulcerating salamanca-brown granular lesion in the ascending colon (6.3 cm x 6.0 in diameter and 0.3 cm in depth). ??The serosa at the lesion is obscured by mesenteric fat, but is salamanca-pink and glistening in focal areas. Sectioning of the lesion shows white firm areas extending into the mesenteric fat. The serosal surface at the lesion is ragged. The lesion is situated 10.5 cm from the proximal margin, 9.5 cm from the distal margin, 8.3 cm from the radial margin, and 3.1 cm from the ileocecal valve. ? The cecum is dilated (approximately 7.5 cm in diameter) and thinned (0.15 cm in thickness). The mucosa of the cecum is salamanca-pink and flattened. The serosa of the cecum is salamanca-pink and shiny. The uninvolved colonic mucosa is pink-salamanca with the usual folds and the average wall thickness is 0.5 cm. The mucosa of the terminal ileum is pink-salamanca and velvety with the usual folds and the average wall thickness is 0.5 cm. The serosa is pink-salamanca and smooth. The appendix is unremarkable. Several mesenteric lymph nodes are identified (0.2-0.5 cm in greatest dimension). ??Magnetic Observer sections are submitted as follows: INK CALDERÓN Blue-serosa over mass Black-radial margin Fithian-proximal appendix margin BLOCK CALDERÓN 1- ??proximal margin, en face 2- ??distal margin, adjacent to stapled margin 3- ??customer engagement representative section of terminal ileum 4- ??customer engagement representative section of ascending colon 5- ??ileocecal valve 6- ??two customer engagement representative sections of dilated cecum 7- ??radial margin 8- ??vascular peduncle, en face 9- ??appendix (proximal margin, customer engagement representative section, and bisected distal end) 10- ??transition from lesion to proximal ascending colon 11- ??transition from lesion to distal ascending colon 12-15- ??customer engagement representative sections of ulcerating lesion 16- ??customer engagement representative section with inked serosa 17- ??two probable lymph nodes 18- ??two probable lymph nodes 19- ??three probable lymph nodes 20- ??one probable lymph node, bisected 21- ??one probable lymph node, bisected 22- ??two probable lymph nodes 23- ??two probable lymph nodes Ivy Umesh 01/25/2017 2:18 PM End of Report [facility] 01/23/2017 21:4 6 EDT 01/24/2017 21:46 EDT us Cece Costa DO PATHOLOGY ORDERABLES Final Res ult [facility] [address] [place] [address] documented in this encounter Visit Diagnoses Not on filedocumented in this encounter Care Teams Hot Dip Galvanizer Relationship Specialty Start Date End Date Poly Copeland MD [address] [place] [address] [address] [place] [address] PCP - General 10/29/09 documented as of this encounter
--- OUTSIDE RECORDS SUMMARY | 2024-09-11 10:59 | XMS_ITS | Encounter Summary ---
Author Organization [facility] [place] [address] Care Team Providers Care Business Reporting Developer Name Role Phone Poly Copeland MD Primary Care Provider Encounter Details Date Type Department Care Team (Late st Contact Info) Description 07/01/2004 Orders Only Dermatology at [place] [address] [place] [phone] Braden Gerber MD [address], [place] [address] Social History Tobacco Use Types Packs/Day Years [...] Associated Diagnosis Comments SURGICAL PATHOLOGY REPORT Routine 07/01/2004 6:53 PM EDT documented in this encounter Results * Surgical Pathology Report (07/01/2004 6:53 PM EDT) Surgical Pathology Report [id number] ? Location: The signing pathologist has (i) examined the relevant preparation(s) for the specimen(s) and (ii) rendered or confirmed the diagnosis(es). . ?Pathology Surgical Pathology Final Report Clinical Information Specimen Submitted: A - (L) forehead, 4 mm punch Clinical History: 3 mm dark violaceous papule; hemangioma Gross Description Labeled/Fixativ e: ? Labeled with the patient's name, formalin. Qty/Size/Weight : ?Single punch, 0.4 cm, salamanca-white skin, excised to a ?depth of 0.2 cm. ??The skin surface displays an ?eccentric 0.3 x 0.2 cm ovoid, brown-black macule Sections/Proces sing: ??Inked. ??Bisected. (T1) ??arh/EJR Microscopic Description Slides reviewed, microscopic description not recorded. Diagnosis Left forehead, punch biopsy: ?Hemangioma with organizing thrombus. CR-0 07/03/04 [facility] 07/03/04 Verified by: ? Eduardo Cody MD ?Dermatopathol ogist ?(Electronic Signature) The attending pathologist whose signature appears on this report has reviewed all diagnostic slides and has edited the gross and/or microscopic portion of the report in rendering the final pathologic diagnosis. BARON NAVARRO 07/01/2004 6:53 PM EDT Braden Gerber MD PATHOLOGY/CYTOLOGY O RDERABLES BARON NAVARRO documented in this encounter Visit Diagnoses Not on filedocumented in this encounter Care Teams Business Reporting Developer Relationship Specialty Start Date End Date Poly Copeland MD [address] [place] [address] PCP - General 09/15/10 documented as of this encounter
--- OUTSIDE RECORDS SUMMARY | 2024-09-11 10:59 | XMS_ITS | Encounter Summary ---
Author Organization [facility] Address [facility] [place] [address] Care Team Providers Care Bus Transportation Manager Name Role Phone Poly Copeland MD Primary Care Provider [phone] Encounter Details Date Type Department Care Team (Late st Contact Info) Description 03/12/2009 Orders Only [place] [address] [facility] [place] [address] Social History Tobacco Use Types Packs/Day Years [...] Associated Diagnosis Comments SURGICAL PATHOLOGY REPORT Routine 03/12/2009 6:45 PM EDT documented in this encounter Results * Surgical Pathology Report (03/12/2009 6:45 PM EDT) Surgical Pathology Report [id number] ? Location: [facility] The signing pathologist has (i) examined the relevant preparation(s) for the specimen(s) and (ii) rendered or confirmed the diagnosis(es). . ?Pathology Surgical Pathology Final Report Clinical Information Specimen Submitted: A - Lt simple mastectomy; Lt Clinical History: Long stitch lateral, short stitch superior Clinical Diagnosis: Left breast cancer Gross Description Labeled/Fixative: ? Left simple mastectomy, left; fresh. Qty/Size/Weight: ?Single, 25.0 x 23.0 x 8.0 cm, 1930 g. Tissue Description: ?? Left simple mastectomy. ?? Skin: ?25.0 x 14.5-cm. ??A well-healed scar, 7.6 cm, is ?present on the left superior/lateral aspect of the skin, 1.0 cm inferior to the skin resection margin. ??The remaining skin is soft, salamanca, and unremarkable. ?? Nipple: ?1.3 x 1.2 cm in diameter, flat with no lesion ?identified grossly. ?? Deep Margin: ? Inked black. ??Superficial margin inked blue. ?? Lesion: ?A cavity is present in the lateral aspect of the ?specimen. ?Size: ? 11.0 x 7.0 x 5.0 cm. ?Color: ?The cavity is filled with dark serosanguineous fluid. ?Consistency: ?Wall of the cavity is fibrotic and congested. ?Borders: ?Well-circumscrib ed cavity. ?Location: ? In slices V-X. ?Relationship: ?? 2.0 cm to deep and 0.7 cm to superficial margins. ?? Additional Lesion: Not identified. ?? Parenchyma: ?White fibrous tissue is present medial to the cavity ?in slices IV-, measuring 5.0 x 4.5 x 3.5 cm. ??The ?remaining parenchyma shows soft, yellow adipose ?tissue. Sections/Processin g: ??The specimen is serially sectioned from medial to ?lateral into twelve slices, each averaging 2.0 cm in thickness. ??(1) nipple base cross sectioned; (2) nipple tip, bisected; (3) wall of cavity to superior superficial margin from slice IX; (4) cavity wall to skin from slice IX; (5) wall of cavity to superior superficial margin from slice IX; (6) fibrous tissue from slice ; (7) fibrous tissue from slice V; (8) fibrous tissue from slice IV; (9) deep margin from slice VIII; (10) fibrous tissue from slice XI, lateral to cavity; (11) the wall of cavity from slice VIII; (12) wall of cavity from slice . (R12) ??aje/HC Microscopic Description Slides reviewed, microscopic description not recorded. Diagnosis Specimen: ? Left simple mastectomy Specimen Size: ?25.0 x 23.0 x 8.0 cm. Residual malignancy: ?Absent (Present / Absent) Prior Bx's correlation: [id number] . Diagnosis Other findings: ? Fibrocystic disease with benign ductal hyperplasia, ? intraductal papillomata, apocrine cysts ?Inflammed granulation tissue, foreign body reaction ?Nipple ?? negative for malignancy CR-0 03/14/09 [facility] 03/14/09 Verified by: ? Nando MEDRANO, Zane Looney ?Pathologist ?(Electronic Signature) The attending pathologist whose signature appears on this report has reviewed all diagnostic slides and has edited the gross and/or microscopic portion of the report in rendering the final pathologic diagnosis. BARON NAVARRO 03/12/2009 6:45 PM EDT James Gonzalez MD PATHOLOGY/CYTOLOGY ORDERABLES Performing Organization Address City/State/[facility] Co md Phone Number BARON NAVARRO documented in this encounter Visit Diagnoses Not on filedocumented in this encounter Care Teams Bus Transportation Manager Relationship Specialty Start Date End Date Poly Copeland MD [address] [place] [address] PCP - General 09/15/10 documented as of this encounter
== END 2024-09-11 11:13 ==
LOC: DI 10:54
PROVIDERS: PCP Family Medicine; Visit Provider Nurse Practitioner Family
DX: R05.9 Cough, unspecified (principal)
CPT/HCPCS: 71046

== ENCOUNTER 2024-09-14 12:40 | Emergency (ER) | payer MEDICARE, SELFPAY ==
[2024-09-14] VITALS (19 sets, daily range): BP systolic 108–156; BP diastolic 32–91; PULSE 67–89; RESP 8–24; TEMP 36.3; O2SAT 93–100
--- NOTE | 2024-09-14 12:30 | RT.EKG_ITS ---
APPROVED REPORT Exam: Resting ECG Reason for Exam: SOB Patient Location: E HR:89 bpm ECG Measurements Heart Rate 89 AXIS GA 140 P 79 QRSd 99 QRS 50 QT 377 T 57 QTc 460 Conclusion Sinus rhythm...normal P axis, V-rate 60- 99
--- OUTSIDE RECORDS SUMMARY | 2024-09-14 12:45 | XMS_ITS | Encounter Summary ---
Author Organization [facility] Address [facility] [place] [address] Care Team Providers Care Button Breaker Name Role Phone Poly Copeland MD Primary Care Provider [phone] Encounter Details Date Type Department Care Team (Late st Contact Info) Description 07/11/2020 1:00 PM EDT Office Visit Hematology/Oncology at [address] [phone] Raffi Del Toro MD [facility] [place] [address] Isis Ortiz, CHEMICAL SUPERVISOR [address] [place] [address] DR HEMATOLOGY ONCOLOGY [place], [place] [id number] Leg edema, right; Malignant neoplasm of ascending [...] Her-2/odilon negative A. [place] breast [place] [place] IMPRESSION/recommendation: Right breast lesion 1 BI-RADS Category 0: Assessment incomplete. ??0.6 cm mass 10:00 position 11 cmfrom the nipple. Recommend second look ultrasound to determine if this will get up graded to category 4 and require biopsy [place] [facility] [place] - IMPRESSION: Highly suspicious 0.7 [...] and ??<= 200 cells): 0 ?Number of [place] Nodes Examined: ?2 Pathologic Stage Classification (pTNM, [...] B. 01/23/17 - Right hemicolectomy Path [place] [place] - CONSULTATION CASE Outside slide(s) labeled [id number], collection date 01/23/2017. Ascending colon, cecum, terminal [...] fracture. 10. Genetic testing 08/2018 - Result: [employer] Common Hereditary Cancers Panel showed no mutation was detected. ??This means that Kelly does not carry a mutation in the genes detectable by this test. ??The following genes were evaluated for sequence changes and exonic deletions/duplications: APC, PALLAVI, AXIN2, BARD1, BMPR1A, BRCA1, BRCA2, BRIP1, CDH1, CDK4, CDKN2A (p14ARF), CDKN2A ([id number]), CHEK2, CTNNA1, DICER1, EPCAM (EPCAM: Deletion/duplication testing only (NM_[id number]), GREM1 (GREM1: Promoter region deletion/duplication testing only.), KIT, MEN1, MLH1, MSH2, MSH3, MSH6, MUTYH, NBN, NF1, PALB2, PDGFRA, PMS2, POLD1, POLE, PTEN, RAD50, RAD51C, RAD51D, SDHB, SDHC, SDHD, SMAD4, SMARCA4, STK11, TP53, TSC1, TSC2, VHL. ??The following genes were evaluated for sequence changes only: HOXB13 (c.251G>A, p.Izc80Nmv variant only), NTHL1 (NTHL1: Deletion/duplication analysis is [...] pain. Soc Hx: , lives alone in [place], [place] Tob - Quit 17 years ago Etoh - None Works [employer] Fam Hx: Father - at age 81, [...] grade, ER/ND strongly positive, Her- 2/odilon negative: Shehad a right breast mammogram (s/p prior left mastectomy for DCIS) done in early 02/08 which showed a0.6 cm mass at 10:00 in the right breast. Biopsy showed invasive ductal carcinoma with lobular features, int grade, ER/ND positive and Her-2/odilon negative. ??On 03/17/18 she [...] lung documented in this encounter Care Teams Button Breaker Relationship Specialty Start Date End Date Poly Copeland MD [address] [place] [address] [address] [place] [address] PCP - General 09/15/10 documented as of this encounter
--- OUTSIDE RECORDS SUMMARY | 2024-09-14 12:45 | XMS_ITS | Encounter Summary ---
Author Organization [facility] Address [facility] [place] [address] Care Team Providers Care Power House Control Room Operator Name Role Phone Poly Copeland MD Primary Care Provider [phone] Encounter Details Date Type Department Care Team (Late st Contact Info) Description 07/02/2022 10:00 AM EDT Office Visit Hematology/Oncology at [address] [phone] Raffi Del Toro MD [facility] [place] [address] Malignant neoplasm of ascending colon; Breast cancer, [...] the right breast, pT1b, N0, Int grade, ER/WA +, Her-2/odilon negative A. Right breast mammogram 01/25/18 ([facility] [place]) - IMPRESSION/recommendation: Right breast lesion 1 BI-RADS Category 0: Assessment incomplete. ??0.6 cm mass 10:00 position 11 cmfrom the nipple. Recommend second look ultrasound to determine if this will get up graded to category 4 and require biopsy Mammogram at [facility] [place] 01/30/18 - IMPRESSION: Highly suspicious 0.7 cm [...] cancer cells with immunostaining) Stain intensity: Strong WA immunoreactivity: Positive ( ??>90% cancer cells with [...] and ??<= 200 cells): 0 ?Number of [place] Nodes Examined: ?2 Pathologic Stage Classification (pTNM, [...] 01/23/17 - Right hemicolectomy Path ([facility] [place] review) - CONSULTATION CASE Outside slide(s) labeled [id number], collection date 01/23/2017. Ascending colon, cecum, terminal [...] fracture. 10. Genetic testing 08/2018 - Result: [facility] Common Hereditary Cancers Panel showed no mutation was detected. ??This means that Kelly does not carry a mutation in the genes detectable by this test. ??The following genes were evaluated for sequence changes and exonic deletions/duplications: APC, PALLAVI, AXIN2, BARD1, BMPR1A, BRCA1, BRCA2, BRIP1, CDH1, CDK4, CDKN2A (p14ARF), CDKN2A ([id number]), CHEK2, CTNNA1, DICER1, EPCAM (EPCAM: Deletion/duplication testing only (NM_[id number]), GREM1 (GREM1: Promoter region deletion/duplication testing only.), KIT, MEN1, MLH1, MSH2, MSH3, MSH6, MUTYH, NBN, NF1, PALB2, PDGFRA, PMS2, POLD1, POLE, PTEN, RAD50, RAD51C, RAD51D, SDHB, SDHC, SDHD, SMAD4, SMARCA4, STK11, TP53, TSC1, TSC2, VHL. ??The following genes were evaluated for sequence changes only: HOXB13 (c.251G>A, p.Akw88Moj variant only), NTHL1 (NTHL1: Deletion/duplication analysis is [...] better. 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 Bx - invasive ductal carcinoma with lobular features, int grade, ER/WA positive, Her-2/odilon negative. ?? 03/17/18 - simple [...] right documented in this encounter Care Teams Power House Control Room Operator Relationship Specialty Start Date End Date Poly Copeland MD [address] [facility] [address] [place] [address] PCP - General 09/15/10 documented as of this encounter
--- OUTSIDE RECORDS SUMMARY | 2024-09-14 12:45 | XMS_ITS | Encounter Summary ---
Author Organization [facility] Address [facility] [place] [address] Care Team Providers Care Touch Up Painter Name Role Phone Poly Copeland MD Primary Care Provider Encounter Details Date Type Department Care Team (Late st Contact Info) Description 10/31/2020 1:00 PM EST Office Visit Hematology/Oncology at [address] [phone] Raffi Del Toro MD [facility] [place] [address] Isis Ortiz, HEALTHCARE NETWORK CONSULTANT [address] [place] [address] DR HEMATOLOGY ONCOLOGY [place], [place] [id number] Breast cancer, stage 1, right; Malignant neoplasm [...] the right breast, pT1b, N0, Int grade, ER/IL +, Her-2/odilon negative A. Right breast mammogram 01/25/18 ([facility] review) - IMPRESSION/recommendation: Right breast lesion 1 BI-RADS Category 0: Assessment incomplete. ??0.6 cm mass 10:00 position 11 cmfrom the nipple. Recommend second look ultrasound to determine if this will get up graded to category 4 and require biopsy Mammogram at [facility] 01/30/18 - IMPRESSION: Highly suspicious 0.7 cm [...] cancer cells with immunostaining) Stain intensity: Strong [place] immunoreactivity: Positive ( ??>90% cancer cells with [...] and ??<= 200 cells): 0 ?Number of [place] Nodes Examined: ?2 Pathologic Stage Classification (pTNM, [...] process. B. 01/23/17 - Right hemicolectomy Path ([facility] review) - CONSULTATION CASE Outside slide(s) labeled [id number], collection date 01/23/2017. Ascending colon, cecum, terminal [...] fracture. 10. Genetic testing 08/2018 - Result: [employer]'s Common Hereditary Cancers Panel showed no mutation was detected. ??This means that Kelly does not carry a mutation in the genes detectable by this test. ??The following genes were evaluated for sequence changes and exonic deletions/duplications: APC, PALLAVI, AXIN2, BARD1, BMPR1A, BRCA1, BRCA2, BRIP1, CDH1, CDK4, CDKN2A (p14ARF), CDKN2A ([id number]), CHEK2, CTNNA1, DICER1, EPCAM (EPCAM: Deletion/duplication testing only (NM_002354.2), GREM1 (GREM1: Promoter region deletion/duplication testing only.), KIT, MEN1, MLH1, MSH2, MSH3, MSH6, MUTYH, NBN, NF1, PALB2, PDGFRA, PMS2, POLD1, POLE, PTEN, RAD50, RAD51C, RAD51D, SDHB, SDHC, SDHD, SMAD4, SMARCA4, STK11, TP53, TSC1, TSC2, VHL. ??The following genes were evaluated for sequence changes only: HOXB13 (c.251G>A, p.Hjd33Xfs variant only), NTHL1 (NTHL1: Deletion/duplication analysis is [...] knitting. Soc Hx: , lives alone in [place], [place] Tob - Quit 17 years ago Etoh - None Works [employer] Fam Hx: Father - at age 81, [...] potassium is low. She heard from Dr. Copealnd and has doubled her potassium dose. documented in this encounter Plan of Treatment Not on file documented as of this encounter Visit Diagnoses Diagnosis Breast cancer, stage 1, right Malignant neoplasm of ascending colon documented in this encounter Care Teams Touch Up Painter Relationship Specialty Start Date End Date Poly Copeland MD [address] [place] [address] PCP - General 09/15/10 documented as of this encounter
--- OUTSIDE RECORDS SUMMARY | 2024-09-14 12:45 | XMS_ITS | Encounter Summary ---
Author Organization [facility] [place] [address] Care Team Providers Care Email Administrator Name Role Phone Poly Copeland MD Primary Care Provider [phone] Encounter Details Date Type Department Care Team (Late st Contact Info) Description 05/02/2020 Orders Only Hematology/Oncology at [address] [phone] Raffi Del Toro MD [facility] [place] [address] Malignant neoplasm of right breast in female, [...] breast documented in this encounter Care Teams Email Administrator Relationship Specialty Start Date End Date Poly Copeland MD [address] [place], [place] [address] PCP - General 09/15/10 documented as of this encounter
--- OUTSIDE RECORDS SUMMARY | 2024-09-14 12:45 | XMS_ITS | Encounter Summary ---
Author Organization [facility] [place] [address] Care Team Providers Care Salsa Dance Instructor Name Role Phone Poly Copeland MD Primary Care Provider [phone] Encounter Details Date Type Department Care Team (Late st Contact Info) Description 02/08/2019 1:30 PM EDT Office Visit Hematology/Oncology at [address] [phone] Mary Duque, EXCHANGE ARCHITECT [address] [facility] [place] [address] Malignant neoplasm of right breast in female, [...] this encounter Progress Notes * Mary Duque, EXCHANGE ARCHITECT - 02/08/2019 1:30 PM EDT Subjective: Patient ID: Kelly Strickland is a 78 y.o. female. Problem List: 1. Cancer of the right breast, pT1b, N0, Int grade, ER/NE +, Her-2/odilon negative A. Right breast mammogram [place]25/18 [place] [place] - IMPRESSION/recommendation: Right breast lesion 1 BI-RADS Category 0: Assessment incomplete. ??0.6 cm mass 10:00 position 11 cmfrom the nipple. Recommend second look ultrasound to determine if this will get up graded to category 4 and require biopsy [place]ogram [place] [facility] [place]/18 - IMPRESSION: Highly suspicious 0.7 cm [...] and ??<= 200 cells): 0 ?Number of [place] Nodes Examined: ?2 Pathologic Stage Classification (pTNM, [...] 01/23/17 - Right hemicolectomy Path ([facility] [place]) - CONSULTATION CASE Outside slide(s) labeled [id number], collection date 01/23/2017. Ascending colon, cecum, terminal [...] BRCA2, BRIP1, CDH1, CDK4, CDKN2A (p14ARF), CDKN2A ([id number]), CHEK2, CTNNA1, DICER1, EPCAM (EPCAM: Deletion/duplication testing only (NM_[id number]), GREM1 (GREM1: Promoter region deletion/duplication testing only.), KIT, MEN1, MLH1, MSH2, MSH3, MSH6, MUTYH, NBN, NF1, PALB2, PDGFRA, PMS2, POLD1, POLE, PTEN, RAD50, RAD51C, RAD51D, SDHB, SDHC, SDHD, SMAD4, SMARCA4, STK11, TP53, TSC1, TSC2, VHL. ??The following genes were evaluated for sequence changes only: HOXB13 (c.251G>A, p.Aql27War variant only), NTHL1 (NTHL1: Deletion/duplication analysis is [...] letrozole. Soc Hx: , lives alone in [place], [place] Tob - Quit 17 years ago Etoh - None Works [employer] Fam Hx: Father - at age 81, [...] colon documented in this encounter Care Teams Salsa Dance Instructor Relationship Specialty Start Date End Date Poly Copeland MD [address] [facility] 1 [place] [address] PCP - General 09/15/10 documented as of this encounter
--- OUTSIDE RECORDS SUMMARY | 2024-09-14 12:45 | XMS_ITS | Encounter Summary ---
Author Organization [facility] [place] [address] Care Team Providers Care Demo Event Specialist Name Role Phone Poly Copeland MD Primary Care Provider [phone] Encounter Details Date Type Department Care Team (Late st Contact Info) Description 06/10/2022 Orders Only [place] [phone] Raffi Del Toro MD [facility] [place] [address] Malignant neoplasm of ascending colon Social History [...] colon documented in this encounter Care Teams Demo Event Specialist Relationship Specialty Start Date End Date Poly Copeland MD [address] [place], [place] [address] PCP - General 09/15/10 documented as of this encounter
--- OUTSIDE RECORDS SUMMARY | 2024-09-14 12:45 | XMS_ITS | Encounter Summary ---
Author Organization [facility] [place] [address] Care Team Providers Care Digester Operator Helper Name Role Phone Poly Copeland MD Primary Care Provider [phone] Encounter Details Date Type Department Care Team (Late st Contact Info) Description 06/25/2022 Ancillary Procedure Radiology Library at [facility] [place] [phone] Raffi Del Toro MD [facility] [place] [address] Social History Tobacco Use Types Packs/Day Years [...] Pelvis (06/25/2022 12:00 AM EDT) Narrative CITLALLI ZEPEDA - 06/28/2022 1:32 PM EDT This exam is auto-finalizing. It's purpose is for storage only. Raffi Del Toro MD IMG FILM LIBRARY ORD ERABLES [place] documented in this encounter Visit Diagnoses Not on filedocumented in this encounter Care Teams Digester Operator Helper Relationship Specialty Start Date End Date Poly Copeland MD [address] [place] [address] [address] [facility] 1 [place] [address] PCP - General 09/15/10 documented as of this encounter
--- OUTSIDE RECORDS SUMMARY | 2024-09-14 12:45 | XMS_ITS | Encounter Summary ---
Author Organization [facility] [place] [address] Care Team Providers Care Land Surveying Manager Name Role Phone Poly Copeland MD Primary Care Provider [phone] Encounter Details Date Type Department Care Team (Latest Contact Info) Description 01/25/2020 2:30 PM EDT TH Visit (TeleHealth) Hematology/Oncology at [address] [phone] Raffi Del Toro MD [facility] [address] Roxana Salinas RN Breast cancer, stage 1, [...] Her-2/odilon negative A. Right breast mammogram 01/25/18 ([facility] review) - IMPRESSION/recommendation: Right breast lesion 1 BI-RADS Category 0: Assessment incomplete. ??0.6 cm mass 10:00 position 11 cmfrom the nipple. Recommend second look ultrasound to determine if this will get up graded to category 4 and require biopsy Mammogram at [facility] 01/30/18 - IMPRESSION: Highly suspicious 0.7 cm [...] Type: ?? Invasive ductal carcinoma ?Histologic Grade ([place] Histologic Score) ? Glandular (Acinar) / Tubular [...] and ??<= 200 cells): 0 ?Number of [place] Nodes Examined: ?2 Pathologic Stage Classification (pTNM, [...] review) - CONSULTATION CASE Outside slide(s) labeled [id number], collection date 01/23/2017. Ascending colon, cecum, terminal [...] fracture. 10. Genetic testing 08/2018 - Result: [employer]s Common Hereditary Cancers Panel showed no mutation was detected. ??This means that Kelly does not carry a mutation in the genes detectable by this test. ??The following genes were evaluated for sequence changes and exonic deletions/duplications: APC, PALLAVI, AXIN2, BARD1, BMPR1A, BRCA1, BRCA2, BRIP1, CDH1, CDK4, CDKN2A (p14ARF), CDKN2A (d35NYP0u), CHEK2, CTNNA1, DICER1, EPCAM (EPCAM: Deletion/duplication testing only (NM_002354.2), GREM1 (GREM1: Promoter region deletion/duplication testing only.), KIT, MEN1, MLH1, MSH2, MSH3, MSH6, MUTYH, NBN, NF1, PALB2, PDGFRA, PMS2, POLD1, POLE, PTEN, RAD50, RAD51C, RAD51D, SDHB, SDHC, SDHD, SMAD4, SMARCA4, STK11, TP53, TSC1, TSC2, VHL. ??The following genes were evaluated for sequence changes only: HOXB13 (c.251G>A, p.Xft21Ilt variant only), NTHL1 (NTHL1: Deletion/duplication analysis is [...] disease. Soc Hx: , lives alone in [place], [place] Tob - Quit 17 years ago Etoh - None Works [employer] Fam Hx: Father - at age 81, [...] grade, ER/[place] strongly positive, Her- 2/odilon negative: Shehad a right breast mammogram (s/p prior left mastectomy for DCIS) done in early 02/08 which showed a0.6 cm mass at 10:00 in the right breast. 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 ??On 03/17/18 she [...] colon documented in this encounter Care Teams Land Surveying Manager Relationship Specialty Start Date End Date Poly Copeland MD [address] [place] [address] PCP - General 09/15/10 documented as of this encounter
--- OUTSIDE RECORDS SUMMARY | 2024-09-14 12:45 | XMS_ITS | Encounter Summary ---
Author Organization [facility] [place] [address] Care Team Providers Care Carpenter Ship Name Role Phone Poly Copeland MD Primary Care Provider [phone] Encounter Details Date Type Department Care Team (Late st Contact Info) Description 11/23/2021 10:30 AM EST Office Visit Hematology/Oncology at [address] [phone] Isis Ortiz CALENDER WIND UP TENDER [address] [place] [address] DR HEMATOLOGY ONCOLOGY [place], [place] [id number] Breast cancer, stage 1, right; Malignant neoplasm [...] this encounter Progress Notes * Isis Ortiz, CALENDER WIND UP TENDER - 11/23/2021 10:30 AM EST Subjective Patient [...] the right breast, T1b, N0, int grade, ER/MN strongly positive, Her- 2/odilon negative: Right breast mammogram (s/p prior left mastectomy for DCIS) done in early 02/08 - 0.6 cm mass at 10:00 in the right breast. Bx - invasive ductal carcinoma with lobular features, int grade, ER/MN positive, Her-2/odilon negative. ?? 03/17/18 - simple [...] the right breast in 2018, IDC, -LNs, ER/MN+, Her-2 odilon neg. . 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 Kelly returns to the [facility] oncology clinic in [facility] today for routine follow-upof colon cancer and breast cancer. Ashley is feeling well today. 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 She [...] the right breast in 2018, IDC, -LNs, ER/MN+, Her-2 odilon neg. . 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 Kelly returns to the [facility] oncology clinic in [facility] today for routine follow-upof colon cancer and [...] colon documented in this encounter Care Teams Carpenter Ship Relationship Specialty Start Date End Date Poly Copeland MD [address] [place] [address] PCP - General 09/15/10 documented as of this encounter
--- OUTSIDE RECORDS SUMMARY | 2024-09-14 12:45 | XMS_ITS ---
Author Organization [facility] Address [facility] [place] [address] Care Team Providers Care Dental Aide Name Role Phone Poly Copeland MD Primary Care Provider [phone] Active Problems Problem Noted Date Diagnosed Date [...] treatments are documented for this patient in [facility]. Treatments may have been administered in another system.
--- OUTSIDE RECORDS SUMMARY | 2024-09-14 12:45 | XMS_ITS | Encounter Summary ---
Author Organization [facility] Address [facility] [place] [address] Care Team Providers Care Workers Compensation Coordinator Name Role Phone Poly Copeland MD Primary Care Provider [phone] Reason for Referral * Consultation (Routine) - Specialty Diagnoses / Procedures Referred By Contac t Referred To Contact Diagnoses Malignant neoplasm of ascending colon BRBPR (bright red blood per rectum) Raffi Del Toro MD [facility] [place] [address] Morro Alves MD [address] [place] [address] Referral ID Status Reason Start Date Expiration Date Visits Requested Visits Authorized [id number] Specialty Service Requested 05/18/2019 11/14/2019 1 1 Encounter Details Date Type Department Care Team (Late st Contact Info) Description 05/18/2019 1:00 PM EDT Office Visit Hematology/Oncology at [address] [phone] Raffi Del Toro MD [facility] [place] [address] Breast cancer, stage 1, right; [...] the right breast, pT1b, N0, Int grade, ER/AK +, Her-2/odilon negative A. Right breast mammogram [...] cancer cells with immunostaining) Stain intensity: Strong [place] immunoreactivity: Positive ( ??>90% cancer cells with [...] and ??<= 200 cells): 0 ?Number of [place] Nodes Examined: ?2 Pathologic Stage Classification (pTNM, [...] review) - CONSULTATION CASE Outside slide(s) labeled [id number], collection date 01/23/2017. Ascending colon, cecum, terminal [...] fracture. 10. Genetic testing 08/2018 - Result: [employer] Common Hereditary Cancers Panel showed no mutation was detected. ??This means that Kelly does not carry a mutation in the genes detectable by this test. ??The following genes were evaluated for sequence changes and exonic deletions/duplications: APC, PALLAVI, AXIN2, BARD1, BMPR1A, BRCA1, BRCA2, BRIP1, CDH1, CDK4, CDKN2A (p14ARF), CDKN2A (l67GLF5c), CHEK2, CTNNA1, DICER1, EPCAM (EPCAM: Deletion/duplication testing only (NM_[id number]), GREM1 (GREM1: Promoter region deletion/duplication testing only.), KIT, MEN1, MLH1, MSH2, MSH3, MSH6, MUTYH, NBN, NF1, PALB2, PDGFRA, PMS2, POLD1, POLE, PTEN, RAD50, RAD51C, RAD51D, SDHB, SDHC, SDHD, SMAD4, SMARCA4, STK11, TP53, TSC1, TSC2, VHL. ??The following genes were evaluated for sequence changes only: HOXB13 (c.251G>A, p.Mnp16Pyv variant only), NTHL1 (NTHL1: Deletion/duplication analysis is [...] before. Soc Hx: , lives alone in [place], [place] Tob - Quit 17 years ago Etoh - None Works [employer] Fam Hx: Father - at age 81, [...] the right breast, T1b, N0, int grade, ER/AK strongly positive, Her- 2/odilon negative: Shehad a right breast mammogram (s/p prior left mastectomy for DCIS) done in early 02/08 which showed a0.6 cm mass at 10:00 in the right breast. Biopsy showed invasive ductal carcinoma wth lobular features, int grade, ER/AK positive and Her-2/odilon negative. ??On 03/17/18 she [...] anus documented in this encounter Care Teams Workers Compensation Coordinator Relationship Specialty Start Date End Date Poly Copeland MD [address] [facility] 1 [place] [address] PCP - General 09/15/10 documented as of this encounter
--- OUTSIDE RECORDS SUMMARY | 2024-09-14 12:45 | XMS_ITS | Encounter Summary ---
Author Organization [facility] Address [facility] [place] [address] Care Team Providers Care Headhunter Name Role Phone Poly Copeland MD Primary Care Provider Encounter Details Date Type Department Care Team (Late st Contact Info) Description 11/16/2019 1:30 PM EST Office Visit Hematology/Oncology at [address] [phone] Raffi Del Toro MD [facility] [place] [address] Roxana Salinas RN Breast cancer, stage 1, [...] the right breast, pT1b, N0, Int grade, ER/MT +, Her-2/odilon negative A. Right breast mammogram 01/25/18 ([facility] review) - IMPRESSION/recommendation: Right breast lesion 1 BI-RADS Category 0: Assessment incomplete. ??0.6 cm mass 10:00 position 11 cmfrom the nipple. Recommend second look ultrasound to determine if this will get up graded to category 4 and require biopsy Mammogram at [facility] 01/30/18 - IMPRESSION: Highly [...] cancer cells with immunostaining) Stain intensity: Strong [place] immunoreactivity: Positive ( ??>90% cancer cells with [...] Type: ?? Invasive ductal carcinoma ?Histologic Grade ([place] Histologic Score) ? Glandular (Acinar) / Tubular [...] and ??<= 200 cells): 0 ?Number of [place] Nodes Examined: ?2 Pathologic Stage Classification (pTNM, [...] B. 01/23/17 - Right hemicolectomy Path ([facility] review) - CONSULTATION CASE Outside slide(s) labeled [id number], collection date 01/23/2017. Ascending colon, cecum, terminal [...] BRCA2, BRIP1, CDH1, CDK4, CDKN2A (p14ARF), CDKN2A (v49LBL7h), CHEK2, CTNNA1, DICER1, EPCAM (EPCAM: Deletion/duplication testing only (NM_[id number]), GREM1 (GREM1: Promoter region deletion/duplication testing only.), KIT, MEN1, MLH1, MSH2, MSH3, MSH6, MUTYH, NBN, NF1, PALB2, PDGFRA, PMS2, POLD1, POLE, PTEN, RAD50, RAD51C, RAD51D, SDHB, SDHC, SDHD, SMAD4, SMARCA4, STK11, TP53, TSC1, TSC2, VHL. ??The following genes were evaluated for sequence changes only: HOXB13 (c.251G>A, p.Qja10Yyu variant only), NTHL1 (NTHL1: Deletion/duplication analysis is [...] arthralgias. Soc Hx: , lives alone in [place], [place] Tob - Quit 17 years ago Etoh - None Works [employer] Fam Hx: Father - at age 81, [...] the right breast, T1b, N0, int grade, ER/MT strongly positive, Her- 2/odilon negative: Shehad a right breast mammogram (s/p prior left mastectomy for DCIS) done in early 02/08 which showed a0.6 cm mass at 10:00 in the right breast. 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 ??On 03/17/18 she [...] type documented in this encounter Care Teams Headhunter Relationship Specialty Start Date End Date Poly Copeland MD [address] [place] [address] PCP - General 09/15/10 documented as of this encounter
--- OUTSIDE RECORDS SUMMARY | 2024-09-14 12:45 | XMS_ITS | Encounter Summary ---
Author Organization [facility] [place] [address] Care Team Providers Care Gas Pumping Station Supervisor Name Role Phone Poly Copeland MD Primary Care Provider [phone] Encounter Details Date Type Department Care Team (Late st Contact Info) Description 01/24/2020 Telephone Hematology/Oncology at [address] [phone] Chip Rosas Social History Tobacco [...] filedocumented in this encounter Care Teams Gas Pumping Station Supervisor Relationship Specialty Start Date End Date Poly Copeland MD [address] [place] [address] [address] [place], [place] [address] PCP - General 09/15/10 documented as of this encounter
--- OUTSIDE RECORDS SUMMARY | 2024-09-14 12:45 | XMS_ITS | Encounter Summary ---
Author Organization [facility] [address] Care Team Providers Care Computer Video Game Designer Name Role Phone Poly Copeland MD Primary Care Provider [phone] Encounter Details Date Type Department Care Team (Late st Contact Info) Description 06/25/2020 10:00 PM EDT Ancillary Procedure Radiology Library at [facility] [place] [phone] Raffi Del Toro MD [facility] [place] [address] Social History Tobacco Use Types Packs/Day Years [...] Toro MD IMG FILM LIBRARY ORD ERABLES [facility] [place], [place] documented in this encounter Visit Diagnoses Not on filedocumented in this encounter Care Teams Computer Video Game Designer Relationship Specialty Start Date End Date Poly Copeland MD [address] [place], [place] [address]Y [facility] 1 [place] [address] PCP - General 09/15/10 documented as of this encounter
--- OUTSIDE RECORDS SUMMARY | 2024-09-14 12:45 | XMS_ITS | Encounter Summary ---
Author Organization [facility] [place] [address] Care Team Providers Care Ball Assembler Name Role Phone Poly Copeland MD Primary Care Provider [phone] Encounter Details Date Type Department Care Team (Latest Contact Info) Description 11/10/2018 12:00 PM EST Clinical Support Hematology/Oncology at [address] [phone] [facility] [place] [address] Ductal carcinoma in situ (DCIS) of left [...] Tan RD - 11/10/2018 12:00 PM EST [facility] Dietitian Follow Up Assessment Seen By: Deisi Tan MS, RD, J2EE ANDROID DEVELOPER, LD Referred by: Mary Duque APRN Reason [...] breast documented in this encounter Care Teams Ball Assembler Relationship Specialty Start Date End Date Poly Copeland MD [address] [place] [address] 1 [place] [address] PCP - General 09/15/10 documented as of this encounter
--- OUTSIDE RECORDS SUMMARY | 2024-09-14 12:45 | XMS_ITS | Encounter Summary ---
Author Organization [facility] [place] [address] Care Team Providers Care Spray Painting Machine Operator Name Role Phone Poly Copeland MD Primary Care Provider [phone] Encounter Details Date Type Department Care Team (Late st Contact Info) Description 05/08/2020 Telephone [place] [phone] [facility] Social History Tobacco Use Types [...] on filedocumented in this encounter Care Teams Spray Painting Machine Operator Relationship Specialty Start Date End Date Poly Copeland MD [address] [place], [place] [address] PCP - General 09/15/10 documented as of this encounter
--- OUTSIDE RECORDS SUMMARY | 2024-09-14 12:45 | XMS_ITS | Encounter Summary ---
Author Organization [facility] Address [facility] [place] [address] Care Team Providers Care Cardiac Tech Name Role Phone Poly Copeland MD Primary Care Provider [phone] Reason for Referral * Consultation (Routine) - Specialty Diagnoses / Procedures Referred By Contgail t Referred To Contact Diagnoses Malignant neoplasm of ascending colon Raffi Del Toro MD [facility] [place] [address] Morro Alves MD [address] [place] [address] Referral ID Status Reason Start Date Expiration Date V isits Requested Visits Authorized [id number] Consult, Test & Treat 05/15/2021 11/11/2021 1 1 Encounter Details Date Type Department Care Team (Late st Contact Info) Description 05/15/2021 1:00 PM EDT Office Visit Hematology/Oncology at [address] [phone] Raffi Del Toro MD [facility] [place] [address] Isis Ortiz APRN [address] [place] [address] DR HEMATOLOGY ONCOLOGY [place], [place] [id number] Malignant neoplasm of ascending colon; Breast cancer, [...] negative A. Right breast mammogram 01/25/18 ([facility] [place]) - IMPRESSION/recommendation: Right breast lesion 1 BI-RADS Category 0: Assessment incomplete. ??0.6 cm mass 10:00 position 11 cmfrom the nipple. Recommend second look ultrasound to determine if this will get up graded to category 4 and require biopsy Mammogram at [facility] [place]/30/18 - IMPRESSION: Highly suspicious 0.7 cm [...] Type: ?? Invasive ductal carcinoma ?Histologic Grade ([place] Histologic Score) ? Glandular (Acinar) / Tubular [...] and ??<= 200 cells): 0 ?Number of Kennard Nodes Examined: ?2 Pathologic Stage Classification (pTNM, [...] B. 01/23/17 - Right hemicolectomy Path ([facility] review) - CONSULTATION CASE Outside slide(s) labeled [id number], collection date 01/23/2017. Ascending colon, cecum, terminal [...] fracture. 10. Genetic testing 08/2018 - Result: [facility] Common Hereditary Cancers Panel showed no mutation was detected. ??This means that Kelly does not carry a mutation in the genes detectable by this test. ??The following genes were evaluated for sequence changes and exonic deletions/duplications: APC, PALLAVI, AXIN2, BARD1, BMPR1A, BRCA1, BRCA2, BRIP1, CDH1, CDK4, CDKN2A (p14ARF), CDKN2A (b90NRK0s), CHEK2, CTNNA1, DICER1, EPCAM (EPCAM: Deletion/duplication testing only ([id number]), GREM1 (GREM1: Promoter region deletion/duplication testing only.), KIT, MEN1, MLH1, MSH2, MSH3, MSH6, MUTYH, NBN, NF1, PALB2, PDGFRA, PMS2, POLD1, POLE, PTEN, RAD50, RAD51C, RAD51D, SDHB, SDHC, SDHD, SMAD4, SMARCA4, STK11, TP53, TSC1, TSC2, VHL. ??The following genes were evaluated for sequence changes only: HOXB13 (c.251G>A, p.Vth73Bxv variant only), NTHL1 (NTHL1: Deletion/duplication analysis is [...] knitting. 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
--- OUTSIDE RECORDS SUMMARY | 2024-09-14 12:45 | XMS_ITS | Encounter Summary ---
Author Organization [facility] [place] [address] Care Team Providers Care Charge Entry Specialist Name Role Phone Poly Copeland MD Primary Care Provider [phone] Encounter Details Date Type Department Care Team (Late st Contact Info) Description 05/14/2019 Ancillary Procedure Radiology Library at [facility] DAV[place] [phone] Raffi Del Toro MD [facility] [place] [address] Social History Tobacco Use Types Packs/Day Years [...] Abdomen Pelvis (05/14/2019 12:00 AM EDT) Narrative [facility] ZEPED[facility] - 06/25/2020 10:02 PM EDT This exam is auto-finalizing. It's purpose is for storage only. Raffi Del Toro MD IMG FILM LIBRARY ORD ERABLES [facility] [place] documented in this encounter Visit Diagnoses Not on filedocumented in this encounter Care Teams Charge Entry Specialist Relationship Specialty Start Date End Date Poly Copeland MD [address] [place], [place] [address]Y [facility] [address] [place] [address] PCP - General 09/15/10 documented as of this encounter
--- OUTSIDE RECORDS SUMMARY | 2024-09-14 12:45 | XMS_ITS | Encounter Summary ---
Author [place] [address] Care Team Providers Care Autographer Name Role Phone Poly Copeland MD Primary Care Provider Reason for Referral * Diagnostic Test (Routine) - Closed Specialty Diagnoses / Procedures Referred By Contac t Referred To Contact Cardiology Diagnoses Ascending aorta dilation Hypertension, unspecified type Procedures Mobile Echo Poly Copeland MD [address] [place] [address] [facility] [place] [address] Referral ID Status Reason Start Date Expiration Date V isits Requested Visits Authorized [id number] Closed Specialty Service Requested 10/13/2023 10/12/2024 1 1 Reason for Visit * Diagnostic Test (Routine) - Closed Specialty Diagnoses / Procedures Referred By Contac t Referred To Contact Cardiology Diagnoses Ascending aorta dilation Hypertension, unspecified type Procedures Mobile Echo Poly Copeland MD [address] [place] [address] [facility] [place] [address] Referral ID Status Reason Start Date Expiration Date V isits Requested Visits Authorized [id number] Closed Specialty Service Requested 10/13/2023 10/12/2024 1 1 Encounter Details Date Type Department Care Team (Late st Contact Info) Description 10/13/2023 1:22 PM EST - 10/13/2023 11:59 PM EST Hospital Encounter [place] [address] Poly Copeland MD [address] [place] [address] Ascending aorta dilation; Hypertension, unspecified type Discharge [...] EST Narrative 10/13/2023 4:28 PM EST 1 [place] [address] ? Echocardiogram Report Name: KELLY QUIÑONES ? Study Date: 10/13/2023 07:40 AMBP: 150/90 mmHg ? Patient Location: : 1940 ? Height: 160 cm ? Account: [id number] Age: 83 yrs ? Weight: 98 kg Gender: Female ?BSA: 2.0 m2 Ordering Physician: POLY COPELAND Referring Physician: POLY COPELAND Performed By: Shante Orellana RDCS Reason For Study: Ascending aorta dilation, Hypertension, unspecified type Exam Location: [facility]. Interpretation Summary Left ventricle is of [...] prior studies available for direct comparison. Procedure Complete-[id number]. Suboptimal quality. This study is limited because [...] Note Marc Tan MD - 10/13/2023 1 [place] [address] Echocardiogram Report Name: KELLY QUIÑONES Study Date:10/13/2023 07:40 AMBP: 150/90 mmHg Patient Location: : 1940 Height: 160 cm Account: [id number] Age: 83 yrs Weight: 98 kg Gender: Female BSA: 2.0 m2 Ordering Physician: POLY COPELAND Referring Physician: POLY COPELAND Performed By: Shante Orellana RDCS Reason For Study: Ascending aorta dilation, Hypertension, unspecifiedtype Exam Location: [facility]. Interpretation Summary Left ventricle is of [...] prior studies available for direct comparison. Procedure Complete-[id number]. Suboptimal quality. This study is limited because [...] type documented in this encounter Care Teams Autographer Relationship Specialty Start Date End Date Poly Copeland MD [address] [place] [address] [address] [place] [address] PCP - General 09/15/10 documented as of this encounter
--- OUTSIDE RECORDS SUMMARY | 2024-09-14 12:45 | XMS_ITS | Encounter Summary ---
Author Organization [facility] [place] [address] Care Team Providers Care Medieval English Literature Professor Name Role Phone Poly Copeland MD Primary Care Provider Encounter Details Date Type Department Care Team (Late st Contact Info) Description 05/11/2021 1:40 PM EDT Ancillary Procedure Radiology Library [place] [phone] Poly Copeland MD [facility] [address] [facility] 1 [place], [place] [address] Social History Tobacco Use Types Packs/Day Years [...] Abdomen Pelvis (05/11/2021 1:38 PM EDT) Narrative [facility] - 05/11/2021 1:38 PM EDT This exam is auto-finalizing. It's purpose is for storage only. Poly Copeland MD [facility] FILM LIBRARY ORD ERABLES [facility] [employer], [place] documented in this encounter Visit Diagnoses Not on filedocumented in this encounter Care Teams Medieval English Literature Professor Relationship Specialty Start Date End Date Poly Copeland MD [address] [place] [address] PCP - General 09/15/10 documented as of this encounter
--- OUTSIDE RECORDS SUMMARY | 2024-09-14 12:45 | XMS_ITS | Encounter Summary ---
Author Organization [facility] [place] [address] Care Team Providers Care Blade Operator Name Role Phone Poly Copeland MD Primary Care Provider [phone] Encounter Details Date Type Department Care Team (Late st Contact Info) Description 10/27/2020 Ancillary Procedure Radiology Library at [facility] [place] [phone] Poly Copeland MD [facility] [address] [place], [place] [id number] Social History Tobacco Use Types Packs/Day Years [...] Comments FILM LIBRARY STORAGE ONLY CT CHEST Routine 10/27/2020 12:00 AM EST documented in this encounter Results * Film Library- Storage Only CT Chest (10/27/2020 12:00 AM EST) Narrative [facility] - 10/28/2020 10:54 AM EST This exam is auto-finalizing. It's purpose is for storage only. Poly Copeland MD [facility] FILM LIBRARY ORD ERABLES [facility] [place], [place] documented in this encounter Visit Diagnoses Not on filedocumented in this encounter Care Teams Blade Operator Relationship Specialty Start Date End Date Poly Copeland MD [address] [facility] [address] [facility] 1 [place] [address] PCP - General 09/15/10 documented as of this encounter
--- OUTSIDE RECORDS SUMMARY | 2024-09-14 12:45 | XMS_ITS | Clinical Summary ---
Author Organization [facility] Address [facility] [place] [address] Care Team Providers Care Test Data Developer Name Role Phone Poly Copeland MD Primary Care Provider [phone] Allergies Active Allergy Reactions Criticality Noted Date [...] 08/26/2006, 10/20/2005 Medical Devices Implanted Type Area Farmworker Cranberry Device Identifier Shelf Expiration Date Model / Serial / Lot Breast Clip-01/30/2018 Implanted:Qty: 1 on 01/30/2018 by Nguyen Hernandez MD Breast Clip Right: Breast Bard - 0614 jennifer clip 08/24/2020 [id number] / [id number] / Advance Directives Documents on File Type Date Recorded Patient Paint Maker Expl anation Advance Directives and Livin g Will 03/23/2018 7:51 AM 03/13/18 * Full Code (Latest Code Status on File) Date Activated Date Inactivated Comments 02/03/2017 12:18 PM 02/04/2017 4:37 AM Question Answer Comments Does patient have capacity to make decision: Yes Care Teams Test Data Developer Relationship Specialty Start Date End Date Poly Copeland MD [address] [place], [place] [address] PCP - General 09/15/10
--- OUTSIDE RECORDS SUMMARY | 2024-09-14 12:46 | XMS_ITS | Encounter Summary ---
[place] [address] Care Team Providers Care Biomass Production Manager Name Role Phone Poly Copeland MD Primary Care Provider [phone] Reason for Referral * Diagnostic Test (Routine) - Closed Specialty Diagnoses / Procedures Referred By Contac t Referred To Contact Radiology Diagnoses Malignant neoplasm of right female breast, unspecified estrogen receptor status, unspecified site of breast Procedures NM [place] Node Injection Breast wo Imaging Samantha Mayen MD [facility] [place] [address] [facility] [place] [address] Referral ID Status Reason Start Date Expiration Date V isits Requested Visits Authorized [id number] Closed Specialty Service Requested 03/02/2018 03/02/2019 1 1 Reason for Visit * Diagnostic Test (Routine) - Closed Specialty Diagnoses / Procedures Referred By Contac t Referred To Contact Radiology Diagnoses Malignant neoplasm of right female breast, unspecified estrogen receptor status, unspecified site of breast Procedures NM [place] Node Injection Breast wo Samantha Mccullough MD [facility] [place] [address] [facility] [place] [address] Referral ID Status Reason Start Date Expiration Date V isits Requested Visits Authorized [id number] Closed Specialty Service Requested 03/02/2018 03/02/2019 1 1 Encounter Details Date Type Department Care Team (Latest Contact Info) Description 03/17/2018 9:10 AM EDT - 03/17/2018 9:58 AM EDT Hospital Encounter Nuclear Medicine at [facility] [place] [address] Samantha Mayen MD [facility] [place] [address] Malignant neoplasm of right female breast, unspecified [...] documented in this encounter Results * NM [place] Node Injection Breast wo Imaging (03/17/2018 9:51 AM EDT) Anatomical Region Laterality Modality Nuclear Medicine Impressions 03/17/2018 1:18 PM EDT Mccook node injections performed without complication. Narrative 03/17/2018 [...] patient left the department ingood condition. IMPRESSION Mccook node injections performed without complication. Samantha Mayen MD [facility] [place] ORDERABLES documented in this encounter Visit [...] mCi documented in this encounter Care Teams Biomass Production Manager Relationship Specialty Start Date End Date Poly Copeland MD [address] [place] [address] PCP - General 09/15/10 documented as of this encounter
--- OUTSIDE RECORDS SUMMARY | 2024-09-14 12:46 | XMS_ITS | Encounter Summary ---
Author Organization [facility] Address [facility] [place] [address] Care Team Providers Care Information Services Manager Name Role Phone Poly Copeland MD Primary Care Provider [phone] Encounter Details Date Type Department Care Team (Late st Contact Info) Description 01/30/2018 1:31 PM EDT Hospital [place] [phone] Dulce Zavala MD [facility] DR [place] [address] Abnormal mammogram Discharge Disposition: Home Social History [...] unspecified documented in this encounter Care Teams Information Services Manager Relationship Specialty Start Date End Date Poly Copeland MD [address] [place] [address] PCP - General 09/15/10 documented as of this encounter
--- OUTSIDE RECORDS SUMMARY | 2024-09-14 12:46 | XMS_ITS | Encounter Summary ---
Author Organization [facility] Address [facility] [place] [address] Care Team Providers Care Manager Restaurant Name Role Phone Poly Copeland MD Primary Care Provider [phone] Encounter Details Date Type Department Care Team (Latest Contact Info) Description 03/31/2018 - 03/31/2018 11:59 PM EDT Hospital Encounter Radiology Library at [facility] [place] [place] [phone] Raffi Del Toro MD [facility] [place] [address] Discharge Disposition: Home Social History Tobacco Use [...] Abdomen Pelvis (03/31/2018 12:00 AM EDT) Narrative [facility] - 04/11/2018 12:18 PM EDT This exam is for storage only and is auto-finalizing. Raffi Del Toro MD IMG FILM LIBRARY ORD ERABLES [place], [place] documented in this encounter Visit Diagnoses Not on filedocumented in this encounter Care Teams Manager Restaurant Relationship Specialty Start Date End Date Poly Copeland MD [address] [place] [address] [address] [place] [address] PCP - General 09/15/10 documented as of this encounter
--- OUTSIDE RECORDS SUMMARY | 2024-09-14 12:46 | XMS_ITS | Encounter Summary ---
Author Organization [facility] [place] [address] Care Team Providers Care Fiscal Services Director Name Role Phone Poly Copeland MD Primary Care Provider [phone] Encounter Details Date Type Department Care Team (Late st Contact Info) Description 10/13/2018 6:00 PM EST Ancillary Procedure Radiology Library at [place] [address] Mary Duque APRN [address] [place] [address] [place] [address] Social History Tobacco Use Types Packs/Day Years [...] only and is auto-finalizing. Mary Duque APRN [facility] FILM LIBRARY ORD ERABLES [facility] [place] documented in this encounter Visit Diagnoses Not on filedocumented in this encounter Care Teams Fiscal Services Director Relationship Specialty Start Date End Date Poly Copeland MD [address] [place] [address] [address] [facility] 1 [place] [address] PCP - General 09/15/10 documented as of this encounter
--- OUTSIDE RECORDS SUMMARY | 2024-09-14 12:46 | XMS_ITS | Encounter Summary ---
Author Organization [facility] Address [facility] [place] [address] Care Team Providers Care Forest Scientist Name Role Phone Poly Copeland MD Primary Care Provider [phone] Reason for Visit * Reason Comments Genetic Evaluation bilateral breast can cer and colon cancer and fam hx of breast and colon cancer * Consultation (Routine) - Closed Specialty Diagnoses / Procedures Referred By Rajendra alvarez Referred To Contact Genetics / Hematology and Oncology Diagnoses Malignant neoplasm of upper-outer quadrant of right breast in female, estrogen receptor positive Genetic testing at [facility], due to b/l breast cancer and colon cancer Procedures Consult & Test Samantha Mayen MD [facility] [place] [address] Stj Hem Onc Office [address] [place] [phone] Referral ID Status Reason Start Date Expiration Date Visits Re quested Visits Authorized [id number] Closed 04/11/2018 04/11/2019 1 1 Encounter Details Date Type Department Care Team (Late st Contact Info) Description 09/06/2018 11:00 AM EST Office Visit Hematology/Oncology at [address] [address] Britt Hoover, [facility] HEMATOLOGY/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 Paternal ethnic background is Tr[place]ian and [place]. Genetic risk assessment Panel genetic testing for [...] ofgenetic testing. Kelly opted for testing with [facility] Common Hereditary Cancers Panel, a next generation sequencing panel that simultaneously analyzes 47 genes, including BRCA1 and BRCA2 and mismatch repair genes, that contribute to increased risk for cancer, including breast and colon. Kelly was consented. Her blood sample was drawn and sent to [facility]. Testing will take approximately 3 weeks. Kelly [...] positive documented in this encounter Care Teams Forest Scientist Relationship Specialty Start Date End Date Poly Copeland MD [address] [place] [address] PCP - General 09/15/10 documented as of this encounter
--- OUTSIDE RECORDS SUMMARY | 2024-09-14 12:46 | XMS_ITS | Encounter Summary ---
Author Organization [facility] [place] [place] [address] Care Team Providers Care Air Operations Manager Name Role Phone Poly Copeland MD Primary Care Provider [phone] Encounter Details Date Type Department Care Team (Latest Contact Info) Description 03/17/2018 9:59 AM EDT - 03/17/2018 4:00 PM EDT Hospital Encounter [place] [address] Deandre Mayen MD [facility] [place] [address] Discharge Disposition: Home Social History Tobacco Use [...] closest emergency room or call the hospital shotgun shell loading machine operator at [phone] and ask for physician correction officer city or county jail covering for your physician. Questions or problems after 5pm or on a weekend: Call the [facility] shotgun shell loading machine operator at and ask for the physician correction officer city or county jail covering for your doctor. At 10:45 am [...] arm until the drain is removed Call [phone] with any questions steristrips will fall off [...] daily and record output Call clinic at [phone] for drain removal when output less than [...] instructions, VNA referral and H&P faxed to [facility]. I called and , from [facility] didn't have any questions, said the report [...] mass. Biopsy revealed IDC which is strongly ER/NC+ and her2-. No other lesions were noted in either breast. Naila denies breast masses, nipple discharge, adenopathy ?? SH: Has 3 sons, 5 grandchildren and 2 great-grandchildren. History of tobacco- quit 16 years ago. Rare david sethi. 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 ?? PMH HTN Colon cancer DCIS RAD [...] Mayen MD - 03/17/2018 1:22 PM EDT [facility] Operative Note Patient Name: Kelly Strickland : [id number] MR#: [id number] Case Date: 03/17/2018 Surgeon: Surgeon(s) and Role: [...] was irrigated, hemostased, and closed over a 19-Sinhala Pasquale drain. Steriledressings were applied. Infection Bundle [...] PM EDT 03/17/2018 12:17 PM EDT Narrative [facility] - 03/17/2018 12:17 PM EDT Specimen requisition ordered. ??Separate Pathology report to follow Deandre Mayen MD PATHOLOGY/CYTOLOGY ORDERABLES [facility] [place] [address] * Specimen to Pathology (03/17/2018 12:13 PM EDT) AP Specimen 03/17/2018 12:1 3 PM EDT 03/17/2018 12:13 PM EDT Narrative [facility] - 03/17/2018 12:13 PM EDT Specimen requisition ordered. ??Separate Pathology report to follow Deandre Mayen MD PATHOLOGY/CYTOLOGY ORDERABLES [facility] [place] [address] * Surgical Pathology Report (03/17/2018 12:12 PM EDT) Final Diagnosis ? Location: [facility] The signing pathologist has (i) examined the relevant preparation(s) for the specimen(s) and (ii) rendered or confirmed the diagnosis(es). . ? Addendum ADDENDUM DISCUSSION SPECIAL TEST PERFORMED: Test: ??Oncotype DX [facility] Case: ??, block A3 Performing Lab: ??[facility] Performing Lab Case: ??[id number] Reported by Lavon العلي MD Date reported: ??05/11/2018 For the full text of the [facility] report please refer to [facility] Pathology in the electronic health record (eDH). Electronically signed by: ??José Miguel MEDRANO, Fili Campbell Verified: ??05/17/2018 ?Pathologist Performed at: ??-[facility], [place], [place] ?Surgical Pathology DIAGNOSIS A - Right [...] ?? Invasive ductal carcinoma ? Histologic Grade ([place] Histologic Score) ?Glandular (Acinar) / Tubular Differentiation: [...] 200 cells): ? 0 ? Number of [place] Nodes Examined: ?2 Pathologic Stage Classification (pTNM, AJCC 8th Edition) ? Primary Tumor (Invasive Carcinoma) (pT): ?pT1b ? Regional Lymph Nodes (pN) ?Modifier: ??(sn): Only sentinel node(s) evaluated. ?Category (pN): ?? pN0 Tumor Block(s): ?? A3 2016 AJCC 8th Edition CAP Annual Release ER, NC, and HER2 studies (performed on prior biopsy, -[id number]): ER: Positive ( >90%, strong) NC: Positive ( >90%, strong) HER2 FISH: Negative Electronically signed by: ??Fili Valdez MD Verified: ??03/22/2018 ?Pathologist Performed at: ??[facility], [facility], [place], [place] DISCUSSION The tumor measures at least 6 mm in the prior core biopsy, [id number]. In this specimen, the greatest microscopic measurement [...] with yellow-white discoloration adjacent to the inserted [place] biopsy site marker. Consistency: Firm. Borders: Well [...] (black) margin; (5) adjacent inferior parenchyma; (6) [employer] Dynamics Ax Developer lower outer quadrant parenchyma; (7) [employer] Dynamics Ax Developer upper outer quadrant parenchyma; (8) regional sales representative upper inner quadrant parenchyma; (9) [employer] Dynamics Ax Developer lower inner quadrant parenchyma. ?? (R9) Ischemic Time: 2 hours, 45 minutes B - ?? Labeled/Fixative: Right axillary sentinel lymph node, fresh. Quantity/Size: Two, 1.0 x 0.7 x 0.5 cm and 1.5 x 1.0 x 0.7 cm Tissue Description: Cortes-brown lymph nodes with surrounding adipose tissue Sections/Processin g: Both lymph nodes are serially sectioned and entirely submitted (T2) ??bradley 05/17/2018 4:49 PM EDT [facility] SENTINEL LYMPH NODE / Unknown 03/17/2018 12:12 PM EDT 03/17/2018 12:12 PM EDT SENTINEL LYMPH NODE / Unknown 03/17/2018 12:12 PM EDT 03/17/2018 12:12 PM EDT Deandre Mayen MD PATHOLOGY/CYTOLOGY ORDERABLES [facility] [place] [address] documented in this encounter Visit Diagnoses Not [...] CRNA) documented in this encounter Care Teams Air Operations Manager Relationship Specialty Start Date End Date Poly Copeland MD [address] [place] [address] 1 [place] [address] PCP - General 09/15/10 documented as of this encounter
--- OUTSIDE RECORDS SUMMARY | 2024-09-14 12:46 | XMS_ITS | Encounter Summary ---
Author Organization [facility] [place] [address] Care Team Providers Care Geriatric Aide Name Role Phone Poly Copeland MD Primary Care Provider [phone] Reason for Visit * Reason Onset Date Comments Medication Reaction 07/13/2018 Intolerant l etrozole Encounter Details Date Type Department Care Team (Late st Contact Info) Description 07/13/2018 Telephone Hematology/Oncology at [address] [address] Mary Granda RN Medication Reaction [...] on filedocumented in this encounter Care Teams Geriatric Aide Relationship Specialty Start Date End Date Poly Copeland MD [address] [place] [address] PCP - General 09/15/10 documented as of this encounter
--- OUTSIDE RECORDS SUMMARY | 2024-09-14 12:46 | XMS_ITS | Encounter Summary ---
Author Organization [facility] [place] [address] Care Team Providers Care Surgical Corsetier Name Role Phone Poly Copeland MD Primary Care Provider Reason for Visit * Reason Onset Date Comments Follow-up 10/05/2018 Encounter Details Date Type Department Care Team (Late st Contact Info) Description 10/05/2018 Telephone Hematology/Oncology at [address] [address] Vidhi Hughes RN Follow-up Social [...] to let her know per Mary Duque WATER PURIFIER that her creatinine was 1 which is fine for the upcoming CT scan. documented in this encounter Plan of Treatment Not on file documented as of this encounter Visit Diagnoses Not on filedocumented in this encounter Care Teams Surgical Corsetier Relationship Specialty Start Date End Date Poly Copeland MD [address] [place], [place] [id number] PCP - General 09/15/10 documented as of this encounter
--- OUTSIDE RECORDS SUMMARY | 2024-09-14 12:46 | XMS_ITS | Encounter Summary ---
Author Organization [facility] [place] [address] Care Team Providers Care Stave Grader Name Role Phone Poly Copeland MD Primary Care Provider [phone] Encounter Details Date Type Department Care Team (Late st Contact Info) Description 08/10/2018 1:30 PM EDT Office Visit Hematology/Oncology at [address] [address] Mary Duque, AGRONOMY MANAGER [address] [facility] [place] [address] Carcinoma in situ of breast, unspecified laterality, [...] this encounter Progress Notes * Mary Duque, AGRONOMY MANAGER - 08/10/2018 1:30 PM EDT Subjective: Patient ID: Kelly Strickland is a 78 y.o. female. Problem List: 1. 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 Right breast mammogram 01/25/18 ([facility] review) - IMPRESSION/recommendation: Right breast lesion 1 BI-RADS Category 0: Assessment incomplete. 0.6 cm mass 10:00 position 11 cm from the nipple. Recommend second look ultrasound to determine if this will get up graded to category4 and require biopsy [facility] cancer cells with immunostaining) Stain intensity: Strong KS immunoreactivity: Positive ( ??>90% cancer cells with [...] Type: ?? Invasive ductal carcinoma ?Histologic Grade ([place] Histologic Score) ? Glandular (Acinar) / Tubular [...] and ??<= 200 cells): 0 ?Number of [place] Nodes Examined: ?2 Pathologic Stage Classification (pTNM, [...] review) - CONSULTATION CASE Outside slide(s) labeled [id number], collection date 01/23/2017. Ascending colon, cecum, terminal [...] resolved. Soc Hx: , lives alone in [place], [place] Tob - Quit 17 years ago Etoh - None [employer] Fam Hx: Father - at age 81, [...] the right breast, T1b, N0, int grade, ER/KS strongly positive, Her- 2/odilon negative: Shehas a right breast mammogram (s/p prior left mastectomy for DCIS) done in early 02/08 which showed a0.6 cm mass at 10:00 in the right breast. Biopsy showed invasive ductal carcinoma wth lobular features, int grade, ER/KS positive and Her-2/odilon negative. On 03/17/18 she [...] with our Genetics Counselor Mary Duque, MSN, ARTIFICIAL INSEMINATION TECHNICIAN, AOCN Hematology/Oncology Nurse Practitioner [place], [place] [phone] documented in this encounter Plan of Treatment [...] colon documented in this encounter Care Teams Stave Grader Relationship Specialty Start Date End Date Poly Copeland MD [address] [facility] 1 [place] [address] PCP - General 09/15/10 documented as of this encounter
--- OUTSIDE RECORDS SUMMARY | 2024-09-14 12:46 | XMS_ITS | Encounter Summary ---
Author Organization [facility] [place] [address] Care Team Providers Care Manufacturing Industrial Engineer Name Role Phone Poly Copeland MD Primary Care Provider [phone] Encounter Details Date Type Department Care Team (Late st Contact Info) Description 03/27/2018 Telephone [place] [address] Mimi Briones RN Social History [...] a message from Magda Porras RN with [facility]. She is calling to report that the pt's drain is getting close to meeting criteria for removal. She requests orders be faxed to [facility] to remove the drain so they are [...] and ask to speak to the Doctor batting machine operator insulation ?? You need to keep your drain [...] on filedocumented in this encounter Care Teams Manufacturing Industrial Engineer Relationship Specialty Start Date End Date Poly Copeland MD [address] [place] [address] PCP - General 09/15/10 documented as of this encounter
--- OUTSIDE RECORDS SUMMARY | 2024-09-14 12:46 | XMS_ITS | Encounter Summary ---
[place] [address] Care Team Providers Care Street Openings Inspector Name Role Phone Poly Copeland MD Primary Care Provider [phone] Encounter Details Date Type Department Care Team (Late st Contact Info) Description 03/02/2018 Orders [place] [phone] Elizabeth Sharif, RN Social History Tobacco Use [...] on filedocumented in this encounter Care Teams Street Openings Inspector Relationship Specialty Start Date End Date Poly Copeland MD [address] [place] [address] [address] [place], [place] [address] PCP - General 09/15/10 documented as of this encounter
--- OUTSIDE RECORDS SUMMARY | 2024-09-14 12:46 | XMS_ITS | Encounter Summary ---
Author Organization [facility] [place] [address] Care Team Providers Care Business Support Associate Name Role Phone Poly Copeland MD Primary Care Provider [phone] Encounter Details Date Type Department Care Team (Late st Contact Info) Description 03/06/2018 Telephone Hematology [place] [phone] Kina Tay Social History Tobacco Use Types [...] filedocumented in this encounter Care Teams Business Support Associate Relationship Specialty Start Date End Date Poly Copeland MD [address] [place] [address] PCP - General 09/15/10 documented as of this encounter
--- OUTSIDE RECORDS SUMMARY | 2024-09-14 12:46 | XMS_ITS | Encounter Summary ---
Author Organization [facility] [place] [address] Care Team Providers Care Manager Contracting Name Role Phone Poly Copeland MD Primary Care Provider [phone] Encounter Details Date Type Department Care Team (Latest Contact Info) Description 03/01/2018 9:05 AM EDT Laboratory Appointment Lab [address] [place] [phone] Malignant neoplasm of right breast in female, [...] 8:57 AM EDT) Neutrophil % 57.1 % [facility] Neutrophil Absolute 4.31 1.70 - 6.10 x10(3)/[facility] Lymph % 31.3 % [facility] Lymphocytes Abs 2.4 0.9 - 3.2 x10(3)/[facility] Monocyte % 8.9 % [facility] Monocyte Abs 0.7 0.3 - 0.9 x10(3)/[facility] Eos % 1.9 % [facility] Eosinophils Abs 0.1 0.0 - 0.4 x10(3)/[facility] Basophil % 0.5 % [facility] Baso Absolute 0.0 0.0 - 0.1 x10(3)/[facility] Immature Gran % 0.30 % [facility] Comment: Immature granulocytes(IG's)percentage and absolute count will include metamyelocytes, myelocytes, and promyelocytes. Blood smears from CBCs yielding IG's will be scanned manually for concordance. If this scan disagrees with the automated IG or if promyelocytes are noted, a manual differential will be performed. Immature Gran Absolute 0.02 0.00 - 0.04 x10(3)/[facility] Blood specimen (specimen) 03/01/2018 8:57 AM EDT 03/01/2018 9:01 AM EDT Narrative Resulting Agency Comment Spec In Lab Samantha Mayen MD HEMATOLOGY ORDERABL ES [facility] [place] [address] * (ABNORMAL) Hemogram (03/01/2018 8:57 AM EDT) White Blood Cell 7.5 4.0 - 9.5 x10(3)/mc L [facility] Red Blood Cell 4.78 4.00 - 5.21 x10(6)/mc L [facility] Hemoglobin 13.7 11.7 - 15.5 gm/dL [facility] Hematocrit 43.0 35.7 - 45.8 % [facility] Mean Cell Volume 90.0 82.6 - 94.4 fL [facility] Mean Cell Hemoglobin 28.7 27.1 - 32.0 pg [facility] Mean Cell Hemoglobin Concentration 31.9 31.7 - 35.0 gm/dL [facility] Platelet 207 145 - 357 x10(3)/ L [facility] RDW Standard Deviation 46.6(H) 37.0 - 46.0 [facility] [place] [facility] RDW coefficient of variation 14.1 11.5 - 14.1 % [facility] Mean Platelet Volume 9.5 7.6 - 12.9 [facility] NRBC% auto 0.0 % [facility] NRBC Absolute 0.000 0.000 - 0.000 x10(3)/[facility] Blood specimen (specimen) 03/01/2018 8:57 AM EDT 03/01/2018 9:01 AM EDT Narrative Resulting Agency Comment Spec In Lab Samantha Mayen MD HEMATOLOGY ORDERABL ES [facility] [place] [place] [address] * (ABNORMAL) Comprehensive metabolic panel (non-fasting) (03/01/2018 8:57 AM EDT) Glucose 105 65 - 199 mg/dL [facility] Comment:Diabetes: >=200 mg/d L plus symptoms Blood Urea Nitrogen 16 8 - 18 mg/dL [facility] Creatinine 0.96 0.70 - 1.20 mg/dL [facility] Sodium 143 135 - 145 mmol/L [facility] Potassium 4.4 3.5 - 5.0 mmol/L [facility] Comment: Please note: ??Patients with WBC >100,000 may have falsely elevated Potassium levels. ??For accurate Potassium quantification in these patients send serum separator tube (gold top) for subsequent determinations. ??Contact the Clinical Chemistry Laboratory if there are any questions. Chloride 99 98 - 107 mmol/L [facility] Carbon Dioxide 30 22 - 31 mmol/L [facility] Anion Gap 14 5 - 15 mmol/L [facility] Calcium 9.7 8.5 - 10.5 mg/dL [facility] Protein, Total 7.4 6.1 - 8.0 gm/dL [facility] Albumin 4.5 3.2 - 5.2 gm/dL [facility] Aspartate Aminotransferase 17 0 - 30 unit/L [facility] Alanine Aminotransferase 14 0 - 30 unit/L [facility] Alkaline Phosphatase 72 40 - 104 unit/L [facility] Bilirubin, Total 0.3 0.2 - 1.3 mg/dL [facility] Est Glomerular Filtration Rate 57(L) >=60 [facility] Comment: The reported eGFR should be multiplied by 1.2 for patients. The MDRD is not an appropriate measure of renal function for patients with body mass extremes or in patients with acute kidney failure. http://ZanAqua.MindBodyGreen/DHnkdep [email or web address]://ZanAqua.MindBodyGreen/DHMCnkf Blood specimen (specimen) 03/01/2018 8:57 AM EDT 03/01/2018 9:01 AM EDT Narrative Resulting Agency Comment Spec In Lab Samantha Mayen MD CHEMISTRY ORDERABLE S [facility] [place] [address] documented in this encounter Visit Diagnoses Diagnosis Malignant neoplasm of right breast in female, estrogen receptor positive, unspecified site of breast documented in this encounter Care Teams Manager Contracting Relationship Specialty Start Date End Date Dobbertin, Poly, MD [address] [place] [address] PCP - General 09/15/10 documented as of this encounter
--- OUTSIDE RECORDS SUMMARY | 2024-09-14 12:46 | XMS_ITS | Encounter Summary ---
Author Organization [facility] [place] [address] Care Team Providers Care Business Process Manager Name Role Phone Poly Copeland MD Primary Care Provider [phone] Encounter Details Date Type Department Care Team (Late st Contact Info) Description 02/02/2018 Orders [place] [address] Samantha Mayen MD [facility] [place] [address] Malignant neoplasm of right breast in female, [...] EDT) Glucose 105 65 - 199 mg/dL [facility] Comment:Diabetes: >=200 mg/d L plus symptoms Blood Urea Nitrogen 16 8 - 18 mg/dL [facility] Creatinine 0.96 0.70 - 1.20 mg/dL [facility] Sodium 143 135 - 145 mmol/L [facility] Potassium 4.4 3.5 - 5.0 mmol/L [facility] Comment: Please note: ??Patients with WBC >100,000 may have falsely elevated Potassium levels. ??For accurate Potassium quantification in these patients send serum separator tube (gold top) for subsequent determinations. ??Contact the Clinical Chemistry Laboratory if there are any questions. Chloride 99 98 - 107 mmol/L [facility] Carbon Dioxide 30 22 - 31 mmol/L [facility] Anion Gap 14 5 - 15 mmol/L [facility] Calcium 9.7 8.5 - 10.5 mg/dL [facility] Protein, Total 7.4 6.1 - 8.0 gm/dL [facility] Albumin 4.5 3.2 - 5.2 gm/dL [facility] Aspartate Aminotransferase 17 0 - 30 unit/L [facility] Alanine Aminotransferase 14 0 - 30 unit/L [facility] Alkaline Phosphatase 72 40 - 104 unit/L [facility] Bilirubin, Total 0.3 0.2 - 1.3 mg/dL [facility] Est Glomerular Filtration Rate 57(L) >=60 [facility] Comment: The reported eGFR should be multiplied by 1.2 for patients. The MDRD is not an appropriate measure of renal function for patients with body mass extremes or in patients with acute kidney failure. http://Wyoos.Reality Sports Online/DHnkdep http://Right Skills/DHMCnkf Blood specimen (specimen) 03/01/2018 8:57 AM EDT 03/01/2018 9:01 AM EDT Narrative Resulting Agency Comment Spec In Lab Samantha Mayen MD CHEMISTRY ORDERABLE S [facility] [place] [address] documented in this encounter Visit Diagnoses Diagnosis Malignant neoplasm of right breast in female, estrogen receptor positive, unspecified site of breast documented in this encounter Care Teams Business Process Manager Relationship Specialty Start Date End Date Poly Copeland MD [address] [place] [address] PCP - General 09/15/10 documented as of this encounter
--- OUTSIDE RECORDS SUMMARY | 2024-09-14 12:46 | XMS_ITS | Encounter Summary ---
Author Organization [facility] [place] [address] Care Team Providers Care Golf Course Ranger Name Role Phone Poly Copeland MD Primary Care Provider [phone] Encounter Details Date Type Department Care Team (Late st Contact Info) Description 03/13/2018 Telephone Hematology [place] [address] Giana Mitchell RN Social History [...] Naila, is a 77 y.o. female with ER/NM+/HER2 odilon- right breast invasive ductal cancer scheduled [...] her satisfaction. Reminded her that we requested [facility] to come into her home to help with drain and post operative cares on 03/18 (request faxed 03/13). She is in agreement with the plan and thanked us for our time. Addendum 03/13/18: [facility] does not provide services in [place]. Referral for post operative [facility]NA services faxed to [facility], [facility] and [facility], [place], [place] and they were also called. documented in this encounter Plan of Treatment Not on file documented as of this encounter Visit Diagnoses Not on filedocumented in this encounter Care Teams Golf Course Ranger Relationship Specialty Start Date End Date Poly Copeland MD [address] [place] [address] PCP - General 09/15/10 documented as of this encounter
--- OUTSIDE RECORDS SUMMARY | 2024-09-14 12:46 | XMS_ITS | Encounter Summary ---
Author Organization [facility] [place] [address] Care Team Providers Care Classification Case Manager Name Role Phone Poly Copeland MD Primary Care Provider [phone] Reason for Visit * Reason Onset Date Comments Other 10/09/2018 Encounter Details Date Type Department Care Team (Late st Contact Info) Description 10/09/2018 Telephone Hematology/Oncology at [address] [address] Vidhi Hughes RN Other Social [...] 10/09/2018 9:04 AM EST Per Mary Duque EXECUTIVE COMPENSATION ANALYST called pt and asked her to drink at least a liter of fluid prior to and after ct scan on 10/13/18. Pt agrees with plan. documented in this encounter Plan of Treatment Not on file documented as of this encounter Visit Diagnoses Not on filedocumented in this encounter Care Teams Classification Case Manager Relationship Specialty Start Date End Date Poly Copeland MD [address] [place], [place] [address] PCP - General 09/15/10 documented as of this encounter
--- OUTSIDE RECORDS SUMMARY | 2024-09-14 12:46 | XMS_ITS | Encounter Summary ---
Author Organization [facility] Address [facility] [place] [address] Care Team Providers Care Manager Utility Name Role Phone Poly Copeland MD Primary Care Provider [phone] Encounter Details Date Type Department Care Team (Late st Contact Info) Description 01/30/2018 [place] [address] Anabell Muñoz MD [facility] [place] [address] Social History Tobacco Use Types Packs/Day Years [...] filedocumented in this encounter Care Teams Manager Utility Relationship Specialty Start Date End Date Poly Copeland MD [address] [place] [address] PCP - General 09/15/10 documented as of this encounter
--- OUTSIDE RECORDS SUMMARY | 2024-09-14 12:46 | XMS_ITS | Encounter Summary ---
Author Organization [facility] Address [facility] [place] [address] Care Team Providers Care Rod Filler Name Role Phone Poly Copeland MD Primary Care Provider [phone] Encounter Details Date Type Department Care Team (Latest Contact Info) Description 01/30/2018 2:27 PM EDT - 01/30/2018 11:59 PM EDT Hospital En[place] [phone] Anabell Muñoz MD [facility] [place] [address] Abnormal mammogram Discharge Disposition: Home Social History [...] obtained using a 14-gauge automated device. A DecoSnap 14G marker clip was placed. The clip [...] PM EDT 01/30/2018 2:49 PM EDT Narrative [facility] - 01/30/2018 2:49 PM EDT Specimen requisition ordered. ??Separate Pathology report to follow Anabell Muñoz MD PATHOLOGY/CYTOLOGY ORDERABLES [facility] [place] [address] * Surgical Pathology Report (01/30/2018 2:45 PM EDT) Final Diagnosis [id number] ? Location: 3L The signing pathologist has [...] FISH. ??Direct analysis was performed using the HandInScan Kit. ??Slide adequacy and signal enumeration were [...] factor receptor 2 testing in breast cancer: [place] Society of Clinical Oncology/College of [place] Pathologists clinical practice guideline update. J Clin Oncol.2013 Nov . Reviewed by: Magda Rosa MD Borderer, Molecular Pathology _ Electronically signed by: ??Chino MEDRANO, Rashaun Verified: ??02/03/2018 ?Pathologist Performed at: ??-[facility] [place], [place], [place] ?Surgical Pathology DIAGNOSIS Needle biopsies: ??Right breast. 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 Microcalcification s: ??NA . DIAGNOSIS On A1 - ER immunoreactivity: Positive ( ??>90% cancer cells with immunostaining) Stain intensity: Strong HI immunoreactivity: Positive ( ??>90% cancer cells with [...] The assays were performed according to the sales teacher ? 's instructions using Anti-ER (SP1) and Anti-HI (16) antibodies. Electronically signed by: ??Sonia Oh DO Verified: ??02/01/2018 ?Pathologist Performed at: ??-[facility] [place], [place], [place] CLINICAL INFORMATION Specimen Submitted: A - [...] g: (T1) ??pps 02/03/2018 6:15 PM EDT [facility] BREAST STRUCTURE / Unknown 01/30/2018 2:45 PM EDT 01/30/2018 2:45 PM EDT Anabell Muñoz MD PATHOLOGY/CYTOLOGY ORDERABLES [facility] [place] [address] documented in this encounter Visit Diagnoses Diagnosis [...] mg documented in this encounter Care Teams Rod Filler Relationship Specialty Start Date End Date Poly Copeland MD [address] [place] [address] PCP - General 09/15/10 documented as of this encounter
--- OUTSIDE RECORDS SUMMARY | 2024-09-14 12:46 | XMS_ITS | Encounter Summary ---
Author Organization [facility] Address [facility] [place] [address] Care Team Providers Care Transportation Dispatch Manager Name Role Phone Poly Copeland MD Primary Care Provider [phone] Encounter Details Date Type Department Care Team (Latest Contact Info) Description 05/02/2018 - 05/02/2018 11:59 PM EDT Hospital Encounter Radiology Library at [facility], [place] [phone] Mary Duque, SUNNI [address] [facility] [place] [address] Discharge Disposition: Home Social History Tobacco Use [...] Duque APRN IMG FILM LIBRARY ORD ERABLES [place], [place] documented in this encounter Visit Diagnoses Not on filedocumented in this encounter Care Teams Transportation Dispatch Manager Relationship Specialty Start Date End Date Poly Copeland MD [address] [place] [address] PCP - General 09/15/10 documented as of this encounter
--- OUTSIDE RECORDS SUMMARY | 2024-09-14 12:46 | XMS_ITS | Encounter Summary ---
Author Organization [facility] Address [facility] [place] [address] Care Team Providers Care Steam Presser Name Role Phone Poly Copeland MD Primary Care Provider [phone] Reason for Referral * Physical Therapy (Routine) - Specialty Diagnoses / Procedures Referred By Contgail t Referred To Contact Physical Therapy Diagnoses Malignant neoplasm of right female breast, unspecified estrogen receptor status, unspecified site of breast Samantha Mayen MD [facility] [place] [address] Referral ID Status Reason Start Date Expiration Date V isits Requested Visits Authorized [id number] Evaluate and Treat 03/22/2018 09/18/2018 12 12 Encounter Details Date Type Department Care Team (Late st Contact Info) Description 03/22/2018 Orders [place] [address] Samantha aMyen MD [facility] [place] [address] Malignant neoplasm of right female breast, unspecified [...] breast documented in this encounter Care Teams Steam Presser Relationship Specialty Start Date End Date Poly Copeland MD [address] [place] [address] PCP - General 09/15/10 documented as of this encounter
--- OUTSIDE RECORDS SUMMARY | 2024-09-14 12:46 | XMS_ITS | Encounter Summary ---
Author Organization [facility] [place] [address] Care Team Providers Care Field Marketer Name Role Phone Poly Copeland MD Primary Care Provider [phone] Encounter Details Date Type Department Care Team (Late st Contact Info) Description 09/18/2018 Telephone Hematology [place] [phone] Britt Hoover [facility] DR HEMATOLOGY/[place] [address] Social History Tobacco Use Types Packs/Day Years [...] on filedocumented in this encounter Care Teams Field Marketer Relationship Specialty Start Date End Date Poly Copeland MD [address] [place] [address] PCP - General 09/15/10 documented as of this encounter
--- OUTSIDE RECORDS SUMMARY | 2024-09-14 12:46 | XMS_ITS | Encounter Summary ---
Author Organization [facility] [place] [address] Care Team Providers Care Concrete Buster Operator Name Role Phone Poly Copeland MD Primary Care Provider [phone] Encounter Details Date Type Department Care Team (Late st Contact Info) Description 03/13/2018 Notes Only Hematology and Oncology at [facility] [place] [phone] Giana Mitchell, RN Social History Tobacco Use [...] 03/13/2018 3:46 PM EDT 03/13/18 Referral to: [facility], [address] [address] REFERRAL FORM 24 hour Referral *Fax (Office Hours M-F 8:00-4:3 PM): [phone] Referral Date03/13/2018 New Admission: Re-Admission: Resumption of Care: PATIENT INFORMATION Last Name: First Name: Kelly Mailing Address: Service Address: City: [facility] Emergency Contact: Phone Number: Contact Phone: : Gender: female Marital Status: REFERRAL INFORMATION Visit to occur within 24 hours of discharge Requested First Visit Date: Home Care: Admit Date: SN: PT: OT: ST: Discharge Date: REFERRAL SOURCE INFORMATION [facility] Clinic 4 L Address: [facility] City: [place] State: [place] Zip: [address] Referral Contact:General Surgery Nurses for 1st visit: [...] day for post-operative assessment. Home Care Orders: Correction (RN) ?? Inspect incision and drain site [...] assessment, treatment and follow up. Call Doc air pollution inspector or Clinic ?? Pain assessment 0-10 scale: [...] on filedocumented in this encounter Care Teams Concrete Buster Operator Relationship Specialty Start Date End Date Poly Copeland MD [address] [facility] 1 [place] [address] PCP - General 09/15/10 documented as of this encounter
--- OUTSIDE RECORDS SUMMARY | 2024-09-14 12:46 | XMS_ITS | Encounter Summary ---
Author Organization [facility] [place] [address] Care Team Providers Care Legal Arbitrator Name Role Phone Poly Copeland MD Primary Care Provider [phone] Reason for Visit * Reason Comments Follow-up Encounter Details Date Type Department Care Team (Late st Contact Info) Description 04/05/2018 3:30 PM EDT Office Visit [place] [address] Samantha Mayen MD [facility] [place] [address] Malignant neoplasm of upper-outer quadrant of right [...] Histologic Type: Invasive ductal carcinoma Histologic Grade (Orrum Histologic Score) Glandular (Acinar) / Tubular Differentiation: [...] and <= 200 cells): 0 Number of [place] Nodes Examined: 2 Pathologic Stage Classification (pTNM, AJCC 8th Edition) Primary Tumor (Invasive Carcinoma) (pT): pT1b Regional Lymph Nodes (pN) Modifier: (sn): Only sentinel node(s) evaluated. Category (pN): pN0 Tumor Block(s): A3 2016 AJCC 8th Edition CAP Annual Release ER, NC, and HER2 studies (performed on prior biopsy, [id number]): ER: Positive (>90%, strong) NC: Positive (>90%, strong) HER2 FISH: Negative ??Naila is doing very well. She has no complaints. SH: Has 3 sons, 5 grandchildren and 2 great-grandchildren. History of tobacco- quit 16 years ago. Rare hernandez jossie. 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 ?? PMH HTN Colon cancer DCIS RAD [...] in 1 year. Plan genetic counseling in [facility] given b/l breast cancer and colon cancer. documented in this encounter Plan of Treatment Not on file documented as of this encounter Visit Diagnoses Diagnosis Malignant neoplasm of upper-outer quadrant of right breast in female, estrogen receptor positive documented in this encounter Care Teams Legal Arbitrator Relationship Specialty Start Date End Date Poly Copeland MD [address] [facility] [place] [address] PCP - General 09/15/10 documented as of this encounter
--- OUTSIDE RECORDS SUMMARY | 2024-09-14 12:46 | XMS_ITS | Encounter Summary ---
Author Organization [facility] Address [facility] [place] [address] Care Team Providers Care Car Checker Name Role Phone Poly Copeland MD Primary Care Provider [phone] Encounter Details Date Type Department Care Team (Late st Contact Info) Description 03/01/2018 Notes [place] [phone] Sheryl Au MSW Social History Tobacco Use [...] 12:16 PM EDT OFFICE OF CARE MANAGEMENT/CONTINUING LATHE SET UP OPERATOR Reason for referral: Kelly Strickland is a [...] receive her medical oncology care at the [facility] with Dr. Del Toro who treated her colon cancer. [facility] met with pt to complete a psychosocial assessment and to explain my role in the breast program. Pt was encouraged to contact me if she has any questions or concerns. Living arrangements/social supports: Pt lives alone in [place], [place]. She has three sons. Two live in [place] in the [facility] and one resides in [place]. Pt states she has support from her family and her son, MERRICK, accompanied her to today's visit. 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 She has Medicare A and B and has been approved for financial assistance at [facility]. Pthas prescription coverage through [employer], a [place] prescription program. Tobacco/drug/alcohol history: Pt [...] completed treatment for colon cancer at the [facility] and will continue her breast cancer care with Dr. Del Toro, her medical oncologist. Pt is aware of the support and services available to her in cancer center. Plan: [facility] will continue to follow pt to assess and assist with their psychosocial needs. CARLIE Flores [facility] [phone] Pager #[phone] documented in this encounter Plan of Treatment Not on file documented as of this encounter Visit Diagnoses Not on filedocumented in this encounter Care Teams Car Checker Relationship Specialty Start Date End Date Poly Copeland MD [address] [facility] 1 [place] [address] PCP - General 09/15/10 documented as of this encounter
--- OUTSIDE RECORDS SUMMARY | 2024-09-14 12:46 | XMS_ITS | Encounter Summary ---
Author Organization [facility] Address [facility] [place] [address] Care Team Providers Care Handle Rounder Operator Name Role Phone Poly Copeland MD Primary Care Provider [phone] Encounter Details Date Type Department Care Team (Latest Contact Info) Description 08/15/2018 - 08/15/2018 11:59 PM EDT Hospital Encounter Radiology Library at [facility] [place] [phone] Mary Duque, SUNNI [address] [facility] [place] [address] Discharge Disposition: Home Social History Tobacco Use [...] nuclear medicine (08/15/2018 12:00 AM EDT) Narrative [facility] - 08/16/2018 10:28 AM EDT This exam is for storage only and is auto-finalizing. Mary Duque APRN IMRena FILM LIBRARY ORD ERABLES [place], [place] documented in this encounter Visit Diagnoses Not on filedocumented in this encounter Care Teams Handle Rounder Operator Relationship Specialty Start Date End Date Poly Copeland MD [address] [place] [address] [address] [facility] 1 [place] [address] PCP - General 09/15/10 documented as of this encounter
--- OUTSIDE RECORDS SUMMARY | 2024-09-14 12:46 | XMS_ITS | Encounter Summary ---
Author Organization [facility] [place] [address] Care Team Providers Care Speech Language Pathologist Prn Name Role Phone Poly Copeland MD Primary Care Provider [phone] Encounter Details Date Type Department Care Team (Late st Contact Info) Description 06/16/2018 8:15 AM EDT Office Visit Hematology/Oncology at [address] [address] Mary Duque, RETOUCHER PHOTOENGRAVING [address] [facility] [place] [address] Malignant neoplasm of right breast in female, [...] encounter Progress Notes * Dunia Mary A, RETOUCHER PHOTOENGRAVING - 06/16/2018 8:15 AM EDT Subjective: Patient ID: Kelly Strickland is a 78 y.o. female. Problem List: 1. Cancer of the right breast, pT1b, N0, Int grade, ER/AR +, Her-2/odilon negative A. Right breast mammogram 01/25/18 ([facility] review) - IMPRESSION/recommendation: Right breast lesion 1 BI-RADS Category 0: Assessment incomplete. 0.6 cm mass 10:00 position 11 cm from the nipple. Recommend second look ultrasound to determine if this will get up graded to category4 and require biopsy Mammogram at [facility] 01/30/18 - IMPRESSION: Highly suspicious 0.7 cm [...] cancer cells with immunostaining) Stain intensity: Strong AR immunoreactivity: Positive ( ??>90% cancer cells with [...] and ??<= 200 cells): 0 ?Number of [place] Nodes Examined: ?2 Pathologic Stage Classification (pTNM, [...] review) - CONSULTATION CASE Outside slide(s) labeled [id number], collection date 01/23/2017. Ascending colon, cecum, terminal [...] flashes. Soc Hx: , lives alone in [place], [place] Tob - Quit 17 years ago [...] the right breast, T1b, N0, int grade, ER/AR strongly positive, Her- 2/odilon negative: Shehas a right breast mammogram (s/p prior left mastectomy for DCIS) done in early 02/08 which showed a0.6 cm mass at 10:00 in the right breast. Biopsy showed invasive ductal carcinoma wth lobular features, int grade, ER/AR positive and Her-2/odilon negative. On 03/17/18 she [...] with our Genetics Counselor Mary Duque, MSN, KINDERGARTEN CLASSROOM TEACHER, AOCN Hematology/Oncology Nurse Practitioner [place], [place] [phone] documented in this encounter Plan of Treatment [...] colon documented in this encounter Care Teams Speech Language Pathologist Prn Relationship Specialty Start Date End Date Poly Copeland MD [address] [facility] 1 [place] [address] PCP - General 09/15/10 documented as of this encounter
--- OUTSIDE RECORDS SUMMARY | 2024-09-14 12:46 | XMS_ITS | Encounter Summary ---
Author Organization [facility] Address [facility] [place] [address] Care Team Providers Care Sanding Machine Tender Name Role Phone Poly Copeland MD Primary Care Provider [phone] Reason for Referral * Diagnostic Test (Routine) - Closed Specialty Diagnoses / Procedures Referred By Contac t Referred To Contact Radiology Diagnoses Malignant neoplasm of right female breast, unspecified estrogen receptor status, unspecified site of breast Procedures NM [place] Node Injection Breast wo Imaging Samantha Mayen MD [facility] [place] [address] [place] [address] Referral ID Status Reason Start Date Expiration Date V isits Requested Visits Authorized [id number] Closed Specialty Service Requested 03/02/2018 03/02/2019 1 1 Encounter Details Date Type Department Care Team (Late st Contact Info) Description 03/01/2018 Orders [place] [address] Samantha Mayen MD [facility] [place] [address] Malignant neoplasm of right female [...] as of this encounter Results * NM [place] Node Injection Breast wo Imaging (03/17/2018 9:51 AM EDT) Anatomical Region Laterality Modality Nuclear Medicine Impressions 03/17/2018 1:18 PM EDT [place] node injections performed without complication. Narrative 03/17/2018 [...] patient left the department ingood condition. IMPRESSION [place] node injections performed without complication. Samantha Mayen MD [facility] [place] ORDERABLES documented in this encounter Visit Diagnoses Diagnosis Malignant neoplasm of right female breast, unspecified estrogen receptor status, unspecified site of breast Malignant neoplasm of right female breast, unspecified estrogen receptor status, unspecified site of breast documented in this encounter Care Teams Sanding Machine Tender Relationship Specialty Start Date End Date Poly Copeland MD [address] [facility] 1 [place] [address] PCP - General 09/15/10 documented as of this encounter
--- OUTSIDE RECORDS SUMMARY | 2024-09-14 12:46 | XMS_ITS | Encounter Summary ---
Author Organization [facility] [place] [address] Care Team Providers Care Telegraphic Typewriter Operator Chief Name Role Phone Poly Copeland MD Primary Care Provider Encounter Details Date Type Department Care Team (Late st Contact Info) Description 09/06/2018 Notes Only Hematology [place] [address] Mariano Manuel MD [facility] DR HEMATOLOGY/[place] [address] Social History Tobacco Use Types Packs/Day Years [...] on filedocumented in this encounter Care Teams Telegraphic Typewriter Operator Chief Relationship Specialty Start Date End Date Poly Copeland MD [address] [place] [address] PCP - General 09/15/10 documented as of this encounter
--- OUTSIDE RECORDS SUMMARY | 2024-09-14 12:46 | XMS_ITS | Encounter Summary ---
Author Organization [facility] Address [facility] [place] [address] Care Team Providers Care Cartridge Assembling Machine Adjuster Name Role Phone Poly Copeland MD Primary Care Provider [phone] Reason for Visit * Consultation (Routine) - Specialty Diagnoses / Procedures Referred By Contac t Referred To Contact Hematology and Oncology Diagnoses Breast cancer s/p r br mastec on 5.25 c/w PT and KMR Procedures [facility] Poly Copeland MD [address] [place] [address] Mariano Manuel MD [facility] DR HEMATOLOGY/[place] [address] Referral ID Status Reason Start Date Expiration Date V isits Requested Visits Authorized [id number] 04/05/2018 04/05/2019 1 1 Encounter Details Date Type Department Care Team (Late st Contact Info) Description 04/14/2018 12:00 PM EDT Office Visit Hematology/Oncology at [address] [phone] Mary Duque, SUPERVISOR FERTILIZER PROCESSING [address] [facility] [place] [address] Malignant neoplasm of right breast [...] this encounter Progress Notes * Mary Duque, SUPERVISOR FERTILIZER PROCESSING - 04/14/2018 12:00 PM EDT Subjective: Patient [...] review) - CONSULTATION CASE Outside slide(s) labeled [id number], collection date 01/23/2017. Ascending colon, cecum, terminal [...] mass. Biopsy revealed IDC which is strongly ER/WV+ and her2-. ??No otherlesions were noted in [...] and <= 200 cells): 0 Number of [place] Nodes Examined: 2 Pathologic Stage Classification (pTNM, AJCC 8th Edition) Primary Tumor (Invasive Carcinoma) (pT): pT1b Regional Lymph Nodes (pN) Modifier: (sn): Only sentinel node(s) evaluated. Category (pN): pN0 Tumor Block(s): A3 2016 AJCC 8th Edition CAP Annual Release ER, WV, and HER2 studies (performed on prior biopsy, [id number]): ER: Positive (>90%, strong) WV: Positive (>90%, strong) HER2 FISH: Negative 3. [...] Stage 1 6mm breast CA that was ER/WV+ and Rym2lwu. She had a second mastectomy which was uneventful and has healed well. Soc Hx: , lives alone in [place], [place] Tob - Quit 17 years ago Etoh - None [employer] Fam Hx: Father - at age 81, [...] with Dr. Del Toro. Mary Duque, MSN, WEIGHMASTER, AOCN Hematology/Oncology Nurse Practitioner [place], [place] [phone] documented in this encounter Plan of Treatment Not on file documented as of this encounter Visit Diagnoses Diagnosis Malignant neoplasm of right breast in female, estrogen receptor positive, unspecified site of breast Malignant neoplasm of ascending colon High risk medication use Encounter for long-term (current) use of other medications documented in this encounter Care Teams Cartridge Assembling Machine Adjuster Relationship Specialty Start Date End Date Poly Copeland MD [address] [place] [address] PCP - General 09/15/10 documented as of this encounter
--- OUTSIDE RECORDS SUMMARY | 2024-09-14 12:46 | XMS_ITS | Encounter Summary ---
Author Organization Formerly [facility] [place] [address] Care Team Providers Care Controls Project Engineer Name Role Phone Poly Copeland MD Primary Care Provider [phone] Encounter Details Date Type Department Care Team (Late st Contact Info) Description 03/17/2018 11:12 AM EDT - 03/17/2018 1:13 PM EDT Surgery Outpatient [place] [phone] Deandre Mayen MD [facility] [place] [address] MASTECTOMY, SIMPLE, COMPLETE (WRVU 15) Social History [...] closest emergency room or call the hospital bucket wash operator at [phone] and ask for physician operations support representative covering for your physician. Questions or problems after 5pm or on a weekend: Call the [facility] bucket wash operator at and ask for the physician operations support representative covering for your doctor. At 10:45 am [...] arm until the drain is removed Call [phone] with any questions steristrips will fall off [...] daily and record output Call clinic at [phone] for drain removal when output less than [...] instructions, VNA referral and H&P faxed to [facility]. I called and , [...] mass. Biopsy revealed IDC which is strongly ER/PA+ and her2-. No other lesions were noted in either breast. Naila denies breast masses, nipple discharge, adenopathy ?? SH: Has 3 sons, 5 grandchildren and 2 great-grandchildren. History of tobacco- quit 16 years ago. Angela setih. 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 ?? PMH HTN Colon cancer DCIS RAD [...] Mayen MD - 03/17/2018 1:22 PM EDT [facility] Operative Note Patient Name: Kelly Strickland : [id number] MR#: [id number] Case Date: 03/17/2018 Surgeon: Surgeon(s) and Role: [...] was irrigated, hemostased, and closed over a 19-Maldivian Pasquale drain. Steriledressings were applied. Infection Bundle [...] PM EDT 03/17/2018 12:17 PM EDT Narrative [facility] - 03/17/2018 12:17 PM EDT Specimen requisition ordered. ??Separate Pathology report to follow Deandre Mayen MD PATHOLOGY/CYTOLOGY ORDERABLES [facility] [place] [address] * Specimen to Pathology (03/17/2018 12:13 PM EDT) AP Specimen 03/17/2018 12:1 3 PM EDT 03/17/2018 12:13 PM EDT Narrative [facility] - 03/17/2018 12:13 PM EDT Specimen requisition ordered. ??Separate Pathology report to follow Deandre Mayen MD PATHOLOGY/CYTOLOGY ORDERABLES [facility] [place] [address] * Surgical Pathology Report (03/17/2018 12:12 PM EDT) Final Diagnosis ? Location: [facility] The signing pathologist has (i) examined the relevant preparation(s) for the specimen(s) and (ii) rendered or confirmed the diagnosis(es). . ? Addendum ADDENDUM DISCUSSION SPECIAL TEST PERFORMED: Test: ??Oncotype DX [facility] Case: ??, block A3 Performing Lab: ??[facility] Performing Lab Case: ??[id number] Reported by Lavon العلي MD Date reported: ??05/11/2018 For the full text of the [facility] report please refer to [facility] Pathology in the electronic health record (eDH). Electronically signed by: ??José Miguel MEDRANO, Fili Campbell Verified: ??05/17/2018 ?Pathologist Performed at: ??-[facility] Dept. of Pathology, [place], [place] ?Surgical Pathology DIAGNOSIS A - Right [...] ?? Invasive ductal carcinoma ? Histologic Grade (Roy Histologic Score) ?Glandular (Acinar) / Tubular Differentiation: [...] 200 cells): ? 0 ? Number of [place] Nodes Examined: ?2 Pathologic Stage Classification (pTNM, AJCC 8th Edition) ? Primary Tumor (Invasive Carcinoma) (pT): ?pT1b ? Regional Lymph Nodes (pN) ?Modifier: ??(sn): Only sentinel node(s) evaluated. ?Category (pN): ?? pN0 Tumor Block(s): ?? 2016 AJCC 8th Edition CAP Annual Release ER, PA, and HER2 studies (performed on prior biopsy, 14099): ER: Positive ( >90%, strong) PA: Positive ( >90%, strong) HER2 FISH: Negative Electronically signed by: ??Fili Valdez MD Verified: ??03/22/2018 ?Pathologist Performed at: ??-[facility] Dept. of Pathology, [facility], [place], [place] DISCUSSION The tumor measures at least 6 mm in the prior core biopsy, 33563. In this specimen, the greatest microscopic measurement [...] with yellow-white discoloration adjacent to the inserted [place] biopsy site marker. Consistency: Firm. Borders: Well [...] (black) margin; (5) adjacent inferior parenchyma; (6) Reroller Hand lower outer quadrant parenchyma; (7) Reroller Hand upper outer quadrant parenchyma; (8) footwear sales representative upper inner quadrant parenchyma; (9) Reroller Hand lower inner quadrant parenchyma. ?? (R9) Ischemic Time: 2 hours, 45 minutes B - ?? Labeled/Fixative: Right axillary sentinel lymph node, fresh. Quantity/Size: Two, 1.0 x 0.7 x 0.5 cm and 1.5 x 1.0 x 0.7 cm Tissue Description: Cortes-brown lymph nodes with surrounding adipose tissue Sections/Processin g: Both lymph nodes are serially sectioned and entirely submitted (T2) ??bradley 05/17/2018 4:49 PM EDT [facility] SENTINEL LYMPH NODE / Unknown 03/17/2018 12:12 PM EDT 03/17/2018 12:12 PM EDT SENTINEL LYMPH NODE / Unknown 03/17/2018 12:12 PM EDT 03/17/2018 12:12 PM EDT Deandre Mayen MD PATHOLOGY/CYTOLOGY ORDERABLES [facility] [place] [address] documented in this encounter Visit Diagnoses Not [...] CRNA) documented in this encounter Care Teams Controls Project Engineer Relationship Specialty Start Date End Date Poly Copeland MD [address] [place] [address] [address] [facility] 1 [place] [address] PCP - General 09/15/10 documented as of this encounter
--- OUTSIDE RECORDS SUMMARY | 2024-09-14 12:46 | XMS_ITS | Encounter Summary ---
Author Organization [facility] Address [facility] [place] [address] Care Team Providers Care Bottom Wheeler Name Role Phone Poly Copeland MD Primary Care Provider [phone] Reason for Visit * Consultation (Routine) - [...] Copeland MD [address] [place] [address] Samantha Mayen MD [facility] [place] [address] Referral ID Status Reason Start Date Expiration Date V isits Requested Visits Authorized [id number] 03/01/2018 03/01/2019 1 1 Encounter Details Date Type Department Care Team (Late st Contact Info) Description 03/01/2018 10:00 AM EDT Office Visit Hematology [place] [address] Samantha Mayen MD [facility] [place] [address] Giana Mitchell, RN Malignant neoplasm of upper-outer [...] mass. Biopsy revealed IDC which is strongly ER/[place]+ and her2-. No other lesions were noted [...] breast cancer (DCIS) [place] [facility] [place].I met with the patient and her son, JORGE, in clinic. SPECIFIC TEACHIN. Breast Cancer Treatment Handbook (Michelle Gupta, 2012) was received via mail. 2. Information from our Shared Decision-Marking Program on Early-Stage Breast Cancer was sent to her. 3. She understands she will meet with her medical oncologist (prefers Dr. Del Toro in [facility]) and possibly a radiation oncologist ([facility]) after surgery. 4. Contact phone number for questions or concerns in the immediate post- operative period. 5. Comprehensive Breast Program Binder. 6. Post Breast Surgery Exercises handout created by physical therapists at [facility]. 7. Breast Cancer Treatment Process care map provided and reviewed. 8. Things to Consider...What I Wish I Knew advice from breast cancer patients handout provided. 9. Contact information for the General Surgery Clinic Nurses was given and the Doctor field education coordinator system explained. She verbalized understanding of the [...] to Preciousambrosecarlos. Plan to refer her to [facility] once surgery date is known. Contact information for the General Surgery Clinic Nurses was given and the Doctor field education coordinator system explained. documented in this encounter Plan of Treatment Not on file documented as of this encounter Visit Diagnoses Diagnosis Malignant neoplasm of upper-outer quadrant of right breast in female, estrogen receptor positive documented in this encounter Care Teams Bottom Wheeler Relationship Specialty Start Date End Date Poly Copeland MD [address] [place] [address] 1 [place] [address] PCP - General 09/15/10 documented as of this encounter
--- OUTSIDE RECORDS SUMMARY | 2024-09-14 12:46 | XMS_ITS | Encounter Summary ---
Author Organization Formerly [facility] [place] [address] Care Team Providers Care Front Desk Manager Name Role Phone Poly Copeland MD Primary Care Provider [phone] Reason for Visit * Consultation (Routine) - Closed Specialty Diagnoses / Procedures Referred By Contgail t Referred To Contact Hematology and Oncology Diagnoses Abnormal findings on imaging test Poly Copeland MD [address] [place] [address] [facility] [address] [place] [address] Referral ID Status Reason Start Date Expiration Date Visits Re quested Visits Authorized [id number] Closed 01/25/2018 01/25/2019 1 1 Encounter Details Date Type Department Care Team (Late st Contact Info) Description 01/30/2018 1:32 PM EDT - 01/30/2018 2:25 PM EDT Hospital [place] [address] Dulce Zavala MD [facility] [place] [address] Abnormal mammogram Discharge Disposition: Home [...] unspecified documented in this encounter Care Teams Front Desk Manager Relationship Specialty Start Date End Date Poly Copeland MD [address] [place] [address] PCP - General 09/15/10 documented as of this encounter
--- OUTSIDE RECORDS SUMMARY | 2024-09-14 12:46 | XMS_ITS | Encounter Summary ---
Author Organization [facility] Address [facility] [place] [address] Care Team Providers Care Retail Account Executive Name Role Phone Poly Copeland MD Primary Care Provider [phone] Encounter Details Date Type Department Care Team (Late st Contact Info) Description 11/10/2018 11:30 AM EST Office Visit Hematology/Oncology at [address] [address] Raffi Del Toro MD [facility] [place] [address] Malignant neoplasm of ascending colon; Breast cancer, [...] Notes * Raffi Del Troo MD - 11/10/2018 11:30 AM EST Subjective: Patient ID: Kelly Strickland is a 78 y.o. female. Problem List: 1. Cancer of the right breast, pT1b, N0, Int grade, ER/FL +, Her-2/odilon negative A. Right breast mammogram 01/25/18 ([facility] review) - IMPRESSION/recommendation: Right breast lesion 1 BI-RADS Category 0: Assessment incomplete. ??0.6 cm mass 10:00 position 11 cmfrom the nipple. Recommend second look ultrasound to determine if this will get up graded to category 4 and require biopsy Mammogram at [facility] 01/30/18 - IMPRESSION: Highly suspicious 0.7 cm [...] cancer cells with immunostaining) Stain intensity: Strong FL immunoreactivity: Positive ( ??>90% cancer cells with [...] and ??<= 200 cells): 0 ?Number of [place] Nodes Examined: ?2 Pathologic Stage Classification (pTNM, [...] review) - CONSULTATION CASE Outside slide(s) labeled [id number], collection date 01/23/2017. Ascending colon, cecum, terminal [...] fracture. 10. Genetic testing 08/2018 - Result: [facility] Common Hereditary Cancers Panel showed no mutation was detected. ??This means that Kelly does not carry a mutation in the genes detectable by this test. ??The following genes were evaluated for sequence changes and exonic deletions/duplications: APC, PALLAVI, AXIN2, BARD1, BMPR1A, BRCA1, BRCA2, BRIP1, CDH1, CDK4, CDKN2A (p14ARF), CDKN2A (o42QNX9e), CHEK2, CTNNA1, DICER1, EPCAM (EPCAM: Deletion/duplication testing only ([id number]), GREM1 (GREM1: Promoter region deletion/duplication testing only.), KIT, MEN1, MLH1, MSH2, MSH3, MSH6, MUTYH, NBN, NF1, PALB2, PDGFRA, PMS2, POLD1, POLE, PTEN, RAD50, RAD51C, RAD51D, SDHB, SDHC, SDHD, SMAD4, SMARCA4, STK11, TP53, TSC1, TSC2, VHL. ??The following genes were evaluated for sequence changes only: HOXB13 (c.251G>A, p.Edf11Voc variant only), NTHL1 (NTHL1: Deletion/duplication analysis is [...] day. Soc Hx: , lives alone in [place], [place] Tob - Quit 17 years ago Etoh - None Works [employer] Fam Hx: Father - at age 81, [...] the right breast, T1b, N0, int grade, ER/FL strongly positive, Her- 2/odilon negative: Shehad a right breast mammogram (s/p prior left mastectomy for DCIS) done in early 02/08 which showed a0.6 cm mass at 10:00 in the right breast. Biopsy showed invasive ductal carcinoma wth lobular features, int grade, ER/FL positive and Her-2/odilon negative. ??On 03/17/18 she [...] right documented in this encounter Care Teams Retail Account Executive Relationship Specialty Start Date End Date Poly Copeland MD [address] [place] [address] PCP - General 09/15/10 documented as of this encounter
--- OUTSIDE RECORDS SUMMARY | 2024-09-14 12:46 | XMS_ITS | Encounter Summary ---
Author Organization [facility] [place] [address] Care Team Providers Care Cardiology Consultant Name Role Phone Poly Copeland MD Primary Care Provider [phone] Encounter Details Date Type Department Care Team (Late st Contact Info) Description 03/17/2018 11:23 AM EDT Anesthesia Event [place] [phone] Chidi Butterfield MD [facility] [place] [address] Theo Cobb MD [facility] [place] [address] Anesthesia Record Procedure Summary Procedure Name Responsible Anesthesiologist Anesthesia Start Time Anesthesia Stop Time MASTECTOMY, SIMPLE, COMPLETE (WRVU 15) (Right: Breast) Chidi Butterfield MD 03/17/18 1123 03/17/18 1330 Events Date Time Event Comment 03/17/2018 1123 AN Verify 1123 Start 1123 An Start Data 1132 An Induction 1132 An Intubation 1140 Anesthesia Ready 1151 Skin Incision 1152 Break/Relief In Zuleyma M Heliam tt, PRESS SET UP PERSON 1220 Break/Relief Out 1320 Extubation/LMA Out 1322 [...] upper quadrant; collapsible closed device (pigtail; #10 Kittitian); Dr. Durbin 02/03/17 1325 by Juanita Gonzalez, RN (RETIRED) Implanted Port - Single Lumen (non-apheresis) 03/15/17; 1200; infraclavicular fossa, left; power injectable port; superior vena cava; Maddy Gardiner MD at [facility] 03/15/17 1200 by Mary Granda, RN Drain/Device Site 03/17/18; 1235; Righ t; breast; collapsible closed device (19 ne[address] Dr. Tello 03/17/18 1235 by Makayla [...] Velez CRNA 03/17/18 1320 by Kait Velez, PRESS SET UP PERSON Incision 03/17/18; 1150; mos[facility] st; 06/21/22 (LDA [...] Butterfield MD - 03/17/2018 2:57 PM EDT [facility] Department of Anesthesiology Post-procedure Note Patient: Kelly Strickland Procedure Summary Date Anesthesia Start Anesthesia Stop Room / Location 03/17/18 1123 1330 [facility] OR / [facility] Procedure Diagnosis Surgeon Responsible Provider MASTECTOMY, SIMPLE, COMPLETE (WRVU 15.85) (Right Breast); BIOPSY OR EXCISION OF LYMPH NODE(S), OPEN, DEEP AXILLARY NODE(S) (WRVU 6.43) (Right Axilla); INTRAOPERATIVE ID (MAPPING) SENTINEL LYMPH NODE,INCLUDES INJECTION (WRVU 2.5) (Right Axilla); MODIFIER SENTINEL NODE EXCISION (Right Axilla) (RIGHT BREAST CANCER) Samantha Mayen MD Nguyen, Tung T, MD All Anesthesia Providers: Anesthesiologist: Chidi Butterfield MD PRESS SET UP PERSON: Kait Velez CRNA Most Recent Vitals: 03/17/18 1430 BP: Pulse: 65 Resp: Temp: SpO2: 94% Pain 3 (03/17/18 1430) Patient Location: PACU/MERGED WITH [facility] Level of Consciousness: Awake and Alert [...] Length: 10 cm Gauge: 21 Needle Type: T-mapdk-jylzx Medication injection made incrementally with aspirations. Nerve [...] Length: 10 cm Gauge: 21 Needle Type: I-vmbag-uaagz Medication injection made incrementally with aspirations. Nerve [...] mL/hr documented in this encounter Care Teams Cardiology Consultant Relationship Specialty Start Date End Date Poly Copeland MD [address] [place], [place] [address]Y [facility] 1 [place] [address] PCP - General 09/15/10 documented as of this encounter
--- OUTSIDE RECORDS SUMMARY | 2024-09-14 12:46 | XMS_ITS | Encounter Summary ---
Author Organization [facility] Address [facility] [place] [address] Care Team Providers Care Commodity Supervisor Name Role Phone Poly Copeland MD Primary Care Provider [phone] Encounter Details Date Type Department Care Team (Latest Contact Info) Description 01/30/2018 2:26 PM EDT Hospital [place] [phone] Anabell Muñoz MD [facility] [place] [address] Abnormal mammogram Discharge Disposition: Home Social History [...] obtained using a 14-gauge automated device. A Flyr Polina 14G marker clip was placed. The [...] unspecified documented in this encounter Care Teams Commodity Supervisor Relationship Specialty Start Date End Date Poly Copeland MD [address] [place] [address] PCP - General 09/15/10 documented as of this encounter
--- OUTSIDE RECORDS SUMMARY | 2024-09-14 12:46 | XMS_ITS | Encounter Summary ---
Author Organization [facility] [place] [address] Care Team Providers Care Cosmetic Manager Name Role Phone Poly Copeland MD Primary Care Provider [phone] Encounter Details Date Type Department Care Team (Late st Contact Info) Description 09/18/2018 Telephone Hematology [place] [address] Britt Hoover [facility] HEMATOLOGY/[place] [address] Social History Tobacco Use Types Packs/Day Years Used Date Smoking Tobacco: Former Smokeless Tobacco: Never Comments:quite 17 years ago Sex and Gender Information Value Date Recorded Sex Assigned at Not on file Gender Identity Female 10/25/2020 5:11 AM EST Sexual Orientation Not on file documented as of this encounter Miscellaneous Notes * Telephone Encounter - Britt Hoover [facility] - 09/18/2018 4:15 PM EST This test result was discussed with the patient by phone. A copy of a letter sent to the patient containing these results is provided below. Please be advised that [place] law requires that allhealth care workers respect the confidentiality of this information and not pass it along to other health care providers, insurance companies, or individuals without the written permission of the patient. The Familial Cancer Program welcomes any questions about these matters. Our phone number is: [phone]. On September 06, 2018, Kelly underwent genetic [...] BRCA2, BRIP1, CDH1, CDK4, CDKN2A (p14ARF), CDKN2A (d28VVB1o), CHEK2, CTNNA1, DICER1, EPCAM (EPCAM: Deletion/duplication testing only ([id number]), GREM1 (GREM1: Promoter region deletion/duplication testing only.), KIT, MEN1, MLH1, MSH2, MSH3, MSH6, MUTYH, NBN, NF1, PALB2, PDGFRA, PMS2, POLD1, POLE, PTEN, RAD50, RAD51C, RAD51D, SDHB, SDHC, SDHD, SMAD4, SMARCA4, STK11, TP53, TSC1, TSC2, VHL. The following genes were evaluated for sequence changes only: HOXB13 (c.251G>A, p.Pzc86Eoj variant only), NTHL1 (NTHL1: Deletion/duplication analysis is [...] on filedocumented in this encounter Care Teams Cosmetic Manager Relationship Specialty Start Date End Date Poly Copeland MD [address] [place] [address] PCP - General 09/15/10 documented as of this encounter
--- OUTSIDE RECORDS SUMMARY | 2024-09-14 12:46 | XMS_ITS | Encounter Summary ---
Author Organization [facility] [place] [address] Care Team Providers Care Skein Bleacher Name Role Phone Poly Coepland MD Primary Care Provider [phone] Reason for Visit * Reason Onset Date Comments Letter/Form 05/05/2018 Request for ONc DX-type testing Encounter Details Date Type Department Care Team (Late st Contact Info) Description 05/05/2018 Telephone Hematology/Oncology at [address] [address] Mary Granda RN Letter/Form (Request [...] on filedocumented in this encounter Care Teams Skein Bleacher Relationship Specialty Start Date End Date Poly Copeland MD [address] [place] [address] PCP - General 09/15/10 documented as of this encounter
--- OUTSIDE RECORDS SUMMARY | 2024-09-14 12:46 | XMS_ITS | Encounter Summary ---
Author Organization [facility] Address [facility] [place] [address] Care Team Providers Care Patient Service Rep Name Role Phone Poly Copeland MD Primary Care Provider [phone] Encounter Details Date Type Department Care Team (Late st Contact Info) Description 02/03/2018 Notes [place] [phone] Sheryl Au MSW Social History Tobacco Use Types Packs/Day Years Used Date Smoking Tobacco: Former Smokeless Tobacco: Never Comments:quite 17 years ago Sex and Gender Information Value Date Recorded Sex Assigned at Not on file Gender Identity Female 10/25/2020 5:11 AM EST Sexual Orientation Not on file documented as of this encounter Progress Notes * Sheryl Au MSW - 02/03/2018 12:11 PM EDT [facility] contacted pt after Dr. Galvan informed her that her breast biopsy results indicated she has right breast, IDC/DCIS. Pt recently completed treatment for colon cancer at [facility] and has a history of left breast [...] to contact me withany additional concerns. P- [facility] will continue to assess and address pt's psychosocial needs. documented in this encounter Plan of Treatment Not on file documented as of this encounter Visit Diagnoses Not on filedocumented in this encounter Care Teams Patient Service Rep Relationship Specialty Start Date End Date Poly Copeland MD [address] [place] [address] PK[address] [facility] 1 [place] [address] PCP - General 09/15/10 documented as of this encounter
--- OUTSIDE RECORDS SUMMARY | 2024-09-14 12:46 | XMS_ITS | Encounter Summary ---
Author Organization [facility] [place] [address] Care Team Providers Care Clinic Lpn Name Role Phone Poly Copeland MD Primary Care Provider [phone] Reason for Referral * Home Health Care (Routine) - Specialty Diagnoses / Procedures Referred By Contac t Referred To Contact Home Health Agency Diagnoses Malignant neoplasm of right breast in female, estrogen receptor positive, unspecified site of breast Samantha Mayen MD [facility] [place] [address] Referral ID Status Reason Start Date Expiration Date V isits Requested Visits Authorized [id number] Continuity of Care 03/13/2018 09/09/2018 1 1 Encounter Details Date Type Department Care Team (Late st Contact Info) Description 03/13/2018 Orders [place] [address] Samantha Mayen MD [facility] [place] [address] Malignant neoplasm of right breast in female, [...] breast documented in this encounter Care Teams Clinic Lpn Relationship Specialty Start Date End Date Poly Copeland MD [address] [facility] 1 [place] [address] PCP - General 09/15/10 documented as of this encounter
--- OUTSIDE RECORDS SUMMARY | 2024-09-14 12:46 | XMS_ITS | Encounter Summary ---
Author Organization [facility] [place] [address] Care Team Providers Care Line Controller Name Role Phone Poly Copeland MD Primary Care Provider [phone] Encounter Details Date Type Department Care Team (Late st Contact Info) Description 03/16/2018 Notes Only Hematology [place] [phone] Giana Mitchell RN Social History Tobacco Use [...] PM EDT Face to Face faxed to [facility] in [facility], per their request,in advance of 03/17 mastectomy and SLNB. documented in this encounter Plan of Treatment Not on file documented as of this encounter Visit Diagnoses Not on filedocumented in this encounter Care Teams Line Controller Relationship Specialty Start Date End Date Poly Copeland MD [address] [place], [place] [address] PCP - General 09/15/10 documented as of this encounter
--- OUTSIDE RECORDS SUMMARY | 2024-09-14 12:46 | XMS_ITS | Encounter Summary ---
Author Organization [facility] Address [facility] [place] [address] Care Team Providers Care Production Designer Name Role Phone Poly Copeland MD Primary Care Provider [phone] Encounter Details Date Type Department Care Team (Late st Contact Info) Description 05/05/2018 10:30 AM EDT Office Visit Hematology/Oncology at [address] [address] Raffi Del Toro MD [facility] [place] [address] Malignant neoplasm of right breast in female, [...] Notes * Raffi Del Toro MD - 05/05/2018 10:30 AM EDT Subjective: Patient ID: Kelly Strickland is a 78 y.o. female. Problem List: 1. Cancer of the right breast, pT1b, N0, Int grade, ER/WY +, Her-2/odilon negative A. Right breast mammogram 01/25/18 ([facility] review) - IMPRESSION/recommendation: Right breast lesion 1 BI-RADS Category 0: Assessment incomplete. 0.6 cm mass 10:00 position 11 cm from the nipple. Recommend second look ultrasound to determine if this will get up graded to category4 and require biopsy Mammogram at [facility] 01/30/18 - IMPRESSION: Highly suspicious [...] cancer cells with immunostaining) Stain intensity: Strong WY immunoreactivity: Positive ( ??>90% cancer cells with [...] Type: ?? Invasive ductal carcinoma ?Histologic Grade (Okarche Histologic Score) ? Glandular (Acinar) / Tubular [...] and ??<= 200 cells): 0 ?Number of [place] Nodes Examined: ?2 Pathologic Stage Classification (pTNM, [...] process. B. 01/23/17 - Right hemicolectomy Path ([facility] review) - CONSULTATION CASE Outside slide(s) labeled [id number], collection date 01/23/2017. Ascending colon, cecum, terminal [...] summer. Soc Hx: , lives alone in [place], [place] Tob - Quit 17 years ago Etoh - None Works [employer] Fam Hx: Father - at age 81, [...] the right breast, T1b, N0, int grade, ER/WY strongly positive, Her- 2/odilon negative: Shehas a right breast mammogram (s/p prior left mastectomy for DCIS) done in early 02/08 which showed a0.6 cm mass at 10:00 in the right breast. Biopsy showed invasive ductal carcinoma wth lobular features, int grade, ER/WY positive and Her-2/odilon negative. On 03/17/18 she [...] colon documented in this encounter Care Teams Production Designer Relationship Specialty Start Date End Date Poly Copeland MD [address] [place] [address] PCP - General 09/15/10 documented as of this encounter
--- OUTSIDE RECORDS SUMMARY | 2024-09-14 12:46 | XMS_ITS | Encounter Summary ---
Author Organization [facility] Address [facility] [place] [address] Care Team Providers Care Auger Mill Operator Name Role Phone Poly Copeland MD Primary Care Provider [phone] Encounter Details Date Type Department Care Team (Late st Contact Info) Description 05/12/2018 External [place] [phone] Provider, Scanning Social History Tobacco Use Types [...] on filedocumented in this encounter Care Teams Auger Mill Operator Relationship Specialty Start Date End Date Poly Copeland MD [address] [place] [address] PCP - General 09/15/10 documented as of this encounter
--- OUTSIDE RECORDS SUMMARY | 2024-09-14 12:47 | XMS_ITS | Encounter Summary ---
Author Organization [facility] Address [facility] [place] [address] Care Team Providers Care Title 1 Tutor Name Role Phone Poly Copeland MD Primary Care Provider [phone] Reason for Visit * Reason Comments Chemotherapy Cycle 7 Day 1 Folfox * Treatment/Therapy Plan Authorization (Routine) - Closed Specialty Diagnoses / Procedures Referred By Contac t Referred To Contact Diagnoses Malignant neoplasm of ascending colon Raffi Del Toro MD [facility] [place] [address] Referral ID Status Reason Start Date Expiration Date Visits Re quested Visits Authorized [id number] Closed 03/04/2017 03/04/2018 1 1 Encounter Details Date Type Department Care Team (Late st Contact Info) Description 07/13/2017 10:00 AM EDT Infusion Hematology Oncology at [address] [address] Malignant neoplasm of ascending colon [...] 5FU infusion via CADD pump provided by [employer] FRANSISCA Mendoza offers no complaints. OBJECTIVE LAB DATA: WBC 4.34 Hgb11.1,Hct 35.4, ANC 1.83, plt 193 K 4.2 Creatinine 1.12 Pre administration: Chemotherapy orders independently verified for drug name, route, and dosage per patient's height, weight and BSA by Binh [facility] At time of administration Patient identity verified using patient's name and date of at the chair/bedside by double RN check just prior to initiating the patient's home infusion chemotherapy via CADD pump provided by [employer]. Fluorouracil 3,762 mg over 46 hours, IV [...] mL/hr documented in this encounter Care Teams Title 1 Tutor Relationship Specialty Start Date End Date Poly Copeland MD [address] [facility] [facility] [place] [address] PCP - General 09/15/10 documented as of this encounter
--- OUTSIDE RECORDS SUMMARY | 2024-09-14 12:47 | XMS_ITS | Encounter Summary ---
Author Organization [facility] [place] [address] Care Team Providers Care Hoop Flaring Machine Operator Name Role Phone Poly Copeland MD Primary Care Provider [phone] Encounter Details Date Type Department Care Team (Latest Contact Info) Description 05/27/2017 9:00 AM EDT Clinical Support Hematology/Oncology at [address] [address] [facility] [place] [address] Dietary counseling Social History Tobacco Use Types Packs/Day Years Used Date Smoking Tobacco: Former Smokeless Tobacco: Never Comments:quite 17 years ago Sex and Gender Information Value Date Recorded Sex Assigned at Not on file Gender Identity Female 10/25/2020 5:11 AM EST Sexual Orientation Not on file documented as of this encounter Progress Notes * Lorraine Tan RD - 05/27/2017 9:00 AM EDT [facility] Initial Dietitian Assessment Seen By: Deisi Tan, MS, RD, AUDIO VISUAL DIRECTOR, LD Referred by: Mary Duque APRN Reason [...] ?? B. 01/23/17 - Right hemicolectomy Path ([facility] [place]) - CONSULTATION CASE Outside slide(s) labeled [id number], collection date 01/23/2017. Ascending colon, cecum, terminal [...] counseling documented in this encounter Care Teams Hoop Flaring Machine Operator Relationship Specialty Start Date End Date Poly Copeland MD [address] [place] [address] [address] [facility] 1 [place] [address] PCP - General 09/15/10 documented as of this encounter
--- OUTSIDE RECORDS SUMMARY | 2024-09-14 12:47 | XMS_ITS | Encounter Summary ---
Author Organization [facility] Address [facility] [place] [address] Care Team Providers Care Teaching Assistant Name Role Phone Poly Copeland MD Primary Care Provider [phone] Reason for Visit * Reason Comments IV Access pump disconnect * Treatment/Therapy Plan Authorization (Routine) - Closed Specialty Diagnoses / Procedures Referred By Contac t Referred To Contact Diagnoses Malignant neoplasm of ascending colon Raffi Del Toro MD [facility] [place] [address] Referral ID Status Reason Start Date Expiration Date Visits Re quested Visits Authorized [id number] Closed 03/04/2017 03/04/2018 1 1 Encounter Details Date Type Department Care Team (Late st Contact Info) Description 06/03/2017 3:30 PM EDT Infusion Hematology Oncology at [address] [address] Malignant neoplasm of ascending colon [...] treatment well. Port flushed with 20cc NS [id number] units Heparin then de-accessed. PLAN Return to [...] Job Aid: Adult Flushing & Catheter Care (5539) job aid for additional information regarding guidelines [...] Job Aid: Adult Flushing & Catheter Care (2496) job aid for additional information regarding guidelines and administration., Routine Given 06/03/2017 11:15 AM EDT 20 mLs documented in this encounter Care Teams Teaching Assistant Relationship Specialty Start Date End Date Poly Copeland MD [address] [place] [address] PCP - General 09/15/10 documented as of this encounter
--- OUTSIDE RECORDS SUMMARY | 2024-09-14 12:47 | XMS_ITS | Encounter Summary ---
Author Organization [facility] [place] [address] Care Team Providers Care Educational Aide Name Role Phone Poly Copeland MD Primary Care Provider [phone] Reason for Visit * Reason Onset Date Comments Labs Only 12/30/2017 Encounter Details Date Type Department Care Team (Late st Contact Info) Description 12/30/2017 Telephone Hematology/Oncology at [address] [address] Ruth Mcdonald, RN Labs Only [...] on filedocumented in this encounter Care Teams Educational Aide Relationship Specialty Start Date End Date Poly Copeland MD [address] [place] [address] PCP - General 09/15/10 documented as of this encounter
--- OUTSIDE RECORDS SUMMARY | 2024-09-14 12:47 | XMS_ITS | Encounter Summary ---
Author Organization [facility] Address [facility] [place] [address] Care Team Providers Care Barrel Rifler Name Role Phone Poly Copeland MD Primary Care Provider [phone] Encounter Details Date Type Department Care Team (Latest Contact Info) Description 01/24/2018 - 01/24/2018 12:04 AM EDT Hospital Encounter Radiology Library at [facility] [place] [address] Tucker Calle MD [facility] [place] [address] Discharge Disposition: Home Social History Tobacco Use [...] US Breast (01/24/2018 12:00 AM EDT) Narrative [facility] - 01/25/2018 9:41 AM EDT This exam is for storage only and is auto-finalizing. Tucker Calle MD IMG FILM LIBRARY ORD ERABLES [place], [place] documented in this encounter Visit Diagnoses Not on filedocumented in this encounter Care Teams Barrel Rifler Relationship Specialty Start Date End Date Poly Copeland MD [address] [place] [address] PCP - General 09/15/10 documented as of this encounter
--- OUTSIDE RECORDS SUMMARY | 2024-09-14 12:47 | XMS_ITS | Encounter Summary ---
Author Organization [facility] [place] [address] Care Team Providers Care Beer Coil Cleaner Name Role Phone Poly Copeland MD Primary Care Provider [phone] Encounter Details Date Type Department Care Team (Late st Contact Info) Description 09/30/2017 Orders Only Hematology [place] [phone] Raffi Del Toro MD [facility] [place] [address] Social History Tobacco Use Types Packs/Day Years [...] on filedocumented in this encounter Care Teams Beer Coil Cleaner Relationship Specialty Start Date End Date Poly Copeland MD [address] [place] [address] PCP - General 09/15/10 documented as of this encounter
--- OUTSIDE RECORDS SUMMARY | 2024-09-14 12:47 | XMS_ITS | Encounter Summary ---
Author Organization [facility] Address [facility] [place] [address] Care Team Providers Care Manager Metrology Name Role Phone Poly Copeland MD Primary Care Provider [phone] Encounter Details Date Type Department Care Team (Late st Contact Info) Description 05/13/2017 10:00 AM EDT Office Visit Hematology/Oncology at [address] [phone] Raffi Del Toro MD [facility] [place] [address] Malignant neoplasm of ascending colon Social History [...] B. 01/23/17 - Right hemicolectomy Path ([facility] [place]) - CONSULTATION CASE Outside slide(s) labeled [id number], collection date 01/23/2017. Ascending colon, cecum, terminal [...] changes. 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
--- OUTSIDE RECORDS SUMMARY | 2024-09-14 12:47 | XMS_ITS | Encounter Summary ---
Author Organization [facility] [place] [address] Care Team Providers Care Cell Support Operator Name Role Phone Poly Copeland MD Primary Care Provider [phone] Encounter Details Date Type Department Care Team (Late st Contact Info) Description 08/04/2017 3:00 PM EDT Office Visit Hematology/Oncology at [address] [phone] Mary Duque, ASSOCIATE DIRECTOR QA [address] [facility] [place] [address] Malignant neoplasm of ascending colon Social History [...] this encounter Progress Notes * Mary Duque, ASSOCIATE DIRECTOR QA - 08/04/2017 3:45 PM EDT Subjective: Patient [...] 01/23/17 - Right hemicolectomy Path ([facility] [place] - CONSULTATION CASE Outside slide(s) labeled [id number], collection date 01/23/2017. Ascending colon, cecum, terminal [...] her. Soc Hx: , lives alone in [place], [place] Tob - Quit 17 years ago Etoh - None Works [employer] Fam Hx: Father - at age 81, [...] again in two weeks. Mary Duque, MSN, DIRECTOR MOTION PICTURE, AOCN Hematology/Oncology Nurse Practitioner [place], [place] [phone] documented in this encounter Plan of Treatment [...] colon documented in this encounter Care Teams Cell Support Operator Relationship Specialty Start Date End Date Poly Copeland MD [address] [place] [address] [facility] 1 [place] [address] PCP - General 09/15/10 documented as of this encounter
--- OUTSIDE RECORDS SUMMARY | 2024-09-14 12:47 | XMS_ITS | Encounter Summary ---
Author Organization [facility] [place] [address] Care Team Providers Care Domestic Maid Name Role Phone Poly Copeland MD Primary Care Provider [phone] Encounter Details Date Type Department Care Team (Late st Contact Info) Description 05/03/2017 Telephone Hematology [place] [phone] Mary Duque APRN [address] [place] [address] [place] [address] Social History Tobacco Use Types Packs/Day Years Used Date Smoking Tobacco: Former Smokeless Tobacco: Never Sex and Gender Information Value Date Recorded Sex Assigned at Not on file Gender Identity Female 10/25/2020 5:11 AM EST Sexual Orientation Not on file documented as of this encounter Miscellaneous Notes * Telephone Encounter - Mary Duque APRN - 05/03/2017 10:13 AM EDT I called pt to [facility] on 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 They found no explanation for her headache which currently persists. She is scheduled to see neuro-onc next Tuesday so I will plan to move our [facility] appt for this week to the following week to allow neuro-onc to weigh-in as to whether her h/a isor isn't related to oxaliplatin. Kelly is agreeable with the plan. Mary Duque, MSN, SCRUB WOMAN, AOCN Hematology/Oncology Nurse Practitioner [place], [place] [phone] documented in this encounter Plan of Treatment Not on file documented as of this encounter Visit Diagnoses Not on filedocumented in this encounter Care Teams Domestic Maid Relationship Specialty Start Date End Date Poly Copeland MD [address] [place] [address] PCP - General 09/15/10 documented as of this encounter
--- OUTSIDE RECORDS SUMMARY | 2024-09-14 12:47 | XMS_ITS | Encounter Summary ---
Author Organization [facility] Address [facility] [place] [address] Care Team Providers Care Transfer Engineer Name Role Phone Poly Copeland MD Primary Care Provider [phone] Encounter Details Date Type Department Care Team (Late st Contact Info) Description 07/22/2017 1:30 PM EDT Office Visit Hematology/Oncology at [address] [phone] Raffi Del Toro MD [facility] [place] [address] Malignant neoplasm of ascending colon Social History [...] B. 01/23/17 - Right hemicolectomy Path ([facility] review) - CONSULTATION CASE Outside slide(s) labeled [id number], collection date 01/23/2017. Ascending colon, cecum, terminal [...] infection. Soc Hx: , lives alone in [place], [place] Tob - Quit 17 years ago Etoh - None Works [employer] Fam Hx: Father - at age 81, [...] colon documented in this encounter Care Teams Transfer Engineer Relationship Specialty Start Date End Date Poly Copeland MD [address] [place] [address] PCP - General 09/15/10 documented as of this encounter
--- OUTSIDE RECORDS SUMMARY | 2024-09-14 12:47 | XMS_ITS | Encounter Summary ---
Author Organization [facility] Address [facility] [place] [address] Care Team Providers Care Manganese Wheeler Name Role Phone Poly Copeland MD Primary Care Provider [phone] Encounter Details Date Type Department Care Team (Late st Contact Info) Description 07/08/2017 11:30 AM EDT Office Visit Hematology/Oncology at [address] [phone] Raffi Del Toro MD [facility] [place] [address] Malignant neoplasm of ascending colon Social History [...] process. B. 01/23/17 - Right hemicolectomy Path ([facility] review) - CONSULTATION CASE Outside slide(s) labeled [id number], collection date 01/23/2017. Ascending colon, cecum, terminal [...] feet. 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
--- OUTSIDE RECORDS SUMMARY | 2024-09-14 12:47 | XMS_ITS | Encounter Summary ---
Author Organization [facility] Address [facility] [place] [address] Care Team Providers Care Energy Efficiency Engineer Name Role Phone Poly Copeland MD Primary Care Provider [phone] Encounter Details Date Type Department Care Team (Latest Contact Info) Description 04/28/2017 - 04/28/2017 11:59 PM EDT Hospital Encounter Radiology Library at [facility] [place] [address] Raffi Del Toro MD [facility] [place] [address] Pain Discharge Disposition: Home Social History Tobacco [...] MR Head (04/28/2017 12:00 AM EDT) Narrative [facility] - 04/28/2017 8:53 PM EDT This exam is for storage only and is auto-finalizing. Raffi Del Toro MD IMG FILM LIBRARY ORD ERABLES Performing Organization Address City/State/[facility] Co de Phone Number [place], [place] documented in this encounter Visit Diagnoses Diagnosis Pain Generalized pain documented in this encounter Care Teams Energy Efficiency Engineer Relationship Specialty Start Date End Date Poly Copeland MD [address] [facility] [address] [address] [place] [address] PCP - General 09/15/10 documented as of this encounter
--- OUTSIDE RECORDS SUMMARY | 2024-09-14 12:47 | XMS_ITS | Encounter Summary ---
Author Organization [facility] Address [facility] [place] [address] Care Team Providers Care Information Architect Name Role Phone Poly Copeland MD Primary Care Provider [phone] Reason for Visit * Reason Comments IV Access 5FU pump disconnect * Treatment/Therapy Plan Authorization (Routine) - Closed Specialty Diagnoses / Procedures Referred By Contac t Referred To Contact Diagnoses Malignant neoplasm of ascending colon Raffi Del Toro MD [facility] [place] [address] Referral ID Status Reason Start Date Expiration Date Visits Re quested Visits Authorized [id number] Closed 03/04/2017 03/04/2018 1 1 Encounter Details Date Type Department Care Team (Late st Contact Info) Description 05/18/2017 12:30 PM EDT Infusion Hematology Oncology at [address] [phone] Malignant neoplasm of ascending colon Social History Tobacco Use Types Packs/Day Years Used Date Smoking Tobacco: Former Smokeless Tobacco: Never Comments:quite 17 years ago Sex and Gender Information Value Date Recorded Sex Assigned at Not on file Gender Identity Female 10/25/2020 5:11 AM EST Sexual Orientation Not on file documented as of this encounter Progress Notes * Naila Ayala RN - 05/18/2017 12:30 PM EDT INFUSION THERAPY ADMINISTRATION NOTES DIAGNOSIS: colon cancer REASON FOR VISIT: Discontinue 5FU home infusion and deaccess mediport SUBJECTIVE Kelly Strickland denies any complaints OBJECTIVE REACTIONS (DESCRIPTION, TIME, INTERVENTION AND EFFECTIVENESS) none ASSESSMENT Kelly Strickland was awake, alert and she tolerated treatment well. Port flushed with 20cc NS [id number] units Heparin then de-accessed. PLAN Return to [...] Job Aid: Adult Flushing & Catheter Care (7597) job aid for additional information regarding guidelines [...] Job Aid: Adult Flushing & Catheter Care (1169) job aid for additional information regarding guidelines and administration., Routine Given 05/18/2017 11:07 AM EDT 20 mLs documented in this encounter Care Teams Information Architect Relationship Specialty Start Date End Date Poly Copeland MD [address] [facility] [facility] [facility] [place] [address] PCP - General 09/15/10 documented as of this encounter
--- OUTSIDE RECORDS SUMMARY | 2024-09-14 12:47 | XMS_ITS | Encounter Summary ---
Author Organization [facility] [place] [address] Care Team Providers Care Assembly Line Robot Operator Name Role Phone Poly Copeland MD Primary Care Provider [phone] Reason for Visit * Reason Comments Chemotherapy CADD pump disconnect and port flush Encounter Details Date Type Department Care Team (Late st Contact Info) Description 07/15/2017 2:00 PM EDT Infusion Hematology Oncology at [address] [phone] Malignant neoplasm of ascending colon [...] colon documented in this encounter Care Teams Assembly Line Robot Operator Relationship Specialty Start Date End Date Poly Copeland MD [address] [facility] [address] [facility] [place] [address] PCP - General 09/15/10 documented as of this encounter
--- OUTSIDE RECORDS SUMMARY | 2024-09-14 12:47 | XMS_ITS | Encounter Summary ---
Author Organization Formerly [facility] [place] [address] Care Team Providers Care Social Services Manager Name Role Phone Poly Copeland MD Primary Care Provider [phone] Encounter Details Date Type Department Care Team (Latest Contact Info) Description 05/13/2017 11:00 AM EDT Clinical Support Hematology/Oncology at [address] [phone] [facility] [place] [address] Dietary counseling Social History Tobacco Use Types Packs/Day Years Used Date Smoking Tobacco: Former Smokeless Tobacco: Never Comments:quite 17 years ago Sex and Gender Information Value Date Recorded Sex Assigned at Not on file Gender Identity Female 10/25/2020 5:11 AM EST Sexual Orientation Not on file documented as of this encounter Progress Notes * Lorraine Tan RD - 05/13/2017 11:00 AM EDT [facility] Initial Dietitian Assessment Seen By: Deisi Tan, MS, RD, HUMAN GEOGRAPHY INSTRUCTOR, LD Referred by: Mary Duque APRN Reason [...] ?? B. 01/23/17 - Right hemicolectomy Path ([facility] review) - CONSULTATION CASE Outside slide(s) labeled [id number], collection date 01/23/2017. Ascending colon, cecum, terminal [...] counseling documented in this encounter Care Teams Social Services Manager Relationship Specialty Start Date End Date Poly Copeland MD [address] [place] [address] PCP - General 09/15/10 documented as of this encounter
--- OUTSIDE RECORDS SUMMARY | 2024-09-14 12:47 | XMS_ITS | Encounter Summary ---
Author Organization [facility] Address [facility] [place] [address] Care Team Providers Care Service Rig Operator Name Role Phone Poly Copeland MD Primary Care Provider [phone] Reason for Visit * Reason Comments Chemotherapy Cycle 5 day 1 * Treatment/Therapy Plan Authorization (Routine) - Closed Specialty Diagnoses / Procedures Referred By Contac t Referred To Contact Diagnoses Malignant neoplasm of ascending colon Raffi Del Toro MD [facility] [place] [address] Referral ID Status Reason Start Date Expiration Date Visits Re quested Visits Authorized [id number] Closed 03/04/2017 03/04/2018 1 1 Encounter Details Date Type Department Care Team (Late st Contact Info) Description 06/15/2017 10:00 AM EDT Infusion Hematology Oncology at [address] [phone] Malignant neoplasm of ascending colon [...] height, weight and BSA by Rajani Ayala [facility]. and Jeri Pritchett, [place]. At time of [...] mL/hr documented in this encounter Care Teams Service Rig Operator Relationship Specialty Start Date End Date Poly Copeland MD [address] [place] [address] PCP - General 09/15/10 documented as of this encounter
--- OUTSIDE RECORDS SUMMARY | 2024-09-14 12:47 | XMS_ITS | Encounter Summary ---
[place] [address] Care Team Providers Care Paving Inspector Name Role Phone Poly Copeland MD Primary Care Provider [phone] Reason for Referral * Consultation (Routine) - Closed Specialty Diagnoses / Procedures Referred By Contac t Referred To Contact Hematology and Oncology Diagnoses Malignant neoplasm of ascending colon Carcinoma in situ of breast, unspecified laterality, unspecified type Mary Duque APRN [address] [place] [address] [facility] Hem Onc [address] [place] [address] Referral ID Status Reason Start Date Expiration Date V isits Requested Visits Authorized [id number] Closed Consult, Test & Treat 04/29/2017 04/29/2018 1 1 Encounter Details Date Type Department Care Team (Late st Contact Info) Description 04/29/2017 3:15 PM EDT Office Visit Hematology/Oncology at [address] [phone] Mary Duque APRN [address] [place] [address] Malignant neoplasm of ascending colon; [...] this encounter Progress Notes * Mary Duque, CAREER DEVELOPMENT COORDINATOR/TEACHER - 04/29/2017 4:00 PM EDT Subjective: Patient [...] process. B. 01/23/17 - Right hemicolectomy Path ([facility] review) - CONSULTATION CASE Outside slide(s) labeled [id number], collection date 01/23/2017. Ascending colon, cecum, terminal [...] tylenol. Soc Hx: , lives alone in [place], [place] Tob - Quit 17 years ago Etoh - None Works [employer] Fam Hx: Father - at age 81, [...] h/a. We have scheduled an appt for soccer referee for Tuesday and plan to refer her [...] did see sigmoid diverticula. Mary Duque, MSN, SWIFT TENDER, AOCN Hematology/Oncology Nurse Practitioner [place], [place] [phone] documented in this encounter Plan of Treatment [...] type documented in this encounter Care Teams Paving Inspector Relationship Specialty Start Date End Date Poly Copeland MD [address] [place] [address] [address] [facility] [address] [place] [address] PCP - General 09/15/10 documented as of this encounter
--- OUTSIDE RECORDS SUMMARY | 2024-09-14 12:47 | XMS_ITS | Encounter Summary ---
Author Organization [facility] Address [facility] [place] [address] Care Team Providers Care Post Manager Name Role Phone Poly Copeland MD Primary Care Provider [phone] Reason for Visit * Reason Comments Chemotherapy FOLFOX, Cycle 8, Day 1 * Treatment/Therapy Plan Authorization (Routine) - Closed Specialty Diagnoses / Procedures Referred By Contac t Referred To Contact Diagnoses Malignant neoplasm of ascending colon Raffi Del Toro MD [facility] [place] [address] Referral ID Status Reason Start Date Expiration Date Visits Re quested Visits Authorized [id number] Closed 03/04/2017 03/04/2018 1 1 Encounter Details Date Type Department Care Team (Late st Contact Info) Description 07/27/2017 8:00 AM EDT Infusion Hematology Oncology at [address] [phone] Malignant neoplasm of ascending colon [...] mL/hr documented in this encounter Care Teams Post Manager Relationship Specialty Start Date End Date Poly Copeland MD [address] [place] [address] PCP - General 09/15/10 documented as of this encounter
--- OUTSIDE RECORDS SUMMARY | 2024-09-14 12:47 | XMS_ITS | Encounter Summary ---
Author Organization [facility] Address [facility] [place] [address] Care Team Providers Care Artificial Breeding Ranch Supervisor Name Role Phone Poly Copeland MD Primary Care Provider [phone] Reason for Visit * Reason Comments Chemotherapy Cycle 9, Day 1 -- Fo lfox * Treatment/Therapy Plan Authorization (Routine) - Closed Specialty Diagnoses / Procedures Referred By Contac t Referred To Contact Diagnoses Malignant neoplasm of ascending colon Raffi Del Toro MD [facility] [place] [address] Referral ID Status Reason Start Date Expiration Date Visits Re quested Visits Authorized [id number] Closed 03/04/2017 03/04/2018 1 1 Encounter Details Date Type Department Care Team (Late st Contact Info) Description 08/09/2017 11:30 AM EDT Infusion Hematology Oncology at [address] [phone] Malignant neoplasm of ascending [...] by Starla Granda Rn and Mitali Richter [facility]. REACTIONS (DESCRIPTION, TIME, INTERVENTION AND EFFECTIVENESS) [...] mL/hr documented in this encounter Care Teams Artificial Breeding Ranch Supervisor Relationship Specialty Start Date End Date Poly Copeladn MD [address] [place] [address] PCP - General 09/15/10 documented as of this encounter
--- OUTSIDE RECORDS SUMMARY | 2024-09-14 12:47 | XMS_ITS | Encounter Summary ---
Author Organization [facility]ly [facility] Address [facility] [place] [address] Care Team Providers Care Supervisor Benzene Refining Name Role Phone Poly Copeland MD Primary Care Provider [phone] Reason for Visit * Reason Comments Chemotherapy Cycle 2, Day 1 -- Fo lfox * Treatment/Therapy Plan Authorization (Routine) - Closed Specialty Diagnoses / Procedures Referred By Contac t Referred To Contact Diagnoses Malignant neoplasm of ascending colon Raffi Del Toro MD [facility] [place] [address] Referral ID Status Reason Start Date Expiration Date Visits Re quested Visits Authorized [id number] Closed 03/04/2017 03/04/2018 1 1 Encounter Details Date Type Department Care Team (Late st Contact Info) Description 04/13/2017 9:00 AM EDT Infusion Hematology Oncology at [address] [phone] Malignant neoplasm of ascending colon [...] Progress Notes * Mary Granda RN - 04/13/2017 9:00 AM EDT INFUSION [...] BSA by Starla Granda RN and Drake [facility]. REACTIONS (DESCRIPTION, TIME, INTERVENTION AND EFFECTIVENESS) none ASSESSMENT: Kelly was awake, alert and tolerated treatment well. CADD pump provided by [employer], pump was double checked by Starla Granda [...] documented in this encounter Care Teams Supervisor Benzene Refining Relationship Specialty Start Date End Date Poly Copeland MD [employer] [address] [place] [address] PCP - General 09/15/10 documented as of this encounter
--- OUTSIDE RECORDS SUMMARY | 2024-09-14 12:47 | XMS_ITS | Encounter Summary ---
Author Organization [facility] [place] [address] Care Team Providers Care Logistics Intern Name Role Phone Poly Copeland MD Primary Care Provider [phone] Encounter Details Date Type Department Care Team (Late st Contact Info) Description 04/22/2017 1:00 PM EDT Office Visit Hematology/Oncology at [address] [phone] Mary Duque, INDUSTRIAL SERVICER [address] [facility] [place] [address] Malignant neoplasm of ascending colon; Carcinoma in [...] this encounter Progress Notes * Mary Duque, INDUSTRIAL SERVICER - 04/22/2017 1:00 PM EDT Subjective: Patient [...] process. B. 01/23/17 - Right hemicolectomy Path ([facility] review) - CONSULTATION CASE Outside slide(s) labeled [id number], collection date 01/23/2017. Ascending colon, cecum, terminal [...] lead. Soc Hx: , lives alone in [place], [place] Tob - Quit 17 years ago Etoh - None Works [employer] Fam Hx: Father - at age [...] (ELOXATIN) IV 85 mg/m2/dose = 177 [facility] 03/30/2017 Day, Cycle fluorouracil (ADRUCIL) IV 2,400 mg/m2/dose = 4,992 mg leucovorin IV OXALIplatin (ELOXATIN) IV [facility] ONCOLOGY ([facility]) 04/13/2017 Day, Cycle Day 1, Cycle 2 fluorouracil (ADRUCIL) IV 400 mg/m2/dose = 832 mg leucovorin IV 350 mg OXALIplatin (ELOXATIN) IV 42.5 mg/m2/dose = 88 mg [facility] 04/13/2017 Day, Cycle fluorouracil (ADRUCIL) IV 2,400 [...] 04/[address] Caruso. Mary Duque, MSN, RESPIRATORY CARE SPECIALIST, AOCN Hematology/Oncology Nurse Practitioner [place], [place] [phone] documented in this encounter Plan of Treatment [...] type documented in this encounter Care Teams Logistics Intern Relationship Specialty Start Date End Date Poly Copeland MD [address] [place] [address] [address] [place] [address] PCP - General 09/15/10 documented as of this encounter
--- OUTSIDE RECORDS SUMMARY | 2024-09-14 12:47 | XMS_ITS | Encounter Summary ---
Author Organization [facility] [place] [address] Care Team Providers Care Yard Loader Operator Name Role Phone Poly Copeland MD Primary Care Provider [phone] Encounter Details Date Type Department Care Team (Late st Contact Info) Description 06/10/2017 1:45 PM EDT Office Visit Hematology/Oncology at [address] [phone] Mary Duque, PLATFORM CONSULTANT [address] [facility] [place] [address] Malignant neoplasm of ascending colon Social History [...] this encounter Progress Notes * Mary Duque, PLATFORM CONSULTANT - 06/10/2017 1:45 PM EDT Subjective: Patient ID: Kelly Strikcland is a 77 y.o. female. Problem List: [...] review) - CONSULTATION CASE Outside slide(s) labeled [id number], collection date 01/23/2017. Ascending colon, cecum, terminal [...] chemotherapy. Soc Hx: , lives alone in [place], [place] Tob - Quit 17 years ago Etoh - None Works [employer] Fam Hx: Father - at age 81, [...] CEA 05/27/17 <0.5 05/13/17 .8 04/28/17 1.0 [facility] ([facility]) 06/01/2017 Day, Cycle Day 1, Cycle 4 fluorouracil (ADRUCIL) IV 300 mg/m2/dose = 621 mg leucovorin IV 350 mg OXALIplatin (ELOXATIN) IV 55.25 mg/m2/dose = 114 mg [facility] ([facility]) 06/01/2017 Day, Cycle fluorouracil (ADRUCIL) IV 1,800 [...] forward without the oxaliplatin. Mary Duque, MSN, SHOT TUBE MACHINE TENDER, AOCN Hematology/Oncology Nurse Practitioner [place], [place] [phone] documented in this encounter Plan of Treatment [...] colon documented in this encounter Care Teams Yard Loader Operator Relationship Specialty Start Date End Date Poly Copeland MD [address] [place] [address] PCP - General 09/15/10 documented as of this encounter
--- OUTSIDE RECORDS SUMMARY | 2024-09-14 12:47 | XMS_ITS | Encounter Summary ---
Author Organization [facility] Address [facility] [place] [address] Care Team Providers Care Director Music Name Role Phone Poly Copeland MD Primary Care Provider [phone] Reason for Visit * Reason Comments Chemotherapy * Treatment/Therapy Plan Authorization (Routine) - Closed Specialty Diagnoses / Procedures Referred By Contac t Referred To Contact Diagnoses Malignant neoplasm of ascending colon Raffi Del Toro MD [facility] [place] [address] Referral ID Status Reason Start Date Expiration Date Visits Re quested Visits Authorized [id number] Closed 03/04/2017 03/04/2018 1 1 Encounter Details Date Type Department Care Team (Late st Contact Info) Description 04/15/2017 1:30 PM EDT Infusion Hematology Oncology at [address] [phone] Malignant neoplasm of ascending colon Social History [...] treatment well. Port flushed with 20cc NS [id number] units Heparin then de-accessed. PLAN Return to [...] Job Aid: Adult Flushing & Catheter Care (0675) job aid for additional information regarding guidelines [...] Job Aid: Adult Flushing & Catheter Care (5035) job aid for additional information regarding guidelines and administration., Routine Given 04/15/2017 10:00 AM EDT 20 mLs documented in this encounter Care Teams Director Music Relationship Specialty Start Date End Date Poly Copeland MD [address] [place] [address] PCP - General 09/15/10 documented as of this encounter
--- OUTSIDE RECORDS SUMMARY | 2024-09-14 12:47 | XMS_ITS | Encounter Summary ---
Author Organization [facility] Address [facility] [place] [address] Care Team Providers Care Service Order Dispatcher Name Role Phone Poly Copeland MD Primary Care Provider [phone] Reason for Visit * Reason Comments Chemotherapy * Treatment/Therapy Plan Authorization (Routine) - Closed Specialty Diagnoses / Procedures Referred By Contac t Referred To Contact Diagnoses Malignant neoplasm of ascending colon Raffi Del Toro MD [facility] [place] [address] Referral ID Status Reason Start Date Expiration Date Visits Re quested Visits Authorized [id number] Closed 03/04/2017 03/04/2018 1 1 Encounter Details Date Type Department Care Team (Late st Contact Info) Description 05/16/2017 9:00 AM EDT Infusion Hematology Oncology at [address] [phone] Malignant neoplasm of ascending colon Social History [...] tolerated treatment well. CADD pump provided by [employer], pump was double checked by KENNEDY Mcbride [...] Job Aid: Adult Flushing & Catheter Care (9932) job aid for additional information regarding guidelines and administration., Routine Given 05/16/2017 9:00 AM EDT 20 mLs documented in this encounter Care Teams Service Order Dispatcher Relationship Specialty Start Date End Date Poly Copeland MD [address] [place] [address] [address] [place] [address] PCP - General 09/15/10 documented as of this encounter
--- OUTSIDE RECORDS SUMMARY | 2024-09-14 12:47 | XMS_ITS | Encounter Summary ---
Author Organization [facility] Address [facility] [place] [address] Care Team Providers Care Integrated Circuit Design Engineer Name Role Phone Poly Copeland MD Primary Care Provider [phone] Reason for Visit * Reason Comments Chemotherapy Cycle 6 Day 1 Folfox * Treatment/Therapy Plan Authorization (Routine) - Closed Specialty Diagnoses / Procedures Referred By Contac t Referred To Contact Diagnoses Malignant neoplasm of ascending colon Raffi Del Toro MD [facility] [place] [address] Referral ID Status Reason Start Date Expiration Date Visits Re quested Visits Authorized [id number] Closed 03/04/2017 03/04/2018 1 1 Encounter Details Date Type Department Care Team (Late st Contact Info) Description 06/29/2017 10:00 AM EDT Infusion Hematology Oncology at [address] [phone] Malignant neoplasm of ascending colon [...] height, weight and BSA by [facility]ala [facility] Mily. At time of administration Patient [...] mEq documented in this encounter Care Teams Integrated Circuit Design Engineer Relationship Specialty Start Date End Date Poly Copeland MD [address] [place] [address] [address] [facility] 1 [place] [address] PCP - General 09/15/10 documented as of this encounter
--- OUTSIDE RECORDS SUMMARY | 2024-09-14 12:47 | XMS_ITS | Encounter Summary ---
Author Organization [facility] Address [facility] [place] [address] Care Team Providers Care Russet Repairer Name Role Phone Poly Copeland MD Primary Care Provider Reason for Visit * Reason Comments IV Access 5FU pump disconnect * Treatment/Therapy Plan Authorization (Routine) - Closed Specialty Diagnoses / Procedures Referred By Contac t Referred To Contact Diagnoses Malignant neoplasm of ascending colon Raffi Del Toro MD [facility] [place] [address] Referral ID Status Reason Start Date Expiration Date Visits Re quested Visits Authorized [id number] Closed 03/04/2017 03/04/2018 1 1 Encounter Details Date Type Department Care Team (Late st Contact Info) Description 06/17/2017 11:00 AM EDT Infusion Hematology Oncology at [address] [phone] Malignant neoplasm of ascending colon Social History [...] Job Aid: Adult Flushing & Catheter Care (8767) job aid for additional information regarding guidelines [...] Job Aid: Adult Flushing & Catheter Care (9820) job aid for additional information regarding guidelines and administration., Routine Given 06/17/2017 12:45 PM EDT 20 mLs documented in this encounter Care Teams Russet Repairer Relationship Specialty Start Date End Date Poly Copeland MD [address] [facility] [address] [place] [address] PCP - General 09/15/10 documented as of this encounter
--- OUTSIDE RECORDS SUMMARY | 2024-09-14 12:47 | XMS_ITS | Encounter Summary ---
Author Organization [facility] Address [facility] [place] [address] Care Team Providers Care Assembly Line Leader Name Role Phone Poly Copeland MD Primary Care Provider [phone] Reason for Visit * Reason Comments IV Access pump disconnect and IVF * Treatment/Therapy Plan Authorization (Routine) - Closed Specialty Diagnoses / Procedures Referred By Contac t Referred To Contact Diagnoses Malignant neoplasm of ascending colon Raffi Del Toro MD [facility] [place] [address] Referral ID Status Reason Start Date Expiration Date Visits Re quested Visits Authorized [id number] Closed 03/04/2017 03/04/2018 1 1 Encounter Details Date Type Department Care Team (Late st Contact Info) Description 08/11/2017 12:30 PM EDT Infusion Hematology Oncology at [address] [phone] Malignant neoplasm of ascending colon [...] 36.4 ??C (97.5 ??F) (Oral) Resp 18 KhE262% REACTIONS (DESCRIPTION, TIME, INTERVENTION AND EFFECTIVENESS) none [...] (IV) Procedure: Accessing Implanted Vascular Access Devices (634) procedure and/or Intravenous (IV) Job Aid: Adult Flushing & Catheter Care (4126) job aid for additional information regarding guidelines [...] Job Aid: Adult Flushing & Catheter Care (4645) job aid for additional information regarding guidelines and administration., Routine Given 08/11/2017 3:05 PM EDT 20 mLs sodium chloride 0.9% infusion 1,000 mL/hr, Intravenous, ONCE, 1 dose, On Ayesha 08/11/17 at 1415 New Bag 08/11/2017 2:05 PM EDT 1,000 mL/hr 1000 mL/hr documented in this encounter Care Teams Assembly Line Leader Relationship Specialty Start Date End Date Poly Copeland MD [address] [place] [address] PCP - General 09/15/10 documented as of this encounter
--- OUTSIDE RECORDS SUMMARY | 2024-09-14 12:47 | XMS_ITS | Encounter Summary ---
Author Organization [place] [address] Care Team Providers Care Associate Sales Manager Name Role Phone Poly Copeland MD Primary Care Provider [phone] Encounter Details Date Type Department Care Team (Late st Contact Info) Description 01/25/2018 3:20 PM EDT - 01/25/2018 11:59 PM EDT Hospital Encounter Radiology Library [place] [phone] Poly Copeland MD [address] [place], [place] [address] Breast mass, right Discharge Disposition: Home Social [...] the care of this patient. STUDIES FROM: [facility] DATES: August 17, 2011 plus recent [...] enhancement features. Please note: Breast ultrasound is earth auger operator dependent. Complete assessment of the breast [...] alter the care ofthis patient. STUDIES FROM: [facility] DATES: August 17, 2011 plus recent [...] enhancement features. Please note: Breast ultrasound is earth auger operator dependent. Complete assessmentof the breast tissue [...] breast documented in this encounter Care Teams Associate Sales Manager Relationship Specialty Start Date End Date Poly Copeland MD [address] [place] [address] PCP - General 09/15/10 documented as of this encounter
--- OUTSIDE RECORDS SUMMARY | 2024-09-14 12:47 | XMS_ITS | Encounter Summary ---
Author Organization [facility] [place] [address] Care Team Providers Care Nursing Program Chair Name Role Phone Poly Copeland MD Primary Care Provider [phone] Encounter Details Date Type Department Care Team (Latest Contact Info) Description 04/22/2017 1:00 PM EDT Clinical Support Hematology/Oncology at [address] [phone] [facility] [place] [address] Dietary counseling Social History Tobacco Use Types Packs/Day Years Used Date Smoking Tobacco: Former Smokeless Tobacco: Never Sex and Gender Information Value Date Recorded Sex Assigned at Not on file Gender Identity Female 10/25/2020 5:11 AM EST Sexual Orientation Not on file documented as of this encounter Progress Notes * Lorraine Tan RD - 04/22/2017 1:00 PM EDT [facility] Initial Dietitian Assessment Seen By: Deisi Tan, , RD, CRUDE UNIT OPERATOR, LD Referred by: Mary Duque APRN Reason [...] ?? B. 01/23/17 - Right hemicolectomy Path ([facility] review) - CONSULTATION CASE Outside slide(s) labeled [id number], collection date 01/23/2017. Ascending colon, cecum, terminal [...] counseling documented in this encounter Care Teams Nursing Program Chair Relationship Specialty Start Date End Date Poly Copeland MD [address] [place] [address] PCP - General 09/15/10 documented as of this encounter
--- OUTSIDE RECORDS SUMMARY | 2024-09-14 12:47 | XMS_ITS | Encounter Summary ---
Author Organization Formerly [facility] Address [facility] [place] [address] Care Team Providers Care Instructional Design Specialist Name Role Phone Poly Copeland MD Primary Care Provider [phone] Reason for Visit * Reason Comments Chemotherapy FOLFOX, Cycle 4, Day 1 * Treatment/Therapy Plan Authorization (Routine) - Closed Specialty Diagnoses / Procedures Referred By Contac t Referred To Contact Diagnoses Malignant neoplasm of ascending colon Raffi Del Toro MD [facility] [place] [address] Referral ID Status Reason Start Date Expiration Date Visits Re quested Visits Authorized [id number] Closed 03/04/2017 03/04/2018 1 1 Encounter Details Date Type Department Care Team (Late st Contact Info) Description 06/01/2017 10:30 AM EDT Infusion Hematology Oncology at [address] [phone] Malignant neoplasm of ascending colon [...] Sign Reading Time Taken Comments Blood Pressure 137/69 06/01/2017 9:55 AM EDT Pulse 72 06/01/2017 9:55 AM EDT Temperature 36.4 ??C (97.5 ??F) 06/01/2017 9:55 AM ED T Respiratory Rate 18 06/01/2017 9:55 AM EDT Oxygen Saturation 100% 06/01/2017 9:55 AM EDT Inhaled Oxygen Concentration - - Weight 97.5 kg (215 lb) 06/01/2017 9:55 AM EDT Height - - Body Mass Index 37.16 05/27/2017 8:25 AM EDT documented in this encounter Progress Notes * Naila Ayala RN - 06/01/2017 10:30 AM EDT INFUSION THERAPY ADMINISTRATION NOTES DIAGNOSIS: Colon cancer CYCLE #4, Day 1 REASON FOR VISIT: FOLFOX infusion and initiation of continunous home 5FU infusion via CADD pump provided by [employer] FRANSISCA Mendoza offers no complaints. OBJECTIVE LAB DATA: WEB 9.62, HGB 12.5, PLTS 221, ANC 4.96, Creat 1.11 Pre administration: Chemotherapy orders independently verified for drug name, route, and dosage per patient's height, weight and BSA by Naila Ayala RN and Jeri Pritchett RN. At time of administration Patient identity verified using patient's name and date of at the chair/bedside by double RN check just prior to initiating the patient's home infusion chemotherapy via CADD pump provided by [employer]. Fluorouracil 3,762 mg over 46 hours, IV via CADD pump. Amount infused verified by double RN check after 15 minutes and appropriate amount had infused. REACTIONS (DESCRIPTION, TIME, INTERVENTION AND EFFECTIVENESS) none ASSESSMENT Ashley was awake, alert and tolerated treatment well. PLAN Return to clinic on 06/03/17 @ 1110 for disconnect. documented in this encounter Plan of Treatment Not on file documented as of this encounter Procedures Procedure Name Priority Date/Time Associated Diagnosis Comments LAB SCAN 06/01/2017 12:00 AM EDT LAB SCAN 06/01/2017 12:00 AM EDT documented in this encounter Results * SCAN DOC: LAB (06/01/2017 12:00 AM EDT) Narrative 06/01/2017 12:00 AM EDT Ordered by an unspecified provider. Scanning Provider MEDIA MGR SCAN EXT O RDR/RSLT * SCAN DOC: LAB (06/01/2017 12:00 AM EDT) Narrative 06/01/2017 12:00 AM EDT Ordered by an unspecified [...] 10 mg, Oral, ONCE, 1 dose, On Tue06/01/17 at 1030, Administer prior to chemotherapy, Routine Given 06/01/2017 10:24 AM EDT 10 mg fluorouracil (ADRUCIL) 3,726 mg in sodium chloride 0.9% 138 mL chemo infusion 3,726 mg (1,800 mg/m2/dose ? 2.07 m2 Treatment Plan BSA from Recorded weight), Intravenous, ONCE, 1 dose, On Tue06/01/17 at 1300, Administer over 46 Hours, Warning Vesicant/Irritant Medication To be infused via an ambulatory infusion CADD Legacy Plus pump continuously IV at 3 mL/hr for 46 hours. Pump contains a 46 hour supply and provides a daily dose of 1200 mg/m2/day = 2400 mg/m2 IV over 46 hours with 12 mL of overfill in bag. Given 06/01/2017 1:07 PM EDT 3,726 mg 3 mL/hr fluorouracil (ADRUCIL) chemo injection 621 mg 621 mg (300 mg/m2/dose ? 2.07 m2 Treatment Plan BSA from Recorded weight), Intravenous, ONCE, 1 dose, On Tue06/01/17 at 1130, Administer over 5 Minutes Given 06/01/2017 1:03 PM EDT 621 mg 149 m L/hr leucovorin 350 mg in dextrose 5% 535 mL infusion 350 mg, Intravenous, ONCE, 1 dose, On Tue06/01/17 at 1130, Administer over 85 Minutes, May Y-site with OXALIplatin New Bag 06/01/2017 11:19 AM EDT 350 mg 378 mL/hr ondansetron (ZOFRAN) 8 mg in sodium chloride 0.9% 50 mL 8 mg, Intravenous, ONCE, 1 dose, On Tue06/01/17 at 1030, Administer over 15 Minutes Given 06/01/2017 10:35 AM EDT 8 mg 216 mL/hr OXALIplatin (ELOXATIN) 114 mg in dextrose 5% 272.8 mL chemo infusion 114 mg (rounded from 114.3675 mg = 55.25 mg/m2/dose ? 2.07 m2 Treatment Plan BSA from Recorded weight), Intravenous, ONCE, 1 dose, On Tue06/01/17 at 1130, Administer over 85 Minutes, Compatible with dextrose-containing solution only. Warning Vesicant/Irritant Medication New Bag 06/01/2017 11:19 AM EDT 114 mg 193 mL/hr documented in this encounter Care Teams Instructional Design Specialist Relationship Specialty Start Date End Date Poly Copeland MD [address] [place] [address] [address] [facility] [address] [place] [address] PCP - General 09/15/10 documented as of this encounter
--- OUTSIDE RECORDS SUMMARY | 2024-09-14 12:47 | XMS_ITS | Encounter Summary ---
Author Organization Counts Include [facility] Address [facility] [place] [address] Care Team Providers Care Qa Test Lead Name Role Phone Poly Copeland MD Primary Care Provider [phone] Reason for Visit * Reason Comments Chemotherapy Cycle 6 Day 3 * Treatment/Therapy Plan Authorization (Routine) - Closed Specialty Diagnoses / Procedures Referred By Contac t Referred To Contact Diagnoses Malignant neoplasm of ascending colon Raffi Del Toro MD [facility] [address] Referral ID Status Reason Start Date Expiration Date Visits Re quested Visits Authorized [id number] Closed 03/04/2017 03/04/2018 1 1 Encounter Details Date Type Department Care Team (Late st Contact Info) Description 07/01/2017 12:00 PM EDT Infusion Hematology Oncology at [address] [phone] Malignant neoplasm of ascending colon [...] DIAGNOSIS: 1. Malignant neoplasm of ascending colon Goat Farmer orders intended for Ambulatory Clinic, Inpatient and Home Infusion use. Home Infusion: Pump Disconnect heparin, porcine 100 unit/mL flush 500 Units sodium chloride 0.9 % flush 5-20 mL Goat Farmer orders intended for Ambulatory Clinic, Inpatient and Home Infusion use. REASON FOR VISIT: Discontinue 5FU home infusion and deaccess mediport SUBJECTIVE Kelly Strickland denies any complaints. OBJECTIVE: VITAL SIGNS: BP 136/90 (Patient Position: Sitting) Pulse 80 Temp 36.5 ??C (97.7 ??F) (Oral) Resp 18 [id number]% REACTIONS (DESCRIPTION, TIME, INTERVENTION AND EFFECTIVENESS) none [...] Job Aid: Adult Flushing & Catheter Care (7598) job aid for additional information regarding guidelines [...] Job Aid: Adult Flushing & Catheter Care (1993) job aid for additional information regarding guidelines and administration., Routine Given 07/01/2017 1:00 PM EDT 20 mLs documented in this encounter Care Teams Qa Test Lead Relationship Specialty Start Date End Date Poly Copeland MD [address] [place] [address] PCP - General 09/15/10 documented as of this encounter
--- OUTSIDE RECORDS SUMMARY | 2024-09-14 12:47 | XMS_ITS | Encounter Summary ---
Author Organization [facility] Address [facility] [place] [address] Care Team Providers Care Sfdc Architect Name Role Phone Poly Copeland MD Primary Care Provider [phone] Encounter Details Date Type Department Care Team (Latest Contact Info) Description 01/24/2018 12:05 AM EDT - 01/24/2018 11:59 PM EDT Hospital Encounter Radiology Library at [facility] [place] [phone] Tucker Calle MD [facility] [place] [address] Discharge Disposition: Home Social History Tobacco Use [...] Only Mammo (01/24/2018 12:05 AM EDT) Narrative [facility] - 01/25/2018 9:41 AM EDT This exam is for storage only and is auto-finalizing. Tucker Calle MD IMG FILM LIBRARY ORD ERABLES [place], [place] documented in this encounter Visit Diagnoses Not on filedocumented in this encounter Care Teams Sfdc Architect Relationship Specialty Start Date End Date Poly Copeland MD [address] [place] [address] PCP - General 09/15/10 documented as of this encounter
--- OUTSIDE RECORDS SUMMARY | 2024-09-14 12:47 | XMS_ITS | Encounter Summary ---
Author Organization [facility] Address [facility] [place] [address] Care Team Providers Care Research Investigator Name Role Phone Poly Copeland MD Primary Care Provider [phone] Encounter Details Date Type Department Care Team (Late st Contact Info) Description 12/30/2017 1:30 PM EST Office Visit Hematology/Oncology at [address] [address] Raffi Del Toro MD [facility] [place] [address] Malignant neoplasm of ascending colon; Neuropathic pain [...] process. B. 01/23/17 - Right hemicolectomy Path ([facility] review) - CONSULTATION CASE Outside slide(s) labeled [id number], collection date 01/23/2017. Ascending colon, cecum, terminal [...] just got back from 10 days in [place]. The weather was wonderful and she had [...] BRBPR. Soc Hx: , lives alone in [place], [place] Tob - Quit 17 years ago Etoh - None Works [employer] Fam Hx: Father - at age [...] unspecified documented in this encounter Care Teams Research Investigator Relationship Specialty Start Date End Date Poly Copeland MD [address] [place] [address] PCP - General 09/15/10 documented as of this encounter
--- OUTSIDE RECORDS SUMMARY | 2024-09-14 12:47 | XMS_ITS | Encounter Summary ---
Author Organization Formerly [facility] [place] [address] Care Team Providers Care National Sales Consultant Name Role Phone Poly Copeland MD Primary Care Provider [phone] Encounter Details Date Type Department Care Team (Late st Contact Info) Description 05/27/2017 9:00 AM EDT Office Visit Hematology/Oncology at [address] [phone] Mary Duque, LEAD DATABASE DEVELOPER [address] [facility] [place] [address] Malignant neoplasm of ascending colon; Headache, chronic [...] encounter Progress Notes * Dunia Mary A, LEAD DATABASE DEVELOPER - 05/27/2017 9:00 AM EDT Subjective: Patient [...] process. B. 01/23/17 - Right hemicolectomy Path ([facility] review) - CONSULTATION CASE Outside slide(s) labeled [id number], collection date 01/23/2017. Ascending colon, cecum, terminal [...] chemotherapy. Soc Hx: , lives alone in [place], [place] Tob - Quit 17 years ago Etoh - None Works [employer] Fam Hx: Father - at age 81, [...] or other bothersome issues. Mary Duque, MSN, ASSISTANT FINANCE MANAGER, AOCN Hematology/Oncology Nurse Practitioner [place], [place] [phone] documented in this encounter Plan of Treatment Not on file documented as of this encounter Visit Diagnoses Diagnosis Malignant neoplasm of ascending colon Headache, chronic daily Headache documented in this encounter Care Teams National Sales Consultant Relationship Specialty Start Date End Date Poly Copeland MD [address] [place] [address] PCP - General 09/15/10 documented as of this encounter
--- OUTSIDE RECORDS SUMMARY | 2024-09-14 12:47 | XMS_ITS | Encounter Summary ---
Author Organization [facility] [place] [address] Care Team Providers Care Retail Chain Store Area Supervisor Name Role Phone Poly Copeland MD Primary Care Provider Encounter Details Date Type Department Care Team (Latest Contact Info) Description 06/10/2017 1:45 PM EDT Clinical Support Hematology/Oncology at [address] [phone] [facility] [place] [address] Dietary counseling Social History Tobacco Use Types Packs/Day Years Used Date Smoking Tobacco: Former Smokeless Tobacco: Never Comments:quite 17 years ago Sex and Gender Information Value Date Recorded Sex Assigned at Not on file Gender Identity Female 10/25/2020 5:11 AM EST Sexual Orientation Not on file documented as of this encounter Progress Notes * Lorraine Tan RD - 06/10/2017 1:45 PM EDT [facility] Initial Dietitian Assessment Seen By: Deisi Tan, MS, RD, PROCESSING SPEC, LD Referred by: Mary Duque APRN Reason [...] ?? B. 01/23/17 - Right hemicolectomy Path ([facility] review) - CONSULTATION CASE Outside slide(s) labeled [id number], collection date 01/23/2017. Ascending colon, cecum, terminal [...] counseling documented in this encounter Care Teams Retail Chain Store Area Supervisor Relationship Specialty Start Date End Date Poly Copeland MD [address] [facility] [facility] [address] [place] [address] PCP - General 09/15/10 documented as of this encounter
--- OUTSIDE RECORDS SUMMARY | 2024-09-14 12:47 | XMS_ITS | Encounter Summary ---
Author Organization [facility] Address [facility] [place] [address] Care Team Providers Care Director Of Security Name Role Phone Poly Copeland MD Primary Care Provider [phone] Encounter Details Date Type Department Care Team (Latest Contact Info) Description 09/08/2017 - 09/08/2017 11:59 PM EST Hospital Encounter Radiology Library at [facility] [place] [phone] Raffi Del Toro MD [facility] [place] [address] Discharge Disposition: Home Social History Tobacco Use [...] Abdomen Pelvis (09/08/2017 12:00 AM EST) Narrative [facility] - 09/08/2017 6:13 PM EST This exam is for storage only and is auto-finalizing. Raffi Del Toro MD [facility] FILM LIBRARY ORD ERABLES [facility] [place] * SCAN DOC: LAB (09/08/2017 12:00 AM EST) Narrative 09/08/2017 12:00 AM EST Ordered by an unspecified provider. Scanning Provider MEDIA MGR SCAN EXT O RDR/RSLT documented in this encounter Visit Diagnoses Not on filedocumented in this encounter Care Teams Director Of Security Relationship Specialty Start Date End Date Poly Copeland MD [address] [place] [address] PCP - General 09/15/10 documented as of this encounter
--- OUTSIDE RECORDS SUMMARY | 2024-09-14 12:47 | XMS_ITS | Encounter Summary ---
Author Organization Formerly [facility] [place] [address] Care Team Providers Care Drum Stenciler Name Role Phone Poly Copeland MD Primary Care Provider [phone] Reason for Visit * Reason Comments Schedule Office Case * Consultation (Routine) - Closed Specialty Diagnoses / Procedures Referred By Contac t Referred To Contact Hematology and Oncology Diagnoses Malignant neoplasm of ascending colon Carcinoma in situ of breast, unspecified laterality, unspecified type Mary Duque, PERSONAL LINES APPRAISER [address] [place] [address] [facility] [address] [place] [address] Referral ID Status Reason Start Date Expiration Date V isits Requested Visits Authorized [id number] Closed Consult, Test & Treat 04/29/2017 04/29/2018 1 1 Encounter Details Date Type Department Care Team (Late st Contact Info) Description 05/10/2017 10:30 AM EDT Office Visit Hematology [place] [address] Yanely Ambrose, [facility] [place] [address] Headache, chronic daily Social History Tobacco [...] original note were not included. 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 She began treatment [...] Duque APRN and Dr. Del Toro in [facility]. I explained that we could try to manage this remotely without the need to drive to [facility] for follow-up directly with me. I will discuss this with Mary Duque as well. However, I would be glad to see her in follow-up at any point. I spent 45 minutes in [id number] contact with the patient. Of this time, 35 minutes were spent incounseling and/or coordination of care, as detailed in the assessment and plan above. documented in this encounter Plan of Treatment Not on file documented as of this encounter Visit Diagnoses Diagnosis Headache, chronic daily Headache documented in this encounter Care Teams Drum Stenciler Relationship Specialty Start Date End Date Poly Copeland MD [address] [place] [address] PCP - General 09/15/10 documented as of this encounter
--- OUTSIDE RECORDS SUMMARY | 2024-09-14 12:47 | XMS_ITS | Encounter Summary ---
Author Organization Replaced By [facility] Address [facility] [place] [address] Care Team Providers Care Paint Spray Tender Name Role Phone Poly Copeland MD Primary Care Provider [phone] Reason for Referral * Consultation (Routine) - Specialty Diagnoses / Procedures Referred By Contgail t Referred To Contact Diagnoses Malignant neoplasm of ascending colon Raffi Del Toro MD [facility] [place] [address] Arnaldo Gardiner, DO [address] [place] [phone] Referral ID Status Reason Start Date Expiration Date V isits Requested Visits Authorized [id number] Consult, Test & Treat 09/16/2017 03/15/2018 1 1 Encounter Details Date Type Department Care Team (Late st Contact Info) Description 09/16/2017 2:00 PM EST Office Visit Hematology/Oncology at [address] [phone] Raffi Del Toro MD [facility] [place] [address] Malignant neoplasm of ascending colon [...] process. B. 01/23/17 - Right hemicolectomy Path ([place] review) - CONSULTATION CASE Outside slide(s) labeled [id number], collection date 01/23/2017. Ascending colon, cecum, terminal [...] infection. Soc Hx: , lives alone in [place], [place] Tob - Quit 17 years ago Etoh - None Works [employer] Fam Hx: Father - at age 81, [...] colon documented in this encounter Care Teams Paint Spray Tender Relationship Specialty Start Date End Date Poly Copeland MD [address] [place] [address] [address] [facility] 1 [place] [address] PCP - General 09/15/10 documented as of this encounter
--- OUTSIDE RECORDS SUMMARY | 2024-09-14 12:47 | XMS_ITS | Encounter Summary ---
Author Organization [facility] Address [facility] [place] [address] Care Team Providers Care Centrifugal Wax Molder Name Role Phone Poly Copeland MD Primary Care Provider [phone] Encounter Details Date Type Department Care Team (Latest Contact Info) Description 07/22/2017 - 07/22/2017 11:59 PM EDT Hospital Encounter Radiology Library at [facility] [place] [address] Tucker Calle MD [facility] [address] [address] Discharge Disposition: Home Social History Tobacco Use [...] Only Mammo (07/22/2017 12:00 AM EDT) Narrative [facility] - 01/25/2018 9:42 AM EDT This exam is for storage only and is auto-finalizing. Tucker Calle MD IMG FILM LIBRARY ORD ERABLES [place], [place] documented in this encounter Visit Diagnoses Not on filedocumented in this encounter Care Teams Centrifugal Wax Molder Relationship Specialty Start Date End Date Poly Copeland MD [address] [facility] [address] [place] [address] PCP - General 09/15/10 documented as of this encounter
--- OUTSIDE RECORDS SUMMARY | 2024-09-14 12:47 | XMS_ITS | Encounter Summary ---
Author Organization [facility] [place] [address] Care Team Providers Care Game Tester Name Role Phone Poly Copeland MD Primary Care Provider [phone] Encounter Details Date Type Department Care Team (Late st Contact Info) Description 04/08/2017 9:00 AM EDT Office Visit Hematology/Oncology at [address] [phone] Mary Duque, LINOTYPE MACHINIST [address] [facility] [address] Malignant neoplasm of ascending colon Social History [...] this encounter Progress Notes * Mary Duque, LINOTYPE MACHINIST - 04/08/2017 9:00 AM EDT Subjective: Patient [...] process. B. 01/23/17 - Right hemicolectomy Path ([facility] review) - CONSULTATION CASE Outside slide(s) labeled [id number], collection date 01/23/2017. Ascending colon, cecum, terminal [...] effectively. Soc Hx: , lives alone in [place], [place] Tob - Quit 17 years ago Etoh - None Works [employer] Fam Hx: Father - at age 81, [...] 04/[address] Caruso. Mary Duque, MSN, CRISIS SPECIALIST, AOCN Hematology/Oncology Nurse Practitioner [place], [place] [phone] documented in this encounter Plan of Treatment [...] colon documented in this encounter Care Teams Game Tester Relationship Specialty Start Date End Date Poly Copeland MD [address] [place] [address] PCP - General 09/15/10 documented as of this encounter
--- OUTSIDE RECORDS SUMMARY | 2024-09-14 12:47 | XMS_ITS | Encounter Summary ---
Author Organization [facility] [place] [address] Care Team Providers Care Psychology Clinician Name Role Phone Poly Copeland MD Primary Care Provider Encounter Details Date Type Department Care Team (Late st Contact Info) Description 06/29/2017 Orders Only Hematology [place] [phone] Rfafi Del Toro MD [facility] [place] [address] Hypokalemia Social History Tobacco Use Types Packs/Day [...] Hypopotassemia documented in this encounter Care Teams Psychology Clinician Relationship Specialty Start Date End Date Poly Copeland MD [address] [place], [place] [address] PCP - General 09/15/10 documented as of this encounter
--- OUTSIDE RECORDS SUMMARY | 2024-09-14 12:47 | XMS_ITS | Encounter Summary ---
Author Organization [facility] [place] [address] Care Team Providers Care Paediatric Surgeon Name Role Phone Poly Copeland MD Primary Care Provider [phone] Encounter Details Date Type Department Care Team (Late st Contact Info) Description 06/24/2017 9:00 AM EDT Office Visit Hematology/Oncology at [address] [phone] Raffi Del Toro MD [facility] [place] [address] Malignant neoplasm of ascending colon Social History [...] review) - CONSULTATION CASE Outside slide(s) labeled [id number], collection date 01/23/2017. Ascending colon, cecum, terminal [...] changes. Soc Hx: , lives alone in [place], [place] Tob - Quit 17 years ago Etoh - None Works [employer] Fam Hx: Father - at age 81, [...] colon documented in this encounter Care Teams Paediatric Surgeon Relationship Specialty Start Date End Date Poly Copeland MD [address] [place] [address] PCP - General 09/15/10 documented as of this encounter
--- OUTSIDE RECORDS SUMMARY | 2024-09-14 12:47 | XMS_ITS | Encounter Summary ---
[facility] Organization [facility] Address [facility] [place] [address] Care Team Providers Care Compounding Technician Name Role Phone Poly Copeland MD Primary Care Provider Encounter Details Date Type Department Care Team (Late st Contact Info) Description 08/19/2017 11:00 AM EDT Office Visit Hematology/Oncology at [address] [phone] Raffi Del Toro MD [facility] [place] [address] Malignant neoplasm of ascending colon; Skin infection [...] review) - CONSULTATION CASE Outside slide(s) labeled [id number], collection date 01/23/2017. Ascending colon, cecum, terminal [...] infection. Soc Hx: , lives alone in [place], [place] Tob - Quit 17 years ago Etoh - None Works [employer] Fam Hx: Father - at age 81, [...] CT c/a/p. For the redness at the [facility], I gave her a prescription today [...] tissue documented in this encounter Care Teams Compounding Technician Relationship Specialty Start Date End Date Poly Copeland MD [address] [place] [address] PCP - General 09/15/10 documented as of this encounter
--- OUTSIDE RECORDS SUMMARY | 2024-09-14 12:47 | XMS_ITS | Encounter Summary ---
Author Organization [facility] Address [facility] [place] [address] Care Team Providers Care School Library Media Program Director Name Role Phone Poly Copeland MD Primary Care Provider [phone] Reason for Visit * Reason Comments IV Medication * Treatment/Therapy Plan Authorization (Routine) - Closed Specialty Diagnoses / Procedures Referred By Contac t Referred To Contact Diagnoses Malignant neoplasm of ascending colon Raffi Del Toro MD [facility] [place] [address] Referral ID Status Reason Start Date Expiration Date Visits Re quested Visits Authorized [id number] Closed 03/04/2017 03/04/2018 1 1 Encounter Details Date Type Department Care Team (Late st Contact Info) Description 07/29/2017 11:30 AM EDT Infusion Hematology Oncology at [address] [phone] Malignant neoplasm of ascending colon Social History [...] Job Aid: Adult Flushing & Catheter Care (8814) job aid for additional information regarding guidelines [...] Job Aid: Adult Flushing & Catheter Care (2671) job aid for additional information regarding guidelines and administration., Routine Given 07/29/2017 9:45 AM EDT 20 mLs documented in this encounter Care Teams School Library Media Program Director Relationship Specialty Start Date End Date Poly Copeland MD [address] [facility] [address] [place] [address] PCP - General 09/15/10 documented as of this encounter
--- OUTSIDE RECORDS SUMMARY | 2024-09-14 12:48 | XMS_ITS | Encounter Summary ---
Author Organization [facility] [place] [address] Care Team Providers Care Well Tester Name Role Phone Poly Copeland MD Primary Care Provider [phone] Encounter Details Date Type Department Care Team (Late st Contact Info) Description 03/30/2017 Notes Only Hematology Oncology at [address] [phone] Jillian Villalobos MSW OFFICE OF CARE MANAGEMENT Social History Tobacco Use Types Packs/Day Years Used Date Smoking Tobacco: Former Sex and Gender Information Value Date Recorded Sex Assigned at Not on file Gender Identity Female 10/25/2020 5:11 AM EST Sexual Orientation Not on file documented as of this encounter Progress Notes * Jillian Villalobos MSW - 03/30/2017 11:26 AM EDT Reason for Referral: Brief assessment of social and emotional needs. Met with pt and granddaughter Cherri during infusion today. Social Supports: Pt is x 4 years. She has a son and daughter in law in [place]. She has several grandchildren and a great grand son. Living Situation/Daily Activities/Transportation: Pt lives in her own home and manages her daily chores and activities. She does not expect any problems with transportation. 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 She has medicare A & B. She has applied for financial assistance through [facility]. She has been approved for financial assistance at [facility]. Advance Directives: Pt has completed her [...] on filedocumented in this encounter Care Teams Well Tester Relationship Specialty Start Date End Date Poly Copeland MD [address] [place] [address] PCP - General 09/15/10 documented as of this encounter
--- OUTSIDE RECORDS SUMMARY | 2024-09-14 12:48 | XMS_ITS | Referral Summary ---
Author Organization [facility] Address [address] [place] [address] Care Team Providers Care Hydraulic Jack Mechanic Name Role Phone Poly Copeland MD Primary Care Provider [phone] Social History Tobacco Use Types Packs/Day Years [...] Treatment Not on file Insurance Care Teams Hydraulic Jack Mechanic Relationship Specialty Start Date End Date Poly Copeland MD [address] [place] [address] PCP - General 10/29/09
--- OUTSIDE RECORDS SUMMARY | 2024-09-14 12:48 | XMS_ITS | Encounter Summary ---
Author Organization [facility] Address [address] [place] [address] Care Team Providers Care Contract Loader Name Role Phone Poly Copeland MD Primary Care Provider [phone] Encounter Details Date Type Department Care Team (Late st Contact Info) Description 11/13/2019 Lab Requisition [facility] Pathology & Laboratory Medicine - [facility] [address] [place] [address] Unknown, Provider, Social History Tobacco Use Types [...] 0.8 See Note ng/mL 11/14/2019 10:16 EST [facility] Comment: % Distribution [...] ORDERA BLES Final Result Performing Organization Address City/State/[facility] Co de Phone Number [facility] [address] [place] [address] documented in this encounter Visit Diagnoses Not on filedocumented in this encounter Care Teams Contract Loader Relationship Specialty Start Date End Date Poly Copeland MD [address] [place] [address] PCP - General 10/29/09 documented as of this encounter
--- OUTSIDE RECORDS SUMMARY | 2024-09-14 12:48 | XMS_ITS | Encounter Summary ---
Author Organization [facility] [place] [address] Care Team Providers Care Research Professor Of Biostatistics Name Role Phone Poly Copeland MD Primary Care Provider [phone] Encounter Details Date Type Department Care Team (Latest Contact Info) Description 01/23/2017 12:15 AM EDT - 01/23/2017 11:59 PM EDT Hospital Encounter Radiology Library at [facility] [place] [phone] Landry Ng MD [facility] HEMATOLOGY [place] [address] Pain Discharge Disposition: Home Social History Tobacco [...] FILM LIBRARY ORD ERABLES Performing Organization Address City/State/[facility] Co de Phone Number [place], [place] documented in this encounter Visit Diagnoses Diagnosis Pain Generalized pain documented in this encounter Care Teams Research Professor Of Biostatistics Relationship Specialty Start Date End Date Poly Copeland MD [address] [place] [address] PCP - General 09/15/10 documented as of this encounter
--- OUTSIDE RECORDS SUMMARY | 2024-09-14 12:48 | XMS_ITS | Encounter Summary ---
Author Organization [facility] Address [facility] [place] [address] Care Team Providers Care Slug Press Operator Name Role Phone Poly Copeland MD Primary Care Provider [phone] Encounter Details Date Type Department Care Team (Late st Contact Info) Description 01/21/2009 [place] [address] Katrina Holt MD [facility] [address] [place] [address] Social History Tobacco Use Types Packs/Day Years [...] 12:02 PM EDT) Surgical Pathology Report - [id number] ? Location: OPW The signing pathologist has (i) examined the relevant preparation(s) for the specimen(s) and (ii) rendered or confirmed the diagnosis(es). . ?Pathology Surgical Pathology Final Report Clinical Information Specimen Submitted: A - Left breast SBX 10 gauge Clinical History: Four calcs L breast Clinical Diagnosis: DCIS, FCD Report to: Poly Copeland MD [facility] [address] [place] [address] Gross Description Specimen: ?Received in two containers. [...] MD PATHOLOG Y/CYTOLOGY ORDERABLES Performing Organization Address City/State/[facility] Co de Phone Number [facility] documented in this encounter Visit Diagnoses Not on filedocumented in this encounter Care Teams Slug Press Operator Relationship Specialty Start Date End Date Poly Copeland MD [address] [place] [address] PCP - General 09/15/10 documented as of this encounter
--- OUTSIDE RECORDS SUMMARY | 2024-09-14 12:48 | XMS_ITS | Encounter Summary ---
Author Organization [facility] Address [address] [place] [address] Care Team Providers Care Dressmaker Helper Name Role Phone Poly Copeland MD Primary Care Provider [phone] Encounter Details Date Type Department Care Team (Late st Contact Info) Description 08/11/2011 Results Only [facility] Laboratory Services - [facility] ([facility]) [address] [place], [place] [address] Poly Copeland MD [address] [place] [address] [address] [place] [address] Social History Tobacco Use Types [...] ? KELLY QUIÑONES ? Accession #: ? [id number] ? : ? 1940 (Age: 71) ??F [...] PATHOLOGY ORDERABLES Final Result Performing Organization Address City/State/[facility] Co de Phone Number [facility] [address] [place] [address] documented in this encounter Visit Diagnoses Not on filedocumented in this encounter Care Teams Dressmaker Helper Relationship Specialty Start Date End Date Poly Copeland MD [address] [place] [phone] PCP - General 10/29/09 documented as of this encounter
--- OUTSIDE RECORDS SUMMARY | 2024-09-14 12:48 | XMS_ITS | Encounter Summary ---
Author Organization [facility] [place] [address] Care Team Providers Care Banquet Coordinator Name Role Phone Poly Copeland MD Primary Care Provider [phone] Encounter Details Date Type Department Care Team (Latest Contact Info) Description 01/18/2017 Hospital Encounter Radiology Library at [facility] [place] [phone] Tucker Calle MD [facility] [place] [address] Discharge Disposition: Home Social History Tobacco Use [...] Calle MD IMG FILM LIBRARY ORD ERABLES [place], [place] documented in this encounter Visit Diagnoses Not on filedocumented in this encounter Care Teams Banquet Coordinator Relationship Specialty Start Date End Date Poly Copeland MD [address] [place] [address] PCP - General 09/15/10 documented as of this encounter
--- OUTSIDE RECORDS SUMMARY | 2024-09-14 12:48 | XMS_ITS | Encounter Summary ---
Author Organization [facility] [place] [address] Care Team Providers Care Stunt Performer Name Role Phone Poly Copeland MD Primary Care Provider Encounter Details Date Type Department Care Team (Late st Contact Info) Description 04/01/2017 Orders Only Hematology/Oncology at [address] [phone] Raffi Del Toro MD [facility] [place] [address] Malignant neoplasm of ascending colon Social History [...] colon documented in this encounter Care Teams Stunt Performer Relationship Specialty Start Date End Date Poly Copeland MD [address] [place] [address] PCP - General 09/15/10 documented as of this encounter
--- OUTSIDE RECORDS SUMMARY | 2024-09-14 12:48 | XMS_ITS | Encounter Summary ---
Author Organization [facility] [place] [address] Care Team Providers Care Ash Kier Boiler Name Role Phone Poly Copeland MD Primary Care Provider [phone] Encounter Details Date Type Department Care Team (Latest Contact Info) Description 08/28/2012 - 08/28/2012 11:59 PM EST Hospital Encounter Radiology Library at [facility] [place] [address] Tucker Calle MD [facility] [place] [address] Screening breast examination Discharge Disposition: Home Social [...] Calle MD IMG FILM LIBRARY ORD ERABLES [place], [place] documented in this encounter Visit Diagnoses Diagnosis Screening breast examination Other screening breast examination documented in this encounter Care Teams Ash Kier Boiler Relationship Specialty Start Date End Date Poly Copeland MD [address] [place] [address] PCP - General 09/15/10 documented as of this encounter
--- OUTSIDE RECORDS SUMMARY | 2024-09-14 12:48 | XMS_ITS | Encounter Summary ---
Author Organization [facility] Address [address] [place] [address] Care Team Providers Care Electronics Processor Name Role Phone Poly Copeland MD Primary Care Provider [phone] Encounter Details Date Type Department Care Team (Late st Contact Info) Description 04/24/2022 Lab Requisition [facility] Pathology & Laboratory Medicine - [address] [address] Outr Resulting Lab, Provider Social History Tobacco [...] Lyme Ab Negative Negative 04/26/2022 11:53 EDT [facility] Blood VENOUS BLOOD / Unknown 04/24/2022 9:27 EDT 04/25/2022 18:29 EDT us Provider Outr Resulting Lab IMMUNOLOGY AND SEROL OGY ORDERABLES Final Result [facility] [address] [place] [address] documented in this encounter Visit Diagnoses Not on filedocumented in this encounter Care Teams Electronics Processor Relationship Specialty Start Date End Date Poly Copeland MD [address] [place] [address] PCP - General 10/29/09 documented as of this encounter
--- OUTSIDE RECORDS SUMMARY | 2024-09-14 12:48 | XMS_ITS | Encounter Summary ---
Author Organization [facility] Address [facility] [place] [address] Care Team Providers Care Mining Engineering Technologist Name Role Phone Poly Copeland MD Primary Care Provider [phone] Encounter Details Date Type Department Care Team (Latest Contact Info) Description 12/23/2015 - 12/23/2015 11:59 PM EST Hospital Encounter Radiology Library at [facility] [place] [address] Tucker Calle MD [facility] [place] [address] Screening breast examination Discharge Disposition: Home Social [...] Calle MD IMG FILM LIBRARY ORD ERABLES [place], [place] documented in this encounter Visit Diagnoses Diagnosis Screening breast examination Other screening breast examination documented in this encounter Care Teams Mining Engineering Technologist Relationship Specialty Start Date End Date Poly Copeland MD [address] [place] [address] PCP - General 09/15/10 documented as of this encounter
--- OUTSIDE RECORDS SUMMARY | 2024-09-14 12:48 | XMS_ITS | Encounter Summary ---
Author Organization [facility] [place] [address] Care Team Providers Care Take Away Worker Name Role Phone Poly Copeland MD Primary Care Provider [phone] Encounter Details Date Type Department Care Team (Latest Contact Info) Description 02/22/2017 - 02/22/2017 11:59 PM EDT Hospital Encounter Radiology Library at [facility] [place] [place] [address] Landry Ng MD [facility] [place] [address] Pain Discharge Disposition: Home Social History Tobacco [...] DX Abdomen (02/22/2017 12:00 AM EDT) Narrative [facility] - 02/22/2017 10:29 AM EDT This exam is for storage only and is auto-finalizing. Landry Ng MD IMG FILM LIBRARY ORD ERABLES Performing Organization Address City/State/[facility] Co de Phone Number [place], [place] documented in this encounter Visit Diagnoses Diagnosis Pain Generalized pain documented in this encounter Care Teams Take Away Worker Relationship Specialty Start Date End Date Poly Copeland MD [address] [place] [address] PCP - General 09/15/10 documented as of this encounter
--- OUTSIDE RECORDS SUMMARY | 2024-09-14 12:48 | XMS_ITS | Encounter Summary ---
Author Organization [facility] [place] [address] Care Team Providers Care Residential Treatment Staff Name Role Phone Poly Copeland MD Primary Care Provider [phone] Encounter Details Date Type Department Care Team (Late st Contact Info) Description 03/14/2017 Telephone Hematology/Oncology at [address] [phone] Chip Rosas Social History Tobacco [...] on filedocumented in this encounter Care Teams Residential Treatment Staff Relationship Specialty Start Date End Date Poly Copeland MD [address] [place] [address] PCP - General 09/15/10 documented as of this encounter
--- OUTSIDE RECORDS SUMMARY | 2024-09-14 12:48 | XMS_ITS | Encounter Summary ---
Author Organization [facility] [place] [address] Care Team Providers Care Manager Gift Name Role Phone Poly Copeland MD Primary Care Provider [phone] Encounter Details Date Type Department Care Team (Latest Contact Info) Description 08/17/2011 - 08/17/2011 11:59 PM EDT Hospital Encounter Radiology Library at [facility] [address] Tucker Calle MD [facility] [place] [address] Screening breast examination Discharge Disposition: Home Social [...] Calle MD IMG FILM LIBRARY ORD ERABLES [place], [place] documented in this encounter Visit Diagnoses Diagnosis Screening breast examination Other screening breast examination documented in this encounter Care Teams Manager Gift Relationship Specialty Start Date End Date Poly Copeland MD [address] [place] [address] PCP - General 09/15/10 documented as of this encounter
--- OUTSIDE RECORDS SUMMARY | 2024-09-14 12:48 | XMS_ITS | Encounter Summary ---
Author Organization [facility] [place] [address] Care Team Providers Care Assistive Technology Trainer Name Role Phone Poly Copeland MD Primary Care Provider [phone] Encounter Details Date Type Department Care Team (Late st Contact Info) Description 04/07/2017 Telephone Hematology/Oncology at [address] [address] Chip Rosas Social History Tobacco [...] on filedocumented in this encounter Care Teams Assistive Technology Trainer Relationship Specialty Start Date End Date Poly Copeland MD [address] [place] [address] PCP - General 09/15/10 documented as of this encounter
--- OUTSIDE RECORDS SUMMARY | 2024-09-14 12:48 | XMS_ITS | Encounter Summary ---
Author Organization [facility] Address [address] [place] [address] Care Team Providers Care Mixed Crop Farmer Name Role Phone Poly Copeland MD Primary Care Provider [phone] Encounter Details Date Type Department Care Team (Late st Contact Info) Description 11/06/2021 Lab Requisition [facility] Pathology & Laboratory Medicine - [facility] [address] [place], [place] [id number] Outr Resulting Lab, Provider Social History Tobacco [...] 1.1 See Note ng/mL 11/06/2021 22:41 EST [facility] [...] S ORDERABLES Final Result Performing Organization Address City/State/[facility] Co de Phone Number [facility] [address] [place] [address] documented in this encounter Visit Diagnoses Not on filedocumented in this encounter Care Teams Mixed Crop Farmer Relationship Specialty Start Date End Date Poly Copeland MD [address] [place] [address] PCP - General 10/29/09 documented as of this encounter
--- OUTSIDE RECORDS SUMMARY | 2024-09-14 12:48 | XMS_ITS | Encounter Summary ---
Author Organization [facility] Address [address] [place] [address] Care Team Providers Care Cushion Assembler Name Role Phone Poly Copeland MD Primary Care Provider [phone] Encounter Details Date Type Department Care Team (Late st Contact Info) Description 09/10/2019 Lab Requisition [facility] Pathology & Laboratory Medicine - [facility] [address] [place] [address] Unknown, Provider, Social History Tobacco Use Types [...] 1.3 See Note ng/mL 09/11/2019 10:42 EST [facility] Comment: % Distribution [...] & BLOOD GAS ORDERA BLES Final Result [facility] [address] [place] [address] documented in this encounter Visit Diagnoses Not on filedocumented in this encounter Care Teams Cushion Assembler Relationship Specialty Start Date End Date Poly Copeland MD [address] [place] [address] PCP - General 10/29/09 documented as of this encounter
--- OUTSIDE RECORDS SUMMARY | 2024-09-14 12:48 | XMS_ITS | Encounter Summary ---
Author Organization [facility] [place] [address] Care Team Providers Care Maintenance Operator Name Role Phone Poly Copeland MD Primary Care Provider [phone] Encounter Details Date Type Department Care Team (Late st Contact Info) Description 09/30/2010 11:00 AM EST Follow[place] [address] James Gonzalez MD [facility] [place] [address] Discharge Disposition: Home Social History Tobacco Use [...] on filedocumented in this encounter Care Teams Maintenance Operator Relationship Specialty Start Date End Date Poly Copeland MD [address] [place] [address] [address] [place] [address] PCP - General 09/15/10 documented as of this encounter
--- OUTSIDE RECORDS SUMMARY | 2024-09-14 12:48 | XMS_ITS | Encounter Summary ---
Author Organization [facility] Address [address] [place] [address] Care Team Providers Care Steel Erector Apprentice Name Role Phone Poly Copeland MD Primary Care Provider [phone] Encounter Details Date Type Department Care Team (Late st Contact Info) Description 12/30/2021 Lab Requisition [facility] Pathology & Laboratory Medicine - [facility] [address] [place] [address] Morro Alves MD [address] [place] [address] Encounter for screening for malignant neoplasm [...] explore management options, if applicable. 12/31/2021 11:01 [facility] Final Diagnosis A. COLON, TRANSVERSE, POLYP, BIOPSY: - Sessile serrated adenoma. B. RECTUM, POLYP, BIOPSY: - Hyperplastic polyp. 12/31/2021 11:01 [facility] Attestation By the signature below, the attending physician certifies that they have 1) personally conducted a gross and/or microscopic examination of the described specimen(s), and/or personally interpreted the results of laboratory testing of the described specimen(s), and 2) personally rendered or confirmed the above diagnosis. 12/31/2021 11:01 [facility] at [address] Clinical History Hx colon cancer/screening; clinical diagnosis code: Z12.11 12/31/2021 11:01 [facility] Gross Description A. Received [...] B1. SARAH MARCUM(ASCP) 12/30/2021 18:35 12/31/2021 11:01 [facility] Performing Lab [facility] 12/31/2021 11:01 [facility] Scanned Images 12/31/2021 11:01 [facility] Tissue SPECIMEN FROM RECTUM / Unknown 12/30/2021 12:54 EST 12/30/2021 16:40 EST Tissue specimen (specimen) SPECIMEN FROM RECTUM / Unknown 12/30/2021 12:54 EST 12/30/2021 16:40 EST us Morro Alves MD PATHOLOGY ORDERABLES Fin al Result [facility] [address] [place] [address] documented in this encounter Visit Diagnoses Diagnosis Encounter for screening for malignant neoplasm of colon Special screening for malignant neoplasms, colon documented in this encounter Care Teams Steel Erector Apprentice Relationship Specialty Start Date End Date Poly Copeland MD [address] [place] [address] PCP - General 10/29/09 documented as of this encounter
--- OUTSIDE RECORDS SUMMARY | 2024-09-14 12:48 | XMS_ITS | Encounter Summary ---
Author Organization [facility] Address [facility] [place] [address] Care Team Providers Care Automation Engineering Manager Name Role Phone Poly Copeland MD Primary Care Provider [phone] Encounter Details Date Type Department Care Team (Late st Contact Info) Description 03/25/2017 1:00 PM EDT Office Visit Hematology/Oncology at [address] [address] Raffi Del Toro MD [facility] [place] [address] Malignant neoplasm of ascending colon; Drug-induced nausea [...] B. 01/23/17 - Right hemicolectomy Path ([facility] review) - CONSULTATION CASE Outside slide(s) labeled [id number], collection date 01/23/2017. Ascending colon, cecum, terminal [...] home. 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
--- OUTSIDE RECORDS SUMMARY | 2024-09-14 12:48 | XMS_ITS | Encounter Summary ---
Author Organization [facility] Address [facility] [place] [address] Care Team Providers Care Utility Assembler Name Role Phone Poly Copeland MD Primary Care Provider [phone] Encounter Details Date Type Department Care Team (Late st Contact Info) Description 03/12/2009 Orders [place] [address] James Gonzalez MD [facility] [place] [address] Social History Tobacco Use Types Packs/Day Years [...] (03/12/2009 6:45 PM EDT) Surgical Pathology Report [id number] ? Location: [facility] The signing pathologist has (i) examined the [...] ?Absent (Present / Absent) Prior Bx's correlation: [id number] . Diagnosis Other findings: ? Fibrocystic disease [...] diagnosis. BARON NAVARRO 03/12/2009 6:45 PM EDT Jaems Gonzalez MD PATHOLOGY/CYTOLOGY ORDERABLES Performing Organization Address City/State/[facility] Co ak Phone Number BARON NAVARRO documented in this encounter Visit Diagnoses Not on filedocumented in this encounter Care Teams Utility Assembler Relationship Specialty Start Date End Date Poly Copeland MD [address] [place] [address] PCP - General 09/15/10 documented as of this encounter
--- OUTSIDE RECORDS SUMMARY | 2024-09-14 12:48 | XMS_ITS | Encounter Summary ---
Author Organization [facility] Address [address] [place] [address] Care Team Providers Care Store Stocker Name Role Phone Poly Copeland MD Primary Care Provider [phone] Encounter Details Date Type Department Care Team (Latest Contact Info) Description 01/23/2017 13:33 EDT - 01/23/2017 23:59 EDT Hospital Encounter [address] [address] Unknown, Provider, MD Discharge Disposition: Home or [...] Code Departure Means Destination Home or Self Snf documented in this encounter Plan of Treatment Not on file documented as of this encounter Visit Diagnoses Not on filedocumented in this encounter Care Teams Store Stocker Relationship Specialty Start Date End Date Poly Copeland MD [address] [place] [address] [address] [place] [address] PCP - General 10/29/09 documented as of this encounter
--- OUTSIDE RECORDS SUMMARY | 2024-09-14 12:48 | XMS_ITS | Encounter Summary ---
Author Organization [facility] Address [facility] [place] [address] Care Team Providers Care Cash Posting Representative Name Role Phone Poly Copeland MD Primary Care Provider [phone] Encounter Details Date Type Department Care Team (Latest Contact Info) Description 01/18/2017 - 01/18/2017 11:59 PM EDT Hospital Encounter Radiology Library at [facility] [place] [address] Tucker Calle MD [facility] [place] [address] Screening breast examination Discharge Disposition: Home Social [...] Calle MD IMG FILM LIBRARY ORD ERABLES [place], [place] documented in this encounter Visit Diagnoses Diagnosis Screening breast examination Other screening breast examination documented in this encounter Care Teams Cash Posting Representative Relationship Specialty Start Date End Date Poly Copeland MD [address] [place] [address] PCP - General 09/15/10 documented as of this encounter
--- OUTSIDE RECORDS SUMMARY | 2024-09-14 12:48 | XMS_ITS | Encounter Summary ---
Author Organization [facility] [place] [address] Care Team Providers Care Instructional Specialist Name Role Phone Poly Copeland MD Primary Care Provider Encounter Details Date Type Department Care Team (Late st Contact Info) Description 07/30/2011 Orders Only [place] [address] James Gonzalez MD [facility] [place] [address] Breast cancer (Primary Dx) Social History Tobacco [...] site documented in this encounter Care Teams Instructional Specialist Relationship Specialty Start Date End Date Poly Copeland MD [address] [place] [address] PCP - General 09/15/10 documented as of this encounter
--- OUTSIDE RECORDS SUMMARY | 2024-09-14 12:48 | XMS_ITS | Encounter Summary ---
Author Organization [facility] Address [facility] [place] [address] Care Team Providers Care Ten Pin Bowling Centre Manager Name Role Phone Poly Copeland MD Primary Care Provider [phone] Encounter Details Date Type Department Care Team (Latest Contact Info) Description 03/18/2017 - 03/18/2017 11:59 PM EDT Hospital Encounter Radiology Library at [facility] [place] [address] Raffi Del Toro MD [facility] [place] [address] Pain Discharge Disposition: Home Social History Tobacco [...] CT Chest (03/18/2017 12:00 AM EDT) Narrative [facility] - 03/18/2017 5:16 PM EDT This exam is for storage only and is auto-finalizing. Raffi Del Toro MD IMG FILM LIBRARY ORD ERABLES [place], [place] * SCAN DOC: LAB (03/18/2017 12:00 [...] pain documented in this encounter Care Teams [place] Manager Relationship Specialty Start Date End Date Poly Copeland MD [address] [place] [address] PCP - General 09/15/10 documented as of this encounter
--- OUTSIDE RECORDS SUMMARY | 2024-09-14 12:48 | XMS_ITS | Encounter Summary ---
Author Organization [facility] [place] [address] Care Team Providers Care Cone Classifier Tender Name Role Phone Poly Copeland MD Primary Care Provider [phone] Encounter Details Date Type Department Care Team (Late st Contact Info) Description 07/01/2004 Orders Only Dermatology at [place] [address] [facility] [place] [address] Braden Gerber MD [address], [place] [address] Social History Tobacco Use Types Packs/Day Years [...] (07/01/2004 6:53 PM EDT) Surgical Pathology Report [id number] ? 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 CR-0 07/03/04 [facility] 07/03/04 Verified by: ? Eduardo Cody [...] on filedocumented in this encounter Care Teams Cone Classifier Tender Relationship Specialty Start Date End Date Poly Copeland MD [address] [place] [address] PCP - General 09/15/10 documented as of this encounter
--- OUTSIDE RECORDS SUMMARY | 2024-09-14 12:48 | XMS_ITS | Encounter Summary ---
Author Organization [facility] [place] [address] Care Team Providers Care Quality Control Name Role Phone Poly Copeland MD Primary Care Provider [phone] Encounter Details Date Type Department Care Team (Latest Contact Info) Description 02/24/2017 3:21 PM EDT - 02/24/2017 11:59 PM EDT Hospital [place] [address] Discharge Disposition: Home Social History Tobacco Use [...] Pathology Report (02/24/2017 4:16 PM EDT) Pathologist [facility] Final Diagnosis [id number] ?Location: [facility] The signing pathologist has (i) examined the relevant preparation(s) for the specimen(s) and (ii) rendered or confirmed the diagnosis(es). . ?Surgical Pathology DIAGNOSIS CONSULTATION CASE Outside slide(s) labeled [id number], collection date 01/23/2017. Ascending colon, cecum, terminal [...] 1 regional lymph node Tumor Block(s): ?? [id number] A-10, A-11, A-20 Normal Block(s): ?? [id number] A-01 Comments . DIAGNOSIS ? Per outside [...] ??02/28/2017 ?Pathologist ADDITIONAL STUDIES Whole slide scan: [id number] A-10, 11, 12, 13, 14, 15, 20, 22, 27 CLINICAL INFORMATION Specimen Submitted: CONSULTATION CASE A - 27 slide(s) labeled [id number], collection date 01/23/2017. [id number] Report to: [facility] Surgical Pathology Department [facility], [facility], [address]nd Floor [address] [place] [id number] SPECIMEN PROCESSING [facility] ([facility]) pathology slide(s) are reviewed. ??Refer to Diagnosis and Specimen Submitted for specific case information. For the full text of the [facility] report(s) please refer to Non-DH Documentation Pathology in the electronic health record (eDH). 02/28/2017 6:27 PM EDT [facility] Consult Case 02/24/2017 4:16 PM EDT 02/24/2017 4:16 PM EDT Raffi Del Toro MD PATHOLOGY/CYTOLOGY O REBECCA [facility] [place] [address] * Molecular Genetics Report (02/24/2017 1:54 PM EDT) Molecular Report [id number] ?Location: [facility] The signing pathologist has (i) examined the relevant preparation(s) for the specimen(s) and (ii) rendered or confirmed the diagnosis(es). . ?Molecular Genetics RESULTS CONSULTATION CASE Outside labeled [id number], collection date 01/23/2017. [facility] #: [id number] Report to: [facility] Surgical Pathology Department [facility], [facility], 2nd Floor [address] [place], [place] ??[address] Please refer to Surgical Pathology Report [id number] for final pathology diagnosis. INDICATION FOR STUDY: ?? 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 [id number] [id number] Solid Tumor Fusion Panel Analysis: ?? Examination of RNA extracted from formalin-fixed paraffin-embedded tumor tissue for somatic mutation analysis. Results: ?? The following gene fusions were identified in the submitted tissue: PTPRK - > RSPO3 Interpretation: ?? After review of the pathology report and slides, the specimen ([id number]) was selected for fusion analysis using a panel of 53 partner genes. Therapeutic options related to the presence or absence of mutations should be carefully assessed. ??Availability of other therapeutic indications and clinical trials may be possible. These results may indicate clinical trial eligibility; consider presenting at the [facility] Molecular Tumor Board for further [...] libraries was performed by a fully trained [facility] technologist using a clinically validated [employer] Solid Tumor Panel assay protocol. ??A total of five Char Conveyor Tender Checkpoints (QC Checkpoints) were established: (1) QC1: [...] reference genome build, and analyzed using the [employer] ?[employer] Software. ??Variant were reviewed and curated using both peer-reviewed literature and publicly available databases. ??Sources are listed below and in the references section of this report. http://www.mycance rgenome.org https://ckb.evita.or g/gene/grid https://targetedca ncercare.SPIRIT Navigationr Precision Biopsy.org/My-Trial-Gu chris.aspx The 53 genes assessed by the Solid Tumor Fusion assay include: ? AKT3, ALK, HCCOKM18, JACKY, BRAF, BRD3, BRD4, EGFR, ERG, ESR1, [...] and Advanced Technology ? (CGAT) Laboratory at [facility]. It has not been cleared or approved [...] Cancer 2015;15:371-381. Reviewed by: Myrna Villarreal, PhD, [facility]-Hand Engraver ?04/15/17 12:15 Reviewed by: Raffi Colon, PhD, [facility], Director-[facility] ([facility], 04/22/17 12:14) Electronically signed by: ??Darlene Balckmon, Raffi So Verified: ??04/22/2017 ?Director, Molecular Pathology ?Molecular Genetics RESULTS CONSULTATION CASE Outside labeled [id number], collection date 01/23/2017. [facility] #: [id number] Report to: [facility] Surgical Pathology Department [facility], [facility], 2nd Floor [address] [place] [id number] . RESULTS Please refer to Surgical Pathology Report [id number] for final pathology diagnosis. INDICATION FOR STUDY: ?? 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 [id number] [id number] Analysis: ??Examination of DNA extracted from formalin-fixed paraffin-embedded tumor tissue for somatic mutation analysis. Results: ??The following gene variants were identified in the submitted tissue: CLINICALLY ACTIONABLE VARIANTS: BRAF: ??MUTATION c.1799T >A p.V600E Exon 15 HRAS: ??NEGATIVE KRAS: ??NEGATIVE NRAS: ??NEGATIVE OTHER DETECTED VARIANTS: N/A Interpretation: ?? After review of the pathology report and slides, the specimen ([id number] [id number]) was selected for mutation analysis from [...] trial eligibility; please consider presenting at the [facility] Molecular Tumor Board for further interpretation and discussion by contacting ??Glo ??. For additional information on clinically actionable variants, please visit the following websites: http://www.mycance rgenome.org/conten t/disease/colorect al-cancer http://www.nccn.or g/professionals/ph ysician_gls/nichole_anthony jacob.asp Methods: ??Genomic DNA was extracted from formalin-fixed paraffin-embedded tumor tissue. DNA sequencing was performed using the 50-gene Cancer Hotspot Panel ([employer]ang[employer]ing) for each gene reported. ??Sequences were aligned [...] and Advanced Technology ? (CGAT) Laboratory at [facility]. It has not been cleared or approved [...] Sep 2013;13:1-8. Reviewed by: Myrna Villarreal, PhD, CGAT-Hand Engraver ?03/25/17 17:23 Electronically signed by: ??Radames Mack MD Verified: ??03/29/2017 ?Pathologist [facility] 02/24/2017 1:54 PM EDT Raffi Del Toro MD PATHOLOGY/CYTOLOGY O RDERABLES [facility] [place] [address] documented in this encounter Visit Diagnoses Not on filedocumented in this encounter Care Teams Quality Control Relationship Specialty Start Date End Date Poly Copeland MD [address] [place] [address] PCP - General 09/15/10 documented as of this encounter
--- OUTSIDE RECORDS SUMMARY | 2024-09-14 12:48 | XMS_ITS | Encounter Summary ---
Author Organization [facility] Address [address] [place] [address] Care Team Providers Care Workers' Compensation Mediator Name Role Phone Poly Copeland MD Primary Care Provider [phone] Encounter Details Date Type Department Care Team (Late st Contact Info) Description 04/24/2022 Lab Requisition [facility] Pathology & Laboratory Medicine - [facility] [address] [place], [place] [address] Outr Resulting Lab, Provider Social History Tobacco [...] MICROBIOLOGY - GENER AL ORDERABLES Final Result [facility] [address] [place] [address] * COVID-19 TESTING (04/24/2022 9:21 EDT) COVID-19 rt-PCR Result Negative Negative 04/25/2022 13:11 EDT [facility] Comment: This test [...] performed using the tre SARS-CoV-2 assay ([employer] on the Tre 6800 System Performing Lab Tre [address] [facility] Lab 04/25/2022 13:11 EDT [facility] Swab 04/24/2022 9:21 EDT 04/24/2022 21:51 EDT us Provider Outr Resulting Lab MICROBIOLOGY - GENER AL ORDERABLES Final Result [facility] [address] [place] [address] documented in this encounter Visit Diagnoses Not on filedocumented in this encounter Care Teams Workers' Compensation Mediator Relationship Specialty Start Date End Date Poly Copeland MD [address] [place] [address] PCP - General 10/29/09 documented as of this encounter
--- OUTSIDE RECORDS SUMMARY | 2024-09-14 12:48 | XMS_ITS | Encounter Summary ---
Author Organization [facility] Address [address] [place] [address] Care Team Providers Care Package Pick Up Name Role Phone Poly Copeland MD Primary Care Provider [phone] Encounter Details Date Type Department Care Team (Late st Contact Info) Description 12/29/2010 Results Only [facility] [phone] Marcio Em MD [address] [address] Social History Tobacco Use Types [...] ? KELLY QUIÑONES ? Accession #: ? [id number] ? : ? 1940 (Age: 70) ??F [...] MD PATHOLOGY ORDERABLES Final Re sult [facility] [address] [place] [address] documented in this encounter Visit Diagnoses Not on filedocumented in this encounter Care Teams Package Pick Up Relationship Specialty Start Date End Date Poly Copeland MD [address] [place] [address] PCP - General 10/29/09 documented as of this encounter
--- OUTSIDE RECORDS SUMMARY | 2024-09-14 12:48 | XMS_ITS | Encounter Summary ---
Author Organization [facility] [place] [address] Care Team Providers Care Tension Machine Operator Name Role Phone Poly Copeland MD Primary Care Provider [phone] Encounter Details Date Type Department Care Team (Latest Contact Info) Description 02/02/2017 - 02/02/2017 11:59 PM EDT Hospital Encounter Radiology Library at [facility] [place] [place] [address] Art Guerra MD [facility] [place] [address] Pain Discharge Disposition: Home Social History Tobacco [...] Guerra MD IMG FILM LIBRARY ORD ERABLES [place], [place] documented in this encounter Visit Diagnoses Diagnosis Pain Generalized pain documented in this encounter Care Teams Tension Machine Operator Relationship Specialty Start Date End Date Poly Copeland MD [address] [place] [address] PCP - General 09/15/10 documented as of this encounter
--- OUTSIDE RECORDS SUMMARY | 2024-09-14 12:48 | XMS_ITS | Encounter Summary ---
Author Organization [facility] Address [facility] [place] [address] Care Team Providers Care Station Mechanic Helper Name Role Phone Poly Copeland MD Primary Care Provider [phone] Encounter Details Date Type Department Care Team (Late st Contact Info) Description 02/19/2009 Orders Only [place] [address] James Gonzalez MD [facility] [address] [place] [address] Social History Tobacco Use Types Packs/Day Years [...] 3:10 PM EDT) Surgical Pathology Report - [id number] ? Location: [facility] The signing pathologist has (i) examined the [...] sections of lesion from slice XI; (19) liability claims representative section of slice XII; (20-21) liability claims representative sections of slice XIII; (22) liability claims representative section of slice XIV; (23) liability claims representative section of slice XVI. ??(R23) ??aje/LCS [...] disease Nipple Involvement: ? NA Correlation Bx's/Cytology: [id number] Other findings: ? 1. Fibrocystic disease with microcystic ? change, fibrosis and apocrine metaplasia. ?2. Prior biopsy site. Estrogen/progestin receptors: Performed on Block A15 ?? ER immunoreactivity: ? Positive (see Diagnostic Linder*) ?? VA immunoreactivity: ? Positive (see Diagnostic Linder*) pTNM: [...] Gonzalez MD PATHOLOGY/CYTOLOGY ORDERABLES Performing Organization Address City/State/[facility] Co ut Phone Number BARON NAVARRO documented in this encounter Visit Diagnoses Not on filedocumented in this encounter Care Teams Station Mechanic Helper Relationship Specialty Start Date End Date Poly Copeland MD [address] [place] [address] PCP - General 09/15/10 documented as of this encounter
--- OUTSIDE RECORDS SUMMARY | 2024-09-14 12:48 | XMS_ITS | Encounter Summary ---
Author Organization [facility] Address [facility] [place] [address] Care Team Providers Care Plastic Panel Installer Name Role Phone Poly Copeland MD Primary Care Provider [phone] Reason for Visit * Reason Comments IV Access pump disconnect * Treatment/Therapy Plan Authorization (Routine) - Closed Specialty Diagnoses / Procedures Referred By Contac t Referred To Contact Diagnoses Malignant neoplasm of ascending colon Raffi Del Toro MD [facility] [place] [address] Referral ID Status Reason Start Date Expiration Date Visits Re quested Visits Authorized [id number] Closed 03/04/2017 03/04/2018 1 1 Encounter Details Date Type Department Care Team (Late st Contact Info) Description 04/01/2017 1:00 PM EDT Infusion Hematology Oncology at [address] [id number] Malignant neoplasm of ascending colon Social History [...] (IV) Procedure: Accessing Implanted Vascular Access Devices (064) procedure and/or Intravenous (IV) Job Aid: Adult Flushing & Catheter Care (9491) job aid for additional information regarding guidelines [...] Job Aid: Adult Flushing & Catheter Care (3469) job aid for additional information regarding guidelines and administration., Routine Given 04/01/2017 10:30 AM EDT 20 mLs documented in this encounter Care Teams Plastic Panel Installer Relationship Specialty Start Date End Date Poly Copeland MD [address] [facility] [place] [address] PCP - General 09/15/10 documented as of this encounter
--- OUTSIDE RECORDS SUMMARY | 2024-09-14 12:48 | XMS_ITS | Encounter Summary ---
Author Organization [facility] Address [address] [place] [address] Care Team Providers Care Crate Builder Name Role Phone Poly Copeland MD Primary Care Provider [phone] Encounter Details Date Type Department Care Team (Late st Contact Info) Description 10/27/2020 Lab Requisition [facility] Pathology & Laboratory Medicine - [facility] [address] [place], [place] [id number] Outr Resulting Lab, Provider Social History Tobacco [...] 1.0 See Note ng/mL 10/27/2020 20:14 EST [facility] Comment: % Distribution of CEA [...] S ORDERABLES Final Result Performing Organization Address City/State/[facility] Co de Phone Number [facility] [address] [place] [address] documented in this encounter Visit Diagnoses Not on filedocumented in this encounter Care Teams Crate Builder Relationship Specialty Start Date End Date Poly Copeland MD [address] [place] [address] PCP - General 10/29/09 documented as of this encounter
--- OUTSIDE RECORDS SUMMARY | 2024-09-14 12:48 | XMS_ITS | Encounter Summary ---
Author Organization [facility] [place] [address] Care Team Providers Care Aoc Plans Intelligence Officer Chief Name Role Phone Poly Copeland MD Primary Care Provider [phone] Encounter Details Date Type Department Care Team (Latest Contact Info) Description 01/23/2017 - 01/23/2017 12:14 AM EDT Hospital Encounter Radiology Library at [facility] [place] [address] Landry Ng MD [facility] HEMATOLOGY [place] [address] Pain Discharge Disposition: Home Social History Tobacco [...] DX Abdomen (01/23/2017 12:00 AM EDT) Narrative [facility] - 02/22/2017 10:32 AM EDT This exam is for storage only and is auto-finalizing. Landry Ng MD IMG FILM LIBRARY ORD ERABLES Performing Organization Address City/State/[facility] Co de Phone Number [place], [place] documented in this encounter Visit Diagnoses Diagnosis Pain Generalized pain documented in this encounter Care Teams Aoc Plans Intelligence Officer Chief Relationship Specialty Start Date End Date Poly Copeland MD [address] [place] [address] PCP - General 09/15/10 documented as of this encounter
--- OUTSIDE RECORDS SUMMARY | 2024-09-14 12:48 | XMS_ITS | Encounter Summary ---
Author Organization [facility] [place] [address] Care Team Providers Care Cash Person Name Role Phone Poly Copeland MD Primary Care Provider [phone] Reason for Visit * Reason Comments Breast Cancer left DCIS Encounter Details Date Type Department Care Team (Late st Contact Info) Description 10/27/2011 11:15 AM EST Follow-Up [place] [phone] James Gonzalez MD [facility] [place] [address] Breast cancer in situ (Primary Dx) Discharge [...] breast performed in July of 2011 at [facility]. This was within normal limits. The patient [...] mammogram in July, which she gets at [facility]. 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
--- OUTSIDE RECORDS SUMMARY | 2024-09-14 12:48 | XMS_ITS | Encounter Summary ---
Author Organization [facility] Address [facility] [address] Care Team Providers Care Electric Vehicle Electrician Name Role Phone Poly Copeland MD Primary Care Provider [phone] Encounter Details Date Type Department Care Team (Late st Contact Info) Description 02/25/2017 External [place] [phone] Provider, Scanning Social History Tobacco Use Types [...] on filedocumented in this encounter Care Teams Electric Vehicle Electrician Relationship Specialty Start Date End Date Poly Copeland MD [address] [place] [address] PCP - General 09/15/10 documented as of this encounter
--- OUTSIDE RECORDS SUMMARY | 2024-09-14 12:48 | XMS_ITS | Encounter Summary ---
Author Organization [facility] Address [address] [place] [address] Care Team Providers Care Wildlife Control Operator Name Role Phone Poly Copeland MD Primary Care Provider [phone] Encounter Details Date Type Department Care Team (Late st Contact Info) Description 05/11/2021 Lab Requisition [facility] Pathology & Laboratory Medicine - [facility] [address] [place], [place] [address] Outr Resulting Lab, Provider Social History Tobacco [...] <2.0 See Note ng/mL 05/11/2021 17:13 EDT [facility] Comment: % Distribution [...] & BLOOD GA S ORDERABLES Final Result [facility] [address] [place] [address] documented in this encounter Visit Diagnoses Not on filedocumented in this encounter Care Teams Wildlife Control Operator Relationship Specialty Start Date End Date Poly Copeland MD [address] [place] [address] PCP - General 10/29/09 documented as of this encounter
--- OUTSIDE RECORDS SUMMARY | 2024-09-14 12:48 | XMS_ITS | Encounter Summary ---
Author Organization [facility] Address [facility] [place] [address] Care Team Providers Care Naturopathic Oncology Provider Name Role Phone Poly Copeland MD Primary Care Provider [phone] Encounter Details Date Type Department Care Team (Latest Contact Info) Description 12/24/2014 - 12/24/2014 11:59 PM EST Hospital Encounter Radiology Library at [facility] [place] [address] Tucker Calle MD [facility] [place] [address] Screening breast examination Discharge Disposition: Home Social [...] Calle MD IMG FILM LIBRARY ORD ERABLES [place], [place] documented in this encounter Visit Diagnoses Diagnosis Screening breast examination Other screening breast examination documented in this encounter Care Teams Naturopathic Oncology Provider Relationship Specialty Start Date End Date Poly Copeland MD [address] [place] [address] PCP - General 09/15/10 documented as of this encounter
--- OUTSIDE RECORDS SUMMARY | 2024-09-14 12:48 | XMS_ITS | Encounter Summary ---
Author Organization [facility] Address [address] [place] [address] Care Team Providers Care Cutting And Splicing Supervisor Name Role Phone Poly Copeland MD Primary Care Provider [phone] Encounter Details Date Type Department Care Team (Late st Contact Info) Description 01/24/2020 Lab Requisition [facility] Pathology & Laboratory [facility] - [facility] [address] [place] [address] Unknown, Provider, Social History Tobacco Use Types [...] 1.3 See Note ng/mL 01/25/2020 10:02 EDT [facility] Comment: % Distribution of CEA [...] & BLOOD GAS ORDERA BLES Final Result [facility] [address] [place] [address] documented in this encounter Visit Diagnoses Not on filedocumented in this encounter Care Teams Cutting And Splicing Supervisor Relationship Specialty Start Date End Date Poly Copeland MD [address] [place] [address] PCP - General 10/29/09 documented as of this encounter
--- OUTSIDE RECORDS SUMMARY | 2024-09-14 12:48 | XMS_ITS | Encounter Summary ---
Author Organization [facility] Address [address] [place] [address] Care Team Providers Care Civil Engineering Intern Name Role Phone Poly Copeland MD Primary Care Provider [phone] Encounter Details Date Type Department Care Team (Late st Contact Info) Description 06/12/2018 Documentation Visit [facility] Hematology & Oncology - [facility] [address] [place], [place] [address] Sofia Bishop, [place] [address] [place], [place] [phone] Social History Tobacco Use Types Packs/Day Years [...] on filedocumented in this encounter Care Teams Civil Engineering Intern Relationship Specialty Start Date End Date Poly Copeland MD [address] [place] [phone] PCP - General 10/29/09 documented as of this encounter
--- OUTSIDE RECORDS SUMMARY | 2024-09-14 12:48 | XMS_ITS | Encounter Summary ---
Author Organization [facility] [place] [address] Care Team Providers Care Overhead Crane Truck Loader Name Role Phone Poly Copeland MD Primary Care Provider [phone] Encounter Details Date Type Department Care Team (Latest Contact Info) Description 10/25/2013 - 10/25/2013 11:59 PM EST Hospital Encounter Radiology Library at [facility] [place] [address] Tucker Calle MD [facility] [place] [address] Screening breast examination Discharge Disposition: Home Social [...] Calle MD IMG FILM LIBRARY ORD ERABLES [place], [place] documented in this encounter Visit Diagnoses Diagnosis Screening breast examination Other screening breast examination documented in this encounter Care Teams Overhead Crane Truck Loader Relationship Specialty Start Date End Date Poly Copeland MD [address] [place] [address] PCP - General 09/15/10 documented as of this encounter
--- OUTSIDE RECORDS SUMMARY | 2024-09-14 12:48 | XMS_ITS | Encounter Summary ---
Author Organization [facility] Address [facility] [place] [address] Care Team Providers Care It Support Engineer Name Role Phone Poly Copeland MD Primary Care Provider [phone] Reason for Visit * Reason Comments Chemotherapy Cycle 1, Day 1 -- Fo lfox * Treatment/Therapy Plan Authorization (Routine) - Closed Specialty Diagnoses / Procedures Referred By Contac t Referred To Contact Diagnoses Malignant neoplasm of ascending colon Raffi Del Toro MD [facility] [place] [address] Referral ID Status Reason Start Date Expiration Date Visits Re quested Visits Authorized [id number] Closed 03/04/2017 03/04/2018 1 1 Encounter Details Date Type Department Care Team (Late st Contact Info) Description 03/30/2017 9:00 AM EDT Infusion Hematology Oncology at [address] [address] Malignant neoplasm of ascending colon [...] BSA by Starla Granda RN and Radha Aylaa [facility]. REACTIONS (DESCRIPTION, TIME, INTERVENTION AND EFFECTIVENESS) none ASSESSMENT: Lesli was awake, alert and tolerated treatment well. CADD pump provided by [employer], pump was double checked by Starla Granda RN and José Luis Pritchett RN prior to connection. Pump was checked 15min after connection and 1.15 cc was infused. Note patient and grand daughter wayched the [employer] video, were given a chenmo spill kit and instructions on the workingof the pump and how to contact [employer]. Pt. chemo teaching instructions included: During clinic hours (8am-5pm Tuesday-Tuesday): pt. can call [phone] with questions or concerns. After clinic hours (5pm-8am Tuesday-Tuesday and weekends) pt can call [phone] and ask for the gun synchronizer/oncologist enthone solder stripper for Dr. Del Toro. Jhonathancarlos Ray Marco [...] mg documented in this encounter Care Teams It Support Engineer Relationship Specialty Start Date End Date Poly Copeland MD [address] [place] [address] [address] [place] [address] PCP - General 09/15/10 documented as of this encounter
--- OUTSIDE RECORDS SUMMARY | 2024-09-14 12:48 | XMS_ITS | Clinical Summary ---
Author Organization [facility] Address [address] [place] [address] Care Team Providers Care Dietary Worker Name Role Phone Poly Copeland MD Primary Care Provider [phone] Social History Tobacco Use Types Packs/Day Years [...] ( season) 2024 Insurance MEDICARE Care Teams Dietary Worker Relationship Specialty Start Date End Date Poly Copeland MD [address] [place] [address] [address] [place] [address] PCP - General 10/29/09
--- OUTSIDE RECORDS SUMMARY | 2024-09-14 12:48 | XMS_ITS | Encounter Summary ---
Author Organization [facility] Address [facility] [place] [address] Care Team Providers Care Library Circulation Technician Name Role Phone oPly Copeland MD Primary Care Provider [phone] Reason for Referral * Consultation (Routine) - Specialty Diagnoses / Procedures Referred By Rajendra alvarez Referred To Contact General Surgery Diagnoses Malignant neoplasm of ascending colon Raffi Del Toro MD [facility] [place] [address] Oc Caruso DO [address] [place] [address] Referral ID Status Reason Start Date Expiration Date Visits Requested Visits Authorized Specialty Service Requested 03/04/2017 08/31/2017 1 1 Reason for Visit * Consultation (Routine) - Closed Specialty Diagnoses / Procedures Referred By Contac t Referred To Contact Hematology and Oncology Diagnoses Colon cancer COLON CANCER Procedures TREATMENT OPTIONS Oc Caruso DO [address] [place] [address] St Hem Onc Office [address] [place] [address] Referral ID Status Reason Start Date Expiration Date Visits Re quested Visits Authorized [id number] Closed 02/22/2017 02/22/2018 1 1 Encounter Details Date Type Department Care Team (Late st Contact Info) Description 03/04/2017 3:00 PM EDT Office Visit Hematology/Oncology at [address] [address] Raffi Del Toro MD [facility] [place] [address] Malignant neoplasm of ascending colon Social History [...] review) - CONSULTATION CASE Outside slide(s) labeled [id number], collection date 01/23/2017. Ascending colon, cecum, terminal [...] home. Soc Hx: , lives alone in [place], [place] Tob - Quit 17 years ago [...] colon documented in this encounter Care Teams Library Circulation Technician Relationship Specialty Start Date End Date Poly Copeland MD [address] [address] PCP - General 09/15/10 documented as of this encounter
--- OUTSIDE RECORDS SUMMARY | 2024-09-14 12:48 | XMS_ITS | Encounter Summary ---
Author Organization [facility] [place] [address] Care Team Providers Care Electrical Controls Engineer Name Role Phone Poly Copeland MD Primary Care Provider [phone] Encounter Details Date Type Department Care Team (Late st Contact Info) Description 01/28/2017 External Results XRay at [address] [place] [phone] Provider, Scanning Social History Tobacco Use Types [...] on filedocumented in this encounter Care Teams Electrical Controls Engineer Relationship Specialty Start Date End Date Poly Copeland MD [address] [place] [address] PCP - General 09/15/10 documented as of this encounter
--- OUTSIDE RECORDS SUMMARY | 2024-09-14 12:48 | XMS_ITS | Encounter Summary ---
[place] [address] Care Team Providers Care Unit Receptionist Name Role Phone Poly Copeland MD Primary Care Provider [phone] Reason for Referral * Diagnostic Test (Routine) - Closed Specialty Diagnoses / Procedures Referred By Contgail t Referred To Contact Radiology Diagnoses Abdominal abscess Procedures IR all drainage procedures Gilmer Nunez [facility] RADIOLOGY [place] [address] [place] [address] Referral ID Status Reason Start Date Expiration Date V isits Requested Visits Authorized [id number] Closed Specialty Service Requested 02/03/2017 02/03/2018 1 1 Encounter Details Date Type Department Care Team (Late st Contact Info) Description 02/03/2017 Orders [place] [phone] Gilmer Nunez [facility] RADIOLOGY [place] [address] Abdominal abscess Social History Tobacco Use Types [...] Angio recovery room, may transfer back to [facility] when meets criteria. 2) I spoke with [...] for re-check ??(drain obstruction or incomplete drainage) Machine Iii Coremaker(s): Resident/Fellow: ??none Attending: Audi Durbin MD Procedure/Teaching Attestation: I performed the procedure. Moderate Sedation Attestation: I was present during the intraservice time as documented by the IR nurse. Art Guerra MD IMG IR ORDERABLES documented in this encounter Visit Diagnoses Diagnosis Abdominal abscess Peritoneal abscess Abdominal abscess Peritoneal abscess documented in this encounter Care Teams Unit Receptionist Relationship Specialty Start Date End Date Poly Copeland MD [address] [place] [address] PCP - General 09/15/10 documented as of this encounter
--- OUTSIDE RECORDS SUMMARY | 2024-09-14 12:48 | XMS_ITS | Encounter Summary ---
Author Organization [facility] Address [address] [place] [address] Care Team Providers Care Inpatient Auditor Name Role Phone Poly Copeland MD Primary Care Provider [phone] Encounter Details Date Type Department Care Team (Late st Contact Info) Description 05/27/2022 Lab Requisition [facility] Pathology & Laboratory Medicine - [facility] [address] [place], [place] [address] Outr Resulting Lab, Provider Social History Tobacco [...] 1.0 See Note ng/mL 05/28/2022 9:15 EDT [facility] Comment: % Distribution of [...] & BLOOD GA S ORDERABLES Final Result [facility] [address] [place] [address] documented in this encounter Visit Diagnoses Not on filedocumented in this encounter Care Teams Inpatient Auditor Relationship Specialty Start Date End Date Poly Copeland MD [address] [place] [address] PCP - General 10/29/09 documented as of this encounter
--- OUTSIDE RECORDS SUMMARY | 2024-09-14 12:48 | XMS_ITS | Encounter Summary ---
[place] [address] Care Team Providers Care Soapstoner Name Role Phone Poly Copeland MD Primary Care Provider [phone] Reason for Referral * Diagnostic Test (Routine) - Closed Specialty Diagnoses / Procedures Referred By Contac t Referred To Contact Radiology Diagnoses Abdominal abscess Procedures IR all drainage procedures [facility] [place] [address] [place] [address] Referral ID Status Reason Start Date Expiration Date V isits Requested Visits Authorized [id number] Closed Specialty Service Requested 02/03/2017 02/03/2018 1 1 Reason for Visit * Diagnostic Test (Routine) - Closed Specialty Diagnoses / Procedures Referred By Contac t Referred To Contact Radiology Diagnoses Abdominal abscess Procedures IR all drainage procedures [facility] [place] [address] [place] [address] Referral ID Status Reason Start Date Expiration Date V isits Requested Visits Authorized [id number] Closed Specialty Service Requested 02/03/2017 02/03/2018 1 1 Encounter Details Date Type Department Care Team (Latest Contact Info) Description 02/03/2017 11:38 AM EDT - 02/03/2017 11:59 PM EDT Hospital Encounter [place] [address] Art Guerra MD [facility] DR DIAGNOSTIC [place] [address] Abdominal abscess Discharge Disposition: Home Social History [...] is during regular office hours, please call [phone]. If it is after regular office hours, or on weekends or holidays, please call [phone] and ask to speak to the Aligner digital media sales consultant for Interventional Radiology. XXXX You have [...] of : 1940 AGE 76 y.o. Address: [address] [place] [phone] (home) Mobile: Referring Provider: Gilmer Nunez REASON FOR VISIT: Low Molecular Weight Heparin Reason for exam and clinical history: Right jocelyn-abdomen abscess- Ordering Dr jesusita Caruso [facility] Exam/Procedure requested: Ultrasound guided abscess drain placement [...] guided drain placement. Pt to return to [facility] following procedure. ?? Prophylactic antibiotic: None Medications [...] (TYLENOL PM ORAL) 09/30/10 * Rodrigue Borrero, ICE PLATFORM SUPERVISOR - 02/03/2017 9:05 AM EDT Images from the original note were not included. IR PRE-PROCEDURE NOTE Name: Jose Quiñones Date of : 1940 Referring Physician: Dr. Oc Caruso, [facility] Indication: Large abdominal abscess in right jocelyn-abdomen, [...] guided drain placement. Pt to return to [facility] following procedure. Patient Active Problem List Diagnosis [...] guided drain placement. Pt to return to [facility] following procedure. Prophylactic antibiotic: None Medications to hold: Lovenox Planned access site: right jocelyn-abdomen Position: supine Consent: pending arrival in IR. Gilmer Nunez IR Fellow Pager# [phone] documented in this encounter Plan of Treatment [...] Angio recovery room, may transfer back to [facility] when meets criteria. 2) I spoke with [...] for re-check ??(drain obstruction or incomplete drainage) Semi Truck Driver(s): Resident/Fellow: ??none Attending: Audi Durbin MD Procedure/Teaching Attestation: I performed the procedure. Moderate Sedation Attestation: I was present during the intraservice time as documented by the IR nurse. Art Guerra MD IMG IR ORDERABLES * (ABNORMAL) Anaerobic Culture (02/03/2017 1:20 PM EDT) Anaerobic Culture Many Bacteroides fragilis(A) [facility] Organism Bacteroides fragilis(A) [facility] Fluid specimen (specimen) 02/03/2017 1:20 PM EDT 02/03/2017 2:11 PM EDT Comment:ABDOMINAL PERIHEPATI C ABCSESS. Narrative Resulting Agency Comment Spec In Lab Oc Harryen DO MICROBIOLOGY - GENER AL ORDERABLES [facility] [place] [address] * (ABNORMAL) Body fluid culture (02/03/2017 1:20 PM EDT) Body Fluid Culture Many Escherichia coli Rare mixed Gram Positive organisms (A) [facility] Gram Stain Few White Blood Cells seen Many Gram Negative Rods seen Few Gram Positive Rods seen (A) [facility] Organism Escherichia coli(A) [facility] Organism Gram Negative Rods(A) [facility] Organism Gram Positive Rods(A) [facility] Fluid specimen (specimen) 02/03/2017 1:20 [...] DO MICROBIOLOGY - GENER AL ORDERABLES [facility] [place] [address] documented in this encounter Visit Diagnoses Diagnosis [...] mg documented in this encounter Care Teams Soapstoner Relationship Specialty Start Date End Date Poly Copeland MD [address] [facility] [address] [place] [address] PCP - General 09/15/10 documented as of this encounter
--- OUTSIDE RECORDS SUMMARY | 2024-09-14 12:48 | XMS_ITS | Encounter Summary ---
Author Organization [facility] Address [address] [place] [address] Care Team Providers Care Content Management Consultant Name Role Phone Poly Copeland MD Primary Care Provider [phone] Encounter Details Date Type Department Care Team (Late st Contact Info) Description 05/03/2022 Lab Requisition [facility] Pathology & Laboratory Medicine - [address] [address] Outr Resulting Lab, Provider Social History Tobacco [...] Date/Time Associated Diagnosis Comments LYME AB Routine 05/03/2022 10:00 EDT documented in this encounter Results * LYME AB (05/03/2022 10:00 EDT) Lyme Ab Negative Negative 05/04/2022 10:49 EDT [facility] Blood VENOUS BLOOD / Unknown 05/03/2022 10:00 EDT 05/03/2022 21:36 EDT us Provider Outr Resulting Lab IMMUNOLOGY AND SEROL OGY ORDERABLES Final Result [facility] [address] [place] [address] documented in this encounter Visit Diagnoses Not on filedocumented in this encounter Care Teams Content Management Consultant Relationship Specialty Start Date End Date Poly Copeland MD [address] [place] [address] PCP - General 10/29/09 documented as of this encounter
--- OUTSIDE RECORDS SUMMARY | 2024-09-14 12:48 | XMS_ITS | Encounter Summary ---
Author Organization [facility] [place] [address] Care Team Providers Care Supervisor Covering And Lining Name Role Phone Poly Copeland MD Primary Care Provider [phone] Reason for Visit * Reason Onset Date Comments Follow-up 03/31/2017 1st chemo f/u ca ll Encounter Details Date Type Department Care Team (Late st Contact Info) Description 03/31/2017 Telephone Hematology/Oncology at [address] [address] Ruth Mcdonald, RN Follow-up (1st [...] Toro via this note. 2. Reinforced to patient/care-housekeeping attendant to call facility 16/05 with any new/worsening signs and symptomsor concerns or questions.?? Phone number provided.?? Pt verbalized understanding and is in agreement with plan. ? documented in this encounter Plan of Treatment Not on file documented as of this encounter Visit Diagnoses Not on filedocumented in this encounter Care Teams Supervisor Covering And Lining Relationship Specialty Start Date End Date Poly Copeland MD [address] [address] [place] [address] PCP - General 09/15/10 documented as of this encounter
--- OUTSIDE RECORDS SUMMARY | 2024-09-14 12:48 | XMS_ITS | Encounter Summary ---
Author Organization [facility] [place] [address] Care Team Providers Care Clinic Office Assistant Name Role Phone Poly Copeland MD Primary Care Provider [phone] Encounter Details Date Type Department Care Team (Late st Contact Info) Description 08/25/2014 [place] [phone] Luisito Preciado RN Social History Tobacco Use [...] on filedocumented in this encounter Care Teams Clinic Office Assistant Relationship Specialty Start Date End Date Poly Copeland MD [address] [place], [place] [address] PCP - General 09/15/10 documented as of this encounter
--- OUTSIDE RECORDS SUMMARY | 2024-09-14 12:48 | XMS_ITS | Encounter Summary ---
Author Organization [facility] [place] [address] Care Team Providers Care Coverage Specialist Rn Name Role Phone Poly Copeland MD Primary Care Provider [phone] Reason for Visit * Reason Onset Date Comments Follow-up 04/04/2017 Encounter Details Date Type Department Care Team (Late st Contact Info) Description 04/04/2017 Telephone Hematology/Oncology at [address] [address] Vidhi Hughes RN Follow-up Social [...] on filedocumented in this encounter Care Teams Coverage Specialist Rn Relationship Specialty Start Date End Date Poly Copeland MD [address] [place] [address] PCP - General 09/15/10 documented as of this encounter
--- OUTSIDE RECORDS SUMMARY | 2024-09-14 12:48 | XMS_ITS | Encounter Summary ---
Author Organization [facility] Address [address] [place] [address] Care Team Providers Care Security Patrol Driver Name Role Phone Poly Copeland MD Primary Care Provider [phone] Encounter Details Date Type Department Care Team (Late st Contact Info) Description 01/23/2017 Results Only [facility]- [facility]ISM [phone] Cece Costa, DO [address] [place] [address] Social History Tobacco Use Types [...] ? KELLY QUIÑONES ? Accession #: ? [id number] ? : ? 1940 (Age: 76) ??F [...] obtaining preauthorization. ?? ANTIBODY(CLONE)(BLOCK) :RESULT MLH1 (M1, [place]) (11): Loss of expression in the tumor PMS2 ([id number], [place]) (11): Loss of expression in the tumor MSH2 ([id number], [place]) (11): Retained expression in tumor MSH6 (44, [place]) (11): Retained expression in tumor NOTE: ??One [...] performance characteristics have been determined by [facility]. ??The positive and negative controls worked [...] are identified (0.2-0.5 cm in greatest dimension). ??Labor Union Business Representative sections are submitted as follows: INK CALDERÓN Blue-serosa over mass Black-radial margin [place]-proximal appendix margin BLOCK CALDERÓN 1- ??proximal margin, en face 2- ??distal margin, adjacent to stapled margin 3- ??collections representative section of terminal ileum 4- ??collections representative section of ascending colon 5- ??ileocecal valve 6- ??two collections representative sections of dilated cecum 7- ??radial margin 8- ??vascular peduncle, en face 9- ??appendix (proximal margin, collections representative section, and bisected distal end) 10- ??transition from lesion to proximal ascending colon 11- ??transition from lesion to distal ascending colon 12-15- ??collections representative sections of ulcerating lesion 16- ??collections representative section with inked serosa 17- ??two probable lymph nodes 18- ??two probable lymph nodes 19- ??three probable lymph nodes 20- ??one probable lymph node, bisected 21- ??one probable lymph node, bisected 22- ??two probable lymph nodes 23- ??two probable lymph nodes Ivy Umesh 01/25/2017 2:18 PM End of Report [facility] 01/23/2017 21:4 6 EDT 01/24/2017 21:46 EDT us Cece Costa DO PATHOLOGY ORDERABLES Final Res ult [facility] [address] [place] [address] documented in this encounter Visit Diagnoses Not on filedocumented in this encounter Care Teams Security Patrol Driver Relationship Specialty Start Date End Date Ploy Copeland MD [address] [place] [address] [address] [place] [address] PCP - General 10/29/09 documented as of this encounter
--- OUTSIDE RECORDS SUMMARY | 2024-09-14 12:49 | XMS_ITS | Encounter Summary ---
Author Organization [facility] Address [address] [place] [address] Care Team Providers Care Die Technician Name Role Phone Unavailable Primary Care Provider Unavailabl e Encounter Details Date Type Department Care Team (Late st Contact Info) Description 11/06/2008 Before PRISM Converted Visit ([facility]) [facility] Medicine [address] [id number] Tulio Maxwell MD [address] [place] [address] Social History Tobacco Use Types [...] ISHMAEL, KELLY Ray ? Accession #: ? [id number] ? : ? 1940 (Age: 68) ??F [...] habits ? Gross Description: ? Received in [facility]'s fixative labelled Ishmael and 1 ??polyp ascending colon is a 0.2 x 0.2 x 0.2 cm polypoid biopsy. ??The specimen is submitted ? intact as (A). ? [facility] labelled Ishmael and 2 ??polyp sigmoid 20 cm is a 0.4 x 0.3 x 0.3 cm polypoid biopsy. ??The specimen is submitted intact as ?? (B). ??(KELLEY Tessitore)/lgk ? End of Report ? [facility] 11/06/2008 11/06/2008 8:2 7 EST us Tulio Maxwell MD PATHOLOGY ORDERABLES Final Resul t [facility] [address] [place] [address] documented in this encounter Visit Diagnoses Not on filedocumented in this encounter
--- OUTSIDE RECORDS SUMMARY | 2024-09-14 12:49 | XMS_ITS | Encounter Summary ---
Author Organization [facility] Address [address] [place] [address] Care Team Providers Care Hand Knitter Name Role Phone Poly Copeland MD Primary Care Provider [phone] Encounter Details Date Type Department Care Team (Late st Contact Info) Description 01/11/2001 Results Only [facility] - Maple conversion [address] [place] [address] Radha Lau FNP [address] [place] [address] Social History Tobacco Use Types [...] ? KELLY QUIÑONES ? Accession #: ? [id number] : ? 1940 (Age: 60) ??F ?Collect [...] Final Resul t [facility] [address] [place] [address] documented in this encounter Visit Diagnoses Not on filedocumented in this encounter Care Teams Hand Knitter Relationship Specialty Start Date End Date Poly Copeland MD [address] [place] [address] [address] [place] [address] PCP - General 10/29/09 documented as of this encounter
--- OUTSIDE RECORDS SUMMARY | 2024-09-14 12:49 | XMS_ITS | Encounter Summary ---
Author Organization [facility] Address [address] [place] [address] Care Team Providers Care Microchip Specialist Name Role Phone Unavailable Primary Care Provider Unavailabl e Encounter Details Date Type Department Care Team (Late st Contact Info) Description 10/27/2009 Orders Only [facility] Laboratory Services - [facility] ([facility] [address] [place] [address] Dylan Tiwari MD [address] [place] [address] Social History Tobacco Use Types Packs/Day Years [...] PATHOLOGY ORDERABLES Final Result [facility] [address] [place] [address] documented in this encounter Visit Diagnoses Not on filedocumented in this encounter
[2024-09-14 14:05] LABS: Abs Immature Grans 0.07 10^3/uL (0.0-0.06); Absolute Basophil Count 0.02 10^3/uL (0.0-0.2); Absolute Lymphocyte Count 0.65 10^3/uL (1.2-3.4); Absolute Monocyte Count 0.11 10^3/uL (0.1-0.8); Absolute Neutrophil Count 9.93 10^3/uL (1.2-6.7); Basophils % 0.2 %; HGB 10.9 g/dL (11.2-15.7); Immature Grans % 0.6 %; MCH 25.2 pg (27.0-33.0); MCHC 29.5 % (32.0-36.0); MCV 86 fL (80-95); MPV 9.8 fL (8.0-11.0); Neutrophils % 92.2 %; Platelet Count 271 10^3/uL (130-400); RBC 4.32 10^6/uL (3.93-5.22); RDW 15.9 % (11.7-14.6); RDW-SD 49.5 fL; WBC 10.78 10^3/uL (4.4-10.8)
[2024-09-14 14:07] LABS: Lactate 2.5 mmol/L (0.6-1.4)
--- NOTE | 2024-09-14 14:18 | ED.GENADUL_ITS ---
Discharge Plan Discharge Details Chief Complaint: SOB Primary Care Provider: Poly Copeland ED Provider: Luke Marquez Home Meds and New Rx's Prescriptions: No Action [id number] 600 mg calcium- 800 unit-50 mg tablet 1 tab PO DAILY cholecalciferol (vitamin D3) 1,000 unit capsule 1,000 unit PO DAILY ascorbic acid (vitamin C) 500 mg tablet 500 mg PO DAILY triamcinolone acetonide 0.1 % cream 1 applic TP BID Qty: 80 2RF Rx Instructions: apply to back and chin Breelainetri Aerosphere 160-9-4.8 mcg/actuation HFA aerosol inhaler 2 inh inhalation BID Qty: 10.7 8RF ipratropium-albuterol 0.5 mg-3 mg(2.5 mg base)/3 mL solution for nebulization 3 ml inhalation Q6H PRN (Reason: wheezing) Qty: 540 7RF solifenacin [Vesicare] 10 mg tablet 10 mg PO DAILY Qty: 90 12RF prednisone 20 mg tablet 40 mg PO DAILY Qty: 10 0RF Rx Instructions: take in the morning with food. take 2 pills daily x 5 days benzonatate 100 mg capsule 100 mg PO TID PRN (Reason: cough) 7 Days Qty: 20 0RF aspirin [Aspirin Low-Strength] 81 MG tablet,chewable 81 mg PO DAILY fesoterodine [Toviaz] 8 mg tablet extended release 24 hr 8 mg PO DAILY Qty: 90 5RF omeprazole 20 mg capsule,delayed release(DR/EC) 20 mg PO DAILY Qty: 90 3RF torsemide 20 mg tablet See Rx Instructions PO BID Qty: 270 7RF Rx Instructions: 2 tabs am and 1 tab early PM orally twice a day; albuterol sulfate 90 mcg/actuation HFA aerosol inhaler 2 puff INHALATION QID PRN (Reason: shortness of breath or wheezing) Qty: 3 3RF levothyroxine 75 mcg tablet 75 mcg PO DAILY Qty: 90 6RF potassium chloride 20 mEq tablet,ER particles/crystals 20 meq PO BID Qty: 180 4RF acetaminophen 500 mg tablet 1,000 mg PO TID Qty: 90 0RF multivitamin [Daily Multiple] 1 EACH tablet 1 ea PO DAILY HPI General Mode of arrival: ambulatory . Date/Time Provider Initiated Documentation: 09/14/24 13:09 . Limitations to Documentation: no limitations . Information obtained by: patient . HPI Narrative: 84-year-old former smoker with history of COPD, presents today with chief complaint of persistent cough. Patient notes she has had a cough for the past 3 weeks. Symptoms started with scratchy throat and progressed to more productive cough. She was seen at [facility] 5 days ago. A chest x-ray was done at that time and interpreted as negative. She was started on prednisone and has increased her daily neb treatments from twice a day to 4 times a day. She notes continued symptoms over the past 5 days despite prednisone. She has not been on antibiotic and has not had COVID testing. Related Data Home Medications ?Medication ?Instructions ?Recorded ?Confirmed aspirin 81 mg chewable tablet 81 mg PO DAILY 11/05/15 09/14/24 (Aspirin Low-Strength) multivitamin (Daily Multiple 1 ea PO DAILY 04/07/17 09/14/24 tablet) calcium 600 mg-D3 800 unit-mag11 1 tab PO DAILY 01/15/19 09/14/24 50 iw-wtxj-oewxnh-bandar-s.borat tablet cholecalciferol (vitamin D3) 25 1,000 unit PO DAILY 07/26/19 09/14/24 mcg (1,000 unit) capsule Toviaz 8 mg tablet,extended 8 mg PO DAILY #90 tabs 12/10/22 09/14/24 release (fesoterodine) acetaminophen 500 mg tablet 1,000 mg (2 x 500 mg) PO TID #90 02/02/23 09/14/24 tabs omeprazole 20 mg capsule,delayed 20 mg PO DAILY #90 tab-caps 11/01/23 09/14/24 release ascorbic acid (vitamin C) 500 mg 500 mg PO DAILY 01/10/24 09/14/24 tablet triamcinolone acetonide 0.1 % 1 applic topical BID #80 grams 01/10/24 09/14/24 topical cream Breztri Aerosphere 160 2 inh inhalation BID #10.7 grams 01/16/24 09/14/24 mcg-9mcg-4.8mcg/actuation HFA aerosol inhaler (umvehutfca-rzatjqrn-shltwimsal) ipratropium 0.5 mg-albuterol 3 mg 3 ml inhalation Q6H PRN wheezing 02/02/24 09/14/24 (2.5 mg base)/3 mL nebulization #540 mL soln torsemide 20 mg tablet See Rx Instructions PO BID #270 02/03/24 09/14/24 tabs albuterol sulfate 90 mcg/actuation 2 puff inhalation QID PRN 05/15/24 09/14/24 aerosol inhaler shortness of breath or wheezing #3 ea levothyroxine 75 mcg tablet 75 mcg PO DAILY #90 tabs 06/11/24 09/14/24 potassium chloride 20 mEq 20 meq PO BID #180 tabs 07/10/24 09/14/24 tablet,extended release(part/cryst) solifenacin 10 mg tablet (Vesicare) 10 mg PO DAILY #90 tabs 07/10/24 09/14/24 benzonatate 100 mg capsule 100 mg PO TID PRN cough 7 days #20 09/11/24 09/14/24 caps prednisone 20 mg tablet 40 mg (2 x 20 mg) PO DAILY #10 tabs 09/11/24 09/14/24 Previous Rx's ?Medication ?Instructions ?Recorded Toviaz 8 mg tablet,extended 8 mg PO DAILY #90 tabs 12/10/22 release (fesoterodine) acetaminophen 500 mg tablet 1,000 mg (2 x 500 mg) PO TID #90 02/02/23 tabs omeprazole 20 mg capsule,delayed 20 mg PO DAILY #90 tab-caps 11/01/23 release triamcinolone acetonide 0.1 % 1 applic topical BID #80 grams 01/10/24 topical cream Breztri Aerosphere 160 2 inh inhalation BID #10.7 grams 01/16/24 mcg-9mcg-4.8mcg/actuation HFA aerosol inhaler (xzryeplklr-tncahqgs-dsaqcsmqwm) ipratropium 0.5 mg-albuterol 3 mg 3 ml inhalation Q6H PRN wheezing 02/02/24 (2.5 mg base)/3 mL nebulization #540 mL soln torsemide 20 mg tablet See Rx Instructions PO BID #270 02/03/24 tabs albuterol sulfate 90 mcg/actuation 2 puff inhalation QID PRN 05/15/24 aerosol inhaler shortness of breath or wheezing #3 ea levothyroxine 75 mcg tablet 75 mcg PO DAILY #90 tabs 06/11/24 potassium chloride 20 mEq 20 meq PO BID #180 tabs 07/10/24 tablet,extended release(part/cryst) solifenacin 10 mg tablet (Vesicare) 10 mg PO DAILY #90 tabs 07/10/24 benzonatate 100 mg capsule 100 mg PO TID PRN cough 7 days #20 09/11/24 caps prednisone 20 mg tablet 40 mg (2 x 20 mg) PO DAILY #10 tabs 09/11/24 Allergies Allergy/AdvReac Type Severity Reaction Status Date / Time Sulfa (Sulfonamide Allergy Intermediate BURNING Verified 09/14/24 12:49 Antibiotics) TONGUE letrozole AdvReac Intermediate Insomnia, Verified 09/14/24 12:49 depression General Stated Complaint: SOB LALA: 3 Review of Systems All systems reviewed & are unremarkable except as noted in HPI and below Constitutional Constitutional: Denies fever(s) Respiratory Respiratory: Reports as per HPI, Reports cough and Reports wheezing Allergic/Immunologic Allergic/Immunologic: Reports wheezing Exam Const General: cooperative HENWY Mouth: moist mucous membranes Eyes Conjunctivae: normal conjunctivae Sclera: normal sclerae Neck Neck: trachea midline Resp Effort & Inspection: able to speak in complete sentences, cough and not labored Auscultation: diminished lung sounds bilaterally in the lower lung santos, no rales, no rhonchi and wheezes expiratory wheezes Cardio Rate: regular rate and not tachycardic Rhythm: regular rhythm GI Palpation: soft, not firm, no guarding, no masses, not rigid and nontender Skin General skin exam: no rashes or lesions noted Neuro General: patient alert, patient awake, patient oriented x3 and tone normal Extrem General: no calf tenderness and no edema Psych Appearance: grossly normal Mental Status: mental status grossly normal Speech and Movement: speech and movement normal Course Vital Signs Vital signs: Vital Signs Temperature 36.3 C L 09/14/24 12:42 Pulse 89 09/14/24 12:42 Respiratory Rate 20 09/14/24 12:42 Blood Pressure 156/68 H 09/14/24 12:42 Pulse Oximetry 94 09/14/24 12:42 Temperature 36.3 C L 09/14/24 12:42 Temperature Source Oral 09/14/24 12:42 Pulse 89 09/14/24 12:42 Respiratory Rate 20 09/14/24 13:37 Respiratory Effort Short of Breath 11/22/24 13:38 Respiratory Depth Normal 09/14/24 13:37 Respiratory Pattern Normal 09/14/24 13:37 Blood Pressure 156/68 H 09/14/24 12:42 Blood Pressure Position Sitting 09/14/24 12:42 Pulse Oximetry 94 09/14/24 12:42 Oxygen Delivery Method Room Air 09/14/24 12:42 Oxygen Flow Rate 0 09/14/24 12:42 Pain Level 10 09/14/24 12:42 Comment 0/10 when sitting, when coughing it is a 08/02. 09/14/24 12:42 Lab/Test Results Lab/Test Results: Laboratory Tests Range/Units 09/14/24 13:47 WBC (4.4-10.8) 10^3/uL 10.78 RBC (3.93-5.22) 10^6/uL 4.32 Hgb (11.2-15.7) g/dL 10.9 L Hct (36.0-46.0) % 37.0 MCV (80-95) fL 86 MCH (27.0-33.0) pg 25.2 L MCHC (32.0-36.0) % 29.5 L RDW (11.7-14.6) % 15.9 H Plt Count (130-400) 10^3/uL 271 MPV (8.0-11.0) fL 9.8 Immature Gran % % 0.6 Neutrophils % % 92.2 Lymphocytes % % 6.0 Monocytes % % 1.0 Eosinophils % % 0.0 Basophils % % 0.2 Nucleated RBC % (0.0-0.3) % 0.0 Absolute Neutrophils (1.2-6.7) 10^3/uL 9.93 H Absolute Lymphocytes (1.2-3.4) 10^3/uL 0.65 L Absolute Monocytes (0.1-0.8) 10^3/uL 0.11 Absolute Eosinophils (0.0-0.7) 10^3/uL 0.00 Absolute Basophils (0.0-0.2) 10^3/uL 0.02 VBG Lactate (0.6-1.4) mmol/L 2.5 H* Medical Decision Making 1434 --84-year-old female former smoker with history of COPD, here with persistent cough over the past 3 weeks, has been on daily prednisone and increased utilization of albuterol nebs over the past 4 to 5 days, continues to have persistent cough. Patient is saturating in the low to mid 90s on room air. She does have diminished breath sounds bilaterally with some wheezing but is not acute respiratory distress. Blood pressure is normal although noted to be lower than her usual blood pressure. Suspect acute exacerbation of COPD with pneumonia versus bronchitis. Plan to obtain chest x-ray. Initial labs were reviewed: No leukocytosis but patient does have elevated lactate of 2.5. Chemistries pending as is COVID/flu/RSV testing. Patient's last neb treatment was earlier this morning. I will give DuoNeb treatment. Patient did already have her prednisone dosing today. -- Additional labs reviewed and anemia noted with hemoglobin 10.9. Patient reassessed and notes breathing a little bit better after neb treatment. Continues to have excessive coughing. Chest x-ray interpreted by radiology:Pulmonary vascular prominence and mildly increased interstitial markings could indicate mild CHF. I am concerned about potential left lower lobe pneumonia. COVID and flu testing are negative. Patient has no significant swelling and BNP is negative. I am concerned about potential left lower lobe pneumonia. Plan to obtain CT of the chest to better characterize pulmonary disease. Quality:SDOH Health Related Social Needs: No Data to Display PFSH All Active Problems Trigger finger, left ring finger (Acute) Former smoker (Acute) Hypoxic respiratory failure (Acute) Renal insufficiency (Chronic) Trigger finger, left little finger (Acute) DOS: 06/21/23 Hypothyroid (Chronic) Chronic obstructive lung disease, type A (Chronic 03/26/13) Essential hypertension (Acute 10/05/13) Gastroesophageal reflux disease without esophagitis (Chronic) Obesity (Chronic) Ascending aorta dilatation (Acute) 3.7 cm on 11/2019 SOB (shortness of breath) (Acute) Screening for colon cancer (Acute) Hyperplastic colon polyp (Acute) Serrated adenoma of colon (Acute) Cough (Acute) Peripheral neuropathy (Acute) Ankle pain (Acute) Edema (Acute) Hypoxia (Acute) Medical History Contusion of arm, right Muscle strain of right upper arm Edema Ulnar neuropathy Carpal tunnel syndrome Smoker 1PPD/47 years--quit 10/24/2002 Asthma Cholecystitis 10/29/09 unspecified Impacted cerumen of right ear 01/15/15 Vitamin D deficiency disease (08/12/08) Tinnitus (01/15/15) Sensory hearing loss, bilateral (01/15/15) Osteoarthritis of right knee (10/29/15) 10/29/15; END STAGE RIGHT KNEE Metastatic colon cancer in female (01/23/17) 01/23/2017; 11/06 L.N. + ; S/P RIGHT HEMICOLECTOMY Malignant neoplasm of female breast (12/21/08) left mastectomy Hiatal hernia (09/02/08) Urinary, incontinence, stress female (05/04/11) Diverticulosis of colon without diverticulitis (11/19/08) As found during colonoscopy on 11/06/08 Disorder of vitamin B12 Anticoagulated on warfarin W/U neg. Breast cancer Colon polyp Renal insufficiency, mild Surgical History History of total bilateral knee replacement (TKR) Left carpal tunnel syndrome S/P ECTR: 02/02/2023 History of colonoscopy (~12/2021) Status post cholecystectomy Status post laparoscopic hysterectomy Status post left mastectomy (12/10/14) b/l S/P laparoscopic hysterectomy S/P total knee replacement left-2002; right-10/2005 Hysterectomy, Laproscopic (~1978) Hemicolectomy (01/23/17) RIGHT Colonoscopy - MAC (05/12/18) Colonoscopy - MAC (04/12/17) Cholecystectomy (~10/2009) Breast, Mastectomy Bilat Arthroplasty 10/29/15; RIGHT KNEE; DR. FORBES Family History Mother , 71 Heart disease Colon cancer Father , 75 Essential hypertension Heart disease Alcohol abuse Maternal Grandfather , 82 Essential hypertension Heart disease Stroke Paternal Grandfather , 62 Heart disease Maternal Grandmother , 88 Essential hypertension Breast cancer Paternal Grandmother , 98 Diabetes Essential hypertension Stroke Sister Asthma Sister No problems noted. Sister No problems noted. Son No problems noted. Son No problems noted. Son No problems noted. 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 Pets and animals: No Sexually active: No Do you think of yourself as: straight/heterosexual Current gender identity: female What is your relationship status?: How often do you talk on the phone with friends or family?: three or more times per week How often do you get together with friends or relatives?: three or more times per week How often do you attend faith or jehovah's witness services?: decline to answer Do you belong to any clubs or organized social groups?: no Panel score (0-1 are the most socially isolated patients): 1 What type of physical activity do you participate in: other Details: Treadmill Duration: 15-30 minutes/day Frequency: daily Tabatha/Jain: Taoist Special tabatha needs: No Seatbelt use: always Helmet use: No Drive intox or ride w/intox lunch truck driver: No Do you feel safe at home: Yes Do you feel safe in your relationship?: Yes Additional Social history: lives alone
[2024-09-14 14:23] LABS: ALT 17 U/L (14-59); AST 26 U/L (15-37); Albumin 2.9 g/dL (3.4-5.0); Alkaline Phosphatase 90 U/L (46-116); Anion Gap 8.4 mmol/L (3-11); BUN 22 mg/dL (7-18); Bilirubin, Total 0.24 mg/dL (0.2-1.0); CO2 28.6 mmol/L (21.0-32.0); CREATININE 1.2 mg/dL (0.55-1.02); Chloride 107 mmol/L (98-107); Estimated GFR 45.19 (mL/min/1.73m2); Glucose 142 mg/dL (74-106); Potassium 5.2 mmol/L (3.5-5.1); Sodium 144 mmol/L (136-145); Total Protein 7.6 g/dL (6.4-8.2)
[2024-09-14] MEDS: Albuterol/Ipratropium 3 ML UPD VIAL UPD (14:28)
--- NOTE | 2024-09-14 14:45 | DI.RAD_ITS ---
Exam(s) XR CHEST 2V PA LATERAL EXAM: XR CHEST 2V PA LATERAL CLINICAL HISTORY: cough TECHNIQUE: 2D digital imaging was performed. Two views. COMPARISON: CR XR CHEST 2V PA LATERAL from 09/21/[address] CHEST W from 01/20/2024 CR XR CHEST 2V PA LATERAL from 09/11/2024 FINDINGS: HEART: Normal size. Aorta: Not dilated. PULMONARY VASCULATURE: Mildly prominent, increasing from prior. MEDIASTINUM: Unremarkable. LUNGS: No focal area of consolidation. Increased interstitial markings could indicate mild CHF. PLEURAL SPACE: No pleural effusion or pneumothorax. BONE:Degenerative changes in the thoracic spine. No compression fractures. SOFT TISSUES: Surgical clips again noted in anterior chest wall. IMPRESSION: Pulmonary vascular prominence and mildly increased interstitial markings could indicate mild CHF. DATA REPOSITORY: RADIATION DOSE DELIVERED:
[2024-09-14 14:51] LABS: COVID-19 PCR Negative (Negative); Influenza A PCR Negative (Negative); Influenza B PCR Negative (Negative); RSV PCR Negative (Negative); Source Nasopharynx
[2024-09-14 15:57] LABS: NT-proBNP 270 pg/mL (<300); Troponin I 5 ng/L (<or=51)
--- NOTE | 2024-09-14 16:00 | DI.CT_ITS ---
Exam(s) CT CHEST W EXAM: CT CHEST W CLINICAL HISTORY: cough, cxr concerning for chf, consider pneumonia TECHNIQUE: Imaging Protocol: Axial computed tomography images with coronal and sagittal reformatted images were created and reviewed. Computer aided detection (CAD) was utilized. CONTRAST MATERIAL: Intravenous: Omnipaque 350 Contrast volume:75 ml. COMPARISON: CT CT CHEST W from 01/20/2024 CR XR CHEST 2V PA LATERAL from 09/11/2024 CR XR CHEST 2V PA LATERAL from 09/14/2024 FINDINGS: Pulmonary parenchyma: No consolidation. No dominant measurable mass. Underlying emphysematous change s. Minimal perivascular ground glass opacity in the right upper lobe. Atelectasis inferior lingula. Tracheobronchial tree: No bronchiectasis or mucous plugging. Mild diffuse bronchial wall thickening. Mediastinum and Dari: No dominant adenopathy or fluid collection. Pleura: No effusion. No pneumothorax. Heart: Mild left atrial enlargement. The mitral valve is heavily calcified. Calcification also seen at aortic valve. Mild coronary artery calcifications are seen. Aorta: Thoracic aorta non-dilated. Mild to moderate atherosclerotic changes. Pulmonary arteries: No gross evidence of emboli. Pulmonary arteries are prominent and show cephaliza tion.. Main pulmonary artery measures 3.3 cm. Upper abdomen: No acute findings. Tiny hiatal hernia. Bones: Degenerative changes in the spine. No compression fractures. Soft tissues: Unremarkable. IMPRESSION: Prominent pulmonary arteries, peribronchial thickening and mildly increased interlobular septal thick ening consistent with CHF. Minimal ground-glass density right upper lobe. Findings called to Dr. Osullivan of the emergency department RADIATION DOSE DELIVERED: Total DLP DATA REPOSITORY: All CT scans at this facility are submitted to the National Radiology Data Registry (NRDR) Dose Index Registry (DIR) with the [employer] (ACR). RADIATION OPTIMIZATION: All CT scans at this facility use at least one of these dose optimization te chniques: automated exposure control; mA and/or kV adjustment per patient size (includes targeted exa ms where dose is matched to clinical indication); or iterative reconstruction.
[2024-09-14 16:02] LABS: Procalcitonin < 0.10 ng/mL
[2024-09-14] MEDS: Normal Saline - Diluent 50 ML VIAL IJ (16:34)
[2024-09-14] MEDS: Omnipaque 350 MG/ML 100 ML BTL 70 ML IJ (16:35)
--- NOTE | 2024-09-14 17:04 | ED.PROG_ITS ---
Date of service: 09/14/24 Time of Service: 17:04 Medical Decision Making Care assumed from off going provider. Patient is an 84-year-old female with past medical history of COPD. Has been having cough symptoms without significant improvement. Currently on day 4 of prednisone burst. No antibiotics were started. At the time of handoff, patient was pending a chest CT. I did discuss with the radiologist. There is no pleural effusion, pulmonary embolism or large consolidation. She thinks that there may be signs of mild CHF. Clinically the patient has no signs of volume overload, crackles, hypoxia. Her BNP is normal. She is on a diuretic and has not noted any concerns or symptoms for CHF. I have ordered an outpatient 2D echo. Will prescribe doxycycline for atypical coverage and a prescription for promethazine syrup was also sent to the pharmacy. Return precautions advised. Patient is well-appearing and stable for discharge home. Quality:[facility] Health Related Social Needs: No Data to Display Sign Out Sign Out Data: Sign Out Comment: 84yo with persistent cough over the past few weeks. Prednisone and nebs not resolving. Concern for PNA vs acute COPD with bronchitis vs CHF. BNP neg. cxr concerning for mild CHF. Follow-up CT and reassess patient for disposition. Last updated by Luke Marquez MD at 09/14/24 16:53 Discharge Plan Disposition Patient Disposition: Home Condition: Stable Discharge Details Clinical Impression: Chronic obstructive lung disease, type A, SOB (shortness of breath), Cough, Atypical pneumonia Primary Care Provider: Poly Copeland ED Provider: Chelsea Osullivan Home Meds and New Rx's Prescriptions: New doxycycline hyclate 100 mg capsule 100 mg PO BID 7 Days Qty: 14 0RF promethazine 6.25 mg/5 mL syrup 12.5 mg PO Q6H PRN (Reason: cough) Qty: 120 0RF No Action [id number] 600 mg calcium- 800 unit-50 mg tablet 1 tab PO DAILY cholecalciferol (vitamin D3) 1,000 unit capsule 1,000 unit PO DAILY ascorbic acid (vitamin C) 500 mg tablet 500 mg PO DAILY triamcinolone acetonide 0.1 % cream 1 applic TP BID Qty: 80 2RF Rx Instructions: apply to back and chin Breztri Aerosphere 160-9-4.8 mcg/actuation HFA aerosol inhaler 2 inh inhalation BID Qty: 10.7 8RF ipratropium-albuterol 0.5 mg-3 mg(2.5 mg base)/3 mL solution for nebulization 3 ml inhalation Q6H PRN (Reason: wheezing) Qty: 540 7RF solifenacin [Vesicare] 10 mg tablet 10 mg PO DAILY Qty: 90 12RF prednisone 20 mg tablet 40 mg PO DAILY Qty: 10 0RF Rx Instructions: take in the morning with food. take 2 pills daily x 5 days benzonatate 100 mg capsule 100 mg PO TID PRN (Reason: cough) 7 Days Qty: 20 0RF aspirin [Aspirin Low-Strength] 81 MG tablet,chewable 81 mg PO DAILY fesoterodine [Toviaz] 8 mg tablet extended release 24 hr 8 mg PO DAILY Qty: 90 5RF omeprazole 20 mg capsule,delayed release(DR/EC) 20 mg PO DAILY Qty: 90 3RF torsemide 20 mg tablet See Rx Instructions PO BID Qty: 270 7RF Rx Instructions: 2 tabs am and 1 tab early PM orally twice a day; albuterol sulfate 90 mcg/actuation HFA aerosol inhaler 2 puff INHALATION QID PRN (Reason: shortness of breath or wheezing) Qty: 3 3RF levothyroxine 75 mcg tablet 75 mcg PO DAILY Qty: 90 6RF potassium chloride 20 mEq tablet,ER particles/crystals 20 meq PO BID Qty: 180 4RF acetaminophen 500 mg tablet 1,000 mg PO TID Qty: 90 0RF multivitamin [Daily Multiple] 1 EACH tablet 1 ea PO DAILY Discharge Instructions Instructions: Atypical Pneumonia (Mycoplasma and Viral) (DC) Additional Instructions: * Start antibiotics twice daily as prescribed for the next 7 days. Your first dose of antibiotic was given in the emergency department * A prescription for cough medicine, Phenergan syrup was sent to the pharmacy. * Continue your breathing treatments at home every 4 hours * An outpatient echocardiogram has been ordered to evaluate for possible cardiac etiology of your worsening shortness of breath. They will contact you to schedule this. * Please follow-up with your PCP as soon as possible * Return to the emergency department if you develop worsening shortness of breath, weight gain, not responding to your diuretic, or other concerns.
[2024-09-14] MEDS: Doxycycline Hyclate 100 MG CAP PO (17:40)
--- NOTE | 2024-09-15 08:25 | NUR.NOTE ---
Faxed to [facility]: request for 2b Echo for cough, sob. Follow up with PCP Dinorah; to be done next available. Nursing Note:
== END 2024-09-14 17:45 | disposition home or self-care (01) ==
PROVIDERS: Student in an Organized Health Care Education/Training Program; Emergency Provider Emergency Medicine; PCP Family Medicine
DX: J44.9 Chronic obstructive pulmonary disease, unspecified (principal); R06.02 Shortness of breath; J18.9 Pneumonia, unspecified organism; Z79.82 Long term (current) use of aspirin; Z99.81 Dependence on supplemental oxygen; Z87.891 Personal history of nicotine dependence
CPT/HCPCS: 00123; 80053; 84145; 87426; 87637; 93005; 94640; 99285; 71046; 71260; 83605; 83880; 84484; 85025; 93010; 99284; J3490; J7620

== ENCOUNTER 2024-09-18 01:15 | Outpatient (CLI) | payer MEDICARE, SELFPAY ==
--- NOTE | 2024-09-18 | DI.US_ITS ---
APPROVED REPORT EXAM: Comprehensive 2D, Doppler, and color-flow Echocardiogram Patient Location: Out-Patient Therapeutic Support Staff: Lesley Campbell RDCS (AE) Indications: Cough, SOB, Ascending aorta dilation Other Information Study Quality: Adequate. Technically limited study due to body habitus. Conclusion Normal left ventricular wall thickness and chamber size. Ejection fraction is 55 to 60%. Wall motio n is normal Normal right ventricular size and function Both atria are normal in size Aortic valve is calcified and trileaflet. There is no hemodynamically significant aortic stenosis, n o regurgitation Mitral annular calcification. Mild mitral regurgitation Estimated right ventricular systolic pressure is 29 mmHg Very mildly dilated ascending aorta 3.43 cm Wall motion Left Ventricle Technically limited parasternal imaging window. The overall left ventricular systolic function appear s normal. There is normal LV segmental wall motion. There is no ventricular septal defect visualized. LVEF is 55-60%. Right Ventricle The right ventricle is normal size. The right ventricular systolic function is normal. Atria The left atrium size is normal. The right atrium size is normal. The interatrial septum is intact wit h no evidence for an atrial septal defect. Aortic Valve Aortic valve is calcified. Aortic valve is probably trileaflet. There is no aortic valvular stenosis. Mitral Valve Moderate mitral annular calcification. No evidence of mitral valve stenosis. Mild mitral regurgitatio n. Tricuspid Valve The tricuspid valve is normal in structure. There is no tricuspid valve stenosis. Trace tricuspid reg urgitation. The RVSP is 29.2_ mmHg. Pulmonic Valve The pulmonary valve is normal in structure. There is no pulmonic valvular stenosis. Trace pulmonic re gurgitation. Great Vessels The aortic root is normal in size. The ascending aorta is mildly dilated. Aortic arch is not well vis ualized. IVC is normal in size and collapses >50% with inspiration. Pericardium There is no pericardial effusion. 2D Dimensions Ao Root d 2.93 cm F: 2.7 - 3.3 Ao Asc Diam d 3.43 cm F: 2.3 - 3.1 M-Mode TAPSE 2.15 cm (M/F) >1.7 Auto EF LV EDV A4C 71.5 mL LV EDV A2C 81.7 mL LV EDV BP 75.0 mL LV ESV A4C 30.2 mL LV ESV A2C 35.1 mL LV ESV BP 31.7 mL LVEF(%) A4C 57.7 % LVEF(%) A2C 57.0 % LVEF(%) BP 57.7 % LV SV A4C 41.2 ml LV SV A2C 46.6 ml LV SV BP 43.3 ml LV CO A4C 3.1 L/min LV CO A2C 3.6 L/min LV CO BP 3.4 L/min HR A4C 75.95 BPM HR A2C 77.92 BPM LV EDV Index (BP) LA Volume LA Length A4C 5.5 cm LA Length A2C 5.5 cm LA Area A4C s 21.57 cm2 LA Area A2C s 14.90 cm2 LA Vol A4C A-L 71.51 mL LA Vol A2C A-L 34.19 mL LA Vol Biplane A-L 49.5 mL LA Vol/BSA A4C A-L LA Vol/BSA A2C A-L LA Vol/BSA BP A-L 25.4 mL/m2 LA Vol A4C MOD 66.7 mL LA Vol A2C MOD 31.4 mL LA Vol BP MOD 45.4 mL RA Volume RA Area A4C 12.3 cm2 RA ESV A4C (A-L) 31.7mL RA Vol/BSA A4C A-L RA Length A4C 4.0 cm RA ESV A4C (MOD) 30.7mL LV Diastology MV E' medial 0.055 (>0.07 m/s) MV E Vmax 1.19 (0.4-1.3 m/s) MV E/E' MED 21.60 (<14) MV A Vmax 1.55 (0.4-1.3 m/s) MV E' lateral 0.087 (>0.1 m/s) E/A Ratio 0.8 MV E/E' LAT 13.63 (<14) MV E' Average 0.071 m/s MV E/E'(average) 16.71 Aortic Valve AoV Vmax 1.52 m/s LVOT Vmax 1.24 m/s AoV Peak Grad 9.2 mmHg LVOT Peak Grad 6.1 mmHg AoV Area (Vmax) 2.56 cm2 LVOT VTI 0.254 m AoV VTI 0.349 m LVOT Mean Grad 3.0 mmHg AoV Mean Felipe. 1.09 m/s LVOT SV 79.92 mL AoV Mean Grad 5.3 mmHg LVOT Diam s 2.00 cm AoV Area (VTI) 2.29 cm2 AV Regurg Peak Gr. 9.24 mmHg Velocity Ratio 0.82 Mitral Valve MV DT 339 (160-240 msec) MV Vmax TIPS 1.62 m/s MV Mean Grad 3.9 (<2mmHg) MV VTI 0.423 m Pulmonary Valve PV Vmax 0.86 (0.5-1.5 m/s) RVOT Vmax 1.06 m/s PV Peak Grad 2.9 mmHg RVOT Peak Gr. 4.5 mmHg PV Mean Felipe 0.60 m/s RVOT VTI 0.237 m PV Mean Grad 1.7 mmHg RVOT Mean Gr. 2.3 mmHg Tricuspid Valve RA Pressure 3.00 mmHg TR Vmax 2.56 m/s TV S' 0.12 m/s TR Peak Grad 26.1 mmHg RVSP (TR) 29.2 mmHg
== END 2024-09-18 01:35 ==
LOC: DI 01:16
PROVIDERS: PCP Family Medicine; Visit Provider Emergency Medicine
DX: R06.02 Shortness of breath (principal); I34.0 Nonrheumatic mitral (valve) insufficiency
CPT/HCPCS: 93306

== ENCOUNTER → 2024-10-29 11:28 | Outpatient (BNVA) | payer MEDICARE, SELFPAY | PROVIDERS: PCP Family Medicine; Referring Provider Family Medicine; Visit Provider Physician Assistant Surgical | DX: J43.9 Emphysema, unspecified (principal); J96.91 Respiratory failure, unspecified with hypoxia; Z87.891 Personal history of nicotine dependence | CPT/HCPCS: 36415; 99214 ==

== ENCOUNTER 2024-10-29 20:11 | Outpatient (REF) | payer MEDICARE, SELFPAY ==
[2024-10-29 14:25] LABS: Anion Gap 5.3 mmol/L (3-11); BUN 17 mg/dL (7-18); CO2 32.7 mmol/L (21.0-32.0); CREATININE 1.3 mg/dL (0.55-1.02); Chloride 105 mmol/L (98-107); Estimated GFR 41.06 (mL/min/1.73m2); Glucose 86 mg/dL (74-106); NT-proBNP 185 pg/mL (<300); Potassium 3.9 mmol/L (3.5-5.1); Sodium 143 mmol/L (136-145)
[2024-10-29 14:28] LABS: Calcium 8.5 mg/dL (8.5-10.1)
== END 2024-10-29 20:12 | disposition home or self-care (01) ==
LOC: LBN 20:11
PROVIDERS: PCP Family Medicine; Visit Provider Physician Assistant Surgical
DX: N28.9 Disorder of kidney and ureter, unspecified (principal); I50.9 Heart failure, unspecified; J43.9 Emphysema, unspecified; J96.91 Respiratory failure, unspecified with hypoxia; Z87.891 Personal history of nicotine dependence
CPT/HCPCS: 80048; 83880; 87070; 87205

== ENCOUNTER 2024-11-12 10:54 | Outpatient (CLI) | payer MEDICARE, SELFPAY | END 2024-11-12 10:55 | disposition home or self-care (01) | LOC: RT 10:55 | PROVIDERS: PCP Family Medicine; Visit Provider Family Medicine | DX: J44.9 Chronic obstructive pulmonary disease, unspecified (principal); R09.02 Hypoxemia | CPT/HCPCS: 94762 ==

== ENCOUNTER 2024-11-27 12:23 | Observation (INO) | payer MEDICARE, SELFPAY ==
[2024-11-27] VITALS (50 sets, daily range): BP systolic 88–179; BP diastolic 38–125; PULSE 79–100; RESP 5–29; TEMP 36.3–37.1; O2SAT 88–100
--- NOTE | 2024-11-27 12:30 | DI.CT_ITS ---
Exam(s) CT CHEST WO EXAM: CT CHEST WO CLINICAL HISTORY: recurrent resp disease, hx of pna + 6 wks. TECHNIQUE: Imaging protocol: Axial computed tomography images were obtained and coronal and sagittal reformatted images were created and reviewed. Computer aided detection (CAD) was utilized. CONTRAST MATERIAL: Noncontrast COMPARISON: CT CT CHEST W from 09/14/2024 CR XR CHEST 2V PA LATERAL from 09/14/2024 FINDINGS: Pulmonary parenchyma: No consolidation. Stable small bilateral upper lobe pulmonary nodules. Interstitial changes: Mild. Emphysema: None [id number] emphysematous changes great greater in the upper lobes. Tracheobronchial tree: No mucous plugging. No bronchiectasis . Pleura: No effusion or pneumothorax. Heart: The heart is mildly dilated. The coronary arteries show moderate calcifications. Mitral valv e calcified. Aorta: Thoracic aorta non-dilated. Moderate atherosclerotic changes. Lymph nodes: No enlarged lymph nodes. Bones: Degenerative changes are seen. No evidence of compression fracture. Upper abdomen: Unremarkable. Soft tissues: Surgical clips are right anterior pectoral muscle. IMPRESSION: No acute abnormality. Emphysematous changes in the upper lobes. RADIATION DOSE DELIVERED: 346.13mGy.cm Total DLP 346.13mGy.cm Total DLP DATA REPOSITORY: All CT scans at this facility are submitted to the National Radiology Data Registry (NRDR) Dose Index Registry (DIR) with the [employer] (ACR). RADIATION OPTIMIZATION: All CT scans at this facility use at least one of these dose optimization te chniques: automated exposure control; mA and/or kV adjustment per patient size (includes targeted exa ms where dose is matched to clinical indication); or iterative reconstruction.
[2024-11-27 12:54] LABS: Abs Immature Grans 0.04 10^3/uL (0.0-0.06); Absolute Basophil Count 0.03 10^3/uL (0.0-0.2); Absolute Eosinophil Count 0.16 10^3/uL (0.0-0.7); Absolute Lymphocyte Count 1.57 10^3/uL (1.2-3.4); Absolute Neutrophil Count 6.23 10^3/uL (1.2-6.7); Basophils % 0.3 %; Eosinophils % 1.8 %; HCT 29.2 % (36.0-46.0); HGB 8.3 g/dL (11.2-15.7); Immature Grans % 0.4 %; Lymphocytes % 17.4 %; MCH 23.5 pg (27.0-33.0); MCHC 28.4 % (32.0-36.0); MCV 83 fL (80-95); MPV 8.9 fL (8.0-11.0); Monocytes % 11.1 %; Nucleated RBC 0.2 % (0.0-0.3); Platelet Count 257 10^3/uL (130-400); RBC 3.53 10^6/uL (3.93-5.22); RDW 16.1 % (11.7-14.6); RDW-SD 48.1 fL; WBC 9.03 10^3/uL (4.4-10.8)
[2024-11-27] MEDS: Albuterol 2.5 MG/3 ML INH SOLN VIAL UPD (12:55)
[2024-11-27] MEDS: methylPREDNISolone SUCC 125 MG VIAL 80 MG IVP (12:55)
[2024-11-27 13:20] LABS: ALT 19 U/L (14-59); AST 14 U/L (15-37); Alkaline Phosphatase 105 U/L (46-116); Anion Gap 8.2 mmol/L (3-11); BUN 14 mg/dL (7-18); Bilirubin, Total 0.19 mg/dL (0.2-1.0); CO2 30.8 mmol/L (21.0-32.0); Calcium 8.7 mg/dL (8.5-10.1); Chloride 106 mmol/L (98-107); Estimated GFR 56.25 (mL/min/1.73m2); Glucose 96 mg/dL (74-106); Magnesium 2.1 mg/dL (1.8-2.4); NT-proBNP 263 pg/mL (<300); Potassium 3.6 mmol/L (3.5-5.1); Sodium 145 mmol/L (136-145); TSH (W/Ref FT4) 0.63 uIU/mL (0.36-3.74); Troponin I 7 ng/L (<or=51)
[2024-11-27] MEDS: Albuterol/Ipratropium 3 ML UPD VIAL UPD (14:00)
[2024-11-27 14:12] LABS: Influenza A PCR Negative (Negative); Influenza B PCR Negative (Negative); RSV PCR Negative (Negative)
[2024-11-27 14:13] LABS: COVID-19 PCR Negative (Negative); Source Nasopharynx
[2024-11-27 14:58] LABS: Troponin I 9 ng/L (<or=51)
--- NOTE | 2024-11-27 15:20 | HPE_ITS ---
Date of service: 11/27/24 Time of Service: 15:21 Assessment and Plan Assessment and plan (1) COPD exacerbation: Status: Acute Assessment and plan: Presenting with increased shortness of breath hypoxia increased cough and sputum production Chest imaging negative for pneumonia or pleural effusion sepsis; upper respiratory viral panel was also negative Chest imaging denotes changes pointing to emphysema which is correlating with her previous diagnostic of COPD In August patient was treated with doxycycline and received 1 dose of doxycycline in the ED Will treat patient with azithromycin 500 mg oral x 3 days IV steroid given in ED-transitioning to oral prednisone in the morning Sepsis criteria not met (2) Hypoxic respiratory failure: Status: Acute Assessment and plan: Patient presenting with shortness of breath and hypoxia on ambulation exercise intolerance And as above (3) Hypothyroid: Status: Chronic Assessment and plan: Continue home medicine regimen with levothyroxine (4) Essential hypertension: Status: Acute Assessment and plan: Continue home medicine regimen (5) Anemia: Status: Chronic Assessment and plan: Seems to be chronic but had a drop of 2 points in the past 4 months which most likely is not the cause of hypoxia at this time with COPD exacerbation being more probable etiology. Patient mention daily hematochezia with blood clot this morning we will order stool guaiac, the patient is already on PPI at home and will continue her regimen during the stay. The liver appeared to be microcytic with normal MCV and low MCH-will still pursue iron studies and folate, B12 CBC in a.m. Consider surgical consult for GI bleed if guaiac is positive for acute sign of GI bleeding confirmed (6) Gastroesophageal reflux disease without esophagitis: Status: Chronic Assessment and plan: Continue home omeprazole Consider Protonix IV twice daily if GI bleed (7) Contraindication to deep vein thrombosis (DVT) prophylaxis: Status: Acute Assessment and plan: TEDs or SCDs Discussed with Dr. Cadet History of Present Illness History of Present Illness Chief Complaint: Shortness of breath Narrative: This 84 years old female patient with a past medical history of oxygen dependent COPD with recent hospitalization for exacerbation when she was treated with doxycycline and steroids, hypothyroidism, HFpEF with last LVEF between 55 and 60%, GERD and anemia with colon CA, breast cancer with bilateral mastectomy, and chronic GI bleed presented to the ED for evaluation of increased shortness of breath for the past 4 days with inability to ambulate. Patient reporting increasing oxygen use to continuous. Patient also reporting increased productive cough. She denied chills fever or chest discomfort. Patient reporting daily hematochezia with blood clots seen this morning. On presentation to the ED the patient was not febrile or hypotensive, heart rate 80s to 90s with respiratory rate 15-21. Saturation in oxygen 84 to 89% with ambulation and 91 to 95% at rest on room air. In the ED was significant for the absence of leukocytosis, hemoglobin of 8.3 from max at 10.9 in August 2024. Chemistry was unremarkable. Chest CT revealed on emphysematous changes correlating known COPD diagnosis without any acute abnormal findings. The hospitalist was consulted and the patient admitted to the medical surgical floor for hypoxic respiratory failure in the setting of COPD exacerbation and anemia. The patient has a POLST form dating from March 2021 where he is a DNR/DNI. Patient denied fever, chest pain, nausea, vomiting, dysuria. Patient reported bilateral leg swelling starting many weeks ago, hematochezia. Review of Systems All systems reviewed & are unremarkable except as noted in HPI and below PFSH All Active Problems (Updated 11/27/24 @ 16:26 by Vidhi Vásquez APRN) Contraindication to deep vein thrombosis (DVT) prophylaxis (Acute) Anemia (Chronic) COPD exacerbation (Acute) Trigger finger, left ring finger (Acute) Former smoker (Acute) Hypoxic respiratory failure (Acute) Renal insufficiency (Chronic) Trigger finger, left little finger (Acute) DOS: 06/21/23 Hypothyroid (Chronic) Chronic obstructive lung disease, type A (Chronic 03/26/13) Essential hypertension (Acute 10/05/13) Gastroesophageal reflux disease without esophagitis (Chronic) Obesity (Chronic) Ascending aorta dilatation (Acute) 3.7 cm on 11/2019 SOB (shortness of breath) (Acute) Screening for colon cancer (Acute) Hyperplastic colon polyp (Acute) Serrated adenoma of colon (Acute) Cough (Acute) Peripheral neuropathy (Acute) Ankle pain (Acute) Edema (Acute) Hypoxia (Acute) Medical History Contusion of arm, right Muscle strain of right upper arm Edema Ulnar neuropathy Carpal tunnel syndrome Smoker 1PPD/47 years--quit 10/24/2002 Asthma Cholecystitis 10/29/09 unspecified Impacted cerumen of right ear 01/15/15 Vitamin D deficiency disease (08/12/08) Tinnitus (01/15/15) Sensory hearing loss, bilateral (01/15/15) Osteoarthritis of right knee (10/29/15) 10/29/15; END STAGE RIGHT KNEE Metastatic colon cancer in female (01/23/17) 01/23/2017; 11/06 L.N. + ; S/P RIGHT HEMICOLECTOMY Malignant neoplasm of female breast (12/21/08) left mastectomy Hiatal hernia (09/02/08) Urinary, incontinence, stress female (05/04/11) Diverticulosis of colon without diverticulitis (11/19/08) As found during colonoscopy on 11/06/08 Disorder of vitamin B12 Anticoagulated on warfarin W/U neg. Breast cancer Colon polyp Renal insufficiency, mild Surgical History History of total bilateral knee replacement (TKR) Left carpal tunnel syndrome S/P ECTR: 02/02/2023 History of colonoscopy (~12/2021) Status post cholecystectomy Status post laparoscopic hysterectomy Status post left mastectomy (12/10/14) b/l S/P laparoscopic hysterectomy S/P total knee replacement left-2002; right-10/2005 Hysterectomy, Laproscopic (~1978) Hemicolectomy (01/23/17) RIGHT Colonoscopy - MAC (05/12/18) Colonoscopy - MAC (04/12/17) Cholecystectomy (~10/2009) Breast, Mastectomy Bilat Arthroplasty 10/29/15; RIGHT KNEE; DR. FORBES Family History Mother , 71 Heart disease Colon cancer Father , 75 Essential hypertension Heart disease Alcohol abuse Maternal Grandfather , 82 Essential hypertension Heart disease Stroke Paternal Grandfather , 62 Heart disease Maternal Grandmother , 88 Essential hypertension Breast cancer Paternal Grandmother , 98 Diabetes Essential hypertension Stroke Sister Asthma Sister No problems noted. Sister No problems noted. Son No problems noted. Son No problems noted. Son No problems noted. 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 Pets and animals: No Sexually active: No Do you think of yourself as: straight/heterosexual Current gender identity: female What is your relationship status?: How often do you talk on the phone with friends or family?: three or more times per week How often do you get together with friends or relatives?: three or more times per week How often do you attend uatsdin or restorationism services?: decline to answer Do you belong to any clubs or organized social groups?: no Panel score (0-1 are the most socially isolated patients): 1 What type of physical activity do you participate in: other Details: Treadmill Duration: 15-30 minutes/day Frequency: daily Tabatha/Pentecostal: Restorationism Special tabatha needs: No Seatbelt use: always Helmet use: No Drive intox or ride w/intox bulk delivery driver: No Do you feel safe at home: Yes Do you feel safe in your relationship?: Yes Additional Social history: lives alone Meds Allergies and Home Medications Allergies Allergy/AdvReac Type Severity Reaction Status Date / Time Sulfa (Sulfonamide Allergy Intermediate BURNING Verified 11/27/24 12:26 Antibiotics) TONGUE letrozole AdvReac Intermediate Insomnia, Verified 11/27/24 12:26 depression Home Medications ?Medication ?Instructions ?Recorded ?Confirmed ?Type aspirin 81 mg chewable tablet 81 mg PO DAILY 11/05/15 11/27/24 History (Aspirin Low-Strength) multivitamin (Daily Multiple 1 ea PO DAILY 04/07/17 11/27/24 History tablet) calcium 600 mg-D3 800 unit-mag11 1 tab PO DAILY 01/15/19 11/27/24 History 50 kd-omwr-grlxhe-bandar-s.borat tablet cholecalciferol (vitamin D3) 25 1,000 unit PO DAILY 07/26/19 11/27/24 History mcg (1,000 unit) capsule Toviaz 8 mg tablet,extended 8 mg PO DAILY #90 tabs 12/10/22 11/27/24 Rx release (fesoterodine) acetaminophen 500 mg tablet 1,000 mg (2 x 500 mg) PO TID #90 02/02/23 11/27/24 Rx tabs ascorbic acid (vitamin C) 500 mg 500 mg PO DAILY 01/10/24 11/27/24 History tablet triamcinolone acetonide 0.1 % 1 applic topical BID #80 grams 01/10/24 11/27/24 Rx topical cream ipratropium 0.5 mg-albuterol 3 mg 3 ml inhalation Q6H PRN wheezing 02/02/24 11/27/24 Rx (2.5 mg base)/3 mL nebulization #540 mL soln albuterol sulfate 90 mcg/actuation 2 puff inhalation QID PRN 05/15/24 11/27/24 Rx aerosol inhaler shortness of breath or wheezing #3 ea levothyroxine 75 mcg tablet 75 mcg PO DAILY #90 tabs 06/11/24 11/27/24 Rx potassium chloride 20 mEq 20 meq PO BID #180 tabs 07/10/24 11/27/24 Rx tablet,extended release(part/cryst) solifenacin 10 mg tablet (Vesicare) 10 mg PO DAILY #90 tabs 07/10/24 11/27/24 Rx Breztri Aerosphere 160 2 inh inhalation BID #10.7 grams 10/20/24 11/27/24 Rx mcg-9mcg-4.8mcg/actuation HFA aerosol inhaler (gdgdlbowlo-xzlhteos-jmtevkhafw) promethazine 6.25 mg/5 mL oral 12.5 mg (10 mL) PO Q6H PRN cough 10/25/24 11/27/24 Rx syrup #120 mL bumetanide 1 mg tablet 1 mg PO DAILY #2 tabs 10/29/24 11/27/24 Rx torsemide 20 mg tablet See Rx Instructions PO QAM #270 11/20/24 11/27/24 Rx tabs omeprazole 20 mg capsule,delayed 20 mg PO DAILY #90 tab-caps 11/21/24 11/27/24 Rx release Exam Narrative Exam Narrative: Constitutional Frail elderly patient appearing of stated age Neuro:alert and oriented to self, person, place time and situation. No neurological focal deficit Chest:Chest is symmetrical and normal appearance Resp: labored breathing, diffuse expiratory wheezing throughout bilateral lung santos with deep breathing Cardio: regular rhythm, S1, S2, no murmur, bilateral radial and dorsalis pedis pulses are positive, palpable GI: Abdomen is not distended, soft and non tender, bowel sounds are present : Negative Costovertebral angle tenderness, no bladder distension Back/spine/Pelvis: No back tenderness, normal alignment Integumentary: No skin lesions or rash Extremities: strength 5/5 to bilateral lower and upper extremities Psych: RASS 0, congruent mood and normal affect. Results Labs 11/27/24 12:45 11/27/24 12:45 Labs: Laboratory Results - last 24 hr 11/27/24 11/27/24 11/27/24 12:45 13:20 14:35 WBC 9.03 RBC 3.53 L Hgb 8.3 L Hct 29.2 L MCV 83 MCH 23.5 L MCHC 28.4 L RDW 16.1 H Plt Count 257 MPV 8.9 Immature Gran % 0.4 Neutrophils % 69.0 Lymphocytes % 17.4 Monocytes % 11.1 Eosinophils % 1.8 Basophils % 0.3 Nucleated RBC % 0.2 Absolute Neutrophils 6.23 Absolute Lymphocytes 1.57 Absolute Monocytes 1.00 H Absolute Eosinophils 0.16 Absolute Basophils 0.03 Sodium 145 Potassium 3.6 Chloride 106 Carbon Dioxide 30.8 Anion Gap 8.2 BUN 14 Creatinine 1.0 Est GFR (CKD-EPI 2020) 56.25 Glucose 96 Calcium 8.7 Magnesium 2.1 Total Bilirubin 0.19 L AST 14 L ALT 19 Alkaline Phosphatase 105 Troponin I 7 9 NT-Pro-B Natriuret Pep 263 Total Protein 7.0 Albumin 3.0 L TSH 0.63 COVID-19 Source Nasopharynx SARS-CoV-2 (PCR) Negative Influenza Type A (PCR) Negative Influenza Type B (PCR) Negative RSV (PCR) Negative Last Vital Signs Temp 36.4 C L 11/27/24 12:37 Pulse 93 H 11/27/24 14:00 Resp 15 11/27/24 14:00 BP 179/48 H 11/27/24 12:30 Pulse Ox 93 11/27/24 14:00 Time Spent Time spent with Patient: >75 minutes Time was spent: preparing to see the patient(eg.review tests), obtaining and/or reviewing separately otained hiistory, ordering medications,tests, procedures, referring, communicating with other health client care specialist, indepentently interpreting results, counseling the patient and care coordination
--- NOTE | 2024-11-27 15:22 | ED.GENADUL_ITS ---
Discharge Plan Discharge Details Chief Complaint: RespSymp Admit Date/Time: 11/27/24 15:56 Admit Provider: Robert Cadet Attending Provider: Robert Cadet Primary Care Provider: Poly Copeland ED Provider: Naila Lemus Discharge Data Discharge Date/Time-TO BE ENTERED AT DEPARTURE: 11/27/24 18:03 HPI General Date/Time Provider Initiated Documentation: 11/27/24 12:29 . HPI Narrative: The patient is an 84-year-old female with a history of COPD, congestive heart failure (CHF), hypothyroidism, respiratory failure, and renal insufficiency. She presents with a report of worsening shortness of breath and dyspnea with a productive cough over the past several weeks. She is accompanied by her son. Over the past 4 days, she has been unable to ambulate within her home, managing only 2 to 3 steps. Despite continuous use of supplemental oxygen, her oxygen saturation remains elevated and has not dropped below 90%. This continuous use of oxygen is not typical for her. She reports no fever, chills, or chest discomfort. She has experienced some swelling in her calves, which she attributes to a reduction in her torsemide dosage last week. She also reports no orthopnea. Incidentally, her hemoglobin has dropped from 10 to 8.4 over the past 4 months. She reports daily bleeding and has a history of colon cancer. She has not had a colonoscopy for 3 years due to her age, as she was informed that it was no longer necessary. However, she is still uncertain about undergoing a colonoscopy if warranted. She had a bloody stool this morning. Related Data Home Medications ?Medication ?Instructions ?Recorded ?Confirmed aspirin 81 mg chewable tablet 81 mg PO DAILY 11/05/15 11/27/24 (Aspirin Low-Strength) multivitamin (Daily Multiple 1 ea PO DAILY 04/07/17 11/27/24 tablet) calcium 600 mg-D3 800 unit-mag11 1 tab PO DAILY 01/15/19 11/27/24 50 pi-ntyc-vkgoja-bandar-s.borat tablet cholecalciferol (vitamin D3) 25 1,000 unit PO DAILY 07/26/19 11/27/24 mcg (1,000 unit) capsule Toviaz 8 mg tablet,extended 8 mg PO DAILY #90 tabs 12/10/22 11/27/24 release (fesoterodine) acetaminophen 500 mg tablet 1,000 mg (2 x 500 mg) PO TID #90 02/02/23 11/27/24 tabs ascorbic acid (vitamin C) 500 mg 500 mg PO DAILY 01/10/24 11/27/24 tablet triamcinolone acetonide 0.1 % 1 applic topical BID #80 grams 01/10/24 11/27/24 topical cream ipratropium 0.5 mg-albuterol 3 mg 3 ml inhalation Q6H PRN wheezing 02/02/24 11/27/24 (2.5 mg base)/3 mL nebulization #540 mL soln albuterol sulfate 90 mcg/actuation 2 puff inhalation QID PRN 05/15/24 11/27/24 aerosol inhaler shortness of breath or wheezing #3 ea levothyroxine 75 mcg tablet 75 mcg PO DAILY #90 tabs 06/11/24 11/27/24 potassium chloride 20 mEq 20 meq PO BID #180 tabs 07/10/24 11/27/24 tablet,extended release(part/cryst) solifenacin 10 mg tablet (Vesicare) 10 mg PO DAILY #90 tabs 07/10/24 11/27/24 Breztri Aerosphere 160 2 inh inhalation BID #10.7 grams 10/20/24 11/27/24 mcg-9mcg-4.8mcg/actuation HFA aerosol inhaler (wacibgtmnt-cnmknsis-fsniwuzhuh) promethazine 6.25 mg/5 mL oral 12.5 mg (10 mL) PO Q6H PRN cough 10/25/24 11/27/24 syrup #120 mL bumetanide 1 mg tablet 1 mg PO DAILY #2 tabs 10/29/24 11/27/24 torsemide 20 mg tablet See Rx Instructions PO QAM #270 11/20/24 11/27/24 tabs omeprazole 20 mg capsule,delayed 20 mg PO DAILY #90 tab-caps 11/21/24 11/27/24 release Previous Rx's ?Medication ?Instructions ?Recorded Toviaz 8 mg tablet,extended 8 mg PO DAILY #90 tabs 12/10/22 release (fesoterodine) acetaminophen 500 mg tablet 1,000 mg (2 x 500 mg) PO TID #90 02/02/23 tabs triamcinolone acetonide 0.1 % 1 applic topical BID #80 grams 01/10/24 topical cream ipratropium 0.5 mg-albuterol 3 mg 3 ml inhalation Q6H PRN wheezing 02/02/24 (2.5 mg base)/3 mL nebulization #540 mL soln albuterol sulfate 90 mcg/actuation 2 puff inhalation QID PRN 05/15/24 aerosol inhaler shortness of breath or wheezing #3 ea levothyroxine 75 mcg tablet 75 mcg PO DAILY #90 tabs 06/11/24 potassium chloride 20 mEq 20 meq PO BID #180 tabs 07/10/24 tablet,extended release(part/cryst) solifenacin 10 mg tablet (Vesicare) 10 mg PO DAILY #90 tabs 07/10/24 Breztri Aerosphere 160 2 inh inhalation BID #10.7 grams 10/20/24 mcg-9mcg-4.8mcg/actuation HFA aerosol inhaler (lwemavojiz-hqdjlxmh-vqklcdjfpy) promethazine 6.25 mg/5 mL oral 12.5 mg (10 mL) PO Q6H PRN cough 10/25/24 syrup #120 mL bumetanide 1 mg tablet 1 mg PO DAILY #2 tabs 10/29/24 torsemide 20 mg tablet See Rx Instructions PO QAM #270 11/20/24 tabs omeprazole 20 mg capsule,delayed 20 mg PO DAILY #90 tab-caps 11/21/24 release Allergies Allergy/AdvReac Type Severity Reaction Status Date / Time Sulfa (Sulfonamide Allergy Intermediate BURNING Verified 11/27/24 12:26 Antibiotics) TONGUE letrozole AdvReac Intermediate Insomnia, Verified 11/27/24 12:26 depression General Stated Complaint: RespSymp LALA: 3 Exam Narrative Exam Narrative: General Appearance: The patient is alert and oriented. She is speaking in complete sentences; however, she becomes very dyspneic and if she moves at all, she becomes hypoxic. Vital signs: Within normal limits. HEENT: Within normal limits. Respiratory: The patient has rhonchi and diminished breath sounds. She has accessory muscle usage with talking. Cardiovascular: The heart has a regular rate and rhythm. No murmurs or rubs detected. Gastrointestinal: There is no tenderness in the abdomen. Genitourinary: Female. Extremities: The patient has 1+ edema to bilateral lower extremities. No tenderness to calves bilaterally. Skin: Warm and dry, no rash. Neurological: Normal. Course Vital Signs Vital signs: Vital Signs Temperature 36.3 C L 11/27/24 12:30 Pulse 93 H 11/27/24 12:30 Respiratory Rate 21 11/27/24 12:30 Blood Pressure 179/48 H 11/27/24 12:30 Pulse Oximetry 91 L 11/27/24 12:30 Temperature 36.4 C L 11/27/24 12:37 Temperature Source Oral 11/27/24 12:37 Pulse 93 H 11/27/24 14:00 Respiratory Rate 15 11/27/24 14:00 Respiratory Effort Short of Breath 11/27/24 12:36 Respiratory Depth Deep 11/27/24 12:36 Blood Pressure 179/48 H 11/27/24 12:30 Blood Pressure Position Sitting 11/27/24 12:30 Pulse Oximetry 93 11/27/24 14:00 Oxygen Delivery Method Room Air 11/27/24 14:00 Oxygen Flow Rate 0 11/27/24 14:00 Pain Level 8 11/27/24 12:37 Comment with coughing 11/27/24 12:37 Lab/Test Results Lab/Test Results: Laboratory Tests Range/Units 11/27/24 11/27/24 11/27/24 12:45 13:20 14:35 WBC (4.4-10.8) 10^3/uL 9.03 RBC (3.93-5.22) 10^6/uL 3.53 L Hgb (11.2-15.7) g/dL 8.3 L Hct (36.0-46.0) % 29.2 L MCV (80-95) fL 83 MCH (27.0-33.0) pg 23.5 L MCHC (32.0-36.0) % 28.4 L RDW (11.7-14.6) % 16.1 H Plt Count (130-400) 10^3/uL 257 MPV (8.0-11.0) fL 8.9 Immature Gran % % 0.4 Neutrophils % % 69.0 Lymphocytes % % 17.4 Monocytes % % 11.1 Eosinophils % % 1.8 Basophils % % 0.3 Nucleated RBC % (0.0-0.3) % 0.2 Absolute Neutrophils (1.2-6.7) 10^3/uL 6.23 Absolute Lymphocytes (1.2-3.4) 10^3/uL 1.57 Absolute Monocytes (0.1-0.8) 10^3/uL 1.00 H Absolute Eosinophils (0.0-0.7) 10^3/uL 0.16 Absolute Basophils (0.0-0.2) 10^3/uL 0.03 Sodium (136-145) mmol/L 145 Potassium (3.5-5.1) mmol/L 3.6 Chloride (98-107) mmol/L 106 Carbon Dioxide (21.0-32.0) mmol/L 30.8 Anion Gap (3-11) mmol/L 8.2 BUN (7-18) mg/dL 14 Creatinine (0.55-1.02) mg/dL 1.0 Est GFR (CKD-EPI 2020) (mL/min/1.73m2) 56.25 Glucose (74-106) mg/dL 96 Calcium (8.5-10.1) mg/dL 8.7 Magnesium (1.8-2.4) mg/dL 2.1 Total Bilirubin (0.2-1.0) mg/dL 0.19 L AST (15-37) U/L 14 L ALT (14-59) U/L 19 Alkaline Phosphatase (46-116) U/L 105 Troponin I (<or=51) ng/L 7 9 NT-Pro-B Natriuret Pep (<300) pg/mL 263 Total Protein (6.4-8.2) g/dL 7.0 Albumin (3.4-5.0) g/dL 3.0 L TSH (0.36-3.74) uIU/mL 0.63 COVID-19 Source Nasopharynx SARS-CoV-2 (PCR) (Negative) Negative Influenza Type A (PCR) (Negative) Negative Influenza Type B (PCR) (Negative) Negative RSV (PCR) (Negative) Negative Medical Decision Making Laboratory Studies Hemoglobin dropped from 10 to 8.4 over the past 4 months. Guaiac test was negative. Imaging Prior CT scan showed emphysema. Last echocardiogram showed an ejection fraction of 55 to 60% without any obvious abnormalities. Initial Assessment: 84-year-old female with history of COPD, CHF, hypothyroidism, respiratory failure, and renal insufficiency presents with worsening shortness of breath, dyspnea, and productive cough over the past several weeks. She has been unable to ambulate around her house for the past 4 days and has been using oxygen continuously. Differential Diagnosis: - COPD exacerbation: Exam consistent with COPD exacerbation. Solu-Medrol and two nebulizer treatments administered. Mild improvement after albuterol and DuoNeb. Ambulatory trial resulted in hypoxia (85%) and significant dyspnea. Oxygen supplementation withheld due to emphysema and normal oxygen saturation levels. Doxycycline prescribed. - Respiratory failure: Case discussed with admitting hospitalist. Admission required for respiratory failure. - Anemia: Hemoglobin decreased from 10 to 8.4 over past 4 months. Reports daily bleeding and history of colon cancer. No colonoscopy in 3 years. Guaiac test negative for visible blood. Monitoring needed. - CHF: Reports swelling in calves and recent decrease in torsemide dosage. Last echocardiogram showed ejection fraction of 55-60% without obvious abnormalities. ED Course: - Solu-Medrol administered. - Two nebulizer treatments given, one in the ambulance. - Reviewed last echocardiogram showing ejection fraction of 55-60%. - Albuterol and DuoNeb treatments provided mild improvement. - Ambulatory trial attempted, resulted in hypoxia (85%) and significant dyspnea. - Guaiac test performed, negative for visible blood. - Discussed case with admitting hospitalist for admission. - Doxycycline ordered for COPD exacerbation. - Patient expressed desire for DNR/DNI status, confirmed through discussions with her son. Final Assessment: Patient with COPD exacerbation, respiratory failure, anemia, and CHF. Treatments included Solu-Medrol, nebulizer treatments, and doxycycline. Admission required for respiratory failure. Monitoring for anemia and CHF needed. Clinical Impression: - COPD exacerbation - Respiratory failure - Anemia - CHF Disposition: - Admission: Patient requires admission for respiratory failure. MDM Components Evaluation: - Number of Differential Diagnoses or Management Options: COPD exacerbation, respiratory failure, anemia, CHF. - Amount and Complexity of Data Reviewed: Reviewed last echocardiogram, guaiac test performed, discussed case with admitting hospitalist. - Risk of Complication and Morbidity or Mortality: High risk due to respiratory failure, COPD exacerbation, anemia, and CHF. Quality:[facility] Health Related Social Needs: Health related social needs housing instability, house d, with risk of homelessness (Z59.811) [facility] All Active Problems (Updated 02/04/25 @ 16:26 by Vidhi Vásquez APRN) Contraindication to deep vein thrombosis (DVT) prophylaxis (Acute) Anemia (Chronic) COPD exacerbation (Acute) Trigger finger, left ring finger (Acute) Former smoker (Acute) Hypoxic respiratory failure (Acute) Renal insufficiency (Chronic) Trigger finger, left little finger (Acute) DOS: 06/21/23 Hypothyroid (Chronic) Chronic obstructive lung disease, type A (Chronic 03/26/13) Essential hypertension (Acute 10/05/13) Gastroesophageal reflux disease without esophagitis (Chronic) Obesity (Chronic) Ascending aorta dilatation (Acute) 3.7 cm on 11/2019 SOB (shortness of breath) (Acute) Screening for colon cancer (Acute) Hyperplastic colon polyp (Acute) Serrated adenoma of colon (Acute) Cough (Acute) Peripheral neuropathy (Acute) Ankle pain (Acute) Edema (Acute) Hypoxia (Acute) Medical History Contusion of arm, right Muscle strain of right upper arm Edema Ulnar neuropathy Carpal tunnel syndrome Smoker 1PPD/47 years--quit 10/24/2002 Asthma Cholecystitis 10/29/09 unspecified Impacted cerumen of right ear 01/15/15 Vitamin D deficiency disease (08/12/08) Tinnitus (01/15/15) Sensory hearing loss, bilateral (01/15/15) Osteoarthritis of right knee (10/29/15) 10/29/15; END STAGE RIGHT KNEE Metastatic colon cancer in female (01/23/17) 01/23/2017; 11/06 L.N. + ; S/P RIGHT HEMICOLECTOMY Malignant neoplasm of female breast (12/21/08) left mastectomy Hiatal hernia (09/02/08) Urinary, incontinence, stress female (05/04/11) Diverticulosis of colon without diverticulitis (11/19/08) As found during colonoscopy on 11/06/08 Disorder of vitamin B12 Anticoagulated on warfarin W/U neg. Breast cancer Colon polyp Renal insufficiency, mild Surgical History History of total bilateral knee replacement (TKR) Left carpal tunnel syndrome S/P ECTR: 02/02/2023 History of colonoscopy (~12/2021) Status post cholecystectomy Status post laparoscopic hysterectomy Status post left mastectomy (12/10/14) b/l S/P laparoscopic hysterectomy S/P total knee replacement left-2002; right-10/2005 Hysterectomy, Laproscopic (~1978) Hemicolectomy (01/23/17) RIGHT Colonoscopy - MAC (05/12/18) Colonoscopy - MAC (04/12/17) Cholecystectomy (~10/2009) Breast, Mastectomy Bilat Arthroplasty 10/29/15; RIGHT KNEE; DR. FORBES Family History Mother , 71 Heart disease Colon cancer Father , 75 Essential hypertension Heart disease Alcohol abuse Maternal Grandfather , 82 Essential hypertension Heart disease Stroke Paternal Grandfather , 62 Heart disease Maternal Grandmother , 88 Essential hypertension Breast cancer Paternal Grandmother , 98 Diabetes Essential hypertension Stroke Sister Asthma Sister No problems noted. Sister No problems noted. Son No problems noted. Son No problems noted. Son No problems noted. Social History Smoking/Tobacco Use Status: Former Tobacco Use tobacco type: cigarettes Quit Date: 10/24/05 Tobacco: How many years used: 50 Second Hand Exposure: Yes Smoking risk assessment performed?: Yes Alcohol Intake: never Drug use: Never Substance use type: does not use Caregiver/Support person: No Household members: other Housing: apartment Communication Needs: None current occupation: [employer] Pets and animals: No Sexually active: No Do you think of yourself as: straight/heterosexual Current gender identity: female What is your relationship status?: How often do you talk on the phone with friends or family?: three or more times per week How often do you get together with friends or relatives?: three or more times per week How often do you attend islam or methodist services?: decline to answer Do you belong to any clubs or organized social groups?: no Panel score (0-1 are the most socially isolated patients): 1 What type of physical activity do you participate in: other Details: Treadmill Duration: 15-30 minutes/day Frequency: daily Tabatha/Yazidism: Shinto Special tabatha needs: No Seatbelt use: always Helmet use: No Drive intox or ride w/intox sales route driver: No Do you feel safe at home: Yes Do you feel safe in your relationship?: Yes Additional Social history: lives alone
[2024-11-27] MEDS: Doxycycline Hyclate 100 MG CAP PO (16:01)
[2024-11-27 16:15] LABS: Iron 11 ug/dL (50-170); Total Iron Binding Capacity 399 ug/dL (250-450); Transferrin Sat 3 % (15-50)
[2024-11-27 16:44] LABS: Folate 15.1 ng/mL (8.6-20.0); Vitamin B12 311 pg/mL (193-986)
[2024-11-27 16:44] LABS: Troponin I 12 ng/L (<or=51)
--- NOTE | 2024-11-27 17:47 | W.PC.ACHO ---
Registration Status: Primary Language: Preferred Language: ED Information & Data Chief Complaint RespSymp 11/27/24 15:28 Triage Note pt with hx of COPD and 11/27/24 12:30 recent resp infection on abx over 3 weeks ago, now with green sputum production and worsening cough/SOB, pt alert and oriented, taking all meds as prescribed, no recent weight gain, O2 84-89 after amb to bed, 91-95 on RA, SOB/LONG, speaking in halting sentence, afebrile. Medical / Surgical History (Last Reviewed 09/14/24 @ 14:33 by Luke Marquez MD) Contusion of arm, right Muscle strain of right upper arm Edema Ulnar neuropathy Carpal tunnel syndrome Smoker Asthma Cholecystitis Impacted cerumen of right ear Vitamin D deficiency disease (08/12/08) Tinnitus (01/15/15) Sensory hearing loss, bilateral (01/15/15) Osteoarthritis of right knee (10/29/15) Metastatic colon cancer in female (01/23/17) Malignant neoplasm of female breast (12/21/08) Hiatal hernia (09/02/08) Urinary, incontinence, stress female (05/04/11) Diverticulosis of colon without diverticulitis (11/19/08) Disorder of vitamin B12 Anticoagulated on warfarin Breast cancer Colon polyp Renal insufficiency, mild (Last Reviewed 09/14/24 @ 14:33 by Luke Marquez MD) History of total bilateral knee replacement (TKR) Left carpal tunnel syndrome History of colonoscopy (~12/2021) Status post cholecystectomy Status post laparoscopic hysterectomy Status post left mastectomy (12/10/14) S/P laparoscopic hysterectomy S/P total knee replacement Hysterectomy, Laproscopic (~1978) Hemicolectomy (01/23/17) Colonoscopy - MAC (05/12/18) Colonoscopy - MAC (04/12/17) Cholecystectomy (~10/2009) Breast, Mastectomy Arthroplasty Most Recent Vital Signs Temperature 36.4 C L 11/27/24 12:37 Temperature Source Oral 11/27/24 12:37 Pulse 92 H 11/27/24 17:30 Pulse 92 H 11/27/24 17:30 Respiratory Rate 39 H 11/27/24 17:30 Respiratory Effort Short of Breath 11/27/24 12:36 Respiratory Depth Deep 11/27/24 12:36 Blood Pressure 153/52 H 11/27/24 17:28 Blood Pressure Mean 88 11/27/24 17:28 Blood Pressure Position Sitting 11/27/24 12:30 Pulse Oximetry 93 11/27/24 17:30 Oxygen Delivery Method Room Air 11/27/24 14:00 Oxygen Flow Rate 0 11/27/24 14:00 Pain Level 8 11/27/24 12:37 Comment with coughing 11/27/24 12:37 Allergies Sulfa (Sulfonamide Antibiotics) Allergy (Intermediate, Verified 11/27/24 12:26) BURNING TONGUE letrozole Adverse Reaction (Intermediate, Verified 11/27/24 12:26) Insomnia, depression Precautions Isolation PUI 11/27/24 12:40 IV IV Catheter Type [Left Saline Lock Antecubital] IV Catheter Gauge [Left 18 Antecubital] Diagnostics 11/27/24 11/27/24 11/27/24 Range/Units 16:20 14:35 13:20 WBC (4.4-10.8) 10^3/uL RBC (3.93-5.22) 10^6/uL Hgb (11.2-15.7) g/dL Hct (36.0-46.0) % MCV (80-95) fL MCH (27.0-33.0) pg MCHC (32.0-36.0) % RDW (11.7-14.6) % Plt Count (130-400) 10^3/uL MPV (8.0-11.0) fL Immature Gran % % Neutrophils % % Lymphocytes % % Monocytes % % Eosinophils % % Basophils % % Nucleated RBC % (0.0-0.3) % Absolute Neutrophils (1.2-6.7) 10^3/uL Absolute Lymphocytes (1.2-3.4) 10^3/uL Absolute Monocytes (0.1-0.8) 10^3/uL Absolute Eosinophils (0.0-0.7) 10^3/uL Absolute Basophils (0.0-0.2) 10^3/uL Sodium (136-145) mmol/L Potassium (3.5-5.1) mmol/L Chloride (98-107) mmol/L Carbon Dioxide (21.0-32.0) mmol/L Anion Gap (3-11) mmol/L BUN (7-18) mg/dL Creatinine (0.55-1.02) mg/dL Est GFR (CKD-EPI 2020) (mL/min/1.73m2) Glucose (74-106) mg/dL Calcium (8.5-10.1) mg/dL Magnesium (1.8-2.4) mg/dL Iron (50-170) ug/dL TIBC (250-450) ug/dL Transferrin % Sat (15-50) % Total Bilirubin (0.2-1.0) mg/dL AST (15-37) U/L ALT (14-59) U/L Alkaline Phosphatase (46-116) U/L Troponin I 12 9 (<or=51) ng/L NT-Pro-B Natriuret Pep (<300) pg/mL Total Protein (6.4-8.2) g/dL Albumin (3.4-5.0) g/dL Vitamin B12 (193-986) pg/mL Folate (8.6-20.0) ng/mL TSH (0.36-3.74) uIU/mL COVID-19 Source Nasopharynx SARS-CoV-2 (PCR) Negative (Negative) Influenza Type A (PCR) Negative (Negative) Influenza Type B (PCR) Negative (Negative) RSV (PCR) Negative (Negative) 11/27/24 Range/Units 12:45 WBC 9.03 (4.4-10.8) 10^3/uL RBC 3.53 L (3.93-5.22) 10^6/uL Hgb 8.3 L (11.2-15.7) g/dL Hct 29.2 L (36.0-46.0) % MCV 83 (80-95) fL MCH 23.5 L (27.0-33.0) pg MCHC 28.4 L (32.0-36.0) % RDW 16.1 H (11.7-14.6) % Plt Count 257 (130-400) 10^3/uL MPV 8.9 (8.0-11.0) fL Immature Gran % 0.4 % Neutrophils % 69.0 % Lymphocytes % 17.4 % Monocytes % 11.1 % Eosinophils % 1.8 % Basophils % 0.3 % Nucleated RBC % 0.2 (0.0-0.3) % Absolute Neutrophils 6.23 (1.2-6.7) 10^3/uL Absolute Lymphocytes 1.57 (1.2-3.4) 10^3/uL Absolute Monocytes 1.00 H (0.1-0.8) 10^3/uL Absolute Eosinophils 0.16 (0.0-0.7) 10^3/uL Absolute Basophils 0.03 (0.0-0.2) 10^3/uL Sodium 145 (136-145) mmol/L Potassium 3.6 (3.5-5.1) mmol/L Chloride 106 (98-107) mmol/L Carbon Dioxide 30.8 (21.0-32.0) mmol/L Anion Gap 8.2 (3-11) mmol/L BUN 14 (7-18) mg/dL Creatinine 1.0 (0.55-1.02) mg/dL Est GFR (CKD-EPI 2020) 56.25 (mL/min/1.73m2) Glucose 96 (74-106) mg/dL Calcium 8.7 (8.5-10.1) mg/dL Magnesium 2.1 (1.8-2.4) mg/dL Iron 11 L (50-170) ug/dL TIBC 399 (250-450) ug/dL Transferrin % Sat 3 L (15-50) % Total Bilirubin 0.19 L (0.2-1.0) mg/dL AST 14 L (15-37) U/L ALT 19 (14-59) U/L Alkaline Phosphatase 105 (46-116) U/L Troponin I 7 (<or=51) ng/L NT-Pro-B Natriuret Pep 263 (<300) pg/mL Total Protein 7.0 (6.4-8.2) g/dL Albumin 3.0 L (3.4-5.0) g/dL Vitamin B12 311 (193-986) pg/mL Folate 15.1 (8.6-20.0) ng/mL TSH 0.63 (0.36-3.74) uIU/mL COVID-19 Source SARS-CoV-2 (PCR) (Negative) Influenza Type A (PCR) (Negative) Influenza Type B (PCR) (Negative) RSV (PCR) (Negative) Intake and Output - 24 Hour Total 11/27/24 12:16 thru 11/27/24 12:30 Weight 95 kg Falls Risk Assessment History of Falls No History 11/27/24 13:04 Contributing Factors No Factors 11/27/24 13:04 Ambulatory Aids Independent 11/27/24 13:04 Tubes/Lines None 11/27/24 13:04 Gait Evaluation No gait disturbance 11/27/24 13:04 Cognition No cognitive impairment 11/27/24 13:04 Fall Total Score 0 11/27/24 13:04 Level of Risk Standard/Low Risk 11/27/24 13:04 Problems (Last Reviewed 09/14/24 @ 14:33 by Luke Marquez MD) Contraindication to deep vein thrombosis (DVT) prophylaxis (Acute) Anemia (Chronic) COPD exacerbation (Acute) Hypoxic respiratory failure (Acute) Hypothyroid (Chronic) Essential hypertension (Acute 10/05/13) Gastroesophageal reflux disease without esophagitis (Chronic) v v v v v v v v v Sending and/or Receiving Nurses: Please use comment section below to note any information pertinent to the patient hand-off not included above. Information / Comments: Presented w/ recent respiratory infection (failed out patient) Thick yellow/schaefer sputum. Lungs: Wheezes throughout which improved since first admitted. Respirations 14-29 (hypoxic w/ activity) 18g LAC, Afibrile, BP 153/62 Patient reported rectal bleeding. Totally AxO. Patient received SoluMedrol in ED. Accompanied by cal Lopez Report received from: KENNEDY Garcia (ED) @ 17:30
[2024-11-27] MEDS: Azithromycin 250 MG TAB 500 MG PO (18:43)
[2024-11-27] MEDS: Normal Saline Flush 10 ML SYR IVP ×2 (18:43→20:01)
[2024-11-27] MEDS: Albuterol/Ipratropium 3 ML UPD VIAL IH ×2 (18:46→23:48)
--- NOTE | 2024-11-27 18:51 | RESPIRATORY ---
11/27/2024 Pt states she does use home Oxygen as needed at home. Pt states she typically puts it on when her SPO2 drops below 90%. Pt states she got an O2 prescription from DR. Negrete and bought an Inogen directly from the [employer]. She states that lately she has been wearing O2 to get out to her car. Pt typically wears 2L
[2024-11-27] MEDS: Potassium Chloride 20 MEQ TABCR PO (20:01)
[2024-11-27] MEDS: Triamcinolone 0.1% CR 15 GM TUBE TP (21:58)
[2024-11-28] VITALS (12 sets, daily range): BP systolic 122–162; BP diastolic 47–56; PULSE 78–100; RESP 5–19; TEMP 36.5–37.9; O2SAT 83–99
[2024-11-28] MEDS: Levothyroxine 75 MCG TAB PO (05:12)
[2024-11-28] MEDS: Albuterol/Ipratropium 3 ML UPD VIAL IH ×4 (05:47→23:57)
[2024-11-28 07:06] LABS: Abs Immature Grans 0.05 10^3/uL (0.0-0.06); Absolute Basophil Count 0.01 10^3/uL (0.0-0.2); Absolute Lymphocyte Count 1.04 10^3/uL (1.2-3.4); Absolute Monocyte Count 0.58 10^3/uL (0.1-0.8); Absolute Neutrophil Count 7.67 10^3/uL (1.2-6.7); Basophils % 0.1 %; HCT 26.9 % (36.0-46.0); HGB 7.7 g/dL (11.2-15.7); Immature Grans % 0.5 %; Lymphocytes % 11.1 %; MCH 23.2 pg (27.0-33.0); MCHC 28.6 % (32.0-36.0); MCV 81 fL (80-95); MPV 9.9 fL (8.0-11.0); Monocytes % 6.2 %; Neutrophils % 82.1 %; Platelet Count 258 10^3/uL (130-400); RBC 3.32 10^6/uL (3.93-5.22); RDW 15.9 % (11.7-14.6); RDW-SD 47.3 fL; WBC 9.35 10^3/uL (4.4-10.8)
[2024-11-28 07:19] LABS: Anion Gap 9.2 mmol/L (3-11); BUN 18 mg/dL (7-18); CO2 26.8 mmol/L (21.0-32.0); Calcium 8.7 mg/dL (8.5-10.1); Chloride 107 mmol/L (98-107); Estimated GFR 56.25 (mL/min/1.73m2); Glucose 139 mg/dL (74-106); Potassium 3.9 mmol/L (3.5-5.1); Sodium 143 mmol/L (136-145)
[2024-11-28] MEDS: Multivitamin TAB 1 TAB PO (08:37)
[2024-11-28] MEDS: Cholecalciferol (Vitamin D3) 1,000 UNIT TAB 1000 UNITS PO (08:37)
[2024-11-28] MEDS: Bumetanide 1 MG TAB PO (08:37)
[2024-11-28] MEDS: Aspirin 81 MG CHEW PO (08:37)
[2024-11-28] MEDS: Azithromycin 250 MG TAB 500 MG PO (08:37)
[2024-11-28] MEDS: Potassium Chloride 20 MEQ TABCR PO ×2 (08:37→19:48)
[2024-11-28] MEDS: Ascorbic Acid 500 MG TAB PO (08:37)
[2024-11-28] MEDS: Folic Acid 1 MG TAB PO (08:38)
[2024-11-28] MEDS: Omeprazole 20 MG CAPCR PO (08:38)
[2024-11-28] MEDS: Cyanocobalamin 500 MCG TAB PO (08:38)
[2024-11-28] MEDS: Triamcinolone 0.1% CR 15 GM TUBE TP ×2 (08:39→19:50)
[2024-11-28] MEDS: Torsemide 20 MG TAB 40 MG PO (08:39)
[2024-11-28] MEDS: Normal Saline Flush 10 ML SYR IVP ×2 (08:40→19:49)
[2024-11-28] MEDS: predniSONE 20 MG TAB 40 MG PO (08:55)
--- NOTE | 2024-11-28 14:24 | W.PM.PROGNOT ---
Date of Service Date of service: 11/28/24 Time of Service: 14:24 Assessment and Plan Assessment and plan (1) COPD exacerbation: Status: Acute Assessment and plan: hest Ct on admit showed no acute findings upon presentation with increased shortness of breath with hypoxia and increased cough and sputum production Chest imaging :emphysematous changes which is correlating with her previous diagnostic of COPD Continue azithromycin 500 mg oral day 2 of 3 Continue oral prednisone Sputum culture ordered- report of alaniz-colored sputum BNP < 500- will not increase diuretics - will continue home dose Pumonology referral at D/C- Dr. Nguyen questioned mixed COPD-Asthma in note of 2023 (2) Hypoxic respiratory failure: Status: Acute Assessment and plan: Presenting with shortness of breath and hypoxia on ambulation with intolerance to minimal exercise. Improving- despite sat down to 85% on ambulation w quick recovery- 95% at rest Will continue to monitor And as above (3) Hypothyroid: Status: Chronic Assessment and plan: On home dose levothyroxine (4) Essential hypertension: Status: Acute Assessment and plan: continue home medicine regimen (5) Anemia: Status: Chronic Assessment and plan: most likely chronic but had a drop of 2 points in the past 4 months which most likely is not the cause of hypoxia at this time with COPD exacerbation being more probable etiology vs mixed etiologies. Patient mentioned daily hematochezia with blood cloton 11/27/24 - stool guaiac still pending continue home dose PPI The anemia does not appear to be microcytic with normal MCV and low MCH- But iron studies revealed Fe at 11, and transferrin sat at 3%- Will supplement iron IV then oral Normal folate - will discontinue supplementation B12- 311 but as an acute phase reactant, it would be beneficial for the patient to continue supplementation CBC in a.m. Surgical consult for GI bleed if guaiac is positive for acute sign of GI bleeding confirmed (6) Gastroesophageal reflux disease without esophagitis: Status: Chronic Assessment and plan: On home dose PPI Consider Protonix IV twice daily if GI bleed confirmed by stool for occult blood results (7) Contraindication to deep vein thrombosis (DVT) prophylaxis: Status: Acute Assessment and plan: TEDs or SCDs Discussed with Dr. Cadet Subjective Subjective Patient reports: feels better, tolerating liquids well, tolerating a regular diet, voiding w/o difficulty, bowel movement and shortness of breath (improving ); denies diarrhea, nausea, vomiting or fever Exam Narrative Exam Narrative: Constitutional Sitting in chair w/o acute distress, speaks full sentences w/o labored respirations Neuro:alert and oriented X4 , non focal Resp: left upper lung field exp wheezing- clear otherwise Cardio: regular rhythm, S1, S2, no murmur, bilateral radial and dorsalis pedis pulses are positive, palpable GI: Abdomen is not distended, soft and non tender, bowel sounds are present Integumentary: No skin lesions or rash, bilat mastectomy Extremities: strength 5/5 to bilateral lower and upper extremities Psych: RASS 0, congruent mood and normal affect. Objective Last Vital Signs Temp 36.7 C 11/28/24 11:44 Pulse 100 H 11/28/24 11:44 Resp 15 11/28/24 11:44 BP 162/54 H 11/28/24 11:44 Pulse Ox 95 11/28/24 11:44 Laboratory Results - last 24 hr 11/27/24 11/27/24 11/27/24 12:45 14:35 16:20 WBC RBC Hgb Hct MCV MCH MCHC RDW Plt Count MPV Immature Gran % Neutrophils % Lymphocytes % Monocytes % Eosinophils % Basophils % Nucleated RBC % Absolute Neutrophils Absolute Lymphocytes Absolute Monocytes Absolute Eosinophils Absolute Basophils Sodium Potassium Chloride Carbon Dioxide Anion Gap BUN Creatinine Est GFR (CKD-EPI 2020) Glucose Calcium Magnesium Iron 11 L TIBC 399 Transferrin % Sat 3 L Troponin I 9 12 Vitamin B12 311 Folate 15.1 11/28/24 06:35 WBC 9.35 RBC 3.32 L Hgb 7.7 L Hct 26.9 L MCV 81 MCH 23.2 L MCHC 28.6 L RDW 15.9 H Plt Count 258 MPV 9.9 Immature Gran % 0.5 Neutrophils % 82.1 Lymphocytes % 11.1 Monocytes % 6.2 Eosinophils % 0.0 Basophils % 0.1 Nucleated RBC % 0.0 Absolute Neutrophils 7.67 H Absolute Lymphocytes 1.04 L Absolute Monocytes 0.58 Absolute Eosinophils 0.00 Absolute Basophils 0.01 Sodium 143 Potassium 3.9 Chloride 107 Carbon Dioxide 26.8 Anion Gap 9.2 BUN 18 Creatinine 1.0 Est GFR (CKD-EPI 2020) 56.25 Glucose 139 H Calcium 8.7 Magnesium 2.0 Iron TIBC Transferrin % Sat Troponin I Vitamin B12 Folate Time Spent with Patient Time Spent with Patient: >50 minutes Time was spent: preparing to see the patient(eg.review tests), obtaining and/or reviewing separately otained hiistory, ordering medications,tests, procedures, referring, communicating with other health manager critical care unit, indepentently interpreting results, counseling the patient and care coordination
[2024-11-28] MEDS: IRON SUCROSE COMPLEX 300 MG in Normal Saline 250 ML 167 MG IVPB (14:44)
--- NOTE | 2024-11-28 17:21 | CHAPLAIN ---
Kelly was sitting up in bed when I visited. She was very pleasant and said she's waiting to speak with the hospitalist to see what her plan of care is. I explained my role and offered support.
--- NOTE | 2024-11-28 18:30 | PDOC.CMIN ---
Care Management Initial Assmt Initial Assessment Reason for Hospitalization: COPD exacerbation Functional Status/Living Situation Patient Presentation: Kelly was sitting up in a chair visiting with her granddaughter Cherri and grandson John. She was pleasant in interaction and agreeable to conversation. When asked about the origin of her name she stated that it was a combination of her grandmother's 2 best friends' names Jillian and Mily. Kelly has 3 sons, all of whom live out of state. Two live in [place] and one lives in [place]. She also has 5 grandchildren. Cherri and John and one other grandchild live locally; the others live out of state. Kelly lives alone in an apartment in [place]. She is independent with ADLs and self care and does not receive any services. Kelly did share that she has home oxygen but has recently learned that she should not be using it. She has COPD and was maintaining her oxygen saturation in the high 90s. She was not wearing oxygen at the time of the visit and her oxygen saturation was at 95%. Town of Residence: [place] Resides with: Alone Natural Supports: children and grandchildren Employment Status: Retired Instrumental Activities of Daily Living (ADLs): Independent Medications Medication Management: No Issues/Barriers identified Physical Functioning/Mobility Assistive Device: uses a cane occasionally Advance Directives Advance Directives: Do you have an Advance Directive: Y 11/26/21 12:[address] [facility]: Y 11/26/21 12:05 Date Asked 12/05/18 11/26/21 12:05 AD Date Reviewed 11/27/24 11/27/24 12:[address] [facility] COLST Date Scanned Code Status Resuscitation Status DNR/DNI Insurance Coverage/Financial Issues Insurance: [employer] Medicare replacement Care Team Visit Care Team Role Provider Type Poly Copeland MD, [place] Primary Care Provider [facility]ANO MEDICAL STAFF SARAH Orantes Emergency Provider [facility] Robert Cadet MD Admit Provider [facility] STAFF PHYSICIAN Attending Provider Discharge Potential Discharge Needs: PT Evaluation and PCP F/U Appt Anticipated Barriers to Discharge: None Identified Patient/Family Education Needs: Review discharge instructions, discuss Ask Me Three Transportation: Private vehicle Plan: Anticipate Kelly will be discharged home, possibly with new home health services for PT and [facility], when medically stable. She will follow up with her community providers and plan of care and transport with one of her grandchildren. CM will follow and continue to assess for discharge needs. Social Determinants of Health Screening Social Determinants of Health last assessed: 11/28/24 Will the Patient Participate in the Screening?: Yes Do you worry about having a steady place to live?: no Problems where you live: no known problems In the past 12 months, have you had to go without electric, gas, oil or water in your home?: no Have you or anyone in your house had to go without enough food to eat?: no Has lack of transportation kept you from medical appointments or from doing things needed for daily living?: no Has anyone in your life made you feel unsafe or unsupported?: no How hard is it for you to pay for the very basics like food, housing, medical care, and heating? Would you say it is:: Not hard at all Do you want help finding or keeping work or a job?: I do not need or want help If for any reason you need help with day-to-day activities such as bathing, preparing meals, shopping, managing finances, etc., do you get the help you need?: I get all the help I need How often do you feel lonely or isolated from those around you?: Never Do you speak a language other than Cypriot at home?: No Does the patient want assistance with any of the above?: No PFSH All Active Problems (Updated 11/27/24 @ 16:26 by Vidhi Vásquez APRN) Contraindication to deep vein thrombosis (DVT) prophylaxis (Acute) Anemia (Chronic) COPD exacerbation (Acute) Trigger finger, left ring finger (Acute) Former smoker (Acute) Hypoxic respiratory failure (Acute) Renal insufficiency (Chronic) Trigger finger, left little finger (Acute) DOS: 06/21/23 Hypothyroid (Chronic) Chronic obstructive lung disease, type A (Chronic 03/26/13) Essential hypertension (Acute 10/05/13) Gastroesophageal reflux disease without esophagitis (Chronic) Obesity (Chronic) Ascending aorta dilatation (Acute) 3.7 cm on 11/2019 SOB (shortness of breath) (Acute) Screening for colon cancer (Acute) Hyperplastic colon polyp (Acute) Serrated adenoma of colon (Acute) Cough (Acute) Peripheral neuropathy (Acute) Ankle pain (Acute) Edema (Acute) Hypoxia (Acute) Medical History Contusion of arm, right Muscle strain of right upper arm Edema Ulnar neuropathy Carpal tunnel syndrome Smoker 1PPD/47 years--quit 10/24/2002 Asthma Cholecystitis 10/29/09 unspecified Impacted cerumen of right ear 01/15/15 Vitamin D deficiency disease (08/12/08) Tinnitus (01/15/15) Sensory hearing loss, bilateral (01/15/15) Osteoarthritis of right knee (10/29/15) 10/29/15; END STAGE RIGHT KNEE Metastatic colon cancer in female (01/23/17) 01/23/2017; 11/06 L.N. + ; S/P RIGHT HEMICOLECTOMY Malignant neoplasm of female breast (12/21/08) left mastectomy Hiatal hernia (09/02/08) Urinary, incontinence, stress female (05/04/11) Diverticulosis of colon without diverticulitis (11/19/08) As found during colonoscopy on 11/06/08 Disorder of vitamin B12 Anticoagulated on warfarin W/U neg. Breast cancer Colon polyp Renal insufficiency, mild Surgical History History of total bilateral knee replacement (TKR) Left carpal tunnel syndrome S/P ECTR: 02/02/2023 History of colonoscopy (~12/2021) Status post cholecystectomy Status post laparoscopic hysterectomy Status post left mastectomy (12/10/14) b/l S/P laparoscopic hysterectomy S/P total knee replacement left-2002; right-10/2005 Hysterectomy, Laproscopic (~1978) Hemicolectomy (01/23/17) RIGHT Colonoscopy - MAC (05/12/18) Colonoscopy - MAC (04/12/17) Cholecystectomy (~10/2009) Breast, Mastectomy Bilat Arthroplasty 10/29/15; RIGHT KNEE; DR. FORBES Family History Mother , 71 Heart disease Colon cancer Father , 75 Essential hypertension Heart disease Alcohol abuse Maternal Grandfather , 82 Essential hypertension Heart disease Stroke Paternal Grandfather , 62 Heart disease Maternal Grandmother , 88 Essential hypertension Breast cancer Paternal Grandmother , 98 Diabetes Essential hypertension Stroke Sister Asthma Sister No problems noted. Sister No problems noted. Son No problems noted. Son No problems noted. Son No problems noted. Social History Smoking/Tobacco Use Status: Former Tobacco Use tobacco type: cigarettes Quit Date: 10/24/05 Tobacco: How many years used: 50 Second Hand Exposure: Yes Smoking risk assessment performed?: Yes Alcohol Intake: never Drug use: Never Substance use type: does not use Caregiver/Support person: No Household members: other Housing: apartment Communication Needs: None current occupation: [employer] Pets and animals: No Sexually active: No Do you think of yourself as: straight/heterosexual Current gender identity: female What is your relationship status?: How often do you talk on the phone with friends or family?: three or more times per week How often do you get together with friends or relatives?: three or more times per week How often do you attend anabaptist or episcopal services?: decline to answer Do you belong to any clubs or organized social groups?: no Panel score (0-1 are the most socially isolated patients): 1 What type of physical activity do you participate in: other Details: Treadmill Duration: 15-30 minutes/day Frequency: daily Tabatha/Bahai: Uatsdin Special tabatha needs: No Seatbelt use: always Helmet use: No Drive intox or ride w/intox school bus driver/mechanic: No Do you feel safe at home: Yes Do you feel safe in your relationship?: Yes Additional Social history: lives alone
[2024-11-28] MEDS: Polyethylene Glycol 3350 17 GM PACKET PO (20:08)
[2024-11-29] VITALS (15 sets, daily range): BP systolic 110–130; BP diastolic 50–77; PULSE 76–105; RESP 2–20; TEMP 36.1–37.1; O2SAT 88–100
[2024-11-29] MEDS: Albuterol/Ipratropium 3 ML UPD VIAL IH ×4 (05:37→21:38)
[2024-11-29] MEDS: Levothyroxine 75 MCG TAB PO (06:14)
--- NOTE | 2024-11-29 09:33 | CMPROGNOTE_ITS ---
Date of service: 11/29/24 Time of Service: 09:33 Care Management Progress Note Progress Note Text Progress Note Text: Kelly was sitting up in a chair when CM met with her. She appeared to be in good spirits and stated that she is feeling well. Kelly talked a bit about her late and his illnesses and subsequent . He had been sick for a few years and ultimately at [facility]. Kelly had nothing but praise for the medical and nursing staff at [facility]. She informed CM that she has an appointment in their Pulmonology Department on 12/18/24. She was excited to be able to get an appointment so soon and is scheduled to have a PFT that day befor e seeing the doctor. If Kelly continues to feel well,it is likely she will discharge home tomorrow. Discharge Potential Discharge Needs: PCP F/U Appt Anticipated Barriers to Discharge: None Identified Patient/Family Education Needs: Review discharge instructions, discuss Ask Me Three Transportation: Private vehicle Plan: Anticipate Kelly will be discharged home, possibly with new home health services for PT and [facility], when medically stable. She will follow up with her community providers and plan of care and transport with one of her grandchildren. CM will follow and continue to assess for discharge needs. Social Determinants of Health Screening Social Determinants of Health last assessed: 11/29/24 Will the Patient Participate in the Screening?: Yes Do you worry about having a steady place to live?: no Problems where you live: no known problems In the past 12 months, have you had to go without electric, gas, oil or water in your home?: no Have you or anyone in your house had to go without enough food to eat?: no Has lack of transportation kept you from medical appointments or from doing things needed for daily living?: no Has anyone in your life made you feel unsafe or unsupported?: no How hard is it for you to pay for the very basics like food, housing, medical care, and heating? Would you say it is:: Not hard at all Do you want help finding or keeping work or a job?: I do not need or want help If for any reason you need help with day-to-day activities such as bathing, preparing meals, shopping, managing finances, etc., do you get the help you need?: I get all the help I need How often do you feel lonely or isolated from those around you?: Never Do you speak a language other than Indian at home?: No Does the patient want assistance with any of the above?: No
[2024-11-29] MEDS: Torsemide 20 MG TAB 40 MG PO (09:49)
[2024-11-29] MEDS: Aspirin 81 MG CHEW PO (09:49)
[2024-11-29] MEDS: Multivitamin TAB 1 TAB PO (09:49)
[2024-11-29] MEDS: Potassium Chloride 20 MEQ TABCR PO ×2 (09:49→19:48)
[2024-11-29] MEDS: Bumetanide 1 MG TAB PO (09:49)
[2024-11-29] MEDS: Omeprazole 20 MG CAPCR PO (09:49)
[2024-11-29] MEDS: Azithromycin 250 MG TAB 500 MG PO (09:49)
[2024-11-29] MEDS: Normal Saline Flush 10 ML SYR IVP ×2 (09:49→19:49)
[2024-11-29] MEDS: Ferrous Sulfate 325 MG TAB PO (09:49)
[2024-11-29] MEDS: predniSONE 20 MG TAB 40 MG PO (09:49)
[2024-11-29] MEDS: Ascorbic Acid 500 MG TAB PO (09:49)
[2024-11-29] MEDS: Cholecalciferol (Vitamin D3) 1,000 UNIT TAB 1000 UNITS PO (09:49)
[2024-11-29] MEDS: Cyanocobalamin 500 MCG TAB PO (09:49)
--- NOTE | 2024-11-29 09:54 | W.PM.PROGNOT ---
Date of Service Date of service: 11/29/24 Time of Service: 09:54 Assessment and Plan Assessment and plan (1) COPD exacerbation: Status: Acute Assessment and plan: hest Ct on admit showed no acute findings upon presentation with increased shortness of breath with hypoxia and increased cough and sputum production Chest imaging :emphysematous changes which is correlating with her previous diagnostic of COPD Continue azithromycin 500 mg oral day 3 of 3 Continue oral prednisone will consider prolonged taper at discharge Sputum culture ordered- report of alaniz-colored sputum BNP < 500- will not increase diuretics - will continue home dose Pumonology referral at D/C- COPD progression evaluation versus need for chronic antibiotics Dr. Nguyen questioned mixed COPD-Asthma in note of 2023 but the patient is already on Breztri with component of inhaled corticosteroids (2) Hypoxic respiratory failure: Status: Acute Assessment and plan: Symptoms resolved but presented with shortness of breath and hypoxia on ambulation with intolerance to minimal exercise. Appears to be at baseline today?with as needed oxygen use with ambulation at home Observe overnight that most likely to discharge in the morning And as above (3) Hypothyroid: Status: Chronic Assessment and plan: Continue levothyroxine (4) Essential hypertension: Status: Acute Assessment and plan: continue home medicines (5) Anemia: Status: Chronic Assessment and plan: H&H 8.3 and 29.2 on presentation was previously 10 9 and 23.2 in 2023 most likely chronic which most likely is not the cause of hypoxia at this time with COPD exacerbation being more probable etiology vs mixed etiologies. Patient mentioned daily hematochezia with blood clot on 11/27/24 - stool guaiac sent and pending On home dose PPI H&H stable no acute bleeding, continue iron supplementation as per iron studies results Ongoing B12 supplementation: B12- 311 but as an acute phase reactant, it would be beneficial for the patient to continue supplementation CBC in a.m. Surgical consult for anemia placed (6) Gastroesophageal reflux disease without esophagitis: Status: Chronic Assessment and plan: On home dose PPI Consider Protonix IV twice daily if GI bleed confirmed. Reported hematochezia or melena since admission (7) Contraindication to deep vein thrombosis (DVT) prophylaxis: Status: Acute Assessment and plan: Continue TEDs or SCDs Discussed with Dr. Cadet Subjective Subjective Patient reports: no new complaints, feels better, tolerating liquids well, tolerating a regular diet, voiding w/o difficulty and bowel movement; denies diarrhea, blood in stool, nausea, vomiting, shortness of breath or fever Exam Narrative Exam Narrative: Constitutional Sitting in chair w/o acute distress Neuro:alert and oriented X4 , non focal Resp: clear to auscultation, unlabored Cardio: regular rhythm, S1, S2, no murmur, improved edema to LE's GI: Abdomen is not distended, soft and non tender, bowel sounds are present Integumentary: No skin lesions or rash, bilat mastectomy Extremities: strength 5/5 to bilateral lower and upper extremities Psych: RASS 0, congruent mood and normal affect. Objective Last Vital Signs Temp 36.6 C 11/29/24 07:58 Pulse 85 11/29/24 07:58 Resp 19 11/29/24 07:58 BP 128/68 11/29/24 07:58 Pulse Ox 96 11/29/24 07:58 Time Spent with Patient Time Spent with Patient: >50 minutes Time was spent: preparing to see the patient(eg.review tests), obtaining and/or reviewing separately otained hiistory, ordering medications,tests, procedures, referring, communicating with other health animal care attendant, indepentently interpreting results, counseling the patient and care coordination
[2024-11-29 10:18] LABS: Abs Immature Grans 0.23 10^3/uL (0.0-0.06); Absolute Lymphocyte Count 2.08 10^3/uL (1.2-3.4); Absolute Monocyte Count 0.97 10^3/uL (0.1-0.8); Basophils % 0.2 %; Eosinophils % 0.2 %; HCT 28.8 % (36.0-46.0); HGB 8.1 g/dL (11.2-15.7); Immature Grans % 1.8 %; MCH 22.9 pg (27.0-33.0); MCHC 28.1 % (32.0-36.0); MCV 82 fL (80-95); MPV 9.3 fL (8.0-11.0); Monocytes % 7.5 %; Neutrophils % 74.3 %; Nucleated RBC 0.6 % (0.0-0.3); Platelet Count 286 10^3/uL (130-400); RBC 3.53 10^6/uL (3.93-5.22); RDW 16.3 % (11.7-14.6); RDW-SD 48.1 fL; WBC 12.97 10^3/uL (4.4-10.8)
[2024-11-29 10:21] LABS: Absolute Basophil Count 0.03 10^3/uL (0.0-0.2); Absolute Eosinophil Count 0.03 10^3/uL (0.0-0.7); Absolute Neutrophil Count 9.64 10^3/uL (1.2-6.7)
[2024-11-29] MEDS: Polyethylene Glycol 3350 17 GM PACKET PO (11:38)
[2024-11-29] MEDS: Triamcinolone 0.1% CR 15 GM TUBE TP ×2 (13:17→19:49)
[2024-11-29] MEDS: Benzonatate 100 MG CAP PO ×2 (15:47→19:48)
[2024-11-29] MEDS: Acetaminophen 500 MG TAB 1000 MG PO ×2 (17:59→19:48)
[2024-11-29] MEDS: guaiFENesin 600 MG TABCR PO (19:48)
--- NOTE | 2024-11-29 22:30 | W.SURGCON ---
Date of service: 11/29/24 Time of Service: 22:30 Assessment and Plan Assessment and plan (1) Bright red rectal bleeding: Status: Acute Assessment and plan: 82-year-old woman with known internal hemorrhoids on colonoscopy 3 years ago has now a 5 to 6-year history of bright red bleeding with bowel movements, worsening in volume and frequency, who is now gone from hematocrit typically in the 40s down to less than 30. This anemia, combined with COPD and general deconditioning has led to a sharp decline in her performance status. The patient is high risk for colonoscopies due to the difficulty of the procedure but it is quite likely that the source of the bleeding is rectal and could be well-seen on a flexible proctoscopy. She thinks she will be unable to give herself enemas at home so we will plan for a full bowel prep, colonoscopy with a small diameter scope as far as is easy, using sedation, and get a good exam of the rectum and the hemorrhoidal area as well. We can plan that if hemorrhoids are seen, and are amenable to banding, that we would go ahead and perform a hemorrhoid banding at that time. The patient tells me she will be discharged home tomorrow so I will have the surgical office contact her at home to schedule the procedure. We discussed risks and benefits of hemorrhoidal banding. (2) Anemia: Status: Chronic History of Present Illness Narrative: SURGICAL CONSULT: Called for consult on this inpatient who has progressive anemia. Patient has comorbidity of COPD. She has history of colon cancer. Last colonoscopy with a minor polypectomy was December 2021. At that time her hematocrit was 43. She came in now with a hematocrit of 28. She feels much better after receiving iron infusion today. I just monopolar gyrus for the most understanding I thought they were still here because they just told me that he got upstairs so when he is a call in the RT's assuming that they were still here and you are sure we do place for them to recover because we ran like full on bed so that I needed to call the mL fluid anywhere I would not really like there is that he would even want to eat I mean I been I am I will stuff 9 the ORIF they are hungry to I could feel like the axillary I can go into the office. What would you eat a sandwich salad or something you just give some send me like from anesthesia she states that for the last 5 to 6 years she has had rectal bleeding. Initially it was just with moving her bowels but now it is anytime she sits on the toilet. She does not have to strain very often. She does take MiraLAX regularly. Over the last 3 months she has noticed progressive decline in her performance status. This includes weakness, legs feel like jelly, short of breath with any exertion. She has diagnosis of COPD at baseline. Her last colonoscopy was extremely difficult due to severe sigmoid diverticular disease. She does admit that her facilities maintenance assistant told her that she was getting to the point where the risks were outweighing the benefits. Grade 1 internal hemorrhoids were described at her last colonoscopy. Review of Systems Narrative: Patient states her breathing is better now, she denies chest pain, she denies abdominal pain. Her leg swelling has improved PFSH All Active Problems (Updated 11/29/24 @ 22:46 by Jinny Green MD) Bright red rectal bleeding (Acute) Contraindication to deep vein thrombosis (DVT) prophylaxis (Acute) Anemia (Chronic) COPD exacerbation (Acute) Trigger finger, left ring finger (Acute) Former smoker (Acute) Hypoxic respiratory failure (Acute) Renal insufficiency (Chronic) Trigger finger, left little finger (Acute) DOS: 06/21/23 Hypothyroid (Chronic) Chronic obstructive lung disease, type A (Chronic 03/26/13) Essential hypertension (Acute 10/05/13) Gastroesophageal reflux disease without esophagitis (Chronic) Obesity (Chronic) Ascending aorta dilatation (Acute) 3.7 cm on 11/2019 SOB (shortness of breath) (Acute) Screening for colon cancer (Acute) Hyperplastic colon polyp (Acute) Serrated adenoma of colon (Acute) Cough (Acute) Peripheral neuropathy (Acute) Ankle pain (Acute) Edema (Acute) Hypoxia (Acute) Medical History Contusion of arm, right Muscle strain of right upper arm Edema Ulnar neuropathy Carpal tunnel syndrome Smoker 1PPD/47 years--quit 10/24/2002 Asthma Cholecystitis 10/29/09 unspecified Impacted cerumen of right ear 01/15/15 Vitamin D deficiency disease (08/12/08) Tinnitus (01/15/15) Sensory hearing loss, bilateral (01/15/15) Osteoarthritis of right knee (10/29/15) 10/29/15; END STAGE RIGHT KNEE Metastatic colon cancer in female (01/23/17) 01/23/2017; 11/06 L.N. + ; S/P RIGHT HEMICOLECTOMY Malignant neoplasm of female breast (12/21/08) left mastectomy Hiatal hernia (09/02/08) Urinary, incontinence, stress female (05/04/11) Diverticulosis of colon without diverticulitis (11/19/08) As found during colonoscopy on 11/06/08 Disorder of vitamin B12 Anticoagulated on warfarin W/U neg. Breast cancer Colon polyp Renal insufficiency, mild Surgical History History of total bilateral knee replacement (TKR) Left carpal tunnel syndrome S/P ECTR: 02/02/2023 History of colonoscopy (~12/2021) Status post cholecystectomy Status post laparoscopic hysterectomy Status post left mastectomy (12/10/14) b/l S/P laparoscopic hysterectomy S/P total knee replacement left-2002; right-10/2005 Hysterectomy, Laproscopic (~1978) Hemicolectomy (01/23/17) RIGHT Colonoscopy - MAC (05/12/18) Colonoscopy - MAC (04/12/17) Cholecystectomy (~10/2009) Breast, Mastectomy Bilat Arthroplasty 10/29/15; RIGHT KNEE; DR. FORBES Family History Mother , 71 Heart disease Colon cancer Father , 75 Essential hypertension Heart disease Alcohol abuse Maternal Grandfather , 82 Essential hypertension Heart disease Stroke Paternal Grandfather , 62 Heart disease Maternal Grandmother , 88 Essential hypertension Breast cancer Paternal Grandmother , 98 Diabetes Essential hypertension Stroke Sister Asthma Sister No problems noted. Sister No problems noted. Son No problems noted. Son No problems noted. Son No problems noted. 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 Pets and animals: No Sexually active: No Do you think of yourself as: straight/heterosexual Current gender identity: female What is your relationship status?: How often do you talk on the phone with friends or family?: three or more times per week How often do you get together with friends or relatives?: three or more times per week How often do you attend restorationist or yazidi services?: decline to answer Do you belong to any clubs or organized social groups?: no Panel score (0-1 are the most socially isolated patients): 1 What type of physical activity do you participate in: other Details: Treadmill Duration: 15-30 minutes/day Frequency: daily Tabatha/Zoroastrian: Orthodox Special tabatha needs: No Seatbelt use: always Helmet use: No Drive intox or ride w/intox armored car guard and driver: No Do you feel safe at home: Yes Do you feel safe in your relationship?: Yes Additional Social history: lives alone Exam Narrative Exam Narrative: Obese woman who was sleeping in her recliner chair in her hospital room, awakens easily and is alert and oriented Const General: cooperative Resp Effort & Inspection: normal respiratory effort and able to speak in complete sentences Auscultation: diminished lung sounds, rhonchi and wheezes (Faint) Cardio Rate: regular rate Rhythm: regular rhythm Neuro General: no focal motor deficits Extrem Other: Tender lower extremities, left circumference greater than right, bilateral palpable pulses Results Last Vital Signs Temp 36.4 C L 11/29/24 19:22 Pulse 88 11/29/24 22:04 Resp 18 11/29/24 22:04 BP 121/77 11/29/24 19:22 Pulse Ox 93 11/29/24 22:04 Labs 11/29/24 10:10 11/28/24 06:35 Labs: Laboratory Results - last 24 hr 11/29/24 10:10 WBC 12.97 H RBC 3.53 L Hgb 8.1 L Hct 28.8 L MCV 82 MCH 22.9 L MCHC 28.1 L RDW 16.3 H Plt Count 286 MPV 9.3 Immature Gran % 1.8 Neutrophils % 74.3 Lymphocytes % 16.0 Monocytes % 7.5 Eosinophils % 0.2 Basophils % 0.2 Nucleated RBC % 0.6 H Absolute Neutrophils 9.64 H Absolute Lymphocytes 2.08 Absolute Monocytes 0.97 H Absolute Eosinophils 0.03 Absolute Basophils 0.03
[2024-11-30] VITALS (7 sets, daily range): BP systolic 124–142; BP diastolic 41–62; PULSE 74–88; RESP 2–20; TEMP 36–36.3; O2SAT 94–98
[2024-11-30] MEDS: Albuterol/Ipratropium 3 ML UPD VIAL IH ×2 (04:19→09:59)
[2024-11-30] MEDS: Levothyroxine 75 MCG TAB PO (05:41)
[2024-11-30] MEDS: Torsemide 20 MG TAB 40 MG PO (08:00)
[2024-11-30] MEDS: Azithromycin 250 MG TAB 500 MG PO (08:00)
[2024-11-30] MEDS: predniSONE 20 MG TAB 40 MG PO (08:01)
[2024-11-30] MEDS: Omeprazole 20 MG CAPCR PO (08:01)
[2024-11-30] MEDS: Benzonatate 100 MG CAP PO (08:01)
[2024-11-30] MEDS: Multivitamin TAB 1 TAB PO (08:01)
[2024-11-30] MEDS: Bumetanide 1 MG TAB PO (08:01)
[2024-11-30] MEDS: guaiFENesin 600 MG TABCR PO (08:01)
[2024-11-30] MEDS: Ascorbic Acid 500 MG TAB PO (08:01)
[2024-11-30] MEDS: Potassium Chloride 20 MEQ TABCR PO (08:01)
[2024-11-30] MEDS: Cholecalciferol (Vitamin D3) 1,000 UNIT TAB 1000 UNITS PO (08:01)
[2024-11-30] MEDS: Ferrous Sulfate 325 MG TAB PO (08:02)
[2024-11-30] MEDS: Cyanocobalamin 500 MCG TAB PO (08:02)
[2024-11-30] MEDS: Aspirin 81 MG CHEW PO (08:02)
--- NOTE | 2024-11-30 08:40 | IN_ITS ---
PT Notes Visit Reasons: COPD Exacerbation Physical Therapy Inpatient Initial Evaluation Date: 11/30/2024 Referring Doctor: Vidhi Vásquez NP PT Orders: PT CONSULT: Safety consult for D/C Precautions: Fall. Standard. Activity as tolerated. Patient Profile/Admitting Diagnosis: Ashley is an 84-year-old female admitted for management of rectal bleeding r/t hemorrhoids, anemia, COPD exacerbation, hypoxic respiratory failure, hypothyroidism, GERD. PMHX: All Active Problems (Updated 11/27/24 @ 16:26 by Vidhi Vásquez APRN) Contraindication to deep vein thrombosis (DVT) prophylaxis (Acute) Anemia (Chronic) COPD exacerbation (Acute) Trigger finger, left ring finger (Acute) Former smoker (Acute) Hypoxic respiratory failure (Acute) Renal insufficiency (Chronic) Trigger finger, left little finger (Acute) DOS: 06/21/23Hypothyroid (Chronic) Chronic obstructive lung disease, type A (Chronic 03/26/13) Essential hypertension (Acute 10/05/13) Gastroesophageal reflux disease without esophagitis (Chronic) Obesity (Chronic) Ascending aorta dilatation (Acute) 3.7 cm on 11/2019SOB (shortness of breath) (Acute) Screening for colon cancer (Acute) Hyperplastic colon polyp (Acute) Serrated adenoma of colon (Acute) Cough (Acute) Peripheral neuropathy (Acute) Ankle pain (Acute) Edema (Acute) Hypoxia (Acute) Medical History Contusion of arm, right Muscle strain of right upper arm Edema Ulnar neuropathy Carpal tunnel syndrome Smoker 1PPD/47 years--quit 10/24/2002Asthma Cholecystitis 10/29/09 unspecified Impacted cerumen of right ear 01/15/15 Vitamin D deficiency disease (08/12/08) Tinnitus (01/15/15) Sensory hearing loss, bilateral (01/15/15) Osteoarthritis of right knee (10/29/15) 10/29/15; END STAGE RIGHT KNEE Metastatic colon cancer in female (01/23/17) 01/23/2017; 11/06 L.N. + ; S/P RIGHT HEMICOLECTOMY Malignant neoplasm of female breast (12/21/08) left mastectomy Hiatal hernia (09/02/08) Urinary, incontinence, stress female (05/04/11) Diverticulosis of colon without diverticulitis (11/19/08) As found during colonoscopy on 11/06/08 Disorder of vitamin B12 Anticoagulated on warfarin W/U neg. Breast cancer Colon polyp Renal insufficiency, mild Surgical History History of total bilateral knee replacement (TKR) Left carpal tunnel syndrome S/P ECTR: 02/02/2023 History of colonoscopy (~12/2021) Status post cholecystectomy Status post laparoscopic hysterectomy Status post left mastectomy (12/10/14) b/l S/P laparoscopic hysterectomy S/P total knee replacement left-2002; right-10/2005 Hysterectomy, Laproscopic (~1978) Hemicolectomy (01/23/17) RIGHT Colonoscopy - MAC (05/12/18) Colonoscopy - MAC (04/12/17) Cholecystectomy (~10/2009) Breast, Mastectomy Bilat Arthroplasty 10/29/15; RIGHT KNEE; DR. 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 Indepednent with all mobility ADLs without device. Lives alone in the basement of a private residence with 25 steps to go down to. Has the support of family members. Still drives. Equipment Owned/DME: [facility] Subjective: [place] stronger and able to tolerate movement. Said that she overdid herself since the past holidays after having had a lung infection back in . She became weaker and weaker since the beginning of this year and last Tuesday w as seen by his grandson and brought to the AD because of how weak she looked. She now feels almost at baseline and is excited that she is able to still talk even after walking about 150 feet with PT. Hopeful to go home today. Agreeable with HH PT. Objective: General Observation: retin on bedside recliner Mental Status: Alert and oriented as to person, place, time, and purpose. Able to pay attention, focus, and respond appropriately. Pain: None reported Vital Signs: See below during mobility performance ROM: Right Upper Extremity: Shoulder Flexion WFL. Shoulder abduction WFL. Elbow flexion WFL. Wrist flexion WFL. Functional opening and closing of hand WFL. Left Upper Extremity: Shoulder Flexion WFL. Shoulder abduction WFL. Elbow flexion WFL. Wrist flexion WFL. Functional opening and closing of hand WFL. Right Lower Extremity: Hip flexion WFL. Hip abduction WFL. Knee flexion WFL. Ankle dorsiflexion WFL. Ankle plantarflexion WFL. Left Lower Extremity: Hip flexion WFL. Hip abduction WFL. Knee flexion WFL. Ankle dorsiflexion WFL. Ankle plantarflexion WFL. Strength: Right Upper Extremity: Shoulder flexors 4-/5. Shoulder abductors 4-/5. Elbow flexors 4-/5. Elbow extensors 4-/5. Weight And Balance Control Agent strong. Left Upper Extremity: Shoulder flexors 4-/5. Shoulder abductors 4-/5. Elbow flexors 4-/5. Elbow extensors 4-/5. Weight And Balance Control Agent strong. Right Lower Extremity: Hip flexors 3+/5. Hip abductors 3+/5. Knee flexors 4/5. Knee extensors 4-/5. Ankle dorsiflexors 4-/5. Ankle plantarflexors 4-/5. Left Lower Extremity: Hip flexors 3+/5. Hip abductors 3+/5. Knee flexors 4/5. Knee extensors 4-/5. Ankle dorsiflexors 4-/5. Ankle plantarflexors 4-/5. Bed Mobility/Transfers: Minimal cueing provided for use of B hands as needed for support, movement sequence, AD management, and posture to reduce fall risk and minimize pain report Sit to stand with stand by assist with FWW Stand to sit with stand by assist with FWW Gait: 150 feet + 150 feet using FWW with stand by assist only and minimal verbal cue ing for AD management, pacing and breathing techniques, and posture. Moderate breathlessness subsided with rest. BP went down to 158/66 mmHg from 187/51 mmHg after each walk. HR stayed at 84 bpm after each walk. Oxygen saturation stayed above 90% on RA. Stairs: Guided patient with negotiation of 6 x 4-inch steps and 4 x 6-inch steps while holding onto B rails for support with moderate shortness of breath after activity but with SaO2 above 90%. GEORGE EX: Worked on reviewing pursed lip breathing and rationale of doing it in relation to her COPD. Guided patietn with performance of deep breathing exercises done alongside chest expansion technique to m optimize ventilatory function and minimize onset of fatigue during mobility/ADL performance. Balance: Static Sitting: Normal Dynamic Sitting: Normal Static Standing: Fair Dynamic Standing: Fair Special Tests: Mobility Limitations Standardized Measure [facility] AM-PAC 6 clicks Basic Mobility Inpatient Short Form: Raw Score: 23 CMS Score: 11% deficit 4-Stage Balance Test: Feet together 10 seconds semi-tandem 10 seconds Full tandem <10 seconds One-legged stance deferred Informed Consent/Education: Patient was instructed in purpose of PT consult and plan of care. Agreeable to proceed with established PT POC to achieve personal goals. Assessment: Short of breath but was saturating above 90% on RA throughout. HR 84 bpm after the walk and stair negotiation. BP went up intially to 187/51 after walking from room to therapy room but stabilized down to 158/66 mmHg after resting for 2-3 minutes of doing stairs. Will need a front-wheeled walker for increased stability and energy conservation during mobility performance. Patient presents with clinical signs and symptoms consistent with current/admitting diagnoses that have resulted to mobility limitations, gait instability, generalized weakness, and overall ADL decline as demonstrated by the following impairment level findings: 1. Decreased strength to B LE major muscle groups 2. Impaired standing balance 3. Impaired activity tolerance 5. Shortness of breath 6. Lightheadedness 7. B leg edema Impairments are contributing to the following functional limitations: 1. Difficulty with ambulation without assistive device 2. Increased completion time for mobility ADL performance 3. Increased risk for falls 4. Difficulty with managing steps alone safely Patient is assessed as a 88630 moderate complexity based on the following: History: 84-year-old female with past medical history as indicated above Examination: Demonstrable impairment in strength, balance, and mobility level with underlying impairments and functional limitations as exhibited above as well as deficit score of 11% utilizing the [facility] Mobility Inpatient Short Form Presentation: Evolving Decision Makin moderate complexity Goals: Goals X1 week 1. Supine-Sit independent 2. Sit-Supine independent 3. Sit-Stand independent 4. Stand-Sit independent with FWW 5. Bed-Chair independent with FWW 6. Chair-Bed independent with FWW 7. Independent gait on level surface with use of FWW for at least 300 feet without report of pain nor dyspnea 8. Independent stair negotiation while holding onto B rails for at least 25 steps without report of pain nor dyspnea 9. Independent with home exercise program 10. Good static and dynamic standing balance/tolerance Plan of Care/Treatment Plan: 1-2x/day, 7 days/week x 1 week. Plan of care has been reviewed with the [facility] providing the service under Physical Therapy direction. Initiate Physical Therapy intervention for pain management as needed, strengthening, bed mobility, transfers, gait, stairs, balance training, and use of assistive device. DISCHARGE RECOMMENDATIONS: [] Home with no services [] [X] Home with services. Patient will benefit from home health PT services in order to progress mobility level using least restrictive assistive ambulatory d evice, assess home safety, identify additional equipment needs, and establish a functional maintenance program that will increase ability of patient to remain at home. [] Home with outpatient PT [] [] SNF for continued rehabilitation [] [] [facility] [] [] SNF versus LTC based on ability to participate and progress [] TREATMENT CODE/TIME: 63145 x 20 minutes for 1 unit, 57970 x 20 minutes for 1 unit (8:40-9:20). Thank you for the opportunity to participate in the care of this patient. Galina Zarate PT, DPT, CLT [facility] [place], [place]
--- NOTE | 2024-11-30 08:48 | PDOC.CMPRO ---
Date of service: 11/30/24 Time of Service: 08:48 Care Management Progress Note Discharge Potential Discharge Needs: PCP F/U Appt Anticipated Barriers to Discharge: None Identified Patient/Family Education Needs: Review discharge instructions, discuss Ask Me Three Transportation: Private vehicle Plan: Anticipate Kelly will be discharged home, possibly with new home health services for PT and [facility], when medically stable. She will follow up with her community providers and plan of care and transport with one of her grandchildren. CM will follow and continue to assess for discharge needs. Social Determinants of Health Screening Social Determinants of Health last assessed: 11/30/24 Will the Patient Participate in the Screening?: Yes Do you worry about having a steady place to live?: no Problems where you live: no known problems In the past 12 months, have you had to go without electric, gas, oil or water in your home?: no Have you or anyone in your house had to go without enough food to eat?: no Has lack of transportation kept you from medical appointments or from doing things needed for daily living?: no Has anyone in your life made you feel unsafe or unsupported?: no How hard is it for you to pay for the very basics like food, housing, medical care, and heating? Would you say it is:: Not hard at all Do you want help finding or keeping work or a job?: I do not need or want help If for any reason you need help with day-to-day activities such as bathing, preparing meals, shopping, managing finances, etc., do you get the help you need?: I get all the help I need How often do you feel lonely or isolated from those around you?: Never Do you speak a language other than Argentine at home?: No Does the patient want assistance with any of the above?: No Health Related Social Needs Health related social needs: housing instability, housed, with risk of homelessness (Z59.811)
[2024-11-30] MEDS: Normal Saline Flush 10 ML SYR IVP (10:16)
[2024-11-30] MEDS: Triamcinolone 0.1% CR 15 GM TUBE TP (10:16)
--- NOTE | 2024-11-30 10:52 | DSE_ITS ---
Date of service: 11/30/24 Time of Service: 10:53 DS: Diagnosis Discharge Diagnosis (1) Bright red rectal bleeding: Status: Resolved (2) Anemia: Status: Chronic Discharge Plan Disposition Patient Disposition: Home Condition: Improving Discharge Details Reason For Visit: COPD Exacerbation Admit Date/Time: 11/27/24 15:56 Admit Provider: Robert Cadet Attending Provider: Robert Cadet Primary Care Provider: Poly Copeland Hospital Course Hospital Course: Discharge Diagnosis: * COPD exacerbation with hypoxic respiratory failure * Anemia * Hypothyroidism * History of colon cancer and breast cancer Hospital Course: The patient, an 85-year-old female with a past medical history significant for oxygen-dependent COPD, hypothyroidism, HFpEF, GERD, anemia, and a history of colon (last colonoscopy with a minor polypectomy was December 2021.) and breast cancer (bilateral mastectomy), presented to the ED on 11/27/2024 with increased shortness of breath, productive cough, and inability to ambulate. Her condition was consistent with a COPD exacerbation. Initial workup in the ED revealed a hemoglobin of 8.3 (down from 10.9 in August 2024), but no leukocytosis or other acute abnormalities were found on her chest CT. The patient was admitted to the medical-surgical floor for management of hypoxic respiratory failure in the context of a COPD exacerbation and anemia. She was treated with scheduled and as-needed nebulizer treatments, prednisone and was started on azithromycin ( 500 mg 3 day course - Creatinine 1.0). Sputum cultures grew rare gram-positive cocci and gram-negative rods, and the patient showed clinical improvement. Patient is not oxygen dependent but does have oxygen at home as needed. Iron supplementation was provided due to the patient?s anemia, and her hemoglobin and hematocrit remained stable during her hospitalization. Surgical consultation was requested for anemia workup. Occult blood stool testing was negative. The patient was seen by physical therapy to ensure safe discharge, and recommendations for outpatient physical therapy were given. Surgical Consult: (per Dr. Green) The patient is an 82-year-old woman with a known history of internal hemorrhoids, diagnosed on colonoscopy 3 years ago. She now presents with a 5 to 6-year history of bright red rectal bleeding with bowel movements, which has worsened in both volume and frequency. The bleeding has contributed to a significant decline in her hematocrit, which has dropped from the 40s to less than 30. This anemia, in combination with her COPD and general deconditioning, has led to a sharp decline in her performance status. The patient's current anemia, secondary to chronic rectal bleeding, is likely related to her internal hemorrhoids. The source of the bleeding appears to be rectal, and while the patient is at high risk for a full colonoscopy due to procedural difficulties, it is likely that the bleeding can be identified and managed with a flexible proctoscopy. (Occult blood stool testing was negative). Given the patient's concerns about being unable to perform enemas at home for bowel preparation, we will plan for a full bowel prep to be conducted prior to the procedure. The procedure will involve a colonoscopy using a small diameter scope, performed with sedation. The goal will be to obtain a clear examination of the rectum and hemorrhoidal area, focusing on identifying any hemorrhoidal pathology. If hemorrhoids are visualized and are amenable to banding, we will proceed with hemorrhoidal banding during the same session. The patient was informed of the risks and benefits of hemorrhoidal banding, and we discussed these thoroughly. The surgical office will contact the patient at home to schedule the procedure. Condition at Discharge: The patient was stable and reported feeling back to baseline with significant improvement in her respiratory status. She will be discharged home with out patient physical therapy referral. Discharge Medications: * Azithromycin ? 3-day course completed * Oral prednisone ? 40 mg for four days; 20 mg for 3 days * Iron supplementation ? As per recommendation * Home oxygen ? As needed for shortness of breath Follow-up Appointments: * Primary care provider: Follow up within 7 days of discharge with Dr Copeland * [place] [facility] [place] for evaluation of disease progression and possible need for chronic antibiotics by PCP 11/17/2024 Discharge Instructions: * Home Oxygen: Continue to use as needed for shortness of breath * Diet: No specific restrictions unless otherwise instructed by primary care * Physical Activity: Follow-up with physical therapy and gradual increase in activity as tolerated * Signs of Infection: Contact [facility] if any new symptoms of fever, chills, or increased shortness of breath develop or return to the emergency department. * Anemia: Continue prescribed iron supplementation, and follow up for anemia workup as recommended. Out patient CBC next week. Disposition: Discharged home with referral to outpatient physical therapy for strengthening. DNR/DNI Status: Confirmed as per COLST form dated 04/07/2021. Home Meds and New Rx's Prescriptions: New prednisone 20 mg Tablet 40 mg PO DAILY Qty: 11 0RF Rx Instructions: take 40 mg ( 2 pills for) 4 days then 20 mg ( 1 pill for 3 days) cyanocobalamin (vitamin B-12) [Vitamin B-12] 500 mcg Tablet 500 mcg PO DAILY Qty: 30 0RF docusate sodium [Colace] 100 mg Capsule 100 mg PO BID PRNQty: 30 0RF ferrous sulfate 325 mg (65 mg iron) Tablet 325 mg PO DAILY Qty: 30 0RF guaifenesin [Mucus Relief ER] 600 mg Tablet Extended Release 12hr 600 mg PO BID Qty: 14 0RF benzonatate 100 mg Capsule 100 mg PO TID Qty: 90 0RF azithromycin 500 mg tablet 500 mg PO DAILY 2 Days Qty: 2 0RF Rx Instructions: start on day 2 of therapy Continued [id number] 600 mg calcium- 800 unit-50 mg tablet 1 tab PO DAILY cholecalciferol (vitamin D3) 1,000 unit capsule 1,000 unit PO DAILY ascorbic acid (vitamin C) 500 mg tablet 500 mg PO DAILY triamcinolone acetonide 0.1 % cream 1 applic TP BID Qty: 80 2RF Rx Instructions: apply to back and chin ipratropium-albuterol 0.5 mg-3 mg(2.5 mg base)/3 mL solution for nebulization 3 ml inhalation Q6H PRN (Reason: wheezing) Qty: 540 7RF solifenacin [Vesicare] 10 mg tablet 10 mg PO DAILY Qty: 90 12RF bumetanide 1 mg tablet 1 mg PO DAILY Qty: 2 0RF aspirin [Aspirin Low-Strength] 81 MG tablet,chewable 81 mg PO DAILY fesoterodine [Toviaz] 8 mg tablet extended release 24 hr 8 mg PO DAILY Qty: 90 5RF albuterol sulfate 90 mcg/actuation HFA aerosol inhaler 2 puff INHALATION QID PRN (Reason: shortness of breath or wheezing) Qty: 3 3RF levothyroxine 75 mcg tablet 75 mcg PO DAILY Qty: 90 6RF potassium chloride 20 mEq tablet,ER particles/crystals 20 meq PO BID Qty: 180 4RF Breztri Aerosphere 160-9-4.8 mcg/actuation HFA aerosol inhaler 2 inh inhalation BID Qty: 10.7 8RF promethazine 6.25 mg/5 mL syrup 12.5 mg PO Q6H PRN (Reason: cough) Qty: 120 0RF torsemide 20 mg tablet See Rx Instructions PO QAM Qty: 270 7RF Rx Instructions: orally every morning; 2 tabs am omeprazole 20 mg capsule,delayed release(DR/EC) 20 mg PO DAILY Qty: 90 3RF acetaminophen 500 mg tablet 1,000 mg PO TID Qty: 90 0RF multivitamin [Daily Multiple] 1 EACH tablet 1 ea PO DAILY Discharge Instructions Instructions: Azithromycin (Systemic), Chronic Obstructive Pulmonary Disease (COPD) (DC), Prednisone, Anemia caused by low iron in adults - Discharge instructions Additional Instructions: Discharge Medications: * Azithromycin ? 3-day course completed * Oral prednisone ? 40 mg for four days; 20 mg for 3 days * Iron supplementation ? As per recommendation * Home oxygen ? As needed for shortness of breath Follow-up Appointments: * Primary care provider: Follow up within 7 days of discharge with Dr Copeland * [place] [facility] [place] placed for evaluation of disease progression and possible need for chronic antibiotics by PCP 11/17/2024 Discharge Instructions: * Home Oxygen: Continue to use as needed for shortness of breath * Diet: No specific restrictions unless otherwise instructed by primary care * Physical Activity: Follow-up with physical therapy and gradual increase in activity as tolerated * Signs of Infection: Contact [facility] if any new symptoms of fever, chills, or increased shortness of breath develop or return to the emergency department. * Anemia: Continue prescribed iron supplementation, and follow up for anemia workup as recommended. Out patient Hemoglobin and hematocrit next week. Disposition: Discharged home with referral to outpatient physical therapy for strengthening. Referrals: Poly Copeland MD, [place] [Primary Care Provider] - (Follow-up within 7 days of discharge, please.) Zuleyma Bernardo PA [PH[employer]ICI[employer]ENER] - (Frequent readmission for COPD exacerbation- ? chronic antibiotic needs, last pulmonology note mentioned a question of mixed Asthma COPD- ? need for ICS maintenance? Need of new PFT testing- could not walk 100 feet.) Activity:: Activity as Tolerated Equipment/Supplies:: No Equipment Needed Diet:: health healthy Discharge Orders Discharge Orders: Discharge Order (Routine); Ordered 11/30/24 Ordered By: Priscilla Hand Other Ambulatory Orders: Complete Blood Count w/Diff (Routine) Timeframe: 20241203 Facility: [facility] - Location: Laboratory Outpatient - [facility] Ordered By: Priscilla Hand DS: Summary Time Spent with Patient providing and/or coordinating discharge services: Greater than 30 minutes Status at Discharge Functional status at discharge: uses cane/walker Overall status at discharge: patient is back to baseline Mental Status: mental status grossly normal Speech and Movement: speech and movement normal Mood: congruent mood Affect: normal affect Quality:SDOH Health Related Social Needs: Health related social needs housing instability, house d, with risk of homelessness (Z59.811) Exam Const General: cooperative HENMT Mouth: moist mucous membranes Eyes Conjunctivae: normal conjunctivae Sclera: normal sclerae Neck Neck: trachea midline Resp Effort & Inspection: able to speak in complete sentences and not labored Auscultation: diminished lung sounds bilaterally in the lower lung santos, no rales and no rhonchi Cardio Rate: regular rate and not tachycardic Rhythm: regular rhythm GI Palpation: soft, not firm, no guarding, no masses, not rigid and nontender Skin General skin exam: no rashes or lesions noted Neuro General: patient alert, patient awake, patient oriented x3 and tone normal Extrem General: no calf tenderness and no edema Psych Appearance: grossly normal Mental Status: mental status grossly normal Speech and Movement: speech and movement normal Mood: congruent mood Affect: normal affect DS: Data Vitals/I&O Vitals and I&O: Vital Signs Temperature 36.0 C L 11/30/24 07:40 Temperature Source Tympanic 11/30/24 07:40 Pulse 88 11/30/24 09:59 Pulse Rhythm Regular 11/27/24 18:06 Pulse 85 11/27/24 17:40 Respiratory Rate 16 11/30/24 07:40 Respiratory Effort Short of Breath, Accessory Muscle Use, Pursed Lip, Incrsd Work of Breathing 11/27/24 18:06 Respiratory Depth Shallow 11/27/24 18:06 Respiratory Pattern Tachypnea 11/27/24 18:06 Blood Pressure 142/62 H 11/30/24 07:40 Blood Pressure Mean 88 11/27/24 17:28 Blood Pressure Position Sitting 11/27/24 12:30 Pulse Oximetry 98 11/30/24 09:59 Oxygen Delivery Method Room Air 11/30/24 09:59 Oxygen Flow Rate 0 11/30/24 09:59 Pain Level 0 11/30/24 08:50 Comment nurse notified 11/28/24 22:39 Intake & Output 11/29/24 11/29/24 11/30/24 11:59 23:59 11:59 Intake Total 1400 / 1400 Balance 1400 / 1400 Intake: IV Oral 1390 / 1390 Other: Urine Color Yellow Yellow Urine Appearance Clear Clear Urine Odor None Stool Size Moderate Stool Characteristics Soft Formed Brown Data Completed and Pending Labs on day of discharge: Preliminary micro results at discharge 11/29/24 10:00 Sputum Culture - Preliminary Sputum - Expectorated Normal Radha PFSH All Active Problems (Updated 11/30/24 @ 10:53 by Priscilla Hand NP) Contraindication to deep vein thrombosis (DVT) prophylaxis (Acute) Anemia (Chronic) COPD exacerbation (Acute) Trigger finger, left ring finger (Acute) Former smoker (Acute) Hypoxic respiratory failure (Acute) Renal insufficiency (Chronic) Trigger finger, left little finger (Acute) DOS: 06/21/23 Hypothyroid (Chronic) Chronic obstructive lung disease, type A (Chronic 03/26/13) Essential hypertension (Acute 10/05/13) Gastroesophageal reflux disease without esophagitis (Chronic) Obesity (Chronic) Ascending aorta dilatation (Acute) 3.7 cm on 11/2019 SOB (shortness of breath) (Acute) Screening for colon cancer (Acute) Hyperplastic colon polyp (Acute) Serrated adenoma of colon (Acute) Cough (Acute) Peripheral neuropathy (Acute) Ankle pain (Acute) Edema (Acute) Hypoxia (Acute) Medical History Contusion of arm, right Muscle strain of right upper arm Edema Ulnar neuropathy Carpal tunnel syndrome Smoker 1PPD/47 years--quit 10/24/2002 Asthma Cholecystitis 10/29/09 unspecified Impacted cerumen of right ear 01/15/15 Vitamin D deficiency disease (08/12/08) Tinnitus (01/15/15) Sensory hearing loss, bilateral (01/15/15) Osteoarthritis of right knee (10/29/15) 10/29/15; END STAGE RIGHT KNEE Metastatic colon cancer in female (01/23/17) 01/23/2017; 11/06 L.N. + ; S/P RIGHT HEMICOLECTOMY Malignant neoplasm of female breast (12/21/08) left mastectomy Hiatal hernia (09/02/08) Urinary, incontinence, stress female (05/04/11) Diverticulosis of colon without diverticulitis (11/19/08) As found during colonoscopy on 11/06/08 Disorder of vitamin B12 Anticoagulated on warfarin W/U neg. Breast cancer Colon polyp Renal insufficiency, mild Surgical History History of total bilateral knee replacement (TKR) Left carpal tunnel syndrome S/P ECTR: 02/02/2023 History of colonoscopy (~12/2021) Status post cholecystectomy Status post laparoscopic hysterectomy Status post left mastectomy (12/10/14) b/l S/P laparoscopic hysterectomy S/P total knee replacement left-2002; right-10/2005 Hysterectomy, Laproscopic (~1978) Hemicolectomy (01/23/17) RIGHT Colonoscopy - MAC (05/12/18) Colonoscopy - MAC (04/12/17) Cholecystectomy (~10/2009) Breast, Mastectomy Bilat Arthroplasty 10/29/15; RIGHT KNEE; DR. FORBES Family History Mother , 71 Heart disease Colon cancer Father , 75 Essential hypertension Heart disease Alcohol abuse Maternal Grandfather , 82 Essential hypertension Heart disease Stroke Paternal Grandfather , 62 Heart disease Maternal Grandmother , 88 Essential hypertension Breast cancer Paternal Grandmother , 98 Diabetes Essential hypertension Stroke Sister Asthma Sister No problems noted. Sister No problems noted. Son No problems noted. Son No problems noted. Son No problems noted. 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 Pets and animals: No Sexually active: No Do you think of yourself as: straight/heterosexual Current gender identity: female What is your relationship status?: How often do you talk on the phone with friends or family?: three or more times per week How often do you get together with friends or relatives?: three or more times per week How often do you attend jewish or moravian services?: decline to answer Do you belong to any clubs or organized social groups?: no Panel score (0-1 are the most socially isolated patients): 1 What type of physical activity do you participate in: other Details: Treadmill Duration: 15-30 minutes/day Frequency: daily Tabatha/Holiness: Uatsdin Special tabatha needs: No Seatbelt use: always Helmet use: No Drive intox or ride w/intox haul driver: No Do you feel safe at home: Yes Do you feel safe in your relationship?: Yes Additional Social history: lives alone Time Spent with Patient Time Spent with Patient: 45-69 minutes Time was spent: preparing to see the patient(eg.review tests), ordering medications,tests, procedures, referring, communicating with other health small animal caretaker, indepentently interpreting results, counseling the patient and care coordination
--- NOTE | 2024-11-30 12:03 | CMDISCH_ITS ---
Date of service: 11/30/24 Time of Service: 12:05 LACE Index Scoring Tool Questions: Length of Stay (in days): 3 Was the patient admitted via the E.D.?: Yes Comorbidities: Chronic Pulmonary Disease, Any Tumor and Liver or Renal Disease E.D. Visits: 2 Answers: Total Score: 13 Risk of Readmission: High Risk Care Management Discharge Plan Reason for Hospitalization: COPD Discharge Plan: Kelly will be discharged home with no new services. She will attend outpatient PT and follow up with her community providers. Kelly's family will transport her home via private vehicle. Patient/Family Education Needs: Review of discharge instructions, limitations, follow up plan and discuss Ask Me Three Services Needed at Discharge: Physical Therapy SDOH Health Related Social Needs: Health related social needs housing instability, house d, with risk of homelessness (Z59.811)
[2024-11-30] MEDS: IRON SUCROSE COMPLEX 300 MG in Normal Saline 250 ML 167 MG IVPB (13:01)
--- NOTE | 2024-11-30 14:32 | PT.INNT ---
PT Notes Visit Reasons: COPD Exacerbation pt just set up on IV iron infusion. Reports she is not able to go for a walk. I'm going home as soon as this IV is done.
== END 2024-11-30 16:02 | disposition home or self-care (01) ==
LOC: ER 12:30 → MS 17:40
PROVIDERS: Nurse Practitioner Acute Care; Admitting Provider Family Medicine; Emergency Provider Physician Assistant; PCP Family Medicine; Visit Provider Family Medicine
DX: J44.1 Chronic obstructive pulmonary disease with (acute) exacerbation (principal); K62.5 Hemorrhage of anus and rectum; J96.01 Acute respiratory failure with hypoxia; E03.9 Hypothyroidism, unspecified; D50.0 Iron deficiency anemia secondary to blood loss (chronic); K21.9 Gastro-esophageal reflux disease without esophagitis; Z85.038 Personal history of other malignant neoplasm of large intestine; K57.30 Diverticulosis of large intestine without perforation or abscess without bleeding; Z87.891 Personal history of nicotine dependence; G62.9 Polyneuropathy, unspecified; E66.9 Obesity, unspecified; E55.9 Vitamin D deficiency, unspecified; Z85.3 Personal history of malignant neoplasm of breast; I50.30 Unspecified diastolic (congestive) heart failure; I11.0 Hypertensive heart disease with heart failure; K64.8 Other hemorrhoids; Z66 Do not resuscitate
CPT/HCPCS: 00123; 36415; 71250; 80048; 80053; 87637; 94640; 96365; 96366; 96375; 97162; 97530; 99221; 99285; 82270; 82607; 82746; 83540; 83550; 83735; 83880; 84443; 84484; 85025; 87070; 87205; 94664; 94667; 94760; 99223; 99233; 99239; G0378; J1756; J2919; J7512; J7613; J7620

== ENCOUNTER 2024-12-04 13:51 | Outpatient (REF) | payer MEDICARE, SELFPAY ==
[2024-12-04 21:04] LABS: HCT 37.8 % (36.0-46.0); HGB 10.6 g/dL (11.2-15.7); MCH 23.8 pg (27.0-33.0); MCV 85 fL (80-95); MPV 9.8 fL (8.0-11.0); Platelet Count 367 10^3/uL (130-400); RBC 4.46 10^6/uL (3.93-5.22); RDW-SD 48.7 fL; WBC 16.46 10^3/uL (4.4-10.8)
[2024-12-04 21:12] LABS: Iron 43 ug/dL (50-170)
[2024-12-04 21:30] LABS: RDW 20.5 % (11.7-14.6)
[2024-12-04 21:51] LABS: ALT 29 U/L (14-59); AST 19 U/L (15-37); Albumin 3.6 g/dL (3.4-5.0); Alkaline Phosphatase 117 U/L (46-116); Anion Gap 8.1 mmol/L (3-11); BUN 24 mg/dL (7-18); CO2 30.9 mmol/L (21.0-32.0); CREATININE 1.3 mg/dL (0.55-1.02); Calcium 8.5 mg/dL (8.5-10.1); Chloride 106 mmol/L (98-107); Estimated GFR 41.06 (mL/min/1.73m2); Ferritin 323 ng/mL (8-252); Glucose 108 mg/dL (74-106); Potassium 4.1 mmol/L (3.5-5.1); Sodium 145 mmol/L (136-145); TSH (W/Ref FT4) 0.26 uIU/mL (0.36-3.74); Total Protein 7.4 g/dL (6.4-8.2)
[2024-12-04 22:19] LABS: FREE T4 1.22 ng/dL (0.76-1.46); NT-proBNP 178 pg/mL (<300)
== END 2024-12-04 13:52 | disposition home or self-care (01) ==
LOC: LBN 13:51
PROVIDERS: PCP Family Medicine; Visit Provider Family Medicine
DX: D50.0 Iron deficiency anemia secondary to blood loss (chronic) (principal); I50.9 Heart failure, unspecified; I10 Essential (primary) hypertension
CPT/HCPCS: 80053; 85027; 82728; 83540; 83880; 84439; 84443

== ENCOUNTER 2025-01-02 03:38 | Outpatient (CLI) | payer MEDICARE, SELFPAY ==
--- NOTE | 2025-01-02 06:45 | DI.RAD_ITS ---
Exam(s) XR CHEST 2V PA LATERAL EXAM: XR CHEST 2V PA LATERAL CLINICAL HISTORY: cough, increased congestion,sob,r06.02,j43.9 TECHNIQUE: 2D digital imaging was performed of the chest. Two images were obtained. PA and lateral views were obtained. COMPARISON: CR XR CHEST 2V PA LATERAL from 09/14/2024 FINDINGS: MEDIASTINUM: Normal. HEART: Normal. PULMONARY VASCULATURE: Normal. LUNGS: Stable chronic interstitial fibrosis is present. No focal consolidating infiltrates are seen. There is hyperexpansion of the lungs with flattening of the diaphragms suggesting underlying COPD. PLEURAL SPACE: No pleural effusion or pneumothorax. BONE:Within normal limits for the patient's age. There is a mild right thoracic scoliosis. OTHER FINDINGS:Normal. IMPRESSION: No acute pulmonary findings. DATA REPOSITORY: RADIATION DOSE DELIVERED:
== END 2025-01-02 03:58 ==
PROVIDERS: PCP Family Medicine; Visit Provider Family Medicine
DX: R06.02 Shortness of breath (principal); J43.9 Emphysema, unspecified
CPT/HCPCS: 71046

== ENCOUNTER 2025-01-02 04:34 | Outpatient (CLI) | payer MEDICARE, SELFPAY ==
[2025-01-02 11:09] LABS: HCT 41.4 % (36.0-46.0); HGB 11.7 g/dL (11.2-15.7); MCH 24.6 pg (27.0-33.0); MCHC 28.3 % (32.0-36.0); MCV 87 fL (80-95); Platelet Count 287 10^3/uL (130-400); RBC 4.76 10^6/uL (3.93-5.22); RDW 22.1 % (11.7-14.6); RDW-SD 69.1 fL; WBC 8.36 10^3/uL (4.4-10.8)
[2025-01-02 11:44] LABS: BUN 24 mg/dL (7-18); CREATININE 1.3 mg/dL (0.55-1.02); Calcium 9.4 mg/dL (8.5-10.1); Chloride 103 mmol/L (98-107); Estimated GFR 41.06 (mL/min/1.73m2); Glucose 111 mg/dL (74-106); NT-proBNP 147 pg/mL (<300); Potassium 3.3 mmol/L (3.5-5.1); Sodium 142 mmol/L (136-145)
== END 2025-01-02 04:35 | disposition home or self-care (01) ==
LOC: LBO 04:34
PROVIDERS: PCP Family Medicine; Visit Provider Family Medicine
DX: I50.9 Heart failure, unspecified (principal); D50.0 Iron deficiency anemia secondary to blood loss (chronic); I50.30 Unspecified diastolic (congestive) heart failure
CPT/HCPCS: 36415; 80048; 85027; 71046; 83880

== ENCOUNTER 2025-01-07 12:30 | Outpatient (CLI) | payer MEDICARE, SELFPAY ==
--- NOTE | 2025-01-07 12:45 | RT.EKG_ITS ---
APPROVED REPORT Exam: Resting ECG Reason for Exam: CHF Patient Location: O HR:83 bpm ECG Measurements Heart Rate 83 AXIS TN 131 P 67 QRSd 103 QRS 15 QT 407 T 23 QTc 479 Conclusion Sinus rhythm...normal P axis, V-rate 50- 99 Normal Electrocardiogram
== END 2025-01-07 12:31 | disposition home or self-care (01) ==
LOC: DI.CARD 12:45
PROVIDERS: PCP Family Medicine; Referring Provider Family Medicine; Visit Provider Registered Nurse
DX: I50.30 Unspecified diastolic (congestive) heart failure (principal)
CPT/HCPCS: 93010

== ENCOUNTER → 2025-01-07 12:30 | Outpatient (BNVA) | payer MEDICARE, SELFPAY | PROVIDERS: PCP Family Medicine; Referring Provider Family Medicine; Visit Provider Registered Nurse | DX: I10 Essential (primary) hypertension (principal); K21.9 Gastro-esophageal reflux disease without esophagitis; R60.0 Localized edema; I50.30 Unspecified diastolic (congestive) heart failure | CPT/HCPCS: 93005; 99214 ==

== ENCOUNTER 2025-02-18 11:38 | Outpatient (CLI) | payer MEDICARE, SELFPAY ==
[2025-02-18 12:34] LABS: ALT 37 U/L (14-59); AST 23 U/L (15-37); Albumin 3.7 g/dL (3.4-5.0); Alkaline Phosphatase 91 U/L (46-116); Anion Gap 10.6 mmol/L (3-11); BUN 15 mg/dL (7-18); Bilirubin, Total 0.3 mg/dL (0.2-1.0); CO2 30.4 mmol/L (21.0-32.0); CREATININE 1.3 mg/dL (0.55-1.02); Calcium 9.2 mg/dL (8.5-10.1); Chloride 106 mmol/L (98-107); Estimated GFR 41.06 (mL/min/1.73m2); Glucose 100 mg/dL (74-106); Potassium 3.6 mmol/L (3.5-5.1); Sodium 147 mmol/L (136-145); Total Protein 7.8 g/dL (6.4-8.2)
== END 2025-02-18 11:39 | disposition home or self-care (01) ==
LOC: LOS 11:39
PROVIDERS: PCP Family Medicine; Visit Provider Family Medicine
DX: I10 Essential (primary) hypertension (principal)
CPT/HCPCS: 36415; 80053

== ENCOUNTER 2025-03-21 10:35 | Observation (INO) | payer MEDICARE, SELFPAY ==
[2025-03-21] VITALS (36 sets, daily range): BP systolic 92–126; BP diastolic 21–71; PULSE 70–102; RESP 12–30; TEMP 36.4–37.7; O2SAT 88–99
--- NOTE | 2025-03-21 10:30 | RT.EKG_ITS ---
APPROVED REPORT Exam: Resting ECG Reason for Exam: Chest pain SoB Patient Location: E HR:92 bpm ECG Measurements Heart Rate 92 AXIS AR 129 P 53 QRSd 99 QRS 35 QT 372 T 73 QTc 459 Conclusion Sinus rhythm...normal P axis, V-rate 60- 99 No Occlusion ME
[2025-03-21] MEDS: Albuterol/Ipratropium 3 ML UPD VIAL UPD ×2 (11:00→12:04)
--- NOTE | 2025-03-21 11:00 | DI.RAD_ITS ---
Exam(s) XR CHEST 2V PA LATERAL EXAM: XR CHEST 2V PA LATERAL CLINICAL HISTORY: fever, shortness of breath. TECHNIQUE: 2D digital imaging was performed. COMPARISON: CR XR CHEST 2V PA LATERAL from 01/02/2025 FINDINGS: 2 views: Chest leads in place. Surgical clips noted in the right breast. Heart size is normal. The mediastinum is not widened. No confluent infiltrates but there does appear to be pleural effusions on the lateral view. Also pul monary venous hypertension pattern IMPRESSION: Possible pleural effusions seen on lateral view. DATA REPOSITORY: RADIATION DOSE DELIVERED:
[2025-03-21 11:07] LABS: BE (Venous) 2 mmol/L (-2-3); HCO3 (Venous) 26 mmol/L (23-28); Lactate 1.5 mmol/L (<or=2.0); O2 Sat (Venous) 76 %; TCO2 (Venous) 24 mmol/L (24-29); pCO2 (Venous) 39 mmHg (41-51); pH (Venous) 7.43 (7.31-7.41); pO2 (Venous) 41 mmHg
[2025-03-21 11:10] LABS: Abs Immature Grans 0.09 10^3/uL (0.0-0.06); Absolute Basophil Count 0.04 10^3/uL (0.0-0.2); Absolute Eosinophil Count 0.04 10^3/uL (0.0-0.7); Absolute Monocyte Count 1.11 10^3/uL (0.1-0.8); Basophils % 0.2 %; Eosinophils % 0.2 %; HCT 41.6 % (36.0-46.0); HGB 12.8 g/dL (11.2-15.7); Immature Grans % 0.5 %; Lymphocytes % 5.8 %; MCH 26.8 pg (27.0-33.0); MCHC 30.8 % (32.0-36.0); MCV 87 fL (80-95); MPV 9.1 fL (8.0-11.0); Monocytes % 6.3 %; Platelet Count 260 10^3/uL (130-400); RBC 4.77 10^6/uL (3.93-5.22); RDW 15.9 % (11.7-14.6); WBC 17.61 10^3/uL (4.4-10.8)
[2025-03-21 11:12] LABS: Absolute Lymphocyte Count 1.02 10^3/uL (1.2-3.4); Absolute Neutrophil Count 15.32 10^3/uL (1.2-6.7)
[2025-03-21] MEDS: methylPREDNISolone SUCC 125 MG VIAL 80 MG IVP (11:27)
[2025-03-21] MEDS: cefTRIAXone 2 GM/50 ML BAG IVPB (11:30)
[2025-03-21 11:33] LABS: ALT 21 U/L (14-59); AST 16 U/L (15-37); Alkaline Phosphatase 94 U/L (46-116); Anion Gap 9.2 mmol/L (3-11); BUN 12 mg/dL (7-18); Bilirubin, Total 0.5 mg/dL (0.2-1.0); CO2 26.8 mmol/L (21.0-32.0); CREATININE 1.3 mg/dL (0.55-1.02); Calcium 8.9 mg/dL (8.5-10.1); Chloride 101 mmol/L (98-107); Estimated GFR 41.06 (mL/min/1.73m2); Glucose 126 mg/dL (74-106); NT-proBNP 407 pg/mL (<300); Potassium 3.5 mmol/L (3.5-5.1); Sodium 137 mmol/L (136-145); Total Protein 7.5 g/dL (6.4-8.2); Troponin I 8 ng/L (<or=51)
[2025-03-21] MEDS: Normal Saline 1,000 ML 150 ML IV (11:55)
[2025-03-21] MEDS: Acetaminophen 500 MG TAB PO (12:45)
[2025-03-21] MEDS: DOXYCYCLINE 100 MG in Normal Saline 100 ML IVPB ×2 (12:45→22:13)
--- NOTE | 2025-03-21 12:50 | ED.GENADUL_ITS ---
Discharge Plan Disposition Patient Disposition: Admit to [facility] Discharge Details Admit Date/Time: 03/21/25 13:29 Admit Provider: Himanshu Landeros Attending Provider: Himanshu Landeros Primary Care Provider: Poly Copeland ED Provider: Naila Lemus Discharge Data Discharge Date/Time-TO BE ENTERED AT DEPARTURE: 03/21/25 13:47 HPI General Date/Time Provider Initiated Documentation: 03/21/25 10:52 . HPI Narrative: 84-year-old female with SOB, cough, and weakness since last evening, accompanied by shaking chills. PMH includes COPD, anemia, and recent admission for internal hemorrhoids with anemia. Using oxygen at home since last evening. Unable to catch breath after using inhalers, called ambulance. Exposed to sick contacts; grandsons had fevers and coughs last week. No chest discomfort. Related Data Home Medications ?Medication ?Instructions ?Recorded ?Confirmed aspirin 81 mg chewable tablet 81 mg PO DAILY 11/05/15 03/21/25 (Aspirin Low-Strength) multivitamin (Daily Multiple 1 ea PO DAILY 04/07/17 03/21/25 tablet) calcium 600 mg-D3 800 unit-mag11 1 tab PO DAILY 01/15/19 03/21/25 50 bd-uxpt-ukphpr-bandar-s.borat tablet cholecalciferol (vitamin D3) 25 1,000 unit PO DAILY 07/26/19 03/21/25 mcg (1,000 unit) capsule ascorbic acid (vitamin C) 500 mg 500 mg PO DAILY 01/10/24 03/21/25 tablet triamcinolone acetonide 0.1 % 1 applic topical BID #80 grams 01/10/24 03/21/25 topical cream albuterol sulfate 90 mcg/actuation 2 puff inhalation QID PRN 05/15/24 03/21/25 aerosol inhaler shortness of breath or wheezing #3 ea levothyroxine 75 mcg tablet 75 mcg PO DAILY #90 tabs 06/11/24 03/21/25 potassium chloride 20 mEq 20 meq PO BID #180 tabs 07/10/24 03/21/25 tablet,extended release(part/cryst) Breztri Aerosphere 160 2 inh inhalation BID #10.7 grams 10/20/24 03/21/25 mcg-9mcg-4.8mcg/actuation HFA aerosol inhaler (mcdmhbmvng-uorjdpzc-fjfngkxslt) omeprazole 20 mg capsule,delayed 20 mg PO DAILY #90 tab-caps 11/21/24 03/21/25 release benzonatate 100 mg capsule 100 mg PO TID #90 caps 11/29/24 03/21/25 polyethylene glycol 3350 17 238 g PO ONCE #238 grams 12/03/24 03/21/25 gram/dose oral powder ipratropium 0.5 mg-albuterol 3 mg See Rx Instructions .Route 12/18/24 03/21/25 (2.5 mg base)/3 mL nebulization .COMPLEX #120 ea soln cyanocobalamin (vitamin B-12) 500 500 mcg PO DAILY #90 tabs 12/24/24 03/21/25 mcg tablet (Vitamin B-12) ferrous sulfate 325 mg (65 mg 325 mg PO DAILY #90 tabs 12/24/24 03/21/25 iron) tablet empagliflozin 10 mg tablet 10 mg PO QAM #90 tabs 12/27/24 03/21/25 torsemide 20 mg tablet See Rx Instructions PO QAM #540 12/27/24 03/21/25 tabs solifenacin 10 mg tablet (Vesicare) 10 mg PO DAILY #90 tabs 01/29/25 03/21/25 sacubitril 24 mg-valsartan 26 mg 1 tab PO BID #180 tabs 01/30/25 03/21/25 tablet (Entresto) Previous Rx's ?Medication ?Instructions ?Recorded triamcinolone acetonide 0.1 % 1 applic topical BID #80 grams 01/10/24 topical cream albuterol sulfate 90 mcg/actuation 2 puff inhalation QID PRN 05/15/24 aerosol inhaler shortness of breath or wheezing #3 ea levothyroxine 75 mcg tablet 75 mcg PO DAILY #90 tabs 06/11/24 potassium chloride 20 mEq 20 meq PO BID #180 tabs 07/10/24 tablet,extended release(part/cryst) Breztri Aerosphere 160 2 inh inhalation BID #10.7 grams 10/20/24 mcg-9mcg-4.8mcg/actuation HFA aerosol inhaler (ppyyuagywr-zlmxqous-gdiywsaopp) omeprazole 20 mg capsule,delayed 20 mg PO DAILY #90 tab-caps 11/21/24 release benzonatate 100 mg capsule 100 mg PO TID #90 caps 11/29/24 polyethylene glycol 3350 17 238 g PO ONCE #238 grams 12/03/24 gram/dose oral powder ipratropium 0.5 mg-albuterol 3 mg See Rx Instructions .Route 12/18/24 (2.5 mg base)/3 mL nebulization .COMPLEX #120 ea soln cyanocobalamin (vitamin B-12) 500 500 mcg PO DAILY #90 tabs 12/24/24 mcg tablet (Vitamin B-12) ferrous sulfate 325 mg (65 mg 325 mg PO DAILY #90 tabs 12/24/24 iron) tablet empagliflozin 10 mg tablet 10 mg PO QAM #90 tabs 12/27/24 torsemide 20 mg tablet See Rx Instructions PO QAM #540 12/27/24 tabs solifenacin 10 mg tablet (Vesicare) 10 mg PO DAILY #90 tabs 01/29/25 sacubitril 24 mg-valsartan 26 mg 1 tab PO BID #180 tabs 01/30/25 tablet (Entresto) Allergies Allergy/AdvReac Type Severity Reaction Status Date / Time Sulfa (Sulfonamide Allergy Intermediate BURNING Verified 03/21/25 10:48 Antibiotics) TONGUE letrozole AdvReac Intermediate Insomnia, Verified 03/21/25 10:48 depression General Stated Complaint: SOB LALA: 3 Exam Narrative Exam Narrative: General Appearance: Alert and oriented x4. Dyspneic, speaking in 2-3 word sentences. Moderate respiratory distress. Vital signs: Temperature 100.7. Tachypnea and tachycardia present. Blood pressures relatively stable. Oxygen saturation 86-90% on room air, tolerating 1 L of oxygen. HEENT: Within normal limits. Respiratory: Rhonchi throughout lungs. Cardiovascular: Regular heart rate and rhythm. Extremities: 1+ edema in bilateral lower extremities. Skin: Warm and dry, no rash. Neurological: Normal. Course Vital Signs Vital signs: Vital Signs Temperature 37.7 C H 03/21/25 10:38 Pulse 95 H 03/21/25 10:38 Respiratory Rate 30 H 03/21/25 10:38 Blood Pressure 116/63 03/21/25 10:38 Pulse Oximetry 88 L 03/21/25 10:38 Temperature 37.7 C H 03/21/25 12:45 Temperature Source Oral 03/21/25 10:47 Pulse 89 03/21/25 12:36 Pulse 87 03/21/25 12:31 Respiratory Rate 20 03/21/25 12:36 Respiratory Effort Short of Breath, Incrsd Work of Breathing 03/21/25 11:49 Respiratory Depth Shallow 03/21/25 11:49 Respiratory Pattern Tachypnea 03/21/25 11:49 Blood Pressure 126/39 L 03/21/25 12:36 Blood Pressure Mean 68 03/21/25 12:36 Blood Pressure Position Sitting 03/21/25 12:36 Pulse Oximetry 91 L 03/21/25 12:36 Oxygen Delivery Method Nasal Cannula 03/21/25 12:36 Oxygen Flow Rate 2 03/21/25 12:36 Lab/Test Results Lab/Test Results: 03/21/25 11:18 Blood Blood Culture - Pending 03/21/25 10:58 Blood Blood Culture - Pending Laboratory Tests Range/Units 03/21/25 10:58 WBC (4.4-10.8) 10^3/uL 17.61 H RBC (3.93-5.22) 10^6/uL 4.77 Hgb (11.2-15.7) g/dL 12.8 Hct (36.0-46.0) % 41.6 MCV (80-95) fL 87 MCH (27.0-33.0) pg 26.8 L MCHC (32.0-36.0) % 30.8 L RDW (11.7-14.6) % 15.9 H Plt Count (130-400) 10^3/uL 260 MPV (8.0-11.0) fL 9.1 Immature Gran % % 0.5 Neutrophils % % 87.0 Lymphocytes % % 5.8 Monocytes % % 6.3 Eosinophils % % 0.2 Basophils % % 0.2 Nucleated RBC % (0.0-0.3) % 0.0 Absolute Neutrophils (1.2-6.7) 10^3/uL 15.32 H Absolute Lymphocytes (1.2-3.4) 10^3/uL 1.02 L Absolute Monocytes (0.1-0.8) 10^3/uL 1.11 H Absolute Eosinophils (0.0-0.7) 10^3/uL 0.04 Absolute Basophils (0.0-0.2) 10^3/uL 0.04 VBG pH (7.31-7.41) 7.43 H VBG pCO2 (41-51) mmHg 39 L VBG pO2 mmHg 41 VBG HCO3 (23-28) mmol/L 26 VBG Total CO2 (24-29) mmol/L 24 VBG O2 Saturation % 76 VBG Base Excess (-2-3) mmol/L 2 VBG Lactate (<or=2.0) mmol/L 1.5 Sodium (136-145) mmol/L 137 Potassium (3.5-5.1) mmol/L 3.5 Chloride (98-107) mmol/L 101 Carbon Dioxide (21.0-32.0) mmol/L 26.8 Anion Gap (3-11) mmol/L 9.2 BUN (7-18) mg/dL 12 Creatinine (0.55-1.02) mg/dL 1.3 H Est GFR (CKD-EPI 2020) (mL/min/1.73m2) 41.06 Glucose (74-106) mg/dL 126 H Calcium (8.5-10.1) mg/dL 8.9 Total Bilirubin (0.2-1.0) mg/dL 0.5 AST (15-37) U/L 16 ALT (14-59) U/L 21 Alkaline Phosphatase (46-116) U/L 94 Troponin I (<or=51) ng/L 8 NT-Pro-B Natriuret Pep (<300) pg/mL 407 H Total Protein (6.4-8.2) g/dL 7.5 Albumin (3.4-5.0) g/dL 3.0 L Medical Decision Making Laboratory Studies Leukocytosis 17,000 with 15% neutrophils. VBG reassuring. Creatinine baseline 1.3. BNP 407. Imaging Chest x-ray: retrocardiac infiltrate. Per radiology interpretation my review Initial Assessment: 84-year-old female with shortness of breath, cough, and weakness since last evening. Shaking chills noted. History of COPD, anemia, and recent admission for internal hemorrhoids with anemia. Exposed to sick contacts. Dyspneic, speaking in 2-3 word sentences, rhonchi throughout, moderate respiratory distress. 1+ edema to bilateral lower extremities. ED Course: - Chest x-ray shows retrocardiac infiltrate. - CBC, CMP, lactate, and blood cultures ordered, pending. - Leukocytosis at 17,000 with 15% neutrophils. - VBG reassuring. - Creatinine at baseline 1.3. - BNP 407. - Fever, temp of 100.7. - Tachypnea and tachycardia. - Started ceftriaxone and doxycycline. - Patient afebrile after Tylenol. - Given Solu-Medrol 80 mg IV. - IV fluids at 150/h. - Placed on telemetry. - Requires admission for acute hypoxic respiratory failure, pneumonia with sepsis criteria. - Case discussed with admitting hospitalist team. Final Assessment: Patient with acute hypoxic respiratory failure and pneumonia meeting sepsis criteria. Treated with antibiotics, IV fluids, and steroids. Requires admission for further monitoring and management. Clinical Impression: - Acute hypoxic respiratory failure - Pneumonia - Sepsis - COPD - Anemia - CHF Disposition: - Admission: Requires admission for acute hypoxic respiratory failure, pneumonia with sepsis criteria. MDM Components Evaluation: - Number of Differential Diagnoses or Management Options: Acute hypoxic respiratory failure, pneumonia, sepsis, COPD, anemia, CHF. - Amount and Complexity of Data Reviewed: Chest x-ray, CBC, CMP, lactate, blood cultures, VBG, BNP. - Risk of Complication and Morbidity or Mortality: High risk due to acute hypoxic respiratory failure, pneumonia, and sepsis. Quality:[facility] Health Related Social Needs: Health related social needs housing instability, house d, with risk of homelessness ([id number]) Critical Care Time Critical Care Time Attestation: 35 minutes of critical care time secondary to acute hypoxic respiratory failure requiring oxygen and multiple DuoNebs with IV antibiotics for sepsis and pneumonia, diagnostic interpretation of labs, telemetry monitoring, diagnostic imaging interpretation, and hospitalist consultation admission PFSH All Active Problems (Updated 03/21/25 @ 14:18 by Vidhi Vásquez APRN) CKD (chronic kidney disease) stage 3, GFR 30-59 ml/min (Acute) On deep vein thrombosis (DVT) prophylaxis (Acute) Sepsis (Acute) Acute on chronic hypoxic respiratory failure (Acute) Pleural effusion (Acute) CAP (community acquired pneumonia) (Acute) Change in hearing (Acute) B12 deficiency (Acute) Diastolic CHF (Acute) Anemia (Chronic) COPD exacerbation (Acute) Trigger finger, left ring finger (Acute) Former smoker (Acute) Renal insufficiency (Chronic) Trigger finger, left little finger (Acute) DOS: 06/21/23 Hypothyroid (Chronic) Chronic obstructive lung disease, type A (Chronic 03/26/13) Essential hypertension (Acute 10/05/13) Gastroesophageal reflux disease without esophagitis (Chronic) Obesity (Chronic) Ascending aorta dilatation (Acute) 3.7 cm on 11/2019 SOB (shortness of breath) (Acute) Screening for colon cancer (Acute) Hyperplastic colon polyp (Acute) Serrated adenoma of colon (Acute) Cough (Acute) Peripheral neuropathy (Acute) Ankle pain (Acute) Edema (Acute) Hypoxia (Acute) Medical History Contusion of arm, right Muscle strain of right upper arm Edema Ulnar neuropathy Carpal tunnel syndrome Smoker 1PPD/47 years--quit 10/24/2002 Asthma Cholecystitis 10/29/09 unspecified Impacted cerumen of right ear 01/15/15 Vitamin D deficiency disease (08/12/08) Tinnitus (01/15/15) Sensory hearing loss, bilateral (01/15/15) Osteoarthritis of right knee (10/29/15) 10/29/15; END STAGE RIGHT KNEE Metastatic colon cancer in female (01/23/17) 01/23/2017; 11/06 L.N. + ; S/P RIGHT HEMICOLECTOMY Malignant neoplasm of female breast (12/21/08) left mastectomy Hiatal hernia (09/02/08) Urinary, incontinence, stress female (05/04/11) Diverticulosis of colon without diverticulitis (11/19/08) As found during colonoscopy on 11/06/08 Disorder of vitamin B12 Anticoagulated on warfarin W/U neg. Breast cancer Colon polyp Renal insufficiency, mild Surgical History History of total bilateral knee replacement (TKR) Left carpal tunnel syndrome S/P ECTR: 02/02/2023 History of colonoscopy (~12/2021) Status post cholecystectomy Status post laparoscopic hysterectomy Status post left mastectomy (12/10/14) b/l S/P laparoscopic hysterectomy S/P total knee replacement left-2002; right-10/2005 Hysterectomy, Laproscopic (~1978) Hemicolectomy (01/23/17) RIGHT Colonoscopy - MAC (05/12/18) Colonoscopy - MAC (04/12/17) Cholecystectomy (~10/2009) Breast, Mastectomy Bilat Arthroplasty 10/29/15; RIGHT KNEE; DR. FORBES Family History Mother , 71 Heart disease Colon cancer Father , 75 Essential hypertension Heart disease Alcohol abuse Maternal Grandfather , 82 Essential hypertension Heart disease Stroke Paternal Grandfather , 62 Heart disease Maternal Grandmother , 88 Essential hypertension Breast cancer Paternal Grandmother , 98 Diabetes Essential hypertension Stroke Sister Asthma Sister No problems noted. Sister No problems noted. Son No problems noted. Son No problems noted. Son No problems noted. Social History Smoking/Tobacco Use Status: Former Tobacco Use tobacco type: cigarettes Quit Date: 10/24/05 Tobacco: How many years used: 45 Second Hand Exposure: Yes Smoking risk assessment performed?: Yes Alcohol Intake: never Drug use: Never Substance use type: does not use Caregiver/Support person: No Household members: other Housing: apartment Communication Needs: None current occupation: [employer] Pets and animals: No Sexually active: No Do you think of yourself as: straight/heterosexual Current gender identity: female What is your relationship status?: How often do you talk on the phone with friends or family?: three or more times per week How often do you get together with friends or relatives?: three or more times per week How often do you attend roman catholic or anabaptist services?: decline to answer Do you belong to any clubs or organized social groups?: no Panel score (0-1 are the most socially isolated patients): 1 What type of physical activity do you participate in: other Details: Treadmill Duration: 15-30 minutes/day Frequency: daily Tabatha/Amish: Lutheran Special tabatha needs: No Seatbelt use: always Helmet use: No Drive intox or ride w/intox straight truck driver: No Do you feel safe at home: Yes Do you feel safe in your relationship?: Yes Additional Social history: lives alone
[2025-03-21 12:52] LABS: COVID-19 PCR Negative (Negative); Influenza A PCR Negative (Negative); Influenza B PCR Negative (Negative); RSV PCR Negative (Negative)
[2025-03-21 13:10] LABS: Source Nasopharynx
--- NOTE | 2025-03-21 13:12 | HPE_ITS ---
Date of service: 03/21/25 Time of Service: 13:12 Assessment and Plan Assessment and plan (1) Sepsis: Status: Acute Assessment and plan: Tachypne[place] RR > 20 [place] [address] Source pneumonia Blood Cx pending (2) Acute on chronic hypoxic respiratory failure: Status: Acute Assessment and plan: On O2 at 2 l/min PRN at home most likely d/t pneumonia VS pleural effusion but in the setting of lower blood prssure with increased O2 requirement will consider emboli and add a d-dimer - if positive will order a CTA chest Increased to continuous oxygen requirement with desaturation below 88% Pneumonia with questionable pleural effusion - procalcitonin ordered Ceftraixone and doxycycline Mucinex, IS, acapella On home diuretics PRN nebs steroids Ongoing home regimen for COPD (3) CAP (community acquired pneumonia): Status: Acute Assessment and plan: As above (4) Pleural effusion: Status: Acute Assessment and plan: As per point 2 (5) Diastolic CHF: Status: Acute Assessment and plan: Continue home medicine regimen (6) COPD exacerbation: Status: Acute Assessment and plan: Continue home medicine regimen (7) Hypothyroid: Status: Chronic Assessment and plan: Continue home medicine regimen (8) Essential hypertension: Status: Acute Assessment and plan: Continue home medicine regimen (9) Gastroesophageal reflux disease without esophagitis: Status: Chronic Assessment and plan: Continue home medicine regimen (10) Obesity: Status: Chronic Assessment and plan: weight management as per PCP - consider GLP-1 (11) On deep vein thrombosis (DVT) prophylaxis: Status: Acute Assessment and plan: LMWH (12) Anemia: Status: Chronic Assessment and plan: improving from previous intermittent rectal bleeding reported but improved frequency to prior H&H in AM (13) CKD (chronic kidney disease) stage 3, GFR 30-59 ml/min: Status: Acute Assessment and plan: better than baseline CTA might increase Cr continue to monitor discussed with Dr. Landeros History of Present Illness History of Present Illness Chief Complaint: Shortness of breath Narrative: This 84 years old female patient with a past medical history of intermittent oxygen dependence COPD with recent hospitalization in 11/2024 for COPD exacerbation and progressive anemia d/t chronic GI bleed , hypothyroidism, HFpEF with last LVEF 55 - 60%, GERD , colon CA, breast cancer with bilateral mastectomy, presented to the ED for evaluation of increased shortness of breath and increased hypoxia on baseline PRN O2. Work-up in the ED showed pleural effusion and was suspicious for retro-cardiac pneumonia, WBC 17, Cr at baseline, BNP<500, troponins negative, EKG non-diagnostic for coronary occlusion. The patient continued to require increased O2 supplementation in the ED s/p treatment with nebs, IV steroids and antibiotics. The patient was admitted to the medical surgical floor for sepsis, acute on chronic respiratory failure in the setting of pneumonia and pleural effusion. The patient has a COLST from 04/07/2021 stating DNR/DNI, confirmed today.Reports chills last night, generalized weakness, coughing with increased sputum production and change in color. Denies objective fever, chest pain, dizziness, nausea, vomiting, diarrhea, or dysuria. Sick contact- grand children at a basketball game 2 weeks prior.Negative upper respiratory viral panel Review of Systems All systems reviewed & are unremarkable except as noted in HPI and below PFSH All Active Problems (Updated 03/21/25 @ 14:18 by Vidhi Vásquez APRN) CKD (chronic kidney disease) stage 3, GFR 30-59 ml/min (Acute) On deep vein thrombosis (DVT) prophylaxis (Acute) Sepsis (Acute) Acute on chronic hypoxic respiratory failure (Acute) Pleural effusion (Acute) CAP (community acquired pneumonia) (Acute) Change in hearing (Acute) B12 deficiency (Acute) Diastolic CHF (Acute) Anemia (Chronic) COPD exacerbation (Acute) Trigger finger, left ring finger (Acute) Former smoker (Acute) Renal insufficiency (Chronic) Trigger finger, left little finger (Acute) DOS: 06/21/23 Hypothyroid (Chronic) Chronic obstructive lung disease, type A (Chronic 03/26/13) Essential hypertension (Acute 10/05/13) Gastroesophageal reflux disease without esophagitis (Chronic) Obesity (Chronic) Ascending aorta dilatation (Acute) 3.7 cm on 11/2019 SOB (shortness of breath) (Acute) Screening for colon cancer (Acute) Hyperplastic colon polyp (Acute) Serrated adenoma of colon (Acute) Cough (Acute) Peripheral neuropathy (Acute) Ankle pain (Acute) Edema (Acute) Hypoxia (Acute) Medical History Contusion of arm, right Muscle strain of right upper arm Edema Ulnar neuropathy Carpal tunnel syndrome Smoker 1PPD/47 years--quit 10/24/2002 Asthma Cholecystitis 10/29/09 unspecified Impacted cerumen of right ear 01/15/15 Vitamin D deficiency disease (08/12/08) Tinnitus (01/15/15) Sensory hearing loss, bilateral (01/15/15) Osteoarthritis of right knee (10/29/15) 10/29/15; END STAGE RIGHT KNEE Metastatic colon cancer in female (01/23/17) 01/23/2017; 11/06 L.N. + ; S/P RIGHT HEMICOLECTOMY Malignant neoplasm of female breast (12/21/08) left mastectomy Hiatal hernia (09/02/08) Urinary, incontinence, stress female (05/04/11) Diverticulosis of colon without diverticulitis (11/19/08) As found during colonoscopy on 11/06/08 Disorder of vitamin B12 Anticoagulated on warfarin W/U neg. Breast cancer Colon polyp Renal insufficiency, mild Surgical History History of total bilateral knee replacement (TKR) Left carpal tunnel syndrome S/P ECTR: 02/02/2023 History of colonoscopy (~12/2021) Status post cholecystectomy Status post laparoscopic hysterectomy Status post left mastectomy (12/10/14) b/l S/P laparoscopic hysterectomy S/P total knee replacement left-2002; right-10/2005 Hysterectomy, Laproscopic (~1978) Hemicolectomy (01/23/17) RIGHT Colonoscopy - MAC (05/12/18) Colonoscopy - MAC (04/12/17) Cholecystectomy (~10/2009) Breast, Mastectomy Bilat Arthroplasty 10/29/15; RIGHT KNEE; DR. FORBES Family History Mother , 71 Heart disease Colon cancer Father , 75 Essential hypertension Heart disease Alcohol abuse Maternal Grandfather , 82 Essential hypertension Heart disease Stroke Paternal Grandfather , 62 Heart disease Maternal Grandmother , 88 Essential hypertension Breast cancer Paternal Grandmother , 98 Diabetes Essential hypertension Stroke Sister Asthma Sister No problems noted. Sister No problems noted. Son No problems noted. Son No problems noted. Son No problems noted. 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 Pets and animals: No Sexually active: No Do you think of yourself as: straight/heterosexual Current gender identity: female What is your relationship status?: How often do you talk on the phone with friends or family?: three or more times per week How often do you get together with friends or relatives?: three or more times per week How often do you attend anabaptism or latter-day services?: decline to answer Do you belong to any clubs or organized social groups?: no Panel score (0-1 are the most socially isolated patients): 1 What type of physical activity do you participate in: other Details: Treadmill Duration: 15-30 minutes/day Frequency: daily Tabatha/Zoroastrian: Catholic Special tabatha needs: No Seatbelt use: always Helmet use: No Drive intox or ride w/intox 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 Do you feel safe at home: Yes Do you feel safe in your relationship?: Yes Additional Social history: lives alone Meds Allergies and Home Medications Allergies Allergy/AdvReac Type Severity Reaction Status Date / Time Sulfa (Sulfonamide Allergy Intermediate BURNING Verified 03/21/25 10:48 Antibiotics) TONGUE letrozole AdvReac Intermediate Insomnia, Verified 03/21/25 10:48 depression Home Medications ?Medication ?Instructions ?Recorded ?Confirmed ?Type aspirin 81 mg chewable tablet 81 mg PO DAILY 11/05/15 03/21/25 History (Aspirin Low-Strength) multivitamin (Daily Multiple 1 ea PO DAILY 04/07/17 03/21/25 History tablet) calcium 600 mg-D3 800 unit-mag11 1 tab PO DAILY 01/15/19 03/21/25 History 50 mh-grgr-zypxps-bandar-s.borat tablet cholecalciferol (vitamin D3) 25 1,000 unit PO DAILY 07/26/19 03/21/25 History mcg (1,000 unit) capsule ascorbic acid (vitamin C) 500 mg 500 mg PO DAILY 01/10/24 03/21/25 History tablet triamcinolone acetonide 0.1 % 1 applic topical BID #80 grams 01/10/24 03/21/25 Rx topical cream albuterol sulfate 90 mcg/actuation 2 puff inhalation QID PRN 05/15/24 03/21/25 Rx aerosol inhaler shortness of breath or wheezing #3 ea levothyroxine 75 mcg tablet 75 mcg PO DAILY #90 tabs 06/11/24 03/21/25 Rx potassium chloride 20 mEq 20 meq PO BID #180 tabs 07/10/24 03/21/25 Rx tablet,extended release(part/cryst) Breztri Aerosphere 160 2 inh inhalation BID #10.7 grams 10/20/24 03/21/25 Rx mcg-9mcg-4.8mcg/actuation HFA aerosol inhaler (dgnxylpmgd-zsjlfqjt-zatohowdun) omeprazole 20 mg capsule,delayed 20 mg PO DAILY #90 tab-caps 11/21/24 03/21/25 Rx release benzonatate 100 mg capsule 100 mg PO TID #90 caps 11/29/24 03/21/25 Rx polyethylene glycol 3350 17 238 g PO ONCE #238 grams 12/03/24 03/21/25 Rx gram/dose oral powder ipratropium 0.5 mg-albuterol 3 mg See Rx Instructions .Route 12/18/24 03/21/25 Rx (2.5 mg base)/3 mL nebulization .COMPLEX #120 ea soln cyanocobalamin (vitamin B-12) 500 500 mcg PO DAILY #90 tabs 12/24/24 03/21/25 Rx mcg tablet (Vitamin B-12) ferrous sulfate 325 mg (65 mg 325 mg PO DAILY #90 tabs 12/24/24 03/21/25 Rx iron) tablet empagliflozin 10 mg tablet 10 mg PO QAM #90 tabs 12/27/24 03/21/25 Rx torsemide 20 mg tablet See Rx Instructions PO QAM #540 12/27/24 03/21/25 Rx tabs solifenacin 10 mg tablet (Vesicare) 10 mg PO DAILY #90 tabs 01/29/25 03/21/25 Rx sacubitril 24 mg-valsartan 26 mg 1 tab PO BID #180 tabs 01/30/25 03/21/25 Rx tablet (Entresto) Exam Narrative Exam Narrative: Constitutional Frail elderly patient appearing of stated age Neuro:alert and oriented to self, person, place time and situation. No neurological focal deficit Chest:Chest is symmetrical and normal appearance Resp: unlabored breathing, clear upper lobes, decreased LLL Cardio: regular rhythm, S1, S2, no murmur, bilateral radial and dorsalis pedis pulses are positive, palpable GI: Abdomen is not distended, soft and non tender, bowel sounds are present : Negative Costovertebral angle tenderness, no bladder distension Back/spine/Pelvis: No back tenderness, normal alignment Integumentary: No skin lesions or rash Extremities: strength 5/5 to bilateral lower and upper extremities Psych: RASS 0, congruent mood and normal affect. Results Labs 03/21/25 10:58 03/21/25 10:58 Labs: Laboratory Results - last 24 hr 03/21/25 03/21/25 10:58 12:08 WBC 17.61 H RBC 4.77 Hgb 12.8 Hct 41.6 MCV 87 MCH 26.8 L MCHC 30.8 L RDW 15.9 H Plt Count 260 MPV 9.1 Immature Gran % 0.5 Neutrophils % 87.0 Lymphocytes % 5.8 Monocytes % 6.3 Eosinophils % 0.2 Basophils % 0.2 Nucleated RBC % 0.0 Absolute Neutrophils 15.32 H Absolute Lymphocytes 1.02 L Absolute Monocytes 1.11 H Absolute Eosinophils 0.04 Absolute Basophils 0.04 VBG pH 7.43 H VBG pCO2 39 L VBG pO2 41 VBG HCO3 26 VBG Total CO2 24 VBG O2 Saturation 76 VBG Base Excess 2 VBG Lactate 1.5 Sodium 137 Potassium 3.5 Chloride 101 Carbon Dioxide 26.8 Anion Gap 9.2 BUN 12 Creatinine 1.3 H Est GFR (CKD-EPI 2020) 41.06 Glucose 126 H Calcium 8.9 Total Bilirubin 0.5 AST 16 ALT 21 Alkaline Phosphatase 94 Troponin I 8 NT-Pro-B Natriuret Pep 407 H Total Protein 7.5 Albumin 3.0 L COVID-19 Source Nasopharynx SARS-CoV-2 (PCR) Negative Influenza Type A (PCR) Negative Influenza Type B (PCR) Negative RSV (PCR) Negative Last Vital Signs Temp 37.7 C H 03/21/25 12:45 Pulse 89 03/21/25 12:36 Resp 20 03/21/25 12:36 BP 126/39 L 03/21/25 12:36 Pulse Ox 91 L 03/21/25 12:36 Time Spent Time spent with Patient: >75 minutes Time was spent: preparing to see the patient(eg.review tests), obtaining and/or reviewing separately otained hiistory, ordering medications,tests, procedures, referring, communicating with other health career specialist, indepentently interpreting results, counseling the patient and care coordination
[2025-03-21] MEDS: Benzonatate 100 MG CAP PO ×2 (15:00→20:37)
[2025-03-21 15:07] LABS: D-Dimer 2626 ng/mlFEU (<500)
[2025-03-21 15:21] LABS: Procalcitonin 0.19 ng/mL
--- NOTE | 2025-03-21 16:18 | PHA.REVIEW2 ---
Pharmacy Admission Review Admission Clinical Review Admission Pharmacy Review: CKD (chronic kidney disease) stage 3, GFR 30-59 ml/min (Acute) On deep vein thrombosis (DVT) prophylaxis (Acute) Sepsis (Acute) Acute on chronic hypoxic respiratory failure (Acute) Pleural effusion (Acute) CAP (community acquired pneumonia) (Acute) Diastolic CHF (Acute) COPD exacerbation (Acute) Essential hypertension (Acute 10/05/13) Sulfa (Sulfonamide Antibiotics) Allergy (Intermediate, Verified 03/21/25 10:48) BURNING TONGUE letrozole Adverse Reaction (Intermediate, Verified 03/21/25 10:48) Insomnia, depression Resuscitation Status DNR/DNI Height 5 ft 2.5 in Weight 90.265 kg Pharmacy Admission Review Renal Dosing Renal Dosing: BUN 12 mg/dL (7-18) 03/21/25 10:58 Creatinine 1.3 mg/dL (0.55-1.02) H 03/21/25 10:58 Medications needing adjustments: Reviewed (CrCl 35.21 mL/min) List of meds needing interventions: Current medications are okay Anticoagulation Anticoagulation: Hgb 12.8 g/dL (11.2-15.7) 03/21/25 10:58 Hct 41.6 % (36.0-46.0) 03/21/25 10:58 Plt Count 260 10^3/uL (130-400) 03/21/25 10:58 Creatinine 1.3 mg/dL (0.55-1.02) H 03/21/25 10:58 DVT Prophylaxis: Reviewed Medications: Enoxaparin (40mg daily) Relevant Labs Relevant Labs: Sodium 137 mmol/L (136-145) 03/21/25 10:58 Potassium 3.5 mmol/L (3.5-5.1) 03/21/25 10:58 Chloride 101 mmol/L (98-107) 03/21/25 10:58 Electrolytes, C-Reactive P, ESR: Reviewed Cardiac Review Cardiac Review: Troponin I 8 ng/L (<or=51) 03/21/25 10:58 NT-Pro-B Natriuret Pep 407 pg/mL (<300) H 03/21/25 10:58 Blood Pressure 92/43 1404 Blood Pressure 109/36 1331 Blood Pressure 109/38 1316 Blood Pressure 123/46 1301 Blood Pressure 119/44 1251 Blood Pressure 126/39 1236 Blood Pressure 118/36 1236 Blood Pressure 95/71 1230 Blood Pressure 126/39 1216 Blood Pressure 124/37 1200 BP, HR, EF%: Reviewed (HR 94, Ox 91, oxygen flow rate = 2) List meds needing interventions: Has orders for Entresto 24/26mg BID and torsemide 60mg qAM + 40mg qPM QTc Review QTc: Reviewed (459 from 03/21/25) IV to PO Switch IV Medications: Reviewed (ceftriaxone and doxycycline) Home Meds Home Med List reviewed: Intervened Relevent Home Meds Not ordered & why?: Ventolin (PRN) and Miralax (for bowel prep) Changed Breztri to patients own order. Asked nurse to see if patient can have this brought in from home. Waiting to hear back. Current Meds Current Medication Order Review: Reviewed Pharmacy Antibiotic Review Relevant Labs: Relevant Labs 03/21/25 10:58 Procalcitonin 0.19 WBC 17.61 10^3/uL (4.4-10.8) H 03/21/25 10:58 Procalcitonin 0.19 ng/mL 03/21/25 10:58 Temperature 36.8 C Temperature 37.7 C Temperature 37.7 C Temperature 37.7 C Pharmacy Antibiotic Activity: C/S review and Reviewed, no change Comments: Patient is on ceftriaxone and doxycycline, day 1, for sepsis/pneumonia. Blood cultures are pending.
[2025-03-21] MEDS: Enoxaparin 40 MG/0.4 ML SYR SC (16:19)
--- NOTE | 2025-03-21 17:03 | W.PC.ACHO ---
Registration Status: Primary Language: Preferred Language: ED Information & Data Chief Complaint SOB 03/21/25 12:52 Triage Note Increase in shortness of 03/21/25 10:38 breath starting Tuesday (Hx of COPD) has been utilizing her prescribed O2 at home without apparent improvement . Pain in chest with deep breath. Medical / Surgical History (Last Reviewed 11/29/24 @ 22:37 by Jinny Green MD) Contusion of arm, right Muscle strain of right upper arm Edema Ulnar neuropathy Carpal tunnel syndrome Smoker Asthma Cholecystitis Impacted cerumen of right ear Vitamin D deficiency disease (08/12/08) Tinnitus (01/15/15) Sensory hearing loss, bilateral (01/15/15) Osteoarthritis of right knee (10/29/15) Metastatic colon cancer in female (01/23/17) Malignant neoplasm of female breast (12/21/08) Hiatal hernia (09/02/08) Urinary, incontinence, stress female (05/04/11) Diverticulosis of colon without diverticulitis (11/19/08) Disorder of vitamin B12 Anticoagulated on warfarin Breast cancer Colon polyp Renal insufficiency, mild (Last Reviewed 11/29/24 @ 22:37 by Jinny Green MD) History of total bilateral knee replacement (TKR) Left carpal tunnel syndrome History of colonoscopy (~12/2021) Status post cholecystectomy Status post laparoscopic hysterectomy Status post left mastectomy (12/10/14) S/P laparoscopic hysterectomy S/P total knee replacement Hysterectomy, Laproscopic (~1978) Hemicolectomy (01/23/17) Colonoscopy - MAC (05/12/18) Colonoscopy - MAC (04/12/17) Cholecystectomy (~10/2009) Breast, Mastectomy Arthroplasty Most Recent Vital Signs Temperature 36.8 C 03/21/25 14:04 Temperature Source Oral 03/21/25 10:47 Pulse 94 H 03/21/25 14:04 Pulse Rhythm Regular 03/21/25 14:04 Pulse 82 03/21/25 13:31 Respiratory Rate 18 03/21/25 14:04 Respiratory Effort Normal, Non-Labored 03/21/25 14:04 Respiratory Depth Normal 03/21/25 14:04 Respiratory Pattern Normal 03/21/25 14:04 Blood Pressure 92/43 L 03/21/25 14:04 Blood Pressure Mean 61 03/21/25 13:31 Blood Pressure Position Sitting 03/21/25 12:36 Pulse Oximetry 91 L 03/21/25 14:04 Oxygen Delivery Method Nasal Cannula 03/21/25 14:04 Oxygen Flow Rate 2 03/21/25 14:04 Pain Level 0 03/21/25 14:04 Allergies Sulfa (Sulfonamide Antibiotics) Allergy (Intermediate, Verified 03/21/25 10:48) BURNING TONGUE letrozole Adverse Reaction (Intermediate, Verified 03/21/25 10:48) Insomnia, depression Active Medications Generic Name Dose Route Start Last Admin Trade Name Freq PRN Reason Stop Dose Admin Benzonatate 100 mg 03/21/25 14:01 03/21/25 15:00 Benzonatate 100 Mg Cap PO 100 mg TID JANET Administration Enoxaparin Sodium 40 mg 03/21/25 16:00 03/21/25 16:19 Enoxaparin 40 Mg/0.4 Ml Syr SC 40 mg Q24H JANET Administration Sodium Chloride 1,000 mls @ 150 mls/hr 03/21/25 11:34 03/21/25 13:46 Saline 1000ml Bag IV 03/21/25 18:13 0 mls/hr INFUSION STA Infusion IV IV Catheter Type [Right Saline Lock Antecubital] IV Catheter Gauge [Right 18 Antecubital] Diet Orders Category Date Time Status Diabetes Consistent CHO/Heart Healthy [DIET] Nutrition 03/21/25 Lunch Active Diagnostics 03/21/25 03/21/25 Range/Units 12:08 10:58 WBC 17.61 H (4.4-10.8) 10^3/uL RBC 4.77 (3.93-5.22) 10^6/uL Hgb 12.8 (11.2-15.7) g/dL Hct 41.6 (36.0-46.0) % MCV 87 (80-95) fL MCH 26.8 L (27.0-33.0) pg MCHC 30.8 L (32.0-36.0) % RDW 15.9 H (11.7-14.6) % Plt Count 260 (130-400) 10^3/uL MPV 9.1 (8.0-11.0) fL Immature Gran % 0.5 % Neutrophils % 87.0 % Lymphocytes % 5.8 % Monocytes % 6.3 % Eosinophils % 0.2 % Basophils % 0.2 % Nucleated RBC % 0.0 (0.0-0.3) % Absolute Neutrophils 15.32 H (1.2-6.7) 10^3/uL Absolute Lymphocytes 1.02 L (1.2-3.4) 10^3/uL Absolute Monocytes 1.11 H (0.1-0.8) 10^3/uL Absolute Eosinophils 0.04 (0.0-0.7) 10^3/uL Absolute Basophils 0.04 (0.0-0.2) 10^3/uL D-Dimer 2626 H (<500) ng/mlFEU VBG pH 7.43 H (7.31-7.41) VBG pCO2 39 L (41-51) mmHg VBG pO2 41 mmHg VBG HCO3 26 (23-28) mmol/L VBG Total CO2 24 (24-29) mmol/L VBG O2 Saturation 76 % VBG Base Excess 2 (-2-3) mmol/L VBG Lactate 1.5 (<or=2.0) mmol/L Sodium 137 (136-145) mmol/L Potassium 3.5 (3.5-5.1) mmol/L Chloride 101 (98-107) mmol/L Carbon Dioxide 26.8 (21.0-32.0) mmol/L Anion Gap 9.2 (3-11) mmol/L BUN 12 (7-18) mg/dL Creatinine 1.3 H (0.55-1.02) mg/dL Est GFR (CKD-EPI 2020) 41.06 (mL/min/1.73m2) Glucose 126 H (74-106) mg/dL Calcium 8.9 (8.5-10.1) mg/dL Total Bilirubin 0.5 (0.2-1.0) mg/dL AST 16 (15-37) U/L ALT 21 (14-59) U/L Alkaline Phosphatase 94 (46-116) U/L Troponin I 8 (<or=51) ng/L NT-Pro-B Natriuret Pep 407 H (<300) pg/mL Total Protein 7.5 (6.4-8.2) g/dL Albumin 3.0 L (3.4-5.0) g/dL Procalcitonin 0.19 ng/mL COVID-19 Source Nasopharynx SARS-CoV-2 (PCR) Negative (Negative) Influenza Type A (PCR) Negative (Negative) Influenza Type B (PCR) Negative (Negative) RSV (PCR) Negative (Negative) 03/21/25 11:18 Blood Culture - Pending Blood 03/21/25 10:58 Blood Culture - Pending Blood Intake and Output - 24 Hour Total 03/21/25 10:35 thru 03/21/25 14:04 Intake Total 437.5 Balance 437.5 Weight 90.265 kg Intake: IV 437.5 Other: Urine Appearance Clear Falls Risk Assessment History of Falls No History 03/21/25 14:04 Contributing Factors No Factors 03/21/25 14:04 Ambulatory Aids Uses ambulatory device 03/21/25 14:04 Tubes/Lines W/no contributing factors 03/21/25 14:04 Gait Evaluation No gait disturbance 03/21/25 14:04 Cognition No cognitive impairment 03/21/25 14:04 Fall Total Score 03/21/25 14:04 Level of Risk Moderate Risk 03/21/25 14:04 Problems (Last Reviewed 11/29/24 @ 22:37 by Jinny Green MD) CKD (chronic kidney disease) stage 3, GFR 30-59 ml/min (Acute) On deep vein thrombosis (DVT) prophylaxis (Acute) Sepsis (Acute) Acute on chronic hypoxic respiratory failure (Acute) Pleural effusion (Acute) CAP (community acquired pneumonia) (Acute) Diastolic CHF (Acute) Anemia (Chronic) COPD exacerbation (Acute) Hypothyroid (Chronic) Essential hypertension (Acute 10/05/13) Gastroesophageal reflux disease without esophagitis (Chronic) Obesity (Chronic) v v v v v v v v v Sending and/or Receiving Nurses: Please use comment section below to note any information pertinent to the patient hand-off not included above. Information / Comments: Pt retrieved from ED via wheelchair. Pt arrived to unit at 1346 and we were paged at [phone]. Report received from: Janet Bragg ED RN
[2025-03-21] MEDS: Torsemide 20 MG TAB 40 MG PO (18:17)
[2025-03-21] MEDS: Potassium Chloride 20 MEQ TABCR PO (20:37)
[2025-03-21] MEDS: Sacubitril/Valsartan 24 mg/26 mg TAB 1 EACH PO (20:37)
[2025-03-21] MEDS: guaiFENesin 600 MG TABCR PO (20:37)
[2025-03-21] MEDS: Normal Saline Flush 10 ML SYR IVP (20:41)
--- NOTE | 2025-03-21 23:42 | DI.CT_ITS ---
Exam(s) CT CHEST PE CTA EXAM: CT CHEST PE CTA CLINICAL HISTORY: hypoxia , hypotension , elevation in D-dimer. TECHNIQUE: Imaging Protocol: CT angiography of the chest was performed using pulmonary embolus ramesh col. Multi planar reconstructions were performed. CONTRAST MATERIAL: Intravenous: Omnipaque 350 Contrast volume: 100 cc COMPARISON: CT CT CHEST WO from 11/27/2024 CR XR CHEST 2V PA LATERAL from 03/21/2025 FINDINGS: CHEST: PULMONARY ARTERIES: There are no intraluminal filling defects to suggest acute pulmonary emboli. LUNGS: There is pleural based infiltrate in the posterior basal segment of the right lower lobe. No associated pleural effusion. Also some infiltrate slightly higher up in the right lower lobe. MEDIASTINUM: There is no hilar nor mediastinal adenopathy. CARDIAC: Heart size is upper normal. There is no pericardial effusion.Caliber of the thoracic aorta is within normal limits. No evidence of dissection. There is no significant shift of the interventri cular septum. PARTIALLY VISUALIZED UPPERMOST ABDOMEN: No significant adrenal masses. However, there is a finding i n the anterior aspect of the left kidney measuring 3 by 2.2 cm, only partially included in the field of view of this chest study. Difficult to determine cystic versus solid lesion at this level. Liver is hypodense implying steatosis. OSSEOUS: No significant osseous lesions.Fractures.. IMPRESSION: 1. No evidence of acute pulmonary emboli. For, there is confluent pleural based infiltrate in the ri ght lower lobe; posterior basal segment. No associated pleural effusions. 2. Incidentally noted is a possible mass in the anterior aspect of the left kidney, only partially in cluded in the field of view of this chest study. Recommend follow-up renal ultrasound. [facility] report reviewed. RADIATION DOSE DELIVERED: 60.27 mGy.cm Total DLP DATA REPOSITORY: All CT scans at this facility are submitted to the National Radiology Data Registry (NRDR) Dose Index Registry (DIR) with the [employer] (ACR). RADIATION OPTIMIZATION: All CT scans at this facility use at least one of these dose optimization te chniques: automated exposure control; mA and/or kV adjustment per patient size (includes targeted exa ms where dose is matched to clinical indication); or iterative reconstruction.
[2025-03-21] MEDS: Omnipaque 350 MG/ML 100 ML BTL 80 ML IJ (23:44)
[2025-03-21] MEDS: Normal Saline - Diluent 50 ML VIAL IJ (23:44)
--- NOTE | 2025-03-22 00:30 | DI.VRAD_ITS ---
PROCEDURE INFORMATION: Exam: CTA Chest With Contrast Exam date and time: 03/21/2025 7:34 PM Age: 84 years old Clinical indication: Other: Hypoxia , hypotension , elevation in d-dimer TECHNIQUE: Imaging protocol: Computed tomographic angiography of the chest with contrast. Exam focused on the arteries. 3D rendering (Not supervised by radiologist): MIP and/or 3D reconstructed images were created by the technologist. Radiation optimization: All CT scans at this facility use at least one of these dose optimization techniques: automated exposure control; mA and/or kV adjustment per patient size (includes targeted exams where dose is matched to clinical indication); or iterative reconstruction. Contrast material: [id number]; Contrast volume: 80 ml; Contrast route: INTRAVENOUS (IV); COMPARISON: CT CHEST PE CTA 11/16/2019 3:01 PM FINDINGS: Pulmonary arteries: No acute pulmonary emboli. Aorta: Atherosclerotic disease of the thoracic aorta, without aneurysm or dissection. Lungs: Mild upper lobe centrilobular emphysema. Focal consolidations within the right lower lobe, compatible with multifocal pneumonia. Pleural spaces: Unremarkable. No pneumothorax. No pleural effusion. Heart: Calcification of the mitral valve and aortic valve annulus. Coronary arteries: Mild three-vessel coronary artery atherosclerotic disease. Lymph nodes: Unremarkable. No enlarged lymph nodes. Diaphragm: Small-sized hiatal hernia. Bones/joints: Unremarkable. No acute fracture. Soft tissues: Unremarkable. IMPRESSION: 1. No acute pulmonary emboli. 2. Focal consolidations within the right lower lobe, compatible with multifocal pneumonia. Recommend follow-up. Dictated and Authenticated by: Arun Nava MD. Orderin Fahad Mosher MD
[2025-03-22] MEDS: Levothyroxine 75 MCG TAB PO (05:48)
[2025-03-22 07:16] LABS: Abs Immature Grans 0.04 10^3/uL (0.0-0.06); Absolute Basophil Count 0.03 10^3/uL (0.0-0.2); Absolute Lymphocyte Count 0.69 10^3/uL (1.2-3.4); Absolute Monocyte Count 0.61 10^3/uL (0.1-0.8); Basophils % 0.2 %; HCT 39.9 % (36.0-46.0); HGB 12.2 g/dL (11.2-15.7); Immature Grans % 0.3 %; Lymphocytes % 5.5 %; MCH 26.8 pg (27.0-33.0); MCHC 30.6 % (32.0-36.0); MCV 88 fL (80-95); MPV 9.5 fL (8.0-11.0); Monocytes % 4.9 %; Neutrophils % 89.1 %; Platelet Count 260 10^3/uL (130-400); RBC 4.56 10^6/uL (3.93-5.22); RDW 15.9 % (11.7-14.6); RDW-SD 50.4 fL; WBC 12.52 10^3/uL (4.4-10.8)
[2025-03-22 07:19] LABS: Absolute Neutrophil Count 11.16 10^3/uL (1.2-6.7)
[2025-03-22 07:35] LABS: Anion Gap 8.3 mmol/L (3-11); BUN 18 mg/dL (7-18); CO2 26.7 mmol/L (21.0-32.0); CREATININE 1.3 mg/dL (0.55-1.02); Calcium 9.1 mg/dL (8.5-10.1); Chloride 105 mmol/L (98-107); Estimated GFR 41.06 (mL/min/1.73m2); Glucose 116 mg/dL (74-106); Potassium 4.2 mmol/L (3.5-5.1); Sodium 140 mmol/L (136-145)
[2025-03-22] MEDS: Benzonatate 100 MG CAP PO (07:51)
[2025-03-22] MEDS: Empaglifozin 10 MG TAB PO (07:51)
[2025-03-22] MEDS: Ferrous Sulfate 325 MG TAB PO (07:52)
[2025-03-22] MEDS: Sacubitril/Valsartan 24 mg/26 mg TAB 1 EACH PO (07:52)
[2025-03-22] MEDS: Cholecalciferol (Vitamin D3) 1,000 UNIT TAB 1000 UNITS PO (07:52)
[2025-03-22] MEDS: Multivitamin TAB 1 TAB PO (07:52)
[2025-03-22] MEDS: Potassium Chloride 20 MEQ TABCR PO (07:52)
[2025-03-22] MEDS: guaiFENesin 600 MG TABCR PO (07:52)
[2025-03-22] MEDS: Calcium 600mg/Vit D 200U TAB 1 TAB PO (07:52)
[2025-03-22] MEDS: Aspirin 81 MG CHEW PO (07:52)
[2025-03-22] MEDS: Omeprazole 20 MG CAPCR PO (07:52)
[2025-03-22] MEDS: Ascorbic Acid 500 MG TAB PO (07:52)
[2025-03-22] MEDS: predniSONE 20 MG TAB 40 MG PO (07:52)
[2025-03-22] MEDS: Torsemide 20 MG TAB 60 MG PO (07:52)
[2025-03-22] MEDS: Cyanocobalamin 500 MCG TAB PO (07:52)
[2025-03-22] MEDS: Normal Saline Flush 10 ML SYR IVP (07:54)
[2025-03-22 08:30] VITALS: O2SAT 100
[2025-03-22 08:42] VITALS: BP 102/55; PULSE 72; RESP 15; TEMP 36.1; O2SAT 96
--- NOTE | 2025-03-22 08:48 | PDOC.CMIN ---
Date of service: 03/22/25 Time of Service: 08:48 Care Management Initial Assmt Initial Assessment Reason for Hospitalization: Sepsis, Pneumonia Functional Status/Living Situation Patient Presentation: Kelly was sitting in a recliner and is accompanied by her friend Lidia when CM met with her. She refers to Lidia as her partner in crime, evidently the two are serious knitting partners. Kelly lives alone in [place], she drives and is independent at baseline. She has 3 sons, 2 live in [place] and the other in [facility]. Kelly has several grandchildren and great grandchildren that live locally and are quite attentive to her needs. Per Lidia, she is feeling better and if it wasn't for her cough she would be 100%. Culture pending, CT results pending and PT consult is pending for today. CM will continue to follow. Town of Residence: [place] Resides with: Alone Significant Other/Family: Local Natural Supports: Children and Grandchildren Employment Status: Retired (Semi retired per pt, a[employer]sha part-time) Instrumental Activities of Daily Living (ADLs): Independent Medications Medication Management: No Issues/Barriers identified Physical Functioning/Mobility Assistive Device: Cane-PRN Advance Directives Advance Directives: Do you have an Advance Directive: Y 11/26/21 12:05 AD On File at [facility]: Y 11/26/21 12:05 Date Asked 12/05/18 03/22/25 08:56 AD Date Reviewed 03/21/25 03/22/25 08:54 COLST On File at [facility] COLST Date Scanned Code Status Resuscitation Status DNR/DNI Insurance Coverage/Financial Issues Insurance: [employer] Medicare Replacement - [id number] FINANCIAL ASST 100 - [id number] Care Team Visit Care Team Role Provider Type Vidhi Vásquez APRN MD [facility] STAFF PHYSICIAN Poly Copeland MD, [place] Primary Care Provider [facility] In[facility] Other Providers OTHER SARAH Orantes Emergency Provider [facility] Himanshu Landeros Admit Provider [facility] STAFF PHYSICIAN Attending Provider Discharge Potential Discharge Needs: PT Evaluation and PCP F/U Appt Anticipated Barriers to Discharge: None Identified Patient/Family Education Needs: Review discharge instructions, discuss Ask Me Three Transportation: Private vehicle Plan: Anticipate, Kelly will be discharged home, possibly with new home health services for PT and [facility], when medically stable. She will follow up with her community providers and plan of care and transport with one of her grandchildren. CM will follow and continue to assess for discharge needs. Social Determinants of Health Screening Social Determinants of health last assessed in clinic: 03/22/25 Will the Patient Participate in the Screening?: Yes Do you worry about having a steady place to live?: no Problems where you live: no known problems In the past 12 months, have you had to go without electric, gas, oil or water in your home?: no 1. Within the past 12 months, we worried whether our food would run out before we got money to buy more.: Never true 2. Within the past 12 months, the food we bought just didn't last and we didn't have money to get more.: Never true Has lack of transportation kept you from medical appointments or from doing things needed for daily living?: no Has anyone in your life made you feel unsafe or unsupported?: no How hard is it for you to pay for the very basics like food, housing, medical care, and heating? Would you say it is:: Not hard at all Do you want help finding or keeping work or a job?: I do not need or want help If for any reason you need help with day-to-day activities such as bathing, preparing meals, shopping, managing finances, etc., do you get the help you need?: I don?t need any help How often do you feel lonely or isolated from those around you?: Never Do you speak a language other than [place] at home?: No Does the patient want assistance with any of the above?: No PFSH All Active Problems (Updated 03/21/25 @ 14:18 by Vidhi Vásquez APRN) CKD (chronic kidney disease) stage 3, GFR 30-59 ml/min (Acute) On deep vein thrombosis (DVT) prophylaxis (Acute) Sepsis (Acute) Acute on chronic hypoxic respiratory failure (Acute) Pleural effusion (Acute) CAP (community acquired pneumonia) (Acute) Change in hearing (Acute) B12 deficiency (Acute) Diastolic CHF (Acute) Anemia (Chronic) COPD exacerbation (Acute) Trigger finger, left ring finger (Acute) Former smoker (Acute) Renal insufficiency (Chronic) Trigger finger, left little finger (Acute) DOS: 06/21/23 Hypothyroid (Chronic) Chronic obstructive lung disease, type A (Chronic 03/26/13) Essential hypertension (Acute 10/05/13) Gastroesophageal reflux disease without esophagitis (Chronic) Obesity (Chronic) Ascending aorta dilatation (Acute) 3.7 cm on 11/2019 SOB (shortness of breath) (Acute) Screening for colon cancer (Acute) Hyperplastic colon polyp (Acute) Serrated adenoma of colon (Acute) Cough (Acute) Peripheral neuropathy (Acute) Ankle pain (Acute) Edema (Acute) Hypoxia (Acute) Medical History Contusion of arm, right Muscle strain of right upper arm Edema Ulnar neuropathy Carpal tunnel syndrome Smoker 1PPD/47 years--quit 10/24/2002 Asthma Cholecystitis 10/29/09 unspecified Impacted cerumen of right ear 01/15/15 Vitamin D deficiency disease (08/12/08) Tinnitus (01/15/15) Sensory hearing loss, bilateral (01/15/15) Osteoarthritis of right knee (10/29/15) 10/29/15; END STAGE RIGHT KNEE Metastatic colon cancer in female (01/23/17) 01/23/2017; 11/06 L.N. + ; S/P RIGHT HEMICOLECTOMY Malignant neoplasm of female breast (12/21/08) left mastectomy Hiatal hernia (09/02/08) Urinary, incontinence, stress female (05/04/11) Diverticulosis of colon without diverticulitis (11/19/08) As found during colonoscopy on 11/06/08 Disorder of vitamin B12 Anticoagulated on warfarin W/U neg. Breast cancer Colon polyp Renal insufficiency, mild Surgical History History of total bilateral knee replacement (TKR) Left carpal tunnel syndrome S/P ECTR: 02/02/2023 History of colonoscopy (~12/2021) Status post cholecystectomy Status post laparoscopic hysterectomy Status post left mastectomy (12/10/14) b/l S/P laparoscopic hysterectomy S/P total knee replacement left-2002; right-10/2005 Hysterectomy, Laproscopic (~1978) Hemicolectomy (01/23/17) RIGHT Colonoscopy - MAC (05/12/18) Colonoscopy - MAC (04/12/17) Cholecystectomy (~10/2009) Breast, Mastectomy Bilat Arthroplasty 10/29/15; RIGHT KNEE; DR. FORBES Family History Mother , 71 Heart disease Colon cancer Father , 75 Essential hypertension Heart disease Alcohol abuse Maternal Grandfather , 82 Essential hypertension Heart disease Stroke Paternal Grandfather , 62 Heart disease Maternal Grandmother , 88 Essential hypertension Breast cancer Paternal Grandmother , 98 Diabetes Essential hypertension Stroke Sister Asthma Sister No problems noted. Sister No problems noted. Son No problems noted. Son No problems noted. Son No problems noted. Social History Smoking/Tobacco Use Status: Former Tobacco Use tobacco type: cigarettes Quit Date: 10/24/05 Tobacco: How many years used: 45 Second Hand Exposure: Yes Smoking risk assessment performed?: Yes Alcohol Intake: never Drug use: Never Substance use type: does not use Caregiver/Support person: No Household members: other Housing: apartment Communication Needs: None current occupation: [employer] Pets and animals: No Sexually active: No Do you think of yourself as: straight/heterosexual Current gender identity: female What is your relationship status?: How often do you talk on the phone with friends or family?: three or more times per week How often do you get together with friends or relatives?: three or more times per week How often do you attend christianity or anabaptism services?: decline to answer Do you belong to any clubs or organized social groups?: no Panel score (0-1 are the most socially isolated patients): 1 What type of physical activity do you participate in: other Details: Treadmill Duration: 15-30 minutes/day Frequency: daily Tabatha/Congregation: Jew Special tabatha needs: No Seatbelt use: always Helmet use: No Drive intox or ride w/intox mobile lounge driver or operator: No Do you feel safe at home: Yes Do you feel safe in your relationship?: Yes Additional Social history: lives alone
--- NOTE | 2025-03-22 09:21 | IN_ITS ---
PT Notes Visit Reasons: Sepsis,Pneumonia, Hypoxic Respiratory Failure Inpatient Physical Therapy Evaluation Date: 03/22/25 Referring Doctor: Vidhi Vásquez PT Orders: PT CONSULT: safety consult for d/c Precautions: hypoxia Patient Profile/Admitting Diagnosis: sepsis, chronic respiratory failure PMHX: COPD Social History/Home Situation: lives alone in [place], completely independent Current Functional Limitations: independent Equipment Owned/DME: cane Subjective: Pt admitted following an episode of increased SOB for a few days. She states she feels much better today and hopes to go home soon. She lives in [place] independently in an apartment. She is normally fully independent with all ADLs. She does have a cane that she uses occasionally on days she feels weaker. 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 She does have supplemental O2 at home but she has not needed to use it recently. She has 25 outside stairs to get up to her apartment but then lives on one floor. Objective: well-appearing, no acute distress, no supplemental O2, resting comfortably in chair Mental Status: A+Ox4 Pain: n/A Vital Signs: spO2 93% at rest on RA, dropped to 85% after walking 30 ft but recovered to >90% within a minute ROM: Able to perform AROM of bilat shoulders WFL Strength: [employer] strength equal and full bilaterally Able to perform hip/knee flexion and extension actively without issue bilaterally DF strength 5/5 bilaterally Bed Mobility/Transfers: sit to stand - independent stand to sit - independent bed mobility not witnessed Gait: -ambulates 100 ft w/o cane - spO2 dropped to 85% but recovered to >90% within 1 min, then performed again with cane and with standing breaks every 20 ft - spO2 dropped only to 87% and recovered to >90% within 1 min -ascends/descends 5 stairs w/o difficulty and w/use of 1 UE for support on railing - spO2 dropped to 86% but recovered again quickly Balance: able to perform feet together and semi tandem stance for >10 seconds Special Tests: Mobility Limitations Standardized Measure [facility] AM-PAC 6 clicks Basic Mobility Inpatient Short Form: Raw Score: 22 CMS Score: 20.91% Informed Consent/Education: Patient instructed in purpose of PT consult and plan of care. Assessment: Patient is currently doing very well functionally as she is fully independent with transfers. Her strength is full and not a concern at this time. Her ambulatory status is only limited due to her increased LONG as her spO2 decreases to about 85% on RA after about 30 ft. She does recover quickly to >90% but it was discussed with her how some mild supplemental O2 may be necessary when ambulating. She was able to perform stairs and understands the need to pace herself as this was discussed in great detail today. She does not seem to be a fall risk at this time. She can return home when medically cleared without any services but with the recommendation that she use supplemental O2 when ambulating. She will be kept on caseload while in the hospital to continue ambulatory training with and without supplemental O2. Patient is assessed as a Low 16784 complexity based on the following: History: Low Examination: Low Presentation: Low Decision Making: Low Goals: Goals X1 week 1. Gait - ambulate 100 ft without her spO2 dropping <90% either with or without supplemental O2 2. Independent with home exercise program 3. D/c to home Plan of Care/Treatment Plan: 1-2x/day, 7 days/week x 1 week. Plan of care has been reviewed with the NURSE COORDINATOR providing the service under Physical Therapy direction. Initiate Physical Therapy intervention for strengthening, bed mobility, transfers, gait, stairs, balance training, use of assistive device. DISCHARGE RECOMMENDATIONS: [x] Home with no services - but with supplemental O2 when ambulating TREATMENT CODE/TIME: Low Eval (90245) x 1 - 26 min
[2025-03-22] MEDS: cefTRIAXone 1 GM/50 ML BAG IVPB (11:29)
[2025-03-22] MEDS: DOXYCYCLINE 100 MG in Normal Saline 100 ML 50 MG IVPB (11:29)
--- NOTE | 2025-03-22 14:24 | CHAPLAIN ---
I had a brief visit wibrian Mendoza this afternoon. She had two visitors with her. I explained my role and offered support. According to [employer] notes, Kelly is supported by a good friend as well as grandchildren who live locally. Her sons are out of state.
--- NOTE | 2025-03-22 14:40 | DSE_ITS ---
Date of service: 03/22/25 Time of Service: 14:40 DS: Diagnosis Discharge Diagnosis (1) Sepsis: Status: Acute (2) Acute on chronic hypoxic respiratory failure: Status: Acute (3) CAP (community acquired pneumonia): Status: Acute (4) Pleural effusion: Status: Acute (5) Diastolic CHF: Status: Acute (6) COPD exacerbation: Status: Acute (7) Hypothyroid: Status: Chronic (8) Essential hypertension: Status: Acute (9) Gastroesophageal reflux disease without esophagitis: Status: Chronic (10) Obesity: Status: Chronic (11) On deep vein thrombosis (DVT) prophylaxis: Status: Acute (12) Anemia: Status: Chronic (13) CKD (chronic kidney disease) stage 3, GFR 30-59 ml/min: Status: Acute Discharge Plan Disposition Patient Disposition: Home Condition: Improving Discharge Details Reason For Visit: Sepsis,Pneumonia, Hypoxic Respiratory Failure Admit Date/Time: 03/21/25 13:29 Admit Provider: Himanshu Landeros Attending Provider: Himanshu Landeros Primary Care Provider: Poly Copeland [facility] Course Hospital Course: This 84 years old female patient with a past medical history of intermittent oxygen dependence COPD with recent hospitalization in 11/2024 for COPD exacerbation and progressive anemia d/t chronic GI bleed , hypothyroidism, HFpEF with last LVEF 55 - 60%, GERD , colon CA, breast cancer with bilateral mastectomy, presented to the ED for evaluation of increased shortness of breath and increased hypoxia on baseline PRN O2. Work-up in the ED showed pleural effusion and was suspicious for retro-cardiac pneumonia, WBC 17, Cr at baseline, BNP<500, troponins negative, EKG non-diagnostic for coronary occlusion. The patient continued to require increased O2 supplementation in the ED s/p treatment with nebs, IV steroids and antibiotics. The patient was admitted to the medical surgical floor for sepsis, acute on chronic respiratory failure in the setting of pneumonia and pleural effusion. D-dimer adjusted to age was psotive and CTA was negative for acute pulmonary emboli and pleural effusion, but positive for confluent pleural based infiltrate in the right lower lobe at the ; posterior basal segment. Also seen possible mass in the anterior aspect of the left kidney with recommendation for renal ultrasound. Blood cultures were negative with improving leukocytosis. On the day of discharged the patient was back to baseline oxygen requirement , hemodynamically stable and afebrile and will be discharged on on a prednisone, burst and oral antibiotics and will need to follow-up with PCP with 7 days of discharge. Recommendation for PCP follow-up: Renal ultrasound as per CTA report recommendation TSH/ free T4 trending Discussed with Dr. Landeros [place] Meds and New Rx's Prescriptions: New doxycycline hyclate 100 mg capsule 100 mg PO BID Qty: 10 0RF prednisone 20 mg tablet 40 mg PO DAILY Qty: 10 0RF cefpodoxime 200 mg tablet 200 mg PO BID Qty: 10 0RF Rx Instructions: must administer with a meal/food Continued [id number] 600 mg calcium- 800 unit-50 mg tablet 1 tab PO DAILY cholecalciferol (vitamin D3) 1,000 unit capsule 1,000 unit PO DAILY ascorbic acid (vitamin C) 500 mg tablet 500 mg PO DAILY triamcinolone acetonide 0.1 % cream 1 applic TP BID Qty: 80 2RF Rx Instructions: apply to back and chin torsemide 20 mg tablet See Rx Instructions PO QAM Qty: 540 4RF Rx Instructions: 60mg in AM and 40mg in afternoon empagliflozin 10 mg tablet 10 mg PO QAM Qty: 90 4RF aspirin [Aspirin Low-Strength] 81 MG tablet,chewable 81 mg PO DAILY albuterol sulfate 90 mcg/actuation HFA aerosol inhaler 2 puff INHALATION QID PRN (Reason: shortness of breath or wheezing) Qty: 3 3RF levothyroxine 75 mcg tablet 75 mcg PO DAILY Qty: 90 6RF potassium chloride 20 mEq tablet,ER particles/crystals 20 meq PO BID Qty: 180 4RF Breztri Aerosphere 160-9-4.8 mcg/actuation HFA aerosol inhaler 2 inh inhalation BID Qty: 10.7 8RF omeprazole 20 mg capsule,delayed release(DR/EC) 20 mg PO DAILY Qty: 90 3RF polyethylene glycol 3350 17 gram/dose powder 238 g PO ONCE Qty: 238 0RF Rx Instructions: For Colonoscopy bowel prep, as directed by office ipratropium-albuterol 0.5 mg-3 mg(2.5 mg base)/3 mL solution for nebulization See Rx Instructions .ROUTE .COMPLEX Qty: 120 11RF Dose Instruction: USE 1 VIAL IN NEBULIZER EVERY 6 HOURS Rx Instructions: USE 1 VIAL IN NEBULIZER EVERY 6 HOURS cyanocobalamin (vitamin B-12) [Vitamin B-12] 500 mcg tablet 500 mcg PO DAILY Qty: 90 5RF ferrous sulfate 325 mg (65 mg iron) tablet 325 mg PO DAILY Qty: 90 5RF solifenacin [Vesicare] 10 mg tablet 10 mg PO DAILY Qty: 90 12RF Entresto 24-26 mg tablet 1 tab PO BID Qty: 180 6RF multivitamin [Daily Multiple] 1 EACH tablet 1 ea PO DAILY benzonatate 100 mg Capsule 100 mg PO TID Qty: 90 0RF Discharge Instructions Referrals: Poly Copeland [place], [place] [Primary Care Provider] - (Follow-up within 7 days of discharge please ) Activity:: Activity as Tolerated Equipment/Supplies:: Home oxygen F[employer] HAND/cane Diet:: heart helathy DS: Summary Time Spent with Patient providing and/or coordinating discharge services: Greater than 30 minutes Status at Discharge Functional status at discharge: independent ambulation (cane at times) Overall status at discharge: patient is progressing back to baseline Mental Status: mental status grossly normal Speech and Movement: speech and movement normal Mood: congruent mood Affect: normal affect Quality:SDOH Health Related Social Needs: Health related social needs housing instability, house d, with risk of homelessness (Z59.811) Exam Narrative Exam Narrative: Constitutional Frail elderly patient appearing of stated age Neuro:alert and oriented X4 . No neurological focal deficit Chest:Chest is symmetrical and normal appearance Resp: unlabored breathing, clear upper lobes, decreased bases Cardio: regular rhythm, S1, S2, no murmur, bilateral radial and dorsalis pedis pulses are positive, palpable GI: Abdomen is not distended, soft and non tender, bowel sounds are present : Negative Costovertebral angle tenderness, no bladder distension Back/spine/Pelvis: No back tenderness, normal alignment Integumentary: No skin lesions or rash Extremities: strength 5/5 to bilateral lower and upper extremities Psych: RASS 0, congruent mood and normal affect. Psych Mental Status: mental status grossly normal Speech and Movement: speech and movement normal Mood: congruent mood Affect: normal affect DS: Data Vitals/I&O Vitals and I&O: Vital Signs Temperature 36.1 C L 03/22/25 08:42 Temperature Source Temporal Artery Scan 03/22/25 08:42 Pulse 72 03/22/25 08:42 Pulse Rhythm Regular 03/21/25 14:04 Pulse 82 03/21/25 13:31 Respiratory Rate 15 03/22/25 08:42 Respiratory Effort Normal, Non-Labored 03/21/25 14:04 Respiratory Depth Normal 03/21/25 14:04 Respiratory Pattern Normal 03/21/25 14:04 Blood Pressure 102/55 L 03/22/25 08:42 Blood Pressure Mean 70 03/22/25 08:42 Blood Pressure Position Sitting 03/21/25 12:36 Pulse Oximetry 96 03/22/25 08:42 Oxygen Delivery Method Room Air 03/22/25 08:42 Oxygen Flow Rate 0 03/22/25 08:42 Pain Level 0 03/21/25 19:43 Comment RN notified 03/22/25 08:42 Intake & Output 03/21/25 03/22/25 03/22/25 23:59 11:59 23:59 Intake Total 547.5 / 557.5 1527.5 / 1527.5 Output Total 200 / 650 550 / 550 Balance 347.5 / -92.5 977.5 / 977.5 Weight 90.265 kg Intake: IV 547.5 / 557.5 727.5 / 727.5 Oral 800 / 800 Output: Urine 200 / 650 550 / 550 Other: Urine Color Yellow Yellow Urine Appearance Clear Clear Hematuria Urine Odor Normal Comment Patient voids ind. in the toilet, with stand by assistance. Patient is inc. when she coughs. There was blood in patient's urine. Data Completed and Pending Labs on day of discharge: Labs from last 24 hours 03/22/25 03/21/25 06:45 10:58 WBC 12.52 H RBC 4.56 Hgb 12.2 Hct 39.9 MCV 88 MCH 26.8 L MCHC 30.6 L RDW 15.9 H Plt Count 260 MPV 9.5 Immature Gran % 0.3 Neutrophils % 89.1 Lymphocytes % 5.5 Monocytes % 4.9 Eosinophils % 0.0 Basophils % 0.2 Nucleated RBC % 0.0 Absolute Neutrophils 11.16 H Absolute Lymphocytes 0.69 L Absolute Monocytes 0.61 Absolute Eosinophils 0.00 Absolute Basophils 0.03 D-Dimer 2626 H Sodium 140 Potassium 4.2 Chloride 105 Carbon Dioxide 26.7 Anion Gap 8.3 BUN 18 Creatinine 1.3 H Est GFR (CKD-EPI 2020) 41.06 Glucose 116 H Calcium 9.1 Magnesium 2.0 Procalcitonin 0.19 Preliminary micro results at discharge 03/21/25 11:18 Blood Blood Culture - Preliminary NO GROWTH 24 HOURS 03/21/25 10:58 Blood Blood Culture - Preliminary NO GROWTH 24 HOURS PFSH All Active Problems (Updated 03/21/25 @ 14:18 by Vidhi Vásquez APRN) CKD (chronic kidney disease) stage 3, GFR 30-59 ml/min (Acute) On deep vein thrombosis (DVT) prophylaxis (Acute) Sepsis (Acute) Acute on chronic hypoxic respiratory failure (Acute) Pleural effusion (Acute) CAP (community acquired pneumonia) (Acute) Change in hearing (Acute) B12 deficiency (Acute) Diastolic CHF (Acute) Anemia (Chronic) COPD exacerbation (Acute) Trigger finger, left ring finger (Acute) Former smoker (Acute) Renal insufficiency (Chronic) Trigger finger, left little finger (Acute) DOS: 06/21/23 Hypothyroid (Chronic) Chronic obstructive lung disease, type A (Chronic 03/26/13) Essential hypertension (Acute 10/05/13) Gastroesophageal reflux disease without esophagitis (Chronic) Obesity (Chronic) Ascending aorta dilatation (Acute) 3.7 cm on 11/2019 SOB (shortness of breath) (Acute) Screening for colon cancer (Acute) Hyperplastic colon polyp (Acute) Serrated adenoma of colon (Acute) Cough (Acute) Peripheral neuropathy (Acute) Ankle pain (Acute) Edema (Acute) Hypoxia (Acute) Medical History Contusion of arm, right Muscle strain of right upper arm Edema Ulnar neuropathy Carpal tunnel syndrome Smoker 1PPD/47 years--quit 10/24/2002 Asthma Cholecystitis 10/29/09 unspecified Impacted cerumen of right ear 01/15/15 Vitamin D deficiency disease (08/12/08) Tinnitus (01/15/15) Sensory hearing loss, bilateral (01/15/15) Osteoarthritis of right knee (10/29/15) 10/29/15; END STAGE RIGHT KNEE Metastatic colon cancer in female (01/23/17) 01/23/2017; 11/06 L.N. + ; S/P RIGHT HEMICOLECTOMY Malignant neoplasm of female breast (12/21/08) left mastectomy Hiatal hernia (09/02/08) Urinary, incontinence, stress female (05/04/11) Diverticulosis of colon without diverticulitis (11/19/08) As found during colonoscopy on 11/06/08 Disorder of vitamin B12 Anticoagulated on warfarin W/U neg. Breast cancer Colon polyp Renal insufficiency, mild Surgical History History of total bilateral knee replacement (TKR) Left carpal tunnel syndrome S/P ECTR: 02/02/2023 History of colonoscopy (~12/2021) Status post cholecystectomy Status post laparoscopic hysterectomy Status post left mastectomy (12/10/14) b/l S/P laparoscopic hysterectomy S/P total knee replacement left-2002; right-10/2005 Hysterectomy, Laproscopic (~1978) Hemicolectomy (01/23/17) RIGHT Colonoscopy - MAC (05/12/18) Colonoscopy - MAC (04/12/17) Cholecystectomy (~10/2009) Breast, Mastectomy Bilat Arthroplasty 10/29/15; RIGHT KNEE; DR. FORBES Family History Mother , 71 Heart disease Colon cancer Father , 75 Essential hypertension Heart disease Alcohol abuse Maternal Grandfather , 82 Essential hypertension Heart disease Stroke Paternal Grandfather , 62 Heart disease Maternal Grandmother , 88 Essential hypertension Breast cancer Paternal Grandmother , 98 Diabetes Essential hypertension Stroke Sister Asthma Sister No problems noted. Sister No problems noted. Son No problems noted. Son No problems noted. Son No problems noted. 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 [employer] Pets and animals: No Sexually active: No Do you think of yourself as: straight/heterosexual Current gender identity: female What is your relationship status?: How often do you talk on the phone with friends or family?: three or more times per week How often do you get together with friends or relatives?: three or more times per week How often do you attend rastafari or zoroastrian services?: decline to answer Do you belong to any clubs or organized social groups?: no Panel score (0-1 are the most socially isolated patients): 1 What type of physical activity do you participate in: other Details: Treadmill Duration: 15-30 minutes/day Frequency: daily Tabatha/Amish: Judaism Special tabatha needs: No Seatbelt use: always Helmet use: No Drive intox or ride w/intox rickshaw driver: No Do you feel safe at home: Yes Do you feel safe in your relationship?: Yes Additional Social history: lives alone Time Spent with Patient Time Spent with Patient: 70-84 minutes4 Time was spent: preparing to see the patient(eg.review tests), obtaining and/or reviewing separately otained hiistory, ordering medications,tests, procedures, referring, communicating with other health direct support professional caregiver, indepentently interpreting results, counseling the patient and care coordination
[2025-03-22 15:22] VITALS: BP 102/55; PULSE 72; RESP 15; TEMP 36.1; O2SAT 96
--- NOTE | 2025-03-22 17:05 | CMDISCH_ITS ---
Date of service: 03/22/25 Time of Service: 17:05 LACE Index Scoring Tool Questions: Length of Stay (in days): 1 Was the patient admitted via the E.D.?: Yes Comorbidities: Chronic Pulmonary Disease and Liver or Renal Disease E.D. Visits: 2 Answers: Total Score: 11 Risk of Readmission: High Risk Care Management Discharge Plan Reason for Hospitalization: Pneumonia, COPD, respiratory failure Discharge Plan: Kelly is discharged home via private vehicle with family. She will follow up with her PCP and discharge plan of care as directed. No new services are needed at the time of her discharge. Patient/Family Education Needs: Review discharge instructions, discuss Ask Me Three SDOH Health Related Social Needs: Health related social needs housing instability, house d, with risk of homelessness (Z59.811)
== END 2025-03-22 15:49 | disposition home or self-care (01) ==
LOC: ER 11:02 → MS 03-22 07:29
PROVIDERS: Admitting Provider Family Medicine; Emergency Provider Physician Assistant; PCP Family Medicine; Responsible Provider Nurse Practitioner Acute Care; Visit Provider Family Medicine
DX: A41.9 Sepsis, unspecified organism (principal); J96.21 Acute and chronic respiratory failure with hypoxia; J18.9 Pneumonia, unspecified organism; I50.30 Unspecified diastolic (congestive) heart failure; J44.0 Chronic obstructive pulmonary disease with (acute) lower respiratory infection; J44.1 Chronic obstructive pulmonary disease with (acute) exacerbation; E03.9 Hypothyroidism, unspecified; Z68.35 Body mass index [BMI] 35.0-35.9, adult; E66.9 Obesity, unspecified; Z79.899 Other long term (current) drug therapy; D50.9 Iron deficiency anemia, unspecified; I13.0 Hypertensive heart and chronic kidney disease with heart failure and stage 1 through stage 4 chronic kidney disease, or unspecified chronic kidney disease; N18.30 Chronic kidney disease, stage 3 unspecified; K21.9 Gastro-esophageal reflux disease without esophagitis; Z85.3 Personal history of malignant neoplasm of breast; Z85.038 Personal history of other malignant neoplasm of large intestine; E53.8 Deficiency of other specified B group vitamins; G62.9 Polyneuropathy, unspecified; R05.9 Cough, unspecified; R79.1 Abnormal coagulation profile; R93.422 Abnormal radiologic findings on diagnostic imaging of left kidney
CPT/HCPCS: 00123; 36415; 71275; 80048; 80053; 82805; 84145; 87040; 87637; 93005; 94640; 96361; 96365; 96366; 96367; 96368; 96372; 96375; 97161; 99285; J1650; 71046; 83605; 83735; 83880; 84484; 85025; 85379; 93010; 94760; 99223; 99239; G0378; J0696; J2919; J3490; J7512; J7620

== ENCOUNTER 2025-04-14 11:51 | Emergency (ER) | payer MEDICARE, SELFPAY ==
--- NOTE | 2025-04-14 11:45 | RT.EKG_ITS ---
APPROVED REPORT Exam: Resting ECG Reason for Exam: sob Patient Location: E HR:100 bpm ECG Measurements Heart Rate 100 AXIS NE 122 P 60 QRSd 106 QRS 56 QT 356 T 34 QTc 460 Conclusion Sinus tachycardia...rate> 99 Atrial premature complex...SV complex w/ short R-R interval Consider anterior infarct...Q >30mS in V2-V5 I have reviewed and interpreted ECG and agree with software generated interpretation.
[2025-04-14 11:57] VITALS: BP 137/115; PULSE 102; RESP 28; O2SAT 89
[2025-04-14] MEDS: Albuterol/Ipratropium 3 ML UPD VIAL 9 ML UPD (12:08)
[2025-04-14] MEDS: methylPREDNISolone SUCC 125 MG VIAL IVP (12:23)
[2025-04-14 12:26] LABS: Abs Immature Grans 0.02 10^3/uL (0.0-0.06); Absolute Basophil Count 0.03 10^3/uL (0.0-0.2); Absolute Eosinophil Count 0.31 10^3/uL (0.0-0.7); Absolute Lymphocyte Count 0.84 10^3/uL (1.2-3.4); Absolute Monocyte Count 0.78 10^3/uL (0.1-0.8); Basophils % 0.4 %; Eosinophils % 3.7 %; HCT 39.9 % (36.0-46.0); HGB 12.2 g/dL (11.2-15.7); Immature Grans % 0.2 %; Lactate 1.8 mmol/L (<or=2.0); MCH 26.9 pg (27.0-33.0); MCHC 30.6 % (32.0-36.0); MCV 88 fL (80-95); MPV 9.4 fL (8.0-11.0); Monocytes % 9.3 %; Neutrophils % 76.4 %; Platelet Count 220 10^3/uL (130-400); RBC 4.53 10^6/uL (3.93-5.22); RDW 16.2 % (11.7-14.6); RDW-SD 52.1 fL; WBC 8.38 10^3/uL (4.4-10.8)
--- NOTE | 2025-04-14 12:30 | W.ED.GENAD ---
Discharge Plan Disposition Patient Disposition: Home Condition: Stable Discharge Details Clinical Impression: Acute exacerbation of chronic obstructive pulmonary disease Primary Care Provider: Poly Copeland ED Provider: Walter Rojas Home Meds and New Rx's Prescriptions: No Action [id number] 600 mg calcium- 800 unit-50 mg tablet 1 tab PO DAILY cholecalciferol (vitamin D3) 1,000 unit capsule 1,000 unit PO DAILY ascorbic acid (vitamin C) 500 mg tablet 500 mg PO DAILY triamcinolone acetonide 0.1 % cream 1 applic TP BID Qty: 80 2RF Rx Instructions: apply to back and chin torsemide 20 mg tablet See Rx Instructions PO QAM Qty: 540 4RF Rx Instructions: 60mg in AM and 40mg in afternoon empagliflozin 10 mg tablet 10 mg PO QAM Qty: 90 4RF prednisone 20 mg tablet See Rx Instructions PO DAILY Qty: 11 0RF Rx Instructions: 2 tabs daily for 3 days; 1 tab daily for 3 days; 0.5 tab daily for 4 days promethazine 6.25 mg/5 mL syrup 12.5 mg PO Q6H PRN (Reason: cough) Qty: 200 3RF aspirin [Aspirin Low-Strength] 81 MG tablet,chewable 81 mg PO DAILY albuterol sulfate 90 mcg/actuation HFA aerosol inhaler 2 puff INHALATION QID PRN (Reason: shortness of breath or wheezing) Qty: 3 3RF levothyroxine 75 mcg tablet 75 mcg PO DAILY Qty: 90 6RF potassium chloride 20 mEq tablet,ER particles/crystals 20 meq PO BID Qty: 180 4RF Breztri Aerosphere 160-9-4.8 mcg/actuation HFA aerosol inhaler 2 inh inhalation BID Qty: 10.7 8RF omeprazole 20 mg capsule,delayed release(DR/EC) 20 mg PO DAILY Qty: 90 3RF polyethylene glycol 3350 17 gram/dose powder 238 g PO ONCE Qty: 238 0RF Rx Instructions: For Colonoscopy bowel prep, as directed by office ipratropium-albuterol 0.5 mg-3 mg(2.5 mg base)/3 mL solution for nebulization See Rx Instructions .ROUTE .COMPLEX Qty: 120 11RF Dose Instruction: USE 1 VIAL IN NEBULIZER EVERY 6 HOURS Rx Instructions: USE 1 VIAL IN NEBULIZER EVERY 6 HOURS cyanocobalamin (vitamin B-12) [Vitamin B-12] 500 mcg tablet 500 mcg PO DAILY Qty: 90 5RF ferrous sulfate 325 mg (65 mg iron) tablet 325 mg PO DAILY Qty: 90 5RF solifenacin [Vesicare] 10 mg tablet 10 mg PO DAILY Qty: 90 12RF Entresto 24-26 mg tablet 1 tab PO BID Qty: 180 6RF amoxicillin-pot clavulanate 875-125 mg tablet 1 tab PO BID Qty: 14 0RF multivitamin [Daily Multiple] 1 EACH tablet 1 ea PO DAILY benzonatate 100 mg Capsule 100 mg PO TID Qty: 90 0RF Discharge Instructions Instructions: COPD Exacerbation, Adult ED Additional Instructions: You were seen in the emergency department for your likely acute exacerbation of COPD, you were 89% oxygen on arrival. We performed breathing treatments and you have been resting comfortably and sleeping remaining above 91-92%. You have oxygen at home I think you need to start using it a little bit more. Please use nebulizers as needed for shortness of breath. The CT angiogram of your chest shows full resolution of your pneumonia and no pulmonary embolism, he had no elevation of white blood cells indicating severe infection in your blood gas level showed no retention of CO2 at this time, your lactate is negative indicating no sepsis, CT showed no pulmonary edema, you tested negative for COVID flu and RSV. Please return to the emergency department for severe increase in shortness of breath, chest pain or other emergent concerns. Referrals: Poly Copeland MD, [place] [Primary Care Provider, Medicine] Discharge Data Discharge Date/Time-TO BE ENTERED AT DEPARTURE: 04/14/25 16:35 HPI General Date/Time Provider Initiated Documentation: 04/14/25 11:58. HPI Narrative: 85 year-old female presents to ED today by POV/ambulating with a chief complaint of shortness of breath in the setting of COPD, has home-oxygen but only uses it intermittently, with onset today. Patient was recently treated for pneumonia 2 weeks ago. Quality described as generalized shortness of breath, no radiation to chest pain, fever, productive cough, nausea/vomiting, weakness, endorses dizziness. Severity is described as moderate. Palliating factors include nothing specific. Provoking factors include nothing specific. Events leading up to the incident/Associated Symptoms: Patient has history of breast cancer, colon cancer, had a recent suspicious finding on kidney with recent Chest CT- has U/S scheduled next week. Patient not anticoagulated. Related Data Home Medications ?Medication ?Instructions ?Recorded ?Confirmed aspirin 81 mg chewable tablet 81 mg PO DAILY 11/05/15 04/14/25 (Aspirin Low-Strength) multivitamin (Daily Multiple 1 ea PO DAILY 04/07/17 04/14/25 tablet) calcium 600 mg-D3 800 unit-mag11 1 tab PO DAILY 01/15/19 04/14/25 50 ep-nbxz-jxvqvv-bandar-s.borat tablet cholecalciferol (vitamin D3) 25 1,000 unit PO DAILY 07/26/19 04/14/25 mcg (1,000 unit) capsule ascorbic acid (vitamin C) 500 mg 500 mg PO DAILY 01/10/24 04/14/25 tablet triamcinolone acetonide 0.1 % 1 applic topical BID #80 grams 01/10/24 04/14/25 topical cream albuterol sulfate 90 mcg/actuation 2 puff inhalation QID PRN 05/15/24 04/14/25 aerosol inhaler shortness of breath or wheezing #3 ea levothyroxine 75 mcg tablet 75 mcg PO DAILY #90 tabs 06/11/24 04/14/25 potassium chloride 20 mEq 20 meq PO BID #180 tabs 07/10/24 04/14/25 tablet,extended release(part/cryst) Breztri Aerosphere 160 2 inh inhalation BID #10.7 grams 10/20/24 04/14/25 mcg-9mcg-4.8mcg/actuation HFA aerosol inhaler (bnedasycfr-ecjzquce-fezvuwcfld) omeprazole 20 mg capsule,delayed 20 mg PO DAILY #90 tab-caps 11/21/24 04/14/25 release benzonatate 100 mg capsule 100 mg PO TID #90 caps 11/29/24 04/14/25 polyethylene glycol 3350 17 238 g PO ONCE #238 grams 12/03/24 04/14/25 gram/dose oral powder ipratropium 0.5 mg-albuterol 3 mg See Rx Instructions .Route 12/18/24 04/14/25 (2.5 mg base)/3 mL nebulization .COMPLEX #120 ea soln cyanocobalamin (vitamin B-12) 500 500 mcg PO DAILY #90 tabs 12/24/24 04/14/25 mcg tablet (Vitamin B-12) ferrous sulfate 325 mg (65 mg 325 mg PO DAILY #90 tabs 12/24/24 04/14/25 iron) tablet empagliflozin 10 mg tablet 10 mg PO QAM #90 tabs 12/27/24 04/14/25 torsemide 20 mg tablet See Rx Instructions PO QAM #540 12/27/24 04/14/25 tabs solifenacin 10 mg tablet (Vesicare) 10 mg PO DAILY #90 tabs 01/29/25 04/14/25 sacubitril 24 mg-valsartan 26 mg 1 tab PO BID #180 tabs 01/30/25 04/14/25 tablet (Entresto) prednisone 20 mg tablet See Rx Instructions PO DAILY #11 03/28/25 04/14/25 tabs promethazine 6.25 mg/5 mL oral 12.5 mg (10 mL) PO Q6H PRN cough 03/29/25 04/14/25 syrup #200 mL amoxicillin 875 mg-potassium 1 tab PO BID #14 tabs 04/08/25 04/14/25 clavulanate 125 mg tablet Previous Rx's ?Medication ?Instructions ?Recorded triamcinolone acetonide 0.1 % 1 applic topical BID #80 grams 01/10/24 topical cream albuterol sulfate 90 mcg/actuation 2 puff inhalation QID PRN 05/15/24 aerosol inhaler shortness of breath or wheezing #3 ea levothyroxine 75 mcg tablet 75 mcg PO DAILY #90 tabs 06/11/24 potassium chloride 20 mEq 20 meq PO BID #180 tabs 07/10/24 tablet,extended release(part/cryst) Breztri Aerosphere 160 2 inh inhalation BID #10.7 grams 10/20/24 mcg-9mcg-4.8mcg/actuation HFA aerosol inhaler (pvfiaggafh-ptpcllmk-tyijtkuapr) omeprazole 20 mg capsule,delayed 20 mg PO DAILY #90 tab-caps 11/21/24 release benzonatate 100 mg capsule 100 mg PO TID #90 caps 11/29/24 polyethylene glycol 3350 17 238 g PO ONCE #238 grams 12/03/24 gram/dose oral powder ipratropium 0.5 mg-albuterol 3 mg See Rx Instructions .Route 12/18/24 (2.5 mg base)/3 mL nebulization .COMPLEX #120 ea soln cyanocobalamin (vitamin B-12) 500 500 mcg PO DAILY #90 tabs 12/24/24 mcg tablet (Vitamin B-12) ferrous sulfate 325 mg (65 mg 325 mg PO DAILY #90 tabs 12/24/24 iron) tablet empagliflozin 10 mg tablet 10 mg PO QAM #90 tabs 12/27/24 torsemide 20 mg tablet See Rx Instructions PO QAM #540 12/27/24 tabs solifenacin 10 mg tablet (Vesicare) 10 mg PO DAILY #90 tabs 01/29/25 sacubitril 24 mg-valsartan 26 mg 1 tab PO BID #180 tabs 01/30/25 tablet (Entresto) prednisone 20 mg tablet See Rx Instructions PO DAILY #11 03/28/25 tabs promethazine 6.25 mg/5 mL oral 12.5 mg (10 mL) PO Q6H PRN cough 03/29/25 syrup #200 mL amoxicillin 875 mg-potassium 1 tab PO BID #14 tabs 04/08/25 clavulanate 125 mg tablet Allergies Allergy/AdvReac Type Severity Reaction Status Date / Time Sulfa (Sulfonamide Allergy Intermediate BURNING Verified 03/21/25 10:48 Antibiotics) TONGUE letrozole AdvReac Intermediate Insomnia, Verified 04/14/25 12:00 depression General Stated Complaint: RespSymp LALA: 2 Review of Systems All systems reviewed & are unremarkable except as noted in HPI and below Exam Narrative Exam Narrative: GENERAL APPEARANCE: Well-nourished, non-toxic, awake and alert, atraumatic, mild acute distress. SKIN: Warm, pink, dry, intact, without rashes/lesions/ulcerations. HEAD: Normocephalic, atraumatic, normal hair distribution for gender/age. EYES: Normal conjunctiva, no exudates on lids/lashes. ENT: Nares patent, no circumoral cyanosis, no facial swelling NECK: Supple, trachea midline, painless cervical ROM. LUNGS/CHEST: Lungs - mild expiratory wheezing, labored respirations, normal A/P diameter, symmetrical expansion, no chest wall deformity HEART (CV/PV): Regular rate and rhythm without murmur, no peripheral edema, no JVD. ABDOMEN: Soft, non-distended, no guarding, no tenderness. MSK: Normal ROM, no swelling/deformity to bilateral UEs or LEs, moving all extremities without weakness, no cyanosis, spine midline without tenderness, normal curvature. NEURO: Mental Status AAOx4 - alert to person, place, time, events No facial droop, no forehead involvement. Motor: No focal weakness - strength 5/5 in bilateral UEs and LEs, proximal and distal, symmetric. Sensory: sensation intact to light touch globally. Gait normal: patient ambulated without ataxia into ED room. PSYCH: euthymic, cooperative, pleasant, appropriate speech Course Vital Signs Vital signs: Vital Signs Pulse 102 H 04/14/25 11:57 Respiratory Rate 28 H 04/14/25 11:57 Blood Pressure 137/115 H 04/14/25 11:57 Pulse Oximetry 89 L 04/14/25 11:57 Pulse 102 H 04/14/25 11:57 Respiratory Rate 28 H 04/14/25 11:57 Blood Pressure 137/115 H 04/14/25 11:57 Blood Pressure Position Supine 04/14/25 11:57 Pulse Oximetry 89 L 04/14/25 11:57 Oxygen Delivery Method Room Air 04/14/25 11:57 Oxygen Flow Rate 0 04/14/25 11:57 Medical Decision Making This dictation utilizes chrvp-xz-jywo dictation software and may contain unedited grammatical errors. 85 year-old female presents to ED today by POV/ambulating with a chief complaint of shortness of breath in the setting of COPD, has home-oxygen but only uses it intermittently, with onset today. Patient was recently treated for pneumonia 2 weeks ago. Quality described as generalized shortness of breath, no radiation to chest pain, fever, productive cough, nausea/vomiting, weakness, endorses dizziness. Severity is described as moderate. Palliating factors include nothing specific. Provoking factors include nothing specific. Events leading up to the incident/Associated Symptoms: Patient has history of breast cancer, colon cancer, had a recent suspicious finding on kidney with recent Chest CT- has U/S scheduled next week. Patients' medical history: Asthma, cholecystitis, CKD, renal mass, acute on chronic hypoxic respiratory failure, pneumonia, diastolic CHF, COPD, ascending aortic dilatation, obesity, hypertension, peripheral neuropathy. Family and social history: [ ]. Pertinent exam findings / vital signs include expiratory wheezes at bases, labored breathing, 89% SpO2 on arrival, benign abdomen, mildly tachycardic, neuro intact, afebrile & nontoxic apperance. Differential / pathologies of concern include COPD Exacerbation, PE, ACS, PNA, PTX. Diagnostic studies of: - CBC, CMP, lactate, D-dimer, troponin, BNP, lipase, UA, magnesium, EKG, CTA chest PE study. - CBC shows no leukocytosis, no anemia - Lactate negative, do not suspect sepsis - CMP without actionable abnormality - Magnesium within normal meds - D-dimer is 2000 refluxing to CTA chest - Lipase negative - UA benign - COVID/flu/RSV PCR negative - EKG shows sinus tachycardia at 100 bpm with normal axis, good R wave progression, no ST changes, normal intervals Interventions of: -IVP methylprednisolone, 9mL DuoNeb, 1gm magnesium for SOB. ED Course/Assessment/Plan: 85-year-old female presents with some labored respirations after recently being treated for pneumonia, has known COPD with oxygen at home that she uses intermittently. She recently finished a steroid burst, I do not think she needs a long-term steroid at this point, it has been very humid out as likely source with resolution of her pneumonia seen on CTA, no PE seen, she was given an hour-long DuoNeb as well as steroids here and 1 g of magnesium for shortness of breath. She was resting comfortably and sleeping remaining above 91%, counseled her that she needs to follow-up with pulmonology and maybe start using her oxygen more and more for advancing COPD, strict return criteria for any worsening respiratory distress or chest pain or other emergent concern. Findings not consistent with PE, ACS, continued pneumonia, sepsis, hypoxemic respiratory failure. Disposition of Acute exacerbation of chronic obstructive pulmonary disease. Patient verbalized understanding of the plan and return to ED criteria and engaged in shared decision making. Medical Records Medical records reviewed: Yes I reviewed the patient's medical records. Imaging Data Radiologic Study: Attestation: I personally reviewed and interpreted this imaging study as follows: Imaging: CT Scan Radiologist's impression: EXAM: CT CHEST PE CTA CLINICAL HISTORY: hypoxia; elev d-dimer. TECHNIQUE: Imaging Protocol: Axial CT angiography was performed with multi-slice acquisition and multi-planar and/or 3D reconstructions. Lung Computer Aided Detection (CAD) was utilized. CONTRAST MATERIAL: Intravenous: Omnipaque 350 contrast volume:150 mL COMPARISON: CT CT CHEST PE CTA from 03/21/2025 FINDINGS: Tracheobronchial tree: Patent where visualized. No bronchiectasis. Pulmonary parenchyma: Emphysematous changes are present in the lungs. Atelectatic changes are seen in the dependent portions of the lungs. The right basilar infiltrate has resolved. No focal consolidating infiltrates are seen. No architectural distortion. Pulmonary Arteries: No evidence of filling defect to suggest pulmonary emboli. Mediastinum and Dari: No dominant adenopathy or fluid collection. The esophagus is unremarkable. There is a small hiatal hernia. Visualized thyroid gland: Unremarkable. Pleura: No effusion or pneumothorax. Heart: The heart is not dilated. Coronary artery calcifications are present. No pericardial effusion. Aorta: Thoracic aorta non-dilated. No evidence of dissection. Atherosclerotic calcification is present. Upper abdomen: Unremarkable. Soft tissues: Unremarkable. Bones: Within normal limits for the patient's age. IMPRESSION: 1. No evidence of pulmonary embolism, thoracic aortic dissection or aneurysm. 2. Resolution of the right basilar infiltrate. No acute pulmonary process. Lab Data Lab results reviewed: Yes I reviewed the patient's lab results. Labs: Laboratory Tests Range/Units 04/14/25 04/14/25 12:15 12:41 WBC (4.4-10.8) 10^3/uL 8.38 RBC (3.93-5.22) 10^6/uL 4.53 Hgb (11.2-15.7) g/dL 12.2 Hct (36.0-46.0) % 39.9 MCV (80-95) fL 88 MCH (27.0-33.0) pg 26.9 L MCHC (32.0-36.0) % 30.6 L RDW (11.7-14.6) % 16.2 H Plt Count (130-400) 10^3/uL 220 MPV (8.0-11.0) fL 9.4 Immature Gran % % 0.2 Neutrophils % % 76.4 Lymphocytes % % 10.0 Monocytes % % 9.3 Eosinophils % % 3.7 Basophils % % 0.4 Nucleated RBC % (0.0-0.3) % 0.0 Absolute Neutrophils (1.2-6.7) 10^3/uL 6.40 Absolute Lymphocytes (1.2-3.4) 10^3/uL 0.84 L Absolute Monocytes (0.1-0.8) 10^3/uL 0.78 Absolute Eosinophils (0.0-0.7) 10^3/uL 0.31 Absolute Basophils (0.0-0.2) 10^3/uL 0.03 D-Dimer (<500) ng/mlFEU 1984 H VBG Lactate (<or=2.0) mmol/L 1.8 Sodium (136-145) mmol/L 141 Potassium (3.5-5.1) mmol/L 4.4 Chloride (98-107) mmol/L 103 Carbon Dioxide (21.0-32.0) mmol/L 27.8 Anion Gap (3-11) mmol/L 10.2 BUN (7-18) mg/dL 12 Creatinine (0.55-1.02) mg/dL 1.0 Est GFR (CKD-EPI 2020) (mL/min/1.73m2) 55.90 Glucose (74-106) mg/dL 92 Calcium (8.5-10.1) mg/dL 9.2 Magnesium (1.8-2.4) mg/dL 1.9 Total Bilirubin (0.2-1.0) mg/dL 0.4 AST (15-37) U/L 14 L ALT (14-59) U/L 23 Alkaline Phosphatase (46-116) U/L 87 Troponin I (<or=51) ng/L 7 NT-Pro-B Natriuret Pep (<300) pg/mL 387 H Total Protein (6.4-8.2) g/dL 7.5 Albumin (3.4-5.0) g/dL 2.9 L Lipase (<78) U/L 33 Urine Color (Yellow) Straw Urine Clarity (Clear) Clear Urine pH (5-8) 5.5 Ur Specific Dille (1.005-1.025) 1.010 Urine Protein (Neg-Trace) mg/dL Negative Urine Ketones (Negative) mg/dL Negative Urine Blood (Negative) Negative Urine Nitrite (Negative) Negative Urine Bilirubin (Negative) Negative Urine Urobilinogen (Up to 0.2) mg/dL 0.2 Ur Leukocyte Esterase (Negative) Negative Urine Glucose (Negative) mg/dL 250 H COVID-19 Source Nasopharynx SARS-CoV-2 (PCR) (Negative) Negative Influenza Type A (PCR) (Negative) Negative Influenza Type B (PCR) (Negative) Negative RSV (PCR) (Negative) Negative Quality:SDOH Health Related Social Needs: Health related social needs risk of homeless PFSH All Active Problems (Updated 04/14/25 @ 15:54 by SARAH Yu) Acute exacerbation of chronic obstructive pulmonary disease (Acute) Renal mass (Acute) CKD (chronic kidney disease) stage 3, GFR 30-59 ml/min (Acute) Acute on chronic hypoxic respiratory failure (Acute) CAP (community acquired pneumonia) (Acute) Change in hearing (Acute) B12 deficiency (Acute) Diastolic CHF (Acute) Trigger finger, left ring finger (Acute) Former smoker (Acute) Renal insufficiency (Chronic) Trigger finger, left little finger (Acute) DOS: 06/21/23 Hypothyroid (Chronic) Chronic obstructive lung disease, type A (Chronic 03/26/13) Essential hypertension (Acute 10/05/13) Gastroesophageal reflux disease without esophagitis (Chronic) Obesity (Chronic) Ascending aorta dilatation (Acute) 3.7 cm on 11/2019 SOB (shortness of breath) (Acute) Screening for colon cancer (Acute) Hyperplastic colon polyp (Acute) Serrated adenoma of colon (Acute) Cough (Acute) Peripheral neuropathy (Acute) Ankle pain (Acute) Edema (Acute) Hypoxia (Acute) Medical History Contusion of arm, right Muscle strain of right upper arm Edema Ulnar neuropathy Carpal tunnel syndrome Smoker 1PPD/47 years--quit 10/24/2002 Asthma Cholecystitis 10/29/09 unspecified Impacted cerumen of right ear 01/15/15 Vitamin D deficiency disease (08/12/08) Tinnitus (01/15/15) Sensory hearing loss, bilateral (01/15/15) Osteoarthritis of right knee (10/29/15) 10/29/15; END STAGE RIGHT KNEE Metastatic colon cancer in female (01/23/17) 01/23/2017; 11/06 L.N. + ; S/P RIGHT HEMICOLECTOMY Malignant neoplasm of female breast (12/21/08) left mastectomy Hiatal hernia (09/02/08) Urinary, incontinence, stress female (05/04/11) Diverticulosis of colon without diverticulitis (11/19/08) As found during colonoscopy on 11/06/08 Disorder of vitamin B12 Anticoagulated on warfarin W/U neg. Breast cancer Colon polyp Renal insufficiency, mild Surgical History History of total bilateral knee replacement (TKR) Left carpal tunnel syndrome S/P ECTR: 02/02/2023 History of colonoscopy (~12/2021) Status post cholecystectomy Status post laparoscopic hysterectomy Status post left mastectomy (12/10/14) b/l S/P laparoscopic hysterectomy S/P total knee replacement left-2002; right-10/2005 Hysterectomy, Laproscopic (~1978) Hemicolectomy (01/23/17) RIGHT Colonoscopy - MAC (05/12/18) Colonoscopy - MAC (04/12/17) Cholecystectomy (~10/2009) Breast, Mastectomy Bilat Arthroplasty 10/29/15; RIGHT KNEE; DR. FORBES Family History Mother , 71 Heart disease Colon cancer Father , 75 Essential hypertension Heart disease Alcohol abuse Maternal Grandfather , 82 Essential hypertension Heart disease Stroke Paternal Grandfather , 62 Heart disease Maternal Grandmother , 88 Essential hypertension Breast cancer Paternal Grandmother , 98 Diabetes Essential hypertension Stroke Sister Asthma Sister No problems noted. Sister No problems noted. Son No problems noted. Son No problems noted. Son No problems noted. 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 Pets and animals: No Sexually active: No Do you think of yourself as: straight/heterosexual Current gender identity: female What is your relationship status?: How often do you talk on the phone with friends or family?: three or more times per week How often do you get together with friends or relatives?: three or more times per week How often do you attend scientology or orthodoxy services?: decline to answer Do you belong to any clubs or organized social groups?: no Panel score (0-1 are the most socially isolated patients): 1 What type of physical activity do you participate in: other Details: Treadmill Duration: 15-30 minutes/day Frequency: daily Tabatha/Zoroastrianism: Jehovah'S Witness Special tabatha needs: No Seatbelt use: always Helmet use: No Drive 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
[2025-04-14 13:00] LABS: Bilirubin Negative (Negative); Blood Negative (Negative); Clarity Clear (Clear); Glucose 250 mg/dL (Negative); Ketones Negative (Negative); Leukocyte Esterase Negative (Negative); Nitrite Negative (Negative); Urobilinogen 0.2 mg/dL (Up to 0.2); pH 5.5 (5-8)
[2025-04-14 13:04] LABS: ALT 23 U/L (14-59); AST 14 U/L (15-37); Albumin 2.9 g/dL (3.4-5.0); Alkaline Phosphatase 87 U/L (46-116); Anion Gap 10.2 mmol/L (3-11); BUN 12 mg/dL (7-18); Bilirubin, Total 0.4 mg/dL (0.2-1.0); CO2 27.8 mmol/L (21.0-32.0); Calcium 9.2 mg/dL (8.5-10.1); Chloride 103 mmol/L (98-107); Glucose 92 mg/dL (74-106); Lipase 33 U/L (<78); Magnesium 1.9 mg/dL (1.8-2.4); NT-proBNP 387 pg/mL (<300); Potassium 4.4 mmol/L (3.5-5.1); Sodium 141 mmol/L (136-145); Total Protein 7.5 g/dL (6.4-8.2); Troponin I 7 ng/L (<or=51)
[2025-04-14 13:14] LABS: D-Dimer 1984 ng/mlFEU (<500)
[2025-04-14 13:27] LABS: COVID-19 PCR Negative (Negative); Influenza A PCR Negative (Negative); Influenza B PCR Negative (Negative); RSV PCR Negative (Negative)
--- NOTE | 2025-04-14 13:30 | DI.CT_ITS ---
Exam(s) CT CHEST PE CTA EXAM: CT CHEST PE CTA CLINICAL HISTORY: hypoxia; elev d-dimer. TECHNIQUE: Imaging Protocol: Axial CT angiography was performed with multi- slice acquisition and multi-planar and/or 3D reconstructions. Lung Computer Aided Detection (CAD) was utilized. CONTRAST MATERIAL: Intravenous: Omnipaque 350 contrast volume:150 mL COMPARISON: CT CT CHEST PE CTA from 03/21/2025 FINDINGS: Tracheobronchial tree: Patent where visualized. No bronchiectasis. Pulmonary parenchyma: Emphysematous changes are present in the lungs. Atelectatic changes are seen in the dependent portions of the lungs. The right basilar infiltrate has resolved. No focal consolidating infiltrates are seen. No architectural distortion. Pulmonary Arteries: No evidence of filling defect to suggest pulmonary emboli. Mediastinum and Dari: No dominant adenopathy or fluid collection. The esophagus is unremarkable. There is a small hiatal hernia. Visualized thyroid gland: Unremarkable. Pleura: No effusion or pneumothorax. Heart: The heart is not dilated. Coronary artery calcifications are present. No pericardial effusion. Aorta: Thoracic aorta non-dilated. No evidence of dissection. Atherosclerotic calcification is present. Upper abdomen: Unremarkable. Soft tissues: Unremarkable. Bones: Within normal limits for the patient's age. IMPRESSION: 1. No evidence of pulmonary embolism, thoracic aortic dissection or aneurysm. 2. Resolution of the right basilar infiltrate. No acute pulmonary process. RADIATION DOSE DELIVERED: 57.46 mGy.cm Total DLP DATA REPOSITORY: All CT scans at this facility are submitted to the National Radiology Data Registry (NRDR) Dose Index Registry (DIR) with the [employer] (ACR). RADIATION OPTIMIZATION: All CT scans at this facility use at least one of these dose optimization techniques: automated exposure control; mA and/or kV adjustment per patient size (includes targeted exams where dose is matched to clinical indication); or iterative reconstruction.
[2025-04-14 13:31] LABS: Source Nasopharynx
[2025-04-14 14:25] LABS: BE (Venous) 3 mmol/L (-2-3); HCO3 (Venous) 27 mmol/L (23-28); O2 Sat (Venous) 73 %; TCO2 (Venous) 24 mmol/L (24-29); pCO2 (Venous) 38 mmHg (41-51); pH (Venous) 7.46 (7.31-7.41); pO2 (Venous) 37 mmHg
[2025-04-14] MEDS: Normal Saline - Diluent 50 ML VIAL IJ (14:32)
[2025-04-14] MEDS: Omnipaque 350 MG/ML 100 ML BTL IJ (14:37)
[2025-04-14 15:01] VITALS: BP 106/45; PULSE 91; RESP 16; O2SAT 94
[2025-04-14 16:33] VITALS: BP 105/87; PULSE 91; RESP 18; O2SAT 93
== END 2025-04-14 16:35 | disposition home or self-care (01) ==
PROVIDERS: Emergency Provider Physician Assistant; PCP Family Medicine
DX: J44.1 Chronic obstructive pulmonary disease with (acute) exacerbation (principal); R00.0 Tachycardia, unspecified; I13.0 Hypertensive heart and chronic kidney disease with heart failure and stage 1 through stage 4 chronic kidney disease, or unspecified chronic kidney disease; N18.30 Chronic kidney disease, stage 3 unspecified; I50.32 Chronic diastolic (congestive) heart failure; Z99.81 Dependence on supplemental oxygen; Z79.82 Long term (current) use of aspirin
CPT/HCPCS: 36415; 71275; 80053; 82805; 83690; 87637; 93005; 94640; 96374; 99285; 81003; 83605; 83735; 83880; 84484; 85025; 85379; 93010; J2919; J3490; J7620

== ENCOUNTER 2025-04-16 02:12 | Outpatient (CLI) | payer MEDICARE, SELFPAY ==
--- NOTE | 2025-04-16 06:30 | DI.US_ITS ---
Exam(s) US RENAL EXAM: US RENAL CLINICAL HISTORY: f/u recent imaging, ? lt renal mass,N28.89. TECHNIQUE: Lino scale imaging and color doppler were used. COMPARISON: CT CT CHEST/ABD/PEL W from 06/25/[address] CHEST WO from 11/27/[address] CHEST PE CTA from 03/21/[address] CHEST PE CTA from 04/14/2025 FINDINGS: Exam is limited by patient body habitus. Right kidney: 10.0cm Echogenicity: Normal Hydronephrosis: No Cyst or mass: No Nephrolithiasis: No Left kidney: 10.3cm Echogenicity: Normal Hydronephrosis: No Cyst or mass: There is question of a mass at the posterior lateral aspect of the left kidney seen only in the transverse plane. It is avascular measured 3.2 x 1.8 x 3.0 cm. Nephrolithiasis: No Bladder:Normal. Both ureteral jets were visualized. Prevoid vol:347 cc Postvoid vol:18 cc IMPRESSION: Question of a mass at the lateral aspect of the left kidney. Contrast-enhanced CT recommended for further evaluation. Unexpected findings DATA REPOSITORY:
== END 2025-04-16 02:32 ==
LOC: DI 02:12
PROVIDERS: PCP Family Medicine; Visit Provider Family Medicine
DX: N28.89 Other specified disorders of kidney and ureter (principal)
CPT/HCPCS: 76770

== ENCOUNTER 2025-04-30 01:48 | Outpatient (CLI) | payer MEDICARE, SELFPAY ==
[2025-04-30] MEDS: Barium Sulfate 2% W/V-Berry Smoothie 450 ML BTL PO ×2 (08:39→08:40)
[2025-04-30] MEDS: Normal Saline - Diluent 50 ML VIAL IJ (11:38)
[2025-04-30] MEDS: Omnipaque 350 MG/ML 100 ML BTL IJ (11:38)
--- NOTE | 2025-04-30 11:40 | DI.CT_ITS ---
Exam(s) CT ABDOMEN PELVIS WO/W EXAM: CT ABDOMEN PELVIS WO/W CLINICAL HISTORY: renal mass,n28.89. TECHNIQUE: Imaging Protocol: Axial computed tomography images with coronal and sagittal reformatted images were created and reviewed. Images were performed from the lung bases through the ischial tuberosities before IV contrast and following IV contrast using a 70 second delay, followed by 7 minutes delayed images. CONTRAST MATERIAL: Intravenous: Omnipaque 350 Contrast volume:100 cc Oral:Yes COMPARISON: CT CT CHEST/ABD/PEL W from 06/25/[address] CHEST PE CTA from 04/14/2025 US US RENAL from 04/16/2025 FINDINGS: Lung Bases: No acute findings. Tiny hiatal hernia. Liver: Normal density. No measurable mass. Gallbladder and biliary tract: Cholecystectomy. No biliary dilation. Pancreas: Mildly atrophic. No abnormal calcifications or inflammatory process. Spleen: Normal. Kidneys: Normal size, contour and axis. No radiodense stones or obstructive uropathy. No suspicious masses seen. There are few tiny cysts bilaterally. Adrenal glands: No masses seen. Lymph nodes: Within normal limits. Abdominal Aorta: Abdominal portion non-dilated. Atherosclerotic calcification. Soft tissues: Unremarkable. Bladder: No gross wall thickening. No evidence of a mass.No evidence of calculi. Bowel: Stomach unremarkable. No obstruction or bowel wall thickening. Diverticulosis of the lower descending and sigmoid colon. Peritoneal cavity: No ascites, collection or mesenteric inflammatory response. Bones: Unremarkable for age.. Reproductive organs: Hysterectomy. IMPRESSION: No suspicious renal mass. No evidence of urinary tract calculi. No evidence of hydronephrosis. RADIATION DOSE DELIVERED: Total DLP DATA REPOSITORY: All CT scans at this facility are submitted to the National Radiology Data Registry (NRDR) Dose Index Registry (DIR) with the [employer] ([employer]). RADIATION OPTIMIZATION: All CT scans at this facility use at least one of these dose optimization techniques: automated exposure control; mA and/or kV adjustment per patient size (includes targeted exams where dose is matched to clinical indication); or iterative reconstruction.
== END 2025-04-30 02:08 ==
LOC: DI 01:48
PROVIDERS: PCP Family Medicine; Visit Provider Family Medicine
DX: N28.89 Other specified disorders of kidney and ureter (principal)
CPT/HCPCS: 74178; J3490

== ENCOUNTER → 2025-05-09 13:46 | Outpatient (BNVA) | payer MEDICARE, SELFPAY | PROVIDERS: PCP Family Medicine; Referring Provider Family Medicine; Visit Provider Internal Medicine Pulmonary Disease | DX: J43.9 Emphysema, unspecified (principal); J96.11 Chronic respiratory failure with hypoxia; Z23 Encounter for immunization; Z87.891 Personal history of nicotine dependence | CPT/HCPCS: 99214; 94618; 90471; 90684 ==

== ENCOUNTER 2025-06-10 08:57 | Outpatient (CLI) | payer MEDICARE, SELFPAY ==
[2025-06-10 12:30] LABS: HCT 44.0 % (36.0-46.0); HGB 13.0 g/dL (11.2-15.7); MCH 27.1 pg (27.0-33.0); MCHC 29.5 % (32.0-36.0); MCV 92 fL (80-95); MPV 10.3 fL (8.0-11.0); Platelet Count 239 10^3/uL (130-400); RBC 4.80 10^6/uL (3.93-5.22); RDW 15.6 % (11.7-14.6); RDW-SD 52.8 fL; WBC 7.13 10^3/uL (4.4-10.8)
[2025-06-10 12:46] LABS: Iron 132 ug/dL (50-170)
[2025-06-10 13:13] LABS: ALT 31 U/L (14-59); AST 19 U/L (15-37); Albumin 3.5 g/dL (3.4-5.0); Alkaline Phosphatase 95 U/L (46-116); Anion Gap 9.9 mmol/L (3-11); BUN 20 mg/dL (7-18); Bilirubin, Total 0.3 mg/dL (0.2-1.0); CO2 30.1 mmol/L (21.0-32.0); Calcium 9.5 mg/dL (8.5-10.1); Chloride 103 mmol/L (98-107); Estimated GFR 40.80 (mL/min/1.73m2); Glucose 108 mg/dL (74-106); NT-proBNP 136 pg/mL (<300); Potassium 3.9 mmol/L (3.5-5.1); Sodium 143 mmol/L (136-145); Total Protein 7.8 g/dL (6.4-8.2)
== END 2025-06-10 08:58 | disposition home or self-care (01) ==
LOC: LOS 09:00
PROVIDERS: PCP Family Medicine; Visit Provider Family Medicine
DX: D50.9 Iron deficiency anemia, unspecified (principal); I10 Essential (primary) hypertension; I50.9 Heart failure, unspecified
CPT/HCPCS: 36415; 80053; 85027; 83540; 83880

== ENCOUNTER → 2025-06-11 12:34 | Outpatient (BNVA) | payer MEDICARE, SELFPAY | PROVIDERS: PCP Family Medicine; Referring Provider Family Medicine; Visit Provider Internal Medicine Pulmonary Disease | DX: J43.9 Emphysema, unspecified (principal); J96.11 Chronic respiratory failure with hypoxia; Z23 Encounter for immunization | CPT/HCPCS: 90471; 96372; 90684; 94618; 99215 ==

== ENCOUNTER → 2025-08-05 08:49 | Outpatient (BNVA) | payer MEDICARE, SELFPAY | PROVIDERS: PCP Family Medicine; Referring Provider Family Medicine; Visit Provider Internal Medicine Pulmonary Disease | DX: J43.9 Emphysema, unspecified (principal); J96.11 Chronic respiratory failure with hypoxia; Z87.891 Personal history of nicotine dependence; Z23 Encounter for immunization | CPT/HCPCS: 90471; 90653; 99214 ==